=== PATIENT | male | born 1975 | race Caucasian/White ===

== ENCOUNTER → 2019-10-30 13:36 | Outpatient (BNVA) | payer MEDICARE, MEDICAID, SELFPAY | PROVIDERS: Family Provider Nurse Practitioner; PCP Nurse Practitioner; Visit Provider Nurse Practitioner Family | DX: E11.65 Type 2 diabetes mellitus with hyperglycemia (principal) | CPT/HCPCS: 36416; 80053; 80061; 82947; 82962; 83036; 83721; 85025 ==

== ENCOUNTER → 2019-11-19 10:55 | Outpatient (BNVA) | payer MEDICARE, MEDICAID, SELFPAY | PROVIDERS: Family Provider Nurse Practitioner; PCP Nurse Practitioner; Visit Provider Family Medicine | DX: E11.65 Type 2 diabetes mellitus with hyperglycemia (principal); I10 Essential (primary) hypertension; E53.8 Deficiency of other specified B group vitamins; G89.4 Chronic pain syndrome; K58.0 Irritable bowel syndrome with diarrhea; E78.2 Mixed hyperlipidemia; K21.9 Gastro-esophageal reflux disease without esophagitis; J06.9 Acute upper respiratory infection, unspecified; B97.89 Other viral agents as the cause of diseases classified elsewhere; A08.4 Viral intestinal infection, unspecified | CPT/HCPCS: 80053; 80061; 82607; 83036; 83735 ==

== ENCOUNTER → 2019-11-29 10:55 | Outpatient (BNVA) | payer MEDICARE, MEDICAID, SELFPAY | PROVIDERS: Family Provider Nurse Practitioner; PCP Family Medicine; Visit Provider Emergency Medicine | DX: J02.9 Acute pharyngitis, unspecified (principal); R22.1 Localized swelling, mass and lump, neck; R21 Rash and other nonspecific skin eruption | CPT/HCPCS: 87070 ==

== ENCOUNTER → 2019-12-05 17:28 | Outpatient (BNVA) | payer MEDICARE, MEDICAID, SELFPAY | PROVIDERS: Family Provider Nurse Practitioner; PCP Family Medicine; Visit Provider Emergency Medicine | DX: R22.9 Localized swelling, mass and lump, unspecified (principal) | CPT/HCPCS: 87070 ==

== ENCOUNTER 2019-12-09 12:33 | Outpatient (CLI) | payer MEDICARE, MEDICAID, SELFPAY ==
--- NOTE | 2019-12-09 13:00 | CT_ITS ---
WS: [id number] CT NECK TECHNIQUE: Noncontrast CT of the neck with coronal and sagittal reformatted images. CLINICAL INFORMATION: sub-madibular, anterior neck mass COMPARISON: None. DLP: 2892.[address] scans at [facility] use at least one of these dose optimization techniques: automat ed exposure control; mA and/or kV adjustment per patient size (includes targeted exams where dose is matched to clinical indication); or iterative reconstruction. FINDINGS: Parotid glands are normal. Submandibular glands are normal. No evidence of supraglottic or glottic ma ss. Normal parapharyngeal fat. Normal subglottic airway. No cervical lymphadenopathy. Mastoid air gavi ls are well aerated. Paranasal sinuses are well aerated. Anterior cervical fusion C3-C4 with interbod y fusion. Prior interbody fusion grafts at C4-C6. Straightening of the normal cervical lordosis. Lung apices are well aerated. CT/CT neck wo con [id number] IMPRESSION: 1. No evidence of neck mass or fluid collection. 2. Salivary glands are normal. 3. No cervical lymphadenopathy. 4. No evidence of supraglottic or glottic mass. 5. Anterior cervical fusion with hardware at C3-C4. Prior interbody bony fusio n at C4-C6.
== END 2019-12-09 12:34 | disposition home or self-care (01) ==
LOC: RADWPI 12:41
PROVIDERS: Family Provider Nurse Practitioner; PCP Family Medicine; Visit Provider Emergency Medicine
DX: R22.1 Localized swelling, mass and lump, neck (principal); Z98.1 Arthrodesis status
CPT/HCPCS: 70490

== ENCOUNTER → 2020-01-01 09:46 | Outpatient (BNVA) | payer MEDICARE, MEDICAID, SELFPAY | PROVIDERS: Family Provider Nurse Practitioner; PCP Family Medicine; Referring Provider Family Medicine; Visit Provider Specialist | DX: M79.645 Pain in left finger(s) (principal); Z46.89 Encounter for fitting and adjustment of other specified devices; M65.312 Trigger thumb, left thumb | CPT/HCPCS: 73130; L3809 ==

== ENCOUNTER 2020-01-01 14:05 | Outpatient (CLI) | payer MEDICARE, MEDICAID, SELFPAY | END 2020-01-01 14:06 | disposition home or self-care (01) | LOC: SPT 14:05 | PROVIDERS: Family Provider Nurse Practitioner; PCP Family Medicine; Visit Provider Specialist | DX: Z46.89 Encounter for fitting and adjustment of other specified devices (principal); M65.312 Trigger thumb, left thumb | CPT/HCPCS: L3809 ==

== ENCOUNTER → 2020-03-03 16:47 | Outpatient (BNVA) | payer MEDICARE, MEDICAID, SELFPAY | PROVIDERS: Family Provider Nurse Practitioner; PCP Family Medicine; Visit Provider Family Medicine | DX: E11.65 Type 2 diabetes mellitus with hyperglycemia (principal); E11.9 Type 2 diabetes mellitus without complications; I10 Essential (primary) hypertension; E78.5 Hyperlipidemia, unspecified; R79.89 Other specified abnormal findings of blood chemistry; E87.6 Hypokalemia; E83.42 Hypomagnesemia | CPT/HCPCS: 80048; 83036; 83735 ==

== ENCOUNTER 2020-03-14 20:37 | Emergency (ER) | payer MEDICARE, MEDICAID, SELFPAY ==
[2020-03-14] VITALS (16 sets, daily range): BP systolic 98–119; BP diastolic 70–86; PULSE 78–96; RESP 15–20; TEMP 36.6; O2SAT 95–99; BMI 27.3
--- NOTE | 2020-03-14 20:51 | CTR_ITS ---
PROCEDURE INFORMATION: Exam: CT Head Without Contrast Exam date and time: 03/14/2020 9:01 PM Age: 44 years old Clinical indication: Patient HX: C/O weakness, can't think straight; Additional info: ? Stroke TECHNIQUE: Imaging protocol: Computed tomography of the head without contrast. Radiation optimization: All CT scans at this facility use at least one of these dose optimization techniques: automated exposure control; mA and/or kV adjustment per patient size (includes targeted exams where dose is matched to clinical indication); or iterative reconstruction. COMPARISON: CT head wo con* [id number] 03/27/2018 9:53 PM RADIATION DOSE METRICS: Total DLP: 777.74 mGy-cm FINDINGS: Brain: The brain is unremarkable. There is no mass effect or significant white matter disease. There is no acute intracranial hemorrhage. Ventricles: There is no significant ventricular dilation. The basal cisterns are unremarkable. Bones/joints: The calvarium is intact. Sinuses: The paranasal sinuses are clear. Mastoid air cells: The mastoid air cells are clear. Soft tissues: The visible extracranial soft tissues are unremarkable. CT/CT head wo con* [id number] IMPRESSION: No acute findings. Radiation Dose CTDIVOL = (mGy): DLP = 777.74 (mGy-cm)
[2020-03-14 21:08] LABS: Basophils # 0.1 10^3/uL (0.0-0.1); Basophils % 0.6 %; Eosinophils # 0.3 10^3/uL (0.0-0.8); Eosinophils % 2.6 %; Hematocrit 45.2 % (42.0-52.0); Hemoglobin 13.9 g/dL (11.7-16.6); Lymphocytes # 2.8 10^3/uL (0.8-4.8); Mean Corpuscular HGB Conc 30.8 g/dL (30.0-36.0); Mean Corpuscular Hemoglobin 27.8 pg (28.0-34.0); Mean Corpuscular Volume 90.4 fL (80-94); Mean Platelet Volume 11.2 fL (7.4-10.4); Monocytes # 1.1 10^3/uL (0.2-0.9); Monocytes % 10.9 %; Neutrophils # 5.8 10^3/uL (1.8-7.7); Neutrophils % 57.4 %; Nucleated Red Blood Cells % 0 %; Platelet Count 246 10^3/cmm (130-400); Red Cell Distribution Width 13.7 % (12.1-15.1); White Blood Count 10.1 10^3/uL (4.0-10.0)
[2020-03-14 21:14] LABS: Ketone (Acetest) Serum Negative (Negative)
[2020-03-14 21:20] LABS: Lactate (Lactic Acid level) 1.4 mmol/L (0.5-2.2)
[2020-03-14 21:24] LABS: Alanine Aminotransferase 77 U/L (0-41); Albumin Level 4.1 g/dL (3.5-5.2); Alkaline Phosphatase 83 IU/L (40-130); Aspartate Amino Transferase 30 U/L (0-40); Blood Urea Nitrogen 18 mg/dL (6-20); Calcium 9.7 mg/dL (8.5-10.5); Carbon Dioxide 24 mmol/L (22-29); Chloride 104 mmol/L (98-107); Globulin 3.6 g/dL (1.3-4.6); Glomerular Filtration Rate 60.2 mL/min (90-130); Glucose 125 mg/dL (65-115); Magnesium 1.9 mg/dL (1.7-2.3); Osmolality Calculated 290 mOsm/kg (285-295); Sodium 141 mmol/L (136-145); Total Bilirubin 0.2 mg/dL (0.15-1.2); Total Protein 7.7 g/dL (6.6-8.7)
[2020-03-14 21:30] LABS: Alcohol Level < 10 mg/dL (0-10)
[2020-03-14] MEDS: sodium chloride 0.9% 1,000 ML 999 ML IV (21:32)
--- NOTE | 2020-03-14 21:34 | W.ED.WEAKNES ---
Documented by User: Jordyn Keating MD 03/16/20 19:22 HPI - Weakness General: Chief complaint: Weakness Stated complaint: TIA Time Seen by Provider: 03/14/20 20:41 History of Present Illness: HPI Narrative: Patient is a 44 year old male presenting with confusion and memory loss since about 3 pm. He reports that he has had a stroke before and had left sided weakness and slurred speech with that. He is worried that this is a stroke again. He says that he was sleepy and out of it at home and couldn't remember his grandkids names. He says that he still feels that way on the ED however he was able to give detailed surgical history including years, doctors names and where the procedures were done. Quality: aching (pain on his right side) Associated symptoms: Reports confusion; Denies chest pain, chills, easy bruising, fever(s), nausea or vomiting Review of Systems General: Reports: 10 or more systems reviewed and unremarkable except in HPI and below Const: Denies: fever(s), chills, fatigue or malaise Eyes: Reports: change in vision and blurry vision ENMT: Denies: odynophagia Card: Denies: chest pain or swelling of feet/ankles Resp: Denies: dyspnea, productive cough or non-productive cough GI: Denies: abdominal pain, nausea or vomiting : Denies: flank pain Musc: Denies: neck pain or back pain Skin/Breast: Denies: rash Neuro: Reports: numbness in extremities (mid forearm on the right, and right foot), sensory changes and confusion; Denies: weakness in extremities Nba/Lymph: Denies: easy bruising or easy bleeding PFSH ED PFSH: Medical History ADD (attention deficit disorder) Chronic pain syndrome GERD (gastroesophageal reflux disease) Hyperlipidemia Hypertension Irritable bowel syndrome Tobacco use Type 2 diabetes mellitus Social History Smoking and tobacco status: current every day smoker cigarettes and smokeless tobacco Quit status (tobacco): not considering quitting Second hand smoke exposure: Yes Smoking risk assessment/counseling performed?: No Alcohol intake: current Alcohol intake frequency: holidays/special occasions only Alcohol type: hard liquor Desire information about alcohol rehabilitation?: No Household members: spouse Current gender identity: Male Physical Exam Narrative: EXAM NARRATIVE: Patient talked non-stop throughout the history and exam Const: COMMON NORMALS: no acute distress, patient oriented x3, no limitations and alert GENERAL APPEARANCE: cooperative and comfortable HENMT: HEAD & SCALP: normal to inspection FACE & SINUS: normal facial exam Eye: GENERAL EYE: appearance normal, both eyes and all related structures Neck/C-Spine: COMMON NORMALS: supple, no meningeal signs and no JVD Chest: COMMONS NORMALS: normal inspection of the chest Resp: COMMON NORMALS: normal respiratory effort, No use of accessory muscles and clear to auscultation bilaterally AUSCULTATION: clear to auscultation bilaterally Cardio: COMMON NORMALS: no JVD, regular rate, regular rhythm and No murmurs present (Cardio) RATE: regular rate RHYTHM: regular rhythm GI: COMMON NORMALS: Normal to inspection, nondistended, normoactive bowel sounds present, Soft to palpation and non-tender INSPECTION: Yes normal to inspection AUSCULTATION: Yes normoactive bowel sounds PALPATION: Yes Soft to palpation Back/Pelvis: COMMON NORMALS: thoracic and lumbar spine normal to inspection Extremity: COMMON NORMALS: normal to inspection Neuro: COMMON NORMALS: patient oriented x3, moves all extremities, no focal motor deficits and no sensory deficits noted SENSORIUM/ORIENTATION: Yes alert MENINGEAL SIGNS: Yes no meningeal signs Psych: COMMON NORMALS: mental status grossly normal, cooperative and normal affect Skin: COMMON NORMALS: no rashes or lesions noted and turgor normal GENERAL SKIN EXAM: no rashes or lesions noted and turgor normal Course ED course: Stroke work up neg. Patient was ready to be discharged and started complaining of severe right lower quadrant pain. he says that it started after the IV was put in his arm. Will get a non contrast CT to eval for a kidney stone. Vital Signs: Vital signs: Vital Signs Temperature 97.8 F 03/14/20 20:43 Pulse Rate 96 03/14/20 23:40 Respiratory Rate 19 H 03/14/20 23:40 Blood Pressure 108/75 03/15/20 00:00 Pulse Oximetry 95 03/14/20 23:40 MDM - Weakness Lab Data: Labs: Lab Results 03/14/20 03/14/20 03/14/20 Range/Units 20:55 20:55 20:55 WBC 10.1 H (4.0-10.0) 10^3/ uL RBC 5.00 (4.1-5.3) 10^6/u L Hgb 13.9 (11.7-16.6) g/dL Hct 45.2 (42.0-52.0) % MCV 90.4 (80-94) fL MCH 27.8 L (28.0-34.0) pg MCHC 30.8 (30.0-36.0) g/dL RDW 13.7 (12.1-15.1) % Plt Count 246 (130-400) 10^3/c mm MPV 11.2 H (7.4-10.4) fL Neut % (Auto) 57.4 % Lymph % (Auto) 28.0 % [place] % (Auto) 10.9 % Eos % (Auto) 2.6 % Baso % (Auto) 0.6 % Neut # (Auto) 5.8 (1.8-7.7) 10^3/u L Lymph # (Auto) 2.8 (0.8-4.8) 10^3/u L [place] # (Auto) 1.1 H (0.2-0.9) 10^3/u L Eos # (Auto) 0.3 (0.0-0.8) 10^3/u L Baso # (Auto) 0.1 (0.0-0.1) 10^3/u L Nucleated RBC % (a uto) 0 % Nucleated RBCs # 0.0 /100WBC Sodium 141 (136-145) mmol/L Potassium 4.0 (3.5-5.1) mmol/L Chloride 104 (98-107) mmol/L Carbon Dioxide 24 (22-29) mmol/L Anion Gap 17.0 (5-19) BUN 18 (6-20) mg/dL Creatinine 1.3 H (0.7-1.2) mg/dL GFR Calculation 60.2 L (90-130) mL/min Glucose 125 H (65-115) mg/dL Calculated Osmolal ity 290 (285-295) mOsm/k g Lactate 1.4 (0.5-2.2) mmol/L Calcium 9.7 (8.5-10.5) mg/dL Magnesium 1.9 (1.7-2.3) mg/dL Total Bilirubin 0.2 (0.15-1.2) mg/dL AST 30 (0-40) U/L ALT 77 H (0-41) U/L Alkaline Phosphata se 83 (40-130) IU/L Total Protein 7.7 (6.6-8.7) g/dL Albumin 4.1 (3.5-5.2) g/dL Globulin 3.6 (1.3-4.6) g/dL Urine Color (Yellow) Urine Appearance (CLEAR) Urine pH (5-7) Ur Specific Gravit y (1.005-1.030) Urine Protein (Negative) Urine Glucose (UA) (Normal) Urine Ketones (Negative) Urine Blood (Negative) Urine Nitrate (Negative) Urine Bilirubin (NEGATIVE) Urine Urobilinogen (Negative) mg/dL Ur Leukocyte Carmen ase (Negative) Urine Opiates Scre en (Negative) ng/mL Ur Barbiturates Sc reen (Negative) ng/mL Ur Phencyclidine S crn (Negative) ng/mL Ur Amphetamines Sc reen (Negative) ng/mL U Benzodiazepines Scrn (Negative) ng/mL Urine Cocaine Scre en (Negative) ng/mL U Marijuana (THC) Screen (Negative) ng/mL Ethyl Alcohol < 10 (0-10) mg/dL Serum Ketones (Negative) 03/14/20 03/14/20 03/14/20 Range/Units 20:55 21:30 21:30 WBC (4.0-10.0) 10^3/ uL RBC (4.1-5.3) 10^6/u L Hgb (11.7-16.6) g/dL Hct (42.0-52.0) % MCV (80-94) fL MCH (28.0-34.0) pg MCHC (30.0-36.0) g/dL RDW (12.1-15.1) % Plt Count (130-400) 10^3/c mm MPV (7.4-10.4) fL Neut % (Auto) % Lymph % (Auto) % [place] % (Auto) % Eos % (Auto) % Baso % (Auto) % Neut # (Auto) (1.8-7.7) 10^3/u L Lymph # (Auto) (0.8-4.8) 10^3/u L [place] # (Auto) (0.2-0.9) 10^3/u L Eos # (Auto) (0.0-0.8) 10^3/u L Baso # (Auto) (0.0-0.1) 10^3/u L Nucleated RBC % (a uto) % Nucleated RBCs # /100WBC Sodium (136-145) mmol/L Potassium (3.5-5.1) mmol/L Chloride (98-107) mmol/L Carbon Dioxide (22-29) mmol/L Anion Gap (5-19) BUN (6-20) mg/dL Creatinine (0.7-1.2) mg/dL GFR Calculation (90-130) mL/min Glucose (65-115) mg/dL Calculated Osmolal ity (285-295) mOsm/k g Lactate (0.5-2.2) mmol/L Calcium (8.5-10.5) mg/dL Magnesium (1.7-2.3) mg/dL Total Bilirubin (0.15-1.2) mg/dL AST (0-40) U/L ALT (0-41) U/L Alkaline Phosphata se (40-130) IU/L Total Protein (6.6-8.7) g/dL Albumin (3.5-5.2) g/dL Globulin (1.3-4.6) g/dL Urine Color Yellow (Yellow) Urine Appearance Clear (CLEAR) Urine pH 5 (5-7) Ur Specific Gravit y 1.015 (1.005-1.030) Urine Protein Neg (Negative) Urine Glucose (UA) 4+ H (Normal) Urine Ketones Negative (Negative) Urine Blood Neg (Negative) Urine Nitrate Negative (Negative) Urine Bilirubin Neg (NEGATIVE) Urine Urobilinogen Norm (Negative) mg/dL Ur Leukocyte Carmen ase Negative (Negative) Urine Opiates Scre en Negative (Negative) ng/mL Ur Barbiturates Sc reen Negative (Negative) ng/mL Ur Phencyclidine S crn Negative (Negative) ng/mL Ur Amphetamines Sc reen Negative (Negative) ng/mL U Benzodiazepines Scrn Positive H (Negative) ng/mL Urine Cocaine Scre en Negative (Negative) ng/mL U Marijuana (THC) Screen Negative (Negative) ng/mL Ethyl Alcohol (0-10) mg/dL Serum Ketones Negative (Negative) Discharge Plan Discharge Patient Disposition: Home, Self-Care Clinical Impression: Acute confusion, Acute right flank pain Condition: Stable Prescriptions: No Action albuterol sulfate [ProAir HFA] 90 mcg/actuation HFA aerosol inhaler 1 - 2 puff INHALATION Q6H PRNRF: 0 gabapentin 300 mg capsule 300 mg PO TID RF: 0 dextroamphetamine-amphetamine [Adderall] 20 mg tablet 20 mg PO .COMPLEX RF: 0 dextroamphetamine-amphetamine [Adderall] 30 mg tablet 30 mg PO .COMPLEX RF: 0 Viibryd 40 mg tablet 40 mg PO .COMPLEX RF: 0 mirtazapine [Remeron] 15 mg tablet 15 mg PO .COMPLEX RF: 0 dicyclomine 10 mg capsule 10 mg PO QID PRN (Reason: abdominal discomfort) 30 Days Qty: 60 RF: 2 ibuprofen 800 mg tablet 800 mg PO Q8H PRN (Reason: fever or pain) 30 Days Qty: 90 RF: 5 (DME) Thumb spica Qty: 1 RF: 0 canagliflozin 300 mg tablet 300 mg PO QAM 30 Days Qty: 30 RF: 2 Lantus Solostar U-100 Insulin 100 unit/mL (3 mL) insulin pen 10 unit SUBCUT DAILY 30 Days Qty: 3 RF: 2 (DME) Comfort EZ Pen [place] 32 gauge x 5/16 needle See Rx Instructions .ROUTE .MEDSUPPLY Qty: 100 RF: 11 metformin 500 mg tablet extended release 24 hr 500 mg PO QDAY 30 Days Qty: 30 RF: 2 metoprolol succinate 50 mg tablet extended release 24 hr 50 mg PO DAILY 30 Days Qty: 30 RF: 2 lisinopril 5 mg tablet 5 mg PO QDAY 30 Days Qty: 30 RF: 2 lovastatin 20 mg tablet 20 mg PO QDAY 30 Days Qty: 30 RF: 11 nicotine 21 mg/24 hr patch 24 hour 1 patch TRANSDERMA Q24H 14 Days Qty: 14 RF: 5 mupirocin 2 % ointment 1 applic TOPICAL TID 14 Days Qty: 30 RF: 2 cyclobenzaprine 10 mg tablet 10 mg PO TID PRN (Reason: muscle spasm) 30 Days Qty: 90 RF: 2 omeprazole 20 mg capsule,delayed release(DR/EC) See Rx Instructions .ROUTE .COMPLEX Qty: 30 RF: 0 Discharge Orders: Discharge Order (Routine); Ordered 03/15/20 Ordered By: Jose Harrell Referrals: Armida García FNP [Family Provider] - Usha López MD [Primary Care Provider] - Discharge Diet: Diabetic Discharge Activity: Resume usual activity Patient Instructions: Abdominal Pain (ED) Activity Restrictions/Additional Instructions: Follow up with your regular doctor for further evaluation of your symptoms. Discharge Date/Time: 03/15/20 00:22 Coding Level of Care Code ED Software Configuration Engineer for Chg Fwd Exam Comprehensive Documented by User: Jose Harrell DO 03/15/20 02:51 HPI - Weakness General: Chief complaint: Weakness Stated complaint: TIA Time Seen by Provider: 03/14/20 20:41 PFSH ED PFSH: Medical History ADD (attention deficit disorder) Chronic pain syndrome GERD (gastroesophageal reflux disease) Hyperlipidemia Hypertension Irritable bowel syndrome Tobacco use Type 2 diabetes mellitus Social History Smoking and tobacco status: current every day smoker cigarettes and smokeless tobacco Quit status (tobacco): not considering quitting Second hand smoke exposure: Yes Smoking risk assessment/counseling performed?: No Alcohol intake: current Alcohol intake frequency: holidays/special occasions only Alcohol type: hard liquor Desire information about alcohol rehabilitation?: No Household members: spouse Current gender identity: Male Course Vital Signs: Vital signs: Vital Signs Temperature 97.8 F 03/14/20 20:43 Pulse Rate 96 03/14/20 23:40 Respiratory Rate 19 H 03/14/20 23:40 Blood Pressure 108/75 03/15/20 00:00 Pulse Oximetry 95 03/14/20 23:40 MDM - Weakness MDM Narrative: Medical decision making narrative: 44-year-old male, presented with several complaints. He was checked out to me by Dr. Keating at shift change, as while he was here, he developed right lower quadrant/flank pain. His CT was negative for kidney stone, or other problem on the right abdomen. He will be allowed discharge. Lab Data: Labs: Lab Results 03/14/20 03/14/20 03/14/20 Range/Units 20:55 20:55 20:55 WBC 10.1 H (4.0-10.0) 10^3/ uL RBC 5.00 (4.1-5.3) 10^6/u L Hgb 13.9 (11.7-16.6) g/dL Hct 45.2 (42.0-52.0) % MCV 90.4 (80-94) fL MCH 27.8 L (28.0-34.0) pg MCHC 30.8 (30.0-36.0) g/dL RDW 13.7 (12.1-15.1) % Plt Count 246 (130-400) 10^3/c mm MPV 11.2 H (7.4-10.4) fL Neut % (Auto) 57.4 % Lymph % (Auto) 28.0 % [place] % (Auto) 10.9 % Eos % (Auto) 2.6 % Baso % (Auto) 0.6 % Neut # (Auto) 5.8 (1.8-7.7) 10^3/u L Lymph # (Auto) 2.8 (0.8-4.8) 10^3/u L [place] # (Auto) 1.1 H (0.2-0.9) 10^3/u L Eos # (Auto) 0.3 (0.0-0.8) 10^3/u L Baso # (Auto) 0.1 (0.0-0.1) 10^3/u L Nucleated RBC % (a uto) 0 % Nucleated RBCs # 0.0 /100WBC Sodium 141 (136-145) mmol/L Potassium 4.0 (3.5-5.1) mmol/L Chloride 104 (98-107) mmol/L Carbon Dioxide 24 (22-29) mmol/L Anion Gap 17.0 (5-19) BUN 18 (6-20) mg/dL Creatinine 1.3 H (0.7-1.2) mg/dL GFR Calculation 60.2 L (90-130) mL/min Glucose 125 H (65-115) mg/dL Calculated Osmolal ity 290 (285-295) mOsm/k g Lactate 1.4 (0.5-2.2) mmol/L Calcium 9.7 (8.5-10.5) mg/dL Magnesium 1.9 (1.7-2.3) mg/dL Total Bilirubin 0.2 (0.15-1.2) mg/dL AST 30 (0-40) U/L ALT 77 H (0-41) U/L Alkaline Phosphata se 83 (40-130) IU/L Total Protein 7.7 (6.6-8.7) g/dL Albumin 4.1 (3.5-5.2) g/dL Globulin 3.6 (1.3-4.6) g/dL Urine Color (Yellow) Urine Appearance (CLEAR) Urine pH (5-7) Ur Specific Gravit y (1.005-1.030) Urine Protein (Negative) Urine Glucose (UA) (Normal) Urine Ketones (Negative) Urine Blood (Negative) Urine Nitrate (Negative) Urine Bilirubin (NEGATIVE) Urine Urobilinogen (Negative) mg/dL Ur Leukocyte Carmen ase (Negative) Urine Opiates Scre en (Negative) ng/mL Ur Barbiturates Sc reen (Negative) ng/mL Ur Phencyclidine S crn (Negative) ng/mL Ur Amphetamines Sc reen (Negative) ng/mL U Benzodiazepines Scrn (Negative) ng/mL Urine Cocaine Scre en (Negative) ng/mL U Marijuana (THC) Screen (Negative) ng/mL Ethyl Alcohol < 10 (0-10) mg/dL Serum Ketones (Negative) 03/14/20 03/14/20 03/14/20 Range/Units 20:55 21:30 21:30 WBC (4.0-10.0) 10^3/ uL RBC (4.1-5.3) 10^6/u L Hgb (11.7-16.6) g/dL Hct (42.0-52.0) % MCV (80-94) fL MCH (28.0-34.0) pg MCHC (30.0-36.0) g/dL RDW (12.1-15.1) % Plt Count (130-400) 10^3/c mm MPV (7.4-10.4) fL Neut % (Auto) % Lymph % (Auto) % [place] % (Auto) % Eos % (Auto) % Baso % (Auto) % Neut # (Auto) (1.8-7.7) 10^3/u L Lymph # (Auto) (0.8-4.8) 10^3/u L [place] # (Auto) (0.2-0.9) 10^3/u L Eos # (Auto) (0.0-0.8) 10^3/u L Baso # (Auto) (0.0-0.1) 10^3/u L Nucleated RBC % (a uto) % Nucleated RBCs # /100WBC Sodium (136-145) mmol/L Potassium (3.5-5.1) mmol/L Chloride (98-107) mmol/L Carbon Dioxide (22-29) mmol/L Anion Gap (5-19) BUN (6-20) mg/dL Creatinine (0.7-1.2) mg/dL GFR Calculation (90-130) mL/min Glucose (65-115) mg/dL Calculated Osmolal ity (285-295) mOsm/k g Lactate (0.5-2.2) mmol/L Calcium (8.5-10.5) mg/dL Magnesium (1.7-2.3) mg/dL Total Bilirubin (0.15-1.2) mg/dL AST (0-40) U/L ALT (0-41) U/L Alkaline Phosphata se (40-130) IU/L Total Protein (6.6-8.7) g/dL Albumin (3.5-5.2) g/dL Globulin (1.3-4.6) g/dL Urine Color Yellow (Yellow) Urine Appearance Clear (CLEAR) Urine pH 5 (5-7) Ur Specific Gravit y 1.015 (1.005-1.030) Urine Protein Neg (Negative) Urine Glucose (UA) 4+ H (Normal) Urine Ketones Negative (Negative) Urine Blood Neg (Negative) Urine Nitrate Negative (Negative) Urine Bilirubin Neg (NEGATIVE) Urine Urobilinogen Norm (Negative) mg/dL Ur Leukocyte Carmen ase Negative (Negative) Urine Opiates Scre en Negative (Negative) ng/mL Ur Barbiturates Sc reen Negative (Negative) ng/mL Ur Phencyclidine S crn Negative (Negative) ng/mL Ur Amphetamines Sc reen Negative (Negative) ng/mL U Benzodiazepines Scrn Positive H (Negative) ng/mL Urine Cocaine Scre en Negative (Negative) ng/mL U Marijuana (THC) Screen Negative (Negative) ng/mL Ethyl Alcohol (0-10) mg/dL Serum Ketones Negative (Negative) Discharge Plan Discharge Patient Disposition: Home, Self-Care Clinical Impression: Acute confusion, Acute right flank pain Condition: Stable Prescriptions: No Action albuterol sulfate [ProAir HFA] 90 mcg/actuation HFA aerosol inhaler 1 - 2 puff INHALATION Q6H PRNRF: 0 gabapentin 300 mg capsule 300 mg PO TID RF: 0 dextroamphetamine-amphetamine [Adderall] 20 mg tablet 20 mg PO .COMPLEX RF: 0 dextroamphetamine-amphetamine [Adderall] 30 mg tablet 30 mg PO .COMPLEX RF: 0 Viibryd 40 mg tablet 40 mg PO .COMPLEX RF: 0 mirtazapine [Remeron] 15 mg tablet 15 mg PO .COMPLEX RF: 0 dicyclomine 10 mg capsule 10 mg PO QID PRN (Reason: abdominal discomfort) 30 Days Qty: 60 RF: 2 ibuprofen 800 mg tablet 800 mg PO Q8H PRN (Reason: fever or pain) 30 Days Qty: 90 RF: 5 (DME) Thumb spica Qty: 1 RF: 0 canagliflozin 300 mg tablet 300 mg PO QAM 30 Days Qty: 30 RF: 2 Lantus Solostar U-100 Insulin 100 unit/mL (3 mL) insulin pen 10 unit SUBCUT DAILY 30 Days Qty: 3 RF: 2 (DME) Comfort EZ Pen [place] 32 gauge x 5/16 needle See Rx Instructions .ROUTE .MEDSUPPLY Qty: 100 RF: 11 metformin 500 mg tablet extended release 24 hr 500 mg PO QDAY 30 Days Qty: 30 RF: 2 metoprolol succinate 50 mg tablet extended release 24 hr 50 mg PO DAILY 30 Days Qty: 30 RF: 2 lisinopril 5 mg tablet 5 mg PO QDAY 30 Days Qty: 30 RF: 2 lovastatin 20 mg tablet 20 mg PO QDAY 30 Days Qty: 30 RF: 11 nicotine 21 mg/24 hr patch 24 hour 1 patch TRANSDERMA Q24H 14 Days Qty: 14 RF: 5 mupirocin 2 % ointment 1 applic TOPICAL TID 14 Days Qty: 30 RF: 2 cyclobenzaprine 10 mg tablet 10 mg PO TID PRN (Reason: muscle spasm) 30 Days Qty: 90 RF: 2 omeprazole 20 mg capsule,delayed release(DR/EC) See Rx Instructions .ROUTE .COMPLEX Qty: 30 RF: 0 Discharge Orders: Discharge Order (Routine); Ordered 03/15/20 Ordered By: Jose Harrell Referrals: Armida García FNP [Family Provider] - Usha López MD [Primary Care Provider] - Discharge Diet: Diabetic Discharge Activity: Resume usual activity Patient Instructions: Abdominal Pain (ED) Activity Restrictions/Additional Instructions: Follow up with your regular doctor for further evaluation of your symptoms. Discharge Date/Time: 03/15/20 00:22 Coding Level of Care Code ED Software Configuration Engineer for Chg Fwd Exam Comprehensive
[2020-03-14 21:49] LABS: Add Urine Microscopic? NO
[2020-03-14 21:58] LABS: Bilirubin Urine Neg (NEGATIVE); Blood Urine Neg (Negative); Glucose Urine UA 4+ (Normal); Ketones Urine Negative (Negative); Leukocyte Esterase Urine Negative (Negative); Nitrate Urine Negative (Negative); Protein Urine Neg (Negative); Specific Gravity, Urine 1.015 (1.005-1.030); Urine Appearance Clear (CLEAR); Urine Color Yellow (Yellow); Urobilinogen Urine Norm (Negative); pH Urine 5 (5-7)
[2020-03-14 22:00] LABS: Amphetamines Screen Urine Negative (Negative); Barbiturates Screen Urine Negative (Negative); Benzodiazepines Screen Urine Positive (Negative); Cocaine Screen Urine Negative (Negative); Opiate Screen Urine Negative (Negative); PCP Screen Urine Negative (Negative); THC Screen Urine Negative (Negative)
--- NOTE | 2020-03-14 23:02 | CTR_ITS ---
PROCEDURE INFORMATION: Exam: CT Abdomen And Pelvis Without Contrast Exam date and time: 03/14/2020 11:03 PM Age: 44 years old Clinical indication: Abdominal pain; Right; Patient HX: C/O R flank pain; Additional info: Right flank pain TECHNIQUE: Imaging protocol: Computed tomography of the abdomen and pelvis without contrast. Radiation optimization: All CT scans at this facility use at least one of these dose optimization techniques: automated exposure control; mA and/or kV adjustment per patient size (includes targeted exams where dose is matched to clinical indication); or iterative reconstruction. COMPARISON: No relevant prior studies available. RADIATION DOSE METRICS: Total DLP: 1046.24 mGy-cm FINDINGS: Lungs: Lung bases are clear. Liver: The liver is normal. Gallbladder and bile ducts: The gallbladder is normal. There is no biliary dilation. Pancreas: The pancreas is unremarkable. Spleen: The spleen is unremarkable. Adrenals: The adrenal glands are unremarkable. Kidneys and ureters: The kidneys are unremarkable. No hydronephrosis or stones. No ureteral dilation. Stomach and bowel: The stomach is unremarkable. The small bowel is nondilated. There is no sign of inflammation. The colon is unremarkable. Appendix: The appendix is normal. Intraperitoneal space: There is no free air or significant intraperitoneal free fluid. Vasculature: The aorta is unremarkable. There is no aneurysm. Lymph nodes: There is no lymphadenopathy in the retroperitoneum, mesentery, pelvis or inguinal regions. Bladder: The urinary bladder is unremarkable. Reproductive: The prostate and seminal vesicles are unremarkable. Bones/joints: There is mild degenerative disease in the lower lumbar spine. Bones are unremarkable. Soft tissues: The abdominal wall is intact. CT/CT kidney stone [id number] IMPRESSION: 1. No acute findings. 2. No obstructive uropathy. No stones. Radiation Dose CTDIVOL = (mGy): DLP = 1046.24 (mGy-cm)
--- NOTE | 2020-03-14 23:09 | PC.NURSE ---
pt. care and report given to Piotr COX
[2020-03-14] MEDS: ketorolac 30 mg/mL INJ 15 MG IVP (23:38)
[2020-03-15] VITALS: BP 108/75
== END 2020-03-15 00:22 | disposition home or self-care (01) ==
PROVIDERS: Emergency Medicine; Emergency Provider Emergency Medicine; Family Provider Nurse Practitioner; PCP Family Medicine
DX: R41.0 Disorientation, unspecified (principal); R10.9 Unspecified abdominal pain; Z79.4 Long term (current) use of insulin; E78.5 Hyperlipidemia, unspecified; I10 Essential (primary) hypertension; E11.9 Type 2 diabetes mellitus without complications; F17.210 Nicotine dependence, cigarettes, uncomplicated
CPT/HCPCS: 12345; 36415; 70450; 74176; 80053; 80306; 80307; 81003; 82009; 83605; 83735; 85025; 96361; 96374; 99284; J1885; J7030

== ENCOUNTER 2020-03-17 18:06 | Emergency (ER) | payer MEDICARE, MEDICAID, SELFPAY ==
[2020-03-17 18:20] VITALS: BP 155/67; PULSE 80; RESP 16; TEMP 36.6; O2SAT 98; BMI 28.1
[2020-03-17 18:30] VITALS: BP 123/63; PULSE 75; RESP 16; O2SAT 96
--- NOTE | 2020-03-17 18:33 | ECG_ITS ---
Measurements Intervals [place] Rate: 65 P: 26 NC: 164 QRS: 65 QRSD: 88 T: 18 QT: 385 QTc: 401 SINUS RHYTHM Compared to ECG 03/27/2018 21:36:20 Sinus tachycardia no longer present Electronically Signed On 03-17-2020 21:53:33 CDT by Andreea Harrell M.D. [email or web address]
--- NOTE | 2020-03-17 18:33 | XR_ITS ---
WS: [id number] PORTABLE CHEST HISTORY: cp COMPARISON: 10/13/2008 Lungs are clear and well expanded. No pleural effusion or pneumothorax. Cardiac size: Normal. Mediastinum/Aorta: No change in appearance of the mediastinum since the prior study. No osseous abnormality seen. XR/XR chest 1V portable [id number] IMPRESSION: Unremarkable portable chest.
[2020-03-17 18:41] LABS: Basophils % 0.5 %; Eosinophils # 0.2 10^3/uL (0.0-0.8); Eosinophils % 2.3 %; Hematocrit 41.3 % (42.0-52.0); Hemoglobin 12.5 g/dL (11.7-16.6); Lymphocytes # 2.1 10^3/uL (0.8-4.8); Lymphocytes % 25.6 %; Mean Corpuscular HGB Conc 30.3 g/dL (30.0-36.0); Mean Corpuscular Hemoglobin 27.9 pg (28.0-34.0); Mean Corpuscular Volume 92.2 fL (80-94); Monocytes # 0.9 10^3/uL (0.2-0.9); Monocytes % 11.1 %; Neutrophils # 4.9 10^3/uL (1.8-7.7); Neutrophils % 59.9 %; Nucleated Red Blood Cells % 0 %; Platelet Count 212 10^3/cmm (130-400); Red Blood Count 4.48 10^6/uL (4.1-5.3); White Blood Count 8.1 10^3/uL (4.0-10.0)
--- NOTE | 2020-03-17 18:42 | W.ED.GENADLT ---
HPI - General Adult General: Chief complaint: General Medical Stated complaint: memory issues Time Seen by Provider: 03/17/20 18:22 Source: patient Mode of arrival: ambulatory Limitations: no limitations History of Present Illness: HPI narrative: Patient is a 44-year-old male here with multiple complaints. Patient was seen here 2 days ago and at [facility] yesterday. He states he has been feeling very anxious and has been having chest pain. He states he is also been having gradual memory loss over the years. He denies any fever. He states his pain is been sharp in nature over the last 2 days. He denies any worsening or improving factors. Patient denies any suicidal or homicidal thoughts. He states that he just been generally anxious over the last 3 days. Associated symptoms: Reports chest pain; Deny dyspnea, headache(s), nausea, rash or vomiting Review of Systems Const: Denies: fever(s), chills, body aches or change in appetite Eyes: Denies: blurry vision or eye discomfort ENMT: Denies: throat pain or dental pain Card: Reports: chest pain Resp: Denies: dyspnea GI: Denies: abdominal pain, nausea, vomiting or diarrhea : Denies: dysuria Musc: Denies: neck pain or back pain Skin/Breast: Denies: rash Neuro: Denies: headache(s) Psych: Reports: anxiety Nba/Lymph: Denies: easy bruising All/Imm: Denies: urticaria PFSH ED PFSH: Medical History ADD (attention deficit disorder) Chronic pain syndrome GERD (gastroesophageal reflux disease) Hyperlipidemia Hypertension Irritable bowel syndrome Tobacco use Type 2 diabetes mellitus Social History Smoking and tobacco status: current every day smoker cigarettes and smokeless tobacco Quit status (tobacco): not considering quitting Second hand smoke exposure: Yes Smoking risk assessment/counseling performed?: No Alcohol intake: current Alcohol intake frequency: holidays/special occasions only Alcohol type: hard liquor Desire information about alcohol rehabilitation?: No Household members: spouse Current gender identity: Male Physical Exam Const: COMMON NORMALS: no acute distress, patient oriented x3 and healthy appearing HENMT: COMMON NORMALS: normocephalic and atraumatic HEAD & SCALP: normocephalic and atraumatic Eye: COMMON NORMALS: Equal, round and reactive pupils present and EOMs intact bilaterally PUPIL: Yes Equal, round and reactive pupils present Neck/C-Spine: COMMON NORMALS: full ROM and supple Chest: COMMONS NORMALS: normal inspection of the chest and normal palpation of entire chest wall Resp: COMMON NORMALS: normal respiratory effort, No retractions, No use of accessory muscles and clear to auscultation bilaterally AUSCULTATION: clear to auscultation bilaterally Cardio: COMMON NORMALS: regular rate, regular rhythm and No murmurs present (Cardio) RATE: regular rate RHYTHM: regular rhythm GI: COMMON NORMALS: Normal to inspection, nondistended, normoactive bowel sounds present, Soft to palpation, non-tender and no masses PALPATION: Yes Soft to palpation Extremity: COMMON NORMALS: normal to inspection and full ROM Neuro: COMMON NORMALS: patient oriented x3, moves all extremities and no focal motor deficits Psych: COMMON NORMALS: mental status grossly normal, Normal thought process present and cooperative THOUGHT PROCESS: Normal thought process present Skin: COMMON NORMALS: no rashes or lesions noted and no wounds GENERAL SKIN EXAM: no rashes or lesions noted Course Vital Signs: Vital signs: Vital Signs Temperature 97.9 F 03/17/20 18:20 Pulse Rate 71 03/17/20 20:17 Respiratory Rate 17 03/17/20 20:17 Blood Pressure 112/73 03/17/20 20:17 Pulse Oximetry 100 03/17/20 20:17 MDM - General Adult MDM Narrative: Medical decision making narrative: Patient presents here with atypical chest pain and anxiety. Patient's lab work including EKG and troponin are all normal. Patient is stable for discharge is to follow-up with primary care doctor in 3 to 5 days and return if worsening. Lab Data: Labs: Lab Results 03/17/20 03/17/20 03/17/20 Range/Units 18:34 18:34 18:34 WBC 8.1 (4.0-10.0) 10^3/ uL RBC 4.48 (4.1-5.3) 10^6/u L Hgb 12.5 (11.7-16.6) g/dL Hct 41.3 L (42.0-52.0) % MCV 92.2 (80-94) fL MCH 27.9 L (28.0-34.0) pg MCHC 30.3 (30.0-36.0) g/dL RDW 14.0 (12.1-15.1) % Plt Count 212 (130-400) 10^3/c mm MPV 11.0 H (7.4-10.4) fL Neut % (Auto) 59.9 % Lymph % (Auto) 25.6 % [place] % (Auto) 11.1 % Eos % (Auto) 2.3 % Baso % (Auto) 0.5 % Neut # (Auto) 4.9 (1.8-7.7) 10^3/u L Lymph # (Auto) 2.1 (0.8-4.8) 10^3/u L [place] # (Auto) 0.9 (0.2-0.9) 10^3/u L Eos # (Auto) 0.2 (0.0-0.8) 10^3/u L Baso # (Auto) 0.0 (0.0-0.1) 10^3/u L Nucleated RBC % (a uto) 0 % Nucleated RBCs # 0.0 /100WBC Sodium 143 (136-145) mmol/L Potassium 4.3 (3.5-5.1) mmol/L Chloride 108 H (98-107) mmol/L Carbon Dioxide 25 (22-29) mmol/L Anion Gap 14.3 (5-19) BUN 14 (6-20) mg/dL Creatinine 1.3 H (0.7-1.2) mg/dL GFR Calculation 60.2 L (90-130) mL/min Glucose 149 H (65-115) mg/dL Calculated Osmolal ity 295 (285-295) mOsm/k g Calcium 8.8 (8.5-10.5) mg/dL Total Bilirubin 0.3 (0.15-1.2) mg/dL AST 32 (0-40) U/L ALT 60 H (0-41) U/L Alkaline Phosphata se 69 (40-130) IU/L Troponin T Baselin e 7 (0-15) ng/mL Total Protein 6.9 (6.6-8.7) g/dL Albumin 4.2 (3.5-5.2) g/dL Globulin 2.7 (1.3-4.6) g/dL Salicylates < 0.3 L (3-10) mg/dL Acetaminophen < 5.0 L (10-30) ug/mL Ethyl Alcohol < 10 (0-10) mg/dL Imaging Data^: CXR: Attestation: I personally reviewed and interpreted this imaging study as follows: My impression: No acute abnormality EKG Data^: EKG 1: Attestation: I personally reviewed and interpreted this EKG as follows: EKG interpretation date: 03/17/20 EKG interpretation time: 18:46 Interpretation: nsr hr [address] or t wave abnormalities qrs 95 qtc 394 Discharge Plan Discharge Patient Disposition: Home, Self-Care Clinical Impression: Anxiety Chest pain Qualifiers: Chest pain type: unspecified Qualified Code(s): R07.9 - Chest pain, unspecified Condition: Stable Prescriptions: No Action albuterol sulfate [ProAir HFA] 90 mcg/actuation HFA aerosol inhaler 1 - 2 puff INHALATION Q6H PRNRF: 0 gabapentin 300 mg capsule 300 mg PO TID RF: 0 dextroamphetamine-amphetamine [Adderall] 20 mg tablet 20 mg PO .COMPLEX RF: 0 dextroamphetamine-amphetamine [Adderall] 30 mg tablet 30 mg PO .COMPLEX RF: 0 Viibryd 40 mg tablet 40 mg PO .COMPLEX RF: 0 mirtazapine [Remeron] 15 mg tablet 15 mg PO .COMPLEX RF: 0 dicyclomine 10 mg capsule 10 mg PO QID PRN (Reason: abdominal discomfort) 30 Days Qty: 60 RF: 2 ibuprofen 800 mg tablet 800 mg PO Q8H PRN (Reason: fever or pain) 30 Days Qty: 90 RF: 5 (DME) Thumb spica Qty: 1 RF: 0 canagliflozin 300 mg tablet 300 mg PO QAM 30 Days Qty: 30 RF: 2 Lantus Solostar U-100 Insulin 100 unit/mL (3 mL) insulin pen 10 unit SUBCUT DAILY 30 Days Qty: 3 RF: 2 (DME) Comfort EZ Pen [place] 32 gauge x 5/16 needle See Rx Instructions .ROUTE .MEDSUPPLY Qty: 100 RF: 11 metformin 500 mg tablet extended release 24 hr 500 mg PO QDAY 30 Days Qty: 30 RF: 2 metoprolol succinate 50 mg tablet extended release 24 hr 50 mg PO DAILY 30 Days Qty: 30 RF: 2 lisinopril 5 mg tablet 5 mg PO QDAY 30 Days Qty: 30 RF: 2 lovastatin 20 mg tablet 20 mg PO QDAY 30 Days Qty: 30 RF: 11 nicotine 21 mg/24 hr patch 24 hour 1 patch TRANSDERMA Q24H 14 Days Qty: 14 RF: 5 mupirocin 2 % ointment 1 applic TOPICAL TID 14 Days Qty: 30 RF: 2 cyclobenzaprine 10 mg tablet 10 mg PO TID PRN (Reason: muscle spasm) 30 Days Qty: 90 RF: 2 omeprazole 20 mg capsule,delayed release(DR/EC) See Rx Instructions .ROUTE .COMPLEX Qty: 30 RF: 0 Discharge Orders: Discharge Order (Routine); Ordered 03/17/20 Ordered By: Timothy Bello Referrals: Usha López MD [Primary Care Provider] - 4-7 days Discharge Diet: Advance as tolerated Discharge Activity: Resume usual activity Patient Instructions: Chest Pain (ED) Discharge Date/Time: 03/17/20 20:18 Coding Level of Care Code ED Customer Account Manager for Chg Fwd Exam Comprehensive
[2020-03-17 18:57] LABS: Alanine Aminotransferase 60 U/L (0-41); Albumin Level 4.2 g/dL (3.5-5.2); Alkaline Phosphatase 69 IU/L (40-130); Anion Gap 14.3 (5-19); Aspartate Amino Transferase 32 U/L (0-40); Blood Urea Nitrogen 14 mg/dL (6-20); Calcium 8.8 mg/dL (8.5-10.5); Carbon Dioxide 25 mmol/L (22-29); Chloride 108 mmol/L (98-107); Globulin 2.7 g/dL (1.3-4.6); Glomerular Filtration Rate 60.2 mL/min (90-130); Glucose 149 mg/dL (65-115); Osmolality Calculated 295 mOsm/kg (285-295); Potassium 4.3 mmol/L (3.5-5.1); Sodium 143 mmol/L (136-145); Total Bilirubin 0.3 mg/dL (0.15-1.2); Total Protein 6.9 g/dL (6.6-8.7)
--- NOTE | 2020-03-17 19:05 | PC.NURSE ---
REPORT RECEIVED FROM [facility] AND CARE TRANSFERRED TO [facility]
[2020-03-17 19:17] LABS: Acetaminophen < 5.0 ug/mL (10-30); Alcohol Level < 10 mg/dL (0-10); Salicylate < 0.3 mg/dL (3-10)
[2020-03-17 19:32] LABS: Troponin(5th) Baseline 7 ng/mL (0-15)
[2020-03-17 19:39] VITALS: BP 105/66; PULSE 64; RESP 16; O2SAT 99
[2020-03-17 20:17] VITALS: BP 112/73; PULSE 71; RESP 17; O2SAT 100
--- NOTE | 2020-03-17 20:33 | ECG_ITS ---
Measurements Intervals Eure Rate: 72 P: 40 AL: 170 QRS: 56 QRSD: 95 T: 25 QT: 369 QTc: 406 SINUS RHYTHM Compared to ECG 03/27/2018 21:36:20 Sinus tachycardia no longer present Electronically Signed On 03-17-2020 22:08:06 CDT by Andreea Harrell M.D. [id number]
== END 2020-03-17 20:18 | disposition home or self-care (01) ==
PROVIDERS: Emergency Provider Emergency Medicine; PCP Family Medicine
DX: F41.9 Anxiety disorder, unspecified (principal); R07.9 Chest pain, unspecified; Z79.84 Long term (current) use of oral hypoglycemic drugs; E78.5 Hyperlipidemia, unspecified; I10 Essential (primary) hypertension; E11.9 Type 2 diabetes mellitus without complications; F17.210 Nicotine dependence, cigarettes, uncomplicated; K21.9 Gastro-esophageal reflux disease without esophagitis; Z79.899 Other long term (current) drug therapy
CPT/HCPCS: 12345; 36415; 71045; 80053; 80307; 84484; 85025; 93005; 99283

== ENCOUNTER 2020-03-22 02:46 | Emergency (ER) | payer MEDICARE, MEDICAID, SELFPAY ==
[2020-03-22 02:47] VITALS: BP 127/70; PULSE 72; RESP 16; TEMP 36.6; O2SAT 97; BMI 27.3
--- NOTE | 2020-03-22 02:51 | CTR_ITS ---
PROCEDURE INFORMATION: Exam: CT Abdomen And Pelvis With Contrast Exam date and time: 03/22/2020 3:16 AM Age: 44 years old Clinical indication: Abdominal pain; Localized; Right lower quadrant (rlq); Prior surgery; Surgery date: 6+ months; Surgery type: Hernia; Additional info: Abdominal pain - rlq TECHNIQUE: Imaging protocol: Computed tomography of the abdomen and pelvis with intravenous contrast. Radiation optimization: All CT scans at this facility use at least one of these dose optimization techniques: automated exposure control; mA and/or kV adjustment per patient size (includes targeted exams where dose is matched to clinical indication); or iterative reconstruction. Contrast material: OMNI 300; Contrast volume: 95 ml; Contrast route: IV; COMPARISON: CT kidney stone [id number] 03/14/2020 11:03 PM RADIATION DOSE METRICS: Total DLP: 746.47 mGy-cm FINDINGS: Lungs: The lung bases are clear. Liver: Unremarkable. Gallbladder and bile ducts: No visible gallstones by CT. No biliary tree dilation. Pancreas: Unremarkable. Spleen: Unremarkable. Adrenals: Unremarkable. Kidneys and ureters: Unremarkable. Stomach and bowel: The stomach appears somewhat distended at the time of scanning. Please correlate clinically. There are no CT findings to strongly suggest diverticulitis. Appendix: The appendix is visualized and appears normal. Intraperitoneal space: No free air, ascites, or bowel distention. Vasculature: No evidence for abdominal aortic aneurysm. Lymph nodes: No retroperitoneal adenopathy. Bladder: Unremarkable as visualized. Reproductive: Essentially unremarkable for age. Bones/joints: Mild degenerative/arthritic changes in the lower lumbar spine, not significantly changed. Soft tissues: No significant acute finding. CT/CT abdomen pelvis w con* [id number] IMPRESSION: 1. Normal appendix. 2. Somewhat distended stomach. 3. No free air or bowel distention. 4. Other findings discussed above. Radiation Dose CTDIVOL = (mGy): DLP = 746.47 (mGy-cm)
[2020-03-22 03:03] LABS: Basophils # 0.1 10^3/uL (0.0-0.1); Basophils % 0.7 %; Eosinophils # 0.4 10^3/uL (0.0-0.8); Eosinophils % 5.4 %; Hematocrit 41.8 % (42.0-52.0); Hemoglobin 12.5 g/dL (11.7-16.6); Lymphocytes # 2.3 10^3/uL (0.8-4.8); Lymphocytes % 28.6 %; Mean Corpuscular HGB Conc 29.9 g/dL (30.0-36.0); Mean Corpuscular Hemoglobin 27.5 pg (28.0-34.0); Mean Corpuscular Volume 91.9 fL (80-94); Mean Platelet Volume 11.1 fL (7.4-10.4); Monocytes # 1.1 10^3/uL (0.2-0.9); Monocytes % 13.6 %; Neutrophils # 4.2 10^3/uL (1.8-7.7); Neutrophils % 51.2 %; Nucleated Red Blood Cells % 0 %; Platelet Count 208 10^3/cmm (130-400); Red Blood Count 4.55 10^6/uL (4.1-5.3); Red Cell Distribution Width 14.2 % (12.1-15.1); White Blood Count 8.2 10^3/uL (4.0-10.0)
[2020-03-22] MEDS: ondansetron 2 mg/ML SDV 2 mL 4 MG IVP (03:06)
[2020-03-22] MEDS: sodium chloride 0.9% 1,000 ML 100 ML IV (03:06)
[2020-03-22] MEDS: morphine 4 mg/mL SDV 1 mL IVP ×2 (03:06→04:57)
[2020-03-22 03:16] LABS: Alanine Aminotransferase 60 U/L (0-41); Alkaline Phosphatase 69 IU/L (40-130); Anion Gap 14.4 (5-19); Aspartate Amino Transferase 35 U/L (0-40); Blood Urea Nitrogen 14 mg/dL (6-20); Carbon Dioxide 24 mmol/L (22-29); Chloride 107 mmol/L (98-107); Globulin 2.7 g/dL (1.3-4.6); Glomerular Filtration Rate 60.2 mL/min (90-130); Glucose 173 mg/dL (65-115); Lipase 84 U/L (13-60); Osmolality Calculated 292 mOsm/kg (285-295); Potassium 4.4 mmol/L (3.5-5.1); Sodium 141 mmol/L (136-145); Total Bilirubin 0.2 mg/dL (0.15-1.2); Total Protein 6.7 g/dL (6.6-8.7)
[2020-03-22] MEDS: iohexol 300 mg/mL 100 mL Btl IV (03:17)
--- NOTE | 2020-03-22 04:03 | ED_ITS ---
HPI - Abdominal Pain General: Chief Complaint: Abdominal Pain Stated Complaint: ABDOMINAL PAIN Time Seen by Provider: 03/22/20 02:48 History of Present Illness: HPI narrative: Terry is a 44-year-old male who comes in complaining of right lower quadrant abdominal pain. Patient states the pains been going on since earlier in the evening. He said associated nausea but no vomiting. Denies any constipation, diarrhea, fever, chills, urinary symptoms or other complaints. Patient had similar pain in the past but denies pain is more severe. He is unaware of any exacerbating alleviating factors. Associated Symptoms: Denies chills, coffee ground emesis, constipation, GI cramping, diarrhea, dysuria, fever(s), heartburn, hematochezia, hematuria, hematemesis, melena, nausea, syncope and vomiting Review of Systems Const: Denies: fever(s), chills, body aches, fatigue, malaise or diaphoresis Eyes: Denies: change in vision, blurry vision, blind spots or photophobia ENMT: Denies: throat pain, odynophagia, hoarseness, swelling of lips/tongue, ear or mastoid pain, ear discharge, change in hearing or nasal discharge Card: Denies: chest pain, palpitations, irregular heart rhythm, edema, lightheadedness, syncope, pre-syncope, dyspnea on exertion or orthopnea Resp: Denies: dyspnea, productive cough, non-productive cough, wheezing, hemoptysis or chest congestion GI: Reports: abdominal pain; Denies: nausea, vomiting, hematemesis, coffee ground emesis, heartburn, diarrhea, constipation, GI cramping, hematochezia or melena : Denies: flank pain, dysuria, urinary frequency, urinary urgency or hematuria Musc: Denies: neck pain, back pain, extremity pain, extremity swelling, joint pain, joint swelling, joint redness, joint warmth or joint stiffness Skin/Breast: Denies: rash, pruritus, erythema, skin tenderness or jaundice Neuro: Denies: headache(s), numbness in extremities, weakness in extremities, sensory changes, lack of coordination, difficulty walking, dizziness, vertigo, confusion or Slurred speech present Nba/Lymph: Denies: easy bruising, easy bleeding, petechiae, purpura or enlarged lymph nodes All/Imm: Denies: urticaria, throat swelling, tongue swelling, facial swelling or acute wheezing PFSH ED PFSH: Medical History ADD (attention deficit disorder) Chronic pain syndrome GERD (gastroesophageal reflux disease) Hyperlipidemia Hypertension Irritable bowel syndrome Tobacco use Type 2 diabetes mellitus Social History Smoking and tobacco status: current every day smoker cigarettes and smokeless tobacco Quit status (tobacco): not considering quitting Second hand smoke exposure: Yes Smoking risk assessment/counseling performed?: No Alcohol intake: current Alcohol intake frequency: holidays/special occasions only Alcohol type: hard liquor Desire information about alcohol rehabilitation?: No Household members: spouse Current gender identity: Male Physical Exam Const: COMMON NORMALS: no acute distress, patient oriented x3, no limitations, healthy appearing and well nourished GENERAL APPEARANCE: cooperative, well kempt and well developed HENMT: COMMON NORMALS: normocephalic, atraumatic, hearing grossly normal bilaterally, external ears normal, EAC's normal, Normal external nose present and moist oral mucous membranes HEAD & SCALP: normocephalic and atraumatic NOSE: Normal external nose present and Normal nares present EXTERNAL EAR: Yes external ears normal EXTERNAL AUDITORY CANAL: EAC's normal MOUTH: Normal oral and palatal mucosa present, lip normal and tongue normal Eye: COMMON NORMALS: Equal, round and reactive pupils present, EOMs intact bilaterally, conjunctivae normal and no scleral icterus GENERAL EYE: appearance normal, both eyes and all related structures ALIGNMENT: Yes alignment normal PERIORBITAL: periorbital findings normal EYELID: eyelids normal CONJUNCTIVA: Yes conjunctivae normal SCLERA: sclerae normal PUPIL: Yes Equal, round and reactive pupils present Neck/C-Spine: COMMON NORMALS: full ROM, no lymphadenopathy, supple, no mening eal signs and no JVD GENERAL: Yes normal visual inspection and Yes trachea midline Chest: COMMONS NORMALS: normal inspection of the chest and normal palpation of entire chest wall Resp: COMMON NORMALS: normal respiratory effort, No retractions, No use of accessory muscles and clear to auscultation bilaterally EFFORT & INSPECTION: Yes able to speak in complete sentences and Yes symmetric chest movement AUSCULTATION: clear to auscultation bilaterally, no crackles, no rales, no rhonchi and no wheezes Cardio: COMMON NORMALS: no JVD, regular rate, regular rhythm, S1 normal heart sound present, S2 normal heart sound present, No gallops present (Cardio), No cl icks present (Cardio), No murmurs present (Cardio) and No rub (Cardio) RATE: regular rate RHYTHM: regular rhythm HEART SOUNDS: S1 normal heart sound present and S2 normal heart sound present GI: COMMON NORMALS: Soft to palpation and No hepatosplenomegaly present PALPATION: Yes Soft to palpation, Yes Tenderness to palpation present (GI) Details: RLQ, No Guarding due to palpation present (GI), No Rigid due to palpation, Yes No hepatosplenomegaly present, No Hernia present, No Palpable mass present and No Pulsatile mass present : COMMON NORMALS: Yes no CVA tenderness BLADDER/KIDNEY EXAM: Yes no CVA tenderness Back/Pelvis: COMMON NORMALS: no CVA tenderness, thoracic and lumbar spine normal to inspection, no thoracic nor lumbar tenderness and thoraco-lumbar ROM normal Extremity: COMMON NORMALS: normal to inspection, full ROM, capillary refill normal, no joint enlargement, no clubbing, cyanosis or edema and no calf tenderness Neuro: COMMON NORMALS: patient oriented x3, CN's II-XII intact bilaterally, moves all extremities, no focal motor deficits and no sensory deficits noted MENINGEAL SIGNS: Yes no meningeal signs SPEECH: speech normal Psych: COMMON NORMALS: mental status grossly normal, Normal thought process present, cooperative, normal affect, speech normal and activity/motor behavior normal APPEARANCE: Yes well kempt SPEECH: Yes normal speech THOUGHT PROCESS: Normal thought process present Skin: COMMON NORMALS: no rashes or lesions noted, turgor normal, no jaundice, no petechiae and no mottling GENERAL SKIN EXAM: no rashes or lesions noted and turgor normal Course Vital Signs: Vital signs: Vital Signs Temperature 97.9 F 03/22/20 02:47 Pulse Rate 72 03/22/20 02:47 Respiratory Rate 16 03/22/20 02:47 Blood Pressure 127/70 03/22/20 02:47 Pulse Oximetry 97 03/22/20 02:47 MDM - Abdominal Pain MDM Narrative: Medical decision making narrative: Chris is a 44-year-old male comes in complaining of right lower quadrant abdominal pain. Magali stated the pain started just yesterday but further history reveals she is had this pain off and on for several years. It is possible he has gastroparesis although he is not vomiting. His abdominal exam is benign there is no sign of peritonitis. CT scan shows a normal appendix and no other acute findings. Patient was to go home now as his ride is here but he does agree to return should his symptoms worsen he is aware that he could have developing appendicitis with this episode and agrees to return should he worsen. Lab Data: Attestation: I reviewed the patient's lab results. Labs: Lab Results 03/22/20 03/22/20 03/22/20 Range/Units 02:55 02:55 04:30 WBC 8.2 (4.0-10.0) 10^3/ uL RBC 4.55 (4.1-5.3) 10^6/u L Hgb 12.5 (11.7-16.6) g/dL Hct 41.8 L (42.0-52.0) % MCV 91.9 (80-94) fL MCH 27.5 L (28.0-34.0) pg MCHC 29.9 L (30.0-36.0) g/dL RDW 14.2 (12.1-15.1) % Plt Count 208 (130-400) 10^3/c mm MPV 11.1 H (7.4-10.4) fL Neut % (Auto) 51.2 % Lymph % (Auto) 28.6 % [place] % (Auto) 13.6 % Eos % (Auto) 5.4 % Baso % (Auto) 0.7 % Neut # (Auto) 4.2 (1.8-7.7) 10^3/u L Lymph # (Auto) 2.3 (0.8-4.8) 10^3/u L [place] # (Auto) 1.1 H (0.2-0.9) 10^3/u L Eos # (Auto) 0.4 (0.0-0.8) 10^3/u L Baso # (Auto) 0.1 (0.0-0.1) 10^3/u L Nucleated RBC % (a uto) 0 % Nucleated RBCs # 0.0 /100WBC Sodium 141 (136-145) mmol/L Potassium 4.4 (3.5-5.1) mmol/L Chloride 107 (98-107) mmol/L Carbon Dioxide 24 (22-29) mmol/L Anion Gap 14.4 (5-19) BUN 14 (6-20) mg/dL Creatinine 1.3 H (0.7-1.2) mg/dL GFR Calculation 60.2 L (90-130) mL/min Glucose 173 H (65-115) mg/dL Calculated Osmolal ity 292 (285-295) mOsm/k g Calcium 9.0 (8.5-10.5) mg/dL Total Bilirubin 0.2 (0.15-1.2) mg/dL AST 35 (0-40) U/L ALT 60 H (0-41) U/L Alkaline Phosphata se 69 (40-130) IU/L Total Protein 6.7 (6.6-8.7) g/dL Albumin 4.0 (3.5-5.2) g/dL Globulin 2.7 (1.3-4.6) g/dL Lipase 84 H (13-60) U/L Urine Color Straw (Yellow) Urine Appearance Clear (CLEAR) Urine pH 6 (5-7) Ur Specific Gravit y 1.005 (1.005-1.030) Urine Protein Neg (Negative) Urine Glucose (UA) 4+ H (Normal) Urine Ketones Negative (Negative) Urine Blood Neg (Negative) Urine Nitrate Negative (Negative) Urine Bilirubin Neg (NEGATIVE) Urine Urobilinogen Norm (Negative) mg/dL Ur Leukocyte Carmen ase Negative (Negative) Urine RBC None (0-2) /hpf Urine WBC Rare (0-5) /hpf Ur Squamous Epith Cells None (0-5) Urine Bacteria None (NONE) Imaging Data ^: CT Abd/Pel: Radiologist's impression: [address] [place] [address] CT Scan Report Signed Patient: Chris Junior Unit #: [id number] : [id number] Age/Sex: 44 / M ADM Date: 03/22/20 Loc: ER Room/Bed: Attending Dr: Ordering Provider/Ordering MD: Jaylene Magana DO Date of Service: 03/22/20 Procedure(s): CT abdomen pelvis w con* [id number] Accession Number(s): [id number] Report Number: [id number] PROCEDURE INFORMATION: Exam: CT Abdomen And Pelvis With Contrast Exam date and time: 03/22/2020 3:16 AM Age: 44 years old Clinical indication: Abdominal pain; Localized; Right lower quadrant (rlq); Prior surgery; Surgery date: 6+ months; Surgery type: Hernia; Additional info: Abdominal pain - rlq TECHNIQUE: Imaging protocol: Computed tomography of the abdomen and pelvis with intravenous contrast. Radiation optimization: All CT scans at this facility use at least one of these dose optimization techniques: automated exposure control; mA and/or kV adjustment per patient size (includes targeted exams where dose is matched to clinical indication); or iterative reconstruction. Contrast material: OMNI 300; Contrast volume: 95 ml; Contrast route: IV; COMPARISON: CT kidney stone [id number] 03/14/2020 11:03 PM RADIATION DOSE METRICS: Total DLP: 746.47 mGy-cm FINDINGS: Lungs: The lung bases are clear. Liver: Unremarkable. Gallbladder and bile ducts: No visible gallstones by CT. No biliary tree dilation. Pancreas: Unremarkable. Spleen: Unremarkable. Adrenals: Unremarkable. Kidneys and ureters: Unremarkable. Stomach and bowel: The stomach appears somewhat distended at the time of scanning. Please correlate clinically. There are no CT findings to strongly suggest diverticulitis. Appendix: The appendix is visualized and appears normal. Intraperitoneal space: No free air, ascites, or bowel distention. Vasculature: No evidence for abdominal aortic aneurysm. Lymph nodes: No retroperitoneal adenopathy. Bladder: Unremarkable as visualized. Reproductive: Essentially unremarkable for age. Bones/joints: Mild degenerative/arthritic changes in the lower lumbar spine, not significantly changed. Soft tissues: No significant acute finding. CT/CT abdomen pelvis w con* [id number] IMPRESSION: 1. Normal appendix. 2. Somewhat distended stomach. 3. No free air or bowel distention. 4. Other findings discussed above. Radiation Dose CTDIVOL = (mGy): DLP = 746.47 (mGy-cm) Dictated By: Raman Salazar MD Signed By: Raman Salazar MD Signed Date/Time: 03/22/20346 DD/ 5 Discharge Plan Discharge Patient Disposition: Home, Self-Care Clinical Impression: Abdominal pain Qualifiers: Abdominal location: right lower quadrant Qualified Code(s): R10.31 - Right lower quadrant pain Condition: Stable Prescriptions: No Action albuterol sulfate [ProAir HFA] 90 mcg/actuation HFA aerosol inhaler 1 - 2 puff INHALATION Q6H PRNRF: 0 gabapentin 300 mg capsule 300 mg PO TID RF: 0 dextroamphetamine-amphetamine [Adderall] 20 mg tablet 20 mg PO .COMPLEX RF: 0 dextroamphetamine-amphetamine [Adderall] 30 mg tablet 30 mg PO .COMPLEX RF: 0 Viibryd 40 mg tablet 40 mg PO .COMPLEX RF: 0 mirtazapine [Remeron] 15 mg tablet 15 mg PO .COMPLEX RF: 0 dicyclomine 10 mg capsule 10 mg PO QID PRN (Reason: abdominal discomfort) 30 Days Qty: 60 RF: 2 ibuprofen 800 mg tablet 800 mg PO Q8H PRN (Reason: fever or pain) 30 Days Qty: 90 RF: 5 (DME) Thumb spica Qty: 1 RF: 0 canagliflozin 300 mg tablet 300 mg PO QAM 30 Days Qty: 30 RF: 2 Lantus Solostar U-100 Insulin 100 unit/mL (3 mL) insulin pen 10 unit SUBCUT DAILY 30 Days Qty: 3 RF: 2 (DME) Comfort EZ Pen Tolar 32 gauge x 5/16 needle See Rx Instructions .ROUTE .MEDSUPPLY Qty: 100 RF: 11 metformin 500 mg tablet extended release 24 hr 500 mg PO QDAY 30 Days Qty: 30 RF: 2 metoprolol succinate 50 mg tablet extended release 24 hr 50 mg PO DAILY 30 Days Qty: 30 RF: 2 lisinopril 5 mg tablet 5 mg PO QDAY 30 Days Qty: 30 RF: 2 lovastatin 20 mg tablet 20 mg PO QDAY 30 Days Qty: 30 RF: 11 nicotine 21 mg/24 hr patch 24 hour 1 patch TRANSDERMA Q24H 14 Days Qty: 14 RF: 5 mupirocin 2 % ointment 1 applic TOPICAL TID 14 Days Qty: 30 RF: 2 cyclobenzaprine 10 mg tablet 10 mg PO TID PRN (Reason: muscle spasm) 30 Days Qty: 90 RF: 2 omeprazole 20 mg capsule,delayed release(DR/EC) See Rx Instructions .ROUTE .COMPLEX Qty: 30 RF: 0 Discharge Orders: Discharge Order (Routine); Ordered 03/22/20 Ordered By: Jaylene Magana Referrals: Usha López MD [Primary Care Provider] - 1-3 days Discharge Diet: Advance as tolerated Discharge Activity: Increase activity as tolerated Patient Instructions: Abdominal Pain (ED) Activity Restrictions/Additional Instructions: Please return to the ER immediately for any of the signs or symptoms listed on your discharge instruction sheets, worsening/changing of your symptoms, you are not getting better as quickly as expected, or for ANY other cause or concerns. Developing appendicitis could still be a cause of your pain so if your symptoms worsen, you develop a fever, you began to vomit, or you have any other concerns please return to the ER immediately for recheck. If your pain continues for more than another 12 hours return to the ER for recheck. Discharge Date/Time: 03/22/20 05:23 Coding Level of Care Code ED [employer] for [employer] Fwd Exam Comprehensive
[2020-03-22] MEDS: metoclopramide 5 mg/mL SDV 2 mL 10 MG IV (04:29)
[2020-03-22 05:20] LABS: Bilirubin Urine Neg (NEGATIVE); Blood Urine Neg (Negative); Glucose Urine UA 4+ (Normal); Ketones Urine Negative (Negative); Leukocyte Esterase Urine Negative (Negative); Nitrate Urine Negative (Negative); Protein Urine Neg (Negative); Specific Gravity, Urine 1.005 (1.005-1.030); Urine Appearance Clear (CLEAR); Urine Color Straw (Yellow); Urobilinogen Urine Norm (Negative); pH Urine 6 (5-7)
[2020-03-22 05:21] LABS: WBC Urine RARE /hpf (0-5)
[2020-03-22 05:22] LABS: Add Urine Culture? No
== END 2020-03-22 05:23 | disposition home or self-care (01) ==
PROVIDERS: Emergency Provider Emergency Medicine; PCP Family Medicine
DX: R10.31 Right lower quadrant pain (principal); Z79.4 Long term (current) use of insulin; E78.5 Hyperlipidemia, unspecified; I10 Essential (primary) hypertension; E11.9 Type 2 diabetes mellitus without complications; F17.210 Nicotine dependence, cigarettes, uncomplicated
CPT/HCPCS: 12345; 74177; 80053; 81001; 83690; 85025; 96361; 96374; 96375; 96376; 99281; 99283; J2270; J2405; J2765; J7030; Q9967

== ENCOUNTER → 2020-05-06 09:17 | Outpatient (BNVA) | payer MEDICARE, MEDICAID, SELFPAY | PROVIDERS: PCP Family Medicine; Visit Provider Specialist | DX: Z01.812 Encounter for preprocedural laboratory examination (principal) | CPT/HCPCS: 87635 ==

== ENCOUNTER 2020-05-08 06:30 | Day surgery (SDC) | payer MEDICARE, MEDICAID, SELFPAY ==
[2020-05-08 06:51] VITALS: BP 111/73; PULSE 98; RESP 18; TEMP 36.2; O2SAT 97
--- NOTE | 2020-05-08 06:58 | P.ANESASSM_ITS ---
Pre-Anesthetic Assessment Pre-Anesthetic Assessment: Height/Weight: Height 1.73 m Weight 87.997 kg Temp Pulse Resp BP Pulse Ox 97.2 F L 98 18 111/73 97 05/08/20 06:51 05/08/20 06:51 05/08/20 06:51 05/08/20 06:51 05/08/20 06:51 Preop Diagnosis: Left carpal tunnel syndrome Proposed Procedure: Operation Date: 05/08/20 08:10 Proposed Procedures p Carpal Tunnel Release left [id number] G56.00(Left) - Reyna Coy MD s left thumb trigger finger releaese(Left) - Reyna Coy MD Was Beta Gucci taken within 24 hours: N/A Last intake: Intake Last Liquid Date 05/07/20 Last Liquid Time 19:00 Last Solid Date 05/07/20 Last Solid Time 19:00 Exam: Pre-Anes Outpt Exam: alert, oriented x 3, clear to auscultation bilaterally and regular rate & rhythm Additional Exam Findings (including area of procedure): Pt demonstrates some cognitive impairment with short term memory issues; he repeats questios and information. Airway: Submandibular: WNL Cervical ROM: WNL MP: 2 Dentition: Chipped Additional comments: Profound terminal dental and periodontal disease Pulmonary: Pulmonary: COPD, Cough and SOB CV/HEM: CV/HEM: Angina (Stable) and HTN Hepatic: Hepatic: None reported GI: GI: GERD Metabolic: Metabolic: DM Musc/skel: Musc/skel: None reported Neuropsych: Neuropsych: Dementia Anesthetic Plan: ASA status: 3 Anesthesia: MAC Risk of > 500 ml blood loss (7ml/kg in children): No PFSH Anesthesia PFSH: Medical History (Updated 05/07/20 @ 08:59 by Loreta Jeffries) ADD (attention deficit disorder) Chronic pain syndrome GERD (gastroesophageal reflux disease) Hyperlipidemia Hypertension Irritable bowel syndrome Tobacco use Type 2 diabetes mellitus Family History Family/Other Dementia Social History Smoking and tobacco status: current every day smoker cigarettes and smokeless tobacco Quit status (tobacco): not considering quitting Second hand smoke exposure: Yes Smoking risk assessment/counseling performed?: No Alcohol intake: current Alcohol intake frequency: holidays/special occasions on ly Alcohol type: hard liquor Desire information about alcohol rehabilitation?: No Household members: spouse Current gender identity: Male Data Anesthesia Cardiac Studies: No Data to Display
--- NOTE | 2020-05-08 07:06 | P.HPUD_ITS ---
Surgery/Procedure H&P Update DATE OF PROCEDURE: May 08, 2020 DATE H&P PERFORMED: 04/13/20 H&P UPDATE INFORMATION: I have reviewed H&P completed within last 30 days, I have examined patient prior to procedure and H&P is in [facility] EMR on date indicated PREOP DIAGNOSIS: Left carpal tunnel syndrome and thumb triggering PLANNED PROCEDURE: Operation Date: 05/08/20 08:10 Proposed Procedures p Carpal Tunnel Release left [id number] G56.00(Left) - Reyna Coy MD s left thumb trigger finger releaese(Left) - Reyna Coy MD
[2020-05-08 07:17] LABS: Glucose Point of Care 127 mg/dL (70-110)
[2020-05-08] MEDS: sodium chloride 0.9% 1,000 ML 30 ML IV (07:18)
[2020-05-08 09:39] VITALS: BP 86/62; PULSE 85; RESP 16; TEMP 36.4; O2SAT 97
--- NOTE | 2020-05-08 10:01 | P.OP_ITS ---
Operative Report Date of procedure: May 08, 2020 Pre-op Diagnosis: Left carpal tunnel syndrome and thumb triggering Post-op diagnosis: same Post-op Findings: Significant compression across the carpal canal with inflammation of the A1 nikhil at the base of the thumb Procedure Done: Left carpal tunnel release and release left trigger thumb Specimens removed/disposition: None Pathology: none sent Surgeon: Reyna Coy Branch Mechanic: None Anesthesia: MAC (With [place] block) Estimated blood loss (mL): 3 Tourniquet time (min): 52 IV fluids (mL): 600 Urine output (mL): 0 Complications: None Findings: Compression across the carpal canal with inflammation of the A1 nikhil of the thumb. Condition: stable Disposition: same day Brief History: This 44-year-old gentleman presented with complaints consistent with left carpal tunnel syndrome as well as triggering of the patient's left thumb. Patient wished to proceed with carpal tunnel release and trigger thumb. Risks and complications were discussed and the patient understood and agreed to the surgical procedure. Procedure: The patient was brought to the operating theater. The patient had a [place] block with MAC. The tourniquet was elevated to 250 mmHg for a total tourniquet time of 52 minutes. The arm was then prepped and draped with DuraPrep in usual fashion with the arm draped free. A surgical pause was performed. At the time, the surgical pause, we confirmed the site and side of surgery. We also confirmed the patient's identity, planned surgical procedure and preoperative surgical markings. An incision was then made along the thenar crease. The incision crossed the wrist joint in a curvilinear fashion. Dissection continued through skin and soft tissues using a scalpel. The palmaris longus was identified along with the transverse carpal ligament. Each of these was released carefully to avoid injury to the median nerve. We were able to dissect gently into the carpal canal which was noted to be quite tight with significant compression across the median nerve. The nerve was visualized and was an hourglass shape. The canal was subsequently palpated to assure there was no bony encroachment upon the canal. There was a quite thickened fibrous tissue within the canal, and this was opened longitudinally as well. The canal was then palpated distally and proximally to assure that my small finger was passed easily without impingement. Finding this to be so, attention was directed to closure. The wound was irrigated with ropivacaine plain. It was then closed with 3-0 nylon in an interrupted mattress fashion. An incision was then made along the metacarpal phalangeal crease of the thumb. Dissection continued through the skin to the subcutaneous tissues using a scalpel. Blunt dissection was then utilized to spread soft tissues and allow access to the A1 nikhil. The A1 nikhil was identified. It was then incised longitudinally and sharply using a knife. This was accomplished without difficulty and atraumatically. Once the A1 nikhil was released, tendons were brought up out of the wound and evaluated. There were no gross masses on the tendons. Tendons were returned to normal position. We then irrigated the wound and subsequently closed it with 3-0 nylon with an interrupted mattress type suture. Following closure of the wound, the wound was injected with local anesthetic into the subcutaneous tissues as a local anesthetic. Sterile dressing was then placed consisting of Exofin, Telfa, Tegaderm, fluffed fluffs, sterile soft roll, a volar splint, and an Jake wrap. The tourniquet was released after 48 minutes. There were no complications. There were no specimens. The procedure was well tolerated. Plan is the patient will be discharged home. Associated Problem List Diagnoses (1) Carpal tunnel syndrome: Qualifiers: Laterality: left Qualified Code(s): G56.02 - Carpal tunnel syndrome, left upper limb (2) Trigger finger of left thumb:
[2020-05-08 10:10] VITALS: BP 130/84; PULSE 83; RESP 18; TEMP 36.3; O2SAT 95
--- NOTE | 2020-05-08 10:44 | SUR.PHASEII ---
PATIENT WAS STILL SEDATED AFTER BEING IN PHASE II RECOVERY FOR APPROX 45 MINUTES AFTER A MAC ANESTHESIA. THIS NURSE REPEATEDLY TRIED TO AROUSE THE PATIENT. ASSESSED THE PATIENT AND ORDERED 0.08MG OF NARCAN IV. THIS NURSE PULLED THE MEDICATION FROM THE [facility] AND WAS PREPARING TO GIVE IT WHEN THE PATIENT WOKE UP. THE NARCAN WAS RETURNED TO THE [facility].
== END 2020-05-08 11:17 | disposition home or self-care (01) ==
PROVIDERS: PCP Family Medicine; Visit Provider Specialist
PROC: (CPT 64721; principal; 2020-05-08 08:10)
PROC: (CPT 26055; 2020-05-08 08:10)
DX: G56.02 Carpal tunnel syndrome, left upper limb (principal); M65.312 Trigger thumb, left thumb; I10 Essential (primary) hypertension; E11.9 Type 2 diabetes mellitus without complications; Z79.4 Long term (current) use of insulin; F17.210 Nicotine dependence, cigarettes, uncomplicated; J44.9 Chronic obstructive pulmonary disease, unspecified; F03.90 Unspecified dementia, unspecified severity, without behavioral disturbance, psychotic disturbance, mood disturbance, and anxiety
CPT/HCPCS: 64721; 12345; 36416; 82962; J2250; J2704; J3010; J3490; J7030

== ENCOUNTER 2020-05-09 20:17 | Inpatient (IN) | payer MEDICARE, MEDICAID, SELFPAY ==
[2020-05-09] VITALS (7 sets, daily range): BP systolic 100–116; BP diastolic 59–76; PULSE 115–126; RESP 14–28; TEMP 37–37.1; O2SAT 90–98; BMI 34.4
--- NOTE | 2020-05-09 20:28 | W.ED.AMS ---
HPI - Altered Mental Status General: Chief Complaint: Altered Mental Status Stated Complaint: NOT ACTING APPROPRIATELY Time Seen by Provider: 05/09/20 20:26 History of Present Illness: HPI narrative: 44 yo male is emergency room with altered mental status. He had a carpal tunnel done yesterday his called and stated he had done some heavy drinking last night evidently they had just gotten yesterday. He has Xanax Klonopin and oxycodone on his medicine list he states he took all of them today he took only 2 tablets of oxycodone he says. He is poorly responsive in the exam room and takes pain. Physical stimuli to get him aroused. His sats are varying and at times are down into the upper 80s. Review of Systems General: Reports: ROS unobtainable due to medical condition and ROS unobtainable due to mental status PFSH ED PFSH: Medical History ADD (attention deficit disorder) Chronic pain syndrome GERD (gastroesophageal reflux disease) Hyperlipidemia Hypertension Irritable bowel syndrome Tobacco use Type 2 diabetes mellitus Surgical History H/O neck surgery H/O wrist surgery R History of back surgery History of carpal tunnel surgery L Family History Family/Other No problems noted. Other Adopted Social History Smoking and tobacco status: current every day smoker cigarettes Packs smoked per day: 0.5 [ Other cigarette details: Says has been cutting down ] and smokeless tobacco Quit status (tobacco): considering quitting Second hand smoke exposure: Yes Smoking risk assessment/counseling performed?: No Alcohol intake: current Alcohol intake frequency: holidays/special occasions only Alcohol type: hard liquor Desire information about alcohol rehabilitation?: No Lives independently: Yes Household members: spouse Marital status: Current occupational status: unemployed Current gender identity: Male Physical Exam Const: COMMON NORMALS: no acute distress GENERAL APPEARANCE: cooperative and comfortable ORIENTATION/CONSCIOUSNESS: Yes awake, Yes oriented to person, Yes oriented to place and Yes oriented to time HENMT: COMMON NORMALS: normocephalic, atraumatic, hearing grossly normal bilaterally and oropharynx normal HEAD & SCALP: normocephalic and atraumatic Eye: COMMON NORMALS: Equal, round and reactive pupils present, EOMs intact bilaterally, conjunctivae normal and no scleral icterus CONJUNCTIVA: Yes conjunctivae normal PUPIL: Yes Equal, round and reactive pupils present Neck/C-Spine: COMMON NORMALS: full ROM, no lymphadenopathy, supple and no JVD Lymph: LYMPHATIC: no lymphadenopathy noted and no lymphedema noted Resp: COMMON NORMALS: normal respiratory effort, No retractions, No use of accessory muscles and clear to auscultation bilaterally AUSCULTATION: clear to auscultation bilaterally Cardio: COMMON NORMALS: no JVD, regular rate, regular rhythm and No murmurs present (Cardio) RATE: regular rate RHYTHM: regular rhythm GI: COMMON NORMALS: Soft to palpation and No hepatosplenomegaly present AUSCULTATION: Yes normoactive bowel sounds PALPATION: Yes Soft to palpation, No Tenderness to palpation present (GI), No Guarding due to palpation present (GI) and Yes No hepatosplenomegaly present Extremity: COMMON NORMALS: normal to inspection, capillary refill normal, no clubbing, cyanosis or edema, no calf tenderness and no pedal edema Neuro: SENSORIUM/ORIENTATION: Yes oriented to person, Yes oriented to place and Yes oriented to time Skin: COMMON NORMALS: no rashes or lesions noted GENERAL SKIN EXAM: no rashes or lesions noted Course Vital Signs: Vital signs: Vital Signs Temperature 98.3 F 05/11/20 05:24 Pulse Rate 106 H 05/11/20 05:24 Respiratory Rate 20 H 05/11/20 05:24 Blood Pressure 118/69 05/11/20 05:24 Pulse Oximetry 95 05/11/20 05:24 MDM - Altered Mental Status MDM Narrative: Medical decision making narrative: Patient in acute hypercapnic respiratory failure. He was started on BiPAP and it does show significant improvement. He also has acute kidney injury with significant elevation of his creatinine. We will go ahead and admit the patient and continue BiPAP continue IV fluids hold renal toxic medications including metformin lisinopril and ibuprofen. Discussed with hospitalist. Lab Data: Labs: Lab Results 05/09/20 05/09/20 05/09/20 Range/Units 21:10 21:13 21:13 WBC 11.8 H (4.0-10.0) 10^3/ uL RBC 4.42 (4.1-5.3) 10^6/u L Hgb 12.3 (11.7-16.6) g/dL Hct 42.1 (42.0-52.0) % MCV 95.2 H (80-94) fL MCH 27.8 L (28.0-34.0) pg MCHC 29.2 L (30.0-36.0) g/dL RDW 14.6 (12.1-15.1) % Plt Count 188 (130-400) 10^3/c mm MPV 10.6 H (7.4-10.4) fL Neut % (Auto) 74.8 % Lymph % (Auto) 10.7 % Ashley % (Auto) 12.2 % Eos % (Auto) 1.7 % Baso % (Auto) 0.3 % Neut # (Auto) 8.83 H (1.8-7.7) 10^3/u L Lymph # (Auto) 1.3 (0.8-4.8) 10^3/u L Ashley # (Auto) 1.4 H (0.2-0.9) 10^3/u L Eos # (Auto) 0.2 (0.0-0.8) 10^3/u L Baso # (Auto) 0.0 (0.0-0.1) 10^3/u L Nucleated RBC % (a uto) 0 % Nucleated RBCs # 0.0 /100WBC PT (10.5-13.3) SECO NDS INR (0.8-1.2) APTT (23.9-36.7) SECO NDS Specimen Type Arterial Sample Site Radial, right ABG pH 7.24 L (7.35-7.45) ABG pCO2 51.8 H (35-45) mmHg ABG pO2 86.9 (80.0-100.0) mmH g ABG HCO3 22.3 (22-26) mmol/L ABG O2 Saturation 97.3 ABG Base Excess -5.4 L (-2.0-2.0) mmol/ L Jatinder Test Pos A-a O2 Gradient 0.0 L (5-10) mmHg Hematocrit 40.2 L (42-52) % Hgb O2 Saturation 94.5 L (95-100) % Carboxyhemoglobin 1.8 (0.4-20.1) %THgb Methemoglobin 1.1 (0.4-1.5) % Total Hemoglobin 13.1 L (14-18) g/dL Sodium 140.0 137 (131-143) mmol/L Potassium 4.9 5.0 (3.5-5.0) mmol/L Glucose 253.0 H 248 H (70-115) mg/dL Ionized Calcium 1.3 (1.1-1.4) mmol/L O2 Delivery Device Nc O2 Liters/Min 4.0 % FiO2 % Marine Steward ID ellpe Chloride 103 (98-107) mmol/L Carbon Dioxide 22 (22-29) mmol/L Anion Gap 17.0 (5-19) BUN 35 H (6-20) mg/dL Creatinine 5.0 H (0.7-1.2) mg/dL GFR Calculation 12.7 L (90-130) mL/min Calculated Osmolal ity 290 (285-295) mOsm/k g Lactic Acid (0.5-2.2) mmol/L Calcium 9.0 (8.5-10.5) mg/dL Total Bilirubin 0.4 (0.15-1.2) mg/dL AST 81 H (0-40) U/L ALT 78 H (0-41) U/L Alkaline Phosphata se 78 (40-130) IU/L Creatine Kinase CK-MB (CK-2) (0-10.4) ng/mL CK-MB (CK-2) Rel I ndex (0.0-5.3) % Total Protein 7.4 (6.6-8.7) g/dL Albumin 4.1 (3.5-5.2) g/dL Globulin 3.3 (1.3-4.6) g/dL Lipase (13-60) U/L Urine Color (Yellow) Urine Appearance (CLEAR) Urine pH (5-7) Ur Specific Gravit y (1.005-1.030) Urine Protein (Negative) Urine Glucose (UA) (Normal) Urine Ketones (Negative) Urine Blood (Negative) Urine Nitrate (Negative) Urine Bilirubin (NEGATIVE) Urine Urobilinogen (Negative) mg/dL Ur Leukocyte Carmen ase (Negative) Urine RBC (0-2) /hpf Urine WBC (0-5) /hpf Ur Squamous Epith Cells (0-5) Calcium Oxalate Cr ystal /hpf Amorphous Sediment Urine Bacteria (NONE) Hyaline Casts Coarse Granular Ca sts /lpf Other Casts /lpf Urine Mucus Ur Random Sodium mmol/L Urine Creatinine (39-259) mg/dL Urine Opiates Scre en (Negative) ng/mL Ur Barbiturates Sc reen (Negative) ng/mL Ur Phencyclidine S crn (Negative) ng/mL Ur Amphetamines Sc reen (Negative) ng/mL U Benzodiazepines Scrn (Negative) ng/mL Urine Cocaine Scre en (Negative) ng/mL U Marijuana (THC) Screen (Negative) ng/mL Ethyl Alcohol < 10 (0-10) mg/dL Hepatitis A IgM Ab (Nonreactive) Hep Bs Antigen (Nonreactive) Hep B Core IgM Ab (Nonreactive) Hepatitis C Antibo dy (Nonreactive) 05/09/20 05/09/20 05/09/20 Range/Units 21:13 21:13 21:13 WBC (4.0-10.0) 10^3/ uL RBC (4.1-5.3) 10^6/u L Hgb (11.7-16.6) g/dL Hct (42.0-52.0) % MCV (80-94) fL MCH (28.0-34.0) pg MCHC (30.0-36.0) g/dL RDW (12.1-15.1) % Plt Count (130-400) 10^3/c mm MPV (7.4-10.4) fL Neut % (Auto) % Lymph % (Auto) % Ashley % (Auto) % Eos % (Auto) % Baso % (Auto) % Neut # (Auto) (1.8-7.7) 10^3/u L Lymph # (Auto) (0.8-4.8) 10^3/u L Ashley # (Auto) (0.2-0.9) 10^3/u L Eos # (Auto) (0.0-0.8) 10^3/u L Baso # (Auto) (0.0-0.1) 10^3/u L Nucleated RBC % (a uto) % Nucleated RBCs # /100WBC PT 13.30 (10.5-13.3) SECO NDS INR 0.98 (0.8-1.2) APTT 25.1 (23.9-36.7) SECO NDS Specimen Type Sample Site ABG pH (7.35-7.45) ABG pCO2 (35-45) mmHg ABG pO2 (80.0-100.0) mmH g ABG HCO3 (22-26) mmol/L ABG O2 Saturation ABG Base Excess (-2.0-2.0) mmol/ L Jatinder Test A-a O2 Gradient (5-10) mmHg Hematocrit (42-52) % Hgb O2 Saturation (95-100) % Carboxyhemoglobin (0.4-20.1) %THgb Methemoglobin (0.4-1.5) % Total Hemoglobin (14-18) g/dL Sodium (131-143) mmol/L Potassium (3.5-5.0) mmol/L Glucose (70-115) mg/dL Ionized Calcium (1.1-1.4) mmol/L O2 Delivery Device O2 Liters/Min % FiO2 % Marine Steward ID Chloride (98-107) mmol/L Carbon Dioxide (22-29) mmol/L Anion Gap (5-19) BUN (6-20) mg/dL Creatinine (0.7-1.2) mg/dL GFR Calculation (90-130) mL/min Calculated Osmolal ity (285-295) mOsm/k g Lactic Acid 1.6 (0.5-2.2) mmol/L Calcium (8.5-10.5) mg/dL Total Bilirubin (0.15-1.2) mg/dL AST (0-40) U/L ALT (0-41) U/L Alkaline Phosphata se (40-130) IU/L Creatine Kinase CK-MB (CK-2) (0-10.4) ng/mL CK-MB (CK-2) Rel I ndex (0.0-5.3) % Total Protein (6.6-8.7) g/dL Albumin (3.5-5.2) g/dL Globulin (1.3-4.6) g/dL Lipase 67 H (13-60) U/L Urine Color (Yellow) Urine Appearance (CLEAR) Urine pH (5-7) Ur Specific Gravit y (1.005-1.030) Urine Protein (Negative) Urine Glucose (UA) (Normal) Urine Ketones (Negative) Urine Blood (Negative) Urine Nitrate (Negative) Urine Bilirubin (NEGATIVE) Urine Urobilinogen (Negative) mg/dL Ur Leukocyte Carmen ase (Negative) Urine RBC (0-2) /hpf Urine WBC (0-5) /hpf Ur Squamous Epith Cells (0-5) Calcium Oxalate Cr ystal /hpf Amorphous Sediment Urine Bacteria (NONE) Hyaline Casts Coarse Granular Ca sts /lpf Other Casts /lpf Urine Mucus Ur Random Sodium mmol/L Urine Creatinine (39-259) mg/dL Urine Opiates Scre en (Negative) ng/mL Ur Barbiturates Sc reen (Negative) ng/mL Ur Phencyclidine S crn (Negative) ng/mL Ur Amphetamines Sc reen (Negative) ng/mL U Benzodiazepines Scrn (Negative) ng/mL Urine Cocaine Scre en (Negative) ng/mL U Marijuana (THC) Screen (Negative) ng/mL Ethyl Alcohol (0-10) mg/dL Hepatitis A IgM Ab (Nonreactive) Hep Bs Antigen (Nonreactive) Hep B Core IgM Ab (Nonreactive) Hepatitis C Antibo dy (Nonreactive) 05/09/20 05/09/20 05/09/20 Range/Units 21:13 21:13 21:50 WBC (4.0-10.0) 10^3/ uL RBC (4.1-5.3) 10^6/u L Hgb (11.7-16.6) g/dL Hct (42.0-52.0) % MCV (80-94) fL MCH (28.0-34.0) pg MCHC (30.0-36.0) g/dL RDW (12.1-15.1) % Plt Count (130-400) 10^3/c mm MPV (7.4-10.4) fL Neut % (Auto) % Lymph % (Auto) % Ashley % (Auto) % Eos % (Auto) % Baso % (Auto) % Neut # (Auto) (1.8-7.7) 10^3/u L Lymph # (Auto) (0.8-4.8) 10^3/u L Ashley # (Auto) (0.2-0.9) 10^3/u L Eos # (Auto) (0.0-0.8) 10^3/u L Baso # (Auto) (0.0-0.1) 10^3/u L Nucleated RBC % (a uto) % Nucleated RBCs # /100WBC PT (10.5-13.3) SECO NDS INR (0.8-1.2) APTT (23.9-36.7) SECO NDS Specimen Type Arterial Sample Site Radial, right ABG pH 7.23 L (7.35-7.45) ABG pCO2 54.6 H (35-45) mmHg ABG pO2 94.8 (80.0-100.0) mmH g ABG HCO3 22.6 (22-26) mmol/L ABG O2 Saturation 97.5 ABG Base Excess -5.5 L (-2.0-2.0) mmol/ L Jatinder Test Pos A-a O2 Gradient 50.7 H (5-10) mmHg Hematocrit 40.6 L (42-52) % Hgb O2 Saturation 94.9 L (95-100) % Carboxyhemoglobin 1.7 (0.4-20.1) %THgb Methemoglobin 0.9 (0.4-1.5) % Total Hemoglobin 13.2 L (14-18) g/dL Sodium 142.0 (131-143) mmol/L Potassium 4.9 (3.5-5.0) mmol/L Glucose 244.0 H (70-115) mg/dL Ionized Calcium 1.2 (1.1-1.4) mmol/L O2 Delivery Device Bipap O2 Liters/Min % FiO2 30.0 % Marine Steward ID ellpe Chloride (98-107) mmol/L Carbon Dioxide (22-29) mmol/L Anion Gap (5-19) BUN (6-20) mg/dL Creatinine (0.7-1.2) mg/dL GFR Calculation (90-130) mL/min Calculated Osmolal ity (285-295) mOsm/k g Lactic Acid (0.5-2.2) mmol/L Calcium (8.5-10.5) mg/dL Total Bilirubin (0.15-1.2) mg/dL AST (0-40) U/L ALT (0-41) U/L Alkaline Phosphata se (40-130) IU/L Creatine Kinase Cancelled 9381 H* CK-MB (CK-2) 30.5 H (0-10.4) ng/mL CK-MB (CK-2) Rel I ndex 0.3 (0.0-5.3) % Total Protein (6.6-8.7) g/dL Albumin (3.5-5.2) g/dL Globulin (1.3-4.6) g/dL Lipase (13-60) U/L Urine Color (Yellow) Urine Appearance (CLEAR) Urine pH (5-7) Ur Specific Gravit y (1.005-1.030) Urine Protein (Negative) Urine Glucose (UA) (Normal) Urine Ketones (Negative) Urine Blood (Negative) Urine Nitrate (Negative) Urine Bilirubin (NEGATIVE) Urine Urobilinogen (Negative) mg/dL Ur Leukocyte Carmen ase (Negative) Urine RBC (0-2) /hpf Urine WBC (0-5) /hpf Ur Squamous Epith Cells (0-5) Calcium Oxalate Cr ystal /hpf Amorphous Sediment Urine Bacteria (NONE) Hyaline Casts Coarse Granular Ca sts /lpf Other Casts /lpf Urine Mucus Ur Random Sodium mmol/L Urine Creatinine (39-259) mg/dL Urine Opiates Scre en (Negative) ng/mL Ur Barbiturates Sc reen (Negative) ng/mL Ur Phencyclidine S crn (Negative) ng/mL Ur Amphetamines Sc reen (Negative) ng/mL U Benzodiazepines Scrn (Negative) ng/mL Urine Cocaine Scre en (Negative) ng/mL U Marijuana (THC) Screen (Negative) ng/mL Ethyl Alcohol (0-10) mg/dL Hepatitis A IgM Ab Non-reactive (Nonreactive) Hep Bs Antigen Non-reactive (Nonreactive) Hep B Core IgM Ab Non-reactive (Nonreactive) Hepatitis C Antibo dy Reactive H (Nonreactive) 05/09/20 05/09/20 05/09/20 Range/Units 22:00 22:00 22:00 WBC (4.0-10.0) 10^3/ uL RBC (4.1-5.3) 10^6/u L Hgb (11.7-16.6) g/dL Hct (42.0-52.0) % MCV (80-94) fL MCH (28.0-34.0) pg MCHC (30.0-36.0) g/dL RDW (12.1-15.1) % Plt Count (130-400) 10^3/c mm MPV (7.4-10.4) fL Neut % (Auto) % Lymph % (Auto) % Ashley % (Auto) % Eos % (Auto) % Baso % (Auto) % Neut # (Auto) (1.8-7.7) 10^3/u L Lymph # (Auto) (0.8-4.8) 10^3/u L Ashley # (Auto) (0.2-0.9) 10^3/u L Eos # (Auto) (0.0-0.8) 10^3/u L Baso # (Auto) (0.0-0.1) 10^3/u L Nucleated RBC % (a uto) % Nucleated RBCs # /100WBC PT (10.5-13.3) SECO NDS INR (0.8-1.2) APTT (23.9-36.7) SECO NDS Specimen Type Sample Site ABG pH (7.35-7.45) ABG pCO2 (35-45) mmHg ABG pO2 (80.0-100.0) mmH g ABG HCO3 (22-26) mmol/L ABG O2 Saturation ABG Base Excess (-2.0-2.0) mmol/ L Jatinder Test A-a O2 Gradient (5-10) mmHg Hematocrit (42-52) % Hgb O2 Saturation (95-100) % Carboxyhemoglobin (0.4-20.1) %THgb Methemoglobin (0.4-1.5) % Total Hemoglobin (14-18) g/dL Sodium (131-143) mmol/L Potassium (3.5-5.0) mmol/L Glucose (70-115) mg/dL Ionized Calcium (1.1-1.4) mmol/L O2 Delivery Device O2 Liters/Min % FiO2 % Marine Steward ID Chloride (98-107) mmol/L Carbon Dioxide (22-29) mmol/L Anion Gap (5-19) BUN (6-20) mg/dL Creatinine (0.7-1.2) mg/dL GFR Calculation (90-130) mL/min Calculated Osmolal ity (285-295) mOsm/k g Lactic Acid (0.5-2.2) mmol/L Calcium (8.5-10.5) mg/dL Total Bilirubin (0.15-1.2) mg/dL AST (0-40) U/L ALT (0-41) U/L Alkaline Phosphata se (40-130) IU/L Creatine Kinase CK-MB (CK-2) (0-10.4) ng/mL CK-MB (CK-2) Rel I ndex (0.0-5.3) % Total Protein (6.6-8.7) g/dL Albumin (3.5-5.2) g/dL Globulin (1.3-4.6) g/dL Lipase (13-60) U/L Urine Color Yellow (Yellow) Urine Appearance Hazy A (CLEAR) Urine pH 5 (5-7) Ur Specific Gravit y 1.015 (1.005-1.030) Urine Protein 1+ H (Negative) Urine Glucose (UA) 4+ H (Normal) Urine Ketones Negative (Negative) Urine Blood 3+ H (Negative) Urine Nitrate Negative (Negative) Urine Bilirubin Neg (NEGATIVE) Urine Urobilinogen Norm (Negative) mg/dL Ur Leukocyte Carmen ase Negative (Negative) Urine RBC 15-25 H (0-2) /hpf Urine WBC 0-4 H (0-5) /hpf Ur Squamous Epith Cells 0-4 H (0-5) Calcium Oxalate Cr ystal 0-4 H /hpf Amorphous Sediment 2+ Urine Bacteria Trace (NONE) Hyaline Casts 0-4 H Coarse Granular Ca sts 0-4 H /lpf Other Casts Epithelial /lpf Urine Mucus Trace Ur Random Sodium 47 mmol/L Urine Creatinine 252 (39-259) mg/dL Urine Opiates Scre en Negative (Negative) ng/mL Ur Barbiturates Sc reen Negative (Negative) ng/mL Ur Phencyclidine S crn Negative (Negative) ng/mL Ur Amphetamines Sc reen Negative (Negative) ng/mL U Benzodiazepines Scrn Positive H (Negative) ng/mL Urine Cocaine Scre en Negative (Negative) ng/mL U Marijuana (THC) Screen Negative (Negative) ng/mL Ethyl Alcohol (0-10) mg/dL Hepatitis A IgM Ab (Nonreactive) Hep Bs Antigen (Nonreactive) Hep B Core IgM Ab (Nonreactive) Hepatitis C Antibo dy (Nonreactive) Discharge Plan Discharge Patient Disposition: Admitted As Inpatient Admit Provider: Archie Espinosa Clinical Impression: Acute hypercapnic respiratory failure, Acute alteration in mental status, Acute kidney injury Condition: Stable Interventions: ED Discharge Assessment Last Done: 05/09/20 23:03 ED Charges Last Done: 05/09/20 23:03 Discharge Date/Time: 05/09/20 23:36 Coding Level of Care Code ED Swimming Instructor for Chg Fwd Exam Comprehensive
--- NOTE | 2020-05-09 21:01 | XRR_ITS ---
PROCEDURE INFORMATION: Exam: XR Chest, 1 View Exam date and time: 05/09/2020 9:04 PM Age: 44 years old Clinical indication: Dyspnea TECHNIQUE: Imaging protocol: XR of the chest Views: 1 view. COMPARISON: CR XR chest 1V portable [id number] 2020-03-17 19:09 FINDINGS: Lungs: See Vasculature finding. Pleural space: Unremarkable. No pleural effusion. No pneumothorax. Heart/Mediastinum: Cardiac enlargement. Vasculature: Engorged vasculature suggesting mild pulmonary vascular congestion. Pulmonary artery enlargement. Bones/joints: Unremarkable. XR/XR chest 1V portable [id number] IMPRESSION: Cardiac enlargement. Engorged vasculature suggesting mild pulmonary vascular congestion.
--- NOTE | 2020-05-09 21:02 | ECG_ITS ---
[facility] Test Date: 2020-05-09 Pat Name: Crhis Junior Department: Room: Gender: Male Paver Operator: : 1975 Requested By: Loyd Seay Order Number: [id number] Lit MD: Maureen Babb M.D. Measurements Intervals [place] Rate: 113 P: 41 WV: 156 QRS: 87 QRSD: 89 T: 11 QT: 315 QTc: 433 Interpretive Statements SINUS TACHYCARDIA ABNORMAL RHYTHM ECG Compared to ECG 03/17/2020 19:59:11 Sinus rhythm no longer present Electronically Signed On 05-09-2020 22:49:29 CDT by Maureen Babb M.D. [id number]
--- NOTE | 2020-05-09 21:02 | CTR_ITS ---
PROCEDURE INFORMATION: Exam: CT Head Without Contrast Exam date and time: 05/09/2020 9:13 PM Age: 44 years old Clinical indication: Altered mental status/memory loss; Additional info: Symptoms of acute stroke TECHNIQUE: Imaging protocol: Computed tomography of the head without contrast. Radiation optimization: All CT scans at this facility use at least one of these dose optimization techniques: automated exposure control; mA and/or kV adjustment per patient size (includes targeted exams where dose is matched to clinical indication); or iterative reconstruction. COMPARISON: CT head wo con* [id number] 2020-03-14 20:53 RADIATION DOSE METRICS: Total DLP (mGy-cm): 1679.13 FINDINGS: Brain: Normal. No hemorrhage. Unremarkable white matter. No mass effect. Ventricles: Normal. No ventriculomegaly. Bones/joints: Unremarkable. No acute fracture. Sinuses: Visualized sinuses are unremarkable. No fluid levels. Mastoid air cells: Visualized mastoid air cells are well aerated. Soft tissues: Unremarkable. CT/CT head wo con* [id number] IMPRESSION: No acute intracranial abnormality. Radiation Dose CTDIVOL = (mGy): DLP = 1679.13 (mGy-cm)
[2020-05-09 21:17] LABS: ABG PCO2 51.8 mmHg (35-45); ABG PH Result 7.24 (7.35-7.45); Arterial Blood Gas Hematocrit 40.2 % (42-52); Base Excess ABG -5.4 mmol/L (-2.0-2.0); Blood Gas Allen Test Pos; Blood Gas Sample Site Radial, right; Blood Gas Sample Type Arterial; Carboxyhemoglobin 1.8 %THgb (0.4-20.1); HCO3 ABG 22.3 mmol/L (22-26); HGB O2 Sat 94.5 % (95-100); Ionized Calcium Level - ABG 1.3 mmol/L (1.1-1.4); Methemoglobin 1.1 % (0.4-1.5); Oxygen Device NC; Oxygen Saturation ABG 97.3; PO2 ABG 86.9 mmHg (80.0-100.0); Potassium Level - ABG 4.9 mmol/L (3.5-5.0); Total Hemoglobin 13.1 g/dL (14-18)
[2020-05-09 21:20] LABS: Basophils % 0.3 %; Eosinophils # 0.2 10^3/uL (0.0-0.8); Eosinophils % 1.7 %; Hematocrit 42.1 % (42.0-52.0); Hemoglobin 12.3 g/dL (11.7-16.6); Lymphocytes # 1.3 10^3/uL (0.8-4.8); Lymphocytes % 10.7 %; Mean Corpuscular HGB Conc 29.2 g/dL (30.0-36.0); Mean Corpuscular Hemoglobin 27.8 pg (28.0-34.0); Mean Corpuscular Volume 95.2 fL (80-94); Mean Platelet Volume 10.6 fL (7.4-10.4); Monocytes # 1.4 10^3/uL (0.2-0.9); Monocytes % 12.2 %; Neutrophils # 8.83 10^3/uL (1.8-7.7); Neutrophils % 74.8 %; Nucleated Red Blood Cells % 0 %; Platelet Count 188 10^3/cmm (130-400); Red Blood Count 4.42 10^6/uL (4.1-5.3); Red Cell Distribution Width 14.6 % (12.1-15.1); White Blood Count 11.8 10^3/uL (4.0-10.0)
[2020-05-09 21:31] LABS: INR 0.98 (0.8-1.2)
[2020-05-09 21:32] LABS: Partial Thromboplastin Time 25.1 SECONDS (23.9-36.7)
[2020-05-09 21:37] LABS: Alanine Aminotransferase 78 U/L (0-41); Albumin Level 4.1 g/dL (3.5-5.2); Alkaline Phosphatase 78 IU/L (40-130); Aspartate Amino Transferase 81 U/L (0-40); Blood Urea Nitrogen 35 mg/dL (6-20); Carbon Dioxide 22 mmol/L (22-29); Chloride 103 mmol/L (98-107); Globulin 3.3 g/dL (1.3-4.6); Glomerular Filtration Rate 12.7 mL/min (90-130); Glucose 248 mg/dL (65-115); Osmolality Calculated 290 mOsm/kg (285-295); Sodium 137 mmol/L (136-145); Total Bilirubin 0.4 mg/dL (0.15-1.2); Total Protein 7.4 g/dL (6.6-8.7)
[2020-05-09 21:42] LABS: Alcohol Level < 10 mg/dL (0-10)
[2020-05-09 22:00] LABS: ABG PCO2 54.6 mmHg (35-45); ABG PH Result 7.23 (7.35-7.45); Alveolar-Arterial Oxygen Gradi 50.7 mmHg (5-10); Arterial Blood Gas Hematocrit 40.6 % (42-52); Base Excess ABG -5.5 mmol/L (-2.0-2.0); Blood Gas Allen Test Pos; Blood Gas Sample Site Radial, right; Blood Gas Sample Type Arterial; Carboxyhemoglobin 1.7 %THgb (0.4-20.1); HCO3 ABG 22.6 mmol/L (22-26); HGB O2 Sat 94.9 % (95-100); Ionized Calcium Level - ABG 1.2 mmol/L (1.1-1.4); Methemoglobin 0.9 % (0.4-1.5); Oxygen Device BIPAP; Oxygen Saturation ABG 97.5; PO2 ABG 94.8 mmHg (80.0-100.0); Potassium Level - ABG 4.9 mmol/L (3.5-5.0); Total Hemoglobin 13.2 g/dL (14-18)
--- NOTE | 2020-05-09 22:10 | CTR_ITS ---
PROCEDURE INFORMATION: Exam: CT Abdomen And Pelvis Without Contrast Exam date and time: 05/09/2020 11:09 PM Age: 44 years old Clinical indication: Abdominal pain; Additional info: Abd pain/distended abd TECHNIQUE: Imaging protocol: Computed tomography of the abdomen and pelvis without contrast. Radiation optimization: All CT scans at this facility use at least one of these dose optimization techniques: automated exposure control; mA and/or kV adjustment per patient size (includes targeted exams where dose is matched to clinical indication); or iterative reconstruction. COMPARISON: CT abdomen pelvis w con* [id number] 2020-03-22 03:21 RADIATION DOSE METRICS: Total DLP (mGy-cm): 1126.15 FINDINGS: Tubes, catheters and devices: A balloon bladder catheter is present. Liver: Normal. No mass. Gallbladder and bile ducts: Normal. No calcified stones. No ductal dilation. Pancreas: Normal. No ductal dilation. Spleen: Normal. No splenomegaly. Adrenals: Normal. No mass. Kidneys and ureters: Normal. No hydronephrosis. Stomach and bowel: Gas distended bowel. Appendix: No evidence of appendicitis. Intraperitoneal space: Unremarkable. No free air. No significant fluid collection. Vasculature: Unremarkable. No abdominal aortic aneurysm. Lymph nodes: Unremarkable. No enlarged lymph nodes. Bladder: Unremarkable as visualized. Reproductive: Unremarkable as visualized. Bones/joints: Unremarkable. No acute fracture. Soft tissues: Unremarkable. Other findings: Centralized intra-abdominal excess adipose tissue. CT/CT abdomen pelvis con [id number] IMPRESSION: 1. No acute abnormality. 2. Gas distended bowel. 3. Centralized intra-abdominal excess adipose tissue. Radiation Dose CTDIVOL = (mGy): DLP = 1126.15 (mGy-cm)
[2020-05-09] MEDS: sodium chloride 0.9% 1,000 ML 999 ML IV (22:12)
[2020-05-09] MEDS: naloxone 0.4 mg/ml SDV IVP (22:12)
--- NOTE | 2020-05-09 22:33 | P.HP_ITS ---
Providers/Chief Complaint Admitting Physician: Archie Espinosa Primary Care Provider: Usha López MD Chief Complaint: NOT ACTING APPROPRIATELY History of Present Illness Chris Junior is a 44 year old pleasant gentleman brought to ER for evaluation due to AMS with decreased responsiveness. He just had carpal tunnel surgery yesterday. Reportedly had also alcohol day before yesterday. He also has history of chronic pain due to DDD and surgeries of neck and lower back, and takes flexeril, clonopin, oxycodone. Also takes vilazodone and quetiapine. In ER he had to be started on BiPAP due to acute hypercapnic respiratory failure. With noted mild leukocytosis 11.8. Sinus tachycardia. Acute kidney injury on chronic disease with creatinine of 5, baseline appears around 1.2. With mild to adenitis, AST 81, ALT 78. Urine toxicology positive for benzodiazepine. UA 1+ proteinuria. ABG with combination respiratory and metabolic acidosis. pH 7.23. Received fluid challenge bolus 1 L. A dose of Narcan. During my visit he is now awake, alert, still on BiPAP. Reports last night he was having nausea, started feeling weak, was having aches and pain in his belly, especially in the right upper quadrant. He denies history of COPD or CHF. Denies that he has been short of breath recently. Denies any cough, sputum production or known hemoptysis. Does not have any chest pain, although says on and off has sometimes chest discomfort. Denies prior history of CT. 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 Confirm drinking alcohol but not on the day of surgery, but the day before. A fifth of fireball. Reports he does not drink consistently. Only on occasion. He is a current smoker of half a pack per day. Denies any drug use. Reports he takes his muscle relaxers, pain medication, due to chronic pain for which she is supposed to start following with Armida García. Reports previously was seeing Dr. Franklin. Does not follow with pain medicine clinic. He is not aware of having chronic kidney disease in the past. He does report that while he was having abdominal pains and nausea he also noticed he could not urinate. Currently he has a urinary catheter. Initially no urine could be obtained, however, has now produced some. He takes lisinopril for blood pressure. He also has been taking ibuprofen for a while, and also since the surgery. He reports being a diabetic, but says has been keeping up with his insulin. Review of Systems Const: Reports: other (Generalized weakness. Lethargy.); Denies: fever(s), chills, body aches or malaise Eyes: Denies: change in vision or eye redness ENMT: Denies: throat pain, oral sores or ear or mastoid pain Card: Reports: chest pain (Occasional mild on and off, not currently.) and swelling of feet/ankles; Denies: edema, syncope, pre-syncope, dyspnea on exertion or orthopnea Resp: Denies: dyspnea, productive cough, change in phlegm color or hemoptysis GI: Reports: abdominal pain (Especially right upper quadrant); Denies: nausea, vomiting, diarrhea, constipation, hematochezia or melena : Denies: flank pain, difficulty urinating, urinary frequency or hematuria Musc: Denies: back pain, joint swelling or joint redness Skin/Breast: Denies: rash, sores or new lesions Neuro: Denies: headache(s), numbness in extremities, weakness in extremities, dizziness, confusion or seizure-like activity Endo: Denies: polyuria or polydipsia Nba/Lymph: Denies: easy bleeding or purpura All/Imm: Denies: urticaria, throat swelling or tongue swelling Medications/Allergies Home Medications Medication Instructions Recorded Confirmed Last Taken Type vilazodone 40 mg tablet 40 mg PO .COMPLEX 10/30/19 05/07/20 05/07/20 History dicyclomine 10 mg capsule 10 mg PO QID PRN 30 Days #60 cap 12/10/19 05/07/20 Unknown Rx ibuprofen 800 mg tablet 800 mg PO Q8H PRN 30 Days #90 tab 12/10/19 05/07/20 05/07/20 Rx cyclobenzaprine 10 mg tablet 10 mg PO TID PRN 30 Days #90 tab 01/24/20 05/07/20 05/07/20 Rx lovastatin 20 mg tablet 20 mg PO QDAY 30 Days #30 tab 03/03/20 05/07/20 05/05/20 Rx pen needle, diabetic 32 gauge x #100 each 03/03/20 04/13/20 Unknown Rx 03/07 albuterol sulfate 90 mcg/actuation 1 - 2 puff INHALATION Q6H PRN 30 03/30/20 05/08/20 Unknown Rx aerosol inhaler Days #18 gm canagliflozin 300 mg tablet 300 mg PO QAM 30 Days #30 tab 03/30/20 05/07/20 05/07/20 Rx insulin glargine 100 unit/mL (3 20 unit SUBCUT DAILY 30 Days #6 ml 03/30/20 05/07/20 05/06/20 Rx mL) subcutaneous pen lisinopril 5 mg tablet 5 mg PO QDAY 30 Days #30 tab 03/30/20 05/07/20 05/06/20 Rx metformin 500 mg tablet,extended 500 mg PO QDAY 30 Days #30 tab 03/30/20 05/07/20 05/07/20 Rx release 24 hr omeprazole 40 mg capsule,delayed 40 mg PO DAILY 30 Days #30 cap 03/30/20 05/07/20 05/07/20 Rx release quetiapine 25 mg tablet 25 mg PO TID 03/30/20 05/07/20 05/07/20 History clonazepam 1 mg PO DAILY 05/07/20 05/07/20 05/08/20 05:00 History gabapentin 400 mg PO DAILY 05/07/20 05/07/20 05/07/20 History oxycodone 5 mg PO Q6H PRN #30 tab 05/08/20 Unknown Rx Allergies Allergy/AdvReac Type Severity Reaction Status Date / Time adhesive tape Allergy Severe rash Verified 05/08/20 06:39 Sulfa (Sulfonamide Allergy Severe unknown Verified 05/08/20 06:39 Antibiotics) tramadol Allergy Severe itch Verified 05/08/20 06:39 acetaminophen [From Tylenol] AdvReac Severe unknown Verified 05/08/20 06:39 PFSH Acute PFSH: Medical History ADD (attention deficit disorder) Chronic pain syndrome GERD (gastroesophageal reflux disease) Hyperlipidemia Hypertension Irritable bowel syndrome Tobacco use Type 2 diabetes mellitus Surgical History H/O neck surgery H/O wrist surgery R History of back surgery History of carpal tunnel surgery L Family History Family/Other No problems noted. Other Adopted Social History Smoking and tobacco status: current every day smoker cigarettes Packs smoked per day: 0.5 [ Other cigarette details: Says has been cutting down ] and smokeless tobacco Quit status (tobacco): considering quitting Second hand smoke exposure: Yes Smoking risk assessment/counseling performed?: No Alcohol intake: current Alcohol intake frequency: holidays/special occasions only Alcohol type: hard liquor Desire information about alcohol rehabilitation?: No Substance/Drug Use: never Lives independently: Yes Household members: spouse Marital status: Current occupational status: unemployed Current gender identity: Male Vitals/I&O/Wt Last Vital Signs Temp 98.8 F 05/09/20 20:20 Pulse 117 H 05/09/20 22:13 Resp 19 H 05/09/20 22:13 BP 116/76 05/09/20 22:13 Pulse Ox 96 05/09/20 22:13 Weight last 48 hrs Weight 108.862 kg Physical Exam Const: COMMON NORMALS: no acute distress and patient oriented x3 (Currently mental status is improved, he is now awake alert and oriented during my visit. Pleasant. Conversant.) GENERAL APPEARANCE: cooperative NUTRITIONAL APPEARANCE: overweight HENMT: COMMON NORMALS: oropharynx normal Neck/C-Spine: COMMON NORMALS: no JVD Resp: COMMON NORMALS: normal respiratory effort and clear to auscultation bilaterally AUSCULTATION: clear to auscultation bilaterally Cardio: COMMON NORMALS: no JVD, regular rhythm, S1 normal heart sound present, S2 normal heart sound present and No murmurs present (Cardio) RHYTHM: regular rhythm HEART SOUNDS: S1 normal heart sound present and S2 normal heart sound present GI: COMMON NORMALS: Normal to inspection, nondistended, normoactive bowel sounds present and Soft to palpation PALPATION: Yes Soft to palpation and Yes Tenderness to palpation present (GI) (general mild tenderness, worse tenderness in RUQ) Extremity: COMMON NORMALS: no joint enlargement GENERAL: Yes edema (trace) Neuro: COMMON NORMALS: patient oriented x3 and moves all extremities Skin: COMMON NORMALS: no rashes or lesions noted GENERAL SKIN EXAM: no rashes or lesions noted Data : 05/09/20 21:13 05/09/20 21:13 A&P Assessment and plan (1) Acute kidney injury: Creatinine up to 5. Initially anuric in ER, however, producing some urine after fluid challenge with 1 L NS bolus. Some congestive changes on chest x- ray, Initial respiratory failure, although hypercapnic, and suspected secondary to hypoventilation, however, for now will avoid additional continuous IV fluid infusion. Additional bolus/fluid challenge as needed or recommended by nephrology. He takes lisinopril, and has been taking ibuprofen at home. Suspect these may be the culprits. Otherwise he does say his appetite has not been the greatest recently. May be a prerenal component as well. There is some microscopic hematuria in urine. Requested the noncontrast CT abdomen pelvis be done with renal protocol to rule out stone/obstruction. Hold potentially injurious medications. Discussed with him to discontinue ibuprofen in the future and he verbalized understanding. Monitor KAREL. Renal function. Appreciate nephrology recommendations. Robertson catheter was placed, but he is in significant discomfort from it right now. Urine was collected for studies. He is requesting to have the catheter removed. Status: Acute (2) Acute metabolic encephalopathy: Acute metabolic encephalopathy now appears to be improving. This appears likely combination of multiple factors including polypharmacy with his multiple medications that could contribute to mental status changes. Discussed with him in detail with regards to all his medicines with good contribute, and especially now also with acute kidney injury. Metabolic encephalopathy from kidney injury with metabolic acidosis, possibly also contributing. Perhaps other process with abdominal pain, for which currently being additionally investigated by CT abdomen pelvis. Likely also subsequently worsening of encephalopathy with CO2 narcosis due to hypoventilation due to the above causes. This is improved significantly with BiPAP, and other treatments she has received so far including a dose of Narcan due to respiratory depression. At this time continue to monitor mental status condition. Will monitor with continuous pulse oximetry. Treat underlying illnesses as outlined elsewhere in this note. Status: Acute (3) Polypharmacy: On a number of medications which could contribute to mental status changes, including vilazodone, quetiapine, cyclobenzaprine, gabapentin, Klonopin, oxycodone. Also had recently undergone carpal tunnel surgery. Also reports drinking 1/5 of fireball whiskey the day before. All of these likely contributed to the above episode of encephalopathy. Would benefit from review of medications, and discontinuation of whichever ones are possible. He deals with chronic pain, and so definitely there may be difficulty with that. Encouraged him to exercise particular caution with all of these medicines, especially in the setting of kidney injury. Currently will hold most of them. Cutdown gabapentin dose. Continue oxycodone for pain. Hold others for now until it is clear that mental status is stable. Status: Acute (4) Acidosis, metabolic, with respiratory acidosis: Combination of metabolic and respiratory acidosis. With acute encephalopathy, hypoventilation and development of respiratory acidosis with hypercapnia. Metabolic acidosis secondary to acute kidney injury. Check lactic acid. Respiratory status is fair to be resolving now that he is awake and alert. Continue treatment of underlying causes. Status: Acute (5) Abdominal pain: Currently abdomen is distended, suspected secondary to BiPAP, but also does report having some abdominal discomfort last night, including discomfort does worsen right upper quadrant. Also has some microscopic hematuria noted. Severe BO. Is a current smoker. Due to this noncontrast CT abdomen pelvis is requested. We will follow-up. There is mild transaminitis, although bilirubin and alkaline phosphatase are normal. Follow-up liver parameters. For now hold off antibiotics, but will follow up on CT results, and clinical condition, and consideration for antibiotics may still be given. Blood cultures have been ordered for now given recent surgery. Lipase only mildly elevated at 67. Status: Acute (6) Transaminitis: Mild transaminitis. AST 81, ALT 78. Lipase mildly elevated at 67. This is suspected secondary to alcohol intake as he reports drinking 1/5 of fireball whiskey yesterday. We will check CK. Acute hepatitis panel. Monitor liver parameters. Status: Acute (7) Hematuria: Microscopic hematuria noted on UA. With acute kidney injury. CT abdomen pelvis with renal protocol as above. He is a current smoker. May benefit from additional follow-up for evaluation by urology on a nonemergent basis. Status: Acute (8) Carpal tunnel syndrome: With surgery release for carpal tunnel syndrome on the left on 05/08. Status: Acute Qualifiers: Laterality: left Qualified Code(s): G56.02 - Carpal tunnel syndrome, left upper limb (9) Chronic pain syndrome: On a number of medications due to chronic pain. Status post to be seeing Armida García. Has not seen a pain specialist. Previously followed with Dr. Franklin. May benefit from follow-up with pain clinic. Caution with his medications due to polypharmacy. Acute kidney injury. Status: Chronic (10) Chest pain: Currently no chest pain, but reports occasional mild chest discomfort intermittently. Nothing recently. Consider additional outpatient follow-up given his current smoking, and other risk factors of coronary disease. Denies having known coronary disease or history of CT. Status: Acute (11) Tobacco use: Discussed smoking cessation for 3-1/2 minutes. He reports he has been trying to quit. He is down to half a pack per day. He is agreeable for nicotine replacement with nicotine patch, gum as needed. Please continue to encourage cessation and assist in quitting. Status: Chronic (12) Type 2 diabetes mellitus with hyperglycemia: Continue insulin Lantus, insulin sliding scale. Hold oral medications while in the hospital. Status: Chronic Qualifiers: Diabetes mellitus [facility] insulin use: without terminal block assembler use Qualified Code(s): E11.65 - Type 2 diabetes mellitus with hyperglycemia (13) Leukocytosis: Mild leukocytosis 11.8. After recent surgery, suspect possibly related to this, or stress related. Does have some sinus tachycardia, although at this time sepsis is probably less likely, however, we will follow-up on results of CT abdomen pelvis. C onsideration may be given to some mild aspiration, although there is no sign of pneumonitis on imaging, and he is not short of breath, without any cough, and hypercapnic respiratory failure likely was secondary to hypoventilation with his acute encephalopathy. For now we will monitor without antibiotic, however, low threshold to reassess and initiate empiric therapy in case there is any change in his condition. Status: Acute (14) Tachycardia: As above. This appears possibly related to his acute metabolic de rangements. For now no infection can definitively be identified, and so we will monitor without antibiotic. Perhaps there may be some alcohol withdrawal, although he denies drinking on a regular basis, and so this is probably less likely. PE is unlikely, with Wells score of 3, without any pulmonary symptoms, no chest pain, hemoptysis, unilateral swelling. However, would monitor for any changes in symptoms, with low threshold for additional assessment. Status: Acute (15) Hyperlipidemia: Continue statin. Status: Chronic Qualifiers: Hyperlipidemia type: mixed hyperlipidemia Qualified Code(s): E78.2 - Mixed hyperlipidemia (16) Hypertension: Monitor BP. Hold lisinopril. Status: Chronic Qualifiers: Hypertension type: essential hypertension Qualified Code(s): I10 - Essential (primary) hypertension (17) GERD (gastroesophageal reflux disease): Cont PPI. Status: Chronic Qualifiers: Esophagitis presence: without esophagitis Qualified Code(s): K21.9 - Gastro-esophageal reflux disease without esophagitis Attestations Medical Necessity Statement*: Admission of over 2 midnights is good to be needed for assessment of management of acute kidney injury, acute encep halopathy, metabolic and respiratory acidosis, abdominal pain, and other medical problems as above. Coding Level of Care Code Acute Tube Roller for [facility] Fwd Diagnoses Acute kidney injury N17.9 Acute metabolic encephalopathy G93.41 Polypharmacy Z79.899 Acidosis, metabolic, with respiratory acidosis E87.4 Abdominal pain R10.9 Transaminitis R74.0 Hematuria R31.9 Carpal tunnel syndrome G56.02 Laterality: left Chronic pain syndrome G89.4 Chest pain R07.9 Tobacco use Z72.0 Type 2 diabetes mellitus with hyperglycemia E11.65 Diabetes mellitus [facility] insulin use: without terminal block assembler use Leukocytosis D72.829 Tachycardia R00.0 Hyperlipidemia E78.2 Hyperlipidemia type: mixed hyperlipidemia Hypertension I10 Hypertension type: essential hypertension GERD (gastroesophageal reflux disease) K21.9 Esophagitis presence: without esophagitis
[2020-05-09 22:34] LABS: Lactic Sepsis W/Reflex 1.6 mmol/L (0.5-2.2)
[2020-05-09 22:34] LABS: Amphetamines Screen Urine Negative (Negative); Barbiturates Screen Urine Negative (Negative); Benzodiazepines Screen Urine Positive (Negative); Cocaine Screen Urine Negative (Negative); Opiate Screen Urine Negative (Negative); PCP Screen Urine Negative (Negative); THC Screen Urine Negative (Negative)
[2020-05-09 22:44] LABS: Bilirubin Urine Neg (NEGATIVE); Blood Urine 3+ (Negative); Glucose Urine UA 4+ (Normal); Ketones Urine Negative (Negative); Leukocyte Esterase Urine Negative (Negative); Nitrate Urine Negative (Negative); Protein Urine 1+ (Negative); Specific Gravity, Urine 1.015 (1.005-1.030); Urine Appearance Hazy (CLEAR); Urine Color Yellow (Yellow); Urobilinogen Urine Norm (Negative); pH Urine 5 (5-7)
[2020-05-09 22:45] LABS: Add Urine Microscopic? YES; RBC Urine 15-25 /hpf (0-2); WBC Urine 0-4 /hpf (0-5)
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
[2020-05-09 22:46] LABS: Amorphous Sediment Urine 2+; Bacteria Urine TRACE; Calcium Oxalate Crystals Urine 0-4 /hpf; Mucus Urine TRACE; Squamous Epithelial Cell Urine 0-4 (0-5)
[2020-05-09 22:47] LABS: Add Urine Culture? Yes; Coarse Granular Casts Urine 0-4 /lpf; Hyaline Casts Urine 0-4; Other Casts Urine EPITHELIAL /lpf
[2020-05-09 23:01] LABS: Lipase 67 U/L (13-60)
--- NOTE | 2020-05-09 23:58 | PC.NURSE ---
Patient received from ed via stretcher. Patient began screaming and cussing. Able to calm patient to determine what was wrong. Patient stated, I just have to go to the bathroom. This thing in my bladder really really hurts. Patient became tearful with the pain. Informed Dr Espinosa about patient complaint. Received okay to remove robertson catheter for now. Instructed patient on need for robertson and the request from Dr Patel to have robertson in place due to decreased kidney function and urinary output. Patient stated, I just need it out right now it hurts so bad. Patient was agreeable to replacing at later time if unable to void independently. Robertson was removed with Dr Espinosa approval. Urinal provided. Patient is resting more comfortably and talking on the phone with his .
[2020-05-10] VITALS (16 sets, daily range): BP systolic 100–135; BP diastolic 71–96; PULSE 66–117; RESP 13–24; TEMP 36.8–37.2; O2SAT 93–99
[2020-05-10 00:36] LABS: Urine Creatinine 252 mg/dL (39-259); Urine Random Sodium 47 mmol/L
[2020-05-10] MEDS: nicotine 14 mg Patch 1 PATCH TRANSDERMA ×2 (00:47→08:55)
[2020-05-10] MEDS: enoxaparin 40 mg/0.4 mL Syringe SUBCUT (00:47)
[2020-05-10] MEDS: insulin glargine 100 units/1 mL 20 UNIT SUBCUT ×2 (00:48→20:26)
[2020-05-10] MEDS: metoprolol succinate ER (24 HR) 25 mg Tablet 12.5 MG PO ×2 (00:48→08:55)
[2020-05-10 00:49] LABS: Glucose Point of Care 151 mg/dL (70-110)
[2020-05-10] MEDS: oxyCODONE 5 mg IR Tab/Cap PO ×3 (00:50→23:30)
[2020-05-10] MEDS: sodium chloride 0.9% 1,000 ML 100 ML IV ×3 (00:52→20:13)
[2020-05-10 00:56] LABS: Creatine Phosphokinase 9381 U/L (39-308)
[2020-05-10 01:03] LABS: CKMB Relative Index 0.3 % (0.0-5.3)
--- NOTE | 2020-05-10 01:17 | PC.NURSE ---
Lamont is very animated at this time. Patient telling his he was going home. Patient is pleasant, appropriate and cooperative for now. Unable to keep telemetry in place. Patient keeps trying to remove IV. Requires a lot of reorientation presently. Does verbalize understanding. Informed Dr Espinosa of patient current condition. Dr to review home medications. Waiting for orders.
[2020-05-10] MEDS: diazePAM 2 mg Tablet PO ×3 (01:39→20:13)
--- NOTE | 2020-05-10 04:14 | PC.NURSE ---
Patient assisted with toileting. Patient stated, I was having a bad dream. Patient SpO2 currently 98-100% on RA.
[2020-05-10 04:21] LABS: Hepatitis A Antibody IgM Non-Reactive (Nonreactive); Hepatitis B Core IgM Non-Reactive (Nonreactive); Hepatitis B Surface Antigen Non-Reactive (Nonreactive); Hepatitis C Virus Antibody Reactive (Nonreactive)
--- NOTE | 2020-05-10 04:47 | PC.NURSE ---
Patient in semi-fowlers position. Patient snoring with intermittent apnea causing a decrease in O2 levels to 88%. Replaced NC at 2L and patient SpO2 between 96-100%. No other distress observed at this time.
[2020-05-10 06:37] LABS: Glucose Point of Care 223 mg/dL (70-110)
--- NOTE | 2020-05-10 08:23 | PC.NURSE ---
Patient was looking for his 500$ money Pt reported that he could not find his 500$ money. Pt was looking for his money in his wallet. I asked him i can ask his if she has his money and then call the security. I talk to the Zoila via phone and she told me, He does not have any money. What he has in his wallet is certificates, medicaid cards and Social security cards. He does not have money until the 3rd. The is crying on the phone telling me his been acting weird. She said, He started to get angry and violent. His doctor was telling us that he is on the stage of early dementia. Informed the security of the conversation with .
[2020-05-10] MEDS: atorvastatin 40 mg Tablet 20 MG PO (08:53)
[2020-05-10] MEDS: pantoprazole DR 40 mg Tablet PO (08:54)
[2020-05-10] MEDS: gabapentin 100 mg Capsule 200 MG PO (08:54)
[2020-05-10 10:11] LABS: Basophils % 0.2 %; Eosinophils # 0.2 10^3/uL (0.0-0.8); Eosinophils % 1.4 %; Hematocrit 38.9 % (42.0-52.0); Hemoglobin 11.6 g/dL (11.7-16.6); Lymphocytes # 1.2 10^3/uL (0.8-4.8); Lymphocytes % 7.7 %; Mean Corpuscular HGB Conc 29.8 g/dL (30.0-36.0); Mean Corpuscular Hemoglobin 27.4 pg (28.0-34.0); Mean Platelet Volume 10.2 fL (7.4-10.4); Monocytes # 1.6 10^3/uL (0.2-0.9); Monocytes % 10.5 %; Neutrophils # 11.96 10^3/uL (1.8-7.7); Neutrophils % 79.8 %; Nucleated Red Blood Cells % 0 %; Platelet Count 168 10^3/cmm (130-400); Red Blood Count 4.23 10^6/uL (4.1-5.3); Red Cell Distribution Width 14.6 % (12.1-15.1)
[2020-05-10 10:29] LABS: Alanine Aminotransferase 83 U/L (0-41); Albumin Level 4.1 g/dL (3.5-5.2); Alkaline Phosphatase 76 IU/L (40-130); Anion Gap 15.8 (5-19); Aspartate Amino Transferase 139 U/L (0-40); Blood Urea Nitrogen 35 mg/dL (6-20); Calcium 8.7 mg/dL (8.5-10.5); Carbon Dioxide 22 mmol/L (22-29); Chloride 105 mmol/L (98-107); Globulin 2.9 g/dL (1.3-4.6); Glucose 169 mg/dL (65-115); Osmolality Calculated 287 mOsm/kg (285-295); Potassium 4.8 mmol/L (3.5-5.1); Sodium 138 mmol/L (136-145); Total Bilirubin 0.5 mg/dL (0.15-1.2)
--- NOTE | 2020-05-10 10:34 | P.PN_ITS ---
Subjective Subjective: Interval history: Patient seen and examined, initially wanted to leave AMA per nursing staff due to wanting to see his family, discussed that we have formal visiting hours and he is agreeable to stay. Returned in the afternoon to visit with family at bedside, discussed patient's clinical status so far and answered their questions. He has been voiding since Robertson catheter removal. Has had 2 loose BM, stool studies ordered. States that he has a hx of IBS. CPK this afternoon increased to 15,000, from 9381. Medications: Reviewed: Yes Medication Review Details: Active Medications Generic Name Dose Route Start Last Admin Trade Name Freq PRN Reason Stop Dose Admin Albuterol Sulfate 1 puff 05/09/20 23:33 Ventolin INHALATION Q6H PRN shortness of ana th or wheezing Atorvastatin Calci um 20 mg 05/10/20 09:00 05/10/20 08:53 Lipitor PO 20 mg DAILY NINA Administration Dextrose 25 ml 05/10/20 07:41 D50w IVP ONCE PRN hypoglycemia prot ocol Protocol Dextrose 50 ml 05/10/20 07:41 D50w IVP PRN PRN hypoglycemia prot ocol Protocol Diazepam 2 mg 05/10/20 01:31 05/10/20 08:56 Valium PO 2 mg TID PRN Administration Anxiety Dicyclomine HCl 10 mg 05/09/20 23:56 Bentyl PO QID PRN abdominal discomf ort Enoxaparin Sodium 30 mg 05/11/20 00:00 Lovenox SUBCUT Q24H NINA Gabapentin 200 mg 05/10/20 09:00 05/10/20 08:54 Neurontin PO 200 mg DAILY NINA Administration Glucagon 1 mg 05/10/20 07:41 Glucagen IM ONCE PRN Adult Acute Hypog lycemia Prot. Protocol Sodium Chloride 1,000 mls @ 100 m ls/hr 05/09/20 23:33 05/10/20 00:52 Sodium Chloride 0.9% IV 100 mls/hr .Q10H NINA Administration Dextrose 500 mls @ 100 mls /hr 05/10/20 07:41 D5w IV ONCE PRN Adult Acute Hypog lycemia Prot Protocol Insulin Aspart 0 unit 05/10/20 08:00 05/10/20 08:53 Novolog SUBCUT 6 unit WM&BEDTIME NINA Administration Protocol Insulin Glargine 20 unit 05/10/20 00:00 05/10/20 00:48 Lantus SUBCUT 20 unit BEDTIME NINA Administration Metoprolol Succina te 12.5 mg 05/10/20 00:10 05/10/20 08:55 Toprol Xl PO 12.5 mg DAILY NINA Administration Nicotine 1 patch 05/09/20 23:40 05/10/20 08:55 Nicoderm 14 Mg P atch TRANSDERMA 1 patch DAILY NINA Administration Nicotine Polacrile x 2 mg 05/09/20 23:35 Nicorette BUCCAL Q2H PRN WITHDRAWAL Oxycodone HCl 5 mg 05/09/20 23:33 05/10/20 00:50 Oxycodone Ir PO 5 mg Q6H PRN Administration pain Pantoprazole Sodiu m 40 mg 05/10/20 09:00 05/10/20 08:54 Protonix PO 40 mg DAILY NINA Administration adhesive tape Allergy (Severe, Verified 05/08/20 06:39) rash Sulfa (Sulfonamide Antibiotics) Allergy (Severe, Verified 05/08/20 06:39) unknown tramadol Allergy (Severe, Verified 05/08/20 06:39) itch acetaminophen [From Tylenol] Adverse Reaction (Severe, Verified 05/08/20 06:39) unknown Vitals/I&O/Wt Last Vital Signs Temp 99 F 05/10/20 08:49 Pulse 106 H 05/10/20 09:44 Resp 17 05/10/20 09:44 BP 119/78 05/10/20 08:49 Pulse Ox 98 05/10/20 09:44 05/09/20 05/10/20 05/10/20 22:59 06:59 14:59 Intake Total 1420 / 1420 118 / 118 Output Total 400 / 400 450 / 450 Balance 1020 / 1020 -332 / -332 Weight last 48 hrs Weight 95.481 kg Weight 108.862 kg Physical Exam Const: COMMON NORMALS: no acute distress, patient oriented x3 and alert GENERAL APPEARANCE: cooperative and comfortable NUTRITIONAL APPEARANCE: obese centrally obese ORIENTATION/CONSCIOUSNESS: Yes awake OTHER: -unkempt HENMT: COMMON NORMALS: normocephalic, atraumatic, hearing grossly normal bilaterally and moist oral mucous membranes HEAD & SCALP: normocephalic and atraumatic TEETH & GINGIVA: Yes poor dentition Eye: COMMON NORMALS: Equal, round and reactive pupils present, EOMs intact bilaterally and conjunctivae normal CONJUNCTIVA: Yes conjunctivae normal PUPIL: Yes Equal, round and reactive pupils present Neck/C-Spine: COMMON NORMALS: full ROM GENERAL: Yes normal visual inspection and Yes trachea midline Resp: COMMON NORMALS: normal respiratory effort, No retractions, No use of accessory muscles and clear to auscultation bilaterally EFFORT & INSPECTION: Yes able to speak in complete sentences, Yes symmetric chest movement and No tachypneic AUSCULTATION: clear to auscultation bilaterally Cardio: COMMON NORMALS: regular rate, regular rhythm, S1 normal heart sound present, S2 normal heart sound present and No murmurs present (Cardio) RATE: regular rate RHYTHM: regular rhythm HEART SOUNDS: S1 normal heart sound present and S2 normal heart sound present GI: COMMON NORMALS: Normal to inspection, nondistended, normoactive bowel sounds present, Soft to palpation and non-tender INSPECTION: Yes central obesity PALPATION: Yes Soft to palpation Extremity: COMMON NORMALS: normal to inspection, full ROM and no clubbing, cyanosis or edema; negative for no pedal edema Neuro: COMMON NORMALS: patient oriented x3, moves all extremities, no focal motor deficits, no sensory deficits noted and gait normal SENSORIUM/ORIENTATION: Yes alert Psych: COMMON NORMALS: mental status grossly normal, Normal thought process present, cooperative, normal affect and speech normal SPEECH: Yes normal speech THOUGHT PROCESS: Normal thought process present Skin: COMMON NORMALS: no jaundice, no petechiae and no mottling NARRATIVE SKIN EXAM: -discrete papular lesions on upper chest, erythematous blanchable patch just below R rib cage Data : 05/10/20 09:55 05/10/20 09:55 Micro: Microbiology 05/09/20 09:55 Blood Culture - Preliminary Blood SPECIMEN COLLECTED 05/09/20 21:13 Blood Culture - Preliminary Blood SPECIMEN COLLECTED A&P Assessment and plan (1) Acute kidney injury: -Noted acutely worsening renal function, has underlying CKD stage II with a baseline creatinine of about 1 -Likely multifactorial given rhabdomyolysis, use of LOIS inhibitor, NSAIDs; poor oral intake recently -LOIS inhibitor and NSAIDs on hold; avoid nephrotoxins, renally dose meds -Close monitoring of renal function -Robertson catheter discontinued per patient request, continue to monitor urine output -Urinalysis with noted proteinuria, glucosuria, hematuria; urine lytes noted -No noted abnormalities on CT of the abdomen and pelvis -IVF hydration -Nephrology evaluation appreciated Status: Acute (2) Acute metabolic encephalopathy: -Likely multifactorial given acute renal impairment, rhabdomyolysis, polypharmacy -UDS positive for benzos -on BiPAP initially, weaned to 2 L NC, continue to monitor respiratory status -VSS; continue to monitor -CXR with noted cardiomegaly, mild pulmonary vascular congestion -fall precautions; re-orient as needed -recent COVID-19 testing, negative -CT head negative for acute changes -hold sedating meds, narcotics Status: Acute (3) Transaminitis: -could be related to rhabdomyolysis, recent EtOH intake, noted hep C antibody positive -continue to trend LFTs -hold statin -has known hx of chronic hepatitis C, per his report, previous viral load undetectable; order this Status: Acute (4) Rhabdomyolysis: -CPK elevated (9381) with BO -continue to trend CPK -on IVF hydration Status: Acute Qualifiers: Rhabdomyolysis type: non-traumatic Qualified Code(s): M62.82 - Rhabdomyolysis (5) Hypertension: -VSS; continue to monitor Status: Chronic Qualifiers: Hypertension type: essential hypertension Qualified Code(s): I10 - Essential (primary) hypertension (6) GERD (gastroesophageal reflux disease): -on PPI Status: Chronic Qualifiers: Esophagitis presence: without esophagitis Qualified Code(s): K21.9 - Gastro-esophageal reflux disease without esophagitis (7) Hyperlipidemia: -statin on hold due to rhabdo Status: Chronic Qualifiers: Hyperlipidemia type: mixed hyperlipidemia Qualified Code(s): E78.2 - Mixed hyperlipidemia (8) Type 2 diabetes mellitus with hyperglycemia: -IDDM type II -A1c- -Accuchecks, ISS, hypoglycemia precautions -hold metformin Status: Chronic Qualifiers: Diabetes mellitus intermediate manager insulin use: without intermediate manager use Qualified Code(s): E11.65 - Type 2 diabetes mellitus with hyperglycemia (9) Carpal tunnel syndrome: -s/p L carpal tunnel release, done by Dr. Coy on 05/08 Status: Acute Qualifiers: Laterality: left Qualified Code(s): G56.02 - Carpal tunnel syndrome, left upper limb (10) Hematuria: -as noted above Status: Acute Qualifiers: Hematuria type: other microscopic Qualified Code(s): R31.29 - Other microscopic hematuria (11) Tobacco use: -nicotine replacement therapy -smoking cessation recommended Status: Chronic Additional A&P Information -Obesity: BMI-30 kg/m2 -Chest pain; none currently -Chronic pain; on multiple meds including muscle relaxants, gabapentin -Tachycardia; low suspicion for infection, continue to monitor; likely related to metabolic and renal issues -Leukocytosis, likely reactive; hold off on abx for now. Follow up blood and urine cx -Abdominal pain; imaging unremarkable -Neuropathy; pending EMG (ordered as outpatient), following up with Neurology -prior hx of IV methamphetamine abuse; abstinent x 4 yrs -consistent carb diet as tolerated -GI ppx with PPI -DVT ppx with heparin -Dispo: home -Code status: FULL code Attestations Medical Necessity Statement*: Patient requires hospitalization for continued management of acute kidney injury, rhabdomyolysis, needs continued monitoring of renal function, IVF hydration. Time Spent in Patient Care: Greater than 35 minutes (>than 50% of time spent in counselling and/or direct pt care on unit) . Coding Level of Care Code Acute Pcat Instructor for g Fwd Exam Comprehensive Diagnoses Acute kidney injury N17.9 Acute metabolic encephalopathy G93.41 Transaminitis R74.0 Rhabdomyolysis M62.82 Rhabdomyolysis type: non-traumatic Hypertension I10 Hypertension type: essential hypertension GERD (gastroesophageal reflux disease) K21.9 Esophagitis presence: without esophagitis Hyperlipidemia E78.2 Hyperlipidemia type: mixed hyperlipidemia Type 2 diabetes mellitus with hyperglycemia E11.65 Diabetes mellitus intermediate insulin use: without intermediate manager use Carpal tunnel syndrome G56.02 Laterality: left Hematuria R31.29 Hematuria type: other microscopic Tobacco use Z72.0
[2020-05-10] MEDS: heparin 5,000 unit/mL INJ 1 mL 5000 UNIT SUBCUT ×2 (11:54→19:11)
[2020-05-10 12:02] LABS: Glucose Point of Care 107 mg/dL (70-110)
[2020-05-10] MEDS: nicotine 2 mg Gum BUCCAL (13:03)
[2020-05-10 15:16] LABS: Creatine Phosphokinase 15435 U/L (39-308)
--- NOTE | 2020-05-10 16:15 | PC.NURSE ---
Visitors reported now that patient is not able to remember them? stated he is complaining of pain on his left buttock. He was telling the and dgtrs that he fell. I told the he did not have any fall or even reported fall from patient today. I have been assisting him up in his room to the bathroom. said, It might be the fall from last Monday, same day he had a surgery. He tripped over and hit his left buttock. That might be it. stated, Can he have pain medicine? Informed , I will check if he can have pain medicine at this time. Visitors at bedside.
[2020-05-10 17:08] LABS: Glucose Point of Care 112 mg/dL (70-110)
[2020-05-10 20:26] LABS: Glucose Point of Care 136 mg/dL (70-110)
--- NOTE | 2020-05-10 22:12 | PC.NURSE ---
REPORT RECEIVED FROM OFF GOING NURSE. PT IS UP AD [facility] TO THE BATHROOM. PT HAS DISCONNECTED AND RECONNECTED IV 2X AFTER BEING EDUCATED ON THE RISKS. PT'S HAS CALLED 4X FROM SHIFT CHANGE TO 2200. PT KEEPS ASKING FOR PAIN MEDICATION, MEDICATION TO HELP SLEEP, AND OTHER MEDICATIONS. PT APPEARS TO BE SLEEPING MOST OF THE SHIFT. PT RATES PAIN 10/10. PRN VALIUM WAS GIVEN. WILL CONTINUE TO MONITOR.
--- NOTE | 2020-05-10 23:52 | PC.NURSE ---
PT'S CALLED AGAIN WANTING TO KNOW IF PT HAS GOTTEN NIGHT MEDS. PT HAS GOTTEN ALL SCHEDULED MEDS AT THIS TIME. PT C/O 07/02 BACK PAIN PRN OXYCODONE 5MG WAS GIVEN. WILL CONTINUE TO MONITOR.
[2020-05-11] MEDS: heparin 5,000 unit/mL INJ 1 mL 5000 UNIT SUBCUT (02:24)
[2020-05-11 03:33] VITALS: BP 118/69; PULSE 106; RESP 20; TEMP 36.8; O2SAT 95
--- NOTE | 2020-05-11 04:41 | PC.NURSE ---
PT WOKE UP ANGRY AND WANTS TO LEAVE AMA. DR SARAH NOTIFIED.
[2020-05-11 04:46] LABS: Basophils % 0.3 %; Eosinophils # 0.2 10^3/uL (0.0-0.8); Eosinophils % 1.8 %; Hemoglobin 12.1 g/dL (11.7-16.6); Lymphocytes # 1.6 10^3/uL (0.8-4.8); Lymphocytes % 14.9 %; Mean Corpuscular HGB Conc 30.3 g/dL (30.0-36.0); Mean Corpuscular Hemoglobin 27.3 pg (28.0-34.0); Mean Corpuscular Volume 90.3 fL (80-94); Mean Platelet Volume 10.8 fL (7.4-10.4); Monocytes # 1.3 10^3/uL (0.2-0.9); Monocytes % 12.5 %; Neutrophils # 7.39 10^3/uL (1.8-7.7); Neutrophils % 70.2 %; Nucleated Red Blood Cells % 0 %; Platelet Count 192 10^3/cmm (130-400); Red Blood Count 4.43 10^6/uL (4.1-5.3); Red Cell Distribution Width 14.6 % (12.1-15.1); White Blood Count 10.5 10^3/uL (4.0-10.0)
--- NOTE | 2020-05-11 04:49 | PM.EVENT ---
Event Note Event Note: Patient reports he would prefer to leave against medical advice. He states he is getting claustrophobic here and just wants to be with his family. He understands that he may have a potentially dangerous condition, that he was very confused on presentation without obvious cause and that he has renal failure, muscle breakdown which has been getting worse, white blood cell elevation and elevated heart rate concerning for possible infection blood clot, or other unidentified cause, that he has liver parameter elevation of unidentified reason and that him leaving now, even though he is feeling better than on admission, could lead to potentially in disabling or life threatening condition. He is able to verbalize this and reiterates that he is tired of getting poked and prodded of getting tests and blood draws and treatments and prefers to spend time with his family even if it may be detrimental to his health or life. He has had time to consider this and states has made up his mind. Denies when asked if anything we can do to make him reconsider. Understands that he can and should return to ER anytime and otherwise to follow up with primary care provider at the soonest available appointment, which he verbalizes he will do. After the initial discussion he allowed no further discussion. He got dressed, gathered his belongings and started to leave. Demanded to be shown the exit or he would start breaking things . We tried speaking with his , whom he called on his cell phone. 's number name is Zoila, number is [phone]. She understands his treatment is not complete. She states he has left against medical advice before and is frustrated, especially because they don't live close to a healthcare facility. When she tried to convince him to stay, he got upset and said he is going to stay with some friends. He would not discuss any further and once he ascertained he was in [place] started walking toward the exit. Would not respond any further or allow for any other arrangements of care.
--- NOTE | 2020-05-11 04:53 | PC.NURSE ---
DR SARAH CAME AND VISITED WITH PT. PT STILL WANTS TO LEAVE AMA. PT'S TO BE NOTIFIED. DR EDUCATED PT ON CONCERNS AND PT CONDITION. PT STATES THAT THEY ARE STILL LEAVING AMA.
[2020-05-11 04:59] LABS: Alanine Aminotransferase 84 U/L (0-41); Alkaline Phosphatase 85 IU/L (40-130); Anion Gap 14.6 (5-19); Aspartate Amino Transferase 146 U/L (0-40); Blood Urea Nitrogen 26 mg/dL (6-20); Calcium 8.7 mg/dL (8.5-10.5); Carbon Dioxide 20 mmol/L (22-29); Chloride 105 mmol/L (98-107); Globulin 4.2 g/dL (1.3-4.6); Glomerular Filtration Rate 44.2 mL/min (90-130); Glucose 107 mg/dL (65-115); Osmolality Calculated 277 mOsm/kg (285-295); Potassium 4.6 mmol/L (3.5-5.1); Sodium 135 mmol/L (136-145); Total Bilirubin 0.6 mg/dL (0.15-1.2); Total Protein 8.2 g/dL (6.6-8.7)
--- NOTE | 2020-05-11 05:16 | PC.NURSE ---
DEB PAPERS SIGNED. IV WAS DC'D. CATHETER TIP WAS INTACT. PT TOLERATED WELL. PT WALKED WITH DR TO EXIT. DR STILL TRYING TO CONVINCE PT TO STAY. PT TOOK BELONGINGS WITH HIM. DR CALLED PT'S . TALKED TO PT. ALSO WANTS PT TO STAY.
[2020-05-11 05:24] VITALS: BP 118/69; PULSE 106; RESP 20; TEMP 36.8; O2SAT 95
[2020-05-11 05:38] LABS: Creatine Phosphokinase 10684 U/L (39-308)
--- NOTE | 2020-05-11 07:00 | PC.NURSE ---
Around 0500, nurse asked Dr. Perez if patient is alert enough to leave AMA. Doctor stated yes, he is alert enough to leave.
--- NOTE | 2020-05-11 09:35 | PM.DCS ---
Discharge Providers Date of Admission: 05/09/20 22:09 Date of Discharge: May 11, 2020 Attending Provider at Admission: Archie Espinosa Attending Provider at Discharge: Meme Suero MD Consults: Nephrology Primary Care Provider: Usha López MD Diagnoses at Discharge Discharge Diagnosis (1) Acute kidney injury: Status: Acute (2) Acute metabolic encephalopathy: Status: Acute (3) Transaminitis: Status: Acute (4) Rhabdomyolysis: Status: Acute Qualifiers: Rhabdomyolysis type: non-traumatic Qualified Code(s): M62.82 - Rhabdomyolysis (5) Hypertension: Status: Chronic Qualifiers: Hypertension type: essential hypertension Qualified Code(s): I10 - Essential (primary) hypertension (6) GERD (gastroesophageal reflux disease): Status: Chronic Qualifiers: Esophagitis presence: without esophagitis Qualified Code(s): K21.9 - Gastro-esophageal reflux disease without esophagitis (7) Hyperlipidemia: Status: Chronic Qualifiers: Hyperlipidemia type: mixed hyperlipidemia Qualified Code(s): E78.2 - Mixed hyperlipidemia (8) Type 2 diabetes mellitus with hyperglycemia: Status: Chronic Problem details: Unable to tolerate higher doses of metformin Qualifiers: 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: without 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 operator intermodal yard use Qualified Code(s): E11.65 - Type 2 diabetes mellitus with hyperglycemia (9) Carpal tunnel syndrome: Status: Acute Qualifiers: Laterality: left Qualified Code(s): G56.02 - Carpal tunnel syndrome, left upper limb (10) Hematuria: Status: Acute Qualifiers: Hematuria type: other microscopic Qualified Code(s): R31.29 - Other microscopic hematuria (11) Tobacco use: Status: Chronic Reason for Visit Reason for Visit: NOT ACTING APPROPRIATELY Hospital Course Hospital Course: Patient was initially admitted to cardiac stepdown unit and started on IV fluid hydration secondary to noted acute renal impairment and rhabdomyolysis. He had initially been noted to have altered mental status likely multifactorial as previously documented. Patient's mental status did improve and despite extensive discussion of medical issues with him directly as well as with his family he opted to leave AMA earlier this morning. He is at high risk for readmission and decompensation. Physical Exam Narrative: EXAM NARRATIVE: -Physical exam not done by provider as patient left AMA earlier this AM Discharge Data Data Completed and Pending: Completed Studies During Hospitalization Category Date Time Status CT abdomen pelvis wo con [id number] Stat Cat Scan 05/09/20 22:[address] head wo con* 7 0450 Stat Cat Scan 05/09/20 21:02 Completed XR chest 1V so ble 15370 Stat Exams 05/09/20 21:01 Completed Pending at discharge Category Date Time Status Blood Culture Sta t Lab 05/09/20 09:55 Results CDIFF [Clostridio ides Difficile PCR ] Routine Lab 05/10/20 17:00 Received CK AND CKMB Routi ne Lab 05/09/20 21:13 Results Hepatitis C RNA V iral Load Qnt AM L ABS Lab 05/11/20 04:25 Received Urine Culture Sta t Lab 05/09/20 22:00 Received Labs from last 24 hours 05/11/20 05/11/20 05/10/20 04:25 04:25 20:18 WBC 10.5 H RBC 4.43 Hgb 12.1 Hct 40.0 L MCV 90.3 MCH 27.3 L MCHC 30.3 RDW 14.6 Plt Count 192 MPV 10.8 H Neut % (Auto) 70.2 Lymph % (Auto) 14.9 [place] % (Auto) 12.5 Eos % (Auto) 1.8 Baso % (Auto) 0.3 Neut # (Auto) 7.39 Lymph # (Auto) 1.6 [place] # (Auto) 1.3 H Eos # (Auto) 0.2 Baso # (Auto) 0.0 Nucleated RBC % (a uto) 0 Nucleated RBCs # 0.0 Sodium 135 L Potassium 4.6 Chloride 105 Carbon Dioxide 20 L Anion Gap 14.6 BUN 26 H Creatinine 1.7 H GFR Calculation 44.2 L Glucose 107 POC Glucose 136 Calculated Osmolal ity 277 L Calcium 8.7 Total Bilirubin 0.6 AST 146 H ALT 84 H Alkaline Phosphata se 85 Creatine Kinase 14486 H* Total Protein 8.2 Albumin 4.0 Globulin 4.2 05/10/20 05/10/20 05/10/20 17:01 13:30 11:58 WBC RBC Hgb Hct MCV MCH MCHC RDW Plt Count MPV Neut % (Auto) Lymph % (Auto) [place] % (Auto) Eos % (Auto) Baso % (Auto) Neut # (Auto) Lymph # (Auto) [place] # (Auto) Eos # (Auto) Baso # (Auto) Nucleated RBC % (a uto) Nucleated RBCs # Sodium Potassium Chloride Carbon Dioxide Anion Gap BUN Creatinine GFR Calculation Glucose POC Glucose 112 107 Calculated Osmolal ity Calcium Total Bilirubin AST ALT Alkaline Phosphata se Creatine Kinase 37189 H* Total Protein Albumin Globulin 05/10/20 05/10/20 09:55 09:55 WBC 15.0 H RBC 4.23 Hgb 11.6 L Hct 38.9 L MCV 92.0 MCH 27.4 L MCHC 29.8 L RDW 14.6 Plt Count 168 MPV 10.2 Neut % (Auto) 79.8 Lymph % (Auto) 7.7 [place] % (Auto) 10.5 Eos % (Auto) 1.4 Baso % (Auto) 0.2 Neut # (Auto) 11.96 H Lymph # (Auto) 1.2 [place] # (Auto) 1.6 H Eos # (Auto) 0.2 Baso # (Auto) 0.0 Nucleated RBC % (a uto) 0 Nucleated RBCs # 0.0 Sodium 138 Potassium 4.8 Chloride 105 Carbon Dioxide 22 Anion Gap 15.8 BUN 35 H Creatinine 3.7 H GFR Calculation 18.0 L Glucose 169 H POC Glucose Calculated Osmolal ity 287 Calcium 8.7 Total Bilirubin 0.5 AST 139 H ALT 83 H Alkaline Phosphata se 76 Creatine Kinase Total Protein 7.0 Albumin 4.1 Globulin 2.9 Vitals: Last Vital Signs Temp 98.3 F 05/11/20 05:24 Pulse 106 H 05/11/20 05:24 Resp 20 H 05/11/20 05:24 BP 118/69 05/11/20 05:24 Pulse Ox 95 05/11/20 05:24 Discharge Plan Discharge Patient Disposition: Left Against Medical Advice Condition: Stable Prescriptions: No Action dicyclomine 10 mg capsule 10 mg PO QID PRN (Reason: abdominal discomfort) 30 Days Qty: 60 RF: 2 (DME) Comfort EZ Pen [place] 32 gauge x 5/16 needle See Rx Instructions .ROUTE .MEDSUPPLY Qty: 100 RF: 11 lovastatin 20 mg tablet 20 mg PO QDAY 30 Days Qty: 30 RF: 11 Lantus Solostar U-100 Insulin 100 unit/mL (3 mL) insulin pen 20 unit SUBCUT DAILY 30 Days Qty: 6 RF: 2 metformin 500 mg tablet extended release 24 hr 500 mg PO QDAY 30 Days Qty: 30 RF: 2 lisinopril 5 mg tablet 5 mg PO QDAY 30 Days Qty: 30 RF: 2 albuterol sulfate [ProAir HFA] 90 mcg/actuation HFA aerosol inhaler 1 - 2 puff INHALATION Q6H PRN (Reason: shortness of breath or wheezing) 30 Days Qty: 18 RF: 2 cyclobenzaprine 10 mg tablet 10 mg PO TID PRN (Reason: muscle spasm) 30 Days Qty: 90 RF: 2 gabapentin 400 mg capsule 400 mg PO DAILY RF: 0 omeprazole 20 mg Capsule,Delayed Release(Dr/Ec) 20 mg PO DAILY RF: 0 mirtazapine 15 mg Tablet 15 mg PO DAILY RF: 0 diazepam 10 mg Tablet 10 mg PO TID PRN (Reason: Anxiety) RF: 0 risperidone 1 mg Tablet 1 mg PO BEDTIME RF: 0 quetiapine 50 mg Tablet 100 mg PO BEDTIME RF: 0 oxycodone 10 mg Tablet 10 mg PO Q6H PRN (Reason: Pain) RF: 0 vilazodone 40 mg Tablet 40 mg PO DAILY RF: 0 metoprolol succinate 50 mg Capsule,Sprinkle,Er 24hr 50 mg PO DAILY RF: 0 Referrals: Usha López MD [Primary Care Provider] - Discharge Date/Time: 05/11/20 05:27 Discharge Attestations Time Spent in Discharge Care*: less than 30 min Quality Metrics Clinical Quality Measures During this hospital stay, did patient experience: None Coding Level of Care Code Acute Operator Vacuum for g Fwd Diagnoses Acute kidney injury N17.9 Acute metabolic encephalopathy G93.41 Transaminitis R74.0 Rhabdomyolysis M62.82 Rhabdomyolysis type: non-traumatic Hypertension I10 Hypertension type: essential hypertension GERD (gastroesophageal reflux disease) K21.9 Esophagitis presence: without esophagitis Hyperlipidemia E78.2 Hyperlipidemia type: mixed hyperlipidemia Type 2 diabetes mellitus with hyperglycemia E11.65 Diabetes mellitus intermediate insulin use: without intermediate use Carpal tunnel syndrome G56.02 Laterality: left Hematuria R31.29 Hematuria type: other microscopic Tobacco use Z72.0
[2020-05-11 20:18] LABS: CKMB 30.5 ng/mL (0-10.4)
[2020-05-13 15:55] LABS: HEP C RNA Viral Load Quant 5.76 Log IU/mL (NOT DETECTED); HEP C RNA Viral Load Quant 569000 IU/mL (NOT DETECTED)
== END 2020-05-11 05:27 | disposition left against medical advice (07) | DRG 682 ==
LOC: ER 21:44 → ICU 22:27 → CSU 23:01
PROVIDERS: Internal Medicine; Admitting Provider Internal Medicine; Emergency Provider Family Medicine; PCP Family Medicine; Visit Provider Family Medicine
DX: N17.9 Acute kidney failure, unspecified (principal); G93.41 Metabolic encephalopathy; M62.82 Rhabdomyolysis; K21.9 Gastro-esophageal reflux disease without esophagitis; E78.5 Hyperlipidemia, unspecified; Z53.29 Procedure and treatment not carried out because of patient's decision for other reasons; E11.65 Type 2 diabetes mellitus with hyperglycemia; G56.02 Carpal tunnel syndrome, left upper limb; R31.29 Other microscopic hematuria; F17.210 Nicotine dependence, cigarettes, uncomplicated; G89.4 Chronic pain syndrome; F98.8 Other specified behavioral and emotional disorders with onset usually occurring in childhood and adolescence; I10 Essential (primary) hypertension
CPT/HCPCS: 12345; 36415; 36416; 36600; 70450; 71045; 74176; 76705; 78014; 80051; 80053; 80074; 80306; 80307; 81001; 81003; 82550; 82553; 82570; 82810; 82962; 83605; 83690; 83735; 83986; 84300; 84443; 84484; 85025; 85378; 85610; 85730; 87040; 87086; 87493; 87522; 87635; 93005; 93306; 96372; 99283; 99284; A9540; A9567; J1644; J1650; J1815 ×2; J2310; J2704; J3490; J7030

== ENCOUNTER 2020-05-11 08:14 | Inpatient (IN) | payer MEDICARE, MEDICAID, SELFPAY ==
[2020-05-11] VITALS (10 sets, daily range): BP systolic 125–171; BP diastolic 75–86; PULSE 59–120; RESP 16–20; TEMP 36.8–37.7; O2SAT 95–98; BMI 28.8
--- NOTE | 2020-05-11 08:30 | ED_ITS ---
Documented by User: ALLIE Ray 05/11/20 09:50 HPI - General Adult General: Chief complaint: GI Bleed Stated complaint: SPITTING UP BLOOD Time Seen by Provider: 05/11/20 08:15 Source: patient Mode of arrival: EMS Limitations: no limitations History of Present Illness: HPI narrative: Patient is a 44-year-old male who presents to ED today stating that his convinced him to come back to the hospital and be readmitted for further evaluation. Patient was recently admitted to the hospital but left AMA earlier this morning. He tells me he had an episode of fight or flight and had to leave the hospital immediately. Patient was admitted on 05/09 with diagnoses of acute hypercapnic respiratory failure, altered mental status/acute metabolic encephalopathy, acute kidney injury, elevated LFTs, and rhabdomyolysis. Patient tells me he has no physical complaints currently other than a headache and attributes that to the fact that he has been outside all day. Patient apparently told silk screen etcher that he has been coughing up blood. He denies chest pain, shortness of breath, abdominal pain at this time. Associated symptoms: Reports headache(s); Deny chest pain, dyspnea, malaise, nausea, rash, palpitations, syncope or vomiting Review of Systems Const: Denies: fever(s), chills, body aches, fatigue or malaise Eyes: Denies: change in vision, blurry vision, blind spots, photophobia, floaters or seeing flashes ENMT: Denies: odynophagia Card: Denies: chest pain, palpitations, irregular heart rhythm, edema, swelling of feet/ankles, lightheadedness, syncope, pre-syncope, dyspnea on exertion, orthopnea or leg pain with exertion Resp: Reports: hemoptysis (told RN this in triage ); Denies: dyspnea, wheezing, pain on inspiration or chest congestion GI: Denies: abdominal pain, nausea, vomiting, hematemesis, coffee ground emesis, dysphagia, heartburn or diarrhea : Denies: difficulty urinating or dysuria Musc: Denies: neck pain, back pain or joint pain Skin/Breast: Denies: rash Neuro: Reports: headache(s); Denies: numbness in extremities, weakness in extremities, sensory changes, lack of coordination, difficulty walking or dizziness [facility] ED PFSH: Medical History ADD (attention deficit disorder) Carpal tunnel syndrome Chest pain Chronic pain syndrome GERD (gastroesophageal reflux disease) Hematuria Hyperlipidemia Hypertension Irritable bowel syndrome Peptic ulcer disease Tobacco use Type 2 diabetes mellitus Type 2 diabetes mellitus with hyperglycemia Unable to tolerate higher doses of metformin Surgical History H/O neck surgery H/O wrist surgery R History of back surgery History of carpal tunnel surgery L Family History Family/Other No problems noted. Other Adopted Social History Smoking and tobacco status: current every day smoker cigarettes Packs smoked per day: 0.5 [ Other cigarette details: Says has been cutting down ] and smokeless tobacco Quit status (tobacco): considering quitting Second hand smoke exposure: Yes Smoking risk assessment/counseling performed?: No Alcohol intake: current Alcohol intake frequency: holidays/special occasions only Alcohol type: hard liquor Desire information about alcohol rehabilitation?: No Lives independently: Yes Household members: spouse Marital status: Current occupational status: unemployed Current gender identity: Male Physical Exam Const: COMMON NORMALS: no acute distress, patient oriented x3, no limitations and alert ORIENTATION/CONSCIOUSNESS: Yes oriented to person, Yes oriented to place and Yes oriented to time HENMT: COMMON NORMALS: normocephalic and atraumatic HEAD & SCALP: normocephalic and atraumatic Resp: COMMON NORMALS: normal respiratory effort and clear to auscultation bilaterally AUSCULTATION: clear to auscultation bilaterally Cardio: COMMON NORMALS: regular rhythm RATE: tachycardic RHYTHM: regular rhythm GI: COMMON NORMALS: Normal to inspection, nondistended, normoactive bowel sounds present, Soft to palpation, non-tender, No hepatosplenomegaly present and no masses INSPECTION: Yes other (small areas of ecchymosis from SQ insulin injections ) PALPATION: Yes Soft to palpation and Yes No hepatosplenomegaly present Extremity: COMMON NORMALS: normal to inspection GENERAL: Yes normal exam except as noted OTHER: sutures to L wrist/hand from recent carpal tunnel surgery look clean Neuro: MERLIN COMA SCALE: document GCS findings Merlin coma scale eye opening: Spontaneous [place] coma scale verbal response: Orientated [place] coma scale motor response: Obey commands Merlin coma scale total score: 15 COMMON NORMALS: patient oriented x3, moves all extremities, no focal motor deficits, no sensory deficits noted and gait normal SENSORIUM/ORIENTATION: Yes alert, Yes oriented to person, Yes oriented to place and Yes oriented to time Skin: COMMON NORMALS: no rashes or lesions noted GENERAL SKIN EXAM: no rashes or lesions noted Course Vital Signs: Vital signs: Vital Signs Temperature 98.2 F 05/11/20 16:48 Pulse Rate 59 L 05/11/20 16:48 Respiratory Rate 20 H 05/11/20 16:48 Blood Pressure 171/86 05/11/20 16:48 Pulse Oximetry 95 05/11/20 16:48 MDM - General Adult MDM Narrative: Medical decision making narrative: I have spoken to Dr. Temple who spoke to Dr. Pritchard for re-admission. Lab Data: Labs: Lab Results 05/11/20 05/11/20 05/11/20 Range/Units 08:27 08:27 08:27 WBC 9.5 (4.0-10.0) 10^3/ uL RBC 4.57 (4.1-5.3) 10^6/u L Hgb 12.6 (11.7-16.6) g/dL Hct 41.1 L (42.0-52.0) % MCV 89.9 (80-94) fL MCH 27.6 L (28.0-34.0) pg MCHC 30.7 (30.0-36.0) g/dL RDW 14.6 (12.1-15.1) % Plt Count 184 (130-400) 10^3/c mm MPV 10.5 H (7.4-10.4) fL Neut % (Auto) 67.1 % Lymph % (Auto) 17.6 % [place] % (Auto) 12.5 % Eos % (Auto) 2.1 % Baso % (Auto) 0.4 % Neut # (Auto) 6.39 (1.8-7.7) 10^3/u L Lymph # (Auto) 1.7 (0.8-4.8) 10^3/u L [place] # (Auto) 1.2 H (0.2-0.9) 10^3/u L Eos # (Auto) 0.2 (0.0-0.8) 10^3/u L Baso # (Auto) 0.0 (0.0-0.1) 10^3/u L Nucleated RBC % (a uto) 0 % Nucleated RBCs # 0.0 /100WBC PT (10.5-13.3) SECO NDS INR (0.8-1.2) APTT (23.9-36.7) SECO NDS D-Dimer (0-0.59) ug/mIFE U Sodium 134 L (136-145) mmol/L Potassium 4.2 (3.5-5.1) mmol/L Chloride 104 (98-107) mmol/L Carbon Dioxide 19 L (22-29) mmol/L Anion Gap 15.2 (5-19) BUN 25 H (6-20) mg/dL Creatinine 1.6 H (0.7-1.2) mg/dL GFR Calculation 47.4 L (90-130) mL/min Glucose 122 H (65-115) mg/dL Calculated Osmolal ity 276 L (285-295) mOsm/k g Lactic Acid 1.1 (0.5-2.2) mmol/L Calcium 9.1 (8.5-10.5) mg/dL Total Bilirubin 0.8 (0.15-1.2) mg/dL AST 141 H (0-40) U/L ALT 82 H (0-41) U/L Alkaline Phosphata se 76 (40-130) IU/L Creatine Kinase 29922 H* (39-308) U/L CK-MB (CK-2) (0-10.4) ng/mL Total Protein 7.8 (6.6-8.7) g/dL Albumin 4.3 (3.5-5.2) g/dL Globulin 3.5 (1.3-4.6) g/dL Lipase (13-60) U/L Urine Color (Yellow) Urine Appearance (CLEAR) Urine pH (5-7) Ur Specific Gravit y (1.005-1.030) Urine Protein (Negative) Urine Glucose (UA) (Normal) Urine Ketones (Negative) Urine Blood (Negative) Urine Nitrate (Negative) Urine Bilirubin (NEGATIVE) Urine Urobilinogen (Negative) mg/dL Ur Leukocyte Carmen ase (Negative) Urine Opiates Scre en (Negative) ng/mL Ur Barbiturates Sc reen (Negative) ng/mL Ur Phencyclidine S crn (Negative) ng/mL Ur Amphetamines Sc reen (Negative) ng/mL U Benzodiazepines Scrn (Negative) ng/mL Urine Cocaine Scre en (Negative) ng/mL U Marijuana (THC) Screen (Negative) ng/mL Ethyl Alcohol (0-10) mg/dL 05/11/20 05/11/20 05/11/20 Range/Units 08:27 08:27 08:27 WBC (4.0-10.0) 10^3/ uL RBC (4.1-5.3) 10^6/u L Hgb (11.7-16.6) g/dL Hct (42.0-52.0) % MCV (80-94) fL MCH (28.0-34.0) pg MCHC (30.0-36.0) g/dL RDW (12.1-15.1) % Plt Count (130-400) 10^3/c mm MPV (7.4-10.4) fL Neut % (Auto) % Lymph % (Auto) % [place] % (Auto) % Eos % (Auto) % Baso % (Auto) % Neut # (Auto) (1.8-7.7) 10^3/u L Lymph # (Auto) (0.8-4.8) 10^3/u L [place] # (Auto) (0.2-0.9) 10^3/u L Eos # (Auto) (0.0-0.8) 10^3/u L Baso # (Auto) (0.0-0.1) 10^3/u L Nucleated RBC % (a uto) % Nucleated RBCs # /100WBC PT 13.60 H (10.5-13.3) SECO NDS INR 1.01 (0.8-1.2) APTT 29.9 (23.9-36.7) SECO NDS D-Dimer (0-0.59) ug/mIFE U Sodium (136-145) mmol/L Potassium (3.5-5.1) mmol/L Chloride (98-107) mmol/L Carbon Dioxide (22-29) mmol/L Anion Gap (5-19) BUN (6-20) mg/dL Creatinine (0.7-1.2) mg/dL GFR Calculation (90-130) mL/min Glucose (65-115) mg/dL Calculated Osmolal ity (285-295) mOsm/k g Lactic Acid (0.5-2.2) mmol/L Calcium (8.5-10.5) mg/dL Total Bilirubin (0.15-1.2) mg/dL AST (0-40) U/L ALT (0-41) U/L Alkaline Phosphata se (40-130) IU/L Creatine Kinase (39-308) U/L CK-MB (CK-2) 12.0 H (0-10.4) ng/mL Total Protein (6.6-8.7) g/dL Albumin (3.5-5.2) g/dL Globulin (1.3-4.6) g/dL Lipase (13-60) U/L Urine Color (Yellow) Urine Appearance (CLEAR) Urine pH (5-7) Ur Specific Gravit y (1.005-1.030) Urine Protein (Negative) Urine Glucose (UA) (Normal) Urine Ketones (Negative) Urine Blood (Negative) Urine Nitrate (Negative) Urine Bilirubin (NEGATIVE) Urine Urobilinogen (Negative) mg/dL Ur Leukocyte Carmen ase (Negative) Urine Opiates Scre en (Negative) ng/mL Ur Barbiturates Sc reen (Negative) ng/mL Ur Phencyclidine S crn (Negative) ng/mL Ur Amphetamines Sc reen (Negative) ng/mL U Benzodiazepines Scrn (Negative) ng/mL Urine Cocaine Scre en (Negative) ng/mL U Marijuana (THC) Screen (Negative) ng/mL Ethyl Alcohol < 10 (0-10) mg/dL 05/11/20 05/11/20 05/11/20 Range/Units 08:27 08:27 09:55 WBC (4.0-10.0) 10^3/ uL RBC (4.1-5.3) 10^6/u L Hgb (11.7-16.6) g/dL Hct (42.0-52.0) % MCV (80-94) fL MCH (28.0-34.0) pg MCHC (30.0-36.0) g/dL RDW (12.1-15.1) % Plt Count (130-400) 10^3/c mm MPV (7.4-10.4) fL Neut % (Auto) % Lymph % (Auto) % [place] % (Auto) % Eos % (Auto) % Baso % (Auto) % Neut # (Auto) (1.8-7.7) 10^3/u L Lymph # (Auto) (0.8-4.8) 10^3/u L [place] # (Auto) (0.2-0.9) 10^3/u L Eos # (Auto) (0.0-0.8) 10^3/u L Baso # (Auto) (0.0-0.1) 10^3/u L Nucleated RBC % (a uto) % Nucleated RBCs # /100WBC PT (10.5-13.3) SECO NDS INR (0.8-1.2) APTT (23.9-36.7) SECO NDS D-Dimer 1.04 H (0-0.59) ug/mIFE U Sodium (136-145) mmol/L Potassium (3.5-5.1) mmol/L Chloride (98-107) mmol/L Carbon Dioxide (22-29) mmol/L Anion Gap (5-19) BUN (6-20) mg/dL Creatinine (0.7-1.2) mg/dL GFR Calculation (90-130) mL/min Glucose (65-115) mg/dL Calculated Osmolal ity (285-295) mOsm/k g Lactic Acid (0.5-2.2) mmol/L Calcium (8.5-10.5) mg/dL Total Bilirubin (0.15-1.2) mg/dL AST (0-40) U/L ALT (0-41) U/L Alkaline Phosphata se (40-130) IU/L Creatine Kinase (39-308) U/L CK-MB (CK-2) (0-10.4) ng/mL Total Protein (6.6-8.7) g/dL Albumin (3.5-5.2) g/dL Globulin (1.3-4.6) g/dL Lipase 15 (13-60) U/L Urine Color Yellow (Yellow) Urine Appearance Clear (CLEAR) Urine pH 5 (5-7) Ur Specific Gravit y 1.030 (1.005-1.030) Urine Protein Neg (Negative) Urine Glucose (UA) 4+ H (Normal) Urine Ketones 1+ H (Negative) Urine Blood Neg (Negative) Urine Nitrate Negative (Negative) Urine Bilirubin Neg (NEGATIVE) Urine Urobilinogen Norm (Negative) mg/dL Ur Leukocyte Carmen ase Negative (Negative) Urine Opiates Scre en (Negative) ng/mL Ur Barbiturates Sc reen (Negative) ng/mL Ur Phencyclidine S crn (Negative) ng/mL Ur Amphetamines Sc reen (Negative) ng/mL U Benzodiazepines Scrn (Negative) ng/mL Urine Cocaine Scre en (Negative) ng/mL U Marijuana (THC) Screen (Negative) ng/mL Ethyl Alcohol (0-10) mg/dL 0720/20 Range/Units 09:55 WBC (4.0-10.0) 10^3/ uL RBC (4.1-5.3) 10^6/u L Hgb (11.7-16.6) g/dL Hct (42.0-52.0) % MCV (80-94) fL MCH (28.0-34.0) pg MCHC (30.0-36.0) g/dL RDW (12.1-15.1) % Plt Count (130-400) 10^3/c mm MPV (7.4-10.4) fL Neut % (Auto) % Lymph % (Auto) % [place] % (Auto) % Eos % (Auto) % Baso % (Auto) % Neut # (Auto) (1.8-7.7) 10^3/u L Lymph # (Auto) (0.8-4.8) 10^3/u L [place] # (Auto) (0.2-0.9) 10^3/u L Eos # (Auto) (0.0-0.8) 10^3/u L Baso # (Auto) (0.0-0.1) 10^3/u L Nucleated RBC % (a uto) % Nucleated RBCs # /100WBC PT (10.5-13.3) SECO NDS INR (0.8-1.2) APTT (23.9-36.7) SECO NDS D-Dimer (0-0.59) ug/mIFE U Sodium (136-145) mmol/L Potassium (3.5-5.1) mmol/L Chloride (98-107) mmol/L Carbon Dioxide (22-29) mmol/L Anion Gap (5-19) BUN (6-20) mg/dL Creatinine (0.7-1.2) mg/dL GFR Calculation (90-130) mL/min Glucose (65-115) mg/dL Calculated Osmolal ity (285-295) mOsm/k g Lactic Acid (0.5-2.2) mmol/L Calcium (8.5-10.5) mg/dL Total Bilirubin (0.15-1.2) mg/dL AST (0-40) U/L ALT (0-41) U/L Alkaline Phosphata se (40-130) IU/L Creatine Kinase (39-308) U/L CK-MB (CK-2) (0-10.4) ng/mL Total Protein (6.6-8.7) g/dL Albumin (3.5-5.2) g/dL Globulin (1.3-4.6) g/dL Lipase (13-60) U/L Urine Color (Yellow) Urine Appearance (CLEAR) Urine pH (5-7) Ur Specific Gravit y (1.005-1.030) Urine Protein (Negative) Urine Glucose (UA) (Normal) Urine Ketones (Negative) Urine Blood (Negative) Urine Nitrate (Negative) Urine Bilirubin (NEGATIVE) Urine Urobilinogen (Negative) mg/dL Ur Leukocyte Carmen ase (Negative) Urine Opiates Scre en Negative (Negative) ng/mL Ur Barbiturates Sc reen Negative (Negative) ng/mL Ur Phencyclidine S crn Negative (Negative) ng/mL Ur Amphetamines Sc reen Negative (Negative) ng/mL U Benzodiazepines Scrn Positive H (Negative) ng/mL Urine Cocaine Scre en Negative (Negative) ng/mL U Marijuana (THC) Screen Negative (Negative) ng/mL Ethyl Alcohol (0-10) mg/dL EKG Data^: EKG 1: EKG interpretation date: 05/11/20 EKG interpretation time: 08:57 Interpretation: Sinus tachycardia Rate [address] elevation or depression changes noted Computer generated interpretation: Chest X-Ray 05/11/20 09:55 IMPRESSION: Continued mild pulmonary congestion. No pneumonia. Gallbladder Ultrasound 05/11/20 10:38 IMPRESSION: 1. Mildly contracted gallbladder with no stones. Probably nonfasting bases. 2. No bile duct dilatation. 3. Mild hepatomegaly. Pulmonary Perfusion Imaging 05/11/20 12:07 IMPRESSION: Low probability pulmonary embolism. Discharge Plan Discharge Patient Disposition: Admitted As Inpatient Admit Provider: Gege Pritchard Clinical Impression: Acute kidney injury, Transaminitis, Rhabdomyolysis, Tachycardia Condition: Fair Referrals: Usha López MD [Primary Care Provider] - Additional Instructions: No prescriptions, follow-up recommendations, diet or activity recommendations were able to be for provided to patient due to him becoming agitated and leaving the hospital AGAINST MEDICAL ADVICE Patient was admitted to the hospital and left AGAINST MEDICAL ADVICE twice in 1 day. Risk of leaving AGAINST MEDICAL ADVICE were explained to patient Discharge Date/Time: 05/11/20 11:50 Coding Level of Care Code ED Admin Assistant for Chg Fwd Exam Comprehensive Documented by User: Loyd Temple DO 05/12/20 08:46 HPI - General Adult General: Chief complaint: GI Bleed Stated complaint: SPITTING UP BLOOD Time Seen by Provider: 05/11/20 08:15 History of Present Illness: HPI narrative: 44-year-old male admitted few days ago with acute hypercapnic respiratory failure altered mental status and acute kidney injury. He also began to show evidence of an upper GI bleed he was scheduled for an EGD this morning in the early hours of this morning he decided to leave AMA his convinced him to return and be readmitted. He is initially seen by our midlevel Morenita Mclaughlin. Associated symptoms: Deny chest pain, dyspnea, malaise, nausea, rash or vomiting Review of Systems Const: Denies: fever(s), chills, body aches, change in appetite, fatigue or malaise ENMT: Denies: throat pain, ear or mastoid pain, nasal discharge or nasal congestion Card: Denies: chest pain, edema, dyspnea on exertion or orthopnea Resp: Reports: productive cough and hemoptysis; Denies: dyspnea or non-productive cough GI: Denies: abdominal pain, nausea, vomiting, hematemesis, coffee ground emesis, diarrhea, constipation, bloating, hematochezia or melena : Denies: flank pain, dysuria, urinary frequency or urinary urgency Skin/Breast: Denies: rash or pruritus PFSH ED PFSH: Medical History ADD (attention deficit disorder) Carpal tunnel syndrome Chest pain Chronic pain syndrome GERD (gastroesophageal reflux disease) Hematuria Hyperlipidemia Hypertension Irritable bowel syndrome Peptic ulcer disease Tobacco use Type 2 diabetes mellitus Type 2 diabetes mellitus with hyperglycemia Unable to tolerate higher doses of metformin Surgical History H/O neck surgery H/O wrist surgery R History of back surgery History of carpal tunnel surgery L Family History Family/Other No problems noted. Other Adopted Social History Smoking and tobacco status: current every day smoker cigarettes Packs smoked per day: 0.5 [ Other cigarette details: Says has been cutting down ] and smokeless tobacco Quit status (tobacco): considering quitting Second hand smoke exposure: Yes Smoking risk assessment/counseling performed?: No Alcohol intake: current Alcohol intake frequency: holidays/special occasions only Alcohol type: hard liquor Desire information about alcohol rehabilitation?: No Lives independently: Yes Household members: spouse Marital status: Current occupational status: unemployed Current gender identity: Male Physical Exam Const: COMMON NORMALS: no acute distress GENERAL APPEARANCE: cooperative and comfortable ORIENTATION/CONSCIOUSNESS: Yes awake, Yes oriented to person, Yes oriented to place and Yes oriented to time Neck/C-Spine: COMMON NORMALS: no JVD Resp: COMMON NORMALS: normal respiratory effort, No retractions, No use of accessory muscles and clear to auscultation bilaterally AUSCULTATION: clear to auscultation bilaterally Cardio: COMMON NORMALS: no JVD, regular rate, regular rhythm and No murmurs present (Cardio) RATE: regular rate RHYTHM: regular rhythm GI: COMMON NORMALS: Soft to palpation and No hepatosplenomegaly present AUSCULTATION: Yes normoactive bowel sounds PALPATION: Yes Soft to palpation, No Tenderness to palpation present (GI), No Guarding due to palpation present (GI) and Yes No hepatosplenomegaly present Extremity: COMMON NORMALS: normal to inspection, capillary refill normal, no clubbing, cyanosis or edema, no calf tenderness and no pedal edema Neuro: SENSORIUM/ORIENTATION: Yes oriented to person, Yes oriented to place and Yes oriented to time Skin: COMMON NORMALS: no rashes or lesions noted GENERAL SKIN EXAM: no rashes or lesions noted Course Vital Signs: Vital signs: Vital Signs Temperature 98.2 F 05/11/20 16:48 Pulse Rate 59 L 05/11/20 16:48 Respiratory Rate 20 H 05/11/20 16:48 Blood Pressure 171/86 05/11/20 16:48 Pulse Oximetry 95 05/11/20 16:48 MDM - General Adult MDM Narrative: Medical decision making narrative: Reviewed chart with the patient when seen in patient as well he was discharged AMA just a few hours ago returns now willing to be admitted. HPI patient refers care of at that time he had hypercapnic respiratory failure his kidney function is improved significantly is not back down to his normal baseline yet he did have some episodes of vomiting streaks of blood he was scheduled for an EGD this morning evidently. Discussed with Dr. Pritchard she will readmit the patient. Lab Data: Labs: Lab Results 05/11/20 05/11/20 05/11/20 Range/Units 08:27 08:27 08:27 WBC 9.5 (4.0-10.0) 10^3/ uL RBC 4.57 (4.1-5.3) 10^6/u L Hgb 12.6 (11.7-16.6) g/dL Hct 41.1 L (42.0-52.0) % MCV 89.9 (80-94) fL MCH 27.6 L (28.0-34.0) pg MCHC 30.7 (30.0-36.0) g/dL RDW 14.6 (12.1-15.1) % Plt Count 184 (130-400) 10^3/c mm MPV 10.5 H (7.4-10.4) fL Neut % (Auto) 67.1 % Lymph % (Auto) 17.6 % [place] % (Auto) 12.5 % Eos % (Auto) 2.1 % Baso % (Auto) 0.4 % Neut # (Auto) 6.39 (1.8-7.7) 10^3/u L Lymph # (Auto) 1.7 (0.8-4.8) 10^3/u L [place] # (Auto) 1.2 H (0.2-0.9) 10^3/u L Eos # (Auto) 0.2 (0.0-0.8) 10^3/u L Baso # (Auto) 0.0 (0.0-0.1) 10^3/u L Nucleated RBC % (a uto) 0 % Nucleated RBCs # 0.0 /100WBC PT (10.5-13.3) SECO NDS INR (0.8-1.2) APTT (23.9-36.7) SECO NDS D-Dimer (0-0.59) ug/mIFE U Sodium 134 L (136-145) mmol/L Potassium 4.2 (3.5-5.1) mmol/L Chloride 104 (98-107) mmol/L Carbon Dioxide 19 L (22-29) mmol/L Anion Gap 15.2 (5-19) BUN 25 H (6-20) mg/dL Creatinine 1.6 H (0.7-1.2) mg/dL GFR Calculation 47.4 L (90-130) mL/min Glucose 122 H (65-115) mg/dL Calculated Osmolal ity 276 L (285-295) mOsm/k g Lactic Acid 1.1 (0.5-2.2) mmol/L Calcium 9.1 (8.5-10.5) mg/dL Total Bilirubin 0.8 (0.15-1.2) mg/dL AST 141 H (0-40) U/L ALT 82 H (0-41) U/L Alkaline Phosphata se 76 (40-130) IU/L Creatine Kinase 88998 H* (39-308) U/L CK-MB (CK-2) (0-10.4) ng/mL Total Protein 7.8 (6.6-8.7) g/dL Albumin 4.3 (3.5-5.2) g/dL Globulin 3.5 (1.3-4.6) g/dL Lipase (13-60) U/L Urine Color (Yellow) Urine Appearance (CLEAR) Urine pH (5-7) Ur Specific Gravit y (1.005-1.030) Urine Protein (Negative) Urine Glucose (UA) (Normal) Urine Ketones (Negative) Urine Blood (Negative) Urine Nitrate (Negative) Urine Bilirubin (NEGATIVE) Urine Urobilinogen (Negative) mg/dL Ur Leukocyte Carmen ase (Negative) Urine Opiates Scre en (Negative) ng/mL Ur Barbiturates Sc reen (Negative) ng/mL Ur Phencyclidine S crn (Negative) ng/mL Ur Amphetamines Sc reen (Negative) ng/mL U Benzodiazepines Scrn (Negative) ng/mL Urine Cocaine Scre en (Negative) ng/mL U Marijuana (THC) Screen (Negative) ng/mL Ethyl Alcohol (0-10) mg/dL 05/11/20 05/11/20 05/11/20 Range/Units 08:27 08:27 08:27 WBC (4.0-10.0) 10^3/ uL RBC (4.1-5.3) 10^6/u L Hgb (11.7-16.6) g/dL Hct (42.0-52.0) % MCV (80-94) fL MCH (28.0-34.0) pg MCHC (30.0-36.0) g/dL RDW (12.1-15.1) % Plt Count (130-400) 10^3/c mm MPV (7.4-10.4) fL Neut % (Auto) % Lymph % (Auto) % [place] % (Auto) % Eos % (Auto) % Baso % (Auto) % Neut # (Auto) (1.8-7.7) 10^3/u L Lymph # (Auto) (0.8-4.8) 10^3/u L [place] # (Auto) (0.2-0.9) 10^3/u L Eos # (Auto) (0.0-0.8) 10^3/u L Baso # (Auto) (0.0-0.1) 10^3/u L Nucleated RBC % (a uto) % Nucleated RBCs # /100WBC PT 13.60 H (10.5-13.3) SECO NDS INR 1.01 (0.8-1.2) APTT 29.9 (23.9-36.7) SECO NDS D-Dimer (0-0.59) ug/mIFE U Sodium (136-145) mmol/L Potassium (3.5-5.1) mmol/L Chloride (98-107) mmol/L Carbon Dioxide (22-29) mmol/L Anion Gap (5-19) BUN (6-20) mg/dL Creatinine (0.7-1.2) mg/dL GFR Calculation (90-130) mL/min Glucose (65-115) mg/dL Calculated Osmolal ity (285-295) mOsm/k g Lactic Acid (0.5-2.2) mmol/L Calcium (8.5-10.5) mg/dL Total Bilirubin (0.15-1.2) mg/dL AST (0-40) U/L ALT (0-41) U/L Alkaline Phosphata se (40-130) IU/L Creatine Kinase (39-308) U/L CK-MB (CK-2) 12.0 H (0-10.4) ng/mL Total Protein (6.6-8.7) g/dL Albumin (3.5-5.2) g/dL Globulin (1.3-4.6) g/dL Lipase (13-60) U/L Urine Color (Yellow) Urine Appearance (CLEAR) Urine pH (5-7) Ur Specific Gravit y (1.005-1.030) Urine Protein (Negative) Urine Glucose (UA) (Normal) Urine Ketones (Negative) Urine Blood (Negative) Urine Nitrate (Negative) Urine Bilirubin (NEGATIVE) Urine Urobilinogen (Negative) mg/dL Ur Leukocyte Carmen ase (Negative) Urine Opiates Scre en (Negative) ng/mL Ur Barbiturates Sc reen (Negative) ng/mL Ur Phencyclidine S crn (Negative) ng/mL Ur Amphetamines Sc reen (Negative) ng/mL U Benzodiazepines Scrn (Negative) ng/mL Urine Cocaine Scre en (Negative) ng/mL U Marijuana (THC) Screen (Negative) ng/mL Ethyl Alcohol < 10 (0-10) mg/dL 05/11/20 05/11/20 05/11/20 Range/Units 08:27 08:27 09:55 WBC (4.0-10.0) 10^3/ uL RBC (4.1-5.3) 10^6/u L Hgb (11.7-16.6) g/dL Hct (42.0-52.0) % MCV (80-94) fL MCH (28.0-34.0) pg MCHC (30.0-36.0) g/dL RDW (12.1-15.1) % Plt Count (130-400) 10^3/c mm MPV (7.4-10.4) fL Neut % (Auto) % Lymph % (Auto) % [place] % (Auto) % Eos % (Auto) % Baso % (Auto) % Neut # (Auto) (1.8-7.7) 10^3/u L Lymph # (Auto) (0.8-4.8) 10^3/u L [place] # (Auto) (0.2-0.9) 10^3/u L Eos # (Auto) (0.0-0.8) 10^3/u L Baso # (Auto) (0.0-0.1) 10^3/u L Nucleated RBC % (a uto) % Nucleated RBCs # /100WBC PT (10.5-13.3) SECO NDS INR (0.8-1.2) APTT (23.9-36.7) SECO NDS D-Dimer 1.04 H (0-0.59) ug/mIFE U Sodium (136-145) mmol/L Potassium (3.5-5.1) mmol/L Chloride (98-107) mmol/L Carbon Dioxide (22-29) mmol/L Anion Gap (5-19) BUN (6-20) mg/dL Creatinine (0.7-1.2) mg/dL GFR Calculation (90-130) mL/min Glucose (65-115) mg/dL Calculated Osmolal ity (285-295) mOsm/k g Lactic Acid (0.5-2.2) mmol/L Calcium (8.5-10.5) mg/dL Total Bilirubin (0.15-1.2) mg/dL AST (0-40) U/L ALT (0-41) U/L Alkaline Phosphata se (40-130) IU/L Creatine Kinase (39-308) U/L CK-MB (CK-2) (0-10.4) ng/mL Total Protein (6.6-8.7) g/dL Albumin (3.5-5.2) g/dL Globulin (1.3-4.6) g/dL Lipase 15 (13-60) U/L Urine Color Yellow (Yellow) Urine Appearance Clear (CLEAR) Urine pH 5 (5-7) Ur Specific Gravit y 1.030 (1.005-1.030) Urine Protein Neg (Negative) Urine Glucose (UA) 4+ H (Normal) Urine Ketones 1+ H (Negative) Urine Blood Neg (Negative) Urine Nitrate Negative (Negative) Urine Bilirubin Neg (NEGATIVE) Urine Urobilinogen Norm (Negative) mg/dL Ur Leukocyte Carmen ase Negative (Negative) Urine Opiates Scre en (Negative) ng/mL Ur Barbiturates Sc reen (Negative) ng/mL Ur Phencyclidine S crn (Negative) ng/mL Ur Amphetamines Sc reen (Negative) ng/mL U Benzodiazepines Scrn (Negative) ng/mL Urine Cocaine Scre en (Negative) ng/mL U Marijuana (THC) Screen (Negative) ng/mL Ethyl Alcohol (0-10) mg/dL 05/11/20 Range/Units 09:55 WBC (4.0-10.0) 10^3/ uL RBC (4.1-5.3) 10^6/u L Hgb (11.7-16.6) g/dL Hct (42.0-52.0) % MCV (80-94) fL MCH (28.0-34.0) pg MCHC (30.0-36.0) g/dL RDW (12.1-15.1) % Plt Count (130-400) 10^3/c mm MPV (7.4-10.4) fL Neut % (Auto) % Lymph % (Auto) % [place] % (Auto) % Eos % (Auto) % Baso % (Auto) % Neut # (Auto) (1.8-7.7) 10^3/u L Lymph # (Auto) (0.8-4.8) 10^3/u L [place] # (Auto) (0.2-0.9) 10^3/u L Eos # (Auto) (0.0-0.8) 10^3/u L Baso # (Auto) (0.0-0.1) 10^3/u L Nucleated RBC % (a uto) % Nucleated RBCs # /100WBC PT (10.5-13.3) SECO NDS INR (0.8-1.2) APTT (23.9-36.7) SECO NDS D-Dimer (0-0.59) ug/mIFE U Sodium (136-145) mmol/L Potassium (3.5-5.1) mmol/L Chloride (98-107) mmol/L Carbon Dioxide (22-29) mmol/L Anion Gap (5-19) BUN (6-20) mg/dL Creatinine (0.7-1.2) mg/dL GFR Calculation (90-130) mL/min Glucose (65-115) mg/dL Calculated Osmolal ity (285-295) mOsm/k g Lactic Acid (0.5-2.2) mmol/L Calcium (8.5-10.5) mg/dL Total Bilirubin (0.15-1.2) mg/dL AST (0-40) U/L ALT (0-41) U/L Alkaline Phosphata se (40-130) IU/L Creatine Kinase (39-308) U/L CK-MB (CK-2) (0-10.4) ng/mL Total Protein (6.6-8.7) g/dL Albumin (3.5-5.2) g/dL Globulin (1.3-4.6) g/dL Lipase (13-60) U/L Urine Color (Yellow) Urine Appearance (CLEAR) Urine pH (5-7) Ur Specific Gravit y (1.005-1.030) Urine Protein (Negative) Urine Glucose (UA) (Normal) Urine Ketones (Negative) Urine Blood (Negative) Urine Nitrate (Negative) Urine Bilirubin (NEGATIVE) Urine Urobilinogen (Negative) mg/dL Ur Leukocyte Carmen ase (Negative) Urine Opiates Scre en Negative (Negative) ng/mL Ur Barbiturates Sc reen Negative (Negative) ng/mL Ur Phencyclidine S crn Negative (Negative) ng/mL Ur Amphetamines Sc reen Negative (Negative) ng/mL U Benzodiazepines Scrn Positive H (Negative) ng/mL Urine Cocaine Scre en Negative (Negative) ng/mL U Marijuana (THC) Screen Negative (Negative) ng/mL Ethyl Alcohol (0-10) mg/dL EKG Data^: EKG 1: Computer generated interpretation: Chest X-Ray 05/11/20 09:55 IMPRESSION: Continued mild pulmonary congestion. No pneumonia. Gallbladder Ultrasound 05/11/20 10:38 IMPRESSION: 1. Mildly contracted gallbladder with no stones. Probably nonfasting bases. 2. No bile duct dilatation. 3. Mild hepatomegaly. Pulmonary Perfusion Imaging 05/11/20 12:07
--- NOTE | 2020-05-11 08:30 | ECG_ITS ---
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 Measurements Intervals [place] Rate: 115 P: 43 TN: 154 QRS: 64 QRSD: 97 T: 14 QT: 309 QTc: 428 Interpretive Statements SINUS TACHYCARDIA POSSIBLE LEFT ATRIAL ENLARGEMENT [-0.1mV P WAVE IN V1/V2] ABNORMAL RHYTHM ECG Compared to ECG 05/09/2020 21:52:41 No significant changes Electronically Signed On 05-12-2020 16:28:32 CDT by Raul Espitia M.D. [id number]
[2020-05-11 08:41] LABS: Basophils % 0.4 %; Eosinophils # 0.2 10^3/uL (0.0-0.8); Eosinophils % 2.1 %; Hematocrit 41.1 % (42.0-52.0); Hemoglobin 12.6 g/dL (11.7-16.6); Lymphocytes # 1.7 10^3/uL (0.8-4.8); Lymphocytes % 17.6 %; Mean Corpuscular HGB Conc 30.7 g/dL (30.0-36.0); Mean Corpuscular Hemoglobin 27.6 pg (28.0-34.0); Mean Corpuscular Volume 89.9 fL (80-94); Mean Platelet Volume 10.5 fL (7.4-10.4); Monocytes # 1.2 10^3/uL (0.2-0.9); Monocytes % 12.5 %; Neutrophils # 6.39 10^3/uL (1.8-7.7); Neutrophils % 67.1 %; Nucleated Red Blood Cells % 0 %; Platelet Count 184 10^3/cmm (130-400); Red Blood Count 4.57 10^6/uL (4.1-5.3); Red Cell Distribution Width 14.6 % (12.1-15.1); White Blood Count 9.5 10^3/uL (4.0-10.0)
[2020-05-11 08:49] LABS: Lactic Sepsis W/Reflex 1.1 mmol/L (0.5-2.2)
[2020-05-11 08:50] LABS: Alanine Aminotransferase 82 U/L (0-41); Albumin Level 4.3 g/dL (3.5-5.2); Alkaline Phosphatase 76 IU/L (40-130); Anion Gap 15.2 (5-19); Aspartate Amino Transferase 141 U/L (0-40); Blood Urea Nitrogen 25 mg/dL (6-20); Calcium 9.1 mg/dL (8.5-10.5); Carbon Dioxide 19 mmol/L (22-29); Chloride 104 mmol/L (98-107); Globulin 3.5 g/dL (1.3-4.6); Glomerular Filtration Rate 47.4 mL/min (90-130); Glucose 122 mg/dL (65-115); Osmolality Calculated 276 mOsm/kg (285-295); Potassium 4.2 mmol/L (3.5-5.1); Sodium 134 mmol/L (136-145); Total Bilirubin 0.8 mg/dL (0.15-1.2); Total Protein 7.8 g/dL (6.6-8.7)
[2020-05-11] MEDS: sodium chloride 0.9% 1,000 ML 500 ML IV (08:55)
[2020-05-11 09:06] LABS: Creatine Phosphokinase 11341 U/L (39-308)
[2020-05-11 09:19] LABS: Partial Thromboplastin Time 29.9 SECONDS (23.9-36.7)
[2020-05-11 09:22] LABS: INR 1.01 (0.8-1.2)
--- NOTE | 2020-05-11 09:31 | PC.NURSE ---
in room. States he has early onset of dementia. Requesting that he gets admitted for abnormal labs and bad live , possibly has Hepatitis.
--- NOTE | 2020-05-11 09:55 | XR_ITS ---
WS: [id number] PORTABLE CHEST HISTORY: prior with bilateral changes, congestion COMPARISON: 05/09/2020 Slight elevation of the RIGHT hemidiaphragm is similar to the prior study. Very minimal pulmonary con gestion. No pneumonia. No pleural effusion or pneumothorax. Cardiac size: Mildly enlarged cardiac silhouette. Mediastinum/Aorta: Normal mediastinum. No osseous abnormality seen. XR/XR chest 1V portable 13190 IMPRESSION: Continued mild pulmonary congestion. No pneumonia.
[2020-05-11] MEDS: sodium chloride 0.9% 1,000 ML 999 ML IV (10:00)
--- NOTE | 2020-05-11 10:03 | P.HP_ITS ---
Providers/Chief Complaint Admitting Physician: Gege Pritchard DO Primary Care Provider: Usha López MD Chief Complaint: SPITTING UP BLOOD History of Present Illness Chris Junior is a 44 year old male with a past medical history of diabetes, hypertension, chronic kidney disease, tobacco abuse, history of hepatitis C and recent admission for acute on chronic kidney injury and rhabdomyolysis. Patient was hospitalized after noted to have metabolic encephalopathy and alcohol intoxication following recent surgery. Patient was initially placed on BiPAP and transition to oxygen by nasal cannula, nephrology was consulted due to acute kidney injury with creatinine of 5. Patient then had slow improvement but left AGAINST MEDICAL ADVICE at approximately 4:30 in the morning on 05/11/2020. There is documentation from Dr. Espinosa about long conversation with patient inclu ding the risk of leaving AGAINST MEDICAL ADVICE and concern for harm, however patient did not stay in the acute setting. He left this morning and now returned for further medical treatment. Please see recent documentation for further information regarding patient's recent hospitalization. Patient presents back to the hospital today, stated he feels overwhelmed this morning therefore left the hospital. He stated that he did not make it home walk to a convenient station and sat down there for quite some time until he was picked up by EMS and brought back to the hospital. Patient reports that he has had some intermittent chest pain, unknown aggravating or alleviating factors. Reports no worsening with exertion. He reports that he is also had some hemoptysis, coughing up blood that started this morning. Patient reports occasional swelling in the lower extremities. Patient also reports having loose stools at this time, on well water at home but no one else has been sick. Denies any bright red blood per rectum, denies any melanotic stools. Patient was seen and evaluated in the emergency department and admitted for further evaluation due to concern for rhabdomyolysis. Initially reported hemoptysis while in the ED. Review of Systems Const: Denies: fever(s) or chills Eyes: Denies: change in vision ENMT: Denies: nasal congestion Card: Reports: chest pain; Denies: palpitations or edema Resp: Reports: hemoptysis; Denies: dyspnea or productive cough GI: Reports: diarrhea; Denies: abdominal pain, nausea, vomiting, constipation, hematochezia or melena : Reports: dysuria; Denies: hematuria Musc: Denies: extremity pain or muscle cramps Skin/Breast: Denies: rash or new lesions Neuro: Reports: headache(s); Denies: dizziness Psych: Reports: anxiety; Denies: depression Endo: Denies: polyuria or hot flashes Nba/Lymph: Denies: easy bruising or easy bleeding Medications/Allergies Home Medications Medication Instructions Recorded Confirmed Last Taken Type dicyclomine 10 mg capsule 10 mg PO QID PRN 30 Days #60 cap 12/10/19 05/11/20 Unknown Rx cyclobenzaprine 10 mg tablet 10 mg PO TID PRN 30 Days #90 tab 01/24/20 05/11/20 05/10/20 Rx albuterol sulfate 90 mcg/actuation 1 - 2 puff INHALATION Q6H PRN 30 03/30/20 05/11/20 Unknown Rx aerosol inhaler Days #18 gm insulin glargine 100 unit/mL (3 20 unit SUBCUT DAILY 30 Days #6 ml 03/30/20 05/11/20 05/10/20 Rx mL) subcutaneous pen diazepam 10 mg PO TID PRN 05/09/20 05/11/20 05/10/20 History mirtazapine 15 mg PO DAILY 05/09/20 05/11/20 05/08/20 History omeprazole 40 mg PO DAILY 05/09/20 05/11/20 05/10/20 History oxycodone 10 mg PO Q6H PRN 05/09/20 05/11/20 05/10/20 History quetiapine 150 mg PO BEDTIME 05/09/20 05/11/20 05/10/20 History risperidone 1 mg PO BEDTIME 05/09/20 05/11/20 05/10/20 History vilazodone 40 mg PO DAILY 05/09/20 05/11/20 05/10/20 History canagliflozin [Invokana] 300 mg PO DAILY 05/11/20 05/11/20 05/10/20 History ibuprofen 800 mg PO TID PRN 05/11/20 05/11/20 Unknown History lisinopril 5 mg PO DAILY 05/11/20 05/11/20 05/10/20 History lovastatin 20 mg PO DAILY 05/11/20 05/11/20 05/10/20 History metformin 500 mg PO DAILY 05/11/20 05/11/20 05/10/20 History Allergies Allergy/AdvReac Type Severity Reaction Status Date / Time adhesive tape Allergy Severe rash Verified 05/11/20 08:32 Sulfa (Sulfonamide Allergy Severe unknown Verified 05/11/20 08:32 Antibiotics) tramadol Allergy Severe itch Verified 05/11/20 08:32 acetaminophen [From Tylenol] AdvReac Severe unknown Verified 05/11/20 08:32 PFSH Acute PFSH: Medical History ADD (attention deficit disorder) Chronic pain syndrome GERD (gastroesophageal reflux disease) Hyperlipidemia Hypertension Irritable bowel syndrome Peptic ulcer disease Tobacco use Type 2 diabetes mellitus Surgical History H/O neck surgery H/O wrist surgery R History of back surgery History of carpal tunnel surgery L Family History Family/Other No problems noted. Other Adopted Social History Smoking and tobacco status: current every day smoker cigarettes Packs smoked per day: 0.5 [ Other cigarette details: Says has been cutting down ] and smokeless tobacco Quit status (tobacco): considering quitting Second hand smoke exposure: Yes Smoking risk assessment/counseling performed?: No Alcohol intake: current Alcohol intake frequency: holidays/special occasions only Alcohol type: hard liquor Desire information about alcohol rehabilitation?: No Lives independently: Yes Household members: spouse Marital status: Current occupational status: unemployed Current gender identity: Male Vitals/I&O/Wt Last Vital Signs Temp 99.3 F 05/11/20 08:40 Pulse 112 H 05/11/20 09:47 Resp 18 05/11/20 09:47 BP 141/85 05/11/20 09:47 Pulse Ox 97 05/11/20 09:47 Weight last 48 hrs Weight 86.183 kg Physical Exam Const: COMMON NORMALS: patient oriented x3 and alert GENERAL APPEARANCE: cooperative ORIENTATION/CONSCIOUSNESS: Yes awake, Yes oriented to person, Yes oriented to place and Yes oriented to time HENMT: COMMON NORMALS: normocephalic and atraumatic HEAD & SCALP: normocephalic and atraumatic Eye: COMMON NORMALS: Equal, round and reactive pupils present PUPIL: Yes Equal, round and reactive pupils present Neck/C-Spine: COMMON NORMALS: supple GENERAL: Yes normal visual inspection Resp: COMMON NORMALS: normal respiratory effort and clear to auscultation bilaterally EFFORT & INSPECTION: Yes able to speak in complete sentences AUSCULTATION: clear to auscultation bilaterally, no rhonchi and no wheezes Cardio: COMMON NORMALS: regular rate, regular rhythm and No murmurs present (Cardio) RATE: regular rate RHYTHM: regular rhythm GI: COMMON NORMALS: Soft to palpation INSPECTION: No abdominal distension AUSCULTATION: Yes normoactive bowel sounds PALPATION: Yes Soft to palpation OTHER: mild tenderness to palpation in the RUQ, no guarding or rigidity Extremity: COMMON NORMALS: no clubbing, cyanosis or edema and no calf tenderness Neuro: COMMON NORMALS: patient oriented x3, CN's II-XII intact bilaterally, moves all extremities and no focal motor deficits SENSORIUM/ORIENTATION: Yes alert, Yes oriented to person, Yes oriented to place and Yes oriented to time SPEECH: speech normal Psych: COMMON NORMALS: mental status grossly normal and cooperative Skin: COMMON NORMALS: no rashes or lesions noted GENERAL SKIN EXAM: no rashes or lesions noted Data : 05/11/20 08:27 05/11/20 08:27 CXR: I personally reviewed and interpreted this imaging study as follows: Radiologist's impression: Slight elevation of the RIGHT hemidiaphragm is similar to the prior study. Very minimal pulmonary congestion. No pneumonia. No pleural effusion or pneumothorax. Cardiac size: Mildly enlarged cardiac silhouette. Mediastinum/Aorta: Normal mediastinum. No osseous abnormality seen. XR/XR chest 1V portable [id number] IMPRESSION: Continued mild pulmonary congestion. No pneumonia. CT Abd/Pel: I personally reviewed and interpreted this imaging study as follows: Radiologist's impression: IMPRESSION: 1. No acute abnormality. 2. Gas distended bowel. 3. Centralized intra-abdominal excess adipose tissue. CT Head: I personally reviewed and interpreted this imaging study as follows: Radiologist's impression: IMPRESSION: No acute intracranial abnormality. A&P Assessment and plan (1) Rhabdomyolysis: Admit with gentle IV fluids due to concern for underlying congestive heart failure Continue to hold nephrotoxic agents Patient had been recently diagnosed and treated for rhabdomyolysis but left AGAINST MEDICAL ADVICE on the morning of 05/11/2020, now returns for further evaluation and treatment. We will touch base with nephrology and make them aware of patient's readmission Holding statin Status: Acute (2) Tachycardia: Patient with sinus tachycardia, now reported hemoptysis, will check a d- dimer and if indicated we will check a CTA of the chest for further evaluation Status: Acute (3) Transaminitis: Transaminitis with a history of hepatitis C and alcohol use Urine drug screen and alcohol level are pending We will obtain gallbladder ultrasound for further evaluation Holding statin medication Status: Acute (4) Chest pain: Patient reports intermittent chest pain that has been chronic with episode this morning, hemoptysis, recent hospitalization and tachycardia therefore checking d-dimer, will check a CTA of the chest if indicated Serial EKG and troponin Close monitoring on telemetry Consider stress test when clinically appropriate We will order echocardiogram for further evaluation and treatment. Status: Acute (5) Acute kidney injury: Acute on chronic kidney injury due to rhabdomyolysis, also prerenal etiology and multiple medications that are nephrotoxic, holding lisinopril, metformin, decreased dose of gabapentin Previously nephrology was consulted, will touch base with them about patient's readmission after leaving AGAINST MEDICAL ADVICE Status: Acute (6) Carpal tunnel syndrome: Left sided carpal tunnel surgery performed by Dr. Coy on 05/08/2020 Incision is clean and without surrounding erythema, will continue with routine postoperative care Status: Acute Qualifiers: Laterality: left Qualified Code(s): G56.02 - Carpal tunnel syndrome, left upper limb (7) Tobacco use: Strongly encourage cessation, likely underlying COPD Recommend outpatient pulmonary function testing Status: Chronic (8) Hypertension: Holding lisinopril at this time due to acute kidney injury, continue to monitor blood pressure closely Status: Chronic Qualifiers: Hypertension type: essential hypertension Qualified Code(s): I10 - Essential (primary) hypertension (9) GERD (gastroesophageal reflux disease): Continue PPI Status: Chronic Qualifiers: Esophagitis presence: without esophagitis Qualified Code(s): K21.9 - Gastro-esophageal reflux disease without esophagitis (10) Chronic pain syndrome: Continue home medications Status: Chronic (11) Hyperlipidemia: Holding statin due to above Status: Chronic Qualifiers: Hyperlipidemia type: mixed hyperlipidemia Qualified Code(s): E78.2 - Mixed hyperlipidemia (12) Type 2 diabetes mellitus with hyperglycemia: Patient reporting loose stools, will check stool studies including C. 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 Consider CTA pulmonary embolism protocol if continued. Depression and anxiety: Continue home medications DVT prophylaxis: Heparin and SCDs, continue monitoring closely with reported hemoptysis, however hemoglobin remained stable Diet: Clear liquids, increase as tolerated CODE STATUS: Full code Attestations Medical Necessity Statement*: Patient requires hospitalization due to rhabdomyolysis with acute on chronic kidney injury as well as hemoptysis, tachycardia and transaminitis, expected stay greater than 2 midnights Coding Level of Care Code Acute Ladle Repairer for g Fwd Exam Comprehensive Diagnoses Rhabdomyolysis M62.82 Tachycardia R00.0 Transaminitis R74.0 Chest pain R07.9 Acute kidney injury N17.9 Carpal tunnel syndrome G56.02 Laterality: left Tobacco use Z72.0 Hypertension I10 Hypertension type: essential hypertension GERD (gastroesophageal reflux disease) K21.9 Esophagitis presence: without esophagitis Chronic pain syndrome G89.4 Hyperlipidemia E78.2 Hyperlipidemia type: mixed hyperlipidemia Type 2 diabetes mellitus with hyperglycemia E11.65 Diabetes mellitus termite control servicer insulin use: without termite control servicer use
[2020-05-11 10:04] LABS: Add Urine Microscopic? NO
[2020-05-11 10:13] LABS: Alcohol Level < 10 mg/dL (0-10)
[2020-05-11 10:24] LABS: Urine Appearance Clear (CLEAR); Urine Color Yellow (Yellow); pH Urine 5 (5-7)
[2020-05-11 10:25] LABS: Bilirubin Urine Neg (NEGATIVE); Blood Urine Neg (Negative); Glucose Urine UA 4+ (Normal); Ketones Urine 1+ (Negative); Leukocyte Esterase Urine Negative (Negative); Nitrate Urine Negative (Negative); Protein Urine Neg (Negative); Urobilinogen Urine Norm (Negative)
[2020-05-11 10:27] LABS: Amphetamines Screen Urine Negative (Negative); Barbiturates Screen Urine Negative (Negative); Benzodiazepines Screen Urine Positive (Negative); Cocaine Screen Urine Negative (Negative); Opiate Screen Urine Negative (Negative); PCP Screen Urine Negative (Negative); THC Screen Urine Negative (Negative)
--- NOTE | 2020-05-11 10:38 | US_ITS ---
WS: [id number] RIGHT UPPER QUADRANT ULTRASOUND HISTORY: Transaminitis COMPARISON: None available. Liver: 17.0 cm in length. Liver is slightly enlarged. No mass identified. The entire liver is not wel l visualized. Gallbladder: Slightly contracted gallbladder with mild wall thickening. Probably on a nonfasting base s. No stones. No pericholecystic fluid. CBD: 0.5 cm Pancreas: Not visualized. Right kidney: 8.5 cm in length. Normal echogenicity with no mass or hydronephrosis. Aorta and IVC: Unremarkable. No ascites. US/US gall bladder [id number] IMPRESSION: 1. Mildly contracted gallbladder with no stones. Probably nonfasting bases. 2. No bile duct dilatation. 3. Mild hepatomegaly.
[2020-05-11 10:51] LABS: Lipase 15 U/L (13-60)
[2020-05-11 11:14] LABS: D Dimer 1.04 ug/mIFEU (0-0.59)
[2020-05-11] MEDS: pantoprazole DR 40 mg Tablet PO (11:28)
--- NOTE | 2020-05-11 12:00 | PC.NURSE ---
Patient arrived to floor from ER. Patient transferred self from ER [facility] to bed. Patient at bedside. , Zoila, stated that a doctor in the ER said she could stay at bedside since the patient had left AMA. Dr. Pritchard contacted via telephone to clarify. Physician did not approve this. Physician stated could only visit from 4-6 pm according to visitor policy. was escorted back to ER lobby by staff. Patient A/Ox3. Patient has complaints of pain in head and lower back, 06/01. Patient resting comfortably. VS WNL, see VS and physical assessments.
--- NOTE | 2020-05-11 12:07 | USCV_ITS ---
Chris Junior Age: 44 Gender: M : 1975 Exam Date: 05/11/2020 16:01 Ordering Phys: Gege Pritchard DO Technologist: Bekah Lewis [place] [facility] [place]: [place]ST PAIN BP: / HR: 108 Rhythm: Sinus Technical Quality: Technically difficult study MEASUREMENTS (Male / Female) Normal Values 2D ECHO LV Diastolic Diameter PLAX 4.4 cm 4.2 - 5.9 / 3.9 - 5.3 cm LV Systolic Diameter PLAX 3.1 cm LV Chamber Size 3.8 cm IVS Diastolic Thickness 1.1 cm 0.6 - 1.0 / 0.6 - 0.9 cm IVS Systolic Thickness 1.8 cm LVPW Diastolic Thickness 1.6 cm 0.6 - 1.0 / 0.6 - 0.9 cm LVPW Systolic Thickness 1.9 cm RV Chamber Size 2.5 cm LVOT Diameter 2.0 cm LV Ejection Fraction 2D Teich 55.7 % LV Ejection Fraction MOD 2C 33.9 % LV Ejection Fraction 2C AL 33.1 % LA Diameter 4.0 cm LA Width 2.1 cm LA Height 3.6 cm RA Width 2.5 cm RA Height 2.7 cm Aorta at Sinotubular Diameter 3.5 cm M-MODE LV Diastolic Diameter MM 4.9 cm 4.2 - 5.9 / 3.9 - 5.3 cm LV Systolic Diameter MM 3.4 cm LV Ejection Fraction MM Teich 57.5 % IVS Diastolic Thickness MM 0.8 cm 0.6 - 1.0 / 0.6 - 0.9 cm IVS Systolic Thickness MM 1.4 cm LVPW Diastolic Thickness MM 1.4 cm 0.6 - 1.0 / 0.6 - 0.9 cm LVPW Systolic Thickness MM 1.4 cm RV Diastolic Diameter MM 2.1 cm Aortic Annulus Diameter 3.0 cm LA Ao Ratio MM 1.4 MV E Point Septal Separation 0.1 cm DOPPLER AV Peak Velocity 121.0 cm/s LVOT Peak Velocity 73.0 cm/s AV Area Cont Eq vti 2.0 cm squared AV Area Cont Eq pk 2.0 cm squared MV Area PHT 7.9 cm squared Mitral E to A Ratio 1.1 MV E' Velocity 9.0 cm/s Mitral E to MV E' Ratio 5.1 Mitral E to LV E' Lateral Ratio 7.6 Mitral E to LV E' Septal Ratio 3.9 TR Peak Velocity 104.0 cm/s TR Peak Gradient 4.3 mmHg TR Mean Velocity 76.2 cm/s TR Mean Gradient 2.4 mmHg TR Velocity Time Integral 17.5 cm TV Peak E Velocity 87.0 cm/s Right Atrial Pressure 5.0 mmHg Pulmonary Artery Systolic Pressu 9.3 mmHg PV Peak Velocity 86.0 cm/s RV Acceleration Time 0.1 s RV Ejection Time 0.3 s RV AcT/ET 0.4 FINDINGS Left Ventricle The rhythm is regular and the rate is fast and limiting the sensitivity of the examination. The ventricle is probably normal in size. There are no obvious wall motion disturbances. The ejection fraction is 55%. Grade 1 diastolic dysfunction. Right Ventricle Normal right ventricular size and systolic function. Normal right ventricular systolic pressure. Right Atrium The right atrium is normal in size. Left Atrium The left atrium is normal in size. Mitral Valve Mitral valve not well visualized. No obvious mitral regurgitation Aortic Valve Aortic valve not well visualized. No aortic stenosis. No obvious aortic insufficiency Tricuspid Valve Tricuspid valve not well visualized. No tricuspid regurgitation Pulmonic Valve Pulmonic valve not well visualized. Pericardium Normal pericardium without effusion. Aorta Normal ascending aorta dimension. CONCLUSIONS The rhythm is regular and the rate is fast and limiting the sensitivity of the examination. The ventricle is probably normal in size. There are no obvious wall motion disturbances. The ejection fraction is 55%. Grade 1 diastolic dysfunction. Technically limited study. No significant valve abnormalities. There are no prior echocardiogram studies to compare. Dr. Raul Espitia MD (Electronically Signed) Final Date: 11 May 2020 17:41 S
--- NOTE | 2020-05-11 12:07 | NM_ITS ---
WS: [id number] NUCLEAR MEDICINE VENTILATION/PERFUSION LUNG SCAN HISTORY: elevated d-dimer, Tachycardia, hemoptysis COMPARISON: Chest radiograph 05/11/2020 TECHNIQUE: Ventilation: 32.2 mCi of Technetium 99 DTPA aerosol inhaled. Perfusion: 5.2 mCi of technetium 99m MAA IV. Mild deposition of radionuclide centrally on the ventilatory portion. No unmatched wedge-shaped defec ts are noted on the perfusion examination. There are no triple matches. NM/NM pul vent and perfus* [id number] IMPRESSION: Low probability pulmonary embolism.
--- NOTE | 2020-05-11 12:35 | PC.NURSE ---
Patient transported to [facility] for Lung perfusion scan. Patient stable at this time.
--- NOTE | 2020-05-11 12:35 | ECG_ITS ---
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 Measurements Intervals [place] Rate: 103 P: 29 TX: 161 QRS: 63 QRSD: 104 T: -1 QT: 322 QTc: 423 Interpretive Statements SINUS TACHYCARDIA ABNORMAL QRS-T ANGLE [QRS-T AXIS DIFFERENCE > 60] Compared to ECG 05/11/2020 08:57:18 No significant changes Electronically Signed On 05-12-2020 16:29:47 CDT by Raul Espitia M.D. [email or web address]
[2020-05-11 12:41] LABS: Glucose Point of Care 112 mg/dL (70-110)
--- NOTE | 2020-05-11 13:15 | PC.NURSE ---
Patient back to room at this time. Patient states his pain in his abdomen and coccyx is a 10/10 and requests his oxycodone and valium. Nurse to administer oxycodone. Nurse to continue to monitor.
[2020-05-11] MEDS: sodium chloride 0.9% 1,000 ML 50 ML IV ×2 (13:20→14:44)
[2020-05-11] MEDS: heparin 5,000 unit/mL INJ 1 mL 5000 UNIT SUBCUT (13:20)
[2020-05-11] MEDS: oxyCODONE 5 mg IR Tab/Cap 10 MG PO (13:22)
[2020-05-11] MEDS: diazePAM 5 mg Tablet 10 MG PO (13:50)
--- NOTE | 2020-05-11 14:52 | PC.NURSE ---
Nurse entered room to find patient OOB, tossing around his bed linens. Patient had removed all telemetry wires and had unscrewed his IV. Nurse asked patient what he was looking for. Patient stated he was looking for his chew can. Nurse informed patient that tobacco products are not allowed on hospital premises. Patient states that he cannot go without it. Nurse to ask physician for nicotine patch. Patient to be moved to a room closer to the nurse's station for closer observation. Patient used the restroom before changing rooms. Patient pulled out IV while in the restroom. Pressure applied to site, hemostasis achieved. Patient settled in new room. New IV initiated. Patient educated on safety precautions and plan of care. Patient verbalized understanding of information; however, reinforcement needed.
--- NOTE | 2020-05-11 15:10 | PC.NURSE ---
Nurse received phone call from patient's , Zoila, stating that patient reported to her pressing the call light multiple times without any answer and that he was going to just walk out. Nurse responded to bedside. Patient educated on how to use call light to ensure he was pressing it correctly. Patient verbalized understanding. Patient agitated, sitting on side of bed sorting through belongings asking where his chew is. Patient re-educated on no tobacco use on property. Nurse to continue to monitor.
[2020-05-11 15:18] LABS: Troponin(5th) Baseline 12 ng/L (0-15)
[2020-05-11] MEDS: nicotine 21 mg Patch 1 PATCH TRANSDERMA (15:22)
--- NOTE | 2020-05-11 15:58 | PC.RESP ---
Smoking Cessation information sent to patient.
--- NOTE | 2020-05-11 16:25 | PC.NURSE ---
Patient's at bedside; patient becoming increasingly agitated and wanting to leave and smoke patient asked if he could go out side patient educated on hospital policy and procedure. patient verbalizing I am fucking leaving I am pissed and I need a Cigarette. patient began tearing off telemetry and attempting to rip out IV. This nurse attempted to calm patient as well as . Patient started to become violent with nurse and , patient raised hand as if to hit nurse and patients stopped him patient got right in 's face and Screamed I'm fucking leaving and there is no one that is going to stop me this nurse again tried to calm patient with no success. this nurse attempted to explain and educate patient on the risks of leaving AMA. Patient stated if I'm going to i want it to be at home with my friends and family. IV discontinued with cath intact. patient asked if he thought he was going to hurt himself or others patient denies any suicidal ideation or intent for harm to others. Security called to bed side for patient becoming increasingly violent. patient was asked to sign an AMA form stating this way if I you wont be responsible then stormed down the [address] with closely behind all belongings returned to patient. Security met patient in [address] and was escorted to emergency room exit. Dr Pritchard notified prior to patient becoming increasingly agitated as well as of patients choice to leave AMA Patient came back to nurses station to find patients phone that was left in the bed. was wanting to know if he could come back into the hospital if she could talk him into it. educated that he could not come back to the floor he would have to go back through the ER. asked about restraints. This nurse educated that we was not able to hold him against his will with out probable cause.
[2020-05-11 18:17] LABS: Magnesium 1.8 mg/dL (1.7-2.3); Thyroid Stimulating Hormone 0.88 uIU/mL (0.27-4.20)
--- NOTE | 2020-05-12 08:33 | PM.DCS ---
Discharge Providers Date of Admission: 05/11/20 10:33 Date of Discharge: May 12, 2020 Attending Provider at Admission: Gege Pritchard DO Attending Provider at Discharge: Gege Pritchard DO Primary Care Provider: Usha López MD Diagnoses at Discharge Discharge Diagnosis (1) Rhabdomyolysis: Status: Acute (2) Tachycardia: Status: Acute (3) Transaminitis: Status: Acute (4) Chest pain: (5) Acute kidney injury: Status: Acute (6) Carpal tunnel syndrome: Qualifiers: Laterality: left Qualified Code(s): G56.02 - Carpal tunnel syndrome, left upper limb (7) Tobacco use: (8) Hypertension: Qualifiers: Hypertension type: essential hypertension Qualified Code(s): I10 - Essential (primary) hypertension (9) GERD (gastroesophageal reflux disease): Qualifiers: Esophagitis presence: without esophagitis Qualified Code(s): K21.9 - Gastro-esophageal reflux disease without esophagitis (10) Chronic pain syndrome: (11) Hyperlipidemia: Qualifiers: Hyperlipidemia type: mixed hyperlipidemia Qualified Code(s): E78.2 - Mixed hyperlipidemia (12) Type 2 diabetes mellitus with hyperglycemia: Problem details: Unable to tolerate higher doses of metformin Qualifiers: Diabetes mellitus residential insulin use: without residential use Qualified Code(s): E11.65 - Type 2 diabetes mellitus with hyperglycemia Reason for Visit Reason for Visit: SPITTING UP BLOOD Hospital Course Hospital Course: Patient had been hospitalized the same day became upset and left AGAINST MEDICAL ADVICE at approximately 4 AM. He reportedly walked to a nearby convenience store and sat there for a while until he was brought in by EMS again. Patient was seen and evaluated in the emergency department and admitted for further evaluation and treatment due to rhabdomyolysis and hemoptysis. Patient had work-up including blood work, imaging studies in the emergency department. Patient was noted to be tachycardic he was given IV fluids with concern for rhabdomyolysis, acute kidney injury was improving and nearing his baseline however he still required further inpatient hospitalization. Patient was admitted to cardiac stepdown floor for further cardiac work-up. He had VQ scan which was performed which showed low suspicion for pulmonary embolism. He had an echocardiogram performed which showed grade 1 diastolic dysfunction. Patient was monitored on telemetry and serial EKG and troponins were ordered. Patient was noted to be increasingly agitated due to not being able to chew tobacco while in the hospital. Nicotine patch was provided. Patient was reported to be redirectable until visiting hours, once arrived it was reported that patient became increasingly agitated and wanted to leave. Patient began to get violent with nurse and to the point where security had to be called. Patient raised his hand as if he was going to hit the nurse and stepped in and stopped him. He then began yelling at the nurse and and refused to stay in the hospital and demanding cigarette. Patient had already been educated that this is a tobacco free campus. Patient signed AMA paperwork, had been discussed about the risk of leaving AGAINST MEDICAL ADVICE earlier in the day as well as at this time. Patient refused to stay in the hospital and on ultimately left AGAINST MEDICAL ADVICE. Discharge Summary: Patient left AGAINST MEDICAL ADVICE Physical Exam Narrative: EXAM NARRATIVE: See physical exam from history and physical from this hospital stay, patient left AGAINST MEDICAL ADVICE on date of admission Discharge Data Data Completed and Pending: Completed Studies During Hospitalization Category Date Time Status XR chest 1V so ble [id number] Stat Exams 05/11/20 09:55 Completed NM pul vent and p erfus* [id number] Routi ne Nuc Med 05/11/20 12:07 Completed CV echo complete* [id number] Routine Ultrasound 05/11/20 12:07 Completed US gall bladder 7 [id number] Routine Ultrasound 05/11/20 10:38 Completed Labs from last 24 hours 05/11/20 05/11/20 05/11/20 14:50 14:50 12:31 WBC RBC Hgb Hct MCV MCH MCHC RDW Plt Count MPV Neut % (Auto) Lymph % (Auto) Dolores % (Auto) Eos % (Auto) Baso % (Auto) Neut # (Auto) Lymph # (Auto) Dolores # (Auto) Eos # (Auto) Baso # (Auto) Nucleated RBC % (a uto) Nucleated RBCs # PT INR APTT D-Dimer Sodium Potassium Chloride Carbon Dioxide Anion Gap BUN Creatinine GFR Calculation Glucose POC Glucose 112 Calculated Osmolal ity Lactic Acid Calcium Magnesium 1.8 Total Bilirubin AST ALT Alkaline Phosphata se Creatine Kinase CK-MB (CK-2) Troponin T Baselin e 12 Total Protein Albumin Globulin Lipase TSH 0.88 Urine Color Urine Appearance Urine pH Ur Specific Gravit y Urine Protein Urine Glucose (UA) Urine Ketones Urine Blood Urine Nitrate Urine Bilirubin Urine Urobilinogen Ur Leukocyte Carmen ase Urine Opiates Scre en Ur Barbiturates Sc reen Ur Phencyclidine S crn Ur Amphetamines Sc reen U Benzodiazepines Scrn Urine Cocaine Scre en U Marijuana (THC) Screen Ethyl Alcohol 05/11/20 05/11/20 05/11/20 09:55 09:55 08:27 WBC RBC Hgb Hct MCV MCH MCHC RDW Plt Count MPV Neut % (Auto) Lymph % (Auto) Dolores % (Auto) Eos % (Auto) Baso % (Auto) Neut # (Auto) Lymph # (Auto) Dolores # (Auto) Eos # (Auto) Baso # (Auto) Nucleated RBC % (a uto) Nucleated RBCs # PT INR APTT D-Dimer Sodium Potassium Chloride Carbon Dioxide Anion Gap BUN Creatinine GFR Calculation Glucose POC Glucose Calculated Osmolal ity Lactic Acid Calcium Magnesium Total Bilirubin AST ALT Alkaline Phosphata se Creatine Kinase CK-MB (CK-2) Troponin T Baselin e Total Protein Albumin Globulin Lipase 15 TSH Urine Color Yellow Urine Appearance Clear Urine pH 5 Ur Specific Gravit y 1.030 Urine Protein Neg Urine Glucose (UA) 4+ H Urine Ketones 1+ H Urine Blood Neg Urine Nitrate Negative Urine Bilirubin Neg Urine Urobilinogen Norm Ur Leukocyte Carmen ase Negative Urine Opiates Scre en Negative Ur Barbiturates Sc reen Negative Ur Phencyclidine S crn Negative Ur Amphetamines Sc reen Negative U Benzodiazepines Scrn Positive H Urine Cocaine Scre en Negative U Marijuana (THC) Screen Negative Ethyl Alcohol 05/11/20 05/11/20 05/11/20 08:27 08:27 08:27 WBC RBC Hgb Hct MCV MCH MCHC RDW Plt Count MPV Neut % (Auto) Lymph % (Auto) Dolores % (Auto) Eos % (Auto) Baso % (Auto) Neut # (Auto) Lymph # (Auto) Dolores # (Auto) Eos # (Auto) Baso # (Auto) Nucleated RBC % (a uto) Nucleated RBCs # PT INR APTT D-Dimer 1.04 H Sodium Potassium Chloride Carbon Dioxide Anion Gap BUN Creatinine GFR Calculation Glucose POC Glucose Calculated Osmolal ity Lactic Acid Calcium Magnesium Total Bilirubin AST ALT Alkaline Phosphata se Creatine Kinase CK-MB (CK-2) 12.0 H Troponin T Baselin e Total Protein Albumin Globulin Lipase TSH Urine Color Urine Appearance Urine pH Ur Specific Gravit y Urine Protein Urine Glucose (UA) Urine Ketones Urine Blood Urine Nitrate Urine Bilirubin Urine Urobilinogen Ur Leukocyte Carmen ase Urine Opiates Scre en Ur Barbiturates Sc reen Ur Phencyclidine S crn Ur Amphetamines Sc reen U Benzodiazepines Scrn Urine Cocaine Scre en U Marijuana (THC) Screen Ethyl Alcohol < 10 05/11/20 05/11/20 05/11/20 08:27 08:27 08:27 WBC RBC Hgb Hct MCV MCH MCHC RDW Plt Count MPV Neut % (Auto) Lymph % (Auto) Dolores % (Auto) Eos % (Auto) Baso % (Auto) Neut # (Auto) Lymph # (Auto) Dolores # (Auto) Eos # (Auto) Baso # (Auto) Nucleated RBC % (a uto) Nucleated RBCs # PT 13.60 H INR 1.01 APTT 29.9 D-Dimer Sodium 134 L Potassium 4.2 Chloride 104 Carbon Dioxide 19 L Anion Gap 15.2 BUN 25 H Creatinine 1.6 H GFR Calculation 47.4 L Glucose 122 H POC Glucose Calculated Osmolal ity 276 L Lactic Acid 1.1 Calcium 9.1 Magnesium Total Bilirubin 0.8 AST 141 H ALT 82 H Alkaline Phosphata se 76 Creatine Kinase 86005 H* CK-MB (CK-2) Troponin T Baselin e Total Protein 7.8 Albumin 4.3 Globulin 3.5 Lipase TSH Urine Color Urine Appearance Urine pH Ur Specific Gravit y Urine Protein Urine Glucose (UA) Urine Ketones Urine Blood Urine Nitrate Urine Bilirubin Urine Urobilinogen Ur Leukocyte Carmen ase Urine Opiates Scre en Ur Barbiturates Sc reen Ur Phencyclidine S crn Ur Amphetamines Sc reen U Benzodiazepines Scrn Urine Cocaine Scre en U Marijuana (THC) Screen Ethyl Alcohol 05/11/20 08:27 WBC 9.5 RBC 4.57 Hgb 12.6 Hct 41.1 L MCV 89.9 MCH 27.6 L MCHC 30.7 RDW 14.6 Plt Count 184 MPV 10.5 H Neut % (Auto) 67.1 Lymph % (Auto) 17.6 Dolores % (Auto) 12.5 Eos % (Auto) 2.1 Baso % (Auto) 0.4 Neut # (Auto) 6.39 Lymph # (Auto) 1.7 Dolores # (Auto) 1.2 H Eos # (Auto) 0.2 Baso # (Auto) 0.0 Nucleated RBC % (a uto) 0 Nucleated RBCs # 0.0 PT INR APTT D-Dimer Sodium Potassium Chloride Carbon Dioxide Anion Gap BUN Creatinine GFR Calculation Glucose POC Glucose Calculated Osmolal ity Lactic Acid Calcium Magnesium Total Bilirubin AST ALT Alkaline Phosphata se Creatine Kinase CK-MB (CK-2) Troponin T Baselin e Total Protein Albumin Globulin Lipase TSH Urine Color Urine Appearance Urine pH Ur Specific Gravit y Urine Protein Urine Glucose (UA) Urine Ketones Urine Blood Urine Nitrate Urine Bilirubin Urine Urobilinogen Ur Leukocyte Carmen ase Urine Opiates Scre en Ur Barbiturates Sc reen Ur Phencyclidine S crn Ur Amphetamines Sc reen U Benzodiazepines Scrn Urine Cocaine Scre en U Marijuana (THC) Screen Ethyl Alcohol Vitals: Last Vital Signs Temp 98.2 F 05/11/20 16:48 Pulse 59 L 05/11/20 16:48 Resp 20 H 05/11/20 16:48 BP 171/86 05/11/20 16:48 Pulse Ox 95 05/11/20 16:48 Discharge Plan Discharge Patient Disposition: Left Against Medical Advice Condition: Fair Prescriptions: No Action dicyclomine 10 mg capsule 10 mg PO QID PRN (Reason: abdominal discomfort) 30 Days Qty: 60 RF: 2 Lantus Solostar U-100 Insulin 100 unit/mL (3 mL) insulin pen 20 unit SUBCUT DAILY 30 Days Qty: 6 RF: 2 albuterol sulfate [ProAir HFA] 90 mcg/actuation HFA aerosol inhaler 1 - 2 puff INHALATION Q6H PRN (Reason: shortness of breath or wheezing) 30 Days Qty: 18 RF: 2 cyclobenzaprine 10 mg tablet 10 mg PO TID PRN (Reason: muscle spasm) 30 Days Qty: 90 RF: 2 omeprazole 20 mg Capsule,Delayed Release(Dr/Ec) 40 mg PO DAILY RF: 0 mirtazapine 15 mg Tablet 15 mg PO DAILY RF: 0 diazepam 10 mg Tablet 10 mg PO TID PRN (Reason: Anxiety) RF: 0 risperidone 1 mg Tablet 1 mg PO BEDTIME RF: 0 quetiapine 50 mg Tablet 150 mg PO BEDTIME RF: 0 oxycodone 10 mg Tablet 10 mg PO Q6H PRN (Reason: Pain) RF: 0 vilazodone 40 mg Tablet 40 mg PO DAILY RF: 0 ibuprofen 800 mg Tablet 800 mg PO TID PRN (Reason: Pain) RF: 0 Invokana 300 mg Tablet 300 mg PO DAILY RF: 0 lisinopril 5 mg tablet 5 mg PO DAILY RF: 0 lovastatin 20 mg tablet 20 mg PO DAILY RF: 0 metformin 500 mg tablet extended release 24 hr 500 mg PO DAILY RF: 0 Referrals: Usha López MD [Primary Care Provider] - Activity Restrictions/Additional Instructions: No prescriptions, follow-up recommendations, diet or activity recommendations were able to be for provided to patient due to him becoming agitated and leaving the hospital AGAINST MEDICAL ADVICE Patient was admitted to the hospital and left AGAINST MEDICAL ADVICE twice in 1 day. Risk of leaving AGAINST MEDICAL ADVICE were explained to patient Discharge Date/Time: 05/11/20 16:30 Discharge Attestations Time Spent in Discharge Care*: less than 30 min Quality Metrics Clinical Quality Measures During this hospital stay, did patient experience: None Coding Level of Care Code Acute Cyber Incident Analyst for g Fwd Diagnoses Rhabdomyolysis M62.82 Tachycardia R00.0 Transaminitis R74.0 Chest pain R07.9 Acute kidney injury N17.9 Carpal tunnel syndrome G56.02 Laterality: left Tobacco use Z72.0 Hypertension I10 Hypertension type: essential hypertension GERD (gastroesophageal reflux disease) K21.9 Esophagitis presence: without esophagitis Chronic pain syndrome G89.4 Hyperlipidemia E78.2 Hyperlipidemia type: mixed hyperlipidemia Type 2 diabetes mellitus with hyperglycemia E11.65 Diabetes mellitus residential insulin use: without termite treater use
== END 2020-05-11 16:30 | disposition left against medical advice (07) | DRG 682 ==
LOC: ER 09:50 → CSU 11:16
PROVIDERS: Family Medicine; Admitting Provider Family Medicine; Emergency Provider Physician Assistant; PCP Family Medicine; Visit Provider Family Medicine
DX: N17.9 Acute kidney failure, unspecified (principal); G93.41 Metabolic encephalopathy; M62.82 Rhabdomyolysis; R00.0 Tachycardia, unspecified; K21.9 Gastro-esophageal reflux disease without esophagitis; G56.02 Carpal tunnel syndrome, left upper limb; Z53.29 Procedure and treatment not carried out because of patient's decision for other reasons; G89.4 Chronic pain syndrome; E11.65 Type 2 diabetes mellitus with hyperglycemia; E78.2 Mixed hyperlipidemia; Z79.84 Long term (current) use of oral hypoglycemic drugs; N18.9 Chronic kidney disease, unspecified; I12.9 Hypertensive chronic kidney disease with stage 1 through stage 4 chronic kidney disease, or unspecified chronic kidney disease; E11.22 Type 2 diabetes mellitus with diabetic chronic kidney disease; Z86.19 Personal history of other infectious and parasitic diseases; F10.229 Alcohol dependence with intoxication, unspecified; F17.210 Nicotine dependence, cigarettes, uncomplicated
CPT/HCPCS: 12345; 36415; 36416; 71045; 76705; 78014; 80053; 80306; 80307; 81003; 82550; 82553; 82962; 83605; 83690; 83735; 84443; 84484; 85025; 85378; 85610; 85730; 93005; 93306; 96372; 99283; A9540; A9567; J1644; J7030

== ENCOUNTER 2020-05-12 15:48 | Emergency (ER) | payer MEDICARE, MEDICAID, SELFPAY ==
[2020-05-12 16:22] VITALS: BP 133/81; PULSE 107; RESP 16; TEMP 37.2; O2SAT 99; BMI 28.8
[2020-05-12 16:42] VITALS: BP 128/94; PULSE 103; RESP 20; O2SAT 97
--- NOTE | 2020-05-12 16:50 | XRR_ITS ---
PROCEDURE INFORMATION: Exam: XR Chest, 1 View Exam date and time: 05/12/2020 5:10 PM Age: 44 years old Clinical indication: Patient HX: Upper abd pain; Chest is tight; Additional info: Upper abdominal pain TECHNIQUE: Imaging protocol: XR of the chest Views: 1 view. COMPARISON: CR XR chest 1V portable [id number] 05/11/2020 10:15 AM FINDINGS: Lungs: Unremarkable. No consolidation. Pleural space: Unremarkable. No pleural effusion. No pneumothorax. Heart/Mediastinum: Unremarkable. No cardiomegaly. Bones/joints: Unremarkable. Minimal visualization of plate fixation at the cervical spine. XR/XR chest 1V portable [id number] IMPRESSION: No acute findings.
--- NOTE | 2020-05-12 16:51 | ECG_ITS ---
[facility] Test Date: 2020-05-12 Pat Name: Chris Junior Department: Room: Gender: Male Nib Inspector: : 1975 Requested By: Jaylene Barth Order Number: [id number] Murrieta MD: Elda Green M.D. Measurements Intervals [place] Rate: 105 P: 45 UT: 163 QRS: 50 QRSD: 101 T: 22 QT: 330 QTc: 436 Interpretive Statements SINUS TACHYCARDIA ABNORMAL RHYTHM ECG Compared to ECG 05/11/2020 14:18:09 No significant changes Electronically Signed On 05-13-2020 20:26:22 CDT by Elda Green M.D. [id number]
--- NOTE | 2020-05-12 17:10 | W.ED.GENADLT ---
HPI - General Adult General: Chief complaint: General Medical Stated complaint: wants to be admitted into hospital Time Seen by Provider: 05/12/20 16:37 Source: patient Mode of arrival: ambulatory History of Present Illness: HPI narrative: Mr. Junior is a nice 44-year-old male who comes in with a concern of not completing his therapy in the hospital. Please see his previous charts but the patient was in the hospital for his family states sepsis and he left AGAINST MEDICAL ADVICE on 2 different occasions. Patient is tearful and upset and says he wants help. Family states that he needs to get checked back into the hospital. Patient cannot relate to me any other complaints at this time. The patient is noted to be tearful, tachycardic in the 100s but otherwise I cannot get from him any particular complaint. Associated symptoms: Deny chest pain, confusion, diaphoresis, dyspnea, headache(s), malaise, nausea, rash, palpitations, syncope or vomiting Review of Systems Const: Denies: fever(s), chills, body aches, fatigue, malaise or diaphoresis Eyes: Denies: change in vision, blurry vision, blind spots, photophobia, eye discharge or eye redness ENMT: Denies: throat pain, odynophagia, hoarseness, swelling of lips/tongue, oral sores, ear or mastoid pain, ear discharge, change in hearing or nasal discharge Card: Denies: chest pain, palpitations, irregular heart rhythm, edema, lightheadedness, syncope, pre-syncope, dyspnea on exertion or orthopnea Resp: Denies: dyspnea, productive cough, non-productive cough, wheezing, hemoptysis or chest congestion GI: Denies: abdominal pain, nausea, vomiting, hematemesis, coffee ground emesis, heartburn, diarrhea, constipation, GI cramping, hematochezia or melena : Denies: flank pain, dysuria, urinary frequency, urinary urgency or hematuria Musc: Denies: neck pain, back pain, extremity pain, extremity swelling, joint pain, joint swelling, joint redness, joint warmth or joint stiffness Skin/Breast: Denies: rash, pruritus, erythema, skin tenderness or jaundice Neuro: Denies: headache(s), numbness in extremities, weakness in extremities, sensory changes, lack of coordination, difficulty walking, dizziness, vertigo, confusion, Slurred speech present or seizure-like activity Nba/Lymph: Denies: easy bruising, easy bleeding, petechiae, purpura or enlarged lymph nodes All/Imm: Denies: urticaria, throat swelling, tongue swelling, facial swelling or acute wheezing PFSH ED PFSH: Medical History ADD (attention deficit disorder) Carpal tunnel syndrome Chest pain Chronic pain syndrome GERD (gastroesophageal reflux disease) Hematuria Hyperlipidemia Hypertension Irritable bowel syndrome Peptic ulcer disease Tobacco use Type 2 diabetes mellitus Type 2 diabetes mellitus with hyperglycemia Unable to tolerate higher doses of metformin Surgical History H/O neck surgery H/O wrist surgery R History of back surgery History of carpal tunnel surgery L Family History Family/Other No problems noted. Other Adopted Social History Smoking and tobacco status: current every day smoker cigarettes Packs smoked per day: 0.5 [ Other cigarette details: Says has been cutting down ] and smokeless tobacco Quit status (tobacco): considering quitting Second hand smoke exposure: Yes Smoking risk assessment/counseling performed?: No Alcohol intake: current Alcohol intake frequency: holidays/special occasions only Alcohol type: hard liquor Desire information about alcohol rehabilitation?: No Substance/Drug Use: never Lives independently: Yes Household members: spouse Marital status: Current occupational status: unemployed Current gender identity: Male Physical Exam Const: COMMON NORMALS: no acute distress, patient oriented x3, no limitations, healthy appearing and well nourished GENERAL APPEARANCE: cooperative, well kempt and well developed HENMT: COMMON NORMALS: normocephalic, atraumatic, external ears normal, EAC's normal and Normal external nose present HEAD & SCALP: normal to inspection, normocephalic and atraumatic FACE & SINUS: normal facial exam and face symmetric NOSE: Normal external nose present and Normal nares present EXTERNAL EAR: Yes external ears normal EXTERNAL AUDITORY CANAL: EAC's normal MOUTH: Normal oral and palatal mucosa present, lip normal and tongue normal Eye: COMMON NORMALS: Equal, round and reactive pupils present and conjunctivae normal GENERAL EYE: appearance normal, both eyes and all related structures ALIGNMENT: Yes alignment normal PERIORBITAL: periorbital findings normal EYELID: eyelids normal CONJUNCTIVA: Yes conjunctivae normal SCLERA: sclerae normal PUPIL: Yes Equal, round and reactive pupils present Neck/C-Spine: COMMON NORMALS: full ROM, no lymphadenopathy, supple, no meningeal signs and no JVD GENERAL: Yes normal visual inspection and Yes trachea midline Chest: COMMONS NORMALS: normal inspection of the chest and normal palpation of entire chest wall Resp: COMMON NORMALS: normal respiratory effort, No retractions and No use of accessory muscles EFFORT & INSPECTION: Yes able to speak in complete sentences and Yes symmetric chest movement AUSCULTATION: no crackles, no rales, no rhonchi and no wheezes Cardio: COMMON NORMALS: no JVD, regular rate, regular rhythm, S1 normal heart sound present and S2 normal heart sound present RATE: regular rate RHYTHM: regular rhythm HEART SOUNDS: S1 normal heart sound present, S2 normal heart sound present, no click, no gallops, no murmurs, no rubs and abnormal split S2 GI: COMMON NORMALS: Soft to palpation and No hepatosplenomegaly present PALPATION: Yes Soft to palpation, No Tenderness to palpation present (GI), No Guarding due to palpation present (GI), No Rigid due to palpation, Yes No hepatosplenomegaly present, No Hernia present, No Palpable mass present and No Pulsatile mass present : COMMON NORMALS: Yes no CVA tenderness BLADDER/KIDNEY EXAM: Yes no CVA tenderness Back/Pelvis: COMMON NORMALS: no CVA tenderness, thoracic and lumbar spine normal to inspection, no thoracic nor lumbar tenderness and thoraco-lumbar ROM normal Extremity: COMMON NORMALS: normal to inspection, full ROM, capillary refill normal, no joint enlargement, no clubbing, cyanosis or edema and no calf tenderness Neuro: COMMON NORMALS: patient oriented x3, CN's II-XII intact bilaterally, moves all extremities, no focal motor deficits and no sensory deficits noted MENINGEAL SIGNS: Yes no meningeal signs SPEECH: speech normal Psych: COMMON NORMALS: mental status grossly normal, Normal thought process present, cooperative, normal affect, speech normal and activity/motor behavior normal APPEARANCE: Yes well kempt SPEECH: Yes normal speech THOUGHT PROCESS: Normal thought process present Skin: COMMON NORMALS: no rashes or lesions noted, turgor normal, no jaundice, no petechiae and no mottling GENERAL SKIN EXAM: no rashes or lesions noted and turgor normal Course ED course: 183 -patient and his want to leave. He is refusing to stay for further evaluation and care. Patient is alert to person, place, time and situation. I did discuss with him leaving without complete evaluation including ultimately or severe permanent disability by his complex medical issues. Patient did ask questions about insurance and about follow-up but ultimately all of his questions were answered to his satisfaction and he is refusing to stay. His supports his decision. They are going to follow-up with her doctor tomorrow. They refused to wait for discharge instructions or to sign out AGAINST MEDICAL ADVICE. The patient did understand he was leaving AGAINST MEDICAL ADVICE per my verbal instructions. Vital Signs: Vital signs: Vital Signs Temperature 99.0 F 05/12/20 16:22 Pulse Rate 101 H 05/12/20 17:43 Respiratory Rate 18 05/12/20 17:43 Blood Pressure 117/86 05/12/20 17:43 Pulse Oximetry 99 05/12/20 17:43 MDM - General Adult MDM Narrative: Medical decision making narrative: Overall patient's laboratory work-up was improved. Ultrasound of his gallbladder was negative. EKG was unremarkable. The patient refused to stay for complete evaluation and care but at this time I did not see any acute life-threatening illness. The patient and his were informed they are welcome to return. They refused to stay for discharge instructions and they refused to sign out AGAINST MEDICAL ADVICE as they had done this twice before I were afraid that their insurance would not pay. They did understand they were leaving against my advice as they had not completed their work-up. Lab Data: Attestation: I reviewed the patient's lab results. Labs: Lab Results 05/12/20 05/12/20 05/12/20 Range/Units 17:04 17:04 17:04 WBC 6.8 (4.0-10.0) 10^3/ uL RBC 4.41 (4.1-5.3) 10^6/u L Hgb 12.0 (11.7-16.6) g/dL Hct 38.5 L (42.0-52.0) % MCV 87.3 (80-94) fL MCH 27.2 L (28.0-34.0) pg MCHC 31.2 (30.0-36.0) g/dL RDW 14.5 (12.1-15.1) % Plt Count 196 (130-400) 10^3/c mm MPV 10.2 (7.4-10.4) fL Neut % (Auto) 59.4 % Lymph % (Auto) 20.9 % [place] % (Auto) 14.2 % Eos % (Auto) 4.4 % Baso % (Auto) 0.4 % Neut # (Auto) 4.01 (1.8-7.7) 10^3/u L Lymph # (Auto) 1.4 (0.8-4.8) 10^3/u L [place] # (Auto) 1.0 H (0.2-0.9) 10^3/u L Eos # (Auto) 0.3 (0.0-0.8) 10^3/u L Baso # (Auto) 0.0 (0.0-0.1) 10^3/u L Nucleated RBC % (a uto) 0 % Nucleated RBCs # 0.0 /100WBC PT 12.70 (10.5-13.3) SECO NDS INR 0.92 (0.8-1.2) Sodium 135 L (136-145) mmol/L Potassium 3.7 (3.5-5.1) mmol/L Chloride 101 (98-107) mmol/L Carbon Dioxide 26 (22-29) mmol/L Anion Gap 11.7 (5-19) BUN 10 (6-20) mg/dL Creatinine 1.2 (0.7-1.2) mg/dL GFR Calculation 66.1 L (90-130) mL/min Glucose 98 (65-115) mg/dL Calculated Osmolal ity 276 L (285-295) mOsm/k g Lactic Acid (0.5-2.2) mmol/L Calcium 9.7 (8.5-10.5) mg/dL Magnesium 1.6 L (1.7-2.3) mg/dL Total Bilirubin 0.5 (0.15-1.2) mg/dL AST 100 H (0-40) U/L ALT 72 H (0-41) U/L Alkaline Phosphata se 66 (40-130) IU/L Creatine Kinase 6539 H* (39-308) U/L Troponin T Baselin e (0-15) ng/L Total Protein 7.8 (6.6-8.7) g/dL Albumin 4.3 (3.5-5.2) g/dL Globulin 3.5 (1.3-4.6) g/dL Lipase 25 (13-60) U/L TSH 2.74 (0.27-4.20) uIU/ mL Urine Color (Yellow) Urine Appearance (CLEAR) Urine pH (5-7) Ur Specific Gravit y (1.005-1.030) Urine Protein (Negative) Urine Glucose (UA) (Normal) Urine Ketones (Negative) Urine Blood (Negative) Urine Nitrate (Negative) Urine Bilirubin (NEGATIVE) Urine Urobilinogen (Negative) mg/dL Ur Leukocyte Carmen ase (Negative) Ethyl Alcohol < 10 (0-10) mg/dL 05/12/20 05/12/20 05/12/20 Range/Units 17:04 17:04 17:52 WBC (4.0-10.0) 10^3/ uL RBC (4.1-5.3) 10^6/u L Hgb (11.7-16.6) g/dL Hct (42.0-52.0) % MCV (80-94) fL MCH (28.0-34.0) pg MCHC (30.0-36.0) g/dL RDW (12.1-15.1) % Plt Count (130-400) 10^3/c mm MPV (7.4-10.4) fL Neut % (Auto) % Lymph % (Auto) % [place] % (Auto) % Eos % (Auto) % Baso % (Auto) % Neut # (Auto) (1.8-7.7) 10^3/u L Lymph # (Auto) (0.8-4.8) 10^3/u L [place] # (Auto) (0.2-0.9) 10^3/u L Eos # (Auto) (0.0-0.8) 10^3/u L Baso # (Auto) (0.0-0.1) 10^3/u L Nucleated RBC % (a uto) % Nucleated RBCs # /100WBC PT (10.5-13.3) SECO NDS INR (0.8-1.2) Sodium (136-145) mmol/L Potassium (3.5-5.1) mmol/L Chloride (98-107) mmol/L Carbon Dioxide (22-29) mmol/L Anion Gap (5-19) BUN (6-20) mg/dL Creatinine (0.7-1.2) mg/dL GFR Calculation (90-130) mL/min Glucose (65-115) mg/dL Calculated Osmolal ity (285-295) mOsm/k g Lactic Acid 1.0 (0.5-2.2) mmol/L Calcium (8.5-10.5) mg/dL Magnesium (1.7-2.3) mg/dL Total Bilirubin (0.15-1.2) mg/dL AST (0-40) U/L ALT (0-41) U/L Alkaline Phosphata se (40-130) IU/L Creatine Kinase (39-308) U/L Troponin T Baselin e 7 (0-15) ng/L Total Protein (6.6-8.7) g/dL Albumin (3.5-5.2) g/dL Globulin (1.3-4.6) g/dL Lipase (13-60) U/L TSH (0.27-4.20) uIU/ mL Urine Color Yellow (Yellow) Urine Appearance Clear (CLEAR) Urine pH 6 (5-7) Ur Specific Gravit y 1.010 (1.005-1.030) Urine Protein Neg (Negative) Urine Glucose (UA) 4+ H (Normal) Urine Ketones Negative (Negative) Urine Blood Neg (Negative) Urine Nitrate Negative (Negative) Urine Bilirubin Neg (NEGATIVE) Urine Urobilinogen Neg (Negative) mg/dL Ur Leukocyte Carmen ase Negative (Negative) Ethyl Alcohol (0-10) mg/dL Imaging Data^: CXR: My impression: No acute cardiopulmonary findings. EKG Data^: EKG 1: Attestation: I personally reviewed and interpreted this EKG as follows: EKG interpretation date: 05/12/20 EKG interpretation time: 17:07 Interpretation: NSR @ 105, No acute ST/T wave changes. Artifact present. Discharge Plan Discharge Patient Disposition: Left Against Medical Advice Clinical Impression: Rhabdomyolysis Qualifiers: Rhabdomyolysis type: non-traumatic Qualified Code(s): M62.82 - Rhabdomyolysis Abdominal pain Qualifiers: Abdominal location: right upper quadrant Qualified Code(s): R10.11 - Right upper quadrant pain Prescriptions: No Action dicyclomine 10 mg capsule 10 mg PO QID PRN (Reason: abdominal discomfort) 30 Days Qty: 60 RF: 2 Lantus Solostar U-100 Insulin 100 unit/mL (3 mL) insulin pen 20 unit SUBCUT DAILY 30 Days Qty: 6 RF: 2 albuterol sulfate [ProAir HFA] 90 mcg/actuation HFA aerosol inhaler 1 - 2 puff INHALATION Q6H PRN (Reason: shortness of breath or wheezing) 30 Days Qty: 18 RF: 2 cyclobenzaprine 10 mg tablet 10 mg PO TID PRN (Reason: muscle spasm) 30 Days Qty: 90 RF: 2 gabapentin 400 mg capsule 400 mg PO TID RF: 0 clonazepam 1 mg tablet 1 mg PO QID RF: 0 omeprazole 20 mg Capsule,Delayed Release(Dr/Ec) 40 mg PO DAILY RF: 0 mirtazapine 15 mg Tablet 15 mg PO DAILY RF: 0 diazepam 10 mg Tablet 10 mg PO TID PRN (Reason: Anxiety) RF: 0 risperidone 1 mg Tablet 1 mg PO BEDTIME RF: 0 quetiapine 50 mg Tablet 150 mg PO BEDTIME RF: 0 oxycodone 10 mg Tablet 10 mg PO Q6H PRN (Reason: Pain) RF: 0 vilazodone 40 mg Tablet 40 mg PO DAILY RF: 0 ibuprofen 800 mg Tablet 800 mg PO TID PRN (Reason: Pain) RF: 0 Invokana 300 mg Tablet 300 mg PO DAILY RF: 0 lisinopril 5 mg tablet 5 mg PO DAILY RF: 0 lovastatin 20 mg tablet 20 mg PO DAILY RF: 0 metformin 500 mg tablet extended release 24 hr 500 mg PO DAILY RF: 0 Referrals: Usha López MD [Primary Care Provider] - Patient Instructions: Cholecystitis (ED), Abdominal Pain (ED) Interventions: ED Discharge Assessment Last Done: 05/12/20 18:37 ED Charges Last Done: 05/12/20 18:37 Discharge Date/Time: 05/12/20 18:39 Coding Level of Care Code ED Assessment Nurse for [facility] Fwd Exam Comprehensive
[2020-05-12 17:11] LABS: Basophils % 0.4 %; Eosinophils # 0.3 10^3/uL (0.0-0.8); Eosinophils % 4.4 %; Hematocrit 38.5 % (42.0-52.0); Lymphocytes # 1.4 10^3/uL (0.8-4.8); Lymphocytes % 20.9 %; Mean Corpuscular HGB Conc 31.2 g/dL (30.0-36.0); Mean Corpuscular Hemoglobin 27.2 pg (28.0-34.0); Mean Corpuscular Volume 87.3 fL (80-94); Mean Platelet Volume 10.2 fL (7.4-10.4); Monocytes % 14.2 %; Neutrophils # 4.01 10^3/uL (1.8-7.7); Neutrophils % 59.4 %; Nucleated Red Blood Cells % 0 %; Platelet Count 196 10^3/cmm (130-400); Red Blood Count 4.41 10^6/uL (4.1-5.3); Red Cell Distribution Width 14.5 % (12.1-15.1); White Blood Count 6.8 10^3/uL (4.0-10.0)
--- NOTE | 2020-05-12 17:14 | US_ITS ---
WS: [id number] RIGHT UPPER QUADRANT ULTRASOUND HISTORY: Pain COMPARISON: 05/11/2020 Liver: 16.8 cm in length. Liver is top normal size. Increased attenuation and incomplete evaluation o f the liver. No mass or bile duct dilatation. Gallbladder: Normally distended gallbladder with no stones or wall thickening. CBD: 0.6 cm Pancreas: Poorly visualized. Right kidney: 10.0 cm in length. Normal echogenicity with no mass or hydronephrosis. Aorta and IVC: Unremarkable. No ascites. US/US gall bladder [id number] IMPRESSION: 1. Negative gallbladder. 2. Mild hepatic steatosis and hepatomegaly.
[2020-05-12 17:20] LABS: INR 0.92 (0.8-1.2)
[2020-05-12 17:28] LABS: Troponin(5th) Baseline 7 ng/L (0-15)
[2020-05-12 17:36] LABS: Alanine Aminotransferase 72 U/L (0-41); Albumin Level 4.3 g/dL (3.5-5.2); Alkaline Phosphatase 66 IU/L (40-130); Anion Gap 11.7 (5-19); Aspartate Amino Transferase 100 U/L (0-40); Blood Urea Nitrogen 10 mg/dL (6-20); Calcium 9.7 mg/dL (8.5-10.5); Carbon Dioxide 26 mmol/L (22-29); Chloride 101 mmol/L (98-107); Globulin 3.5 g/dL (1.3-4.6); Glomerular Filtration Rate 66.1 mL/min (90-130); Glucose 98 mg/dL (65-115); Lipase 25 U/L (13-60); Magnesium 1.6 mg/dL (1.7-2.3); Osmolality Calculated 276 mOsm/kg (285-295); Potassium 3.7 mmol/L (3.5-5.1); Sodium 135 mmol/L (136-145); Thyroid Stimulating Hormone 2.74 uIU/mL (0.27-4.20); Total Bilirubin 0.5 mg/dL (0.15-1.2); Total Protein 7.8 g/dL (6.6-8.7)
[2020-05-12 17:43] VITALS: BP 117/86; PULSE 101; RESP 18; O2SAT 99
--- NOTE | 2020-05-12 17:45 | PC.NURSE ---
WHILE SPEAKING TO PT, PT NIECE(ON THE PHONE), AND PT AT BEDSIDE ABOUT NIECE STATING THAT PT HAD THREATENED SELF HARM AND HAD TAKEN TO MANY PILLS . PT DENIES ANY SELF HARM OR SUICIDIAL THOUGHTS. STATES THAT PT TOOK ONE EXTRA VALIUM PER 'S ORDER. NIECE STATES THAT SHE DID NOT STATE THAT PT WANTED TO SELF HARM. INFORMED DR. PIZARRO VERBALIZED UNDERSTANDING NO FURTHER ORDERS.
[2020-05-12] MEDS: sodium chloride 0.9% 1,000 ML 999 ML IV (17:49)
[2020-05-12] MEDS: ondansetron 2 mg/ML SDV 2 mL 4 MG IVP (17:49)
[2020-05-12] MEDS: sodium chloride 0.9% 1,000 ML 100 ML IV (17:49)
[2020-05-12 17:55] LABS: Alcohol Level < 10 mg/dL (0-10); Creatine Phosphokinase 6539 U/L (39-308)
--- NOTE | 2020-05-12 18:07 | PC.NURSE ---
INFORMED DR. PIZARRO OF [facility] OF [id number] REPORTED TO ME BY PHONE BY SERA FROM LAB.
[2020-05-12 18:36] LABS: Urine Appearance Clear (CLEAR); Urine Color Yellow (Yellow); pH Urine 6 (5-7)
[2020-05-12 18:37] LABS: Bilirubin Urine Neg (NEGATIVE); Blood Urine Neg (Negative); Glucose Urine UA 4+ (Normal); Ketones Urine Negative (Negative); Leukocyte Esterase Urine Negative (Negative); Nitrate Urine Negative (Negative); Protein Urine Neg (Negative); Urobilinogen Urine Neg (Negative)
--- NOTE | 2020-05-12 18:38 | PC.NURSE ---
Patient spoke to provider, and does not wish to be in our ER anymore and demanding to have his IV removed so that he may leave the emergency department. He has refused to sign AMA paperwork.
[2020-05-12 18:41] LABS: Bacteria Urine TRACE; Squamous Epithelial Cell Urine 0-4 (0-5)
[2020-05-12 18:42] LABS: Add Urine Culture? No
== END 2020-05-12 18:39 | disposition left against medical advice (07) ==
PROVIDERS: Emergency Provider Emergency Medicine; PCP Family Medicine
DX: M62.82 Rhabdomyolysis (principal); Z79.4 Long term (current) use of insulin; F17.210 Nicotine dependence, cigarettes, uncomplicated; E78.5 Hyperlipidemia, unspecified; I10 Essential (primary) hypertension; E11.9 Type 2 diabetes mellitus without complications
CPT/HCPCS: 12345; 36415; 71045; 76705; 80053; 80307; 81001; 82550; 83605; 83690; 83735; 84443; 84484; 85025; 85610; 93005; 96361; 96365; 96375; 99283; 99284; J2405; J7030

== ENCOUNTER 2020-05-12 20:30 | Emergency (ER) | payer MEDICARE, MEDICAID, SELFPAY ==
[2020-05-12 20:32] VITALS: BP 132/98; PULSE 108; RESP 18; TEMP 36.9; O2SAT 96; BMI 28.8
--- NOTE | 2020-05-12 20:34 | XRR_ITS ---
PROCEDURE INFORMATION: Exam: XR Chest, 1 View Exam date and time: 05/12/2020 9:00 PM Age: 44 years old Clinical indication: Dyspnea and other: Sepsis; Kidney failure; Patient HX: Dyspnea/kidney failure/sepsis TECHNIQUE: Imaging protocol: XR of the chest Views: 1 view. COMPARISON: CR XR chest 1V portable [id number] 05/12/2020 4:58 PM FINDINGS: Lungs: Interstitial prominence, without acute airspace disease. Pleural space: No pleural effusion. Heart/Mediastinum: Epicardial fat, without cardiomegaly. Bones/joints: Mild degenerative change . When correlating with the previous study, no significant interval changes are present. XR/XR chest 1V portable [id number] IMPRESSION: No acute airspace or pleural disease.
[2020-05-12 21:04] LABS: Basophils % 0.4 %; Eosinophils # 0.3 10^3/uL (0.0-0.8); Eosinophils % 3.5 %; Hematocrit 38.3 % (42.0-52.0); Hemoglobin 12.2 g/dL (11.7-16.6); Lymphocytes # 1.3 10^3/uL (0.8-4.8); Mean Corpuscular HGB Conc 31.9 g/dL (30.0-36.0); Mean Corpuscular Hemoglobin 27.9 pg (28.0-34.0); Mean Corpuscular Volume 87.4 fL (80-94); Mean Platelet Volume 10.2 fL (7.4-10.4); Monocytes # 0.9 10^3/uL (0.2-0.9); Monocytes % 12.9 %; Neutrophils # 4.61 10^3/uL (1.8-7.7); Neutrophils % 64.5 %; Nucleated Red Blood Cells % 0 %; Platelet Count 211 10^3/cmm (130-400); Red Blood Count 4.38 10^6/uL (4.1-5.3); Red Cell Distribution Width 14.5 % (12.1-15.1); White Blood Count 7.2 10^3/uL (4.0-10.0)
--- NOTE | 2020-05-12 21:09 | W.ED.GENADLT ---
HPI - General Adult General: Chief complaint: General Medical Stated complaint: SEPSIS Time Seen by Provider: 05/12/20 20:34 Source: patient and EMS Mode of arrival: EMS Limitations: no limitations History of Present Illness: HPI narrative: Chris is a 44-year-old male who was just seen here earlier today by me. Please see that note for the history, physical exam and disposition. Ultimately the patient left AGAINST MEDICAL ADVICE and walked out of the ER without discharge instructions or signing AMA statement. Patient has been admitted and discharged in the past few days twice for rhabdomyolysis. His creatinine kinase continues to come down and his transaminitis continues to improve. The family brought him in earlier tonight wanting to get the hospital and myself to force him to come into the hospital for further treatment but the he refused. The patient was of sound mind and showed no sign of impairment and wanted to be discharged. He still signed out AGAINST MEDICAL ADVICE. His was supportive of that decision. Since leaving the patient got into another argument with his and they called an ambulance thinking that they would take him to [place] where he is Dr. dunn. Ultimately the ambulance service brought him back here and the family is upset. They are now claiming the patient is a risk to himself because he is noncompliant with his medications and agreeing to take the medical therapy as has been advised him. Associated symptoms: Deny chest pain, dyspnea, headache(s), nausea, rash, palpitations, syncope or vomiting Review of Systems Const: Denies: fever(s) Eyes: Denies: change in vision ENMT: Denies: throat pain Card: Denies: chest pain, palpitations, syncope, pre-syncope or dyspnea on exertion Resp: Denies: dyspnea, productive cough or non-productive cough GI: Denies: abdominal pain, nausea, vomiting or diarrhea : Denies: flank pain, dysuria, urinary frequency or urinary urgency Musc: Denies: neck pain, back pain or extremity pain Skin/Breast: Denies: rash or pruritus Neuro: Denies: headache(s), numbness in extremities, weakness in extremities or dizziness Nba/Lymph: Denies: easy bruising or easy bleeding All/Imm: Denies: urticaria PFS ED PFSH: Medical History ADD (attention deficit disorder) Carpal tunnel syndrome Chest pain Chronic pain syndrome GERD (gastroesophageal reflux disease) Hematuria Hyperlipidemia Hypertension Irritable bowel syndrome Peptic ulcer disease Tobacco use Type 2 diabetes mellitus Type 2 diabetes mellitus with hyperglycemia Unable to tolerate higher doses of metformin Surgical History H/O neck surgery H/O wrist surgery R History of back surgery History of carpal tunnel surgery L Family History Family/Other No problems noted. Other Adopted Social History Smoking and tobacco status: current every day smoker cigarettes Packs smoked per day: 0.5 [ Other cigarette details: Says has been cutting down ] and smokeless tobacco Quit status (tobacco): considering quitting Second hand smoke exposure: Yes Smoking risk assessment/counseling performed?: No Alcohol intake: current Alcohol intake frequency: holidays/special occasions only Alcohol type: hard liquor Desire information about alcohol rehabilitation?: No Lives independently: Yes Household members: spouse Marital status: Current occupational status: unemployed Current gender identity: Male Physical Exam Const: COMMON NORMALS: no acute distress, patient oriented x3, no limitations, healthy appearing and well nourished GENERAL APPEARANCE: cooperative, well kempt and well developed HENMT: COMMON NORMALS: normocephalic, atraumatic, external ears normal, EAC's normal and Normal external nose present HEAD & SCALP: normal to inspection, normocephalic and atraumatic FACE & SINUS: normal facial exam and face symmetric NOSE: Normal external nose present and Normal nares present EXTERNAL EAR: Yes external ears normal EXTERNAL AUDITORY CANAL: EAC's normal MOUTH: Normal oral and palatal mucosa present, lip normal and tongue normal Eye: COMMON NORMALS: Equal, round and reactive pupils present and conjunctivae normal GENERAL EYE: appearance normal, both eyes and all related structures ALIGNMENT: Yes alignment normal PERIORBITAL: periorbital findings normal EYELID: eyelids normal CONJUNCTIVA: Yes conjunctivae normal SCLERA: sclerae normal PUPIL: Yes Equal, round and reactive pupils present Neck/C-Spine: COMMON NORMALS: full ROM, no lymphadenopathy, supple, no meningeal signs and no JVD GENERAL: Yes normal visual inspection and Yes trachea midline Chest: COMMONS NORMALS: normal inspection of the chest and normal palpation of entire chest wall Resp: COMMON NORMALS: normal respiratory effort, No retractions and No use of accessory muscles EFFORT & INSPECTION: Yes able to speak in complete sentences and Yes symmetric chest movement AUSCULTATION: no crackles, no rales, no rhonchi and no wheezes Cardio: COMMON NORMALS: no JVD, regular rate, regular rhythm, S1 normal heart sound present and S2 normal heart sound present RATE: regular rate RHYTHM: regular rhythm HEART SOUNDS: S1 normal heart sound present, S2 normal heart sound present, no click, no gallops, no murmurs, no rubs and abnormal split S2 GI: COMMON NORMALS: Soft to palpation and No hepatosplenomegaly present PALPATION: Yes Soft to palpation, No Tenderness to palpation present (GI), No Guarding due to palpation present (GI), No Rigid due to palpation, Yes No hepatosplenomegaly present, No Hernia present, No Palpable mass present and No Pulsatile mass present : COMMON NORMALS: Yes no CVA tenderness BLADDER/KIDNEY EXAM: Yes no CVA tenderness Back/Pelvis: COMMON NORMALS: no CVA tenderness, thoracic and lumbar spine normal to inspection, no thoracic nor lumbar tenderness and thoraco-lumbar ROM normal Extremity: COMMON NORMALS: normal to inspection, full ROM, capillary refill normal, no joint enlargement, no clubbing, cyanosis or edema and no calf tenderness Neuro: COMMON NORMALS: patient oriented x3, CN's II-XII intact bilaterally, moves all extremities, no focal motor deficits and no sensory deficits noted MENINGEAL SIGNS: Yes no meningeal signs SPEECH: speech normal Psych: COMMON NORMALS: mental status grossly normal, Normal thought process present, cooperative, normal affect, speech normal and activity/motor behavior normal APPEARANCE: Yes well kempt SPEECH: Yes normal speech THOUGHT PROCESS: Normal thought process present Skin: COMMON NORMALS: no rashes or lesions noted, turgor normal, no jaundice, no petechiae and no mottling GENERAL SKIN EXAM: no rashes or lesions noted and turgor normal Course Vital Signs: Vital signs: Vital Signs Temperature 98.5 F 05/12/20 20:32 Pulse Rate 121 H 05/12/20 21:21 Respiratory Rate 22 H 05/12/20 21:21 Blood Pressure 133/95 05/12/20 21:21 Pulse Oximetry 97 05/12/20 21:21 MDM - General Adult MDM Narrative: Medical decision making narrative: The patient was seen and evaluated by Dr. López. Dr. López has reviewed the affidavits. The patient at no time is ever said he wants to hurt himself or anyone else. He does agree that he is not taking the medications as he should and he states that he is taking that because he is anxious but adamantly denies any suicidal ideation. The patient was advised at length by Dr. López and myself not to take his medications any other way than they are prescribed. I have advised family that he should not take these other than as prescribed and they agree to keep his medicines away from him and will not give them to him and if he does become angry or violent they will call the police to have him arrested. The patient has has not been violent or difficult during his time in the ER other than not agreeing to what I have asked him to do. The patient is of sound mind. He is alert to person, place, time and situation. He understands the risks of taking medications other than they are prescribed including oversedation which could cause or severe permanent disability. He states he will slow down and now that he is no longer in the hospital and his family who says they were not going to continue to try to push him to come back in the hospital, he will take his medications as prescribed only. The patient does not appear to be under the influence of anything to the point of impairment. Dr. López is seen and evaluate the patient and he is in agreement. I still have encouraged the patient to stay in the hospital for further IV therapy to ensure that he clears his rhabdomyolysis but he refuses. He states he wants to go back home where he will be called the not anxious that is the mo to all of his problems according to him. Family agrees to take him home. They have no questions or concerns and they agree with his treatment plan. The patient is going to follow-up with his psychiatrist in [place] tomorrow as scheduled. Lab Data: Labs: Lab Results 05/12/20 05/12/20 05/12/20 Range/Units 17:52 20:45 20:45 WBC 7.2 (4.0-10.0) 10^3/ uL RBC 4.38 (4.1-5.3) 10^6/u L Hgb 12.2 (11.7-16.6) g/dL Hct 38.3 L (42.0-52.0) % MCV 87.4 (80-94) fL MCH 27.9 L (28.0-34.0) pg MCHC 31.9 (30.0-36.0) g/dL RDW 14.5 (12.1-15.1) % Plt Count 211 (130-400) 10^3/c mm MPV 10.2 (7.4-10.4) fL Neut % (Auto) 64.5 % Lymph % (Auto) 18.0 % [place] % (Auto) 12.9 % Eos % (Auto) 3.5 % Baso % (Auto) 0.4 % Neut # (Auto) 4.61 (1.8-7.7) 10^3/u L Lymph # (Auto) 1.3 (0.8-4.8) 10^3/u L [place] # (Auto) 0.9 (0.2-0.9) 10^3/u L Eos # (Auto) 0.3 (0.0-0.8) 10^3/u L Baso # (Auto) 0.0 (0.0-0.1) 10^3/u L Nucleated RBC % (a uto) 0 % Nucleated RBCs # 0.0 /100WBC PT 13.10 (10.5-13.3) SECO NDS INR 0.96 (0.8-1.2) Sodium (136-145) mmol/L Potassium (3.5-5.1) mmol/L Chloride (98-107) mmol/L Carbon Dioxide (22-29) mmol/L Anion Gap (5-19) BUN (6-20) mg/dL Creatinine (0.7-1.2) mg/dL GFR Calculation (90-130) mL/min Glucose (65-115) mg/dL Calculated Osmolal ity (285-295) mOsm/k g Calcium (8.5-10.5) mg/dL Magnesium (1.7-2.3) mg/dL Total Bilirubin (0.15-1.2) mg/dL AST (0-40) U/L ALT (0-41) U/L Alkaline Phosphata se (40-130) IU/L Creatine Kinase (39-308) U/L Troponin T Baselin e (0-15) ng/L Total Protein (6.6-8.7) g/dL Albumin (3.5-5.2) g/dL Globulin (1.3-4.6) g/dL Lipase (13-60) U/L TSH (0.27-4.20) uIU/ mL Urine Opiates Scre en Negative (Negative) ng/mL Ur Barbiturates Sc reen Negative (Negative) ng/mL Ur Phencyclidine S crn Negative (Negative) ng/mL Ur Amphetamines Sc reen Negative (Negative) ng/mL U Benzodiazepines Scrn Positive H (Negative) ng/mL Urine Cocaine Scre en Negative (Negative) ng/mL U Marijuana (THC) Screen Negative (Negative) ng/mL Ethyl Alcohol (0-10) mg/dL 05/12/20 05/12/20 Range/Units 20:45 20:45 WBC (4.0-10.0) 10^3/ uL RBC (4.1-5.3) 10^6/u L Hgb (11.7-16.6) g/dL Hct (42.0-52.0) % MCV (80-94) fL MCH (28.0-34.0) pg MCHC (30.0-36.0) g/dL RDW (12.1-15.1) % Plt Count (130-400) 10^3/c mm MPV (7.4-10.4) fL Neut % (Auto) % Lymph % (Auto) % [place] % (Auto) % Eos % (Auto) % Baso % (Auto) % Neut # (Auto) (1.8-7.7) 10^3/u L Lymph # (Auto) (0.8-4.8) 10^3/u L [place] # (Auto) (0.2-0.9) 10^3/u L Eos # (Auto) (0.0-0.8) 10^3/u L Baso # (Auto) (0.0-0.1) 10^3/u L Nucleated RBC % (a uto) % Nucleated RBCs # /100WBC PT (10.5-13.3) SECO NDS INR (0.8-1.2) Sodium 134 L (136-145) mmol/L Potassium 3.4 L (3.5-5.1) mmol/L Chloride 100 (98-107) mmol/L Carbon Dioxide 24 (22-29) mmol/L Anion Gap 13.4 (5-19) BUN 9 (6-20) mg/dL Creatinine 1.1 (0.7-1.2) mg/dL GFR Calculation 73.1 L (90-130) mL/min Glucose 136 H (65-115) mg/dL Calculated Osmolal ity 276 L (285-295) mOsm/k g Calcium 9.4 (8.5-10.5) mg/dL Magnesium 1.5 L (1.7-2.3) mg/dL Total Bilirubin 0.6 (0.15-1.2) mg/dL AST 98 H (0-40) U/L ALT 73 H (0-41) U/L Alkaline Phosphata se 67 (40-130) IU/L Creatine Kinase 5930 H* (39-308) U/L Troponin T Baselin e 8 (0-15) ng/L Total Protein 7.5 (6.6-8.7) g/dL Albumin 4.1 (3.5-5.2) g/dL Globulin 3.4 (1.3-4.6) g/dL Lipase 25 (13-60) U/L TSH 2.00 (0.27-4.20) uIU/ mL Urine Opiates Scre en (Negative) ng/mL Ur Barbiturates Sc reen (Negative) ng/mL Ur Phencyclidine S crn (Negative) ng/mL Ur Amphetamines Sc reen (Negative) ng/mL U Benzodiazepines Scrn (Negative) ng/mL Urine Cocaine Scre en (Negative) ng/mL U Marijuana (THC) Screen (Negative) ng/mL Ethyl Alcohol < 10 (0-10) mg/dL EKG Data^: EKG 1: Attestation: I personally reviewed and interpreted this EKG as follows: EKG interpretation date: 05/12/20 EKG interpretation time: 22:05 Interpretation: Normal sinus rhythm at 109 beats a minute, no acute ST-T wave changes. Discharge Plan Discharge Patient Disposition: Left Against Medical Advice Clinical Impression: Rhabdomyolysis Qualifiers: Rhabdomyolysis type: non-traumatic Qualified Code(s): M62.82 - Rhabdomyolysis Condition: Stable Prescriptions: No Action dicyclomine 10 mg capsule 10 mg PO QID PRN (Reason: abdominal discomfort) 30 Days Qty: 60 RF: 2 Lantus Solostar U-100 Insulin 100 unit/mL (3 mL) insulin pen 20 unit SUBCUT DAILY 30 Days Qty: 6 RF: 2 albuterol sulfate [ProAir HFA] 90 mcg/actuation HFA aerosol inhaler 1 - 2 puff INHALATION Q6H PRN (Reason: shortness of breath or wheezing) 30 Days Qty: 18 RF: 2 cyclobenzaprine 10 mg tablet 10 mg PO TID PRN (Reason: muscle spasm) 30 Days Qty: 90 RF: 2 gabapentin 400 mg capsule 400 mg PO TID RF: 0 clonazepam 1 mg tablet 1 mg PO QID RF: 0 omeprazole 20 mg Capsule,Delayed Release(Dr/Ec) 40 mg PO DAILY RF: 0 mirtazapine 15 mg Tablet 15 mg PO DAILY RF: 0 diazepam 10 mg Tablet 10 mg PO TID PRN (Reason: Anxiety) RF: 0 risperidone 1 mg Tablet 1 mg PO BEDTIME RF: 0 quetiapine 50 mg Tablet 150 mg PO BEDTIME RF: 0 oxycodone 10 mg Tablet 10 mg PO Q6H PRN (Reason: Pain) RF: 0 vilazodone 40 mg Tablet 40 mg PO DAILY RF: 0 ibuprofen 800 mg Tablet 800 mg PO TID PRN (Reason: Pain) RF: 0 Invokana 300 mg Tablet 300 mg PO DAILY RF: 0 lisinopril 5 mg tablet 5 mg PO DAILY RF: 0 lovastatin 20 mg tablet 20 mg PO DAILY RF: 0 metformin 500 mg tablet extended release 24 hr 500 mg PO DAILY RF: 0 Referrals: Usha López MD [Primary Care Provider] - 1-3 days Discharge Diet: Advance as tolerated Discharge Activity: Limit activity as instructed Patient Instructions: Rhabdomyolysis (ED) Activity Restrictions/Additional Instructions: Please return to the ER immediately for any of the signs or symptoms listed on your discharge instruction sheets, worsening/changing of your symptoms, you are not getting better as quickly as expected, or for ANY other cause or concerns. You have been offered work-ups and admission multiple times but continue to decline to stay. Rhabdomyolysis which is a breakdown of muscle with proteins in your blood can be a threat to your life. You were declining definitive treatment for this and therefore put yourself at risk of or severe permanent disability. If you are more than welcome to return should you change your mind. You need to be certain to follow-up with your doctor for recheck of your kidneys to be certain that your body clears the remainder of the muscle proteins in your blood. If you change your mind you are more than welcome to return to the ER at any time. Be certain not to take any more medications than you are prescribed. Stand Alone Forms: Against Medical Advice Discharge Date/Time: 05/12/20 22:38 Coding Level of Care Code ED Warp Dresser for Marcos Scott
[2020-05-12 21:12] LABS: INR 0.96 (0.8-1.2)
[2020-05-12 21:21] VITALS: BP 133/95; PULSE 121; RESP 22; O2SAT 97
[2020-05-12] MEDS: sodium chloride 0.9% 1,000 ML 999 ML IV ×2 (21:22→22:03)
[2020-05-12 21:23] LABS: Troponin(5th) Baseline 8 ng/L (0-15)
[2020-05-12 21:29] LABS: Amphetamines Screen Urine Negative (Negative); Barbiturates Screen Urine Negative (Negative); Benzodiazepines Screen Urine Positive (Negative); Cocaine Screen Urine Negative (Negative); Opiate Screen Urine Negative (Negative); PCP Screen Urine Negative (Negative); THC Screen Urine Negative (Negative)
[2020-05-12 21:30] VITALS: BP 139/97; PULSE 109; RESP 21; O2SAT 97
[2020-05-12 21:32] LABS: Alanine Aminotransferase 73 U/L (0-41); Albumin Level 4.1 g/dL (3.5-5.2); Alkaline Phosphatase 67 IU/L (40-130); Anion Gap 13.4 (5-19); Aspartate Amino Transferase 98 U/L (0-40); Blood Urea Nitrogen 9 mg/dL (6-20); Calcium 9.4 mg/dL (8.5-10.5); Carbon Dioxide 24 mmol/L (22-29); Chloride 100 mmol/L (98-107); Globulin 3.4 g/dL (1.3-4.6); Glomerular Filtration Rate 73.1 mL/min (90-130); Glucose 136 mg/dL (65-115); Lipase 25 U/L (13-60); Magnesium 1.5 mg/dL (1.7-2.3); Osmolality Calculated 276 mOsm/kg (285-295); Potassium 3.4 mmol/L (3.5-5.1); Sodium 134 mmol/L (136-145); Total Bilirubin 0.6 mg/dL (0.15-1.2); Total Protein 7.5 g/dL (6.6-8.7)
[2020-05-12] MEDS: magnesium sulfate premix 2 GM/50 ML PIGGYBACK IV (21:48)
[2020-05-12 21:52] LABS: Alcohol Level < 10 mg/dL (0-10); Creatine Phosphokinase 5930 U/L (39-308)
[2020-05-12] MEDS: potassium chloride ER 10 mEq Tablet 40 MEQ PO (21:55)
--- NOTE | 2020-05-12 22:35 | ECG_ITS ---
[facility] Test Date: 2020-05-12 Pat Name: Chris Junior Department: Room: Gender: Male Sap Director: : 1975 Requested By: Jaylene Barth Order Number: [id number] Murrieta MD: Elda Green M.D. Measurements Intervals [place] Rate: 109 P: 46 CT: 162 QRS: 64 QRSD: 102 T: -1 QT: 330 QTc: 446 Interpretive Statements SINUS TACHYCARDIA ABNORMAL QRS-T ANGLE [QRS-T AXIS DIFFERENCE > 60] Compared to ECG 05/12/2020 17:07:17 No significant changes Electronically Signed On 05-13-2020 20:36:21 CDT by Elda Green M.D. [email or web address]
--- NOTE | 2020-05-12 22:36 | PC.NURSE ---
while at bedside ivremoved pt instructed that dc instructions would be provided and vs would be taken and he would go. pt stated nah i just want to go. upon dc pt is amb with a steady gait unassisted. pt is in nad.
== END 2020-05-12 22:38 | disposition left against medical advice (07) ==
PROVIDERS: Emergency Provider Emergency Medicine; PCP Family Medicine
DX: M62.82 Rhabdomyolysis (principal); Z79.4 Long term (current) use of insulin; F17.210 Nicotine dependence, cigarettes, uncomplicated; E78.5 Hyperlipidemia, unspecified; I10 Essential (primary) hypertension; E11.9 Type 2 diabetes mellitus without complications; Z79.899 Other long term (current) drug therapy
CPT/HCPCS: 12345; 36415; 71045; 76705; 80053; 80306; 80307; 81001; 82550; 83605; 83690; 83735; 84443; 84484; 85025; 85610; 93005; 96361; 96365; 96375; 99283; 99284; J2405; J3475; J7030

== ENCOUNTER 2020-05-13 01:03 | Emergency (ER) | payer MEDICARE, MEDICAID, SELFPAY ==
[2020-05-13 01:05] VITALS: BP 120/69; PULSE 98; RESP 17; TEMP 37; O2SAT 96; BMI 28.8
--- NOTE | 2020-05-13 01:13 | W.ED.BACK ---
HPI - Back Pain/Injury General: Chief Complaint: Back Pain/Injury Stated Complaint: back pain Time Seen by Provider: 05/13/20 01:10 History of Present Illness: HPI Narrative: Patient is a 44-year-old male that comes to the ED for lower back pain. Patient was seen here in the ED twice earlier today. [facility] that started after he was walking just prior to arrival. Denies any falls, trauma, lifting or any other injury to cause pain. Back pain is localized to the left lower region and does not radiate down the legs. Denies any numbness tingling or weakness to extremities, bladder or bowel incontinence or any loss of sensation in the pelvic area. Associated symptoms: Deny abdominal pain, chills, dysuria, fatigue, fever(s), hematuria, nausea or vomiting Review of Systems Const: Denies: fever(s), chills or fatigue Eyes: Denies: change in vision or eye discomfort ENMT: Denies: throat pain, odynophagia, nasal discharge or nasal congestion Card: Denies: chest pain, palpitations, edema, swelling of feet/ankles, dyspnea on exertion or orthopnea Resp: Denies: dyspnea, productive cough or non-productive cough GI: Denies: abdominal pain, nausea, vomiting, diarrhea, constipation or hematochezia : Denies: flank pain, difficulty urinating, dysuria or hematuria Musc: Reports: back pain; Denies: neck pain or extremity swelling Skin/Breast: Denies: rash or new lesions Neuro: Denies: headache(s), numbness in extremities or weakness in extremities PFSH ED PFSH: Medical History ADD (attention deficit disorder) Carpal tunnel syndrome Chest pain Chronic pain syndrome GERD (gastroesophageal reflux disease) Hematuria Hyperlipidemia Hypertension Irritable bowel syndrome Peptic ulcer disease Tobacco use Type 2 diabetes mellitus Type 2 diabetes mellitus with hyperglycemia Unable to tolerate higher doses of metformin Surgical History H/O neck surgery H/O wrist surgery R History of back surgery History of carpal tunnel surgery L Family History Family/Other No problems noted. Other Adopted Social History Smoking and tobacco status: current every day smoker cigarettes Packs smoked per day: 0.5 [ Other cigarette details: Says has been cutting down ] and smokeless tobacco Quit status (tobacco): considering quitting Second hand smoke exposure: Yes Smoking risk assessment/counseling performed?: No Alcohol intake: current Alcohol intake frequency: holidays/special occasions only Alcohol type: hard liquor Desire information about alcohol rehabilitation?: No Lives independently: Yes Household members: spouse Marital status: Current occupational status: unemployed Current gender identity: Male Physical Exam Const: COMMON NORMALS: no acute distress, patient oriented x3 and alert GENERAL APPEARANCE: cooperative and comfortable HENMT: COMMON NORMALS: normocephalic HEAD & SCALP: normocephalic MOUTH: Normal oral and palatal mucosa present THROAT: posterior oropharynx normal and uvula midline Eye: COMMON NORMALS: Equal, round and reactive pupils present PUPIL: Yes Equal, round and reactive pupils present Neck/C-Spine: COMMON NORMALS: supple GENERAL: Yes normal visual inspection Resp: COMMON NORMALS: normal respiratory effort, No retractions, No use of accessory muscles and clear to auscultation bilaterally AUSCULTATION: clear to auscultation bilaterally Cardio: COMMON NORMALS: regular rate, regular rhythm, S1 normal heart sound present, S2 normal heart sound present, No gallops present (Cardio), No clicks present (Cardio), No murmurs present (Cardio) and Peripheral pulses 2+ throughout RATE: regular rate RHYTHM: regular rhythm HEART SOUNDS: S1 normal heart sound present and S2 normal heart sound present PERIPHERAL PULSES: Peripheral pulses 2+ throughout GI: COMMON NORMALS: Normal to inspection, nondistended, normoactive bowel sounds present, Soft to palpation, non-tender and no masses INSPECTION: Yes central obesity PALPATION: Yes Soft to palpation : COMMON NORMALS: Yes no CVA tenderness BLADDER/KIDNEY EXAM: Yes no CVA tenderness Back/Pelvis: COMMON NORMALS: no CVA tenderness LUMBAR SPINE/LOWER BACK: Yes paraspinal muscle tenderness Lumbar paraspinal muscle tenderness: left Extremity: COMMON NORMALS: normal to inspection Neuro: COMMON NORMALS: patient oriented x3 and moves all extremities SENSORIUM/ORIENTATION: Yes alert Skin: COMMON NORMALS: no rashes or lesions noted GENERAL SKIN EXAM: no rashes or lesions noted and dry skin Course Vital Signs: Vital signs: Vital Signs Temperature 98.6 F 05/13/20 01:05 Pulse Rate 114 H 05/13/20 01:18 Respiratory Rate 18 05/13/20 01:18 Blood Pressure 123/91 05/13/20 01:18 Pulse Oximetry 96 05/13/20 01:18 MDM - Back Pain/Injury MDM Narrative: Medical decision making narrative: Patient is a 44-year-old male who comes to the ED with lower back pain. This is patient's third visit to the ED today. Patient states that he started getting low back pain when he was walking. Denies any falls, trauma, lifting or any other injury to cause pain. , Numbness weakness or tingling to extremitiesPain radiating down his leg, bladder or bowel incontinence or pelvic anesthesia. Patient was given a dose of Norflex and oxycodone while here in the ED. Patient was then discharged and told to follow-up with his healthcare provider in the next week. Return to ED if symptoms worsen. Patient understood and agreed with plan. Discharge Plan Discharge Patient Disposition: Home, Self-Care Clinical Impression: Left lumbar pain Qualifiers: Chronicity: acute Sciatica presence: without sciatica Qualified Code(s): M54.5 - Low back pain Condition: Stable Prescriptions: No Action dicyclomine 10 mg capsule 10 mg PO QID PRN (Reason: abdominal discomfort) 30 Days Qty: 60 RF: 2 Lantus Solostar U-100 Insulin 100 unit/mL (3 mL) insulin pen 20 unit SUBCUT DAILY 30 Days Qty: 6 RF: 2 albuterol sulfate [ProAir HFA] 90 mcg/actuation HFA aerosol inhaler 1 - 2 puff INHALATION Q6H PRN (Reason: shortness of breath or wheezing) 30 Days Qty: 18 RF: 2 cyclobenzaprine 10 mg tablet 10 mg PO TID PRN (Reason: muscle spasm) 30 Days Qty: 90 RF: 2 gabapentin 400 mg capsule 400 mg PO TID RF: 0 clonazepam 1 mg tablet 1 mg PO QID RF: 0 omeprazole 20 mg Capsule,Delayed Release(Dr/Ec) 40 mg PO DAILY RF: 0 mirtazapine 15 mg Tablet 15 mg PO DAILY RF: 0 diazepam 10 mg Tablet 10 mg PO TID PRN (Reason: Anxiety) RF: 0 risperidone 1 mg Tablet 1 mg PO BEDTIME RF: 0 quetiapine 50 mg Tablet 150 mg PO BEDTIME RF: 0 oxycodone 10 mg Tablet 10 mg PO Q6H PRN (Reason: Pain) RF: 0 vilazodone 40 mg Tablet 40 mg PO DAILY RF: 0 ibuprofen 800 mg Tablet 800 mg PO TID PRN (Reason: Pain) RF: 0 Invokana 300 mg Tablet 300 mg PO DAILY RF: 0 lisinopril 5 mg tablet 5 mg PO DAILY RF: 0 lovastatin 20 mg tablet 20 mg PO DAILY RF: 0 metformin 500 mg tablet extended release 24 hr 500 mg PO DAILY RF: 0 Discharge Orders: Discharge Order (Routine); Ordered 05/13/20 Ordered By: Juanjo Leon Referrals: Usha López MD [Primary Care Provider] - Discharge Diet: Regular Discharge Activity: Increase activity as tolerated Patient Instructions: Acute Low Back Pain (ED) Activity Restrictions/Additional Instructions: Follow-up with medical provider as directed. Continue taking all home medications as prescribed. Apply cold pack or heat on lower back to help with symptoms and rest. Stretch lower back out daily. Return to the ER or your medical provider if condition worsens. Please read and understand discharge instructions. If any questions, please ask. Coding Level of Care Code ED Food Consultant for Marcos Fwchioma Exam Comprehensive
[2020-05-13 01:18] VITALS: BP 123/91; PULSE 114; RESP 18; O2SAT 96
[2020-05-13 01:39] VITALS: RESP 18; O2SAT 98
[2020-05-13] MEDS: oxyCODONE 5 mg IR Tab/Cap 10 MG PO (01:39)
[2020-05-13] MEDS: orphenadrine 30 mg/mL Inj 2 mL 60 MG IM (01:39)
--- NOTE | 2020-05-13 01:57 | PC.NURSE ---
[id number] patient informed of ride.
[2020-05-13 02:02] VITALS: BP 123/91; PULSE 113; RESP 18; O2SAT 95
== END 2020-05-13 02:03 | disposition home or self-care (01) ==
PROVIDERS: Emergency Provider Physician Assistant; PCP Family Medicine
DX: M54.5 Low back pain (principal); Z79.4 Long term (current) use of insulin; E78.5 Hyperlipidemia, unspecified; I10 Essential (primary) hypertension; E11.9 Type 2 diabetes mellitus without complications; F17.210 Nicotine dependence, cigarettes, uncomplicated
CPT/HCPCS: 12345; 96372; 99281; 99283; J2360

== ENCOUNTER → 2020-05-14 13:48 | Outpatient (BNVA) | payer MEDICARE, MEDICAID, SELFPAY | PROVIDERS: PCP Family Medicine; Visit Provider Specialist | DX: M25.532 Pain in left wrist (principal) | CPT/HCPCS: 73110 ==

== ENCOUNTER 2020-05-14 14:43 | Outpatient (CLI) | payer MEDICARE, MEDICAID, SELFPAY | END 2020-05-14 14:44 | disposition home or self-care (01) | LOC: SPT 14:43 | PROVIDERS: PCP Family Medicine; Visit Provider Specialist | DX: Z46.89 Encounter for fitting and adjustment of other specified devices (principal); M65.312 Trigger thumb, left thumb | CPT/HCPCS: 97760; L3809 ==

== ENCOUNTER 2020-05-17 18:33 | Inpatient (IN) | payer MEDICARE, MEDICAID, SELFPAY ==
[2020-05-17] VITALS (27 sets, daily range): BP systolic 126–155; BP diastolic 72–109; PULSE 92–111; RESP 14–24; TEMP 36.8–36.9; O2SAT 90–100; BMI 27.3
--- NOTE | 2020-05-17 18:59 | XRR_ITS ---
PROCEDURE INFORMATION: Exam: XR Chest, 1 View Exam date and time: 05/17/2020 7:55 PM Age: 44 years old Clinical indication: Other: AMS TECHNIQUE: Imaging protocol: XR of the chest Views: 1 view. COMPARISON: CR XR chest 1V portable [id number] 05/12/2020 8:48 PM FINDINGS: Lungs: Lungs are well aerated without a focal area of consolidation. Pleural space: Unremarkable. No pleural effusion. No pneumothorax. Heart/Mediastinum: The cardiac silhouette appears enlarged, some of which is magnification related to the AP projection. Bones/joints: Unremarkable. XR/XR chest 1V portable [id number] IMPRESSION: Lungs are well aerated without a focal area of consolidation.
--- NOTE | 2020-05-17 19:00 | CTR_ITS ---
PROCEDURE INFORMATION: Exam: CT Head Without Contrast Exam date and time: 05/17/2020 7:11 PM Age: 44 years old Clinical indication: Altered mental status/memory loss; Confusion or disorientation; Patient HX: AMS - non compliant TECHNIQUE: Imaging protocol: Computed tomography of the head without contrast. Radiation optimization: All CT scans at this facility use at least one of these dose optimization techniques: automated exposure control; mA and/or kV adjustment per patient size (includes targeted exams where dose is matched to clinical indication); or iterative reconstruction. COMPARISON: CT head wo con* [id number] 05/09/2020 9:24 PM RADIATION DOSE METRICS: Total DLP (mGy-cm): 1286.74 FINDINGS: Brain: No visible evidence of acute intracranial pathologic process. No hemorrhage. Unremarkable white matter. No mass effect. Ventricles: Normal. No ventriculomegaly. Bones/joints: Unremarkable. No acute fracture. Sinuses: Visualized sinuses are unremarkable. No fluid levels. Mastoid air cells: Visualized mastoid air cells are well aerated. Soft tissues: Unremarkable. Other findings: Motion artifact. CT/CT head wo con* [id number] IMPRESSION: No visible evidence of acute intracranial pathologic process. Radiation Dose CTDIVOL = (mGy): DLP = 1286.74 (mGy-cm)
[2020-05-17 19:12] LABS: Basophils # 0.1 10^3/uL (0.0-0.1); Basophils % 0.4 %; Eosinophils # 0.1 10^3/uL (0.0-0.8); Eosinophils % 0.8 %; Hematocrit 39.9 % (42.0-52.0); Hemoglobin 12.1 g/dL (11.7-16.6); Lymphocytes # 2.1 10^3/uL (0.8-4.8); Lymphocytes % 15.2 %; Mean Corpuscular HGB Conc 30.3 g/dL (30.0-36.0); Mean Corpuscular Hemoglobin 27.1 pg (28.0-34.0); Mean Corpuscular Volume 89.3 fL (80-94); Monocytes # 1.5 10^3/uL (0.2-0.9); Monocytes % 11.4 %; Neutrophils # 9.63 10^3/uL (1.8-7.7); Neutrophils % 71.5 %; Nucleated Red Blood Cells % 0 %; Platelet Count 299 10^3/cmm (130-400); Red Blood Count 4.47 10^6/uL (4.1-5.3); Red Cell Distribution Width 14.7 % (12.1-15.1); White Blood Count 13.5 10^3/uL (4.0-10.0)
--- NOTE | 2020-05-17 19:27 | PC.NURSE ---
patient to CT
[2020-05-17 19:28] LABS: Alanine Aminotransferase 64 U/L (0-41); Albumin Level 4.5 g/dL (3.5-5.2); Alkaline Phosphatase 68 IU/L (40-130); Anion Gap 15.6 (5-19); Aspartate Amino Transferase 43 U/L (0-40); Blood Urea Nitrogen 16 mg/dL (6-20); Calcium 9.7 mg/dL (8.5-10.5); Carbon Dioxide 24 mmol/L (22-29); Chloride 106 mmol/L (98-107); Globulin 3.3 g/dL (1.3-4.6); Glomerular Filtration Rate 55.3 mL/min (90-130); Glucose 127 mg/dL (65-115); Osmolality Calculated 292 mOsm/kg (285-295); Potassium 3.6 mmol/L (3.5-5.1); Sodium 142 mmol/L (136-145); Total Bilirubin 0.3 mg/dL (0.15-1.2); Total Protein 7.8 g/dL (6.6-8.7)
[2020-05-17 19:29] LABS: Acetaminophen < 5.0 ug/mL (10-30); Alcohol Level < 10 mg/dL (0-10); Lactic Sepsis W/Reflex 1.9 mmol/L (0.5-2.2); Salicylate < 0.3 mg/dL (3-10)
--- NOTE | 2020-05-17 19:54 | PC.NURSE ---
patient given urinal for urine sample, patient states he cannot pee at this time.
[2020-05-17 19:59] LABS: Ammonia 43 umol/L (16-60)
[2020-05-17 20:18] LABS: Creatine Phosphokinase 513 U/L (39-308)
--- NOTE | 2020-05-17 20:27 | PC.NURSE ---
Restraints removed at 2024 from patient bilateral arms per verbal order from Dr Harrell.
[2020-05-17] MEDS: haloperidol inj 5 mg/mL INJ 1 mL 3 MG IVP ×2 (20:34→21:10)
[2020-05-17] MEDS: morphine 4 mg/mL SDV 1 mL IVP (20:34)
[2020-05-17 21:00] LABS: Add Urine Microscopic? NO
[2020-05-17 21:07] LABS: Bilirubin Urine Neg (NEGATIVE); Blood Urine Neg (Negative); Glucose Urine UA 4+ (Normal); Ketones Urine Negative (Negative); Leukocyte Esterase Urine Negative (Negative); Nitrate Urine Negative (Negative); Protein Urine Neg (Negative); Urine Appearance Clear (CLEAR); Urine Color Yellow (Yellow); Urobilinogen Urine Norm (Negative); pH Urine 6 (5-7)
[2020-05-17] MEDS: LORazepam 2 mg/mL INJ 1 mL IVP (21:10)
[2020-05-17 21:13] LABS: Amphetamines Screen Urine Negative (Negative); Barbiturates Screen Urine Negative (Negative); Benzodiazepines Screen Urine Positive (Negative); Cocaine Screen Urine Negative (Negative); Opiate Screen Urine Negative (Negative); PCP Screen Urine Negative (Negative); THC Screen Urine Negative (Negative)
[2020-05-18 06:00] VITALS: BP 103/78; PULSE 96; RESP 20; TEMP 36.6; O2SAT 94
[2020-05-18 06:50] LABS: Glucose Point of Care 122 mg/dL (70-110)
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
[2020-05-18] MEDS: metformin XR 500 MG Tablet PO (08:20)
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
[2020-05-18 14:00] VITALS: BP 117/69; PULSE 82; RESP 18; TEMP 36.5; O2SAT 98
[2020-05-18] MEDS: atorvastatin 40 mg Tablet 20 MG PO (16:33)
[2020-05-18] MEDS: gabapentin 400 mg Capsule PO ×2 (16:33→21:18)
[2020-05-18] MEDS: lisinopril 5 mg Tablet PO (16:33)
[2020-05-18] MEDS: pantoprazole DR 40 mg Tablet PO (16:33)
[2020-05-18] MEDS: metoprolol succinate ER (24 HR) 50 mg Tablet PO (16:33)
[2020-05-18 18:07] LABS: Glucose Point of Care 152 mg/dL (70-110)
[2020-05-18 20:17] VITALS: BP 98/63; PULSE 89; RESP 17; TEMP 36.7; O2SAT 95
[2020-05-18 21:02] LABS: Glucose Point of Care 143 mg/dL (70-110)
[2020-05-18] MEDS: insulin glargine 100 units/1 mL 10 UNIT SUBCUT (21:18)
[2020-05-18] MEDS: hyDROXYzine 25 mg Capsule 50 MG PO (21:18)
--- NOTE | 2020-05-19 03:45 | PC.NURSE ---
At HS, pt was given scheduled gabapentin and lantus. pt was also given PRN trazodone and vistaril per request.
[2020-05-19 06:00] VITALS: BP 105/64; PULSE 85; RESP 14; TEMP 37.3; O2SAT 93
[2020-05-19 06:37] LABS: Glucose Point of Care 118 mg/dL (70-110)
[2020-05-19] MEDS: cyclobenzaprine 10 mg Tablet PO ×3 (07:31→22:54)
[2020-05-19 08:24] VITALS: PULSE 87; RESP 16; O2SAT 97
[2020-05-19] MEDS: metoprolol succinate ER (24 HR) 50 mg Tablet PO (08:44)
[2020-05-19] MEDS: gabapentin 400 mg Capsule PO ×3 (08:44→21:13)
[2020-05-19] MEDS: lisinopril 5 mg Tablet PO (08:45)
[2020-05-19] MEDS: pantoprazole DR 40 mg Tablet PO (08:45)
[2020-05-19] MEDS: atorvastatin 40 mg Tablet 20 MG PO (08:45)
[2020-05-19] MEDS: metformin XR 500 MG Tablet PO (08:45)
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
[2020-05-19 14:00] VITALS: BP 115/64; PULSE 86; RESP 18; TEMP 36.8; O2SAT 96
[2020-05-19 17:16] LABS: Glucose Point of Care 143 mg/dL (70-110)
[2020-05-19 19:43] LABS: Glucose Point of Care 173 mg/dL (70-110)
[2020-05-19 19:59] VITALS: BP 111/71; PULSE 98; RESP 17; TEMP 37.1; O2SAT 94
[2020-05-19] MEDS: hyDROXYzine 25 mg Capsule 50 MG PO (21:13)
[2020-05-19] MEDS: quetiapine 25 mg Tablet 50 MG PO (21:13)
[2020-05-19] MEDS: trazodone 50 mg Tablet PO (21:13)
[2020-05-19] MEDS: insulin glargine 100 units/1 mL 10 UNIT SUBCUT (21:13)
[2020-05-19] MEDS: haloperidol 5 mg Tablet PO (23:05)
[2020-05-20 06:00] VITALS: BP 143/67; PULSE 71; RESP 15; TEMP 36.7; O2SAT 94
[2020-05-20] MEDS: cyclobenzaprine 10 mg Tablet PO ×2 (06:25→21:24)
[2020-05-20 06:58] LABS: Glucose Point of Care 155 mg/dL (70-110)
[2020-05-20] MEDS: gabapentin 400 mg Capsule PO ×3 (08:33→21:24)
[2020-05-20] MEDS: quetiapine 25 mg Tablet 50 MG PO (08:34)
[2020-05-20] MEDS: atorvastatin 40 mg Tablet 20 MG PO (08:34)
[2020-05-20] MEDS: lisinopril 5 mg Tablet PO (08:34)
[2020-05-20] MEDS: metformin XR 500 MG Tablet PO (08:34)
[2020-05-20] MEDS: metoprolol succinate ER (24 HR) 50 mg Tablet PO (08:34)
[2020-05-20] MEDS: pantoprazole DR 40 mg Tablet PO (08:34)
[2020-05-20 08:40] VITALS: PULSE 82; RESP 16; O2SAT 93
--- NOTE | 2020-05-20 11:05 | PM.NPN ---
Subjective NPU Subjective: Interval history: Chris presents today reporting that the Seroquel that we started yesterday was a little strong, compared to what he remembered. The 50 mg po tid was a bit much and we discussed the risks, benefits, and alternatives of decreasing in half, to 25 mg po tid, and he understood and agreed to proceed as is documented in this note. We discussed the fact that we had started it based on his recollection of how he responded to it, and it was just ultimately too much for him. He was also talking about having some stomach issues that were bothering him, and he is looking forward to this appointment in May to figure out what has been going on with him. He reports that he is tolerating the medications well, otherwise, and he reports that he is eating and sleeping better. We discussed the plan for discharge tomorrow which he was happy about. Mental Status Exam MSE Comments: This is an overweight, white male, with significant tattooing on his exposed arms and neck. No abnormal movements, except for psychomotor retardation. Cooperative with exam in no acute distress. Speech was slightly decreased rate and normal volume, but with less dysarthria. Mood described as better; affect slightly subdued. Thought process, organized. Thought content: patient denied any suicidal or homicidal ideation, there were no delusions reported or noted, patient denied any auditory or visual hallucinations. Attention, concentration, and memory appear intact but none were formally tested. He is alert and oriented times three. Insight and judgment are improving. Impulse control is impaired, but improving. Vitals/I&O/Wt Last Vital Signs Temp 98.0 F 05/20/20 20:29 Pulse 69 05/20/20 20:29 Resp 18 05/20/20 20:29 BP 104/75 05/20/20 20: Pulse Ox 95 05/20/20 20:29 Data NPU : 05/17/20 19:05 05/17/20 19:05 A&P Additional A&P Information (1) Acute alteration in mental status: (2) Bipolar 1 disorder: (3) Substance induced mood disorder: (4) Substance use disorder: This is a 44 year old, white male, with a history of bipolar disorder, and intermittent explosive disorder, who presents reporting that he is not sure why he is here or why he would do what they said he did, because he denies recollection of the events. Continue current medications, except: decrease Seroquel to 25 mg po tid We will try to get him to consider starting medication, right now he is refusing any medications. Encourage individual, group, and milieu therapy. Continue q-15 minute checks for safety. Involuntary Hold Information 96 Hour Hold: 96 Hour Involuntary Admission: Yes 96 Hour Hold Ending Date: 05/22/20 96 Hour Hold Ending Time: 12:01 Attestations NPU Medical Necessity Statement*: Inpatient hospitalization is medically necessary and the clinically appropriate intervention at this time. We will offer medications and make adjustments as indicated. We will evaluate for safety on a 96-hour hold. Likely length of stay is 1-3 days. 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
[2020-05-20 11:27] LABS: Glucose Point of Care 311 mg/dL (70-110)
[2020-05-20 14:00] VITALS: BP 99/64; PULSE 82; RESP 18; TEMP 36.4; O2SAT 97
[2020-05-20] MEDS: quetiapine 25 mg Tablet PO ×2 (14:36→21:24)
[2020-05-20 19:31] VITALS: PULSE 80; RESP 18; O2SAT 90
[2020-05-20 20:17] LABS: Glucose Point of Care 140 mg/dL (70-110)
[2020-05-20 20:29] VITALS: BP 104/75; PULSE 69; RESP 18; TEMP 36.7; O2SAT 95
[2020-05-20] MEDS: hyDROXYzine 25 mg Capsule 50 MG PO (21:24)
[2020-05-20] MEDS: trazodone 50 mg Tablet PO (21:24)
[2020-05-20] MEDS: insulin glargine 100 units/1 mL 10 UNIT SUBCUT (22:04)
--- NOTE | 2020-05-20 23:14 | PC.NURSE ---
pt given scheduled seroquel, gabapentin, lantus and PRN trazodone, vistaril, flexeril
[2020-05-21] MEDS: lactulose oral liq 20 gm/30 mL UDC 30 GM PO (01:31)
[2020-05-21 06:00] VITALS: BP 112/65; PULSE 90; RESP 13; TEMP 36.6; O2SAT 96
[2020-05-21 06:53] LABS: Glucose Point of Care 104 mg/dL (70-110)
[2020-05-21] MEDS: pantoprazole DR 40 mg Tablet PO (07:11)
[2020-05-21] MEDS: cyclobenzaprine 10 mg Tablet PO (07:11)
[2020-05-21] MEDS: lisinopril 5 mg Tablet PO (08:00)
[2020-05-21] MEDS: metformin XR 500 MG Tablet PO (08:00)
[2020-05-21] MEDS: metoprolol succinate ER (24 HR) 50 mg Tablet PO (08:00)
[2020-05-21] MEDS: atorvastatin 40 mg Tablet 20 MG PO (08:00)
[2020-05-21] MEDS: gabapentin 400 mg Capsule PO (08:00)
[2020-05-21] MEDS: quetiapine 25 mg Tablet PO (08:02)
--- NOTE | 2020-05-21 08:05 | P.PN_ITS ---
Subjective Subjective: Interval history: The patient was due to have an appointment for follow-up on his carpal tunnel. He is seen on the MPU unit with nursing. Vitals/I&O/Wt Last Vital Signs Temp 97.9 F 05/21/20 06:00 Pulse 90 05/21/20 06:00 Resp 13 05/21/20 06:00 BP 112/65 05/21/20 06:00 Pulse Ox 96 05/21/20 06:00 Physical Exam Narrative: EXAM NARRATIVE: Patient is in a thumb spica splint. This is removed. His wounds appear healed and are benign. There is no drainage. Data : 05/17/20 19:05 05/17/20 19:05 A&P Assessment and plan (1) Carpal tunnel syndrome, left: Patient is status post left carpal tunnel release. He notes he is doing well. His symptoms have resolved. There is no evidence of issue with the incision. He has good range of motion. Sutures will be discontinued by the nursing staff. Secondary to difficulty with transportation etc., I have asked patient to follow-up with me only on a as needed basis. Status: Acute Attestations Medical Necessity Statement*: Per NPU team Coding Level of Care Code Acute Chairman & Co Founder for Marcos Scott Diagnoses Carpal tunnel syndrome, left G56.02
[2020-05-21 11:32] LABS: Glucose Point of Care 139 mg/dL (70-110)
[2020-05-21 12:04] VITALS: BP 104/70; PULSE 74; RESP 18; TEMP 36.8; O2SAT 98
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
== END 2020-05-21 13:29 | disposition home or self-care (01) | DRG 881 ==
LOC: ER 19:08 → NP 21:44
PROVIDERS: Emergency Medicine; Physician Assistant; Admitting Provider Psychiatry & Neurology Psychiatry; PCP Family Medicine; Visit Provider Psychiatry & Neurology Psychiatry
DX: F32.9 Major depressive disorder, single episode, unspecified (principal); F10.229 Alcohol dependence with intoxication, unspecified; F91.1 Conduct disorder, childhood-onset type; G56.02 Carpal tunnel syndrome, left upper limb; F17.210 Nicotine dependence, cigarettes, uncomplicated; E11.9 Type 2 diabetes mellitus without complications; Z79.84 Long term (current) use of oral hypoglycemic drugs
CPT/HCPCS: 12345; 36415; 36416; 70450; 71045; 73110; 80053; 80306; 80307; 81003; 82140; 82550; 82962; 83605; 85025; 96372; 96375; 97760; 99285; J1630; J1815; J2060; J2270; L3809

== ENCOUNTER 2020-05-23 21:42 | Emergency (ER) | payer MEDICARE, MEDICAID, SELFPAY ==
[2020-05-23 21:50] VITALS: BP 122/78; PULSE 94; RESP 18; TEMP 37; O2SAT 98; BMI 30.2
--- NOTE | 2020-05-23 21:57 | ED_ITS ---
HPI - Abdominal Pain General: Chief Complaint: Abdominal Pain Stated Complaint: upper abd pain and bloating, weight gain Time Seen by Provider: 05/23/20 21:52 Source: patient Mode of arrival: ambulatory Limitations: no limitations History of Present Illness: HPI narrative: 44-year-old male states he has been having diffuse abdominal cramping over the last 2 to 3 weeks. Patient's had some nausea with no vomiting. Denies any fevers. Denies any worsening improving factors. Patient was seen at [facility] 2-day with no findings there. MD elicited complaint: abdominal pain Pertinent past history: none Onset (ago): week(s) Pain Consistency: constant Location: Diffuse Severity: moderate Quality: cramping Radiation: none Exacerbating factors: nothing Relieving factors: nothing Associated Symptoms: Reports nausea; Denies chills, dysuria and fever(s) Review of Systems Const: Denies: fever(s), chills, body aches or change in appetite Eyes: Denies: blurry vision or eye discomfort ENMT: Denies: throat pain or dental pain Card: Denies: chest pain Resp: Denies: dyspnea GI: Reports: abdominal pain and nausea : Denies: dysuria Musc: Denies: neck pain or back pain Skin/Breast: Denies: rash Neuro: Denies: headache(s) Psych: Denies: depression Nba/Lymph: Denies: easy bruising All/Imm: Denies: urticaria PFSH ED PFSH: Medical History (Updated 05/23/20 @ 22:32 by Timothy Bello MD) ADD (attention deficit disorder) Carpal tunnel syndrome Chest pain Chronic pain syndrome GERD (gastroesophageal reflux disease) Hematuria History of hepatitis Hyperlipidemia Hypertension Irritable bowel syndrome Peptic ulcer disease Tobacco use Type 2 diabetes mellitus Type 2 diabetes mellitus with hyperglycemia Unable to tolerate higher doses of metformin Surgical History H/O neck surgery H/O wrist surgery R History of back surgery History of carpal tunnel surgery L Family History Family/Other No problems noted. Other Adopted Social History Smoking and tobacco status: current every day smoker cigarettes Packs smoked per day: 0.5 [ Other cigarette details: Says has been cutting down ] and smokeless tobacco Quit status (tobacco): considering quitting Second hand smoke exposure: Yes Smoking risk assessment/counseling performed?: No Alcohol intake: current Alcohol intake frequency: holidays/special occasions only Alcohol type: hard liquor Desire information about alcohol rehabilitation?: No Lives independently: Yes Household members: spouse Marital status: Current occupational status: unemployed Current gender identity: Male Physical Exam Const: COMMON NORMALS: no acute distress, patient oriented x3 and healthy appearing HENMT: COMMON NORMALS: normocephalic and atraumatic HEAD & SCALP: normocephalic and atraumatic Eye: COMMON NORMALS: Equal, round and reactive pupils present and EOMs intact bilaterally PUPIL: Yes Equal, round and reactive pupils present Neck/C-Spine: COMMON NORMALS: full ROM and supple Chest: COMMONS NORMALS: normal inspection of the chest and normal palpation of entire chest wall Resp: COMMON NORMALS: normal respiratory effort, No retractions, No use of accessory muscles and clear to auscultation bilaterally AUSCULTATION: clear to auscultation bilaterally Cardio: COMMON NORMALS: regular rate, regular rhythm and No murmurs present (Cardio) RATE: regular rate RHYTHM: regular rhythm GI: COMMON NORMALS: Normal to inspection, nondistended, normoactive bowel sounds present, Soft to palpation, non-tender and no masses PALPATION: Yes Soft to palpation Extremity: COMMON NORMALS: normal to inspection and full ROM Neuro: COMMON NORMALS: patient oriented x3, moves all extremities and no focal motor deficits Psych: COMMON NORMALS: mental status grossly normal, Normal thought process present and cooperative THOUGHT PROCESS: Normal thought process present Skin: COMMON NORMALS: no rashes or lesions noted and no wounds GENERAL SKIN EXAM: no rashes or lesions noted Course Vital Signs: Vital signs: Vital Signs Temperature 98.6 F 05/23/20 21:50 Pulse Rate 100 05/23/20 22:41 Respiratory Rate 18 05/23/20 22:41 Blood Pressure 111/67 05/23/20 22:41 Pulse Oximetry 96 05/23/20 22:41 MDM - Abdominal Pain MDM Narrative: Medical decision making narrative: Chris presents here with abdominal pain is been chronic in nature. Patient's had recent ultrasounds and CT scans have been normal. Patient's lab work here is normal as well. Patient is stable for discharge and is to follow-up with primary care doctor in 3 to 5 days and return if worsening. Lab Data: Labs: Lab Results 05/23/20 05/23/20 Range/Units 21:55 21:55 WBC 11.1 H (4.0-10.0) 10^3/ uL RBC 4.75 (4.1-5.3) 10^6/u L Hgb 13.0 (11.7-16.6) g/dL Hct 41.8 L (42.0-52.0) % MCV 88.0 (80-94) fL MCH 27.4 L (28.0-34.0) pg MCHC 31.1 (30.0-36.0) g/dL RDW 14.6 (12.1-15.1) % Plt Count 301 (130-400) 10^3/c mm MPV 10.1 (7.4-10.4) fL Neut % (Auto) 73.0 % Lymph % (Auto) 13.7 % Canadian % (Auto) 10.8 % Eos % (Auto) 1.7 % Baso % (Auto) 0.4 % Neut # (Auto) 8.09 H (1.8-7.7) 10^3/u L Lymph # (Auto) 1.5 (0.8-4.8) 10^3/u L Canadian # (Auto) 1.2 H (0.2-0.9) 10^3/u L Eos # (Auto) 0.2 (0.0-0.8) 10^3/u L Baso # (Auto) 0.0 (0.0-0.1) 10^3/u L Nucleated RBC % (a uto) 0 % Nucleated RBCs # 0.0 /100WBC Sodium 138 (136-145) mmol/L Potassium 3.9 (3.5-5.1) mmol/L Chloride 103 (98-107) mmol/L Carbon Dioxide 24 (22-29) mmol/L Anion Gap 14.9 (5-19) BUN 15 (6-20) mg/dL Creatinine 1.5 H (0.7-1.2) mg/dL GFR Calculation 51.1 L (90-130) mL/min Glucose 139 H (65-115) mg/dL Calculated Osmolal ity 285 (285-295) mOsm/k g Calcium 9.6 (8.5-10.5) mg/dL Total Bilirubin 0.4 (0.15-1.2) mg/dL AST 45 H (0-40) U/L ALT 87 H (0-41) U/L Alkaline Phosphata se 88 (40-130) IU/L Total Protein 8.3 (6.6-8.7) g/dL Albumin 4.8 (3.5-5.2) g/dL Globulin 3.5 (1.3-4.6) g/dL Lipase 54 (13-60) U/L Discharge Plan Discharge Patient Disposition: Home Clinical Impression: Abdominal pain Qualifiers: Abdominal location: generalized Qualified Code(s): R10.84 - Generalized abdominal pain Condition: Stable Prescriptions: New ondansetron 4 mg tablet,disintegrating 4 mg PO Q6H PRN (Reason: nausea and vomiting) Qty: 14 RF: 0 No Action dicyclomine 10 mg capsule 10 mg PO QID PRN (Reason: abdominal discomfort) 30 Days Qty: 60 RF: 2 Lantus Solostar U-100 Insulin 100 unit/mL (3 mL) insulin pen 20 unit SUBCUT DAILY 30 Days Qty: 6 RF: 2 albuterol sulfate [ProAir HFA] 90 mcg/actuation HFA aerosol inhaler 1 - 2 puff INHALATION Q6H PRN (Reason: shortness of breath or wheezing) 30 Days Qty: 18 RF: 2 (DME) THUMB SPICA SPLINT See Rx Instructions .Route .MEDSUPPLY Qty: 1 RF: 0 cyclobenzaprine 10 mg tablet 10 mg PO TID PRN (Reason: muscle spasm) 30 Days Qty: 90 RF: 2 metoprolol succinate 50 mg Tablet Extended Release 24 Hr 50 mg PO DAILY RF: 0 Lantus Solostar U-100 Insulin 100 unit/mL (3 mL) Insulin Pen 10 unit SUBCUT BEDTIME RF: 0 quetiapine 25 mg Tablet 25 mg PO TID 30 Days Qty: 90 RF: 1 hydroxyzine pamoate 25 mg Capsule 50 mg PO Q6H PRN (Reason: Anxiety) 30 Days Qty: 120 RF: 1 lactulose 20 gram/30 mL Solution 30 g PO TID PRN (Reason: Constipation) 30 Days Qty: 90 RF: 0 gabapentin 400 mg capsule 400 mg PO TID 30 Days Qty: 90 RF: 1 mirtazapine 15 mg Tablet 15 mg PO DAILY 30 Days Qty: 30 RF: 1 vilazodone 40 mg Tablet 40 mg PO DAILY 30 Days Qty: 30 RF: 1 omeprazole 20 mg Capsule,Delayed Release(Dr/Ec) 40 mg PO DAILY RF: 0 ibuprofen 800 mg Tablet 800 mg PO TID PRN (Reason: Pain, Moderate) RF: 0 Invokana 300 mg Tablet 300 mg PO DAILY RF: 0 lisinopril 5 mg tablet 5 mg PO DAILY RF: 0 lovastatin 20 mg tablet 20 mg PO DAILY RF: 0 metformin 500 mg tablet extended release 24 hr 500 mg PO DAILY RF: 0 Discharge Orders: Discharge Order (Routine); Ordered 05/23/20 Ordered By: Timothy Bello Referrals: Usha López MD [Primary Care Provider] - 1-3 days Discharge Diet: Advance as tolerated Discharge Activity: Resume usual activity Patient Instructions: Abdominal Pain (ED) Discharge Date/Time: 05/23/20 22:42 Coding Level of Care Code ED Recoil Spring Winder for Chg Fwd Exam Comprehensive
[2020-05-23 22:04] LABS: Basophils % 0.4 %; Eosinophils # 0.2 10^3/uL (0.0-0.8); Eosinophils % 1.7 %; Hematocrit 41.8 % (42.0-52.0); Lymphocytes # 1.5 10^3/uL (0.8-4.8); Lymphocytes % 13.7 %; Mean Corpuscular HGB Conc 31.1 g/dL (30.0-36.0); Mean Corpuscular Hemoglobin 27.4 pg (28.0-34.0); Mean Platelet Volume 10.1 fL (7.4-10.4); Monocytes # 1.2 10^3/uL (0.2-0.9); Monocytes % 10.8 %; Neutrophils # 8.09 10^3/uL (1.8-7.7); Nucleated Red Blood Cells % 0 %; Platelet Count 301 10^3/cmm (130-400); Red Blood Count 4.75 10^6/uL (4.1-5.3); Red Cell Distribution Width 14.6 % (12.1-15.1); White Blood Count 11.1 10^3/uL (4.0-10.0)
[2020-05-23] MEDS: metoclopramide 5 mg/mL SDV 2 mL 10 MG IVP (22:07)
[2020-05-23] MEDS: diphenhydrAMINE 50 mg/mL SDV 1mL IVP (22:07)
[2020-05-23 22:18] VITALS: RESP 18
[2020-05-23 22:27] LABS: Alanine Aminotransferase 87 U/L (0-41); Albumin Level 4.8 g/dL (3.5-5.2); Alkaline Phosphatase 88 IU/L (40-130); Anion Gap 14.9 (5-19); Aspartate Amino Transferase 45 U/L (0-40); Blood Urea Nitrogen 15 mg/dL (6-20); Calcium 9.6 mg/dL (8.5-10.5); Carbon Dioxide 24 mmol/L (22-29); Chloride 103 mmol/L (98-107); Globulin 3.5 g/dL (1.3-4.6); Glomerular Filtration Rate 51.1 mL/min (90-130); Glucose 139 mg/dL (65-115); Lipase 54 U/L (13-60); Osmolality Calculated 285 mOsm/kg (285-295); Potassium 3.9 mmol/L (3.5-5.1); Sodium 138 mmol/L (136-145); Total Bilirubin 0.4 mg/dL (0.15-1.2); Total Protein 8.3 g/dL (6.6-8.7)
[2020-05-23 22:41] VITALS: BP 111/67; PULSE 100; RESP 18; O2SAT 96
== END 2020-05-23 22:42 | disposition home or self-care (01) ==
PROVIDERS: Emergency Provider Emergency Medicine; PCP Family Medicine
DX: R10.84 Generalized abdominal pain (principal); Z79.4 Long term (current) use of insulin; E78.5 Hyperlipidemia, unspecified; I10 Essential (primary) hypertension; E11.9 Type 2 diabetes mellitus without complications; F17.210 Nicotine dependence, cigarettes, uncomplicated
CPT/HCPCS: 12345; 80053; 83690; 85025; 96374; 96375; 99282; 99283; J1200; J2765

== ENCOUNTER → 2020-05-28 16:10 | Outpatient (BNVA) | payer MEDICARE, MEDICAID, SELFPAY | PROVIDERS: PCP Family Medicine; Visit Provider Family Medicine | DX: R10.84 Generalized abdominal pain (principal); N18.3 Chronic kidney disease, stage 3 (moderate); F31.9 Bipolar disorder, unspecified | CPT/HCPCS: 81000 ==

== ENCOUNTER 2020-05-29 19:17 | Emergency (ER) | payer MEDICARE, MEDICAID, SELFPAY ==
[2020-05-29 19:33] VITALS: BP 117/66; PULSE 93; RESP 18; TEMP 36.7; O2SAT 93; BMI 28.8
--- NOTE | 2020-05-29 19:52 | W.ED.GENADLT ---
HPI - General Adult General: Chief complaint: General Medical Stated complaint: abnormal labs Time Seen by Provider: 05/29/20 19:51 History of Present Illness: HPI narrative: concerned about patient's abnormal labs he was seen up at [facility] yesterday was admitted to the hospital had labs drawn they discharged him home with right acid reflux he supposed to start dialysis next week per Dr. López. He just worried about his color patient does his admit to smoking weed today denies any other complaints Onset (ago): month(s) Associated symptoms: Deny chest pain, dyspnea, headache(s), nausea, rash or vomiting Review of Systems Narrative: Stage III chronic renal failure Const: Denies: fever(s), chills or body aches Eyes: Denies: change in vision or blurry vision ENMT: Denies: throat pain or nasal congestion Card: Denies: chest pain or dyspnea on exertion Resp: Denies: dyspnea, productive cough or non-productive cough GI: Denies: abdominal pain, nausea or vomiting : Denies: difficulty urinating Musc: Denies: extremity pain Skin/Breast: Denies: rash Neuro: Denies: headache(s) Psych: Denies: anxiety or depression Nba/Lymph: Denies: easy bruising PFSH ED PFSH: Medical History (Updated 05/28/20 @ 15:49 by Dianna De La Cruz LPN) ADD (attention deficit disorder) Carpal tunnel syndrome Chest pain Chronic pain syndrome GERD (gastroesophageal reflux disease) Hematuria History of hepatitis Hyperlipidemia Hypertension Irritable bowel syndrome Peptic ulcer disease Tobacco use Type 2 diabetes mellitus Type 2 diabetes mellitus with hyperglycemia Unable to tolerate higher doses of metformin Surgical History H/O neck surgery H/O wrist surgery R History of back surgery History of carpal tunnel surgery L Family History Family/Other No problems noted. Other Adopted Social History Smoking and tobacco status: current every day smoker cigarettes Packs smoked per day: 0.5 [ Other cigarette details: Says has been cutting down ] and smokeless tobacco Quit status (tobacco): considering quitting Second hand smoke exposure: Yes Smoking risk assessment/counseling performed?: No Alcohol intake: current Alcohol intake frequency: holidays/special occasions only Alcohol type: hard liquor Desire information about alcohol rehabilitation?: No Lives independently: Yes Household members: spouse Marital status: Current occupational status: unemployed Current gender identity: Male Physical Exam Const: COMMON NORMALS: no acute distress, average body habitus and patient oriented x3 HENMT: COMMON NORMALS: normocephalic HEAD & SCALP: normal to inspection and normocephalic FACE & SINUS: normal facial exam Eye: COMMON NORMALS: conjunctivae normal GENERAL EYE: appearance normal, both eyes and all related structures CONJUNCTIVA: Yes conjunctivae normal Neck/C-Spine: COMMON NORMALS: no JVD Chest: COMMONS NORMALS: normal inspection of the chest Resp: COMMON NORMALS: normal respiratory effort and clear to auscultation bilaterally AUSCULTATION: clear to auscultation bilaterally Cardio: COMMON NORMALS: no JVD, regular rate and regular rhythm RATE: regular rate RHYTHM: regular rhythm GI: COMMON NORMALS: Normal to inspection, nondistended, normoactive bowel sounds present Extremity: COMMON NORMALS: normal to inspection and full ROM Neuro: COMMON NORMALS: patient oriented x3 Psych: COMMON NORMALS: denies hallucinations, denies homicidal ideation and denies suicidal ideation ATTITUDE: Yes Other attitude/behavior findings present (Psych) (Patient is is babbling on talking about the war stories) Course Vital Signs: Vital signs: Vital Signs Temperature 98.1 F 05/29/20 19:33 Pulse Rate 93 05/29/20 19:33 Respiratory Rate 18 05/29/20 19:33 Blood Pressure 117/66 05/29/20 19:33 Pulse Oximetry 93 05/29/20 19:33 Discharge Plan Discharge Prescriptions: No Action dicyclomine 10 mg capsule 10 mg PO QID PRN (Reason: abdominal discomfort) 30 Days Qty: 60 RF: 2 quetiapine 25 mg tablet 50 mg PO TID RF: 0 Lantus Solostar U-100 Insulin 100 unit/mL (3 mL) insulin pen 20 unit SUBCUT DAILY 30 Days Qty: 6 RF: 2 albuterol sulfate [ProAir HFA] 90 mcg/actuation HFA aerosol inhaler 1 - 2 puff INHALATION Q6H PRN (Reason: shortness of breath or wheezing) 30 Days Qty: 18 RF: 2 cyclobenzaprine 10 mg tablet See Rx Instructions .ROUTE .COMPLEX Qty: 90 RF: 2 Lantus Solostar U-100 Insulin 100 unit/mL (3 mL) Insulin Pen 10 unit SUBCUT BEDTIME RF: 0 lactulose 20 gram/30 mL Solution 30 g PO TID PRN (Reason: Constipation) 30 Days Qty: 90 RF: 0 gabapentin 400 mg capsule 400 mg PO TID 30 Days Qty: 90 RF: 1 omeprazole 20 mg Capsule,Delayed Release(Dr/Ec) 40 mg PO DAILY RF: 0 Invokana 300 mg Tablet 300 mg PO DAILY RF: 0 lovastatin 20 mg tablet 20 mg PO DAILY RF: 0 metformin 500 mg tablet extended release 24 hr 500 mg PO DAILY RF: 0 Coding Level of Care Code ED Sluice Tender for Chg Sonia
--- NOTE | 2020-05-29 19:58 | XRR_ITS ---
PROCEDURE INFORMATION: Exam: XR Chest, 1 View Exam date and time: 05/29/2020 8:18 PM Age: 44 years old Clinical indication: Cough TECHNIQUE: Imaging protocol: XR of the chest Views: 1 view. COMPARISON: CR XR chest 1V portable [id number] 05/17/2020 7:46 PM FINDINGS: Limitations: The study is made with less than full inspiration. Lungs: Unremarkable. No consolidation. Pleural space: There is be small left pleural effusion and there is a suggestion of some infiltrate or atelectasis at the left lung base. Follow-up PA and lateral chest radiographs with proper inspiration are suggested for better evaluation. Heart/Mediastinum: Allowing for depth of inspiration, heart is within normal limits of size. Bones/joints: Postsurgical changes are seen in the lower cervical spine. XR/XR chest 1V portable [id number] IMPRESSION: 1. Limited exam made with shallow inspiration. 2. Question of mild left basilar infiltrate and small left pleural effusion, follow-up PA and lateral views are suggested.
[2020-05-29 20:01] LABS: Basophils # 0.1 10^3/uL (0.0-0.1); Basophils % 1.1 %; Eosinophils # 0.4 10^3/uL (0.0-0.8); Eosinophils % 4.6 %; Hematocrit 38.6 % (42.0-52.0); Hemoglobin 11.7 g/dL (11.7-16.6); Lymphocytes # 1.9 10^3/uL (0.8-4.8); Mean Corpuscular HGB Conc 30.3 g/dL (30.0-36.0); Mean Corpuscular Volume 88.9 fL (80-94); Mean Platelet Volume 9.7 fL (7.4-10.4); Monocytes # 1.2 10^3/uL (0.2-0.9); Monocytes % 13.6 %; Neutrophils # 4.98 10^3/uL (1.8-7.7); Neutrophils % 58.5 %; Nucleated Red Blood Cells % 0 %; Platelet Count 260 10^3/cmm (130-400); Red Blood Count 4.34 10^6/uL (4.1-5.3); White Blood Count 8.5 10^3/uL (4.0-10.0)
[2020-05-29 20:17] LABS: Alanine Aminotransferase 89 U/L (0-41); Albumin Level 4.3 g/dL (3.5-5.2); Alkaline Phosphatase 82 IU/L (40-130); Aspartate Amino Transferase 48 U/L (0-40); Blood Urea Nitrogen 12 mg/dL (6-20); Calcium 8.9 mg/dL (8.5-10.5); Carbon Dioxide 26 mmol/L (22-29); Chloride 99 mmol/L (98-107); Globulin 3.1 g/dL (1.3-4.6); Glomerular Filtration Rate 47.4 mL/min (90-130); Glucose 244 mg/dL (65-115); Osmolality Calculated 282 mOsm/kg (285-295); Sodium 134 mmol/L (136-145); Total Bilirubin 0.3 mg/dL (0.15-1.2); Total Protein 7.4 g/dL (6.6-8.7)
[2020-05-29 20:48] VITALS: BP 128/93; PULSE 86; RESP 16; TEMP 36.8; O2SAT 92
== END 2020-05-29 20:51 | disposition home or self-care (01) ==
PROVIDERS: Emergency Provider Nurse Practitioner Family; PCP Family Medicine
DX: R79.9 Abnormal finding of blood chemistry, unspecified (principal); Z79.4 Long term (current) use of insulin; F17.210 Nicotine dependence, cigarettes, uncomplicated; E78.5 Hyperlipidemia, unspecified; I10 Essential (primary) hypertension; E11.9 Type 2 diabetes mellitus without complications
CPT/HCPCS: 12345; 71045; 80053; 85025; 99282; 99283

== ENCOUNTER → 2020-06-09 10:24 | Outpatient (BNVA) | payer MEDICARE, MEDICAID, SELFPAY | PROVIDERS: PCP Family Medicine; Visit Provider Family Medicine | DX: E11.9 Type 2 diabetes mellitus without complications (principal); R74.8 Abnormal levels of other serum enzymes | CPT/HCPCS: 80053; 83036 ==

== ENCOUNTER → 2020-06-16 15:00 | Outpatient (BNVA) | payer MEDICARE, MEDICAID, SELFPAY | PROVIDERS: PCP Family Medicine; Visit Provider Internal Medicine | DX: R10.11 Right upper quadrant pain (principal); B18.2 Chronic viral hepatitis C | CPT/HCPCS: 87522 ==

== ENCOUNTER 2020-06-22 08:38 | Day surgery (SDC) | payer MEDICARE, MEDICAID, SELFPAY ==
[2020-06-22 08:51] VITALS: BP 121/85; PULSE 102; RESP 18; TEMP 36.1; O2SAT 98
--- NOTE | 2020-06-22 09:07 | ANES.PREANE2 ---
Pre-Anesthetic Assessment Pre-Anesthetic Assessment: Height/Weight: Height 1.73 m Weight 83.461 kg Temp Pulse Resp BP Pulse Ox 97 F L 102 H 18 121/85 98 06/22/20 08:51 06/22/20 08:51 06/22/20 08:51 06/22/20 08:51 06/22/20 08:51 Preop Diagnosis: egd Proposed Procedure: Operation Date: 06/22/20 09:30 Proposed Procedures p EGD 70426 R10.11(Not Applicable) - Hector Griffith MD Familial anesthetic complications: hard to wakeup Was Beta Gucci taken within 24 hours: Yes Last intake: Intake Last Liquid Date 06/21/20 Last Liquid Time 21:00 Last Solid Date 06/21/20 Last Solid Time 21:00 Last Intake: 00:00 Social: Social History: Alcohol (quit a few months ago drinks fire ball ) and Tobacco (chew pouches smokes occasionally ) Exam: Pre-Anes Outpt Exam: alert and oriented x 3 Airway: Submandibular: WNL Cervical ROM: WNL MP: 1 Additional comments: endentulous Pulmonary: Pulmonary: Asthma (uses as needed ) and Sleep apnea CV/HEM: CV/HEM: Angina (Stable), Arrythmia and HTN : : Chronic renal failure Comments: stage 3 Hepatic: Hepatic: Hepatitis (hep c ) Comments: stage 3 liver failure GI: GI: GERD (controlled with meds ) Metabolic: Metabolic: DM (niddm ) Musc/skel: Musc/skel: OA/DJD Neuropsych: Neuropsych: Anxiety, Bipolar, Depression and SMITH (migraines ) Anesthetic Plan: ASA status: 3 Anesthesia: Anesthesia Evaluation and MAC PFSH Anesthesia PFSH: Medical History (Updated 06/16/20 @ 13:56 by Hector Griffith MD) ADD (attention deficit disorder) Carpal tunnel syndrome Chest pain Chronic pain syndrome GERD (gastroesophageal reflux disease) Hematuria History of hepatitis Hyperlipidemia Hypertension Irritable bowel syndrome Peptic ulcer disease Tobacco use Type 2 diabetes mellitus Type 2 diabetes mellitus with hyperglycemia Unable to tolerate higher doses of metformin Surgical History H/O neck surgery H/O wrist surgery R History of back surgery History of carpal tunnel surgery L Family History Family/Other No problems noted. Other Adopted Social History (Updated 06/16/20 @ 13:30 by GENTRY Siddiqui) Smoking and tobacco status: current every day smoker cigarettes Packs smoked per day: 0.5 [ Other cigarette details: Says has been cutting down ] and smokeless tobacco Quit status (tobacco): considering quitting Second hand smoke exposure: Yes Smoking risk assessment/counseling performed?: No Alcohol intake: current Alcohol intake frequency: holidays/special occasions only Alcohol type: hard liquor Desire information about alcohol rehabilitation?: No Lives independently: Yes Household members: spouse Marital status: Current occupational status: unemployed History of recent travel: No Current gender identity: Male Data Anesthesia Cardiac Studies: No Data to Display
[2020-06-22] MEDS: sodium chloride 0.9% 1,000 ML 30 ML IV (09:09)
[2020-06-22 09:13] LABS: Glucose Point of Care 125 mg/dL (70-110)
--- NOTE | 2020-06-22 09:14 | W.PM.OPSUD ---
Surgery/Procedure H&P Update DATE OF PROCEDURE: June 22, 2020 DATE H&P PERFORMED: 06/16/20 PREOP DIAGNOSIS: egd PLANNED PROCEDURE: Operation Date: 06/22/20 09:30 Proposed Procedures p EGD 97305 R10.11(Not Applicable) - Hector Griffith MD
[2020-06-22 09:48] VITALS: BP 115/79; PULSE 86; RESP 16; TEMP 36.6; O2SAT 97
[2020-06-22 09:57] VITALS: BP 126/84; PULSE 91; RESP 18; O2SAT 97
--- NOTE | 2020-06-22 09:57 | ANE.PACU2 ---
Inpatient post-anesthesia follow up: Airway intact: Yes Vital signs: Temperature 97.8 F Pulse Rate 86 Respiratory Rate 16 Blood Pressure 115/79 Pulse Oximetry 97 Oxygen Delivery Me thod Nasal Cannula Oxygen Flow Rate 3 Fraction of Inspir ed Oxygen Hydration adequate: Yes Nausea and vomiting: No Pain level: 3 Mental status: Baseline
== END 2020-06-22 10:18 | disposition home or self-care (01) ==
PROVIDERS: PCP Family Medicine; Visit Provider Internal Medicine
PROC: 0DJ08ZZ Inspection of Upper Intestinal Tract, Via Natural or Artificial Opening Endoscopic (ICD-10-PCS; CPT 43235; principal; 2020-06-22 09:30)
DX: R10.11 Right upper quadrant pain (principal); J45.909 Unspecified asthma, uncomplicated; I12.9 Hypertensive chronic kidney disease with stage 1 through stage 4 chronic kidney disease, or unspecified chronic kidney disease; N18.3 Chronic kidney disease, stage 3 (moderate); K21.9 Gastro-esophageal reflux disease without esophagitis; E11.22 Type 2 diabetes mellitus with diabetic chronic kidney disease; F31.9 Bipolar disorder, unspecified; F17.290 Nicotine dependence, other tobacco product, uncomplicated; G47.30 Sleep apnea, unspecified; F41.9 Anxiety disorder, unspecified; E78.5 Hyperlipidemia, unspecified; F90.9 Attention-deficit hyperactivity disorder, unspecified type; F17.210 Nicotine dependence, cigarettes, uncomplicated
CPT/HCPCS: 12345; 36416; 43235; 82962; J2704; J3010; J7030

== ENCOUNTER → 2020-07-16 15:47 | Outpatient (BNVA) | payer MEDICARE, MEDICAID, SELFPAY | PROVIDERS: PCP Family Medicine; Visit Provider Family Medicine | DX: R82.90 Unspecified abnormal findings in urine (principal) | CPT/HCPCS: 81000 ==

== ENCOUNTER → 2020-09-10 09:35 | Outpatient (BNVA) | payer MEDICARE, MEDICAID, SELFPAY | PROVIDERS: PCP Family Medicine; Visit Provider Internal Medicine | DX: N18.31 Chronic kidney disease, stage 3a (principal); B18.2 Chronic viral hepatitis C | CPT/HCPCS: 80053; 81000; 82550; 82575; 87902 ==

== ENCOUNTER 2020-09-21 13:37 | Outpatient (CLI) | payer MEDICARE, MEDICAID, SELFPAY ==
--- NOTE | 2020-09-21 13:40 | US_ITS ---
WS: [id number] ULTRASOUND RENAL TECHNIQUE: Ultrasound examination of both kidneys. CLINICAL INFORMATION: CHRONIC KIDNEY DZ,STAGE 3 COMPARISON: None. FINDINGS: RIGHT: Right kidney is normal in size and appearance. Echogenicity: Normal. Cortical thickness: 1.7 cm; Normal. Hydronephrosis: None. Perinephric fluid: None. Right kidney measures: 9.1 x 4.9 x 5.1 cm LEFT: Left kidney is normal in size and appearance. Echogenicity: Normal. Cortical thickness: 1.8 cm; Normal. Hydronephrosis: None. Perinephric fluid: None. Left kidney measures: 9.1 x 5.1 x 5.1 cm Normal visualized aorta. US/US renal BI* [id number] IMPRESSION: Normal renal ultrasound
== END 2020-09-21 13:38 | disposition home or self-care (01) ==
LOC: US 13:37
PROVIDERS: PCP Family Medicine; Visit Provider Internal Medicine
DX: N18.30 Chronic kidney disease, stage 3 unspecified (principal)
CPT/HCPCS: 76770

== ENCOUNTER → 2020-09-22 14:43 | Outpatient (BNVA) | payer MEDICARE, MEDICAID, SELFPAY | PROVIDERS: PCP Family Medicine; Visit Provider Family Medicine | DX: E11.22 Type 2 diabetes mellitus with diabetic chronic kidney disease (principal); K21.9 Gastro-esophageal reflux disease without esophagitis; N18.30 Chronic kidney disease, stage 3 unspecified | CPT/HCPCS: 83036 ==

== ENCOUNTER 2020-10-10 20:56 | Emergency (ER) | payer MEDICARE, MEDICAID, SELFPAY ==
[2020-10-10 20:57] VITALS: BP 145/92; PULSE 94; RESP 18; TEMP 37; O2SAT 98; BMI 29.3
[2020-10-10 21:15] VITALS: BP 143/87; PULSE 82; RESP 16; O2SAT 97
--- NOTE | 2020-10-10 21:26 | ED_ITS ---
HPI - Headache General: Chief Complaint: Headache Stated Complaint: LAZY EYE/MIGRAINE FOR 1 WK Time Seen by Provider: 10/10/20 21:20 History of Present Illness: HPI Narrative: Patient planes about migraine headache right eye hurting at times. Thinks may be Covid swab from last week at [facility] because it happened. Has history of cluster headaches and migraines. Taking medication. Patient does attend [facility] up in [place]. MD elicited complaint: migraine Onset (ago): day(s) Onset description: gradually Location: frontal Severity: moderate Quality & Timing: aching and throbbing Exacerbating factors: none Relieving factors: nothing Context: occurred at rest Associated symptoms: Reports no associated symptoms; Deny chest pain, fever(s), nausea, rash or vomiting Review of Systems Const: Denies: fever(s), chills or body aches Eyes: Denies: change in vision or blurry vision ENMT: Denies: throat pain or nasal congestion Card: Denies: chest pain or dyspnea on exertion Resp: Denies: dyspnea, productive cough or non-productive cough GI: Denies: abdominal pain, nausea or vomiting : Denies: difficulty urinating Musc: Denies: extremity pain Skin/Breast: Denies: rash Neuro: Reports: headache(s) and other (Patient is right I felt full and felt like it is drooping at times no visio) Psych: Denies: anxiety or depression Nba/Lymph: Denies: easy bruising PFSH ED PFSH: Medical History (Updated 09/26/20 @ 22:31 by Usha López MD) ADD (attention deficit disorder) Angina decubitus Carpal tunnel syndrome Chest pain Chronic pain syndrome GERD (gastroesophageal reflux disease) Hematuria History of hepatitis Hyperlipidemia Hypertension Irritable bowel syndrome Peptic ulcer disease Seasonal allergies Tobacco use Type 2 diabetes mellitus Surgical History H/O neck surgery H/O wrist surgery R History of back surgery History of carpal tunnel surgery L Family History Family/Other No problems noted. Other Adopted Social History Smoking and tobacco status: current every day smoker cigarettes Packs smoked per day: 0.5 [ Other cigarette details: Says has been cutting down ] and smokeless tobacco Quit status (tobacco): considering quitting Second hand smoke exposure: Yes Smoking risk assessment/counseling performed?: No Alcohol intake: current Alcohol intake frequency: holidays/special occasions only Alcohol type: hard liquor Desire information about alcohol rehabilitation?: No Lives independently: Yes Household members: spouse Marital status: Current occupational status: unemployed History of recent travel: No Current gender identity: Male Physical Exam Const: COMMON NORMALS: no acute distress, average body habitus and patient oriented x3 HENMT: COMMON NORMALS: normocephalic HEAD & SCALP: normal to inspection and normocephalic FACE & SINUS: normal facial exam Eye: COMMON NORMALS: Equal, round and reactive pupils present, EOMs intact bilaterally and conjunctivae normal GENERAL EYE: appearance normal, both eyes and all related structures and no decreased light reflex VISUAL PAUL: No peripheral vision loss CONJUNCTIVA: Yes conjunctivae normal PUPIL: Yes Equal, round and reactive pupils present DIRECT OPHTHALMOSCOPY: No decreased light reflex Neck/C-Spine: COMMON NORMALS: no JVD Chest: COMMONS NORMALS: normal inspection of the chest Resp: COMMON NORMALS: normal respiratory effort and clear to auscultation bilaterally AUSCULTATION: clear to auscultation bilaterally Cardio: COMMON NORMALS: no JVD, regular rate and regular rhythm RATE: regular rate RHYTHM: regular rhythm GI: COMMON NORMALS: Normal to inspection, nondistended, normoactive bowel sounds present Extremity: COMMON NORMALS: normal to inspection and full ROM Neuro: COMMON NORMALS: patient oriented x3 Course Vital Signs: Vital signs: Vital Signs Temperature 98.6 F 10/10/20 20:57 Pulse Rate 82 10/10/20 21:15 Respiratory Rate 16 10/10/20 21:15 Blood Pressure 143/87 10/10/20 21:15 Pulse Oximetry 97 10/10/20 21:15 Discharge Plan Discharge Prescriptions: No Action dicyclomine 10 mg capsule 10 mg PO QID PRN (Reason: abdominal discomfort) 30 Days Qty: 60 RF: 2 quetiapine 25 mg tablet 50 mg PO QPM RF: 0 tizanidine 4 mg tablet 4 mg PO Q8H PRN (Reason: muscle spasticity) 30 Days Qty: 90 RF: 5 omeprazole 20 mg capsule,delayed release(DR/EC) 20 mg PO BID 30 Days Qty: 60 RF: 5 cetirizine 10 mg tablet 10 mg PO DAILY 30 Days Qty: 30 RF: 5 albuterol sulfate [ProAir HFA] 90 mcg/actuation HFA aerosol inhaler 1 - 2 puff INHALATION Q6H PRN (Reason: shortness of breath or wheezing) 30 Days Qty: 18 RF: 2 sofosbuvir-velpatasvir [Epclusa] 400-100 mg tablet 1 tab PO DAILY 84 Days Qty: 28 RF: 2 lactulose 20 gram/30 mL solution 10 gm PO TID 30 Days Qty: 1500 RF: 2 metformin 500 mg tablet extended release 24 hr See Rx Instructions .ROUTE .COMPLEX Qty: 30 RF: 0 oxycodone 5 mg tablet 5 mg PO TID PRNRF: 0 metoprolol succinate 50 mg tablet extended release 24 hr See Rx Instructions .ROUTE .COMPLEX Qty: 90 RF: 0 ondansetron HCl 4 mg tablet 4 mg PO Q6H PRN (Reason: nausea) Qty: 30 RF: 0 canagliflozin [Invokana] 300 mg tablet See Rx Instructions .ROUTE .COMPLEX Qty: 30 RF: 5 Lantus Solostar U-100 Insulin 100 unit/mL (3 mL) insulin pen 20 unit SUBCUT DAILY RF: 0 Coding Level of Care Code ED Metal Riveting Machine Operator for Marcos Scott
[2020-10-10] MEDS: SUMAtriptan 6 mg/0.5 mL SDV SUBCUT (21:30)
[2020-10-10 22:11] VITALS: BP 145/99; PULSE 77; RESP 16; O2SAT 98
== END 2020-10-10 22:11 | disposition home or self-care (01) ==
PROVIDERS: Emergency Provider Nurse Practitioner Family; PCP Family Medicine
DX: R51.9 Headache, unspecified (principal); Z79.4 Long term (current) use of insulin; E78.5 Hyperlipidemia, unspecified; I10 Essential (primary) hypertension; E11.9 Type 2 diabetes mellitus without complications; F17.210 Nicotine dependence, cigarettes, uncomplicated
CPT/HCPCS: 12345; 96372; 99281; 99283; J3030

== ENCOUNTER 2020-11-03 08:56 | Outpatient (CLI) | payer MEDICARE, MEDICAID, SELFPAY ==
--- NOTE | 2020-11-03 11:00 | MR_ITS ---
WS: [id number] MRI CERVICAL SPINE NONCONTRAST TECHNIQUE: Sagittal T1, T2 and STIR imaging. Axial T2, gradient, and fiesta imaging. CLINICAL INFORMATION: M54.12 - Radiculopathy, cervical region COMPARISON: MRI 7 FINDINGS: Straightening of the normal cervical lordosis. Anterior cervical fusion C3-C6 with hardware at C3-C4 with interbody fusion. Prior bony fusion C4-C6. Disc osteophyte bulging worse at C6-7. C2-C3: Mild right and no significant left foraminal narrowing. Moderate right facet arthropathy. Spin al canal is patent. C3-C4: Anterior cervical fusion. Moderate left and mild right bony foraminal narrowing. Mild facet ar thropathy. Mild central canal stenosis. C4-C5: Anterior cervical fusion. Spinal canal and foramen are patent. C5-C6: Prior interbody bony fusion. Mild left and no significant right foraminal narrowing. Spinal ca nal is patent. C6-C7: Disc osteophyte complex with endplate ridging. Moderate central canal stenosis. Severe left an d moderate right bony foraminal narrowing. C7-T1: Mild left and no significant right foraminal narrowing. Spinal canal is patent. Visualized brain stem structures: Normal. Prevertebral soft tissues: Normal. MR/MR cervical spin wo con* [id number] IMPRESSION: 1. Straightening of the normal cervical lordosis. Anterior interbody fusion C3 -C4 and prior bony fusion C5-C6. 2. Disc osteophyte complex C6-C7 with moderate central canal stenosis. Severe left and moderate right bony foraminal narrowing. This is slightly progressed s geremias 2018. 3. Mild central canal stenosis C3-C4 due to osteophytic ridging. 4. Mild to moderate bony foraminal narrowing right C2-3 and left C3-C4
== END 2020-11-03 08:57 | disposition home or self-care (01) ==
LOC: RADSHAW 09:03
PROVIDERS: PCP Registered Nurse; Visit Provider Registered Nurse
DX: M54.12 Radiculopathy, cervical region (principal); M48.02 Spinal stenosis, cervical region; M25.78 Osteophyte, vertebrae
CPT/HCPCS: 72141

== ENCOUNTER 2020-11-11 13:09 | Emergency (ER) | payer MEDICARE, MEDICAID, SELFPAY ==
[2020-11-11 13:15] VITALS: BP 128/87; PULSE 86; RESP 18; O2SAT 96
[2020-11-11 13:16] VITALS: BP 129/83; PULSE 86; RESP 14; TEMP 36.6; O2SAT 98; BMI 26.9
--- NOTE | 2020-11-11 14:15 | W.ED.NECK ---
HPI - Neck Pain/Injury General: Chief Complaint: Neck Pain/Injury Stated Complaint: INC NECK PAIN, POSS SURGERY SOON Time Seen by Provider: 11/11/20 14:12 History of Present Illness: HPI Narrative: Patient is a 45-year-old male who has acute on chronic cervical neck pain. Patient is currently being referred to Dr. Orosco by his PCP and says he set up to potentially see Dr. Orosco this week. Cervical spine MRI was performed on November 03, 2020. patient denies any acute injury or trauma. Associated symptoms: Denies headache(s) or nausea Review of Systems Const: Denies: fever(s), chills or fatigue Eyes: Denies: change in vision or eye discomfort ENMT: Denies: throat pain, odynophagia, nasal discharge or nasal congestion Card: Denies: chest pain, palpitations, edema, swelling of feet/ankles, dyspnea on exertion or orthopnea Resp: Denies: dyspnea, productive cough or non-productive cough GI: Denies: abdominal pain, nausea, vomiting, diarrhea, constipation or hematochezia : Denies: flank pain, difficulty urinating, dysuria or hematuria Musc: Reports: neck pain; Denies: back pain or extremity swelling Skin/Breast: Denies: rash or new lesions Neuro: Denies: headache(s), numbness in extremities or weakness in extremities PFSH ED PFSH: Medical History ADD (attention deficit disorder) Angina decubitus Carpal tunnel syndrome Chest pain Chronic pain syndrome GERD (gastroesophageal reflux disease) Hematuria History of hepatitis Hyperlipidemia Hypertension Irritable bowel syndrome Peptic ulcer disease Seasonal allergies Tobacco use Type 2 diabetes mellitus Surgical History H/O neck surgery H/O wrist surgery R History of back surgery History of carpal tunnel surgery L Family History Family/Other No problems noted. Other Adopted Social History Smoking and tobacco status: current every day smoker cigarettes Packs smoked per day: 0.5 [ Other cigarette details: Says has been cutting down ] and smokeless tobacco Quit status (tobacco): considering quitting Second hand smoke exposure: Yes Smoking risk assessment/counseling performed?: No Alcohol intake: current Alcohol intake frequency: holidays/special occasions only Alcohol type: hard liquor Desire information about alcohol rehabilitation?: No Lives independently: Yes Household members: spouse Marital status: Current occupational status: unemployed History of recent travel: No Current gender identity: Male Physical Exam Const: COMMON NORMALS: no acute distress, patient oriented x3 and alert GENERAL APPEARANCE: cooperative and comfortable HENMT: COMMON NORMALS: normocephalic HEAD & SCALP: normocephalic MOUTH: Normal oral and palatal mucosa present THROAT: posterior oropharynx normal and uvula midline Eye: COMMON NORMALS: Equal, round and reactive pupils present PUPIL: Yes Equal, round and reactive pupils present Neck/C-Spine: COMMON NORMALS: supple GENERAL: Yes normal visual inspection CERVICAL SPINE: No Cervical spine tenderness, Yes Paracervical muscle tenderness and Yes Trapezius muscle tenderness Resp: COMMON NORMALS: normal respiratory effort, No retractions, No use of accessory muscles and clear to auscultation bilaterally AUSCULTATION: clear to auscultation bilaterally Cardio: COMMON NORMALS: regular rate, regular rhythm, S1 normal heart sound present, S2 normal heart sound present, No gallops present (Cardio), No clicks present (Cardio), No murmurs present (Cardio) and Peripheral pulses 2+ throughout RATE: regular rate RHYTHM: regular rhythm HEART SOUNDS: S1 normal heart sound present and S2 normal heart sound present PERIPHERAL PULSES: Peripheral pulses 2+ throughout GI: COMMON NORMALS: Normal to inspection, nondistended, normoactive bowel sounds present, Soft to palpation, non-tender and no masses PALPATION: Yes Soft to palpation : COMMON NORMALS: Yes no CVA tenderness BLADDER/KIDNEY EXAM: Yes no CVA tenderness Back/Pelvis: COMMON NORMALS: no CVA tenderness Extremity: COMMON NORMALS: normal to inspection Neuro: COMMON NORMALS: patient oriented x3 and moves all extremities SENSORIUM/ORIENTATION: Yes alert Skin: GENERAL SKIN EXAM: dry skin Course Vital Signs: Vital signs: Vital Signs Temperature 97.8 F 11/11/20 15:12 Pulse Rate 88 11/11/20 15:12 Respiratory Rate 18 11/11/20 15:12 Blood Pressure 125/86 11/11/20 15:12 Pulse Oximetry 96 11/11/20 15:12 MDM - Neck Pain/Injury MDM Narrative: Medical decision making narrative: Patient is a 45-year-old male comes to the ED with acute on chronic neck pain. Patient had an MRI of the cervical spine done on November 03 and has a referral currently with Dr. Orosco and will be seeing him in the next week. No acute trauma or injury. While here in the ED patient was given a dose of morphine and sent home with a prescription for Medrol Dosepak and meloxicam. Return to ED precautions given. Patient understood and agreed with plan. Discharge Plan Discharge Patient Disposition: Home Clinical Impression: Cervical radiculopathy Condition: Stable Prescriptions: New meloxicam 15 mg tablet 15 mg PO DAILY Qty: 30 RF: 0 Medrol (Jose Antonio) 4 mg tablets,dose pack See Rx Instructions .ROUTE .COMPLEX Qty: 21 RF: 0 No Action quetiapine 25 mg tablet 50 mg PO QPM RF: 0 tizanidine 4 mg tablet 4 mg PO Q8H PRN (Reason: muscle spasticity) 30 Days Qty: 90 RF: 5 omeprazole 20 mg capsule,delayed release(DR/EC) 20 mg PO BID 30 Days Qty: 60 RF: 5 cetirizine 10 mg tablet 10 mg PO DAILY 30 Days Qty: 30 RF: 5 clindamycin HCl 300 mg capsule 300 mg PO TID 10 Days Qty: 30 RF: 0 mupirocin 2 % ointment 1 applic topical BID Qty: 22 RF: 1 albuterol sulfate [ProAir HFA] 90 mcg/actuation HFA aerosol inhaler 1 - 2 puff INHALATION Q6H PRN (Reason: shortness of breath or wheezing) 30 Days Qty: 18 RF: 2 sofosbuvir-velpatasvir [Epclusa] 400-100 mg tablet 1 tab PO DAILY 84 Days Qty: 28 RF: 2 dicyclomine 10 mg capsule 10 mg PO QID PRN (Reason: abdominal discomfort) 30 Days Qty: 60 RF: 5 metformin 500 mg tablet extended release 24 hr See Rx Instructions .ROUTE .COMPLEX Qty: 30 RF: 1 oxycodone 5 mg tablet 5 mg PO TID PRNRF: 0 metoprolol succinate 50 mg tablet extended release 24 hr See Rx Instructions .ROUTE .COMPLEX Qty: 90 RF: 0 ondansetron HCl 4 mg tablet 4 mg PO Q6H PRN (Reason: nausea) Qty: 30 RF: 0 canagliflozin [Invokana] 300 mg tablet See Rx Instructions .ROUTE .COMPLEX Qty: 30 RF: 5 topiramate [Topamax] 50 mg tablet 50 mg PO BID Qty: 60 RF: 0 Lantus Solostar U-100 Insulin 100 unit/mL (3 mL) insulin pen 20 unit SUBCUT DAILY RF: 0 Discharge Orders: Discharge ED (Routine); Ordered 11/11/20 Ordered By: Juanjo Leon Referrals: Ofe Paula FNP [Primary Care Provider] - Discharge Diet: Regular Discharge Activity: Increase activity as tolerated Patient Instructions: Cervical Radiculopathy (ED) Activity Restrictions/Additional Instructions: Follow-up with medical provider as directed. Take medications as prescribed. Return to the ER or your medical provider if condition worsens. Please read and understand discharge instructions. If any questions, please ask. Coding Level of Care Code ED [employer] Specialist for [facility] Fwd Exam Comprehensive
[2020-11-11 14:53] VITALS: RESP 18
[2020-11-11] MEDS: morphine 4 mg/mL SDV 1 mL IM (14:53)
[2020-11-11 14:57] VITALS: BP 122/72; PULSE 76; RESP 18; O2SAT 94
[2020-11-11 15:12] VITALS: BP 125/86; PULSE 88; RESP 18; TEMP 36.6; O2SAT 96
== END 2020-11-11 15:26 | disposition home or self-care (01) ==
PROVIDERS: Emergency Provider Physician Assistant; PCP Registered Nurse
DX: M54.12 Radiculopathy, cervical region (principal); Z79.4 Long term (current) use of insulin; E78.5 Hyperlipidemia, unspecified; I10 Essential (primary) hypertension; E11.9 Type 2 diabetes mellitus without complications; F17.210 Nicotine dependence, cigarettes, uncomplicated
CPT/HCPCS: 12345; 96372; 99281; 99283; J2270; J2930

== ENCOUNTER → 2020-11-19 09:35 | Outpatient (BNVA) | payer MEDICARE, MEDICAID, SELFPAY | PROVIDERS: PCP Registered Nurse; Referring Provider Registered Nurse; Visit Provider Orthopaedic Surgery | DX: M54.2 Cervicalgia (principal); M54.5 Low back pain | CPT/HCPCS: 72050; 72114 ==

== ENCOUNTER → 2020-11-26 10:35 | Outpatient (BNVA) | payer MEDICARE, MEDICAID, SELFPAY | PROVIDERS: PCP Registered Nurse; Referring Provider Orthopaedic Surgery; Visit Provider Anesthesiology Pain Medicine | DX: M54.12 Radiculopathy, cervical region (principal); M47.812 Spondylosis without myelopathy or radiculopathy, cervical region; M47.816 Spondylosis without myelopathy or radiculopathy, lumbar region; M43.10 Spondylolisthesis, site unspecified; F17.210 Nicotine dependence, cigarettes, uncomplicated | CPT/HCPCS: 99205 ==

== ENCOUNTER 2020-12-03 16:37 | Emergency (ER) | payer MEDICARE, MEDICAID, SELFPAY ==
[2020-12-03 16:55] VITALS: BP 122/78; PULSE 67; RESP 22; TEMP 37; O2SAT 98; BMI 29.6
--- NOTE | 2020-12-03 17:26 | XR_ITS ---
WS: [id number] Left wrist, 3 views, 12/03/2020 Clinical Data: pain Comparison: Left wrist, 05/14/2020. Findings: No fractures or dislocations are seen. The carpal bones are intact. There is no soft tissue swelling. The distal radius and ulna are not remarkable. XR/XR wrist LT min 3V* [id number] Impression: Negative left wrist.
--- NOTE | 2020-12-03 17:26 | CTR_ITS ---
PROCEDURE INFORMATION: Exam: CT Cervical Spine Without Contrast Exam date and time: 12/03/2020 5:33 PM Age: 45 years old Clinical indication: Injury or trauma; Fall; Blunt trauma; Prior surgery; Additional info: Fall, neck pain TECHNIQUE: Imaging protocol: Computed tomography images of the cervical spine without contrast. Radiation optimization: All CT scans at this facility use at least one of these dose optimization techniques: automated exposure control; mA and/or kV adjustment per patient size (includes targeted exams where dose is matched to clinical indication); or iterative reconstruction. COMPARISON: CT Cervical Spine wo* [id number] 12/05/2018 4:16 PM RADIATION DOSE METRICS: Total DLP (mGy-cm): 728.64 FINDINGS: Vertebrae: No fractures. No traumatic malalignment. Surgical fusion C3, C4, C5, C6. No postsurgical complication. Severe disc disease C6-C7. Soft tissues: Unremarkable. Lungs: Lung apices are normal. CT/CT cervical spin wo con* [id number] IMPRESSION: 1. Negative for acute cervical spine injury. 2. No change in appearance of cervical spine relative to comparison on 12/05/2018. Radiation Dose CTDIVOL = (mGy): DLP = 728.64 (mGy-cm)
--- NOTE | 2020-12-03 17:28 | W.ED.BACK ---
Documented by User: Loyd Temple DO 12/07/20 13:03 HPI - Back Pain/Injury General: Chief Complaint: Back Pain/Injury Stated Complaint: FALL/ NECK AND BACK PAIN Time Seen by Provider: 12/03/20 16:48 History of Present Illness: HPI Narrative: 45-year-old male presents emergency room after slip and fall on ice at home he fell broke his fall with his left hand but still hit the ground hard he thinks he may have hit his head although he does not recall he is unsure if he lost consciousness he is concerned because he did previous neck surgery. Pertinent past history: prior back pain Onset (ago): minute(s) Timing: constant Severity: moderate Similar Symptoms Previously: Yes Quality: sharp, tingling and spasming Exacerbating factors: movement Relieving factors: immobilization Context: fall Associated symptoms: Reports tingling/numbness/burning; Deny abdominal pain, arthralgias, chills, change in bowel habits, difficulty walking, dysuria, fatigue, fecal incontinence, fever(s), hematuria, myalgias, nausea, numbness, syncope, urinary frequency, urinary urgency, vomiting or weakness Review of Systems Const: Denies: fever(s), chills or fatigue ENMT: Denies: throat pain, ear or mastoid pain, nasal discharge or nasal congestion Card: Denies: syncope Resp: Denies: dyspnea, productive cough or non-productive cough GI: Denies: abdominal pain, nausea, vomiting, fecal incontinence or change in bowel habits : Denies: dysuria, urinary urgency or hematuria Skin/Breast: Denies: rash or pruritus Neuro: Denies: difficulty walking PFSH ED PFSH: Medical History ADD (attention deficit disorder) Angina decubitus Carpal tunnel syndrome Chest pain Chronic pain syndrome GERD (gastroesophageal reflux disease) Hematuria History of hepatitis Hyperlipidemia Hypertension Irritable bowel syndrome Peptic ulcer disease Seasonal allergies Tobacco use Type 2 diabetes mellitus Surgical History H/O neck surgery H/O wrist surgery R History of back surgery History of carpal tunnel surgery L Family History Family/Other No problems noted. Other Adopted Social History Smoking and tobacco status: current every day smoker cigarettes Packs smoked per day: 0.5 [ Other cigarette details: Says has been cutting down ] and smokeless tobacco Quit status (tobacco): considering quitting Second hand smoke exposure: Yes Smoking risk assessment/counseling performed?: No Alcohol intake: current Alcohol intake frequency: holidays/special occasions only Alcohol type: hard liquor Desire information about alcohol rehabilitation?: No Lives independently: Yes Household members: spouse Marital status: Current occupational status: unemployed History of recent travel: No Current gender identity: Male Physical Exam Const: COMMON NORMALS: no acute distress GENERAL APPEARANCE: cooperative and comfortable ORIENTATION/CONSCIOUSNESS: Yes awake, Yes oriented to person, Yes oriented to place and Yes oriented to time HENMT: COMMON NORMALS: normocephalic, atraumatic and hearing grossly normal bilaterally HEAD & SCALP: normocephalic and atraumatic Neck/C-Spine: COMMON NORMALS: no JVD Resp: COMMON NORMALS: normal respiratory effort, No retractions, No use of accessory muscles and clear to auscultation bilaterally AUSCULTATION: clear to auscultation bilaterally Cardio: COMMON NORMALS: no JVD, regular rate, regular rhythm and No murmurs present (Cardio) RATE: regular rate RHYTHM: regular rhythm GI: COMMON NORMALS: Soft to palpation and No hepatosplenomegaly present AUSCULTATION: Yes normoactive bowel sounds PALPATION: Yes Soft to palpation, No Tenderness to palpation present (GI), No Guarding due to palpation present (GI) and Yes No hepatosplenomegaly present Extremity: COMMON NORMALS: normal to inspection, capillary refill normal, no clubbing, cyanosis or edema, no calf tenderness and no pedal edema Neuro: SENSORIUM/ORIENTATION: Yes oriented to person, Yes oriented to place and Yes oriented to time Skin: COMMON NORMALS: no rashes or lesions noted GENERAL SKIN EXAM: no rashes or lesions noted Course Vital Signs: Vital signs: Vital Signs Temperature 98.6 F 12/03/20 16:55 Pulse Rate 84 12/03/20 19:56 Respiratory Rate 16 12/03/20 19:56 Blood Pressure 118/74 12/03/20 19:56 Pulse Oximetry 100 12/03/20 19:56 MDM - Back Pain/Injury MDM Narrative: Medical decision making narrative: Note to Dr. Bello at change of shift see his notes for final diagnosis and disposition Discharge Plan Discharge Patient Disposition: Home Clinical Impression: Fall Qualifiers: Encounter type: initial encounter Qualified Code(s): W19.XXXA - Unspecified fall, initial encounter Neck strain Qualifiers: Encounter type: initial encounter Qualified Code(s): S16.1XXA - Strain of muscle, fascia and tendon at neck level, initial encounter Condition: Stable Prescriptions: New Robaxin-750 750 mg tablet 750 mg PO Q6H Qty: 30 RF: 0 Naprosyn 500 mg tablet 500 mg PO BID PRN (Reason: pain) Qty: 20 RF: 0 No Action quetiapine 25 mg tablet 50 mg PO QPM RF: 0 tizanidine 4 mg tablet 4 mg PO Q8H PRN (Reason: muscle spasticity) 30 Days Qty: 90 RF: 5 omeprazole 20 mg capsule,delayed release(DR/EC) 20 mg PO BID 30 Days Qty: 60 RF: 5 albuterol sulfate [ProAir HFA] 90 mcg/actuation HFA aerosol inhaler 1 - 2 puff INHALATION Q6H PRN (Reason: shortness of breath or wheezing) 30 Days Qty: 18 RF: 2 dicyclomine 10 mg capsule 10 mg PO QID PRN (Reason: abdominal discomfort) 30 Days Qty: 60 RF: 5 metformin 500 mg tablet extended release 24 hr See Rx Instructions .ROUTE .COMPLEX Qty: 30 RF: 1 metoprolol succinate 50 mg tablet extended release 24 hr See Rx Instructions .ROUTE .COMPLEX Qty: 90 RF: 0 canagliflozin [Invokana] 300 mg tablet See Rx Instructions .ROUTE .COMPLEX Qty: 30 RF: 5 topiramate [Topamax] 50 mg tablet 50 mg PO BID Qty: 60 RF: 0 ondansetron HCl 4 mg tablet 4 mg PO Q6H PRN (Reason: nausea) Qty: 30 RF: 0 meloxicam 15 mg tablet 15 mg PO DAILY Qty: 30 RF: 0 Lantus Solostar U-100 Insulin 100 unit/mL (3 mL) insulin pen 20 unit SUBCUT DAILY RF: 0 Discharge Orders: Discharge ED (Routine); Ordered 12/03/20 Ordered By: Timothy Bello Referrals: Ofe Paula FNP [Primary Care Provider] - 1-3 days Discharge Diet: Advance as tolerated Discharge Activity: Resume usual activity Patient Instructions: Cervical Spine Strain (ED) Coding Level of Care Code ED Supervisor Lead [employer]inery for Chg Fwd Exam Comprehensive Documented by User: Timothy Bello MD 12/03/20 19:52 HPI - Back Pain/Injury General: Chief Complaint: Back Pain/Injury Stated Complaint: FALL/ NECK AND BACK PAIN Time Seen by Provider: 12/03/20 16:48 PFSH ED PFSH: Medical History ADD (attention deficit disorder) Angina decubitus Carpal tunnel syndrome Chest pain Chronic pain syndrome GERD (gastroesophageal reflux disease) Hematuria History of hepatitis Hyperlipidemia Hypertension Irritable bowel syndrome Peptic ulcer disease Seasonal allergies Tobacco use Type 2 diabetes mellitus Surgical History H/O neck surgery H/O wrist surgery R History of back surgery History of carpal tunnel surgery L Family History Family/Other No problems noted. Other Adopted Social History Smoking and tobacco status: current every day smoker cigarettes Packs smoked per day: 0.5 [ Other cigarette details: Says has been cutting down ] and smokeless tobacco Quit status (tobacco): considering quitting Second hand smoke exposure: Yes Smoking risk assessment/counseling performed?: No Alcohol intake: current Alcohol intake frequency: holidays/special occasions only Alcohol type: hard liquor Desire information about alcohol rehabilitation?: No Lives independently: Yes Household members: spouse Marital status: Current occupational status: unemployed History of recent travel: No Current gender identity: Male Course Vital Signs: Vital signs: Vital Signs Temperature 98.6 F 12/03/20 16:55 Pulse Rate 84 12/03/20 19:56 Respiratory Rate 16 12/03/20 19:56 Blood Pressure 118/74 12/03/20 19:56 Pulse Oximetry 100 12/03/20 19:56 MDM - Back Pain/Injury MDM Narrative: Medical decision making narrative: Took patient over from Dr. Valenzuela. Patient's CT scans here are negative and he has no signs of an acute fracture. Patient is well-appearing here and likely has a cervical sprain. He is stable for discharge will place him on Naprosyn and Robaxin he is to ice the area. Patient is stable for discharge and is return if worsening. Imaging Data^: CT Head: Radiologist's impression: [address] [place] [address] CT Scan Report Signed Patient: Chris Junior Unit #: [id number] : 1975 Age/Sex: 45 / M ADM Date: 12/03/20 Loc: ER Room/Bed: Attending Dr: Ordering Provider/Ordering MD: Loyd Temple DO Date of Service: 12/03/20 Procedure(s): CT head wo con* [id number] Accession Number(s): [id number] Report Number: [id number] PROCEDURE INFORMATION: Exam: CT Head Without Contrast Exam date and time: 12/03/2020 5:33 PM Age: 45 years old Clinical indication: Injury or trauma; Fall; Blunt trauma (contusions or hematomas); Additional info: Fall/ closed head injury TECHNIQUE: Imaging protocol: Computed tomography of the head without contrast. Radiation optimization: All CT scans at this facility use at least one of these dose optimization techniques: automated exposure control; mA and/or kV adjustment per patient size (includes targeted exams where dose is matched to clinical indication); or iterative reconstruction. COMPARISON: CT head wo con* [id number] 05/17/2020 7:16 PM RADIATION DOSE METRICS: Total DLP (mGy-cm): 877.26 FINDINGS: Brain: Normal. No hemorrhage. Unremarkable white matter. No mass effect. Cerebral ventricles: No ventriculomegaly. Bones/joints: Unremarkable. No acute fracture. Paranasal sinuses: Visualized sinuses are unremarkable. No fluid levels. Mastoid air cells: Visualized mastoid air cells are well aerated. Soft tissues: Unremarkable. CT/CT head wo con* [id number] IMPRESSION: No acute intracranial abnormality. Radiation Dose CTDIVOL = (mGy): DLP = 877.2 ct lumbar: Radiologist's impression: [address] [place] [address] CT Scan Report Signed Patient: Chris Junior Unit #: [id number] : 1975 Age/Sex: 45 / M ADM Date: 12/03/20 Loc: ER Room/Bed: Attending Dr: Ordering Provider/Ordering MD: Timothy Bello MD Date of Service: 12/03/20 Procedure(s): CT lumbar spine wo con* [id number] Accession Number(s): [id number] Report Number: [id number] PROCEDURE INFORMATION: Exam: CT Lumbar Spine Without Contrast Exam date and time: 12/03/2020 6:20 PM Age: 45 years old Clinical indication: Injury or trauma; Fall; Blunt trauma (contusions or hematomas); Additional info: Pain, fall TECHNIQUE: Imaging protocol: Computed tomography images of the lumbar spine without contrast. Radiation optimization: All CT scans at this facility use at least one of these dose optimization techniques: automated exposure control; mA and/or kV adjustment per patient size (includes targeted exams where dose is matched to clinical indication); or iterative reconstruction. COMPARISON: CR XR lumbar spine min 4V [id number] 11/19/2020 9:50 AM RADIATION DOSE METRICS: Total DLP (mGy-cm): 2177.16 FINDINGS: Vertebrae: Pre-existing grade 1 L4-L5 spondylolisthesis unchanged from prior. No acute traumatic malalignment. Multilevel facet joint arthritis most significant L4-L5 intervertebral level. Bone mineralization is unremarkable. L1-L2: No significant disc protrusion. No severe spinal canal stenosis. No significant neural foraminal narrowing. L2-L3: No significant disc protrusion. No spinal canal stenosis. No neural foraminal narrowing. L3-L4: No significant disc protrusion. No severe spinal canal stenosis. No significant neural foraminal narrowing. L4-L5: No significant disc protrusion. No severe spinal canal stenosis. No significant neural foraminal narrowing. L5-S1: No significant disc protrusion. No severe spinal canal stenosis. No significant neural foraminal narrowing. Sacrum/coccyx: Sacroiliac joints are unremarkable. Other bones/joints: No fractures. No aggressive bone lesions. Soft tissues: No paraspinal intramuscular hematoma or fluid collection. No retroperitoneal soft tissue hematoma or fluid collection. CT/CT lumbar spine wo con* [id number] IMPRESSION: Negative for acute lumbar spine abnormality. ct c spine: Radiologist's impression: [address] [address] [address] Scan Report Signed Patient: Chris Junior Unit #: [id number] : 1975 Age/Sex: 45 / M ADM Date: 12/03/20 Loc: ER Room/Bed: Attending Dr: Ordering Provider/Ordering MD: Loyd Temple DO Date of Service: 12/03/20 Procedure(s): CT cervical spin wo con* [id number] Accession Number(s): [id number] Report Number: [id number] PROCEDURE INFORMATION: Exam: CT Cervical Spine Without Contrast Exam date and time: 12/03/2020 5:33 PM Age: 45 years old Clinical indication: Injury or trauma; Fall; Blunt trauma; Prior surgery; Additional info: Fall, neck pain TECHNIQUE: Imaging protocol: Computed tomography images of the cervical spine without contrast. Radiation optimization: All CT scans at this facility use at least one of these dose optimization techniques: automated exposure control; mA and/or kV adjustment per patient size (includes targeted exams where dose is matched to clinical indication); or iterative reconstruction. COMPARISON: CT Cervical Spine wo* [id number] 12/05/2018 4:16 PM RADIATION DOSE METRICS: Total DLP (mGy-cm): 728.64 FINDINGS: Vertebrae: No fractures. No traumatic malalignment. Surgical fusion C3, C4, C5, C6. No postsurgical complication. Severe disc disease C6-C7. Soft tissues: Unremarkable. Lungs: Lung apices are normal. CT/CT cervical spin wo con* [id number] IMPRESSION: 1. Negative for acute cervical spine injury. 2. No change in appearance of cervical spine relative to comparison on 12/05/2018. xr wrist lt: My impression: no acute abnormality Discharge Plan Discharge Patient Disposition: Home Clinical Impression: Fall Qualifiers: Encounter type: initial encounter Qualified Code(s): W19.XXXA - Unspecified fall, initial encounter Neck strain Qualifiers: Encounter type: initial encounter Qualified Code(s): S16.1XXA - Strain of muscle, fascia and tendon at neck level, initial encounter Condition: Stable Prescriptions: New Robaxin-750 750 mg tablet 750 mg PO Q6H Qty: 30 RF: 0 Naprosyn 500 mg tablet 500 mg PO BID PRN (Reason: pain) Qty: 20 RF: 0 No Action quetiapine 25 mg tablet 50 mg PO QPM RF: 0 tizanidine 4 mg tablet 4 mg PO Q8H PRN (Reason: muscle spasticity) 30 Days Qty: 90 RF: 5 omeprazole 20 mg capsule,delayed release(DR/EC) 20 mg PO BID 30 Days Qty: 60 RF: 5 albuterol sulfate [ProAir HFA] 90 mcg/actuation HFA aerosol inhaler 1 - 2 puff INHALATION Q6H PRN (Reason: shortness of breath or wheezing) 30 Days Qty: 18 RF: 2 dicyclomine 10 mg capsule 10 mg PO QID PRN (Reason: abdominal discomfort) 30 Days Qty: 60 RF: 5 metformin 500 mg tablet extended release 24 hr See Rx Instructions .ROUTE .COMPLEX Qty: 30 RF: 1 metoprolol succinate 50 mg tablet extended release 24 hr See Rx Instructions .ROUTE .COMPLEX Qty: 90 RF: 0 canagliflozin [Invokana] 300 mg tablet See Rx Instructions .ROUTE .COMPLEX Qty: 30 RF: 5 topiramate [Topamax] 50 mg tablet 50 mg PO BID Qty: 60 RF: 0 ondansetron HCl 4 mg tablet 4 mg PO Q6H PRN (Reason: nausea) Qty: 30 RF: 0 meloxicam 15 mg tablet 15 mg PO DAILY Qty: 30 RF: 0 Lantus Solostar U-100 Insulin 100 unit/mL (3 mL) insulin pen 20 unit SUBCUT DAILY RF: 0 Discharge Orders: Discharge ED (Routine); Ordered 12/03/20 Ordered By: Timothy Bello Referrals: Ofe Paula, CORPORATE STRATEGIST [Primary Care Provider] - 1-3 days Discharge Diet: Advance as tolerated Discharge Activity: Resume usual activity Patient Instructions: Cervical Spine Strain (ED) Coding Level of Care Code ED Supervisor Lead [employer] for Chg Fwd Exam Comprehensive
[2020-12-03] MEDS: HYDROcodone-acetaminophen 5-325 mg Tablet 2 TAB PO (17:30)
[2020-12-03] MEDS: ketorolac 30 mg/mL INJ 60 MG IM (17:31)
[2020-12-03 17:32] VITALS: BP 111/85; PULSE 65; RESP 16; O2SAT 98
--- NOTE | 2020-12-03 18:19 | CTR_ITS ---
PROCEDURE INFORMATION: Exam: CT Lumbar Spine Without Contrast Exam date and time: 12/03/2020 6:20 PM Age: 45 years old Clinical indication: Injury or trauma; Fall; Blunt trauma (contusions or hematomas); Additional info: Pain, fall TECHNIQUE: Imaging protocol: Computed tomography images of the lumbar spine without contrast. Radiation optimization: All CT scans at this facility use at least one of these dose optimization techniques: automated exposure control; mA and/or kV adjustment per patient size (includes targeted exams where dose is matched to clinical indication); or iterative reconstruction. COMPARISON: CR XR lumbar spine min 4V [id number] 11/19/2020 9:50 AM RADIATION DOSE METRICS: Total DLP (mGy-cm): 2177.16 FINDINGS: Vertebrae: Pre-existing grade 1 L4-L5 spondylolisthesis unchanged from prior. No acute traumatic malalignment. Multilevel facet joint arthritis most significant L4-L5 intervertebral level. Bone mineralization is unremarkable. L1-L2: No significant disc protrusion. No severe spinal canal stenosis. No significant neural foraminal narrowing. L2-L3: No significant disc protrusion. No spinal canal stenosis. No neural foraminal narrowing. L3-L4: No significant disc protrusion. No severe spinal canal stenosis. No significant neural foraminal narrowing. L4-L5: No significant disc protrusion. No severe spinal canal stenosis. No significant neural foraminal narrowing. L5-S1: No significant disc protrusion. No severe spinal canal stenosis. No significant neural foraminal narrowing. Sacrum/coccyx: Sacroiliac joints are unremarkable. Other bones/joints: No fractures. No aggressive bone lesions. Soft tissues: No paraspinal intramuscular hematoma or fluid collection. No retroperitoneal soft tissue hematoma or fluid collection. CT/CT lumbar spine wo con* [id number] IMPRESSION: Negative for acute lumbar spine abnormality. Radiation Dose CTDIVOL = (mGy): DLP = 2177.16 (mGy-cm)
[2020-12-03 19:00] VITALS: BP 118/74; PULSE 78; RESP 16; O2SAT 100
[2020-12-03 19:42] VITALS: BP 104/74; PULSE 71; RESP 16; O2SAT 97
[2020-12-03] MEDS: HYDROcodone-acetaminophen 5-325 mg Tablet 1 TAB PO (19:49)
[2020-12-03 19:56] VITALS: BP 118/74; PULSE 84; RESP 16; O2SAT 100
== END 2020-12-03 19:56 | disposition home or self-care (01) ==
PROVIDERS: Emergency Provider Emergency Medicine; PCP Registered Nurse
DX: S16.1XXA Strain of muscle, fascia and tendon at neck level, initial encounter (principal); W19.XXXA Unspecified fall, initial encounter
CPT/HCPCS: 70450; 72125; 72131; 73110; 96372; 99283; J1885

== ENCOUNTER → 2020-12-14 13:01 | Outpatient (BNVA) | payer MEDICARE, MEDICAID, SELFPAY | PROVIDERS: PCP Registered Nurse; Visit Provider Anesthesiology Pain Medicine | DX: M54.12 Radiculopathy, cervical region (principal); E11.22 Type 2 diabetes mellitus with diabetic chronic kidney disease; N18.30 Chronic kidney disease, stage 3 unspecified; F17.210 Nicotine dependence, cigarettes, uncomplicated; F17.220 Nicotine dependence, chewing tobacco, uncomplicated | CPT/HCPCS: 62321; J1100 ==

== ENCOUNTER 2020-12-18 09:00 | Outpatient (CLI) | payer MEDICARE, MEDICAID, SELFPAY ==
--- NOTE | 2020-12-18 11:00 | MR_ITS ---
WS: [id number] MRI LUMBAR SPINE NONCONTRAST TECHNIQUE: Sagittal T1, T2 and STIR imaging. Axial T1 and T2 imaging. CLINICAL INFORMATION: M54.5 - Low back pain COMPARISON: CT December 03, 2020 and MRI FINDINGS: Mild lumbar curve. No acute compression. Slight anterolisthesis L4 on L5. L1-L2: Normal. L2-L3: Right eccentric disc bulging with a tiny right foraminal protrusion. Small annular fissure. Mi ld right foraminal narrowing. Spinal canal and foramen are patent. Mild facet arthropathy. L3-L4: Mild annular bulging. Small left foraminal protrusion with contact of the exiting left L3 nerv e root. Mild left foraminal narrowing. Moderate facet arthropathy. Spinal canal is patent. L4-L5: Slight anterolisthesis L4 on L5. Annular bulging with slight effacement of ventral thecal sac. Mild central canal stenosis. Impingement traversing L5 nerve roots bilaterally. Moderate facet arthr opathy with small facet effusions. Mild left greater than right foraminal narrowing. L5-S1: Minimal annular bulging. Spinal canal and foramen are patent. Mild facet arthropathy. Prior postoperative changes cervical fusion seen on the oral therapist imaging. Visualized pelvic bony structures: Normal. Paravertebral soft tissues: Normal. MR/MR lumbar spine wo con* [id number] IMPRESSION: 1. Mild lumbar curve. No acute compression. 2. Slight anterolisthesis L4 on L5 with mild central canal stenosis and imping ement traversing L5 nerve roots bilaterally. This is unchanged from 2019. 3. Small bilateral foraminal protrusions L4-5 with mild left greater than righ t foraminal narrowing. 4. Small right foraminal protrusion L2-3 with a small annular fissure and mild right foraminal narrowing. 5. Small left foraminal protrusion L3-4 with slight contact of the exiting lef t L3 nerve root and mild left foraminal narrowing. 6. Moderate facet arthropathy L4-5 with small bilateral facet effusions can be seen with instability and/or synovitis.
== END 2020-12-18 09:01 | disposition home or self-care (01) ==
LOC: RADSHAW 09:01
PROVIDERS: PCP Registered Nurse; Visit Provider Orthopaedic Surgery
DX: M47.816 Spondylosis without myelopathy or radiculopathy, lumbar region (principal); M51.26 Other intervertebral disc displacement, lumbar region
CPT/HCPCS: 72148

== ENCOUNTER 2020-12-31 12:58 | Outpatient (CLI) | payer MEDICARE, MEDICAID, SELFPAY ==
--- NOTE | 2020-12-31 13:30 | CT_ITS ---
WS: [id number] CT ABDOMEN WITHOUT CONTRAST HISTORY: M62.08 - Separation of muscle (nontraumatic), other site Contiguous single phase 5 mm axial imaging performed to the abdomen. Oral contrast has not been provi ded. Coronal and sagittal reformats are submitted. All CT scans at [facility] use at leas t one of these dose optimization techniques: automated exposure control; mA and/or kV adjustment per patient size (includes targeted exams where dose is matched to clinical indication); or iterative rec onstruction. CONTRAST: None DLP: 949.88 mGycm COMPARISON: 05/09/2020 Lower thorax: Mild cardiomegaly. Small hiatal hernia. Liver: Liver is top normal size. Mild attenuation differences within the liver is probably due to fat ty infiltration and areas of sparing. No bile duct dilatation. Gallbladder: Normal. Pancreas: Normal. Spleen: Normal. Adrenals: Normal. Right kidney: Normal. Left kidney: Normal. Aorta: Normal. GI tract: Appendix is normal. No GI tract obstruction. Moderate distention of the stomach with food p roducts. No mucosal thickening. No adenopathy or free fluid. Abdominal wall: No hernia. Abdominal wall musculature although thin appears intact. Visualized osseous structures: Unremarkable. CT/CT abdomen wo con [id number] IMPRESSION: 1. No abdominal wall hernia. 2. Mild hepatic steatosis with areas of fatty sparing. 3. Small hiatal hernia.
== END 2020-12-31 12:59 | disposition home or self-care (01) ==
PROVIDERS: PCP Registered Nurse; Visit Provider Registered Nurse
DX: M62.08 Separation of muscle (nontraumatic), other site (principal); K76.0 Fatty (change of) liver, not elsewhere classified; K44.9 Diaphragmatic hernia without obstruction or gangrene
CPT/HCPCS: 74150

== ENCOUNTER → 2021-01-04 10:35 | Outpatient (BNVA) | payer MEDICARE, MEDICAID, SELFPAY | PROVIDERS: PCP Registered Nurse; Visit Provider Registered Nurse | DX: R35.0 Frequency of micturition (principal) | CPT/HCPCS: 81000 ==

== ENCOUNTER 2021-01-06 14:14 | Emergency (ER) | payer MEDICARE, MEDICAID, SELFPAY ==
[2021-01-06 14:18] VITALS: BP 132/82; PULSE 104; RESP 16; TEMP 36.6; O2SAT 97; BMI 28.0
--- NOTE | 2021-01-06 14:38 | W.ED.BACK ---
HPI - Back Pain/Injury General: Chief Complaint: Back Pain/Injury Stated Complaint: BACK PAIN Time Seen by Provider: 01/06/21 14:16 Source: patient Mode of arrival: wheelchair Limitations: no limitations History of Present Illness: HPI Narrative: Patient is a 45-year-old male who presents to ED today along with his for complaints of lower back pain. Patient tells me he has chronic neck and lower back pain. He is scheduled for neck surgery with Dr. Mitchell on 01/20. Patient tells me after he recovers from his neck surgery Dr. Mitchell has mentioned possibly operating on patient's lower back. He recently had MRI imaging of his lumbar spine. See report below. Patient tells me [facility] today when his back immediately caught and started spasming . Patient states he almost fell secondary to pain. He tells me he has had severe pain since rating his pain at a 10/10. He states he is having tingling to the lateral aspect of his left thigh. He denies saddle anesthesia. He has not had any episodes of bowel incontinence or urinary retention. MRI lumbar spine performed on 12/18/2020: MR/MR lumbar spine wo con* [id number] IMPRESSION: 1. Mild lumbar curve. No acute compression. 2. Slight anterolisthesis L4 on L5 with mild central canal stenosis and impingement traversing L5 nerve roots bilaterally. This is unchanged from 2019. 3. Small bilateral foraminal protrusions L4-5 with mild left greater than right foraminal narrowing. 4. Small right foraminal protrusion L2-3 with a small annular fissure and mild right foraminal narrowing. 5. Small left foraminal protrusion L3-4 with slight contact of the exiting left L3 nerve root and mild left foraminal narrowing. 6. Moderate facet arthropathy L4-5 with small bilateral facet effusions can be seen with instability and/or synovitis. MD elicited complaint: back pain Pertinent past history: prior back pain Onset (ago): hour(s) Timing: constant Severity: severe Pain scale (0-10): 10 Similar Symptoms Previously: Yes Quality: sharp Location: lumbar spine and left lower back Radiation: left upper leg Exacerbating factors: movement and walking Relieving factors: immobilization Associated symptoms: Reports difficulty walking (secondary to pain); Deny chills, dysuria, fever(s), nausea or vomiting Work related injury: No Review of Systems Const: Denies: fever(s) or chills Card: Denies: chest pain Resp: Denies: dyspnea GI: Denies: nausea or vomiting : Denies: flank pain or dysuria Musc: Reports: back pain; Denies: neck pain, extremity pain, extremity swelling, joint pain or joint swelling Neuro: Reports: sensory changes (tingling to L lateral thigh) and difficulty walking (secondary to pain); Denies: numbness in extremities or weakness in extremities PFSH ED PFSH: Medical History ADD (attention deficit disorder) Angina decubitus Carpal tunnel syndrome Chest pain Chronic pain syndrome GERD (gastroesophageal reflux disease) Hematuria History of hepatitis Hyperlipidemia Hypertension Irritable bowel syndrome Peptic ulcer disease Seasonal allergies Tobacco use Type 2 diabetes mellitus Surgical History H/O neck surgery H/O wrist surgery R History of back surgery History of carpal tunnel surgery L Family History Family/Other No problems noted. Other Adopted Social History (Updated 01/06/21 @ 14:23 by Lazaro Grimes RN) Smoking and tobacco status: current some day smoker cigarettes Packs smoked per day: 0 [ Other cigarette details: Says has been cutting down ] and smokeless tobacco Quit status (tobacco): considering quitting Second hand smoke exposure: Yes Smoking risk assessment/counseling performed?: No Alcohol intake: former Desire information about alcohol rehabilitation?: No Substance/Drug Use: never Lives independently: Yes Household members: spouse Marital status: Current occupational status: unemployed History of recent travel: No Current gender identity: Male Physical Exam Const: COMMON NORMALS: average body habitus, patient oriented x3, no limitations, healthy appearing, alert and well nourished GENERAL APPEARANCE: cooperative and in distress (appears uncomfortable) ORIENTATION/CONSCIOUSNESS: Yes awake, Yes oriented to person, Yes oriented to place and Yes oriented to time HENMT: COMMON NORMALS: normocephalic and atraumatic HEAD & SCALP: normocephalic and atraumatic Resp: COMMON NORMALS: normal respiratory effort and clear to auscultation bilaterally AUSCULTATION: clear to auscultation bilaterally Cardio: COMMON NORMALS: regular rate and regular rhythm RATE: regular rate RHYTHM: regular rhythm : COMMON NORMALS: Yes no CVA tenderness BLADDER/KIDNEY EXAM: Yes no CVA tenderness Back/Pelvis: COMMON NORMALS: no CVA tenderness THORACIC SPINE/UPPER BACK: Yes normal to inspection, Yes thoracic ROM normal, No thoracic spinal tenderness and No paraspinal muscle spasm LUMBAR SPINE/LOWER BACK: Yes normal to inspection, No lumbar spinal tenderness, No paraspinal muscle spasm and Yes straight leg raise positive left PELVIS: Yes sciatic notch tenderness on the left SACROILIAC JOINTS: Yes SI joint(s) abnormal SI joint details: tender to palpation (left) Extremity: COMMON NORMALS: normal to inspection GENERAL: Yes normal exam except as noted Neuro: COMMON NORMALS: patient oriented x3, moves all extremities, no focal motor deficits and no sensory deficits noted SENSORIUM/ORIENTATION: Yes alert, Yes oriented to person, Yes oriented to place and Yes oriented to time GAIT: Yes Unable to assess gait Skin: COMMON NORMALS: no rashes or lesions noted GENERAL SKIN EXAM: no rashes or lesions noted Course Vital Signs: Vital signs: Vital Signs Temperature 97.8 F 01/06/21 14:18 Pulse Rate 104 H 01/06/21 14:18 Respiratory Rate 16 01/06/21 14:18 Blood Pressure 132/82 01/06/21 14:18 Pulse Oximetry 97 01/06/21 14:18 MDM - Back Pain/Injury MDM Narrative: Medical decision making narrative: Patient here for what sounds like acute on chronic lower back pain. He has recently underwent MRI imaging of his lumbar spine. He has met with Dr. Mitchell regarding his neck and back. Patient feels better after IM medications here. Will place patient on a 5-day burst steroid treatment, NSAIDs, and increase his dose of gabapentin as he is currently only taking 300mg daily (will increase to 300mg BID x 1 week then 300mg TID thereafter). Recommend he continue to follow up with PCP. Surgery to cervical spine currently scheduled for 01/06/2021. Discharge Plan Discharge Patient Disposition: Home Clinical Impression: Chronic lumbar radiculopathy Condition: Stable Prescriptions: New diclofenac sodium 50 mg tablet,delayed release (DR/EC) 50 mg PO Q12H PRN (Reason: pain) Qty: 20 RF: 0 prednisone 10 mg tablet 60 mg PO DAILY 5 Days Qty: 30 RF: 0 Changed gabapentin 300 mg capsule 300 mg PO BID Qty: 90 RF: 0 No Action quetiapine 25 mg tablet 100 mg PO QPM RF: 0 tizanidine 4 mg tablet 4 mg PO Q8H PRN (Reason: muscle spasticity) 30 Days Qty: 90 RF: 5 (DME) Bone Stimulator E7048 See Rx Instructions .Route .MEDSUPPLY Qty: 1 RF: 0 albuterol sulfate [ProAir HFA] 90 mcg/actuation HFA aerosol inhaler 1 - 2 puff INHALATION Q6H PRN (Reason: shortness of breath or wheezing) 30 Days Qty: 18 RF: 2 dicyclomine 10 mg capsule 10 mg PO QID PRN (Reason: abdominal discomfort) 30 Days Qty: 60 RF: 5 topiramate [Topamax] 50 mg tablet 50 mg PO BID Qty: 60 RF: 0 Farxiga 10 mg tablet 10 mg PO DAILY Qty: 90 RF: 0 omeprazole 40 mg capsule,delayed release(DR/EC) 40 mg PO DAILY RF: 0 Viibryd 40 mg tablet 40 mg PO DAILY RF: 0 metoprolol succinate 50 mg tablet extended release 24 hr 50 mg PO DAILY RF: 0 metformin 500 mg tablet extended release 24 hr 500 mg PO DAILY RF: 0 Lantus Solostar U-100 Insulin 100 unit/mL (3 mL) insulin pen 30 unit SUBCUT BEDTIME RF: 0 Discharge Orders: Discharge ED (Routine); Ordered 01/06/21 Ordered By: Morenita Mclaughlin Referrals: Ofe Paula FNP [Primary Care Provider] - Coding Level of Care Code ED Brand Activation Manager for Chg Fwd Exam Comprehensive
[2021-01-06] MEDS: orphenadrine 30 mg/mL Inj 2 mL 60 MG IM (14:57)
[2021-01-06] MEDS: dexamethasone 10 mg/mL INJ 8 MG IM (14:57)
[2021-01-06] MEDS: ketorolac 60 mg/2 mL INJ IM (14:59)
[2021-01-06 15:59] LABS: Glucose Point of Care 76 mg/dL (70-110)
[2021-01-06 16:23] VITALS: BP 128/79; PULSE 99; RESP 18; O2SAT 97
== END 2021-01-06 16:25 | disposition home or self-care (01) ==
PROVIDERS: Emergency Provider Physician Assistant; PCP Registered Nurse
DX: M54.16 Radiculopathy, lumbar region (principal); Z79.4 Long term (current) use of insulin; E78.5 Hyperlipidemia, unspecified; I10 Essential (primary) hypertension; E11.9 Type 2 diabetes mellitus without complications; F17.210 Nicotine dependence, cigarettes, uncomplicated
CPT/HCPCS: 36416; 82962; 96372; 99283; J1100; J1885; J2360

== ENCOUNTER → 2021-01-15 12:29 | Outpatient (BNVA) | payer MEDICARE, MEDICAID, SELFPAY | PROVIDERS: PCP Registered Nurse; Visit Provider Orthopaedic Surgery | DX: Z20.828 Contact with and (suspected) exposure to other viral communicable diseases (principal) | CPT/HCPCS: 87635 ==

== ENCOUNTER 2021-01-20 15:34 | Inpatient (IN) | payer MEDICARE, MEDICAID, SELFPAY ==
[2021-01-15 09:17] VITALS: BMI 28.5
--- NOTE | 2021-01-15 09:51 | ANES.PREANE2 ---
Pre-Anesthetic Assessment Pre-Anesthetic Assessment: Height/Weight: Height 1.73 m Weight 85.275 kg Preop Diagnosis: cervical spondylosis with radiculopathy Proposed Procedure: Operation Date: 01/20/21 11:15 Proposed Procedures p C2-T2 Cervical Posterior Fusion [id number] [id number] [id number] [id number] M47.22(Not Applicable) - DO chanel Stevens C3/4 C6/7 laminectomy partial fecetetomy and foraminotomy(Not Applicable) - Darius Mitchell DO Familial anesthetic complications: had to have a reversal agent because he wasn't waking up after surgery, he doesn't remember which surgery Social: Social History: Tobacco and No alcohol Comment: chews and smokes Exam: Pre-Anes Outpt Exam: alert, oriented x 3, clear to auscultation bilaterally and regular rate & rhythm Airway: MP: 2 Dentition: False Pulmonary: Pulmonary: Asthma CV/HEM: CV/HEM: Angina (Stable) and HTN : : Chronic renal Insufficiency Hepatic: Hepatic: Hepatitis (C) Metabolic: Metabolic: DM Anesthetic Plan: ASA status: 3 Anesthesia: General Risk of > 500 ml blood loss (7ml/kg in children): No PFSH Anesthesia PFSH: Medical History ADD (attention deficit disorder) Angina decubitus Carpal tunnel syndrome Chest pain Chronic pain syndrome GERD (gastroesophageal reflux disease) Hematuria History of hepatitis Hyperlipidemia Hypertension Irritable bowel syndrome Peptic ulcer disease Seasonal allergies Tobacco use Type 2 diabetes mellitus Surgical History H/O neck surgery H/O wrist surgery R History of back surgery History of carpal tunnel surgery L Family History Family/Other No problems noted. Other Adopted Social History (Updated 01/06/21 @ 14:23 by Lazaro Grimes RN) Smoking and tobacco status: current some day smoker cigarettes Packs smoked per day: 0 [ Other cigarette details: Says has been cutting down ] and smokeless tobacco Quit status (tobacco): considering quitting Second hand smoke exposure: Yes Smoking risk assessment/counseling performed?: No Alcohol intake: former Desire information about alcohol rehabilitation?: No Substance/Drug Use: never Lives independently: Yes Household members: spouse Marital status: Current occupational status: unemployed History of recent travel: No Current gender identity: Male Data Anesthesia Cardiac Studies: No Data to Display
[2021-01-15 10:13] LABS: Basophils % 0.3 %; Eosinophils # 0.1 10^3/uL (0.0-0.8); Eosinophils % 1.2 %; Hematocrit 45.8 % (42.0-52.0); Hemoglobin 14.3 g/dL (11.7-16.6); Lymphocytes # 2.2 10^3/uL (0.8-4.8); Mean Corpuscular HGB Conc 31.2 g/dL (30.0-36.0); Mean Corpuscular Hemoglobin 26.9 pg (28.0-34.0); Mean Corpuscular Volume 86.1 fL (80-94); Mean Platelet Volume 10.7 fL (7.4-10.4); Monocytes # 1.2 10^3/uL (0.2-0.9); Monocytes % 13.2 %; Neutrophils # 5.34 10^3/uL (1.8-7.7); Neutrophils % 59.8 %; Nucleated Red Blood Cells % 0 %; Platelet Count 225 10^3/cmm (130-400); Red Blood Count 5.32 10^6/uL (4.1-5.3); Red Cell Distribution Width 13.5 % (12.1-15.1); White Blood Count 8.9 10^3/uL (4.0-10.0)
[2021-01-15 10:30] LABS: Anion Gap 14.1 (5-19); Blood Urea Nitrogen 16 mg/dL (6-20); Calcium 8.9 mg/dL (8.5-10.5); Carbon Dioxide 28 mmol/L (22-29); Chloride 100 mmol/L (98-107); Glomerular Filtration Rate 72.7 mL/min (90-130); Glucose 141 mg/dL (65-115); Osmolality Calculated 290 mOsm/kg (285-295); Potassium 4.1 mmol/L (3.5-5.1); Sodium 138 mmol/L (136-145)
[2021-01-20] VITALS (16 sets, daily range): BP systolic 108–158; BP diastolic 66–96; PULSE 69–93; RESP 10–18; TEMP 36.1–36.6; O2SAT 94–100
--- NOTE | 2021-01-20 | XR_ITS ---
WS: [id number] AP C-arm fluoroscopy view of the cervical spine in the OR, 01/20/2021 Clinical Data: SPINAL STENOSIS Comparison: Cervical spine, 11/19/2020. Findings: There are multiple bilateral pedicle screws in C2-T1. XR/XR cervical spine 1V [id number] Impression: Multiple bilateral pedicle screws.
--- NOTE | 2021-01-20 | SCC_ITS ---
Procedure Done: 1. C2-T PSF 2. C2-T2 posterior instrumentation 3. C3 laminectomy with partial facetectomies and foraminotomies of C3/4 4. C4 laminectomy with partial facetectomies and foraminotomies of C4/5 5. C5 laminectomy with partial facetectomies and foraminotomies of C5/6 6. C6 laminectomy with partial facetectomies and foraminotomies of C6/7 7. C7 laminectomy 8. application and removal of gibbons tongues 9. use of autograft through same incision 10. use of allograft 5.92 seconds of fluoroscopic guidance, for a cumulative dose of 5.92 mGy, was provided to Dr. Mitchell by the radiology department. C-arm images of the cervical spine were saved for the patient's permanent record. [facility]
[2021-01-20] MEDS: sodium chloride 0.9% 1,000 ML 30 ML IV (08:47)
[2021-01-20 08:59] LABS: Glucose Point of Care 162 mg/dL (70-110)
--- NOTE | 2021-01-20 09:20 | P.ANESUD_ITS ---
Pre-Anesthetic Update Pre-Anesthetic Assessment: Date of Surgery/Procedure: 01/20/21 Preop Mary Ellen gnosis: cervical spondylosis with radiculopathy Proposed Procedure: Operation Date: 01/20/21 09:30 Proposed Procedures p C2-T2 Cervical Posterior Fusion 27600 75836 18393 80182 73898 68653 M47.22(Not Applicable) - Darius Mitchell, DO s C3/4 C6/7 laminectomy partial fecetetomy and foraminotomy(Not Applicable) - Darius Mitchell, DO Any changes to Pre-Anesthetic Assessment?: No Last Intake: Intake Last Liquid Date 01/20/21 Last Liquid Time 06:30 Last Solid Date 01/19/21 Last Solid Time 22:30 Labs Last 48hrs: Laboratory Results - last 48 hr 01/20/21 08:55 POC Glucose 162 H Vitals: Temperature 97.2 F L 01/20/21 08:13 Pulse Rate 69 01/20/21 08:13 Respiratory Rate 18 01/20/21 08:13 Blood Pressure 118/77 01/20/21 08:13 Blood Pressure Ella n 90 01/20/21 08:13 Pulse Oximetry 99 01/20/21 08:13 Oxygen Delivery Me thod 01/20/21 08:15 Exam: Pre-Anes Outpt Exam: alert, oriented x 3, clear to auscultation bilaterally and regular rate & rhythm Cardiac Studies: No Data to Display
[2021-01-20] MEDS: midazolam 1 mg/mL INJ 2 mL 2 MG IVP (09:49)
--- NOTE | 2021-01-20 10:03 | W.PM.OPSUD ---
Surgery/Procedure H&P Update DATE OF PROCEDURE: January 20, 2021 DATE H&P PERFORMED: 12/22/20 H&P UPDATE INFORMATION: I have reviewed H&P completed within last 30 days, I have examined patient prior to procedure and No changes to prior documentation PREOP DIAGNOSIS: cervical spondylosis with radiculopathy PLANNED PROCEDURE: Operation Date: 01/20/21 09:30 Proposed Procedures p C2-T2 Cervical Posterior Fusion [id number] 64045 85983 30358 38255 51274 M47.22(Not Applicable) - Darius Mitchell DO s C3/4 C6/7 laminectomy partial fecetetomy and foraminotomy(Not Applicable) - Darius Mitchell DO
[2021-01-20] MEDS: heparin, porcine 1,000 unit/mL INJ 10 mL 10000 UNIT IRRIGATION (12:20)
--- NOTE | 2021-01-20 15:39 | PM.OP ---
Operative Report Date of procedure: January 20, 2021 Pre-op Diagnosis: cervical spondylosis with radiculopathy Post-op diagnosis: same Procedure Done: 1. C2-T PSF 2. C2-T2 posterior instrumentation 3. C3 laminectomy with partial facetectomies and foraminotomies of C3/4 4. C4 laminectomy with partial facetectomies and foraminotomies of C4/5 5. C5 laminectomy with partial facetectomies and foraminotomies of C5/6 6. C6 laminectomy with partial facetectomies and foraminotomies of C6/7 7. C7 laminectomy 8. application and removal of gibbons tongues 9. use of autograft through same incision 10. use of allograft Surgeon: Darius Mitchell Anesthesia: General Estimated blood loss (mL): 25 Condition: stable Disposition: PACU Procedure: 1. C2-T PSF 2. C2-T2 posterior instrumentation 3. C3 laminectomy with partial facetectomies and foraminotomies of C3/4 4. C4 laminectomy with partial facetectomies and foraminotomies of C4/5 5. C5 laminectomy with partial facetectomies and foraminotomies of C5/6 6. C6 laminectomy with partial facetectomies and foraminotomies of C6/7 7. C7 laminectomy 8. application and removal of gibbons tongues 9. use of autograft through same incision 10. use of allograft Patient is brought to the operative suite after undergoing anesthesia and Gibbons tongs were attached to his head. Patient then positioned prone all areas impingement were well-padded. Patient was then prepped and draped normal sterile fashion. Skin incision made from C2 down to T2 subperiosteal dissection was made after cutting through the cervical fascia. Subperiosteal dissection was made out to the lateral masses from C2-C7 bilaterally. And then out to the transverse processes of T1 and T2 bilaterally. Tractors were placed. Attention was then brought to placing the screws. C2 screws were placed bilaterally and these were pars screws. A 26 mm screws placed on the left and a 16 mm was placed on the right. Lateral mass screws were placed bilaterally one was placed at C3 on the right bilateral C4-C5 and C6 use were placed. And then pedicle screws were placed at T1 and T2 bilaterally. Once all the screws were placed attention was then brought to performing the laminectomies facetectomies and foraminotomies. Tender was brought to the C3-4 level the laminectomies performed at C3 using a high-speed bur and Kerrison rongeur. The C3 lamina and spinous process were taken down and the lamina was removed at C3 this was then done at C4. Foraminotomies and partial facetectomies were done at C3-4 bilaterally. Next attention was brought to the C6-7 level. Laminectomy was performed at C6 and C7 bilaterally. Once this was completed using high-speed bur and Kerrison as it was done in C3-4 level partial facetectomies and foraminotomies were performed at C6-7. Once this was completed the dura was floating up and being impinged upon at the C5 level. At this point I elected to take down the lamina of C5. This was again done using high-speed bur and Kerrison. Laminectomies and partial facetectomies were performed at C5-6 and C4-5 bilaterally. So all in all patient ended up with laminectomies at C3-C4-C5 and C6 bilaterally. And I did partial facetectomies at C4-5 C3-4 C5-6 and C6-7. And foraminotomies at C3-4 bilaterally and C6-7 bilaterally. A Kerrison was then used to probe the foramen to ensure there completely decompressed. The dura was in good repair and had significantly swelled since the laminectomies. Once the decompression was completed attention was then brought to decorticating the lateral masses and lamina. This was done from C2 down to T2. And then bone graft from the laminectomy was mixed with the osteoamp and this was packed into the gutters. This was done bilaterally. And then wound was closed with 0 Vicryl strata fix oh deep drain was placed prior to this. And then the skin was closed with 2 oh strata fix and 4-0 Monocryl and glue. Sterile dressings applied. Patient was flipped into the supine position the Gibbons tongs were removed and patient was transferred to the PACU in stable condition after placing a cervical collar.
[2021-01-20] MEDS: lactated ringers 1,000 ML 90 ML IV (17:35)
[2021-01-20] MEDS: docusate sodium 100 mg Capsule PO (17:36)
[2021-01-20] MEDS: quetiapine 25 mg Tablet 100 MG PO (17:36)
[2021-01-20] MEDS: gabapentin 300 mg Capsule PO (17:36)
[2021-01-20] MEDS: topiramate 25 mg Tablet 50 MG PO (17:41)
--- NOTE | 2021-01-20 18:02 | ANE.PACU2 ---
Inpatient post-anesthesia follow up: Airway intact: Yes Vital signs: Temperature 98 F Pulse Rate 89 Respiratory Rate 18 Blood Pressure 145/86 Pulse Oximetry 94 Oxygen Delivery Me thod Room Air Oxygen Flow Rate 8 Fraction of Inspir ed Oxygen Hydration adequate: Yes Nausea and vomiting: No Pain level: 2 Mental status: Baseline
[2021-01-20] MEDS: tizanidine 4 mg Tablet PO (18:18)
--- NOTE | 2021-01-20 18:18 | PC.RESP ---
Smoking Cessation information sent to patient.
[2021-01-20] MEDS: oxyCODONE 5 mg IR Tab/Cap PO (20:20)
[2021-01-20 21:34] LABS: Glucose Point of Care 404 mg/dL (70-110)
[2021-01-20] MEDS: insulin glargine 100 units/1 mL 30 UNIT SUBCUT (21:35)
[2021-01-20] MEDS: ketorolac 30 mg/mL INJ IVP (23:16)
[2021-01-21] VITALS (8 sets, daily range): BP systolic 105–111; BP diastolic 68–74; PULSE 88–99; RESP 16–22; TEMP 36.7–37.2; O2SAT 95–97
[2021-01-21] MEDS: tizanidine 4 mg Tablet PO (00:49)
[2021-01-21] MEDS: oxyCODONE 5 mg IR Tab/Cap PO (00:49)
[2021-01-21] MEDS: HYDROmorphone 1 mg/mL INJ 1 mL IVP ×2 (03:28→09:24)
[2021-01-21] MEDS: lactated ringers 1,000 ML 90 ML IV (05:56)
--- NOTE | 2021-01-21 08:02 | P.DS_ITS ---
Discharge Providers Date of Admission: 01/20/21 15:34 Date of Discharge: January 21, 2021 Attending Provider at Admission: Darius Mitchell DO Attending Provider at Discharge: Darius Mitchell DO Primary Care Provider: MIKEY Lucero Reason for Visit Reason for Visit: Spinal stenosis, lumbar region Hospital Course Hospital Course Patient is admitted on 01/20/2021. He had surgery a C2-T2 posterior spine fusion. He will be discharged today on 01/21/2021. There were no issues or concerns. Physical Exam Narrative: EXAM NARRATIVE: 5/5 strength, sensation intact Urinary Catheter Management^: F: Cath Placed During This Visit: yes, but has since been removed by the nurse Urinary Catheter Date of Insertion: 01/20/21 Urinary Catheter Time of Insertion: 11:15 Date Urinary Catheter Removed: 01/20/21 Time Urinary Catheter Discontinued: 15:14 Discharge Data Data Completed and Pending: Completed Studies During Hospitalization Category Date Time Status XR cervical spine 1V 33367 Routine Exams 01/20/21 Completed Pending at discharge Category Date Time Status C-arm Fluoroscopy 50369 Routine Exams 01/20/21 08:09 Ordered Labs from last 24 hours 01/20/21 01/20/21 21:32 08:55 POC Glucose 404 H 162 H Vitals: Last Vital Signs Temp 99 F 01/21/21 04:00 Pulse 99 01/21/21 04:00 Resp 17 01/21/21 04:00 BP 110/72 01/21/21 04:00 Pulse Ox 95 01/21/21 04:00 Discharge Plan Discharge Patient Disposition: Home Condition: Stable Prescriptions: New oxycodone 10 mg tablet 10 mg PO Q4H PRN (Reason: pain) 7 Days Qty: 60 RF: 0 oxycodone 10 mg tablet 10 mg PO Q4H PRN (Reason: pain) 7 Days Qty: 60 RF: 0 Continued quetiapine [Seroquel] 25 mg tablet 100 mg PO QPM RF: 0 (DME) Bone Stimulator E7048 See Rx Instructions .Route .MEDSUPPLY Qty: 1 RF: 0 albuterol sulfate [ProAir HFA] 90 mcg/actuation HFA aerosol inhaler 1 - 2 puff INHALATION Q6H PRN (Reason: shortness of breath or wheezing) 30 Days Qty: 18 RF: 2 dicyclomine 10 mg capsule 10 mg PO QID PRN (Reason: abdominal discomfort) 30 Days Qty: 60 RF: 5 topiramate [Topamax] 50 mg tablet 50 mg PO BID Qty: 60 RF: 0 Farxiga 10 mg tablet 10 mg PO DAILY Qty: 90 RF: 0 metformin 500 mg tablet extended release 24 hr See Rx Instructions .ROUTE .COMPLEX Qty: 30 RF: 0 ondansetron HCl 4 mg tablet 4 mg PO Q6H PRN (Reason: nausea) Qty: 30 RF: 0 tizanidine [Zanaflex] 4 mg tablet 4 mg PO Q8H PRN (Reason: muscle spasticity) RF: 0 cyclobenzaprine 10 mg tablet 10 mg PO DAILY RF: 0 omeprazole 40 mg capsule,delayed release(DR/EC) 40 mg PO DAILY RF: 0 metoprolol succinate 50 mg tablet extended release 24 hr 50 mg PO DAILY RF: 0 Lantus Solostar U-100 Insulin 100 unit/mL (3 mL) insulin pen 30 unit SUBCUT BEDTIME RF: 0 gabapentin 300 mg capsule 300 mg PO BID Qty: 90 RF: 0 Discharge Orders: Discharge Order (Routine); Ordered 01/21/21 Ordered By: Darius Mitchell Discharge Diet: Advance as tolerated Discharge Activity: Limit activity as instructed Activity Restrictions/Additional Instructions: Thank you for choosing [facility] for your care! The following is a list of instructions, from your provider, to follow upon your discharge to ensure you have the optimal recovery from your recent injury or surgery. Anterior Cervical Discectomy and Fusion: What to Expect at Home Your Recovery Follow-up care is a mo part of your treatment and safety. Be sure to make and go to all appointments, and call your doctor if you are having problems. If you do not already have a follow-up appointment made, call office in the next 1-3 days to make follow up appointment for 2 weeks at [phone]. It is also a good idea to know your test results and keep a list of the medicines you take. You can expect your neck to feel stiff or sore after surgery. This should improve in the weeks after surgery. But it may take 4 to 6 months for you to get better completely. You may have trouble sitting or standing in one position for very long and may need pain medicine in the weeks after your surgery. It may take 4 to 6 weeks to get back to your usual activities, but it may depend on what kind of surgery you had. Your throat will feel sore and it may be difficult to swallow for the first 3 days after your surgery. As long as you can get liquids down without difficulty, this should slowly improve, otherwise call our office or seek medical attention if it becomes increasingly difficult to get anything down including liquids. Avoid hot liquids for first 3-5 days. Soothing foods/liquids such as jello, pudding, and luke warm soups are recommended until swallowing improves. Staying elevated will also help, it's advised you keep propped up at while sleeping to help reduce the swelling. You may use an ice pack directly on your incision or around it on the front of your neck, using a cloth to protect your skin; and a heating pad to the back of your neck as needed. Do not use over the counter anti-inflammatory medications (Ibuprofen, Motrin, Aleve, Advil, etc) Taking these meds after having a fusion can delay fusion rates, we recommend you avoid them for the first 3 months after your surgery[address] Dr. Mitchell may advise you to work with a physical therapist to strengthen the muscles around your neck and back - this will be discussed at your follow - up appointments. The pain or numbness you were having in your arms before surgery should get better or go away completely. This care sheet gives you a general idea about how long it will take for you to recover. But each person recovers at a different pace. Follow the steps below to get better as quickly as possible. How can you care for yourself at home? Activity ? Rest when you feel tired. Getting enough sleep will help you recover. ? Try to walk each day. Start by walking a little more than you did the day before. Bit by bit, increase the amount you walk. Walking boosts blood flow and helps prevent pneumonia and constipation. Walking may also decrease your muscle soreness after surgery. ? No lifting anything that is more that 5 pounds. This may include heavy grocery bags and milk containers, a heavy briefcase or backpack, cat litter or dog food bags, a child, or a vacuum smoking pipes cleaner. ? Avoid strenuous activities, such as bicycle riding, jogging, weightlifting, or aerobic exercise, until your doctor says it is okay. ? Do not drive until your follow-up visit after your surgery, or until your doctor says it isokay. ? Avoid taking long car trips for 2 to 4 weeks after surgery. Your neck may become tired and painful from sitting too long in one position. ? You will probably need to take 4 to 6 weeks off from work. It depends on the type of work you do and how you feel. ? You may have sex as soon as you feel able, but avoid positions that put stress on your neck or cause pain. Diet ? You can eat your normal diet. If your stomach is upset, try bland, low-fat foods like plain rice, broiled chicken, toast, and yogurt ? Drink plenty of fluids. If you have kidney, heart, or liver disease and have to limit fluids, talk with your doctor before you increase the amount of fluids you drink. ? You may notice that your bowel movements are not regular right after your surgery. This is common. Try to avoid constipation and straining with bowel movements. You may want to take a fiber supplement every day. If you have not had a bowel movement after a couple of days, ask your doctor about taking a mild laxative. Medicines ? Take pain medicines exactly as directed. 1. If Dr. Mitchell gave you a prescription medicine for pain, take lt as prescribed. 2. Do not take two or more pain medicines at the same time unless the doctor told you to. Many pain medicines have acetaminophen, which is Tylenol. Too much acetaminophen {Tylenol) can be harmful. 3. If you think your pain pill is making you sick to your stomach: 4. Take your pills after meals (unless your doctor has told you not to). 5. Ask your Dr. for a different pain pill. Incisioncare ? Remove your dressing 48hours after your surgery. Ok to shower and get the incision wet. Do not overtly wash your incision. When done, pad dry, leave open to air thereafter. Avoid creams and ointments directly on your incision. ? Your sutures in the incision will dissolve and fall out on their own. ? Keep the area clean and dry. You may cover it with a gauze bandage if it weeps or rubs against clothing; if you choose to do this, change the dressing everyday. Other instructions ? Use a heating pad, hot water bottle, or gentle massage on your back to reduce stiffness. Avoid putting heat on your incision When should you call for help? ? Call 911 anytime you think you may need emergency care. For example, call if: ? You pass out (lose consciousness). ? You have sudden chest pain and shortness of breath, or you cough upblood. ? You cannot swallow. ? You have severe pain in your neck or back. ? Call your Dr. or seek immediate medical care if: ? You have pain that does not get better after you take pain pills. ? You have loose stitches, or your incision comes open. ? You have blood or fluid draining from the incision. ? You have signs of infection, such as: 1. Increased pain, swelling, warmth, or redness. 2. Red streaks leading from the site. 3. Pus draining from the site. 4. Swollen lymph nodes in your neck or armpits. 5. A fever. ? You have severe pain in your arms. ? You have new or increased weakness or numbness in your arms. ? Watch closely for any changes in your health, and be sure to contact your doctor if: ? You do not have a bowel movement after taking a laxative. Discharge Attestations Time Spent in Discharge Care*: greater than 30 min Quality Metrics Clinical Quality Measures During this hospital stay, did patient experience: None Coding Level of Care Code Acute Marcos PULIDO DC note
[2021-01-21] MEDS: gabapentin 300 mg Capsule PO (08:51)
[2021-01-21] MEDS: cyclobenzaprine 10 mg Tablet PO (08:51)
[2021-01-21] MEDS: docusate sodium 100 mg Capsule PO (08:51)
[2021-01-21] MEDS: metoprolol succinate ER (24 HR) 50 mg Tablet PO (08:51)
[2021-01-21] MEDS: pantoprazole DR 40 mg Tablet PO (08:51)
--- NOTE | 2021-01-21 09:16 | PC.NURSE ---
Drain removed from pt. pt tolerated well.
--- NOTE | 2021-01-21 10:59 | PC.NURSE ---
pt iv taken out and intact. discharge instructions explained and all questions answered. pt taken to exit via wheelchair.
--- NOTE | 2021-01-21 11:05 | PC.CHAP ---
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 [] Patient/Family/Request visit [] Outpatient visit [] Follow-up visit [] Physician referral [] Code/Alert [x] Routine visit [] Staff referral [] Actively dying [] Patient sleeping [] Family support [] [] Out of room [] Palliative care [] [x] Receiving care in room [] Pre-surgical visit [] Trauma [] Long length of stay [] ICU visit [x] Other: is going home now Relational/Emotional Strength [x] Patient feels connected with others/family/visitors/staff [] Distress [] Loneliness/isolation [] Abandonment Spirituality of Patient [] Person of Odette [] Attends Sabianist of their Odette [] Believes in Prayer [] Reads Bible or Mormon materials [] There are Spiritual issues to be addressed Operations Trainer Interventions [] Prayer [] Active listening [] Non-anxious presence [] Spiritual/emotional support [] Crisis/trauma care [] Spiritual counseling [] Bereavement support [] Provided bereavement packet [] Provided Bible/devotional materials [] Provided toy/stuffed animal, coloring book to patient or family member [] Provided Communion [] Anointing/[place] [] Salvation [] Completed spiritual assessment [] Other: Impact on Illness or Injury [] Angry [] Fearful [] Anxious [] Often cries [] Exhaustion [] Unable to work [] Unable to attend shinto [] Unable to walk/stand [] Unable to read [] Unable to drive [] Unable to eat/drink [] Unable to sleep [] Unable to be with family [] Patient intubated [] Other: Summary is going home now + 1 Time spent with patient 5 mins
== END 2021-01-21 11:07 | disposition home or self-care (01) | DRG 460 ==
LOC: MEDSURG 18:21
PROVIDERS: Admitting Provider Orthopaedic Surgery; PCP Registered Nurse; Visit Provider Orthopaedic Surgery
PROC: 0RG207J Fusion of 2 or more Cervical Vertebral Joints with Autologous Tissue Substitute, Posterior Approach, Anterior Column, Open Approach (ICD-10-PCS; CPT 22600; principal; 2021-01-20 09:10)
PROC: 0RG207J Fusion of 2 or more Cervical Vertebral Joints with Autologous Tissue Substitute, Posterior Approach, Anterior Column, Open Approach (ICD-10-PCS; 2021-01-20 09:10)
DX: M47.22 Other spondylosis with radiculopathy, cervical region (principal); M48.062 Spinal stenosis, lumbar region with neurogenic claudication; F98.8 Other specified behavioral and emotional disorders with onset usually occurring in childhood and adolescence; G89.4 Chronic pain syndrome; K21.9 Gastro-esophageal reflux disease without esophagitis; E78.5 Hyperlipidemia, unspecified; I10 Essential (primary) hypertension; K58.9 Irritable bowel syndrome, unspecified; Z87.11 Personal history of peptic ulcer disease; E11.9 Type 2 diabetes mellitus without complications; F17.210 Nicotine dependence, cigarettes, uncomplicated; M62.08 Separation of muscle (nontraumatic), other site; R35.0 Frequency of micturition; Z79.51 Long term (current) use of inhaled steroids; Z79.4 Long term (current) use of insulin
CPT/HCPCS: 36415; 36416; 51702; 72020; 76000; 80048; 82962; 85025; 96372; 97112; 97161; C1713; J0330; J0690; J1100; J1170; J1644; J1815; J1885; J2250; J2405; J2704; J3010; J3490; J7030; L0174

== ENCOUNTER 2021-01-22 13:01 | Inpatient (IN) | payer MEDICARE, MEDICAID, SELFPAY ==
[2021-01-22] VITALS (18 sets, daily range): BP systolic 89–145; BP diastolic 72–111; PULSE 104–128; RESP 12–24; TEMP 36.2–36.8; O2SAT 90–99
--- NOTE | 2021-01-22 13:47 | XR_ITS ---
WS: [id number] Portable AP upright chest, 01/22/2021 Clinical Data: shortness of breath Comparison: Portable chest, 05/29/2020. Findings: No nodules, masses or effusions are seen. The heart is normal. The pulmonary vascularity is not increased. No pneumonia or pneumothorax is seen. The patient has had a posterior cervical and up per thoracic fusion with bilateral pedicle screws in vertebra T1 and T2. Surgical inocencia are still v isible over the T1 and T2 vertebral bodies. XR/XR chest 1V portable [id number] Impression: Negative chest.
--- NOTE | 2021-01-22 13:47 | ECG_ITS ---
[facility] Test Date: 2021-01-22 Pat Name: Chris Junior Department: Room: Gender: Male Monitoring Specialist: : 1975 Requested By: Zeinab Bustamante Order Number: [id number] Lit MD: Luis Felipe Feldman M.D. Measurements Intervals Turner Rate: 114 P: 25 [place]: 164 QRS: 45 QRSD: 101 T: 1 QT: 293 QTc: 405 Interpretive Statements SINUS TACHYCARDIA Compared to ECG 05/12/2020 22:05:35 No significant changes Electronically Signed On 01-22-2021 18:30:23 CDT by Luis Felipe Feldman M.D. [email or web address]
--- NOTE | 2021-01-22 13:58 | PC.NURSE ---
pt's oxygen saturation readings consistently ranging from 79%-89%. ED physician in room and aware of readings. Orders for ABG on room air taken and RT notified. Per verbal order of ER physician Pt is left on room air and remains off cardiac monitoring. Pt is awake and talking without any increased work of breathing seen.
[2021-01-22 14:07] LABS: Basophils # 0.1 10^3/uL (0.0-0.1); Basophils % 0.4 %; Hematocrit 34.8 % (42.0-52.0); Hemoglobin 10.5 g/dL (11.7-16.6); Lymphocytes # 1.7 10^3/uL (0.8-4.8); Lymphocytes % 7.1 %; Mean Corpuscular HGB Conc 30.2 g/dL (30.0-36.0); Mean Corpuscular Hemoglobin 27.7 pg (28.0-34.0); Mean Corpuscular Volume 91.8 fL (80-94); Mean Platelet Volume 10.7 fL (7.4-10.4); Monocytes # 2.5 10^3/uL (0.2-0.9); Monocytes % 10.1 %; Neutrophils # 20.17 10^3/uL (1.8-7.7); Neutrophils % 81.8 %; Nucleated Red Blood Cells % 0 %; Platelet Count 178 10^3/cmm (130-400); Red Blood Count 3.79 10^6/uL (4.1-5.3); Red Cell Distribution Width 13.9 % (12.1-15.1); White Blood Count 24.7 10^3/uL (4.0-10.0)
[2021-01-22 14:21] LABS: ABG PCO2 48.3 mmHg (35-45); ABG PH Result 7.29 (7.35-7.45); Arterial Blood Gas Hematocrit 32.4 % (42-52); Base Excess ABG -3.3 mmol/L (-2.0-2.0); Blood Gas Operator Identificat AMH; Blood Gas Sample Site Brachial, right; Blood Gas Sample Type Arterial; HCO3 ABG 23.4 mmol/L (22-26); Oxygen Device ROOM AIR; PO2 ABG 49.3 mmHg (80.0-100.0)
[2021-01-22 14:23] LABS: Alanine Aminotransferase 22 U/L (0-41); Albumin Level 3.7 g/dL (3.5-5.2); Alkaline Phosphatase 67 IU/L (40-130); Anion Gap 15.8 (5-19); Aspartate Amino Transferase 44 U/L (0-40); Blood Urea Nitrogen 17 mg/dL (6-20); Calcium 8.7 mg/dL (8.5-10.5); Carbon Dioxide 23 mmol/L (22-29); Chloride 98 mmol/L (98-107); Globulin 3.1 g/dL (1.3-4.6); Glomerular Filtration Rate 50.8 mL/min (90-130); Glucose 208 mg/dL (65-115); Osmolality Calculated 284 mOsm/kg (285-295); Potassium 3.8 mmol/L (3.5-5.1); Sodium 133 mmol/L (136-145); Total Bilirubin 0.6 mg/dL (0.15-1.2); Total Protein 6.8 g/dL (6.6-8.7)
--- NOTE | 2021-01-22 14:24 | CTR_ITS ---
PROCEDURE INFORMATION: Exam: CTA Chest With Contrast Exam date and time: 01/22/2021 3:04 PM Age: 45 years old Clinical indication: Other: Decreased o2 sat; Prior surgery; Surgery date: 3-7 days post-operative; Surgery type: C upper t spine surgery Monday; Additional info: Hypoxia, post surgery. Pe TECHNIQUE: Imaging protocol: Computed tomographic angiography of the chest with contrast. 3D rendering (Not supervised by radiologist): MIP and/or 3D reconstructed images were created by the technologist. Radiation optimization: All CT scans at this facility use at least one of these dose optimization techniques: automated exposure control; mA and/or kV adjustment per patient size (includes targeted exams where dose is matched to clinical indication); or iterative reconstruction. Contrast material: VISI; Contrast volume: 81 ml; Contrast route: INTRAVENOUS (IV); COMPARISON: CR XR chest 1V portable [id number] 01/22/2021 2:01 PM RADIATION DOSE METRICS: Total DLP (mGy-cm): 478.6 FINDINGS: Pulmonary arteries: No evidence of pulmonary artery emboli. 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 No evidence of thoracic aortic aneurysm or dissection. 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 This passes posterior to the esophagus and trachea to reach the left subclavian region. This causes moderate posterior compression of the trachea Lungs: There is a calcified granuloma at the right lung base. No consolidation. Poor inspiratory volume. Pleural spaces: Unremarkable. No pneumothorax. No pleural effusion. Heart: There is borderline cardiomegaly. Mediastinal space: There is a small hiatal hernia. Lymph nodes: Unremarkable. No enlarged lymph nodes. Bones/joints: There is a posterior surgical fusion extending from T2 into the cervical spine beyond the field of view. No fracture. Soft tissues: Unremarkable. Other findings: There is mild pulmonary vascular congestion. CT/CT angio chest PE protcl [id number] IMPRESSION: 1. No evidence of pulmonary artery emboli. 2. Borderline cardiomegaly and central pulmonary vascular congestion. 3. Right sided aortic arch. 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 Radiation Dose CTDIVOL = (mGy): DLP = 478.6 (mGy-cm)
--- NOTE | 2021-01-22 14:34 | W.ED.GENADLT ---
HPI - General Adult General: Chief complaint: General Medical Stated complaint: neck/back surgery on mon, stitches coming apart Time Seen by Provider: 01/22/21 13:05 Source: patient and family History of Present Illness: HPI narrative: Patient presents with bleeding from his surgical site from fusion of his neck with a posterior approach from Dr. Mitchell yesterday. He has been oozing clear to bloody type drainage on the lower portion of the wound. He is also been having some uncontrolled pain. Per and very talkative patient with a left ear after surgery yesterday they went home he went and reached for something and he felt a pop and they think they popped open some of his stitches so they called the surgeon who told him to go the nearest hospital they went to [place] who gave him some Dilaudid and felt that his wound had dehisced a little bit and they flew him to [facility], he was seen in the emergency department and admitted and says they gave him some fluids and thought maybe he had an infection so they gave him some antibiotics. She said he was in a lot of pain they did give him a little bit of Dilaudid but they were not happy with her care and felt that they were very rude and so they left there today AGAINST MEDICAL ADVICE and that at that time as well he also had some lower oxygen. But they called the surgeon who directed them here to [facility] to be evaluated. He was seen there is reporting that when the patient falls asleep he seems to almost stop breathing and/or gasping for air which she noticed today and some last night. She is also stating that she locks up his pain medication but that he has been getting oxycodone every 3-[address] Mitchell was here in the emergency department to meet the patient regarding the wound. As of note however where his vital signs that he initially had a 92% sat but he is tachycardic and while he is in the room his O2 sats were in the 80s he continues to be talkative however does appear a little short of breath he denies any chest pain Severity: mild Associated symptoms: Reports malaise Review of Systems Narrative: General: denies fatigue, fever or chills HEENT: denies ear pain, denies nasal congestion, denies vision changes, denies sore throat Neck: denies masses or pain Resp: denies cough, denies shortness of breath, denies pleuritic pain, complains that he seems to gasp for air while sleeping and this is all new since the surgery Cardio: denies chest pain, denies edema GI: denies abdominal pain, denies N/V/D, denies black/tarry or bloody stools : denies hematuria, denies dysuria Neuro: denies headache, denies dizziness, denies motor or sensory changes Musculoskeletal: denies pain, denies swelling, post neck wound with some seriousanguinous type drainaige, no odor Skin: denies rashes Psych: denies SI or HI Endocrine: denies thyroid symptoms, denies lymphadenopathy all over ROS reviewed and patient denies Const: Reports: malaise PFSH ED PFSH: Medical History (Updated 01/22/21 @ 22:29 by Archie Espinosa MD) ADD (attention deficit disorder) Angina decubitus Asthma Carpal tunnel syndrome Chest pain Chronic pain syndrome GERD (gastroesophageal reflux disease) Hematuria History of hepatitis Hyperlipidemia Hypertension Irritable bowel syndrome Peptic ulcer disease Pneumothorax Seasonal allergies Staphylococcal infection of skin Tobacco use Type 2 diabetes mellitus Surgical History (Updated 01/22/21 @ 21:57 by Archie Espinosa MD) H/O chest tube placement H/O neck surgery H/O wrist surgery R History of back surgery History of carpal tunnel surgery L Family History Family/Other No problems noted. Other Adopted Social History Smoking and tobacco status: current some day smoker cigarettes Packs smoked per day: 0 [ Other cigarette details: Says has been cutting down ] and smokeless tobacco Quit status (tobacco): considering quitting Second hand smoke exposure: Yes Smoking risk assessment/counseling performed?: No Alcohol intake: former Desire information about alcohol rehabilitation?: No Substance/Drug Use: former Date of last use: Former occasional marijuana. Currently occ CBD oil. Lives independently: Yes Household members: spouse Marital status: Current occupational status: unemployed History of recent travel: No Current gender identity: Male Physical Exam Narrative: EXAM NARRATIVE: General: a/o/3, no distress, very talkative, and moving around a lot Head: atraumatic HEENT: normal eyes, normal conjunctiva, normal hearing, normal external nose, normal mouth, mucous membranes moist Neck: FROM, trachea midline Chest: normal expansion, no gross deformities Resp: normal speech, no retractions, no accessory muscle use, CTA bilaterally Cardio: regular rate and rhythm and no murmur, no peripheral edema, normal peripheral pulses GI: soft, flat non tender, no guarding normal BS : deferred Musculoskeletal: FROM, no pain or gross deformities Neuro: a/o appropriate for age, no gross motor or sensory deficits, CN II-XII grossly intact, normal coordination, normal speech Skin: no rashes, posterior skin incision with distal seepage but no purulence, rest of wound is intact Psych: cooperative, normal mood and effect Course Vital Signs: Vital signs: Vital Signs Temperature 98.6 F 01/23/21 04:00 Pulse Rate 116 H 01/23/21 06:00 Respiratory Rate 21 H 01/23/21 05:46 Blood Pressure 97/65 01/23/21 04:00 Pulse Oximetry 100 01/23/21 04:00 MDM - General Adult MDM Narrative: Medical decision making narrative: Dr. Mitchell from orthopedics looked at the patient's wound and put in a few more inocencia. But what the concern was is why we are doing that patient has pulse ox in place and he was running in the 80s with a good waveform however then we finally got him into bed and were monitoring him and thought get as high as the low 90s patient is extremely talkative does not appear to be any distress I left him on room air to get an ABG which does show a PO2 of 49 and a pulse ox of 84% he was placed on oxygen nasal cannula. We will have to check a CT of his chest. There was some concern could be overmedicated from the 2 doses of pain meds that he had one yesterday at [place] and one today at [facility] but says she has been giving him his oxycodone and they are locked up he did fall asleep during CAT scan however there when I see him he is very talkative he did Narcan him if he has been having this much pain with his neck pain will obtain a CT of his chest to rule out PE When he can get the patient to sit still and get accurate vital signs his last vital signs have improved he is now 90% on 2 L his blood pressure is 133/77 and his pulse is 110 patient says he wanted to try to go home so I removed his nasal cannula turned it off it took probably 5 minutes but he did eventually drop in the 80s. He has no stridor his CT scan was noted however technology infusion specialist said he fell asleep during the CAT scan and did not take any type of deep breaths or cooperate with the coordination with the contrast. Again when you go to talk to the patient is very talkative he says he is just exhausted he does anyone complain of feeling shortness of breath. He does feel that his medications are not working and that they are all messed up I spoke with his surgeon who says he has been on chronic pain medication and muscle relaxers for some time and he too felt that he was probably overmedicated when he saw him. We discussed the high white count Dr. Mitchell feels this is all postsurgical and that he does not feel he would get an infection within 1 day of surgery and is not having any new neurological symptoms and denies having any significant changes in pain although he is only 1 day postop. Spoke with the admitting physician Dr Kelly will see the patient in the emergency room. Patient and family are agreeable to be admitted overnight otherwise I said they would need to sign out AMA and they are agreeable to this plan I do not feel he needs acute antibiotics at this time either does Dr Mitchell and that WBC could be postsurgical but agrees with admission and monitoring WBc and status. They can monitor him over the weekend and see if he develops fevers and/or if his white count changes in and on fashionable manner Medical Records: Attestation: I reviewed the patient's medical records. Lab Data: Labs: Lab Results 01/22/21 01/22/21 01/22/21 Range/Units 13:55 13:55 13:55 WBC 24.7 H (4.0-10.0) 10^3/ uL RBC 3.79 L (4.1-5.3) 10^6/u L Hgb 10.5 L (11.7-16.6) g/dL Hct 34.8 L (42.0-52.0) % MCV 91.8 (80-94) fL MCH 27.7 L (28.0-34.0) pg MCHC 30.2 (30.0-36.0) g/dL RDW 13.9 (12.1-15.1) % Plt Count 178 (130-400) 10^3/c mm MPV 10.7 H (7.4-10.4) fL Neut % (Auto) 81.8 % Lymph % (Auto) 7.1 % Bullock % (Auto) 10.1 % Eos % (Auto) 0.0 % Baso % (Auto) 0.4 % Neut # (Auto) 20.17 H (1.8-7.7) 10^3/u L Lymph # (Auto) 1.7 (0.8-4.8) 10^3/u L Bullock # (Auto) 2.5 H (0.2-0.9) 10^3/u L Eos # (Auto) 0.0 (0.0-0.8) 10^3/u L Baso # (Auto) 0.1 (0.0-0.1) 10^3/u L Nucleated RBC % (a uto) 0 % Nucleated RBCs # 0.0 /100WBC Specimen Type Sample Site ABG pH (7.35-7.45) ABG pCO2 (35-45) mmHg ABG pO2 (80.0-100.0) mmH g ABG HCO3 (22-26) mmol/L ABG Base Excess (-2.0-2.0) mmol/ L Jatinder Test Hematocrit (42-52) % O2 Delivery Device FiO2 % Ring Spinner ID Sodium 133 L (136-145) mmol/L Potassium 3.8 (3.5-5.1) mmol/L Chloride 98 (98-107) mmol/L Carbon Dioxide 23 (22-29) mmol/L Anion Gap 15.8 (5-19) BUN 17 (6-20) mg/dL Creatinine 1.5 H (0.7-1.2) mg/dL GFR Calculation 50.8 L (90-130) mL/min Glucose 208 H (65-115) mg/dL Calculated Osmolal ity 284 L (285-295) mOsm/k g Lactate (0.5-2.2) mmol/L Calcium 8.7 (8.5-10.5) mg/dL Total Bilirubin 0.6 (0.15-1.2) mg/dL AST 44 H (0-40) U/L ALT 22 (0-41) U/L Alkaline Phosphata se 67 (40-130) IU/L Troponin T Baselin e 31 H (0-15) ng/L Troponin T Hi Sens 6Hr (0-15) ng/L Troponin T Hi Sens 6Hr Delta (0-12) ng/L Total Protein 6.8 (6.6-8.7) g/dL Albumin 3.7 (3.5-5.2) g/dL Globulin 3.1 (1.3-4.6) g/dL Urine Opiates Scre en (Negative) ng/mL Ur Barbiturates Sc reen (Negative) ng/mL Ur Phencyclidine S crn (Negative) ng/mL Ur Amphetamines Sc reen (Negative) ng/mL U Benzodiazepines Scrn (Negative) ng/mL Urine Cocaine Scre en (Negative) ng/mL U Marijuana (THC) Screen (Negative) ng/mL 01/22/21 01/22/21 01/22/21 Range/Units 13:55 14:09 14:25 WBC (4.0-10.0) 10^3/ uL RBC (4.1-5.3) 10^6/u L Hgb (11.7-16.6) g/dL Hct (42.0-52.0) % MCV (80-94) fL MCH (28.0-34.0) pg MCHC (30.0-36.0) g/dL RDW (12.1-15.1) % Plt Count (130-400) 10^3/c mm MPV (7.4-10.4) fL Neut % (Auto) % Lymph % (Auto) % Bullock % (Auto) % Eos % (Auto) % Baso % (Auto) % Neut # (Auto) (1.8-7.7) 10^3/u L Lymph # (Auto) (0.8-4.8) 10^3/u L Bullock # (Auto) (0.2-0.9) 10^3/u L Eos # (Auto) (0.0-0.8) 10^3/u L Baso # (Auto) (0.0-0.1) 10^3/u L Nucleated RBC % (a uto) % Nucleated RBCs # /100WBC Specimen Type Arterial Sample Site Brachial, right ABG pH 7.29 L (7.35-7.45) ABG pCO2 48.3 H (35-45) mmHg ABG pO2 49.3 L (80.0-100.0) mmH g ABG HCO3 23.4 (22-26) mmol/L ABG Base Excess -3.3 L (-2.0-2.0) mmol/ L Jatinder Test N/a Hematocrit 32.4 L (42-52) % O2 Delivery Device Room air FiO2 21.0 % Ring Spinner ID Amh Sodium (136-145) mmol/L Potassium (3.5-5.1) mmol/L Chloride (98-107) mmol/L Carbon Dioxide (22-29) mmol/L Anion Gap (5-19) BUN (6-20) mg/dL Creatinine (0.7-1.2) mg/dL GFR Calculation (90-130) mL/min Glucose (65-115) mg/dL Calculated Osmolal ity (285-295) mOsm/k g Lactate 1.5 (0.5-2.2) mmol/L Calcium (8.5-10.5) mg/dL Total Bilirubin (0.15-1.2) mg/dL AST (0-40) U/L ALT (0-41) U/L Alkaline Phosphata se (40-130) IU/L Troponin T Baselin e (0-15) ng/L Troponin T Hi Sens 6Hr (0-15) ng/L Troponin T Hi Sens 6Hr Delta (0-12) ng/L Total Protein (6.6-8.7) g/dL Albumin (3.5-5.2) g/dL Globulin (1.3-4.6) g/dL Urine Opiates Scre en Positive H (Negative) ng/mL Ur Barbiturates Sc reen Negative (Negative) ng/mL Ur Phencyclidine S crn Negative (Negative) ng/mL Ur Amphetamines Sc reen Negative (Negative) ng/mL U Benzodiazepines Scrn Negative (Negative) ng/mL Urine Cocaine Scre en Negative (Negative) ng/mL U Marijuana (THC) Screen Negative (Negative) ng/mL 01/22/21 Range/Units 16:00 WBC (4.0-10.0) 10^3/ uL RBC (4.1-5.3) 10^6/u L Hgb (11.7-16.6) g/dL Hct (42.0-52.0) % MCV (80-94) fL MCH (28.0-34.0) pg MCHC (30.0-36.0) g/dL RDW (12.1-15.1) % Plt Count (130-400) 10^3/c mm MPV (7.4-10.4) fL Neut % (Auto) % Lymph % (Auto) % Bullock % (Auto) % Eos % (Auto) % Baso % (Auto) % Neut # (Auto) (1.8-7.7) 10^3/u L Lymph # (Auto) (0.8-4.8) 10^3/u L Bullock # (Auto) (0.2-0.9) 10^3/u L Eos # (Auto) (0.0-0.8) 10^3/u L Baso # (Auto) (0.0-0.1) 10^3/u L Nucleated RBC % (a uto) % Nucleated RBCs # /100WBC Specimen Type Sample Site ABG pH (7.35-7.45) ABG pCO2 (35-45) mmHg ABG pO2 (80.0-100.0) mmH g ABG HCO3 (22-26) mmol/L ABG Base Excess (-2.0-2.0) mmol/ L Jatinder Test Hematocrit (42-52) % O2 Delivery Device FiO2 % Ring Spinner ID Sodium (136-145) mmol/L Potassium (3.5-5.1) mmol/L Chloride (98-107) mmol/L Carbon Dioxide (22-29) mmol/L Anion Gap (5-19) BUN (6-20) mg/dL Creatinine (0.7-1.2) mg/dL GFR Calculation (90-130) mL/min Glucose (65-115) mg/dL Calculated Osmolal ity (285-295) mOsm/k g Lactate (0.5-2.2) mmol/L Calcium (8.5-10.5) mg/dL Total Bilirubin (0.15-1.2) mg/dL AST (0-40) U/L ALT (0-41) U/L Alkaline Phosphata se (40-130) IU/L Troponin T Baselin e (0-15) ng/L Troponin T Hi Sens 6Hr 25.97 H (0-15) ng/L Troponin T Hi Sens 6Hr Delta -5.03 L (0-12) ng/L Total Protein (6.6-8.7) g/dL Albumin (3.5-5.2) g/dL Globulin (1.3-4.6) g/dL Urine Opiates Scre en (Negative) ng/mL Ur Barbiturates Sc reen (Negative) ng/mL Ur Phencyclidine S crn (Negative) ng/mL Ur Amphetamines Sc reen (Negative) ng/mL U Benzodiazepines Scrn (Negative) ng/mL Urine Cocaine Scre en (Negative) ng/mL U Marijuana (THC) Screen (Negative) ng/mL Discharge Plan Discharge Patient Disposition: Admitted As Inpatient Admit Provider: Archie Espinosa Clinical Impression: Hypoxia Postoperative external wound disruption Qualifiers: Encounter type: initial encounter Qualified Code(s): T81.31XA - Disruption of external operation (surgical) wound, not elsewhere classified, initial encounter Condition: Stable Coding Level of Care Code ED Linux Administrator for Marcos Scott
[2021-01-22 15:06] LABS: Amphetamines Screen Urine Negative (Negative); Barbiturates Screen Urine Negative (Negative); Benzodiazepines Screen Urine Negative (Negative); Cocaine Screen Urine Negative (Negative); Opiate Screen Urine Positive (Negative); PCP Screen Urine Negative (Negative); THC Screen Urine Negative (Negative)
[2021-01-22] MEDS: iodixanol 320 mg/mL 100mL Btl IV (15:16)
[2021-01-22 15:30] LABS: Troponin(5th) Baseline 31 ng/L (0-15)
--- NOTE | 2021-01-22 16:32 | ECG_ITS ---
[facility] Test Date: 2021-01-22 Pat Name: Chris Junior Department: Room: Gender: Male Deck Scaler: : 1975 Requested By: Zeinab Bustamante Order Number: [id number] Lit MD: Luis Felipe Feldman M.D. Measurements Intervals [place] Rate: 99 P: 27 MN: 159 QRS: 49 QRSD: 97 T: -5 QT: 311 QTc: 401 Interpretive Statements SINUS RHYTHM WITH OCCASIONAL VENTRICULAR PREMATURE COMPLEXES NONSPECIFIC T-WAVE ABNORMALITY Compared to ECG 01/22/2021 14:50:46 Ventricular premature complex(es) now present T-wave abnormality now present Sinus tachycardia no longer present Electronically Signed On 01-22-2021 18:35:50 CDT by Luis Felipe Feldman M.D. [id number]
[2021-01-22 16:35] LABS: Troponin 5 6HR 25.97 ng/L (0-15)
[2021-01-22 16:37] LABS: Troponin 5 6HR Delta -5.03 ng/L (0-12)
[2021-01-22 19:47] LABS: Troponin 5 2HR 22.12 ng/L (0-15)
[2021-01-22 20:33] LABS: Lactate (Lactic Acid level) 1.5 mmol/L (0.5-2.2)
--- NOTE | 2021-01-22 21:21 | PM.HP ---
Providers/Chief Complaint Admitting Physician: Archie Espinosa Primary Care Provider: MIKEY Lucero Chief Complaint: neck/back surgery on mon, stitches coming apart History of Present Illness 45-year-old gentleman with history of asthma, history of collapsed lung, history of prior neck surgery, DDD, CSI injection into the upper back 3-4 weeks ago, GERD, hepatitis, HLD, HTN, DM2, staphylococcal infection, current smoker, and had an uneventful C2-T2 posterior spinal fusion on 01/20. Reportedly after surgery he had bent down and tried to lift a heavy object against instructions leading to wound dehiscence, with rupture of several sutures at the inferior portion of the wound. He continued bleeding from the wound. He also was feeling hot, lightheaded, weak, and does not have much recollection from that time. They had called his surgeon, and he asked him to proceed to the nearest ER. His states he was rather lethargic. She had brought him to ER at [facility] They had waited a short time, but felt it was too busy, and left before being seen by a physician. Went over to [place] [facility]. From there due to concern of infection they were urgently transferred over to [facility] for additional assessment and treatment. Additional suture was placed to control the bleeding. Sounds like he had not had a fever at any point ( states highest temp 99.1). Had leukocytosis of 20,000. CT scan of the neck showed small amount of air in the wound of unclear etiology, possibly postsurgical. He was receiving cefepime and vancomycin while admitted in the hospital. COVID-19 was negative on 01/15, and was negative at [facility]. Blood cultures were drawn, preliminary cultures negative, final pending. He reports was receiving Dilaudid and Toradol for pain control. He states he felt the pain medications were making him feel unwell, and decided to leave the hospital AMA. He and his report that as of yesterday bleeding had transitioned to leakage of clear yellowish, serous to serosanguineous fluid intermittently draining from the wound. He states continued to be bothered by pain in his neck, some muscle cramps in his back. Had not had a defined headache. Due to continued drainage from the wound and pain he and his decided to come back for reevaluation to ER. In the ER he was noted to have new hypoxia, O2 sats on room air in the 80s requiring initially 5 L of oxygen by nasal cannula. With sinus tachycardia, 120s initially, subsequently 104-108. Blood pressure variable, initially 125/85, then as low as 89/72, subsequently spontaneously improving 133/77, 119/111. Leukocytosis 24.7, predominantly neutrophilic. Sodium 133. Creatinine 1.5, with creatinine 1.1 on 01/15. Blood glucose 208. AST 44. Baseline troponin 31, 2-hour troponin 22.12. Urine drug screen positive for opiates and otherwise negative. ABG 7.29/48.3/49.3. Chest x-ray unremarkable. CT angiogram of the chest without evidence of PE. Borderline cardiomegaly and central pulmonary vascular congestion. Right-sided aortic arch. 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 Dr Mitchell was called in the ER, evaluated his wound, not finding appearance of infection clinically, and reinforced the wound with inocencia. Observation is requested due to hypoxia. Review of Systems Const: Reports: fatigue, malaise and other (Has been unable to sleep at night. Tired during the day.); Denies: fever(s), chills or body aches Eyes: Denies: change in vision or eye redness ENMT: Denies: throat pain, oral sores or ear or mastoid pain Card: Denies: chest pain, edema, pre-syncope or dyspnea on exertion Resp: Denies: dyspnea, productive cough, change in phlegm color or hemoptysis GI: Denies: abdominal pain, nausea, vomiting, diarrhea, constipation, hematochezia or melena : Denies: flank pain, difficulty urinating, urinary frequency or hematuria Musc: Reports: neck pain and muscle cramps (Lower back); Denies: joint swelling or joint redness Skin/Breast: Reports: other (Neck surgical wound dehiscence as above.); Denies: rash, sores or new lesions Neuro: Denies: headache(s), numbness in extremities, weakness in extremities, dizziness, confusion or seizure-like activity Endo: Denies: polyuria or polydipsia Nba/Lymph: Denies: easy bleeding or purpura All/Imm: Denies: urticaria, throat swelling or tongue swelling Medications/Allergies Home Medications Medication Instructions Recorded Confirmed Last Taken Type albuterol sulfate 90 mcg/actuation 1 - 2 puff INHALATION Q6H PRN 30 03/30/20 01/22/21 01/04/21 Rx aerosol inhaler Days #18 gm dicyclomine 10 mg capsule 10 mg PO QID PRN 30 Days #60 cap 10/12/20 01/22/21 01/21/21 Rx topiramate 50 mg tablet 50 mg PO BID #60 tab 10/21/20 01/22/21 01/21/21 Rx Bone Stimulator [id number] #1 ea 12/23/20 01/22/21 Unknown Rx quetiapine 25 mg tablet 100 mg PO QPM tab 12/23/20 01/22/21 01/21/21 History Lantus Solostar U-100 Insulin 30 unit SUBCUT BEDTIME 01/06/21 01/22/21 01/21/21 History metoprolol succinate 50 mg PO QAM 01/06/21 01/22/21 01/21/21 History cyclobenzaprine 10 mg PO TID PRN 01/15/21 01/22/21 01/21/21 History ondansetron HCl 4 mg tablet 4 mg PO Q6H PRN #30 tab 01/15/21 01/22/21 01/19/21 Rx tizanidine [Zanaflex] 4 mg PO Q8H PRN 01/15/21 01/22/21 01/20/21 History oxycodone 10 mg PO Q4H PRN 7 Days #60 tab 01/21/21 01/22/21 01/21/21 Rx Farxiga 10 mg PO QAM 01/22/21 01/22/21 01/21/21 History gabapentin 300 mg PO TID 01/22/21 01/22/21 01/21/21 History metformin 500 mg PO QAM 01/22/21 01/22/21 01/21/21 History omeprazole 20 mg PO BID 01/22/21 01/22/21 01/21/21 History sumatriptan succinate 50 mg PO PRN 01/22/21 01/22/21 Unknown History vilazodone [Viibryd] 40 mg PO QAM 01/22/21 01/22/21 01/21/21 History Allergies Allergy/AdvReac Type Severity Reaction Status Date / Time adhesive tape Allergy Severe rash Verified 01/22/21 14:49 Sulfa (Sulfonamide Allergy Severe unknown Verified 01/22/21 14:49 Antibiotics) tramadol Allergy Severe itch Verified 01/22/21 14:49 acetaminophen [From Tylenol] AdvReac Severe ALGY-Swell Verified 01/22/21 14:49 Lip/Tongue/Throat PFSH Acute PFSH: Medical History (Updated 01/22/21 @ 22:29 by Archie Espinosa MD) ADD (attention deficit disorder) Angina decubitus Asthma Carpal tunnel syndrome Chest pain Chronic pain syndrome GERD (gastroesophageal reflux disease) Hematuria History of hepatitis Hyperlipidemia Hypertension Irritable bowel syndrome Peptic ulcer disease Pneumothorax Seasonal allergies Staphylococcal infection of skin Tobacco use Type 2 diabetes mellitus Surgical History (Updated 01/22/21 @ 21:57 by Archie Espinosa MD) H/O chest tube placement H/O neck surgery H/O wrist surgery R History of back surgery History of carpal tunnel surgery L Family History Family/Other No problems noted. Other Adopted Social History Smoking and tobacco status: current some day smoker cigarettes Packs smoked per day: 0 [ Other cigarette details: Says has been cutting down ] and smokeless tobacco Quit status (tobacco): considering quitting Second hand smoke exposure: Yes Smoking risk assessment/counseling performed?: No Alcohol intake: former Desire information about alcohol rehabilitation?: No Substance/Drug Use: former Date of last use: Former occasional marijuana. Currently occ CBD oil. Lives independently: Yes Household members: spouse Marital status: Current occupational status: unemployed History of recent travel: No Current gender identity: Male Vitals/I&O/Wt Last Vital Signs Temp 97.1 F L 01/22/21 13:33 Pulse 108 H 01/22/21 20:30 Resp 20 H 01/22/21 20:30 BP 135/79 01/22/21 20:30 Pulse Ox 92 01/22/21 20:30 Weight last 48 hrs Weight 82.463 kg Physical Exam Narrative: EXAM NARRATIVE: Accompanied by his at bedside. Const: COMMON NORMALS: patient oriented x3 GENERAL APPEARANCE: anxious OTHER: Bothered by pain in his neck. Back spasm. Constantly repositioning in bed. Pillow with multiple stains with serosanguineous fluid. HENMT: COMMON NORMALS: oropharynx normal Neck/C-Spine: COMMON NORMALS: no JVD Resp: COMMON NORMALS: normal respiratory effort and clear to auscultation bilaterally AUSCULTATION: clear to auscultation bilaterally Cardio: COMMON NORMALS: no JVD, regular rhythm, S1 normal heart sound present, S2 normal heart sound present and No murmurs present (Cardio) RATE: tachycardic RHYTHM: regular rhythm HEART SOUNDS: S1 normal heart sound present and S2 normal heart sound present GI: COMMON NORMALS: Normal to inspection, nondistended, normoactive bowel sounds present, Soft to palpation and non-tender PALPATION: Yes Soft to palpation Extremity: COMMON NORMALS: no joint enlargement and no pedal edema OTHER: Small bruise on medial lateral aspect of the left foot Neuro: COMMON NORMALS: patient oriented x3 and moves all extremities Skin: COMMON NORMALS: no rashes or lesions noted GENERAL SKIN EXAM: other LESIONS: other (No splinter hemorrhages. No Osler's nodes.) WOUNDS: Yes wounds noted (Surgical wound posterior neck, occasional slow SS DC) without odor, sutures and inocencia; without any surrounding erythema OTHER: Tattoos Data : 01/22/21 13:55 01/22/21 13:55 A&P Assessment and plan (1) Wound dehiscence: Wound dehiscence on 01/21 shortly after discharge after cervical fusion 01/20. Initially with bleeding. Yesterday changed to light clear yellow serous to serosanguineous fluid. On CT [place] some air noted within soft tissues of the neck, possibly iatrogenic. Was being treated with cefepime, vancomycin. Assessed here in the ER. Clinically wound reported not showing infection, and appears without surrounding erythema. No purulence. Reinforced with inocencia in ER. Intermittent serous-serosanguineous fluid drainage discussed with patient and family. They were told this is likely serous fluid/draining seroma following bleeding and wound reinforcement. Discussed with them low chance of CSF leak. We will test fluid for beta-2 transferrin. Neck pain, leukocytosis related to surgery, however, discussed with him low possibility of underlying infection. Sinus tachycardia may be secondary to missed metoprolol dose, or other medication with polypharmacy. We discussed differential diagnosis of partially treated CUSTOMER RETENTION REPRESENTATIVE infection. Discussed alternative of more aggressive approach with additional diagnostic testing including lumbar puncture and empiric antibiotic coverage for possibility of infection. Given he has had no headache, fever, and alternative explanations as to the drainage seems more likely, neck pain, leukocytosis are currently considered postsurgical. The other option would be to monitor without antibiotic, obtain additional blood culture, follow-up culture from [place], obtain full documentation, and escalate care in case of any persistence of signs that may indicate presence of a partially treated infection. Discussing with orthopedics and patient and family this is the consensus solution preferred at the moment. ER physician is able to perform lumbar puncture in case it becomes needed. Per orthopedic request due to additional sutures, antibiotic coverage to be provided empirically to prevent skin infection with doxycycline (due to history of staphylococcal infection reported per patient, unknown history of MRSA). Obtain MRSA nasal PCR. Continue pain control. Monitor. As discussed with patient and family he understands we will monitor him at least through the weekend to exclude deterioration in his condition, with low threshold for selection of therapy and as discussed with orthopedics with lumbar puncture, or even wound reexploration on the table in case of any clinical deterioration. Both patient and his are agreeable with this plan. Status: Acute (2) S/P cervical spinal fusion: 01/20 Status: Acute (3) Sinus tachycardia: As above Status: Acute (4) Neutrophilic leukocytosis: As above Status: Acute (5) Respiratory acidosis: Discussed with patient and his , this appears to be multifactorial secondary to combination of intermittent hypoxemia due to alert appears to be exhaustion due to being unable to sleep for several nights, pulmonary vascular congestion, intermittent opioid and tracheal compression. Monitor currently in ICU to start. Cautious pain control. Avoid hyperoxia. Monitor for need of BiPAP therapy. Narcan only in case of respiratory depression. Currently awake, alert, talking. Would benefit from PFT on outpatient basis. Status: Acute (6) Hypoxia: New onset hypoxia. Unclear etiology. No pneumonia, PE on imaging. Cardiomegaly, which he reports is known. Pulmonary vascular congestion is present. Suspect there is some component of fluid overload, possibly after fluid administration, infusions during recent hospitalization. Blood pressure soft in ER, acute kidney injury, hold of on diuresis for now as oxygenation appears stabilized. She reports history of asthma for which he uses occasional inhaler. Reports history of intermittent wheeze as well as long history of respiratory difficulty during playing sports. Appears hypoxia is multifactorial secondary pulmonary vascular congestion, tracheal compression, possibly occasional hypopnea. Would benefit from PFT after discharge. Low probability of COVID-19 given he was tested presurgically, and with reported negative test during hospitalization at [facility] yesterday. Status: Acute (7) Acute kidney injury superimposed on CKD: Possibly secondary to Toradol which she reports was receiving for pain control. Avoid NSAIDs. reports he has stage III kidney disease. We will avoid fluid challenge at this time as appears to be fluid overloaded with pulmonary vascular congestion, possibly after receiving IV fluids, infusions during the recent hospitalization. Monitor urine output, renal function after also received contrast with CTA. Status: Acute (8) Troponin level elevated: Baseline 31, 2-hour 22.12, 6-hour 25.97. Denies chest pain. EKG with sinus tachycardia. Does not appear to have acute NM at this time. Suspect this is demand ischemia related, however, may be in the setting of underlying coronary disease, and he will benefit from all risks education at some point when he has recovered somewhat. Status: Acute (9) Hyponatremia: Mild hyponatremia, monitor. Avoid sodium restriction. 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 As above. This is likely chronic, but appears to be contributing to his acute issues. Discussed with patient and his . Status: Acute (11) Right-sided aortic arch present on imaging: Status: Acute Additional A&P Information Transient hypotension in ER: Blood pressure appears to improve spontaneously. Not clear that this was a real blood pressure per discussion with ER physician. Monitor. Diabetes Asthma GERD History of hepatitis HTN HLD Current smoker Other chronic conditions noted Attestations Medical Necessity Statement*: Admission of over 2 midnights or greater needed versus management of wound dehiscence, drainage after bleeding persistent over several episodes of care, with leukocytosis, sinus tachycardia, new hypoxia, respiratory acidosis, acute kidney injury, troponin elevation in a gentleman with multiple comorbidities at elevated risk of life-threatening deterioration in his condition, and status post recent neck surgery. Coding Level of Care Code Acute Chief Meter Reader for Marcos Scott Diagnoses Wound dehiscence T81.30XA S/P cervical spinal fusion Z98.1 Sinus tachycardia R00.0 Neutrophilic leukocytosis D72.9 Respiratory acidosis E87.2 Hypoxia R09.02 Acute kidney injury superimposed on CKD N17.9; N18.9 Troponin level elevated R77.8 Hyponatremia E87.1 Compression of trachea J39.8 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
[2021-01-22] MEDS: gabapentin 300 mg Capsule PO (21:32)
[2021-01-22] MEDS: doxycycline 100 mg Tablet PO (21:32)
[2021-01-22] MEDS: oxyCODONE 5 mg IR Tab/Cap 10 MG PO (21:32)
[2021-01-22] MEDS: insulin glargine 100 units/1 mL 20 UNIT SUBCUT (21:44)
--- NOTE | 2021-01-22 21:46 | PC.NURSE ---
First dose of insulin given per doctor request. Was ordered to start tomorrow night per MD but wanted it given tonight.
[2021-01-22 21:52] LABS: Glucose Point of Care 107 mg/dL (70-110)
[2021-01-23] VITALS (39 sets, daily range): BP systolic 97–131; BP diastolic 61–90; PULSE 103–140; RESP 11–35; TEMP 36.9–37.5; O2SAT 87–100
[2021-01-23] MEDS: cyclobenzaprine 10 mg Tablet PO ×3 (00:24→14:24)
[2021-01-23] MEDS: oxyCODONE 5 mg IR Tab/Cap 10 MG PO ×4 (01:41→14:24)
[2021-01-23 05:20] LABS: Basophils # 0.1 10^3/uL (0.0-0.1); Basophils % 0.4 %; Eosinophils # 0.1 10^3/uL (0.0-0.8); Eosinophils % 0.4 %; Hematocrit 34.7 % (42.0-52.0); Hemoglobin 10.4 g/dL (11.7-16.6); Lymphocytes % 11.5 %; Mean Corpuscular Hemoglobin 27.2 pg (28.0-34.0); Mean Corpuscular Volume 90.8 fL (80-94); Mean Platelet Volume 10.7 fL (7.4-10.4); Monocytes # 1.7 10^3/uL (0.2-0.9); Monocytes % 9.7 %; Neutrophils # 13.23 10^3/uL (1.8-7.7); Neutrophils % 77.5 %; Nucleated Red Blood Cells % 0 %; Platelet Count 186 10^3/cmm (130-400); Red Blood Count 3.82 10^6/uL (4.1-5.3); Red Cell Distribution Width 13.7 % (12.1-15.1); White Blood Count 17.1 10^3/uL (4.0-10.0)
[2021-01-23] MEDS: metoprolol succinate ER (24 HR) 50 mg Tablet 25 MG PO (05:47)
[2021-01-23 05:51] LABS: Alanine Aminotransferase 18 U/L (0-41); Albumin Level 3.6 g/dL (3.5-5.2); Alkaline Phosphatase 69 IU/L (40-130); Anion Gap 12.6 (5-19); Aspartate Amino Transferase 43 U/L (0-40); Blood Urea Nitrogen 14 mg/dL (6-20); Calcium 9.2 mg/dL (8.5-10.5); Carbon Dioxide 26 mmol/L (22-29); Chloride 101 mmol/L (98-107); Globulin 2.9 g/dL (1.3-4.6); Glomerular Filtration Rate 72.7 mL/min (90-130); Glucose 98 mg/dL (65-115); Osmolality Calculated 282 mOsm/kg (285-295); Potassium 3.6 mmol/L (3.5-5.1); Sodium 136 mmol/L (136-145); Total Bilirubin 0.9 mg/dL (0.15-1.2); Total Protein 6.5 g/dL (6.6-8.7)
[2021-01-23] MEDS: doxycycline 100 mg Tablet PO ×2 (08:36→18:22)
[2021-01-23] MEDS: pantoprazole DR 40 mg Tablet PO ×2 (08:36→18:23)
[2021-01-23] MEDS: gabapentin 300 mg Capsule PO ×3 (08:36→21:55)
[2021-01-23] MEDS: topiramate 25 mg Tablet 50 MG PO ×2 (08:36→18:22)
[2021-01-23 08:46] LABS: Glucose Point of Care 84 mg/dL (70-110)
--- NOTE | 2021-01-23 09:13 | PM.PN ---
Subjective Subjective: Interval history: pain relatively controlled Vitals/I&O/Wt Last Vital Signs Temp 98.6 F 01/23/21 04:00 Pulse 121 H 01/23/21 08:43 Resp 16 01/23/21 08:43 BP 97/65 01/23/21 04:00 Pulse Ox 92 01/23/21 08:43 01/22/21 01/23/21 01/23/21 22:59 06:59 14:59 Intake Total 250 / 250 200 / 450 Output Total 400 / 400 700 / 1100 Balance -150 / -150 -500 / -650 Weight last 48 hrs Weight 186 lb 14.4 oz Weight 181 lb 12.8 oz Physical Exam Narrative: EXAM NARRATIVE: wound continues to drain Data : 01/23/21 04:50 01/23/21 04:50 Micro: Microbiology 01/22/21 19:13 Blood Culture - Preliminary Blood SPECIMEN COLLECTED 01/22/21 19:08 Blood Culture - Preliminary Blood SPECIMEN COLLECTED A&P Additional A&P Information wound continues to drain will plan to take to OR monday Attestations Medical Necessity Statement*: needs to stay in hospital until return to OR Coding Level of Care Code Acute Speech Therapy Teacher for Marcos Scott
--- NOTE | 2021-01-23 09:53 | P.PN_ITS ---
Subjective Subjective: Interval history: He was some trouble sleeping overnight, finding comfortable position due to pain. Continues to have drainage from the wound. Vitals/I&O/Wt Last Vital Signs Temp 98.6 F 01/23/21 04:00 Pulse 121 H 01/23/21 08:43 Resp 16 01/23/21 08:43 BP 97/65 01/23/21 04:00 Pulse Ox 92 01/23/21 08:43 01/22/21 01/23/21 01/23/21 22:59 06:59 14:59 Intake Total 250 / 250 200 / 450 Output Total 400 / 400 700 / 1100 Balance -150 / -150 -500 / -650 Weight last 48 hrs Weight 84.776 kg Weight 82.463 kg Physical Exam Const: COMMON NORMALS: patient oriented x3 and alert ORIENTATION/CONSCIOUSNESS: Yes awake OTHER: Bothered by pain in his neck. Back spasm. HENMT: COMMON NORMALS: oropharynx normal Neck/C-Spine: COMMON NORMALS: no JVD Resp: COMMON NORMALS: normal respiratory effort and clear to auscultation bilaterally AUSCULTATION: clear to auscultation bilaterally Cardio: COMMON NORMALS: no JVD, regular rhythm, S1 normal heart sound present, S2 normal heart sound present and No murmurs present (Cardio) RATE: tachycardic RHYTHM: regular rhythm HEART SOUNDS: S1 normal heart sound present and S2 normal heart sound present GI: COMMON NORMALS: Normal to inspection, nondistended, normoactive bowel sounds present, Soft to palpation and non-tender PALPATION: Yes Soft to palpa tion Extremity: COMMON NORMALS: no joint enlargement and no pedal edema OTHER: Small bruise on medial lateral aspect of the left foot Neuro: COMMON NORMALS: patient oriented x3 and moves all extremities SENSORIUM/ORIENTATION: Yes alert Skin: COMMON NORMALS: no rashes or lesions noted GENERAL SKIN EXAM: no rash es or lesions noted and other LESIONS: other (No splinter hemorrhages. No Osler's nodes.) WOUNDS: Yes wounds noted (Surgical wound posterior neck, occasional slow SS DC) without odor, sutures and inocencia; without any surr ounding erythema OTHER: Tattoos Data : 01/23/21 04:50 01/23/21 04:50 Micro: Microbiology 01/22/21 19:13 Blood Culture - Preliminary Blood SPECIMEN COLLECTED 01/22/21 19:08 Blood Culture - Preliminary Blood SPECIMEN COLLECTED A&P Assessment and plan (1) Wound dehiscence: Continue to monitor condition in the hospital. Continue empiric antibiotics after additional sutures. Wound continues to drain. Discussed with orthopedics. Plan is for additional exploration on Monday if drainage not resolving. WBC improving. Follow-up blood cultures. Wound cultures. Follow-up culture results from [facility]. Obtain documentation from hospitalization. Received cefepime and Vanco there. Follow-up beta-2 transferrin. Continue monitoring on medical floor. Continue pain treatment. Lidocaine patch discussed, but appears has allergy to adhesive. Will hold off. MRSA nasal PCR. Continue pain control. Monitor. As discussed with patient and family he understands we will monitor him at least through the weekend to exclude deterioration in his condition, with low threshold for selection of therapy and as discussed with orthopedics with lumbar puncture, or even wound reexploration on the table in case of any clinical deterioration. Both patient and his are agreeable with this plan. Status: Acute (2) S/P cervical spinal fusion: 01/20 Status: Acute (3) Sinus tachycardia: As above Status: Acute (4) Neutrophilic leukocytosis: As above Status: Acute (5) Respiratory acidosis: He is awake, alert. Continue current therapy. Gentle oxygenation support. Avoid hyperoxia. Avoid fluid overload. Multifactorial secondary to combination of intermittent hypoxemia due to lack of sleep, pulmonary vascular congestion, intermittent opioid and tracheal compression. Cautious pain control. Avoid hyperoxia. Monitor for need of BiPAP therapy. Narcan only in case of respiratory depression. Currently awake, alert, talking. Would benefit from PFT on outpatient basis. Status: Acute (6) Hypoxia: Lungs sound good. Continues to require oxygen. Avoid additional fluids. Blood pressures are lower today, perhaps will give small dose diuretic. New onset hypoxia. Unclear etiology. No pneumonia, PE on imaging. Cardiomegaly, which he reports is known. Pulmonary vascular congestion is present. Suspect there is some component of fluid overload, possibly after fluid administration, infusions during recent hospitalization. Blood pressure soft in ER, acute kidney injury, hold of on diuresis for now as oxygenation appears stabilized. She reports history of asthma for which he uses occasional inhaler. Reports history of intermittent wheeze as well as long history of respiratory difficulty during playing sports. Appears hypoxia is multifactorial secondary pulmonary vascular congestion, tracheal compression, possibly occasional hypopnea. Would benefit from PFT after discharge. Low probability of COVID-19 given he was tested presurgically, and with reported negative test during hospitalization at [facility] yesterday. Status: Acute (7) Acute kidney injury superimposed on CKD: Improving. Suspected secondary to Toradol he states was receiving during prior hospitalization. Avoid NSAIDs. Monitor blood pressures. Avoid hypotension. reports he has stage III kidney disease. Avoid fluid challenge at this time as appears to be fluid overloaded with pulmon temi vascular congestion, possibly after receiving IV fluids, infusions during the recent hospitalization. Monitor urine output, renal function after also received contrast with CTA. Status: Acute (8) Troponin level elevated: Baseline 31, 2-hour 22.12, 6-hour 25.97. Denies chest pain. EKG with sinus tachycardia. Does not appear to have acute [place] at this time. Suspect this is demand ischemia related, however, may be in the setting of underlying coronary disease, and he will benefit from all risks education at some point when he has recovered somewhat. Status: Acute (9) Hyponatremia: Resolved. Avoid sodium restriction. 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 As above. This is likely chronic, but appears to be contributing to his acute issues. Discussed with patient and his . 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 Transient hypotension noted in ER. Unclear cause of that, spontaneously improved. May not have been real. This morning slightly soft blood pressure, monitor. Caution with pain medication. Diabetes Asthma GERD History of hepatitis HTN HLD Current smoker Other chronic conditions noted Attestations Medical Necessity Statement*: Continue admission for assessment management of continued drainage from wound dehiscence after bleeding, reinforcement of the wound, following recent neck fusion surgery, requirement for intensive pain control not responsive to outpatient treatment, in the setting of hypoxic, hypercapnic respiratory failure with high risk of respiratory condition deterioration, monitoring for any resurgence of possible partially treated infection, possible additional wound exploration. 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
[2021-01-23] MEDS: ceFAZolin 1,000 MG in sodium chloride 0.9% (plus) 50 ML 100 MG IV ×2 (10:13→18:23)
[2021-01-23 12:00] LABS: Glucose Point of Care 82 mg/dL (70-110)
--- NOTE | 2021-01-23 13:15 | PC.NURSE ---
Dr Espinosa at Bedside at 0800 discussed goals of care with patient and some pain management plans, Surgery came by and is planning on taking patient to the OR on Monday to do some repair work, Patient is having copious amounts of drainage and has had multiple dressing changes in the last 24 hours. Patient transferred to Med surg at 1230, notified, home meds brought in and left at nursing station,
[2021-01-23] MEDS: diphenhydrAMINE 25 mg Capsule PO (16:43)
[2021-01-23 17:17] LABS: Glucose Point of Care 112 mg/dL (70-110)
[2021-01-23] MEDS: BuSPIRONE 10 mg Tablet PO (18:22)
[2021-01-23] MEDS: quetiapine 25 mg Tablet PO (18:22)
--- NOTE | 2021-01-23 21:32 | PC.NURSE ---
Transfer Patient off floor at this time to CSU with all personal belongings via wheelchair by EMPERATRIZ Frazier. Report called by this nurse to BROOKE Menard in CSU at 2114.
[2021-01-23 21:43] LABS: Glucose Point of Care 174 mg/dL (70-110)
[2021-01-23] MEDS: fentaNYL 50 mcg/mL INJ 2mL 25 MCG IVP (22:03)
--- NOTE | 2021-01-23 22:14 | PC.NURSE ---
Patient received from [facility] via wheelchair. Patient has history of ADD and is up in his room cleaning, rearranging, nesting. Patient is pleasant and cooperative but very restless. Medication given as ordered. Administered pain medication as well. Instructed patient on Fentanyl to include expectations and side effects. Patient verbalized understanding but will need reinforcement. Patient incision to posterior neck from a surgery on 01/20/21 with inocencia and sutures in place. Persistent drainage present that is pink,creamy to clear serosanquinous. Performed dressing change due to saturation. Patient tolerated well.
[2021-01-24] VITALS (23 sets, daily range): BP systolic 120–131; BP diastolic 72–99; PULSE 80–122; RESP 16–39; TEMP 36.6–37.2; O2SAT 92–100
[2021-01-24] MEDS: ceFAZolin 1,000 MG in sodium chloride 0.9% (plus) 50 ML 100 MG IV (02:23)
[2021-01-24] MEDS: fentaNYL 50 mcg/mL INJ 2mL 25 MCG IVP ×5 (02:25→19:45)
[2021-01-24 05:27] LABS: Basophils % 0.4 %; Eosinophils # 0.1 10^3/uL (0.0-0.8); Eosinophils % 0.9 %; Hemoglobin 9.3 g/dL (11.7-16.6); Lymphocytes # 1.5 10^3/uL (0.8-4.8); Lymphocytes % 15.4 %; Mean Corpuscular Hemoglobin 27.8 pg (28.0-34.0); Mean Corpuscular Volume 89.8 fL (80-94); Monocytes # 1.3 10^3/uL (0.2-0.9); Monocytes % 13.4 %; Neutrophils # 6.63 10^3/uL (1.8-7.7); Neutrophils % 69.3 %; Nucleated Red Blood Cells % 0 %; Platelet Count 193 10^3/cmm (130-400); Red Blood Count 3.34 10^6/uL (4.1-5.3); Red Cell Distribution Width 13.6 % (12.1-15.1); White Blood Count 9.6 10^3/uL (4.0-10.0)
[2021-01-24] MEDS: metoprolol succinate ER (24 HR) 50 mg Tablet 25 MG PO (05:46)
[2021-01-24 05:47] LABS: Alanine Aminotransferase 18 U/L (0-41); Albumin Level 3.1 g/dL (3.5-5.2); Alkaline Phosphatase 58 IU/L (40-130); Anion Gap 12.6 (5-19); Aspartate Amino Transferase 27 U/L (0-40); Blood Urea Nitrogen 13 mg/dL (6-20); Calcium 8.4 mg/dL (8.5-10.5); Carbon Dioxide 27 mmol/L (22-29); Chloride 101 mmol/L (98-107); Globulin 3.1 g/dL (1.3-4.6); Glomerular Filtration Rate 65.8 mL/min (90-130); Glucose 130 mg/dL (65-115); Osmolality Calculated 286 mOsm/kg (285-295); Potassium 3.6 mmol/L (3.5-5.1); Sodium 137 mmol/L (136-145); Total Bilirubin 0.3 mg/dL (0.15-1.2); Total Protein 6.2 g/dL (6.6-8.7)
[2021-01-24 06:42] LABS: Glucose Point of Care 133 mg/dL (70-110)
[2021-01-24] MEDS: gabapentin 300 mg Capsule PO ×3 (08:19→21:29)
[2021-01-24] MEDS: doxycycline 100 mg Tablet PO ×2 (08:19→17:34)
[2021-01-24] MEDS: pantoprazole DR 40 mg Tablet PO ×2 (08:19→17:34)
[2021-01-24] MEDS: topiramate 25 mg Tablet 50 MG PO ×2 (08:19→17:34)
[2021-01-24] MEDS: BuSPIRONE 10 mg Tablet PO ×2 (08:19→17:34)
--- NOTE | 2021-01-24 11:00 | PC.NURSE ---
received call from Dr trejo to make patient NPO after midnight to night in anticipation for surgery tomorrow
[2021-01-24 11:40] LABS: Glucose Point of Care 138 mg/dL (70-110)
--- NOTE | 2021-01-24 12:15 | PC.NURSE ---
Received report from BROOKE De Los Santos. Pt presents up in room walking around talking on phone. Pt had no c/o pain or discomfort at the present time. No needs voiced. Will continue to monitor.
[2021-01-24] MEDS: cyclobenzaprine 10 mg Tablet PO (12:36)
--- NOTE | 2021-01-24 16:39 | PC.CHAP ---
Pastoral Care Encounter/Spiritual Assessment Type of Contact [] Declined deputy clerk of superior court visit [] Patient/Family/Request visit [] Outpatient visit [] Follow-up visit [] Physician referral [] Code/Alert [XX] Routine visit [] Staff referral [] Actively dying [] Patient sleeping [] Family support [] [] Out of room [] Palliative care [] [] Receiving care in room [] Pre-surgical visit [] Trauma [] Long length of stay [] ICU visit [] Other: Relational/Emotional Strength [XX] Patient feels connected with others/family/visitors/staff [] Distress [] Loneliness/isolation [] Abandonment Spirituality of Patient [] Person of Odette [] Attends Religion of their Odette [] Believes in Prayer [] Reads Bible or Scientologist materials [XX] There are Spiritual issues to be addressed Avionics Repair Technician Interventions [] Prayer [XX] Active listening [XX] Non-anxious presence [] Spiritual/emotional support [] Crisis/trauma care [] Spiritual counseling [] Bereavement support [] Provided bereavement packet [] Provided Bible/devotional materials [] Provided toy/stuffed animal, coloring book to patient or family member [] Provided Communion [] Anointing/[place] [] Salvation [XX] Completed spiritual assessment [] Other: Impact on Illness or Injury [] Angry [] Fearful [] Anxious [] Often cries [] Exhaustion [] Unable to work [] Unable to attend mormonism [] Unable to walk/stand [] Unable to read [] Unable to drive [] Unable to eat/drink [] Unable to sleep [] Unable to be with family [] Patient intubated [] Other: Summary: Avionics Repair Technician et with pt and his . Pt had been given pain medicine and was initially conversing but that dwindled during the visit. The couple expressed no emotional or spiritual needs. Pt has 7 children and 3 grandchildren and reports that his back/neck injuries are due to his lifestyle (derbies, work, etc). Time spent with patient: 5 mins
[2021-01-24] MEDS: quetiapine 25 mg Tablet PO (17:34)
[2021-01-24 20:13] LABS: Glucose Point of Care 182 mg/dL (70-110)
[2021-01-24 20:13] LABS: Glucose Point of Care 175 mg/dL (70-110)
[2021-01-24] MEDS: insulin glargine 100 units/1 mL 20 UNIT SUBCUT (21:29)
--- NOTE | 2021-01-24 21:32 | PM.PN ---
Subjective Subjective: Interval history: Persistent drainage from the wound. Nonpurulent. Nonbloody. Continues to have pain. Feels some fullness in the upper back below the incision. Vitals/I&O/Wt Last Vital Signs Temp 98 F 01/24/21 19:16 Pulse 100 01/24/21 21:07 Resp 18 01/24/21 21:07 BP 129/72 01/24/21 19:16 Pulse Ox 96 01/24/21 21:07 01/24/21 01/24/21 01/24/21 06:59 14:59 22:59 Intake Total 50 / 860 360 / 360 360 / 720 Output Total 275 / 575 Balance -225 / 285 360 / 360 360 / 720 Weight last 48 hrs Weight 88.677 kg Weight 84.776 kg Physical Exam Narrative: EXAM NARRATIVE: Accompanied by his at bedside. Const: COMMON NORMALS: patient oriented x3 and alert GENERAL APPEARANCE: anxious ORIENTATION/CONSCIOUSNESS: Yes awake OTHER: Bothered by pain in his neck. Back spasm. HENMT: COMMON NORMALS: oropharynx normal Neck/C-Spine: COMMON NORMALS: no JVD Resp: COMMON NORMALS: normal respiratory effort and clear to auscultation bilaterally AUSCULTATION: clear to auscultation bilaterally Cardio: COMMON NORMALS: no JVD, regular rhythm, S1 normal heart sound present, S2 normal heart sound present and No murmurs present (Cardio) RATE: tachycardic RHYTHM: regular rhythm HEART SOUNDS: S1 normal heart sound present and S2 normal heart sound present GI: COMMON NORMALS: Normal to inspection, nondistended, normoactive bowel sounds present, Soft to palpation and non-tender PALPATION: Yes Soft to palpation Extremity: COMMON NORMALS: no joint enlargement and no pedal edema OTHER: Small bruise on medial lateral aspect of the left foot Neuro: COMMON NORMALS: patient oriented x3 and moves all extremities SENSORIUM/ORIENTATION: Yes alert Skin: LESIONS: other (No splinter hemorrhages. No Osler's nodes.) WOUNDS: Yes wounds noted (Surgical wound posterior neck, occasional slow SS DC) without odor, sutures and inocencia; without any surrounding erythema OTHER: Tattoos. Excoriations from scratching. Data : 01/24/21 05:09 01/24/21 05:09 Micro: Microbiology 01/23/21 15:40 Wound Culture - Preliminary Neck 01/22/21 19:13 Blood Culture - Preliminary Blood NEGATIVE TO DATE 01/22/21 19:08 Blood Culture - Preliminary Blood NEGATIVE TO DATE A&P Assessment and plan (1) Wound dehiscence: Leukocytosis resolved, but persistent drainage. N.p.o. after midnight for wound exploration in OR tomorrow. Continue to monitor condition in the hospital. Continue empiric antibiotics after additional sutures and inocencia. Follow-up blood cultures so far negative. Wound cultures. Appears documentation not yet obtained from [facility]. Discussed with community services manager and she is placing the request. Follow-up culture results and other documentation from [facility]. Received cefepime and Vanco there. Had a blood culture collected. Follow-up beta-2 transferrin level in draining fluid to assess for possible CSF leak. Continue on CSU. Was transferred here to allow for pain treatment with fentanyl as he has been having diffuse pruritus thought to be possibly secondary oxycodone, is allergic to anything with Tylenol, did not do well with Dilaudid at [facility], and morphine was thought to put him at risk of further histamine release. MRSA nasal negative. Status: Acute (2) S/P cervical spinal fusion: 01/20 Status: Acute (3) Sinus tachycardia: As above Status: Acute (4) Neutrophilic leukocytosis: Resolved. Status: Acute (5) Respiratory acidosis: Monitor oxygenation with opioids. Avoid hyperoxia. Avoid fluid overload. Multifactorial secondary to combination of intermittent hypoxemia due to lack of sleep, pulmonary vascular congestion, intermittent opioid and tracheal compression. Cautious pain control. Avoid hyperoxia. Monitor for need of BiPAP therapy. Narcan in case of respiratory depression. Currently awake, alert, talking. Would benefit from PFT on outpatient basis. Status: Acute (6) Hypoxia: Lungs sound good. Continues to require oxygen. Avoid additional fluids. New onset hypoxia. Unclear etiology. No pneumonia, PE on imaging. Cardiomegaly, which he reports is known. Pulmonary vascular congestion on admission. In positive balance. Blood pressure is improved. Renal function improving. Consider small dose of Lasix if persists. Reports history of asthma for which he uses occasional inhaler. Reports history of intermittent wheeze as well as long history of respiratory difficulty during playing sports. Appears hypoxia is multifactorial secondary pulmonary vascular congestion, tracheal compression, possibly occasional hypopnea. Would benefit from PFT after discharge. Low probability of COVID-19 given he was tested presurgically, and with reported negative test during hospitalization at [facility] 01/21. Status: Acute (7) Acute kidney injury superimposed on CKD: Improving. Avoid nephrotoxins. Suspected secondary to Toradol he states was receiving during prior hospitalization. Avoid NSAIDs. Monitor blood pressures. Avoid hypotension. reports he has stage III kidney disease. Avoid fluid challenge at this time as appears to be fluid overloaded with pulmonary vascular congestion, possibly after receiving IV fluids, infusions during the recent hospitalization. Status: Acute (8) Troponin level elevated: Baseline 31, 2-hour 22.12, 6-hour 25.97. Denies chest pain. EKG with sinus tachycardia. Does not appear to have acute [place] at this time. Suspect this is demand ischemia related, however, may be in the setting of underlying coronary disease, and he will benefit from all risks education at some point when he has recovered somewhat. Status: Acute (9) Hyponatremia: Resolved. Avoid sodium restriction. 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 As above. This is likely chronic, but appears to be contributing to his acute issues. Discussed with patient and his . 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 Caution with pain medication. Diabetes Asthma GERD History of hepatitis HTN HLD Current smoker Other chronic conditions noted Attestations Medical Necessity Statement*: Continue admission for assessment management of wound dehiscence with persistent drainage, persistent sinus tachycardia, assessment of wound after recent cervical fusion for possible infection. Assessment for possible CSF leak. 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
[2021-01-25] VITALS (22 sets, daily range): BP systolic 96–129; BP diastolic 64–101; PULSE 89–120; RESP 15–25; TEMP 36.6–37; O2SAT 93–100
[2021-01-25] MEDS: fentaNYL 50 mcg/mL INJ 2mL 25 MCG IVP ×3 (00:08→08:08)
--- NOTE | 2021-01-25 00:28 | PC.NURSE ---
Patient has been educated multiple times on the importance of following physician orders regarding his c-collar and post operative dressings. Pt has not been wearing his c-collar as ordered and has added foam tape to the dressing that was applied by the nurse. Pt has had to have leads replaced multiple times for his ECG and pt has been educated on his NPO status after midnight.
[2021-01-25] MEDS: cyclobenzaprine 10 mg Tablet PO ×3 (01:20→20:27)
[2021-01-25 04:00] LABS: Basophils % 0.4 %; Eosinophils # 0.1 10^3/uL (0.0-0.8); Eosinophils % 1.8 %; Hematocrit 30.4 % (42.0-52.0); Hemoglobin 9.4 g/dL (11.7-16.6); Lymphocytes # 1.4 10^3/uL (0.8-4.8); Lymphocytes % 18.6 %; Mean Corpuscular HGB Conc 30.9 g/dL (30.0-36.0); Mean Corpuscular Hemoglobin 27.7 pg (28.0-34.0); Mean Corpuscular Volume 89.7 fL (80-94); Mean Platelet Volume 10.1 fL (7.4-10.4); Monocytes # 1.2 10^3/uL (0.2-0.9); Monocytes % 16.6 %; Neutrophils # 4.44 10^3/uL (1.8-7.7); Neutrophils % 61.4 %; Nucleated Red Blood Cells % 0 %; Platelet Count 227 10^3/cmm (130-400); Red Blood Count 3.39 10^6/uL (4.1-5.3); Red Cell Distribution Width 13.6 % (12.1-15.1); White Blood Count 7.2 10^3/uL (4.0-10.0)
[2021-01-25 04:25] LABS: Alanine Aminotransferase 15 U/L (0-41); Albumin Level 3.2 g/dL (3.5-5.2); Alkaline Phosphatase 61 IU/L (40-130); Aspartate Amino Transferase 26 U/L (0-40); Blood Urea Nitrogen 10 mg/dL (6-20); Calcium 8.7 mg/dL (8.5-10.5); Carbon Dioxide 25 mmol/L (22-29); Chloride 102 mmol/L (98-107); Creatinine Clr Calc Pharmacy 102.1355; Globulin 2.7 g/dL (1.3-4.6); Glomerular Filtration Rate 81.2 mL/min (90-130); Glucose 163 mg/dL (65-115); Osmolality Calculated 283 mOsm/kg (285-295); Sodium 135 mmol/L (136-145); Total Bilirubin 0.6 mg/dL (0.15-1.2); Total Protein 5.9 g/dL (6.6-8.7)
[2021-01-25] MEDS: metoprolol succinate ER (24 HR) 50 mg Tablet 25 MG PO (05:32)
[2021-01-25 06:51] LABS: Glucose Point of Care 199 mg/dL (70-110)
--- NOTE | 2021-01-25 09:02 | PC.NURSE ---
spoke with Dr. Bruce about patient NPO status prior to surgery and po medications due at this time instructions to give abx doxy and hold all other po medications due to NPO
[2021-01-25] MEDS: doxycycline 100 mg Tablet PO ×2 (09:08→18:07)
--- NOTE | 2021-01-25 09:11 | PC.NURSE ---
patient sitting up on side of bed unable to sit still due to reports of pain in his neck even after ivp medication patient continues to have severe pain
--- NOTE | 2021-01-25 09:15 | PC.NURSE ---
reported patient continued reports of pain in patinets neck to Dr peguero instructions given to proceed with dilaudid administration as orders also have narcan in hands due to close admin of fentenyl
[2021-01-25] MEDS: HYDROmorphone 1 mg/mL INJ 1 mL IVP ×4 (09:17→21:27)
--- NOTE | 2021-01-25 09:30 | PC.SOCIAL ---
IMM completed 01/25/21 @ 0902. Copy of rights given to pt.
--- NOTE | 2021-01-25 10:36 | PC.NURSE ---
during time of administration patient was in severe pain Dr peguero notified in delay of administration ok to start now
[2021-01-25] MEDS: lidocaine 1% 5 ML in potassium chloride premix 100 ML 25 ML IV (10:43)
[2021-01-25 11:31] LABS: Glucose Point of Care 143 mg/dL (70-110)
--- NOTE | 2021-01-25 12:21 | W.PM.OPSUD ---
Surgery/Procedure H&P Update DATE OF PROCEDURE: January 25, 2021 DATE H&P PERFORMED: 01/25/21 PREOP DIAGNOSIS: cervical spondylosis with radiculopathy PLANNED PROCEDURE: Operation Date: 01/25/21 13:55 Proposed Procedures p debridement neck incision(Not Applicable) - Darius Mitchell DO
--- NOTE | 2021-01-25 12:23 | PM.HP ---
Providers/Chief Complaint Admitting Physician: Archie Espinosa Primary Care Provider: MIKEY Lucero Chief Complaint: neck/back surgery on mon, stitches coming apart History of Present Illness Chris Junior is a 45 year old male who had a posterior cervical fusion done on 01/21/2004. Patient subsequent left a hospital next day and lifting a tote up suspecting that he likely ripped apart his sutures underneath and has been draining ever since. He since gone to multiple ERs. At this point my plan is to take him back to the OR today. Review of Systems Narrative: General: denies fatigue, fever or chills HEENT: denies ear pain, denies nasal congestion, denies vision changes, denies sore throat Neck: denies masses or pain Resp: denies cough, denies shortness of breath, denies pleuritic pain, complains that he seems to gasp for air while sleeping and this is all new since the surgery Cardio: denies chest pain, denies edema GI: denies abdominal pain, denies N/V/D, denies black/tarry or bloody stools : denies hematuria, denies dysuria Neuro: denies headache, denies dizziness, denies motor or sensory changes Musculoskeletal: denies pain, denies swelling, post neck wound with some seriousanguinous type drainaige, no odor Skin: denies rashes Psych: denies SI or HI Endocrine: denies thyroid symptoms, denies lymphadenopathy all over ROS reviewed and patient denies Const: Reports: fatigue, malaise and other (Has been unable to sleep at night. Tired during the day.); Denies: fever(s), chills or body aches Eyes: Denies: change in vision, photophobia or eye redness ENMT: Denies: throat pain, oral sores or ear or mastoid pain Card: Denies: chest pain, edema, pre-syncope or dyspnea on exertion Resp: Denies: dyspnea, productive cough, change in phlegm color or hemoptysis GI: Denies: abdominal pain, nausea, vomiting, diarrhea, constipation, hematochezia or melena : Denies: flank pain, difficulty urinating, urinary frequency or hematuria Musc: Reports: neck pain and muscle cramps (Lower back); Denies: joint swelling, joint redness or joint warmth Skin/Breast: Reports: other (Neck surgical wound dehiscence as above.); Denies: rash, sores or new lesions Neuro: Denies: headache(s), numbness in extremities, weakness in extremities, dizziness, confusion or seizure-like activity Endo: Denies: polyuria or polydipsia Nba/Lymph: Denies: easy bleeding or purpura All/Imm: Denies: urticaria, throat swelling, tongue swelling or acute wheezing Medications/Allergies Home Medications Medication Instructions Recorded Confirmed Last Taken Type albuterol sulfate 90 mcg/actuation 1 - 2 puff INHALATION Q6H PRN 30 03/30/20 01/22/21 01/04/21 Rx aerosol inhaler Days #18 gm dicyclomine 10 mg capsule 10 mg PO QID PRN 30 Days #60 cap 10/12/20 01/22/21 01/21/21 Rx topiramate 50 mg tablet 50 mg PO BID #60 tab 10/21/20 01/22/21 01/21/21 Rx Bone Stimulator [id number] #1 ea 12/23/20 01/22/21 Unknown Rx quetiapine 25 mg tablet 100 mg PO QPM tab 12/23/20 01/22/21 01/21/21 History Lantus Solostar U-100 Insulin 30 unit SUBCUT BEDTIME 01/06/21 01/22/21 01/21/21 History metoprolol succinate 50 mg PO QAM 01/06/21 01/22/21 01/21/21 History cyclobenzaprine 10 mg PO TID PRN 01/15/21 01/22/21 01/21/21 History ondansetron HCl 4 mg tablet 4 mg PO Q6H PRN #30 tab 01/15/21 01/22/21 01/19/21 Rx tizanidine [Zanaflex] 4 mg PO Q8H PRN 01/15/21 01/22/21 01/20/21 History oxycodone 10 mg PO Q4H PRN 7 Days #60 tab 01/21/21 01/22/21 01/21/21 Rx Farxiga 10 mg PO QAM 01/22/21 01/22/21 01/21/21 History gabapentin 300 mg PO TID 01/22/21 01/22/21 01/21/21 History metformin 500 mg PO QAM 01/22/21 01/22/21 01/21/21 History omeprazole 20 mg PO BID 01/22/21 01/22/21 01/21/21 History sumatriptan succinate 50 mg PO PRN 01/22/21 01/22/21 Unknown History vilazodone [Viibryd] 40 mg PO QAM 01/22/21 01/22/21 01/21/21 History buspirone [BuSpar] 15 mg PO TID 01/24/21 01/24/21 Unknown History Allergies Allergy/AdvReac Type Severity Reaction Status Date / Time adhesive tape Allergy Severe rash Verified 01/22/21 14:49 Sulfa (Sulfonamide Allergy Severe unknown Verified 01/22/21 14:49 Antibiotics) tramadol Allergy Severe itch Verified 01/22/21 14:49 acetaminophen [From Tylenol] AdvReac Severe ALGY-Swell Verified 01/22/21 14:49 Lip/Tongue/Throat PFSH Acute PFSH: Medical History (Updated 01/22/21 @ 22:29 by Archie Espinosa MD) ADD (attention deficit disorder) Angina decubitus Asthma Carpal tunnel syndrome Chest pain Chronic pain syndrome GERD (gastroesophageal reflux disease) Hematuria History of hepatitis Hyperlipidemia Hypertension Irritable bowel syndrome Peptic ulcer disease Pneumothorax Seasonal allergies Staphylococcal infection of skin Tobacco use Type 2 diabetes mellitus Surgical History (Updated 01/22/21 @ 21:57 by Archie Espinosa MD) H/O chest tube placement H/O neck surgery H/O wrist surgery R History of back surgery History of carpal tunnel surgery L Family History Family/Other No problems noted. Other Adopted Social History Smoking and tobacco status: current some day smoker cigarettes Packs smoked per day: 0 [ Other cigarette details: Says has been cutting down ] and smokeless tobacco Quit status (tobacco): considering quitting Second hand smoke exposure: Yes Smoking risk assessment/counseling performed?: No Alcohol intake: former Desire information about alcohol rehabilitation?: No Substance/Drug Use: former Date of last use: Former occasional marijuana. Currently occ CBD oil. Lives independently: Yes Household members: spouse Marital status: Current occupational status: unemployed History of recent travel: No Current gender identity: Male Vitals/I&O/Wt Last Vital Signs Temp 98.5 F 01/25/21 07:07 Pulse 108 H 01/25/21 07:07 Resp 22 H 01/25/21 09:17 BP 123/101 01/25/21 07:07 Pulse Ox 98 01/25/21 07:07 01/24/21 01/25/21 01/25/21 22:59 06:59 14:59 Intake Total 600 / 960 Output Total 350 / 350 Balance 250 / 610 Weight last 48 hrs Weight 195 lb Weight 196 lb Weight 195 lb 8 oz Physical Exam Narrative: EXAM NARRATIVE: wound continues to drain CONSTITUTIONAL: The patient is a normal appearing [] in no apparent distress. GENERAL: Patient in no acute distress. CARDIAC: Regular rate and rhythm. CHEST: Normal inspiratory effort, normal respiratory rate. ABDOMEN: Soft and nontender. SKIN: Clear, warm and intact. NEURO?PSYCH: The patient is alert and oriented to person, place and time. Sensorv /SILT Motor StrengthShoulder abduction C5 5/5Wrist extension C6 5/5Elbow extension C7 5/5Hand Auto Porter C8 5/5Finger abduction T15/5 Radial/ Ulnar/ Median n intact LowerSensory (SILT)Motor StrengthHin flexion L2/3Ant/inner thigh 5/5Hip adduction L2/3 5/5Knee extension L4 Lat thigh, 5/5Toe dorsiflexion L5 5/5Ankle dorsiflexion L5/ Y48Wsenrrh flexion S1 5/5 DTRBleeps 2+Triceps 2+Brachioradialis 2+Patellar 2+Achilles 2+ MUSCULOSKELETAL: [] UPPEREXTREMITIES: The patient had full active ROM in fingers, wrist, elbow, and shoulder. The patient demonstrated ability to fully flex/extend/abduct/adduct fingers, make ok sign, cross 2nd/3rd digits, extend 1st digit fully.. Radial pulse 2+, CR<2 seconds. LOWER EXTREMITIES: Pt has full, active ROM of toes, ankle, knee, and hip. Dorsalis pedis/posterior tibialis pulses 2+, CR<2 seconds. SPINE: Skin warm, dry, intact. Data : 01/25/21 03:05 01/25/21 03:05 Micro: Microbiology 01/23/21 15:40 Wound Culture - Preliminary Neck A&P Assessment and plan (1) S/P cervical spinal fusion: Patient is having drainage from his wound plan is to take him back to surgery washout evaluate him and closed when back up. Status: Acute (2) Wound dehiscence: Status: Acute Additional A&P Information wound continues to drain will plan to take to OR monday Attestations Medical Necessity Statement*: surgery today Coding Level of Care Code Acute Certified Medical Biller for Marcos Fwchioma Diagnoses S/P cervical spinal fusion Z98.1 Wound dehiscence T81.30XA
--- NOTE | 2021-01-25 12:45 | P.ANESUD_ITS ---
Pre-Anesthetic Update Pre-Anesthetic Assessment: Date of Surgery/Procedure: 01/25/21 Preop Mary Ellen gnosis: cervical spondylosis with radiculopathy Proposed Procedure: Operation Date: 01/25/21 13:55 Proposed Procedures p debridement neck incision(Not Applicable) - Darius Mitchell, DO Any changes to Pre-Anesthetic Assessment?: Yes Changes from Pre-Anesthetic Assessment: CHF/pulmonary vascular congestion Labs Last 48hrs: Laboratory Results - last 48 hr 01/23/21 01/23/21 01/24/21 17:11 21:40 05:09 WBC 9.6 RBC 3.34 L Hgb 9.3 L Hct 30.0 L MCV 89.8 MCH 27.8 L MCHC 31.0 RDW 13.6 Plt Count 193 MPV 10.0 Neut % (Auto) 69.3 Lymph % (Auto) 15.4 Valley % (Auto) 13.4 Eos % (Auto) 0.9 Baso % (Auto) 0.4 Neut # (Auto) 6.63 Lymph # (Auto) 1.5 Valley # (Auto) 1.3 H Eos # (Auto) 0.1 Baso # (Auto) 0.0 Nucleated RBC % (a uto) 0 Nucleated RBCs # 0.0 Sodium Potassium Chloride Carbon Dioxide Anion Gap BUN Creatinine GFR Calculation Glucose POC Glucose 112 H 174 H Calculated Osmolal ity Calcium Total Bilirubin AST ALT Alkaline Phosphata se Total Protein Albumin Globulin 01/24/21 01/24/21 01/24/21 05:09 06:36 11:30 WBC RBC Hgb Hct MCV MCH MCHC RDW Plt Count MPV Neut % (Auto) Lymph % (Auto) Valley % (Auto) Eos % (Auto) Baso % (Auto) Neut # (Auto) Lymph # (Auto) Valley # (Auto) Eos # (Auto) Baso # (Auto) Nucleated RBC % (a uto) Nucleated RBCs # Sodium 137 Potassium 3.6 Chloride 101 Carbon Dioxide 27 Anion Gap 12.6 BUN 13 Creatinine 1.2 GFR Calculation 65.8 L Glucose 130 H POC Glucose 133 H 138 H Calculated Osmolal ity 286 Calcium 8.4 L Total Bilirubin 0.3 AST 27 ALT 18 Alkaline Phosphata se 58 Total Protein 6.2 L Albumin 3.1 L Globulin 3.1 01/24/21 01/24/21 01/25/21 16:35 19:19 03:05 WBC 7.2 RBC 3.39 L Hgb 9.4 L Hct 30.4 L MCV 89.7 MCH 27.7 L MCHC 30.9 RDW 13.6 Plt Count 227 MPV 10.1 Neut % (Auto) 61.4 Lymph % (Auto) 18.6 Valley % (Auto) 16.6 Eos % (Auto) 1.8 Baso % (Auto) 0.4 Neut # (Auto) 4.44 Lymph # (Auto) 1.4 Valley # (Auto) 1.2 H Eos # (Auto) 0.1 Baso # (Auto) 0.0 Nucleated RBC % (a uto) 0 Nucleated RBCs # 0.0 Sodium Potassium Chloride Carbon Dioxide Anion Gap BUN Creatinine GFR Calculation Glucose POC Glucose 175 H 182 H Calculated Osmolal ity Calcium Total Bilirubin AST ALT Alkaline Phosphata se Total Protein Albumin Globulin 01/25/21 01/25/21 01/25/21 03:05 06:38 11:05 WBC RBC Hgb Hct MCV MCH MCHC RDW Plt Count MPV Neut % (Auto) Lymph % (Auto) Valley % (Auto) Eos % (Auto) Baso % (Auto) Neut # (Auto) Lymph # (Auto) Valley # (Auto) Eos # (Auto) Baso # (Auto) Nucleated RBC % (a uto) Nucleated RBCs # Sodium 135 L Potassium 3.0 L Chloride 102 Carbon Dioxide 25 Anion Gap 11.0 BUN 10 Creatinine 1.0 GFR Calculation 81.2 L Glucose 163 H POC Glucose 199 H 143 H Calculated Osmolal ity 283 L Calcium 8.7 Total Bilirubin 0.6 AST 26 ALT 15 Alkaline Phosphata se 61 Total Protein 5.9 L Albumin 3.2 L Globulin 2.7 Vitals: Temperature 98.5 F 01/25/21 12:00 Temperature Source Oral 01/25/21 12:00 Pulse Rate 120 H 01/25/21 12:00 Pulse Rhythm 01/25/21 08:00 Pulse Strength 3+ Normal 01/25/21 08:00 Respiratory Rate 23 H 01/25/21 12:00 Respiratory Effort Non-Labored 01/25/21 09:17 Respiratory Depth Normal 01/25/21 09:17 Respiratory Patter n 01/25/21 08:08 Blood Pressure 118/89 01/25/21 12:00 Blood Pressure Ella n 98 01/25/21 12:00 Blood Pressure Pos ition Supine 01/25/21 03:42 Pulse Oximetry 99 01/25/21 12:00 Oxygen Delivery Me thod 01/25/21 12:00 Oxygen Flow Rate 6 01/24/21 07:37 Sepsis Recent Feve r Within 48 Hours No 01/22/21 13:33 Exam: Pre-Anes Outpt Exam: alert, oriented x 3, clear to auscultation bilaterally and regular rate & rhythm Cardiac Studies: No Data to Display
--- NOTE | 2021-01-25 14:13 | PM.OP ---
Operative Report Date of procedure: January 25, 2021 Pre-op Diagnosis: Posterior cervical wound dehiscence Post-op diagnosis: same Procedure Done: Complex layered closure of posterior cervical wound and exploration Anesthesia: General Estimated blood loss (mL): 25 Condition: stable Disposition: PACU Procedure: complex layered closure of posterior cervical wound and exploration Is brought to the operative suite after undergoing anesthesia was placed in prone position all areas of impingement were well-padded. Patient was prepped and draped in a sterile fashion. Previous incision was opened. And explored down to previous surgery hardware was identified the dura from the previous laminectomies were identified. Did not see any evidence of any CSF leak. Had anesthesia do a Valsalva maneuver and there was still no evidence of any CSF leak. This point wounds were irrigated cultures were taken and wound was closed in a layered fashion starting with the fascia using 0 Vicryl interrupted stitches followed by strata fix followed by 2-0 Vicryl and nylon suture. Sterile dressings were applied patient was transferred to the PACU in stable condition.
--- NOTE | 2021-01-25 14:52 | SUR.PHASEI ---
PT DOES NOT AWAKE TO TOUCH OR VOICE, GOOD RESP EFFORT NOTED C COLLAR IIN PLACE NO BLEEDING NOTED HARD TO VISUALIZE THE DRESSING TO BACK OF NECK, PT ON RA TRIAL.
--- NOTE | 2021-01-25 15:01 | PC.CHAP ---
Pastoral Care Encounter/Spiritual Assessment Type of Contact [] Declined printed circuit boards inspector visit [] Patient/Family/Request visit [] Outpatient visit [] Follow-up visit [] Physician referral [] Code/Alert [x] Routine visit [] Staff referral [] Actively dying [] Patient sleeping [] Family support [] [] Out of room [] Palliative care [] [] Receiving care in room [] Pre-surgical visit [] Trauma [] Long length of stay [] ICU visit [] Other: Relational/Emotional Strength [] Patient feels connected with others/family/visitors/staff [] Distress [] Loneliness/isolation [] Abandonment Spirituality of Patient [] Person of Od[place] [] Attends Pentecostalism of their [place] [] Believes in Prayer [] Reads Bible or Anabaptism materials [] There are Spiritual issues to be addressed Loading Unit Operator Crimping Interventions [] Prayer [] Active listening [] Non-anxious presence [] Spiritual/emotional support [] Crisis/trauma care [] Spiritual counseling [] Bereavement support [] Provided bereavement packet [] Provided Bible/devotional materials [] Provided toy/stuffed animal, coloring book to patient or family member [] Provided Communion [] Anointing/[place] [] Salvation [] Completed spiritual assessment [x] Other: patientd-dc Impact on Illness or Injury [] Angry [] Fearful [] Anxious [] Often cries [] Exhaustion [] Unable to work [] Unable to attend baptism [] Unable to walk/stand [] Unable to read [] Unable to drive [] Unable to eat/drink [] Unable to sleep [] Unable to be with family [] Patient intubated [] Other: Summary Time spent with patient
--- NOTE | 2021-01-25 15:52 | PC.NURSE ---
patient received back from surgery alert to self patient is sleepy was able to follow directions and get off gurny and pivot to bed patient resting at this time dressing is clean Dry and intact C collar in place
[2021-01-25 16:35] LABS: Glucose Point of Care 162 mg/dL (70-110)
--- NOTE | 2021-01-25 16:50 | PM.PN ---
Subjective Subjective: Interval history: Afebrile overnight, continues to have severe neck pain, no current leaking, but was leaking yesterday he tells me, is n.p.o., for surgical exploration by Dr. Mitchell Vitals/I&O/Wt Last Vital Signs Temp 98.1 F 01/25/21 15:00 Pulse 97 01/25/21 16:36 Resp 18 01/25/21 16:36 BP 117/86 01/25/21 16:00 Pulse Ox 99 01/25/21 16:36 01/25/21 01/25/21 01/25/21 06:59 14:59 22:59 Intake Total 94.583 / 94.583 30 / 124.583 Output Total 0 / 0 Balance 94.583 / 94.583 30 / 124.583 Weight last 48 hrs Weight 88.451 kg Weight 88.904 kg Weight 88.677 kg Physical Exam Const: COMMON NORMALS: no acute distress and patient oriented x3 HENMT: COMMON NORMALS: normocephalic HEAD & SCALP: normocephalic Neck/C-Spine: COMMON NORMALS: no JVD Resp: COMMON NORMALS: normal respiratory effort, No retractions, No use of accessory muscles and clear to auscultation bilaterally AUSCULTATION: clear to auscultation bilaterally Cardio: COMMON NORMALS: no JVD, regular rate, regular rhythm, S1 normal heart sound present and S2 normal heart sound present RATE: regular rate RHYTHM: regular rhythm HEART SOUNDS: S1 normal heart sound present and S2 normal heart sound present GI: COMMON NORMALS: Normal to inspection, nondistended, normoactive bowel sounds present, Soft to palpation, non-tender, No hepatosplenomegaly present, no masses and no bruits PALPATION: Yes Soft to palpation and Yes No hepatosplenomegaly present Extremity: COMMON NORMALS: capillary refill normal, no clubbing, cyanosis or edema, no calf tenderness and no pedal edema Neuro: COMMON NORMALS: patient oriented x3 Psych: COMMON NORMALS: mental status grossly normal Data : 01/25/21 03:05 01/25/21 03:05 Micro: Microbiology 01/23/21 15:40 Wound Culture - Preliminary Neck A&P Assessment and plan (1) Wound dehiscence: Leukocytosis resolved, but persistent drainage. Will undergo wound exploration today Continue to monitor condition in the hospital. Continue empiric antibiotics after additional sutures and inocencia. Follow-up blood cultures so far negative. Wound cultures. Appears documentation not yet obtained from [facility]. Discussed with director community center and she is placing the request. Follow-up culture results and other documentation from [facility]. Received cefepime and Vanco there. Had a blood culture collected. Follow-up beta-2 transferrin level in draining fluid to assess for possible CSF leak. Continue on CSU. Did well with Dilaudid this morning MRSA nasal negative. Status: Acute (2) S/P cervical spinal fusion: 01/20 Status: Acute (3) Sinus tachycardia: As above Status: Acute (4) Neutrophilic leukocytosis: Resolved. Status: Acute (5) Respiratory acidosis: Monitor oxygenation with opioids. Avoid hyperoxia. Avoid fluid overload. Multifactorial secondary to combination of intermittent hypoxemia due to lack of sleep, pulmonary vascular congestion, intermittent opioid and tracheal compression. Cautious pain control. Avoid hyperoxia. Monitor for need of BiPAP therapy. Narcan in case of respiratory depression. Currently awake, alert, talking. Would benefit from PFT on outpatient basis. Status: Acute (6) Hypoxia: Resolved, currently on room air Lungs sound good. Continues to require oxygen. Avoid additional fluids. New onset hypoxia. Unclear etiology. No pneumonia, PE on imaging. Cardiomegaly, which he reports is known. Pulmonary vascular congestion on admission. In positive balance. Blood pressure is improved. Renal function improving. Consider small dose of Lasix if persists. Reports history of asthma for which he uses occasional inhaler. Reports history of intermittent wheeze as well as long history of respiratory difficulty during playing sports. Appears hypoxia is multifactorial secondary pulmonary vascular congestion, tracheal compression, possibly occasional hypopnea. Would benefit from PFT after discharge. Low probability of COVID-19 given he was tested presurgically, and with reported negative test during hospitalization at [facility] 01/21. Status: Acute (7) Acute kidney injury superimposed on CKD: Improving. Avoid nephrotoxins. Suspected secondary to Toradol he states was receiving during prior hospitalization. Avoid NSAIDs. Monitor blood pressures. Avoid hypotension. reports he has stage III kidney disease. Avoid fluid challenge at this time as appears to be fluid overloaded with pulmonary vascular congestion, possibly after receiving IV fluids, infusions during the recent hospitalization. Status: Acute (8) Troponin level elevated: Baseline 31, 2-hour 22.12, 6-hour 25.97. Denies chest pain. EKG with sinus tachycardia. Does not appear to have acute VT at this time. Suspect this is demand ischemia related, however, may be in the setting of underlying coronary disease, and he will benefit from all risks education at some point when he has recovered somewhat. Status: Acute (9) Hyponatremia: Resolved. Avoid sodium restriction. 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 As above. This is likely chronic, but appears to be contributing to his acute issues. Discussed with patient and his . 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 Caution with pain medication. Diabetes Asthma GERD History of hepatitis HTN HLD Current smoker Other chronic conditions noted Attestations Medical Necessity Statement*: Patient requires hospitalization for concerns for posterior cervical wound dehiscence, CSF leak Coding Level of Care Code Acute Sales Representative Groceries for Chg Fwd Diagnoses Wound dehiscence T81.30XA S/P cervical spinal fusion Z98.1 Sinus tachycardia R00.0 Neutrophilic leukocytosis D72.9 Respiratory acidosis E87.2 Hypoxia R09.02 Acute kidney injury superimposed on CKD N17.9; N18.9 Troponin level elevated R77.8 Hyponatremia E87.1 Compression of trachea J39.8 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
--- NOTE | 2021-01-25 17:11 | PC.RESP ---
Smoking Cessation information sent to patient.
--- NOTE | 2021-01-25 17:39 | PC.NURSE ---
1630 patient call to nurses station reporting 10/10 pain patient sitting up in bed rocking and moaning FLACC scale 10 1700 after new iv access obtained patient given dilaudid 1mg IVP nurse observed patient talking telling jokes and laughing with nurse and spouse at bedside patient no longer grimacing moaning or rocking Flacc 12/30 1730 patient calling nurse station with continued reports of pain DIRECTOR VISUAL reported to this nurse patient patient is about in tears with pain this nurse to bedside to assess patient and upon nurse reaching door patient was heard talking on phone with grand daughter upon entering room patient found with C collar half removed patient educated on the importance of following providers instructions to leave C collar in place patient began to grimace and moan reporting he has so much pain he had to loosen it educated patient on frequency of pain medication and reminded him he was just given dilaudid 30 min prior patient verbalized understanding however continues to report 8/[address] peguero notified of events telephone orders obtained to give and additional times 1 order of dilaudid 1mg IVP
[2021-01-25] MEDS: BuSPIRONE 10 mg Tablet PO (18:06)
[2021-01-25] MEDS: topiramate 25 mg Tablet 50 MG PO (18:07)
[2021-01-25] MEDS: pantoprazole DR 40 mg Tablet PO (18:07)
[2021-01-25] MEDS: docusate sodium 100 mg Capsule PO (18:07)
[2021-01-25] MEDS: quetiapine 25 mg Tablet PO (18:07)
--- NOTE | 2021-01-25 18:11 | ANE.PACU2 ---
Inpatient post-anesthesia follow up: Airway intact: Yes Vital signs: Temperature 98.1 F Pulse Rate [Monito r] 128 Pulse Rate 97 Respiratory Rate 22 Blood Pressure [Le ft Arm] 125/85 Blood Pressure 117/86 Pulse Oximetry 99 Oxygen Delivery Me thod Room Air Oxygen Flow Rate 8 Fraction of Inspir ed Oxygen Hydration adequate: Yes Nausea and vomiting: No Pain level: 3 Mental status: Baseline
[2021-01-25] MEDS: lactated ringers 1,000 ML 90 ML IV (19:36)
[2021-01-25] MEDS: BuSPIRONE 10 mg Tablet 15 MG PO (20:26)
[2021-01-25] MEDS: gabapentin 300 mg Capsule PO (20:27)
[2021-01-25] MEDS: insulin glargine 100 units/1 mL 20 UNIT SUBCUT (21:28)
[2021-01-25 22:20] LABS: Glucose Point of Care 229 mg/dL (70-110)
[2021-01-26] VITALS (59 sets, daily range): BP systolic 104–107; BP diastolic 64–73; PULSE 82–118; RESP 13–37; TEMP 36.6–36.8; O2SAT 90–100
[2021-01-26] MEDS: HYDROmorphone 1 mg/mL INJ 1 mL IVP ×3 (01:54→05:53)
--- NOTE | 2021-01-26 03:52 | CTR_ITS ---
PROCEDURE INFORMATION: Exam: CT Neck With Contrast Exam date and time: 01/26/2021 4:01 AM Age: 45 years old Clinical indication: Prior surgery; Surgery type: Cervicothoracic fusion. ; Patient HX: Persistent neck pain S/P posterior cervical dehiscence on 01/25/2021. TECHNIQUE: Imaging protocol: Computed tomography images of the neck with intravenous contrast. Radiation optimization: All CT scans at this facility use at least one of these dose optimization techniques: automated exposure control; mA and/or kV adjustment per patient size (includes targeted exams where dose is matched to clinical indication); or iterative reconstruction. Contrast material: OMNI 300; Contrast volume: 75 ml; Contrast route: INTRAVENOUS (IV); COMPARISON: CT neck wo con [id number] 12/09/2019 12:48 PM RADIATION DOSE METRICS: Total DLP (mGy-cm): 494.06 FINDINGS: Paranasal sinuses: No organized fluid collection. Nasopharynx: Unremarkable. Dental: Portions of the central canal are obscured by streak artifact. However, no central canal gas . Oropharynx: Unremarkable. No significant tonsillar enlargement. Hypopharynx: Unremarkable. Larynx: Unremarkable. Normal epiglottis. Retropharyngeal space: Unremarkable. Submandibular/Parotid glands: Normal. Glands are normal in size. Thyroid: Normal. No enlarged or calcified nodules. Lymph nodes: Unremarkable. No lymphadenopathy. Trachea: Visualized trachea is unremarkable. Lungs: Unremarkable as visualized. Bones/joints: There is ACDF at C3-C4. Posterior fusion hardware present bilaterally C2-T2. Laminectomy has been performed C3-C7. 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 Soft tissues: Small amounts of soft tissue gas and edema are present in the posterior neck. CT/CT neck w con* [id number] IMPRESSION: 1. Soft tissue gas and edema without organized fluid collection, consistent with the patient's history of postsurgical cervical dehiscence. 2. Portions of the central canal are obscured by streak artifact. However, no central canal gas . Radiation Dose CTDIVOL = (mGy): DLP = 494.06 (mGy-cm)
--- NOTE | 2021-01-26 03:52 | CTR_ITS ---
PROCEDURE INFORMATION: Exam: CT Cervical Spine With Contrast Exam date and time: 01/26/2021 4:01 AM Age: 45 years old Clinical indication: Prior surgery; Surgery type: Cervicothoracic fusion; Patient HX: Persistent neck pain S/P posterior cervical dehiscence on 01/25/2021. TECHNIQUE: Imaging protocol: Computed tomography images of the cervical spine with intravenous contrast. Radiation optimization: All CT scans at this facility use at least one of these dose optimization techniques: automated exposure control; mA and/or kV adjustment per patient size (includes targeted exams where dose is matched to clinical indication); or iterative reconstruction. Contrast material: OMNI 300; Contrast volume: 75 ml; Contrast route: INTRAVENOUS (IV); COMPARISON: CT cervical spin wo con* [id number] 12/03/2020 6:35 PM RADIATION DOSE METRICS: Total DLP (mGy-cm): 857.41 FINDINGS: Bones/joints: Intact anterior cervical fixation are were C3-C4. Intact posterior cervical fixation hardware C2-T2. Bony fusion of the C4-C5 and C5-C6 levels. The dens is intact. The lateral masses of C1 are symmetric. Laminectomies have been performed from C3-C7. No fracture. Discs/Spinal canal/Neural foramina: Severe degenerative disc space narrowing at C6-C7 and C7-T1. Craniocervical articulation is normal. Atlantodental interval and prevertebral soft tissues are normal. Lungs: Lung apices are normal. Soft tissues: There is dorsal paraspinal soft tissue gas and edema. However, no organized, peripherally enhancing fluid collection. CT/CT cervical spine w con [id number] IMPRESSION: Edema and gas in the dorsal soft tissues, expected given the history. However, no organized fluid collection/abscess. Radiation Dose CTDIVOL = (mGy): DLP = 857.41 (mGy-cm)
[2021-01-26] MEDS: iohexol 300 mg/mL 100 mL Btl IV ×2 (04:04→04:05)
[2021-01-26] MEDS: cyclobenzaprine 10 mg Tablet PO (04:07)
[2021-01-26] MEDS: tizanidine 4 mg Tablet PO (04:07)
--- NOTE | 2021-01-26 04:31 | PC.NURSE ---
At approximately 0300 this patient called out via the call light and asked for help. Upon my arrival to this patient's room the patient had removed all of his telemetry and had ripped his iv out of his left AC. Pt was writhing in pain stating that his neck was cramping up on him. He was holding his right cervical area and just rocking back and forth. Dr. Gallego was notified and requested to come to this patient's room. New IV started in the same location as before and Dr. Gallego arrived shortly after the iv was reinserted. Order received for Dilaudid 1mg IV push once as well as Ketorlac 15mg iv push. Order placed for stat ct cervical spine. Pt given the ordered medication as well as his zanaflex and flexaril. Pt was able to transfer to the wheelchair and was transported to CT and back without incident.
[2021-01-26] MEDS: ketorolac 30 mg/mL INJ 15 MG IVP (04:45)
[2021-01-26] MEDS: mupirocin oint 22 gm 1 APPLIC TOPICAL (04:47)
[2021-01-26 04:52] LABS: Basophils % 0.1 %; Hematocrit 31.3 % (42.0-52.0); Hemoglobin 9.6 g/dL (11.7-16.6); Lymphocytes % 8.9 %; Mean Corpuscular HGB Conc 30.7 g/dL (30.0-36.0); Mean Corpuscular Hemoglobin 27.1 pg (28.0-34.0); Mean Corpuscular Volume 88.4 fL (80-94); Mean Platelet Volume 9.9 fL (7.4-10.4); Monocytes # 1.4 10^3/uL (0.2-0.9); Monocytes % 13.2 %; Neutrophils # 8.34 10^3/uL (1.8-7.7); Neutrophils % 76.9 %; Nucleated Red Blood Cells % 0 %; Platelet Count 322 10^3/cmm (130-400); Red Blood Count 3.54 10^6/uL (4.1-5.3); Red Cell Distribution Width 13.7 % (12.1-15.1); White Blood Count 10.9 10^3/uL (4.0-10.0)
[2021-01-26 05:17] LABS: Alanine Aminotransferase 18 U/L (0-41); Albumin Level 3.9 g/dL (3.5-5.2); Alkaline Phosphatase 62 IU/L (40-130); Aspartate Amino Transferase 27 U/L (0-40); Blood Urea Nitrogen 12 mg/dL (6-20); C Reactive Protein 75.9 mg/L (0.0-4.9); Carbon Dioxide 20 mmol/L (22-29); Chloride 104 mmol/L (98-107); Globulin 3.3 g/dL (1.3-4.6); Glomerular Filtration Rate 91.7 mL/min (90-130); Glucose 183 mg/dL (65-115); Magnesium 1.7 mg/dL (1.7-2.3); Osmolality Calculated 286 mOsm/kg (285-295); Phosphorus 2.7 mg/dL (2.5-4.5); Sodium 136 mmol/L (136-145); Total Bilirubin 0.3 mg/dL (0.15-1.2); Total Protein 7.2 g/dL (6.6-8.7)
[2021-01-26 05:18] LABS: Procalcitonin 0.28 ng/mL (0-0.5)
[2021-01-26] MEDS: enoxaparin 40 mg/0.4 mL Syringe SUBCUT (05:57)
[2021-01-26] MEDS: metoprolol succinate ER (24 HR) 50 mg Tablet 25 MG PO (06:11)
[2021-01-26] MEDS: metformin XR 500 MG Tablet PO (06:14)
[2021-01-26 07:20] LABS: Glucose Point of Care 202 mg/dL (70-110)
--- NOTE | 2021-01-26 07:22 | PM.PN ---
Subjective Subjective: Interval history: Episode of muscle spasm last night. He went for a CT scan. All the hardware and screws look to be in appropriate position. No evidence of any fluid collection. At this point this morning patient's pain is controlled dressings have ripped off wound is clean dry intact no evidence of any drainage. Intraoperatively patient did not have any evidence of a CSF leak. It just looked like patient had ripped apart multiple areas of the suturing likely from picking up the tote . There did not have any evidence of any infection at that time as well. I did take cultures intraoperatively just in case Vitals/I&O/Wt Last Vital Signs Temp 97.8 F 01/26/21 07:08 Pulse 92 01/26/21 07:08 Resp 17 01/26/21 07:08 BP 106/64 01/26/21 07:08 Pulse Ox 99 01/26/21 07:08 01/25/21 01/26/21 01/26/21 22:59 06:59 14:59 Intake Total 1271.417 / 1366.000 590 / 1956.000 Output Total 550 / 550 Balance 721.417 / 816.000 590 / 1406.000 Weight last 48 hrs Weight 195 lb Weight 196 lb Physical Exam Narrative: EXAM NARRATIVE: On physical exam patient is 5 5 strength in upper extremities and lower extremities. Is skin incision looks to be clean dry and intact. His dressings have ripped off. Data : 01/26/21 04:10 01/26/21 04:10 Micro: Microbiology 01/23/21 15:40 Wound Culture - Preliminary Neck A&P Assessment and plan (1) Wound dehiscence: At this point is postop day #1 patient's wound looks clean dry and intact. I do not have any issues with the patient being discharged. Status: Acute Attestations Medical Necessity Statement*: Medical evaluation Coding Level of Care Code Acute Manager Support Services for Marcos Scott Diagnoses Wound dehiscence T81.30XA
--- NOTE | 2021-01-26 08:02 | PC.NURSE ---
Pt presents sitting up in bed watching tv. Pt very anxious grabbing at wound drsg, IV line and pushing buttons on IV pump. Resp even and non labored no distress noted. Pt c/o pain in surgical sight 01/30. Call light in reach. Will continue to monitor.
[2021-01-26] MEDS: BuSPIRONE 10 mg Tablet PO (09:23)
[2021-01-26] MEDS: BuSPIRONE 10 mg Tablet 15 MG PO (09:24)
[2021-01-26] MEDS: topiramate 25 mg Tablet 50 MG PO (09:24)
[2021-01-26] MEDS: gabapentin 300 mg Capsule PO (09:25)
[2021-01-26] MEDS: doxycycline 100 mg Tablet PO (09:26)
[2021-01-26] MEDS: docusate sodium 100 mg Capsule PO (09:27)
[2021-01-26] MEDS: pantoprazole DR 40 mg Tablet PO (09:27)
--- NOTE | 2021-01-26 10:55 | P.DS_ITS ---
Discharge Providers Date of Admission: 01/22/21 17:28 Date of Discharge: January 26, 2021 Attending Provider at Admission: Archie Espinosa Attending Provider at Discharge: Cliff Bruce MD Primary Care Provider: MIKEY Lucero Diagnoses at Discharge Discharge Diagnosis (1) Wound dehiscence: Status: Acute Reason for Visit Reason for Visit: neck/back surgery on mon, stitches coming apart Hospital Course Hospital Course This is a 45-year-old male with a past medical history of asthma, history of collapsed lung, history of prior neck surgery, degenerative disc disease, CSI of upper back 3 to 4 weeks ago, GERD, hepatitis, hyperlipidemia, hypertension, type 2 diabetes, recent history of C2 T12 posterior spinal fusion on 01/20 who presents to [facility] for concerns for wound dehiscence and hypoxia For his wound dehiscence, Dr. Mitchell was consulted, he he was placed on antibiotic therapy, CT scan shows all the hardware and screws in appropriate position, no significant fluid collection. Patient underwent surgical exploration, down to the level of the hardware, no evidence of CSF leak, wound was irrigated, cultures were taken. So far cultures have been negative for 1 day, blood cultures have been unremarkable. Follow-up cultures as outpatient. I have discharged the patient on 5 remaining days of doxycycline. Patient continued to have neck pain throughout his hospitalization, requiring doses of fentanyl. Patient clinically seems to have a lot of paracervical spinal tenderness, muscle spasms, I have discharged him on Soma to be used sparingly for muscle spasms. Follow-up with Dr. Mitchell as outpatient. For his hypoxia, multifactorial related to intermittent opiate use, tracheal compression from a left subclavian, asthma, pulmonary vascular congestion. Patient recently had a negative Covid test. Remained afebrile throughout his hospitalization, no significant episodes of shortness of breath with exertion, no shortness of breath complaints, remained on room air 48 hours before discharge. Patient was advised to follow with primary care provider for consideration of PFT and, sleep study Physical Exam Const: COMMON NORMALS: no acute distress and patient oriented x3 HENMT: COMMON NORMALS: normocephalic HEAD & SCALP: normocephalic Neck/C-Spine: COMMON NORMALS: no JVD GENERAL: Yes normal visual inspection CERVICAL SPINE: Yes cervical ROM normal, No Cervical spine tenderness, Yes Paracervical muscle tenderness and Yes Trapezius muscle tenderness OTHER: Surgical site looks clean and dry Resp: COMMON NORMALS: normal respiratory effort, No retractions, No use of accessory muscles and clear to auscultation bilaterally AUSCULTATION: clear to auscultation bilaterally Cardio: COMMON NORMALS: no JVD, regular rate, regular rhythm, S1 normal heart sound present and S2 normal heart sound present RATE: regular rate RHYTHM: regular rhythm HEART SOUNDS: S1 normal heart sound present and S2 normal heart sound present GI: COMMON NORMALS: Normal to inspection, nondistended, normoactive bowel sounds present, Soft to palpation, non-tender, No hepatosplenomegaly present, no masses and no bruits PALPATION: Yes Soft to palpation and Yes No hepatosplenomegaly present Extremity: COMMON NORMALS: capillary refill normal, no clubbing, cyanosis or edema, no calf tenderness and no pedal edema Neuro: COMMON NORMALS: patient oriented x3 Psych: COMMON NORMALS: mental status grossly normal Discharge Data Data Completed and Pending: Completed Studies During Hospitalization Category Date Time Status CT angio chest PE protcl [id number] Stat Cat Scan 01/22/21 14:[address] cervical spine w con [id number] Stat Cat Scan 01/26/21 03:[address] neck w con* [id number] Stat Cat Scan 01/26/21 03:52 Completed XR chest 1V so ble [id number] Stat Exams 01/22/21 13:47 Completed Pending at discharge Category Date Time Status Anaerobic Culture Routine Lab 01/25/21 13:25 Results Blood Culture Sta t Lab 01/22/21 19:13 Results C Reactive Protei n AM LABS Lab 01/27/21 04:00 Ordered C Reactive Protei n AM LABS Lab 01/28/21 04:00 Ordered Complete Blood Co unt w/Auto AM LABS Lab 01/27/21 04:00 Ordered Complete Blood Co unt w/Auto AM LABS Lab 01/28/21 04:00 Ordered Comprehensive Met abolic Panel AM LA BS Lab 01/27/21 04:00 Ordered Comprehensive Met abolic Panel AM LA BS Lab 01/28/21 04:00 Ordered Magnesium AM LABS Lab 01/27/21 04:00 Ordered Magnesium AM LABS Lab 01/28/21 04:00 Ordered Miscellaneous Anaya t Routine Lab 01/22/21 22:11 Received Phosphorus AM LAB S Lab 01/27/21 04:00 Ordered Phosphorus AM LAB S Lab 01/28/21 04:00 Ordered Procalcitonin AM LABS Lab 01/27/21 04:00 Ordered Procalcitonin AM LABS Lab 01/28/21 04:00 Ordered Wound Culture and Gram Stain Routin e Lab 01/25/21 13:25 Results Labs from last 24 hours 01/26/21 01/26/21 01/26/21 06:41 04:10 04:10 WBC RBC Hgb Hct MCV MCH MCHC RDW Plt Count MPV Neut % (Auto) Lymph % (Auto) [place] % (Auto) Eos % (Auto) Baso % (Auto) Neut # (Auto) Lymph # (Auto) [place] # (Auto) Eos # (Auto) Baso # (Auto) Nucleated RBC % (a uto) Nucleated RBCs # Sodium 136 Potassium 4.0 Chloride 104 Carbon Dioxide 20 L Anion Gap 16.0 BUN 12 Creatinine 0.9 GFR Calculation 91.7 Glucose 183 H POC Glucose 202 H Calculated Osmolal ity 286 Calcium 9.0 Phosphorus 2.7 Magnesium 1.7 Total Bilirubin 0.3 AST 27 ALT 18 Alkaline Phosphata se 62 C-Reactive Protein 75.9 H Total Protein 7.2 Albumin 3.9 Globulin 3.3 Procalcitonin 0.28 01/26/21 01/25/21 01/25/21 04:10 19:48 16:31 WBC 10.9 H RBC 3.54 L Hgb 9.6 L Hct 31.3 L MCV 88.4 MCH 27.1 L MCHC 30.7 RDW 13.7 Plt Count 322 MPV 9.9 Neut % (Auto) 76.9 Lymph % (Auto) 8.9 [place] % (Auto) 13.2 Eos % (Auto) 0.0 Baso % (Auto) 0.1 Neut # (Auto) 8.34 H Lymph # (Auto) 1.0 [place] # (Auto) 1.4 H Eos # (Auto) 0.0 Baso # (Auto) 0.0 Nucleated RBC % (a uto) 0 Nucleated RBCs # 0.0 Sodium Potassium Chloride Carbon Dioxide Anion Gap BUN Creatinine GFR Calculation Glucose POC Glucose 229 H 162 H Calculated Osmolal ity Calcium Phosphorus Magnesium Total Bilirubin AST ALT Alkaline Phosphata se C-Reactive Protein Total Protein Albumin Globulin Procalcitonin 01/25/21 11:05 WBC RBC Hgb Hct MCV MCH MCHC RDW Plt Count MPV Neut % (Auto) Lymph % (Auto) [place] % (Auto) Eos % (Auto) Baso % (Auto) Neut # (Auto) Lymph # (Auto) [place] # (Auto) Eos # (Auto) Baso # (Auto) Nucleated RBC % (a uto) Nucleated RBCs # Sodium Potassium Chloride Carbon Dioxide Anion Gap BUN Creatinine GFR Calculation Glucose POC Glucose 143 H Calculated Osmolal ity Calcium Phosphorus Magnesium Total Bilirubin AST ALT Alkaline Phosphata se C-Reactive Protein Total Protein Albumin Globulin Procalcitonin Vitals: Last Vital Signs Temp 98.3 F 01/26/21 10:32 Pulse 84 01/26/21 10:32 Resp 20 H 01/26/21 10:32 BP 107/67 01/26/21 10:32 Pulse Ox 100 01/26/21 10:32 Discharge Plan Discharge Patient Disposition: Home Condition: Stable Prescriptions: New doxycycline monohydrate 100 mg Tablet 100 mg PO BID 5 Days Qty: 10 RF: 0 Soma 350 mg tablet 350 mg PO BID PRN (Reason: muscle pain) 7 Days Qty: 14 RF: 0 Continued quetiapine [Seroquel] 25 mg tablet 100 mg PO QPM RF: 0 (DME) Bone Stimulator [id number] See Rx Instructions .Route .MEDSUPPLY Qty: 1 RF: 0 albuterol sulfate [ProAir HFA] 90 mcg/actuation HFA aerosol inhaler 1 - 2 puff INHALATION Q6H PRN (Reason: shortness of breath or wheezing) 30 Days Qty: 18 RF: 2 dicyclomine 10 mg capsule 10 mg PO QID PRN (Reason: abdominal discomfort) 30 Days Qty: 60 RF: 5 topiramate [Topamax] 50 mg tablet 50 mg PO BID Qty: 60 RF: 0 ondansetron HCl 4 mg tablet 4 mg PO Q6H PRN (Reason: nausea) Qty: 30 RF: 0 oxycodone 10 mg tablet 10 mg PO Q4H PRN (Reason: pain) 7 Days Qty: 60 RF: 0 metoprolol succinate 50 mg tablet extended release 24 hr 50 mg PO QAM RF: 0 Lantus Solostar U-100 Insulin 100 unit/mL (3 mL) insulin pen 30 unit SUBCUT BEDTIME RF: 0 sumatriptan succinate 50 mg tablet 50 mg PO PRN RF: 0 omeprazole 20 mg capsule,delayed release(DR/EC) 20 mg PO BID RF: 0 Viibryd 40 mg tablet 40 mg PO QAM RF: 0 gabapentin 300 mg capsule 300 mg PO TID RF: 0 metformin 500 mg tablet extended release 24 hr 500 mg PO QAM RF: 0 Farxiga 10 mg tablet 10 mg PO QAM RF: 0 BuSpar 15 mg Tablet 15 mg PO TID RF: 0 Discontinued tizanidine [Zanaflex] 4 mg tablet 4 mg PO Q8H PRN (Reason: muscle spasticity) RF: 0 cyclobenzaprine 10 mg tablet 10 mg PO TID PRN (Reason: Muscle Spasm) RF: 0 Discharge Orders: Discharge Order (Routine); Ordered 01/26/21 Ordered By: Cliff Bruce Referrals: Darius Mitchell DO [Physician] - 1 week Ofe Paula FNP [Primary Care Provider] - (Please follow-up with Stephanie JENSEN on February 01 at 10:00A.M. If you have any questions or need to reschedule. Please call ) Discharge Diet: Regular Discharge Activity: Resume usual activity Patient Instructions: Carisoprodol (By mouth), Doxycycline (By mouth) Activity Restrictions/Additional Instructions: -Please use Soma sparingly, please do not use with narcotics, do not drive or operate heavy machinery while taking Soma -Take antibiotics as prescribed -Follow-up with primary care provider in 1 week -Follow-up with Dr. Mitchell Discharge Attestations Time Spent in Discharge Care*: less than 30 min Quality Metrics Clinical Quality Measures During this hospital stay, did patient experience: None Coding Level of Care Code Acute Chg FW DC note Diagnoses Wound dehiscence T81.30XA
[2021-01-26 11:13] LABS: Glucose Point of Care 379 mg/dL (70-110)
--- NOTE | 2021-01-26 12:25 | PC.NURSE ---
Pt discharged home. Pts IV removed no redness or swelling noted. Pts discharge instructions given along with prescriptions and follow up appointments. Pts home medications inventoried and witnessed by second nurse. Home medications returned to pt and medication inventory sheet signed by pt. Pt had no c/o pain or discomfort at the time of discharge. Pt transferred out via wheelchair accompanied by staff.
== END 2021-01-26 12:22 | disposition home or self-care (01) | DRG 908 ==
LOC: ER 17:50 → ICU 19:20 → MEDSURG 01-23 12:55 → CSU 01-23 21:34
PROVIDERS: Orthopaedic Surgery; Admitting Provider Internal Medicine; Emergency Provider Emergency Medicine; PCP Registered Nurse; Visit Provider Family Medicine
PROC: 0JQ70ZZ Repair Back Subcutaneous Tissue and Fascia, Open Approach (ICD-10-PCS; principal; 2021-01-25 13:45)
DX: T81.31XA Disruption of external operation (surgical) wound, not elsewhere classified, initial encounter (principal); E87.2 Acidosis; N17.9 Acute kidney failure, unspecified; E87.1 Hypo-osmolality and hyponatremia; Q25.47 Right aortic arch; R09.02 Hypoxemia; R00.0 Tachycardia, unspecified; D72.828 Other elevated white blood cell count; R77.8 Other specified abnormalities of plasma proteins; J39.8 Other specified diseases of upper respiratory tract; M54.2 Cervicalgia; I12.9 Hypertensive chronic kidney disease with stage 1 through stage 4 chronic kidney disease, or unspecified chronic kidney disease; E11.22 Type 2 diabetes mellitus with diabetic chronic kidney disease; N18.30 Chronic kidney disease, stage 3 unspecified; J45.909 Unspecified asthma, uncomplicated; K21.9 Gastro-esophageal reflux disease without esophagitis; E78.5 Hyperlipidemia, unspecified; F98.8 Other specified behavioral and emotional disorders with onset usually occurring in childhood and adolescence; F17.210 Nicotine dependence, cigarettes, uncomplicated; Z79.891 Long term (current) use of opiate analgesic; Z79.4 Long term (current) use of insulin; Z98.1 Arthrodesis status; Z87.11 Personal history of peptic ulcer disease; Z91.19 Patient's noncompliance with other medical treatment and regimen; M62.830 Muscle spasm of back; Y83.8 Other surgical procedures as the cause of abnormal reaction of the patient, or of later complication, without mention of misadventure at the time of the procedure
CPT/HCPCS: 36415; 36416; 36600; 70491; 71045; 71275; 72126; 80053; 80306; 82803; 82962; 83605; 83735; 84100; 84145; 84484; 85025; 86140; 86334; 86335; 87040; 87070; 87075; 87205; 87641; 93005; 94664; 96365; 96372; 96375; 97161; 99285; J0690; J1100; J1170; J1650; J1815 ×2; J1885; J2250; J2405; J2704; J3010; J3480; J3490; Q9967

== ENCOUNTER 2021-02-07 21:19 | Emergency (ER) | payer MEDICARE, MEDICAID, SELFPAY ==
[2021-02-07 21:34] VITALS: BP 129/82; PULSE 102; RESP 18; TEMP 36.2; O2SAT 98; BMI 27.3
[2021-02-07 22:56] VITALS: BP 122/94; PULSE 108; RESP 18; O2SAT 96
--- NOTE | 2021-02-07 22:56 | ED_ITS ---
HPI - Neck Pain/Injury General: Chief Complaint: Neck Pain/Injury Stated Complaint: STATES STITCHES POPPED OPEN AND SITE IS BLEEDING Time Seen by Provider: 02/07/21 22:31 Source: patient Mode of arrival: ambulatory Limitations: no limitations History of Present Illness: HPI Narrative: 45-year-old male patient presents to the emergency department with surgical incision concern. He states was at home when he noted bleeding to his surgical incision of the upper back. Recent surgery completed by Dr. Mitchell on 01/28/2021. He reports pain has not changed, continues to experience muscle spasms which have not changed. He denies fever chills. He reports itching at the incision site and may have scratched the surgical wound. He is concerned sutures may have dislodged. He reports c-collar is uncomfortable, he reports c-collar is not always in place, does not always wear it. Place: home Associated symptoms: Reports no associated symptoms; Denies headache(s) or nausea Treatments prior to arrival: none Review of Systems General: Reports: 10 or more systems reviewed and unremarkable except in HPI and below Const: Denies: fever(s), chills or diaphoresis Eyes: Denies: blurry vision or eye redness ENMT: Denies: throat pain, dental pain or disequilibrium Card: Denies: chest pain, palpitations or irregular heart rhythm Resp: Denies: dyspnea, productive cough, non-productive cough or wheezing GI: Denies: abdominal pain, nausea or vomiting : Denies: dysuria Musc: Reports: neck pain; Denies: back pain, extremity pain, joint pain, joint swelling, joint stiffness, muscle cramps or muscle weakness Skin/Breast: Reports: surgical incision; Denies: rash, pruritus, erythema, skin tenderness or changing lesions Neuro: Denies: headache(s), weakness in extremities or behavioral changes Psych: Denies: anxiety, depression, sleeping more or hopelessness Nba/Lymph: Denies: easy bruising PFSH ED PFSH: Medical History ADD (attention deficit disorder) Angina decubitus Asthma Carpal tunnel syndrome Chest pain Chronic pain syndrome GERD (gastroesophageal reflux disease) Hematuria History of hepatitis Hyperlipidemia Hypertension Irritable bowel syndrome Peptic ulcer disease Pneumothorax Seasonal allergies Staphylococcal infection of skin Tobacco use Type 2 diabetes mellitus Surgical History H/O chest tube placement H/O neck surgery H/O wrist surgery R History of back surgery History of carpal tunnel surgery L Family History Family/Other No problems noted. Other Adopted Social History Smoking and tobacco status: current some day smoker cigarettes Packs smoked per day: 0 [ Other cigarette details: Says has been cutting down ] and smokeless tobacco Quit status (tobacco): considering quitting Second hand smoke exposure: Yes Smoking risk assessment/counseling performed?: No Alcohol intake: former Desire information about alcohol rehabilitation?: No Lives independently: Yes Household members: spouse Marital status: Current occupational status: unemployed History of recent travel: No Current gender identity: Male Physical Exam Const: COMMON NORMALS: no acute distress, patient oriented x3, healthy appearing, alert and well nourished EXAM LIMITATIONS: no altered mental status and no physical limitations GENERAL APPEARANCE: cooperative, comfortable, well kempt, well developed and well hydrated; not anxious, not combative and not ill appearing NUTRITIONAL APPEARANCE: overweight ORIENTATION/CONSCIOUSNESS: Yes awake, Yes oriented to person, Yes oriented to place and Yes oriented to time HENMT: COMMON NORMALS: normocephalic, atraumatic, Normal external nose present and moist oral mucous membranes HEAD & SCALP: normocephalic, atraumatic and Acrocyanosis present FACE & SINUS: normal facial exam, face symmetric and Acrocyanosis present NOSE: Normal external nose present THROAT: posterior oropharynx normal, tonsils normal and uvula midline Eye: COMMON NORMALS: Equal, round and reactive pupils present and EOMs intact bilaterally GENERAL EYE: appearance normal, both eyes and all related structures PUPIL: Yes Equal, round and reactive pupils present Neck/C-Spine: COMMON NORMALS: no lymphadenopathy, supple and no meningeal signs GENERAL: Yes normal visual inspection, Yes trachea midline, No anterior neck swelling and No lymphadenopathy CERVICAL SPINE: Yes cervical ROM normal, No Cervical spine tenderness, No Paracervical muscle tenderness and No Trapezius muscle tenderness OTHER: palpation of the cervical midline incision without tenderness or drainage Lymph: LYMPHATIC: no lymphadenopathy noted Chest: COMMONS NORMALS: normal inspection of the chest and normal palpation of entire chest wall Resp: COMMON NORMALS: normal respiratory effort, No retractions, No use of accessory muscles and clear to auscultation bilaterally EFFORT & INSPECTION: Yes able to speak in complete sentences AUSCULTATION: clear to auscultation bilaterally Cardio: COMMON NORMALS: regular rate, regular rhythm, S1 normal heart sound present, S2 normal heart sound present and Peripheral pulses 2+ throughout RATE: regular rate RHYTHM: regular rhythm HEART SOUNDS: S1 normal heart sound present and S2 normal heart sound present PERIPHERAL PULSES: Peripheral pulses 2+ throughout OTHER: apical rate 98 GI: COMMON NORMALS: Normal to inspection, nondistended, normoactive bowel sounds present, Soft to palpation and non-tender INSPECTION: Yes normal to inspection PALPATION: Yes Soft to palpation : COMMON NORMALS: Yes no CVA tenderness BLADDER/KIDNEY EXAM: Yes no CVA tenderness Back/Pelvis: COMMON NORMALS: no CVA tenderness and thoracic and lumbar spine normal to inspection Extremity: COMMON NORMALS: normal to inspection, full ROM, capillary refill normal and no pedal edema GENERAL: Yes normal exam except as noted Neuro: COMMON NORMALS: patient oriented x3 and no focal motor deficits SENSORIUM/ORIENTATION: Yes alert, Yes oriented to person, Yes oriented to place and Yes oriented to time MENINGEAL SIGNS: Yes no meningeal signs GAIT: Yes Normal gait present MOTOR EXAM: 5/5 motor strength present throughout Psych: COMMON NORMALS: mental status grossly normal, Normal thought process present and cooperative APPEARANCE: Yes well kempt ACTIVITY/MOTOR BEHAVIOR: Yes appropriate eye contact THOUGHT PROCESS: Normal thought process present Skin: COMMON NORMALS: no rashes or lesions noted, turgor normal and no petechiae NARRATIVE SKIN EXAM: scattered abrasions of the torso and back noted, from patient manipulation, scratching. No signs and symptoms of infe ction. GENERAL SKIN EXAM: no rashes or lesions noted, elasticity normal and turgor normal RASHES: no rashes WOUNDS: Yes surgical site (Vertical incision cervical and upper thoracic, sutures intact, ) Details: drainage (none), margins Details: well approximated, no odor and sutures Details: in place HAIR: normal NAILS: normal OTHER: Incision nontender, incision was palpated to ensure no drainage was noted, no drainage or bleeding noted to the area, slight erythema to the suture line, regranulation tissue present, sp ouse reports no change of skin appearance to the surgical site. Sterile Telfa pad was placed to the incision along with silk tape. C-collar was then placed on the patient. Course Vital Signs: Vital signs: Vital Signs Temperature 97.1 F L 02/07/21 21:34 Pulse Rate 108 H 02/07/21 22:56 Respiratory Rate 18 02/07/21 22:56 Blood Pressure 122/94 02/07/21 22:56 Pulse Oximetry 96 02/07/21 22:56 Discharge Plan Discharge Patient Disposition: Home Clinical Impression: Healing of postoperative wound, Visit for wound check Condition: Stable Prescriptions: No Action quetiapine [Seroquel] 25 mg tablet 100 mg PO QPM RF: 0 (DME) Bone Stimulator E7048 See Rx Instructions .Route .MEDSUPPLY Qty: 1 RF: 0 albuterol sulfate [ProAir HFA] 90 mcg/actuation HFA aerosol inhaler 1 - 2 puff INHALATION Q6H PRN (Reason: shortness of breath or wheezing) 30 Days Qty: 18 RF: 2 dicyclomine 10 mg capsule 10 mg PO QID PRN (Reason: abdominal discomfort) 30 Days Qty: 60 RF: 5 oxycodone [Roxicodone] 5 mg tablet 5 mg PO Q4H PRN (Reason: pain) 7 Days Qty: 60 RF: 0 topiramate [Topamax] 50 mg tablet 50 mg PO BID Qty: 60 RF: 0 ondansetron HCl 4 mg tablet 4 mg PO Q6H PRN (Reason: nausea) Qty: 30 RF: 0 insulin glargine [Lantus Solostar U-100 Insulin] 100 unit/mL (3 mL) insulin pen See Rx Instructions .ROUTE .COMPLEX Qty: 9 RF: 0 gabapentin 300 mg capsule 300 mg PO TID Qty: 90 RF: 0 metaxalone 400 mg tablet 800 mg PO TID Qty: 90 RF: 0 metoprolol succinate 50 mg tablet extended release 24 hr 50 mg PO QAM RF: 0 sumatriptan succinate 50 mg tablet 50 mg PO PRN RF: 0 omeprazole 20 mg capsule,delayed release(DR/EC) 20 mg PO BID RF: 0 Viibryd 40 mg tablet 40 mg PO QAM RF: 0 metformin 500 mg tablet extended release 24 hr 500 mg PO QAM RF: 0 Farxiga 10 mg tablet 10 mg PO QAM RF: 0 buspirone 15 mg Tablet 15 mg PO TID RF: 0 Discharge Orders: Discharge ED (Routine); Ordered 02/07/21 Ordered By: Emmie Elizabeth Referrals: Ofe Paula, SCALE TESTER [Primary Care Provider] - Discharge Diet: Usual diet Discharge Activity: Limit activity as instructed Patient Instructions: Wound Healing and Your Diet (ED), Opioid Safety Activity Restrictions/Additional Instructions: Continue to wear cervical collar as directed by Dr. Mitchell Follow-up with Dr. Mitchell as scheduled, contact his office if you continue to experience drainage from the incision Return to the emergency department if you develop fever chills nausea vomiting or other concerning symptoms Avoid touching the incision site Coding Level of Care Code ED Spring Fitter for Chg Fwd Exam Comprehensive
[2021-02-07 23:12] VITALS: BP 142/99; PULSE 98; RESP 16; O2SAT 97
== END 2021-02-07 23:12 | disposition home or self-care (01) ==
PROVIDERS: Emergency Provider Nurse Practitioner Family; PCP Registered Nurse
DX: Z48.01 Encounter for change or removal of surgical wound dressing (principal); Z79.4 Long term (current) use of insulin; E78.5 Hyperlipidemia, unspecified; I10 Essential (primary) hypertension; E11.9 Type 2 diabetes mellitus without complications; F17.210 Nicotine dependence, cigarettes, uncomplicated
CPT/HCPCS: 99281

== ENCOUNTER → 2021-02-10 16:14 | Outpatient (BNVA) | payer MEDICARE, MEDICAID, SELFPAY | PROVIDERS: PCP Registered Nurse; Visit Provider Internal Medicine | DX: B19.20 Unspecified viral hepatitis C without hepatic coma (principal); B18.2 Chronic viral hepatitis C | CPT/HCPCS: 87522 ==

== ENCOUNTER → 2021-04-06 13:26 | Outpatient (BNVA) | payer MEDICARE, MEDICAID, SELFPAY | PROVIDERS: PCP Registered Nurse; Visit Provider Orthopaedic Surgery | DX: Z48.89 Encounter for other specified surgical aftercare (principal); M47.812 Spondylosis without myelopathy or radiculopathy, cervical region; M54.12 Radiculopathy, cervical region; M99.01 Segmental and somatic dysfunction of cervical region; M47.22 Other spondylosis with radiculopathy, cervical region; M43.10 Spondylolisthesis, site unspecified | CPT/HCPCS: 72040 ==

== ENCOUNTER → 2021-04-08 09:12 | Outpatient (BNVA) | payer MEDICARE, MEDICAID, SELFPAY | PROVIDERS: PCP Registered Nurse; Visit Provider Registered Nurse | DX: E11.22 Type 2 diabetes mellitus with diabetic chronic kidney disease (principal) | CPT/HCPCS: 80053; 83036 ==

== ENCOUNTER → 2021-05-25 14:59 | Outpatient (BNVA) | payer MEDICARE, MEDICAID, SELFPAY | PROVIDERS: PCP Registered Nurse; Visit Provider Orthopaedic Surgery | DX: M54.9 Dorsalgia, unspecified (principal); M47.22 Other spondylosis with radiculopathy, cervical region; M48.062 Spinal stenosis, lumbar region with neurogenic claudication | CPT/HCPCS: 72040; 72110 ==

== ENCOUNTER 2021-06-04 10:23 | Emergency (ER) | payer MEDICARE, MEDICAID, SELFPAY ==
[2021-06-04 10:42] VITALS: BP 114/75; PULSE 99; RESP 15; TEMP 36.9; O2SAT 98; BMI 26.6
[2021-06-04 10:45] VITALS: RESP 15
--- NOTE | 2021-06-04 10:58 | W.ED.WOUNDLC ---
HPI - Wound/Laceration General: Chief Complaint: Wound/Laceration Stated Complaint: finger lac Time Seen by Provider: 06/04/21 10:41 History of Present Illness: HPI narrative: Patient cut the back of his left index finger with a knife earlier today. Onset (ago): hour(s) Place: home Patient tetanus UTD: Yes Context: accidental Associated symptoms: Reports no associated symptoms; Denies chills or fever(s) Review of Systems Const: Denies: fever(s) or chills Skin/Breast: Reports: other (Laceration left index finger from a knife. Tetanus is up-to-date.) Psych: Denies: anxiety PFSH ED PFSH: Medical History ADD (attention deficit disorder) Angina decubitus Asthma Carpal tunnel syndrome Chest pain Chronic pain syndrome GERD (gastroesophageal reflux disease) Hematuria History of hepatitis Hyperlipidemia Hypertension Irritable bowel syndrome Peptic ulcer disease Pneumothorax Seasonal allergies Staphylococcal infection of skin Tobacco use Type 2 diabetes mellitus Surgical History H/O chest tube placement H/O neck surgery H/O wrist surgery R History of back surgery History of carpal tunnel surgery L Family History Family/Other No problems noted. Other Adopted Social History Smoking and tobacco status: current every day smoker cigarettes Packs smoked per day: 0 [ Other cigarette details: Says has been cutting down ] and smokeless tobacco Quit status (tobacco): considering quitting Second hand smoke exposure: Yes Smoking risk assessment/counseling performed?: No Alcohol intake: former Desire information about alcohol rehabilitation?: No Lives independently: Yes Household members: spouse Marital status: Current occupational status: unemployed History of recent travel: No Current gender identity: Male Physical Exam Const: COMMON NORMALS: no acute distress GENERAL APPEARANCE: cooperative Psych: COMMON NORMALS: mental status grossly normal Skin: OTHER: Left index finger toward the base he has approximately 1 inch laceration with no active bleeding. Distal neurovascular intact does have good flexion extension of tendon without any difficulties. Procedures Laceration Laceration 1: Site: hand Side (If applicable): left Size (cm): 2.5 Description: linear Depth: simple, single layer Pre-repair: wound explored and irrigated extensively Skin layer closed with: other (Skin adhesive and Steri-Strips) Size (cm): other (Skin adhesive) Course Vital Signs: Vital signs: Vital Signs Temperature 98.5 F 06/04/21 10:42 Pulse Rate 99 06/04/21 10:42 Respiratory Rate 15 06/04/21 10:45 Blood Pressure 114/75 06/04/21 10:42 Pulse Oximetry 98 06/04/21 10:42 Discharge Plan Discharge Patient Disposition: Home Clinical Impression: Laceration Condition: Stable Prescriptions: No Action quetiapine [Seroquel] 25 mg tablet 100 mg PO QPM RF: 0 (DME) Bone Stimulator E7048 See Rx Instructions .Route .MEDSUPPLY Qty: 1 RF: 0 hydrocortisone 2.5 % cream 1 applic topical BID PRN (Reason: skin irritation) Qty: 28 RF: 1 metformin 500 mg tablet extended release 24 hr 500 mg PO QAM Qty: 90 RF: 1 Farxiga 10 mg tablet See Rx Instructions .ROUTE .COMPLEX Qty: 90 RF: 1 albuterol sulfate [ProAir HFA] 90 mcg/actuation HFA aerosol inhaler 1 - 2 puff INHALATION Q6H PRN (Reason: shortness of breath or wheezing) 30 Days Qty: 18 RF: 2 dicyclomine 10 mg capsule 10 mg PO QID PRN (Reason: abdominal discomfort) 30 Days Qty: 60 RF: 5 prednisone 20 mg tablet 20 mg PO DAILY Qty: 15 RF: 0 oxycodone [Roxicodone] 5 mg tablet 5 mg PO Q4H PRN (Reason: pain) 7 Days Qty: 60 RF: 0 gabapentin 300 mg capsule 300 mg PO TID Qty: 90 RF: 0 topiramate [Topamax] 50 mg tablet 50 mg PO BID Qty: 60 RF: 0 metoprolol succinate 50 mg tablet extended release 24 hr See Rx Instructions .ROUTE .COMPLEX Qty: 90 RF: 0 omeprazole 20 mg capsule,delayed release(DR/EC) 40 mg PO BID 90 Days Qty: 360 RF: 0 (DME) blood-glucose meter [Accu-Chek Britany Plus Meter] Misc See Rx Instructions .Route Qty: 1 RF: 0 (DME) Accu-Chek Britany Plus test strp Strip See Rx Instructions .Route Qty: 100 RF: 1 (DME) lancets [Accu-Chek Softclix Lancets] Misc See Rx Instructions .Route Qty: 100 RF: 0 (DME) blood-glucose meter [Accu-Chek Guide Glucose Meter] Misc See Rx Instructions .Route Qty: 1 RF: 0 (DME) Accu-Chek Guide test strips Strip See Rx Instructions .Route Qty: 100 RF: 0 Lantus Solostar U-100 Insulin 100 unit/mL (3 mL) insulin pen See Rx Instructions .ROUTE .COMPLEX Qty: 15 RF: 0 mupirocin 2 % ointment 1 applic topical BID Qty: 22 RF: 2 cephalexin 500 mg capsule 500 mg PO TID 10 Days Qty: 30 RF: 0 tizanidine 4 mg tablet 4 mg PO Q8H PRN (Reason: muscle spasticity) 30 Days Qty: 90 RF: 0 Viibryd 40 mg tablet 40 mg PO QAM RF: 0 Discharge Orders: Discharge ED (Routine); Ordered 06/04/21 Ordered By: Nilesh Reynolds Referrals: Ofe Paula, SENIOR CORPORATE STRATEGY MANAGER [Primary Care Provider] - Discharge Diet: Usual diet Discharge Activity: Resume usual activity Patient Instructions: Skin Adhesive Care (ED) Activity Restrictions/Additional Instructions: Follow-up primary care provider as needed. Watch for signs symptoms of infection. Leave dressing in place for 24 to 48 hours. Coding Level of Care Code ED Internal Communications Manager for Marcos Scott
[2021-06-04 11:11] VITALS: BP 103/72; PULSE 84; RESP 16; TEMP 36.2; O2SAT 97
== END 2021-06-04 11:16 | disposition home or self-care (01) ==
PROVIDERS: Emergency Provider Nurse Practitioner Family; PCP Registered Nurse
DX: S61.211A Laceration without foreign body of left index finger without damage to nail, initial encounter (principal); J45.909 Unspecified asthma, uncomplicated; E78.5 Hyperlipidemia, unspecified; I10 Essential (primary) hypertension; E11.9 Type 2 diabetes mellitus without complications; F17.210 Nicotine dependence, cigarettes, uncomplicated; Z79.4 Long term (current) use of insulin; W26.0XXA Contact with knife, initial encounter
CPT/HCPCS: 12001; 99282

== ENCOUNTER 2021-06-24 15:36 | Outpatient (CLI) | payer MEDICARE, MEDICAID, SELFPAY ==
--- NOTE | 2021-06-24 16:00 | MR_ITS ---
WS: [id number] MRI LUMBAR SPINE NONCONTRAST HISTORY: M43.10 - Spondylolisthesis, site unspecified, muscle spasms and bilateral leg pain and burni ng. COMPARISON: 12/18/2020 TECHNIQUE: Sagittal and axial multisequence imaging is submitted. T10 hemangioma. Mild straightening of the normal lumbar lordosis. 2 mm anterolisthesis of L4 is similar to the prior study. Disc spaces and vertebral body heights are well-preserved. Conus terminates normally at L1-2 disc level. L1-L2: Normal. L2-L3: Again noted is the minimal RIGHT foraminal disc protrusion not causing significant stenosis. M ild RIGHT foraminal narrowing. L3-L4: Mild annular disc bulge with a fissure in the LEFT foraminal disc. Small LEFT foraminal protru christal is contacting the exiting LEFT L3 nerve root as seen before. Mild LEFT foraminal narrowing. Mode rate facet joint arthritis. L4-L5: Diffuse moderate annular disc bulging with effacement of the ventral thecal sac. Fissures are noted within the disc and the foramen and there is moderate ligamentum flavum hypertrophy and facet a rthritis. Fluid in the facet joints with mild widening is similar to the prior study. Mild central st enosis. Mild to moderate bilateral foraminal narrowing with contact on the exiting L4 nerve roots ed aterally. Similar to the prior study. L5-S1: No stenosis. Visualized retroperitoneum is normal. MR/MR lumbar spine wo con* [id number] IMPRESSION: 1. Multiple moderate bilateral foraminal stenosis at L4-5 with disc contact on the exiting L4 nerve roots bilaterally. Similar to the prior study. Mild centr al stenosis L4-5. 2. Mild LEFT foraminal stenosis at L3-4 with a LEFT foraminal protrusion conta cting the exiting L3 nerve root. 3. Moderate facet joint arthropathy at L4-5. Fluid in the facet joints and wid ening can be seen with synovitis may be resulting in instability.
== END 2021-06-24 15:37 | disposition home or self-care (01) ==
LOC: RADSHAW 15:40
PROVIDERS: PCP Registered Nurse; Visit Provider Orthopaedic Surgery
DX: M43.10 Spondylolisthesis, site unspecified (principal); M48.061 Spinal stenosis, lumbar region without neurogenic claudication; M51.26 Other intervertebral disc displacement, lumbar region; M47.816 Spondylosis without myelopathy or radiculopathy, lumbar region
CPT/HCPCS: 72148

== ENCOUNTER → 2021-08-02 09:39 | Outpatient (BNVA) | payer MEDICARE, MEDICAID, SELFPAY | PROVIDERS: PCP Registered Nurse; Visit Provider Orthopaedic Surgery | DX: E11.22 Type 2 diabetes mellitus with diabetic chronic kidney disease (principal); N18.30 Chronic kidney disease, stage 3 unspecified | CPT/HCPCS: 80069; 82043; 82550; 83970; 85025; 87086 ==

== ENCOUNTER → 2021-08-03 08:46 | Outpatient (BNVA) | payer MEDICARE, MEDICAID, SELFPAY | PROVIDERS: PCP Registered Nurse; Visit Provider Anesthesiology Pain Medicine | DX: G89.29 Other chronic pain (principal); M48.062 Spinal stenosis, lumbar region with neurogenic claudication; M54.12 Radiculopathy, cervical region; M47.812 Spondylosis without myelopathy or radiculopathy, cervical region; M47.816 Spondylosis without myelopathy or radiculopathy, lumbar region; M43.10 Spondylolisthesis, site unspecified; M79.601 Pain in right arm; M79.602 Pain in left arm; I10 Essential (primary) hypertension; E11.9 Type 2 diabetes mellitus without complications; F17.220 Nicotine dependence, chewing tobacco, uncomplicated; Z79.4 Long term (current) use of insulin | CPT/HCPCS: 99214 ==

== ENCOUNTER 2021-08-08 12:27 | Emergency (ER) | payer MEDICARE, MEDICAID, SELFPAY ==
[2021-08-08 13:04] VITALS: BP 121/82; PULSE 81; RESP 18; TEMP 37; O2SAT 98; BMI 27.3
--- NOTE | 2021-08-08 14:03 | XRR_ITS ---
PROCEDURE INFORMATION: Exam: XR Left Hip Exam date and time: 08/08/2021 2:03 PM Age: 46 years old Clinical indication: Hip pain; Left hip; Additional info: Pain, injury, include pelvis TECHNIQUE: Imaging protocol: XR Left hip. Views: 2 or 3 views hip with pelvis when performed. COMPARISON: CT abdomen pelvis wo con [id number] 05/09/2020 11:10 PM FINDINGS: Bones/joints: Negative for fracture. The left femoroacetabular joint space is preserved. Soft tissues: Unremarkable. XR/XR hip LT 2-3V wo/w pel* [id number] IMPRESSION: No acute findings. Radiation Dose CTDIVOL = (mGy): DLP = (mGy-cm)
--- NOTE | 2021-08-08 15:36 | ED_ITS ---
HPI - Extremity Problem General: Chief complaint: Extremity Injury, Lower Stated complaint: L. HIP PAIN Time Seen by Provider: 08/08/21 15:36 History of Present Illness: HPI Narrative: Patient comes in today for some low back pain radiating to his left hip. Patient states he had lifted 2 cases of soda to carry him into the house and felt a strain in his low back. Patient states that he has a history of chronic back problems. Patient appears well. Patient appears in mild to moderate pain. Review of Systems General: Reports: 10 or more systems reviewed and unremarkable except in HPI and below Musc: Reports: other (Low back and hip pain.) [facility] ED 2 PFS: Medical History (Updated 08/08/21 @ 15:51 by MIKEY Acosta) ADD (attention deficit disorder) Angina decubitus Asthma Carpal tunnel syndrome Chest pain Chronic pain syndrome GERD (gastroesophageal reflux disease) Hematuria History of hepatitis Hyperlipidemia Hypertension Irritable bowel syndrome Peptic ulcer disease Pneumothorax Psychiatric care Seasonal allergies Staphylococcal infection of skin Tobacco use Type 2 diabetes mellitus Surgical History H/O chest tube placement H/O neck surgery H/O wrist surgery R History of back surgery History of carpal tunnel surgery L Family History Family/Other No problems noted. Other Adopted Social History (Updated 08/03/21 @ 09:16 by Meeta Robertson LPN) Smoking and tobacco status: current every day smoker smokeless tobacco Quit status (tobacco): considering quitting Second hand smoke exposure: Yes Smoking risk assessment/counseling performed?: No Alcohol intake: former Desire information about alcohol rehabilitation?: No Lives independently: Yes Household members: spouse Marital status: Current occupational status: unemployed History of recent travel: No Current gender identity: Male Physical Exam Const: COMMON NORMALS: no acute distress and patient oriented x3 GENERAL APPEARANCE: cooperative HENMT: COMMON NORMALS: normocephalic and Normal external nose present HEAD & SCALP: normal to inspection and normocephalic NOSE: Normal external nose present Eye: GENERAL EYE: appearance normal, both eyes and all related structures Neck/C-Spine: COMMON NORMALS: full ROM Chest: COMMONS NORMALS: normal inspection of the chest Resp: COMMON NORMALS: normal respiratory effort EFFORT & INSPECTION: Yes able to speak in complete sentences Cardio: COMMON NORMALS: regular rate and regular rhythm RATE: regular rate RHYTHM: regular rhythm GI: COMMON NORMALS: non-tender : COMMON NORMALS: Yes no CVA tenderness BLADDER/KIDNEY EXAM: Yes no CVA tenderness Back/Pelvis: COMMON NORMALS: no CVA tenderness THORACIC SPINE/UPPER BACK: Yes normal to inspection LUMBAR SPINE/LOWER BACK: Yes paraspinal muscle tenderness Lumbar paraspinal muscle tenderness: left Extremity: NARRATIVE EXTREMITY EXAM: Tenderness noted to the lateral left hip. Normal range of motion. Neuro: COMMON NORMALS: patient oriented x3 and moves all extremities Psych: COMMON NORMALS: mental status grossly normal and cooperative Skin: COMMON NORMALS: no rashes or lesions noted GENERAL SKIN EXAM: no rashes or lesions noted Course Vital Signs: Vital signs: Vital Signs Temperature 98.6 F 08/08/21 13:04 Pulse Rate 81 08/08/21 13:04 Respiratory Rate 18 08/08/21 13:04 Blood Pressure 121/82 08/08/21 13:04 Pulse Oximetry 98 08/08/21 13:04 MDM - Extremity (Nontraumatic) MDM Narrative: Medical decision making narrative: Patient comes in for injury to the left hip. On exam patient has some muscle tenderness in the low back and some lateral tenderness to the left hip. Differential diagnosis includes lumbar strain, intervertebral disc disease, facet arthropathy, tendinitis versus bursitis of the left hip, strain of the left hip. X-rays of the pelvis and hip indicated no abnormality. Discussion with the patient noted that he has significant chronic back problems with significant degenerative joint disease. Most likely this is pain just aggravated of his chronic condition. Patient was given a injection of Toradol, morphine, and orphenadrine today for his pain. Patient will be continued on some diclofenac 75 twice a day for the next 5 days along with some Robaxin 754 times a day. Courage patient to follow-up with primary care for further medication treatment and recommendations. Discharge Plan Discharge Patient Disposition: Home Clinical Impression: Lumbar stenosis with neurogenic claudication Chronic back pain Qualifiers: Back pain location: low back pain Back pain laterality: left Sciatica presence: with sciatica Sciatica laterality: sciatica of left side Qualified Code(s): M54.42 - Lumbago with sciatica, left side Condition: Stable Prescriptions: New methocarbamol 750 mg tablet 750 mg PO Q6H Qty: 14 RF: 0 diclofenac sodium 75 mg tablet,delayed release (DR/EC) 75 mg PO BID Qty: 10 RF: 0 No Action quetiapine [Seroquel] 25 mg tablet 100 mg PO QPM RF: 0 (DME) Bone Stimulator [id number] See Rx Instructions .Route .MEDSUPPLY Qty: 1 RF: 0 metformin 500 mg tablet extended release 24 hr 500 mg PO QAM Qty: 90 RF: 1 Farxiga 10 mg tablet See Rx Instructions .ROUTE .COMPLEX Qty: 90 RF: 1 albuterol sulfate [ProAir HFA] 90 mcg/actuation HFA aerosol inhaler 1 - 2 puff INHALATION Q6H PRN (Reason: shortness of breath or wheezing) 30 Days Qty: 18 RF: 2 dicyclomine 10 mg capsule 10 mg PO QID PRN (Reason: abdominal discomfort) 30 Days Qty: 60 RF: 5 topiramate [Topamax] 50 mg tablet 50 mg PO BID Qty: 60 RF: 0 omeprazole 20 mg capsule,delayed release(DR/EC) 40 mg PO BID 90 Days Qty: 360 RF: 0 (DME) blood-glucose meter [Accu-Chek Britany Plus Meter] Misc See Rx Instructions .Route Qty: 1 RF: 0 (DME) Accu-Chek Britany Plus test strp Strip See Rx Instructions .Route Qty: 100 RF: 1 (DME) lancets [Accu-Chek Softclix Lancets] Misc See Rx Instructions .Route Qty: 100 RF: 0 (DME) blood-glucose meter [Accu-Chek Guide Glucose Meter] Misc See Rx Instructions .Route Qty: 1 RF: 0 (DME) Accu-Chek Guide test strips Strip See Rx Instructions .Route Qty: 100 RF: 0 Lantus Solostar U-100 Insulin 100 unit/mL (3 mL) insulin pen See Rx Instructions .ROUTE .COMPLEX Qty: 15 RF: 0 mupirocin 2 % ointment 1 applic topical BID Qty: 22 RF: 2 tizanidine 4 mg tablet See Rx Instructions .ROUTE .COMPLEX Qty: 90 RF: 0 metoprolol succinate 50 mg tablet extended release 24 hr See Rx Instructions .ROUTE .COMPLEX Qty: 90 RF: 0 gabapentin 300 mg capsule 300 mg PO TID Qty: 90 RF: 0 Viibryd 40 mg tablet 40 mg PO QAM RF: 0 Discharge Orders: Discharge ED (Routine); Ordered 08/08/21 Ordered By: Bo Mccrary Referrals: Ofe Paula FNP [Primary Care Provider] - Discharge Diet: Usual diet Discharge Activity: Increase activity as tolerated Patient Instructions: Back Pain (ED), Opioid Safety Activity Restrictions/Additional Instructions: Activity as tolerated. Continue with routine care. Drink plenty of water. Do not take diclofenac with naproxen or ibuprofen. Follow-up with primary care for further medication use or alternative to treatment plan. Return to the ER for new concerns. Coding Level of Care Code ED Instruction[employer] Design Specialist for [facility] Scott
[2021-08-08 16:18] VITALS: BP 118/69; PULSE 58; RESP 18; TEMP 36.8; O2SAT 97
[2021-08-08] MEDS: ketorolac 30 mg/mL INJ IM (16:22)
[2021-08-08] MEDS: orphenadrine 30 mg/mL Inj 2 mL 60 MG IM (16:24)
[2021-08-08 16:25] VITALS: RESP 17; O2SAT 98
[2021-08-08] MEDS: morphine 4 mg/mL SDV 1 mL IM (16:25)
[2021-08-08 17:00] VITALS: BP 122/76; PULSE 57; RESP 18; TEMP 36.9; O2SAT 97
== END 2021-08-08 17:02 | disposition home or self-care (01) ==
PROVIDERS: Emergency Provider Nurse Practitioner Family; PCP Registered Nurse
DX: M54.42 Lumbago with sciatica, left side (principal); G89.29 Other chronic pain; M48.062 Spinal stenosis, lumbar region with neurogenic claudication; Z79.84 Long term (current) use of oral hypoglycemic drugs; Z79.4 Long term (current) use of insulin; E78.5 Hyperlipidemia, unspecified; I10 Essential (primary) hypertension; E11.9 Type 2 diabetes mellitus without complications; F17.220 Nicotine dependence, chewing tobacco, uncomplicated
CPT/HCPCS: 73502; 96372; 99283; J1885; J2270; J2360

== ENCOUNTER → 2021-08-13 08:05 | Outpatient (BNVA) | payer MEDICARE, MEDICAID, SELFPAY | PROVIDERS: PCP Registered Nurse; Visit Provider Psychiatry & Neurology Psychiatry | DX: F43.9 Reaction to severe stress, unspecified (principal); F33.2 Major depressive disorder, recurrent severe without psychotic features; F41.1 Generalized anxiety disorder; M43.10 Spondylolisthesis, site unspecified; M47.22 Other spondylosis with radiculopathy, cervical region; F17.210 Nicotine dependence, cigarettes, uncomplicated | CPT/HCPCS: 99204 ==

== ENCOUNTER 2021-08-17 22:34 | Emergency (ER) | payer MEDICARE, MEDICAID, SELFPAY ==
[2021-08-17 22:43] VITALS: BP 139/65; PULSE 72; RESP 16; TEMP 36.7; O2SAT 95; BMI 28.4
--- NOTE | 2021-08-18 00:17 | ED_ITS ---
HPI - Back Pain/Injury General: Chief Complaint: Back Pain/Injury Stated Complaint: back pain, fall Time Seen by Provider: 08/18/21 00:17 History of Present Illness: HPI Narrative: 46-year-old male patient comes in today with complaints of lower back pain radiating into the left buttocks and hip. Patient is waiting for his surgical procedure for fusion of his lumbar spine. Patient denies any loss of bowel or bladder control. Patient just has significant sciatic pain going down his left extremity. Review of Systems General: Reports: 10 or more systems reviewed and unremarkable except in HPI and below Musc: Reports: back pain PFSH ED PFSH: Medical History (Updated 08/18/21 @ 00:33 by MIKEY Acosta) ADD (attention deficit disorder) Angina decubitus Asthma Carpal tunnel syndrome Chest pain Chronic pain syndrome GERD (gastroesophageal reflux disease) Hematuria History of hepatitis Hyperlipidemia Hypertension Irritable bowel syndrome Peptic ulcer disease Pneumothorax Psychiatric care Seasonal allergies Staphylococcal infection of skin Tobacco use Type 2 diabetes mellitus Surgical History H/O chest tube placement H/O neck surgery H/O wrist surgery R History of back surgery History of carpal tunnel surgery L Family History Family/Other No problems noted. Other Adopted Social History (Updated 08/13/21 @ 08:56 by Casa Ramsay LPN) Smoking and tobacco status: current every day smoker smokeless tobacco Smokeless tobacco user: chewing tobacco and snuff Smokeless tobacco details: 1 can/ 2 days Quit status (tobacco): not considering quitting Second hand smoke exposure: Yes Smoking risk assessment/counseling performed?: No Alcohol intake: former Desire information about alcohol rehabilitation?: No Lives independently: Yes Household members: spouse Marital status: Current occupational status: unemployed History of recent travel: No Current gender identity: Male Physical Exam Const: COMMON NORMALS: no acute distress and patient oriented x3 GENERAL APPEARANCE: cooperative HENMT: COMMON NORMALS: normocephalic and Normal external nose present HEAD & SCALP: normal to inspection and normocephalic NOSE: Normal external nose present MOUTH: Normal oral and palatal mucosa present THROAT: posterior oropharynx normal Eye: GENERAL EYE: appearance normal, both eyes and all related structures Neck/C-Spine: COMMON NORMALS: full ROM Chest: COMMONS NORMALS: normal inspection of the chest Resp: COMMON NORMALS: normal respiratory effort EFFORT & INSPECTION: Yes able to speak in complete sentences Cardio: COMMON NORMALS: regular rate and regular rhythm RATE: regular rate RHYTHM: regular rhythm GI: COMMON NORMALS: non-tender : COMMON NORMALS: Yes no CVA tenderness BLADDER/KIDNEY EXAM: Yes no CVA tenderness Back/Pelvis: COMMON NORMALS: no CVA tenderness THORACIC SPINE/UPPER BACK: Yes normal to inspection LUMBAR SPINE/LOWER BACK: No lumbar spinal tenderness and Yes paraspinal muscle tenderness Lumbar paraspinal muscle tenderness: left left lumbar paraspinal muscle tenderness: L4 and L5 Extremity: COMMON NORMALS: normal to inspection Neuro: COMMON NORMALS: patient oriented x3 and moves all extremities Psych: COMMON NORMALS: mental status grossly normal and cooperative Skin: COMMON NORMALS: no rashes or lesions noted GENERAL SKIN EXAM: no rashes or lesions noted Course ED course: 11 04, patient had improvement in pain and discomfort. Patient was able to stand and ambulate in the room. Recommended patient continue with routine care. Patient was written a short course of hydrocodone with ibuprofen No. 10 tablets and recommended to use those only for severe pain. Patient repor amparo understanding and agreed to plan. Vital Signs: Vital signs: Vital Signs Temperature 98.0 F 08/17/21 22:43 Pulse Rate 77 08/18/21 00:43 Respiratory Rate 16 08/18/21 00:51 Blood Pressure 118/85 08/18/21 00:43 Pulse Oximetry 98 08/18/21 00:43 MDM - Back Pain/Injury MDM Narrative: Medical decision making narrative: Patient comes in today with complaints of low back pain radiating into his left hip and left lower leg. Patient has had previous episodes where he has been to the ER for similar complaints. Patient reports some difficulty ambulating at times. Patient denies any problems with bowel or bladder. Differential diagnosis includes intervertebral disc disease, facet arthropathy, lumbar radiculopathy. Patient is known to have chronic medical back problems. No sign of serious injury is noted. Patient was given injection for his pain and discomfort. With improvement. Injection consisted of Toradol, orphenadrine and 4 mg of morphine. Recommended patient continue with routine care and follow-up with primary care for further instruction. Patient reported understanding. Reviewed the record no signs of recent narcotic prescription was written. Discharge Plan Discharge Patient Disposition: Home Clinical Impression: Chronic lumbar radiculopathy Condition: Stable Prescriptions: New hydrocodone-ibuprofen 5-200 mg tablet 1 tab PO Q6H PRN (Reason: pain (scale score 7-10)) Qty: 10 RF: 0 diclofenac sodium 50 mg tablet,delayed release (DR/EC) 50 mg PO BID Qty: 10 RF: 0 Discontinued diclofenac sodium 75 mg tablet,delayed release (DR/EC) 75 mg PO BID Qty: 10 RF: 0 No Action metformin 500 mg tablet extended release 24 hr 500 mg PO QAM Qty: 90 RF: 1 Farxiga 10 mg tablet See Rx Instructions .ROUTE .COMPLEX Qty: 90 RF: 1 albuterol sulfate [ProAir HFA] 90 mcg/actuation HFA aerosol inhaler 1 - 2 puff INHALATION Q6H PRN (Reason: shortness of breath or wheezing) 30 Days Qty: 18 RF: 2 dicyclomine 10 mg capsule 10 mg PO QID PRN (Reason: abdominal discomfort) 30 Days Qty: 60 RF: 5 trazodone 100 mg tablet 400 mg PO .HS PRN (Reason: insomnia) Qty: 120 RF: 2 bupropion HCl [Wellbutrin XL] 150 mg tablet extended release 24 hr 150 mg PO QAM Qty: 30 RF: 2 Viibryd 40 mg tablet 40 mg PO QAM Qty: 30 RF: 2 omeprazole 20 mg capsule,delayed release(DR/EC) 40 mg PO BID 90 Days Qty: 360 RF: 0 (DME) blood-glucose meter [Accu-Chek Britany Plus Meter] Misc See Rx Instructions .Route Qty: 1 RF: 0 (DME) Accu-Chek Britany Plus test strp Strip See Rx Instructions .Route Qty: 100 RF: 1 (DME) lancets [Accu-Chek Softclix Lancets] Misc See Rx Instructions .Route Qty: 100 RF: 0 (DME) blood-glucose meter [Accu-Chek Guide Glucose Meter] Misc See Rx Instructions .Route Qty: 1 RF: 0 (DME) Accu-Chek Guide test strips Strip See Rx Instructions .Route Qty: 100 RF: 0 Lantus Solostar U-100 Insulin 100 unit/mL (3 mL) insulin pen See Rx Instructions .ROUTE .COMPLEX Qty: 15 RF: 0 tizanidine 4 mg tablet See Rx Instructions .ROUTE .COMPLEX Qty: 90 RF: 0 metoprolol succinate 50 mg tablet extended release 24 hr See Rx Instructions .ROUTE .COMPLEX Qty: 90 RF: 0 gabapentin 300 mg capsule 300 mg PO TID Qty: 90 RF: 0 Discharge Orders: Discharge ED (Routine); Ordered 08/18/21 Ordered By: Bo Mccrary Referrals: Ofe Paula FNP [Primary Care Provider] - Discharge Diet: Usual diet Discharge Activity: Increase activity as tolerated Patient Instructions: Back Pain (ED), Opioid Safety Activity Restrictions/Additional Instructions: Home and rest. Activity as tolerated. Use routine medications as directed. Use hydrocodone sparingly for breakthrough back pain. Follow-up with primary care or specialist for further treatment and evaluation. Coding Level of Care Code ED [employer] Coverer for Marcos Fwd Exam Comprehensive
[2021-08-18 00:43] VITALS: BP 118/85; PULSE 77; RESP 16; O2SAT 98
[2021-08-18] MEDS: ketorolac 30 mg/mL INJ IM (00:50)
[2021-08-18 00:51] VITALS: RESP 16
[2021-08-18] MEDS: morphine 4 mg/mL SDV 1 mL IM (00:51)
[2021-08-18] MEDS: orphenadrine 30 mg/mL Inj 2 mL 60 MG IM (00:52)
[2021-08-18 01:29] VITALS: BP 140/71; PULSE 80; RESP 16; O2SAT 98
== END 2021-08-18 01:30 | disposition home or self-care (01) ==
PROVIDERS: Emergency Provider Nurse Practitioner Family; PCP Registered Nurse
DX: M54.16 Radiculopathy, lumbar region (principal); Z79.84 Long term (current) use of oral hypoglycemic drugs
CPT/HCPCS: 96372; 99283; J1885; J2270; J2360

== ENCOUNTER → 2021-09-10 08:13 | Outpatient (BNVA) | payer MEDICARE, MEDICAID, SELFPAY | PROVIDERS: PCP Registered Nurse; Visit Provider Psychiatry & Neurology Psychiatry | DX: F41.1 Generalized anxiety disorder (principal); F33.2 Major depressive disorder, recurrent severe without psychotic features; F43.9 Reaction to severe stress, unspecified; F17.210 Nicotine dependence, cigarettes, uncomplicated | CPT/HCPCS: 99214 ==

== ENCOUNTER 2021-10-23 06:45 | Emergency (ER) | payer MEDICARE, MEDICAID, SELFPAY ==
[2021-10-23 07:00] VITALS: BP 126/77; PULSE 85; RESP 15; TEMP 36.9; O2SAT 96; BMI 26.6
--- NOTE | 2021-10-23 07:21 | W.ED.BACK ---
HPI - Back Pain/Injury General: Chief Complaint: Back Pain/Injury Stated Complaint: BACK PAIN/SURGERY DUE IN DECEMBER Time Seen by Provider: 10/23/21 07:01 History of Present Illness: HPI Narrative: 46-year-old male with a known history ofSpondylolisthesis at the L4-5 level causing neural impingement with left leg radicular symptoms. He had previously has surgery scheduled there is some logistical issues that got delayed. He is now wanting to wait until December after the winter as he is concerned he may slip and fall and worsen the problem. He seen Dr. Mitchell earlier this month that note was reviewed today. He is having worsening pain today after playing with his grandchildren yesterday pain is worse to the left buttock leg. He is not had any functional loss of the leg no saddle anesthesias no urinary retention or fecal incontinence. He currently uses diclofenac hydrocodone as needed has used muscle relaxers in the past. Past medical and surgical history as well as previous notes with orthopedics reviewed. Is also previously had neck surgery. MD elicited complaint: back pain Pertinent past history: prior back pain Onset (ago): hour(s) Timing: constant Severity: moderate Similar Symptoms Previously: Yes Quality: burning and sharp Location: lumbar spine Radiation: left upper leg Exacerbating factors: sitting upright and walking Relieving factors: supine Context: turning/twisting and bending Associated symptoms: Reports difficulty walking (Due to pain) and tingling/numbness/burning; Deny abdominal pain, arthralgias, chills, change in bowel habits, dysuria, fatigue, fecal incontinence, fever(s), hematuria, myalgias, nausea, numbness, syncope, urinary frequency, urinary urgency, vomiting or weakness Review of Systems Const: Denies: fever(s), chills or fatigue ENMT: Denies: throat pain, ear or mastoid pain, nasal discharge or nasal congestion Card: Denies: syncope Resp: Denies: dyspnea, productive cough or non-productive cough GI: Denies: abdominal pain, nausea, vomiting, fecal incontinence or change in bowel habits : Denies: dysuria, urinary urgency or hematuria Skin/Breast: Denies: rash or pruritus Neuro: Reports: difficulty walking (Due to pain) PFS ED PFSH: Medical History ADD (attention deficit disorder) Angina decubitus Asthma Carpal tunnel syndrome Chest pain Chronic pain syndrome GERD (gastroesophageal reflux disease) Hematuria History of hepatitis Hyperlipidemia Hypertension Irritable bowel syndrome Peptic ulcer disease Pneumothorax Psychiatric care Seasonal allergies Staphylococcal infection of skin Tobacco use Type 2 diabetes mellitus Surgical History H/O chest tube placement H/O neck surgery H/O wrist surgery R History of back surgery History of carpal tunnel surgery L Family History Family/Other No problems noted. Other Adopted Social History Quit status (tobacco): not considering quitting Second hand smoke exposure: Yes Smoking risk assessment/counseling performed?: No Alcohol intake: former Desire information about alcohol rehabilitation?: No Lives independently: Yes Household members: spouse Marital status: Current occupational status: unemployed History of recent travel: No Current gender identity: Male Physical Exam Const: COMMON NORMALS: no acute distress GENERAL APPEARANCE: cooperative and comfortable ORIENTATION/CONSCIOUSNESS: Yes awake, Yes oriented to person, Yes oriented to place and Yes oriented to time HENMT: COMMON NORMALS: normocephalic, atraumatic and hearing grossly normal bilaterally HEAD & SCALP: normocephalic and atraumatic Neck/C-Spine: COMMON NORMALS: full ROM, no lymphadenopathy, supple and no JVD Resp: COMMON NORMALS: normal respiratory effort, No retractions, No use of accessory muscles and clear to auscultation bilaterally AUSCULTATION: clear to auscultation bilaterally Cardio: COMMON NORMALS: no JVD, regular rate, regular rhythm and No murmurs present (Cardio) RATE: regular rate RHYTHM: regular rhythm Extremity: COMMON NORMALS: normal to inspection, capillary refill normal, no clubbing, cyanosis or edema, no calf tenderness and no pedal edema Neuro: SENSORIUM/ORIENTATION: Yes oriented to person, Yes oriented to place and Yes oriented to time DEEP TENDON REFLEXES: Right patellar reflex intensity grade: 2+ and Left patellar reflex intensity grade: 2+ OTHER: Dorsal plantar flexion strength at the ankles 5 out of 5 Skin: COMMON NORMALS: no rashes or lesions noted GENERAL SKIN EXAM: no rashes or lesions noted Course Vital Signs: Vital signs: Vital Signs Temperature 98.5 F 10/23/21 07:00 Pulse Rate 73 10/23/21 07:30 Respiratory Rate 15 10/23/21 07:30 Blood Pressure 140/84 10/23/21 07:30 Pulse Oximetry 93 10/23/21 07:30 MDM - Back Pain/Injury MDM Narrative: Medical decision making narrative: Previous notes and imaging reviewed. Patient improved after medications given. Discharge home on prednisone taper hydrocodone as needed muscle relaxer continue anti-inflammatories follow-up with his primary care doctor or orthopedic surgeon within the next week. Has any worsening problems return to emergency room. Discharge Plan Discharge Patient Disposition: Home Clinical Impression: Spondylolisthesis, Spondylolisthesis at L4-L5 level, Lumbar radiculopathy Condition: Stable Prescriptions: New prednisone 20 mg tablet 20 mg PO DAILY Qty: 15 RF: 0 hydrocodone-acetaminophen 5-325 mg tablet 1 tab PO Q6H PRN (Reason: pain) Qty: 15 RF: 0 tizanidine 4 mg capsule 4 mg PO Q8H PRN (Reason: muscle spasticity) Qty: 20 RF: 0 No Action Farxiga 10 mg tablet See Rx Instructions .ROUTE .COMPLEX Qty: 90 RF: 1 gabapentin 300 mg capsule 300 mg PO TID Qty: 90 RF: 0 hydroxyzine HCl 50 mg tablet 50 mg PO QID PRN (Reason: anxiety) Qty: 120 RF: 2 buspirone 10 mg tablet 10 mg PO TID Qty: 90 RF: 2 pantoprazole 40 mg tablet,delayed release (DR/EC) 40 mg PO DAILY 90 Days Qty: 90 RF: 0 hydrocodone-ibuprofen 5-200 mg tablet 1 tab PO Q6H PRN (Reason: pain (scale score 7-10)) RF: 0 diclofenac sodium 50 mg tablet,delayed release (DR/EC) 50 mg PO BID RF: 0 albuterol sulfate [ProAir HFA] 90 mcg/actuation HFA aerosol inhaler 1 - 2 puff INHALATION Q6H PRN (Reason: shortness of breath or wheezing) 30 Days Qty: 18 RF: 2 dicyclomine 10 mg capsule 10 mg PO QID PRN (Reason: abdominal discomfort) 30 Days Qty: 60 RF: 5 trazodone 100 mg tablet 400 mg PO .HS PRN (Reason: insomnia) Qty: 120 RF: 2 bupropion HCl [Wellbutrin XL] 150 mg tablet extended release 24 hr 150 mg PO QAM Qty: 30 RF: 2 Viibryd 40 mg tablet 40 mg PO QAM Qty: 30 RF: 2 (DME) blood-glucose meter [Accu-Chek Britany Plus Meter] Misc See Rx Instructions .Route Qty: 1 RF: 0 (DME) Accu-Chek Britany Plus test strp Strip See Rx Instructions .Route Qty: 100 RF: 1 (DME) lancets [Accu-Chek Softclix Lancets] Misc See Rx Instructions .Route Qty: 100 RF: 0 (DME) blood-glucose meter [Accu-Chek Guide Glucose Meter] Misc See Rx Instructions .Route Qty: 1 RF: 0 (DME) Accu-Chek Guide test strips Strip See Rx Instructions .Route Qty: 100 RF: 0 tizanidine 4 mg tablet See Rx Instructions .ROUTE .COMPLEX Qty: 90 RF: 0 Lantus Solostar U-100 Insulin 100 unit/mL (3 mL) insulin pen See Rx Instructions .ROUTE .COMPLEX Qty: 15 RF: 0 metformin 500 mg tablet extended release 24 hr See Rx Instructions .ROUTE .COMPLEX Qty: 90 RF: 0 metoprolol succinate 50 mg tablet extended release 24 hr See Rx Instructions .ROUTE .COMPLEX Qty: 90 RF: 0 Discharge Orders: Discharge ED (Routine); Ordered 10/23/21 Ordered By: Loyd Temple Referrals: Ofe Paula, [facility] [Primary Care Provider] - Patient Instructions: Opioid Safety Activity Restrictions/Additional Instructions: Follow-up with your primary care doctor with Dr. Mitchell in the next 3 to 4 days. Coding Level of Care Code ED Aluminum Polisher for Marcos Fwd Exam Comprehensive
[2021-10-23 07:30] VITALS: BP 140/84; PULSE 73; RESP 15; O2SAT 93
[2021-10-23] MEDS: dexamethasone 10 mg/mL INJ IVP (07:30)
[2021-10-23] MEDS: ketorolac 30 mg/mL INJ IVP (07:32)
[2021-10-23] MEDS: orphenadrine 30 mg/mL Inj 2 mL 60 MG IVP (07:34)
[2021-10-23] MEDS: morphine 4 mg/mL SDV 1 mL 8 MG IVP (07:36)
== END 2021-10-23 08:31 | disposition home or self-care (01) ==
PROVIDERS: Emergency Provider Family Medicine; PCP Registered Nurse
DX: M43.16 Spondylolisthesis, lumbar region (principal); M54.16 Radiculopathy, lumbar region; E11.9 Type 2 diabetes mellitus without complications; I10 Essential (primary) hypertension; E78.5 Hyperlipidemia, unspecified
CPT/HCPCS: 96374; 96375; 99283; J1100; J1885; J2270; J2360

== ENCOUNTER → 2021-11-08 08:41 | Outpatient (BNVA) | payer MEDICARE, MEDICAID, SELFPAY | PROVIDERS: PCP Registered Nurse; Visit Provider Psychiatry & Neurology Psychiatry | DX: F41.1 Generalized anxiety disorder (principal); F33.2 Major depressive disorder, recurrent severe without psychotic features; F43.9 Reaction to severe stress, unspecified; F17.210 Nicotine dependence, cigarettes, uncomplicated | CPT/HCPCS: 99214 ==

== ENCOUNTER 2021-11-09 19:54 | Emergency (ER) | payer MEDICARE, MEDICAID, SELFPAY ==
[2021-11-09 20:37] VITALS: BP 135/74; PULSE 77; RESP 16; TEMP 36.8; O2SAT 97; BMI 28.1
--- NOTE | 2021-11-09 21:57 | W.ED.BACK ---
HPI - Back Pain/Injury General: Chief Complaint: Extremity Injury, Lower Stated Complaint: Back Pain Time Seen by Provider: 11/09/21 21:50 Source: patient and family Mode of arrival: ambulatory Limitations: no limitations History of Present Illness: HPI Narrative: Patient is a 46-year-old male who presents to ED today with complaint of lower back pain. Patient has a longstanding history of lower back pain. He has recently met with Dr. Mitchell and has plans for surgery to his lumbar spine on 12/06. Patient states he was helping around the house trying to prep the home for postoperative recovery and states he was doing lifting/bending/etc and states he immediately felt a pop in his lower back and is now having pain to the left side of his back and down the left lower extremity. Patient denies saddle anesthesia. He denies urinary retention or bowel incontinence. Patient has been able to ambulate since the event but reports quite a bit of discomfort. MD elicited complaint: back pain Pertinent past history: prior back pain Onset (ago): hour(s) Timing: constant Severity: severe Pain scale (0-10): 10 Similar Symptoms Previously: Yes Quality: sharp Location: lumbar spine and left lower back Radiation: left leg below the knee Exacerbating factors: movement, walking and lifting Relieving factors: none Context: while lifting, turning/twisting and bending Associated symptoms: Reports difficulty walking (secondary to pain); Deny abdominal pain, chills, dysuria, fatigue, fever(s) or hematuria Review of Systems Const: Denies: fever(s), chills, body aches, fatigue or malaise Card: Denies: chest pain Resp: Denies: dyspnea GI: Denies: abdominal pain : Denies: flank pain, dysuria, urinary hesitancy, urinary incontinence or hematuria Musc: Reports: back pain; Denies: joint pain, joint swelling, joint redness or joint warmth Skin/Breast: Denies: rash Neuro: Reports: difficulty walking (secondary to pain); Denies: headache(s), numbness in extremities, weakness in extremities or sensory changes PFS ED PFSH: Medical History ADD (attention deficit disorder) Angina decubitus Asthma Carpal tunnel syndrome Chest pain Chronic pain syndrome GERD (gastroesophageal reflux disease) Hematuria History of hepatitis Hyperlipidemia Hypertension Irritable bowel syndrome Peptic ulcer disease Pneumothorax Psychiatric care Seasonal allergies Staphylococcal infection of skin Tobacco use Type 2 diabetes mellitus Surgical History H/O chest tube placement H/O neck surgery H/O wrist surgery R History of back surgery History of carpal tunnel surgery L Family History Family/Other No problems noted. Other Adopted Social History Quit status (tobacco): not considering quitting Second hand smoke exposure: Yes Smoking risk assessment/counseling performed?: No Alcohol intake: former Desire information about alcohol rehabilitation?: No Lives independently: Yes Household members: spouse Marital status: Current occupational status: unemployed History of recent travel: No Current gender identity: Male Physical Exam Const: COMMON NORMALS: average body habitus, patient oriented x3, no limitations, alert and well nourished GENERAL APPEARANCE: cooperative and in distress (appears uncomfortable secondary to pain) Back/Pelvis: THORACIC SPINE/UPPER BACK: Yes normal to inspection, No thoracic spinal tenderness and No paraspinal muscle tenderness LUMBAR SPINE/LOWER BACK: Yes paraspinal muscle tenderness Lumbar paraspinal muscle tenderness: left and Yes straight leg raise positive left SACROILIAC JOINTS: Yes SI joint(s) abnormal (L TTP) Extremity: COMMON NORMALS: normal to inspection, full ROM, capillary refill normal, no calf tenderness and no pedal edema GENERAL: Yes normal exam except as noted Neuro: COMMON NORMALS: patient oriented x3, moves all extremities, no focal motor deficits and no sensory deficits noted SENSORIUM/ORIENTATION: Yes alert MOTOR EXAM: 5/5 motor strength present throughout Skin: COMMON NORMALS: no rashes or lesions noted GENERAL SKIN EXAM: no rashes or lesions noted Course Vital Signs: Vital signs: Vital Signs Temperature 98.3 F 11/09/21 20:37 Pulse Rate 77 11/09/21 20:37 Respiratory Rate 16 11/09/21 20:37 Blood Pressure 135/74 11/09/21 20:37 Pulse Oximetry 97 11/09/21 20:37 MDM - Back Pain/Injury MDM Narrative: Medical decision making narrative: Patient is much improved from initial presentation on re-examination. He feels comfortable going home at this point. Plan will be to continue current treatment plan with surgery scheduled with Dr. Mitchell on 12/06. Return to ED precautions verbally given to patient. Discharge Plan Discharge Patient Disposition: Home Clinical Impression: Acute exacerbation of chronic low back pain Condition: Stable Prescriptions: No Action diclofenac sodium 50 mg tablet,delayed release (DR/EC) 50 mg PO BID RF: 0 albuterol sulfate [ProAir HFA] 90 mcg/actuation HFA aerosol inhaler 1 - 2 puff INHALATION Q6H PRN (Reason: shortness of breath or wheezing) 30 Days Qty: 18 RF: 2 dicyclomine 10 mg capsule 10 mg PO QID PRN (Reason: abdominal discomfort) 30 Days Qty: 60 RF: 5 hydroxyzine HCl 50 mg tablet 50 mg PO QID PRN (Reason: anxiety) Qty: 120 RF: 2 trazodone 100 mg tablet 400 mg PO .HS PRN (Reason: insomnia) Qty: 120 RF: 2 Viibryd 40 mg tablet 40 mg PO QAM Qty: 30 RF: 2 buspirone 10 mg tablet 20 mg PO TID Qty: 180 RF: 2 (DME) blood-glucose meter [Accu-Chek Britany Plus Meter] Misc See Rx Instructions .Route Qty: 1 RF: 0 (DME) Accu-Chek Britany Plus test strp Strip See Rx Instructions .Route Qty: 100 RF: 1 (DME) lancets [Accu-Chek Softclix Lancets] Misc See Rx Instructions .Route Qty: 100 RF: 0 (DME) blood-glucose meter [Accu-Chek Guide Glucose Meter] Misc See Rx Instructions .Route Qty: 1 RF: 0 (DME) Accu-Chek Guide test strips Strip See Rx Instructions .Route Qty: 100 RF: 0 Lantus Solostar U-100 Insulin 100 unit/mL (3 mL) insulin pen See Rx Instructions .ROUTE .COMPLEX Qty: 15 RF: 0 metformin 500 mg tablet extended release 24 hr See Rx Instructions .ROUTE .COMPLEX Qty: 90 RF: 0 metoprolol succinate 50 mg tablet extended release 24 hr See Rx Instructions .ROUTE .COMPLEX Qty: 90 RF: 0 Farxiga 10 mg tablet See Rx Instructions .ROUTE .COMPLEX Qty: 90 RF: 0 pantoprazole 40 mg tablet,delayed release (DR/EC) See Rx Instructions .ROUTE .COMPLEX Qty: 90 RF: 0 bupropion HCl [Wellbutrin XL] 150 mg tablet extended release 24 hr 150 mg PO QAM Qty: 30 RF: 2 Discharge Orders: Discharge ED (Routine); Ordered 11/09/21 Ordered By: Morenita Mclaughlin Referrals: Ofe Paula, [facility] [Primary Care Provider] - Coding Level of Care Code ED Mathematical Technician for Chg Fwd Exam Detailed
[2021-11-09] MEDS: morphine 4 mg/mL SDV 1 mL IM (22:37)
[2021-11-09] MEDS: ketorolac 60 mg/2 mL INJ IM (22:37)
[2021-11-09] MEDS: orphenadrine 30 mg/mL Inj 2 mL 60 MG IM (22:38)
[2021-11-09 23:36] VITALS: RESP 18
== END 2021-11-09 23:38 | disposition home or self-care (01) ==
PROVIDERS: Emergency Provider Physician Assistant; PCP Registered Nurse
DX: G89.29 Other chronic pain (principal); M54.50 Low back pain, unspecified; Z79.84 Long term (current) use of oral hypoglycemic drugs; Z79.4 Long term (current) use of insulin; E78.5 Hyperlipidemia, unspecified; I10 Essential (primary) hypertension; E11.9 Type 2 diabetes mellitus without complications; Z77.22 Contact with and (suspected) exposure to environmental tobacco smoke (acute) (chronic)
CPT/HCPCS: 96372; 99283; J1885; J2270; J2360

== ENCOUNTER → 2021-11-29 09:04 | Day surgery (SDC) | payer MEDICARE, MEDICAID, SELFPAY | PROVIDERS: PCP Registered Nurse; Visit Provider Orthopaedic Surgery | DX: N18.31 Chronic kidney disease, stage 3a (principal) | CPT/HCPCS: 93005 ==

== ENCOUNTER → 2021-11-30 08:52 | Outpatient (BNVA) | payer MEDICARE, MEDICAID, SELFPAY | PROVIDERS: PCP Registered Nurse; Visit Provider Registered Nurse | DX: Z20.822 Contact with and (suspected) exposure to COVID-19 (principal); M54.12 Radiculopathy, cervical region | CPT/HCPCS: 87635 ==

== ENCOUNTER 2021-12-06 13:22 | Inpatient (IN) | payer MEDICARE, MEDICAID, SELFPAY ==
[2021-11-29 10:01] VITALS: BMI 28.1
--- NOTE | 2021-11-29 10:10 | ECG_ITS ---
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 Measurements Intervals [place] Rate: 68 P: 42 IN: 191 QRS: 76 QRSD: 106 T: 40 QT: 388 QTc: 415 Interpretive Statements SINUS RHYTHM Compared to ECG 01/22/2021 18:34:00 Ventricular premature complex(es) no longer present T-wave abnormality no longer present Electronically Signed On 11-30-2021 5:31:39 CHEMISTRY TECHNICIAN by Andreea Harrell M.D. [id number]
[2021-11-29 10:54] LABS: Basophils # 0.1 10^3/uL (0.0-0.1); Basophils % 0.7 %; Eosinophils # 0.2 10^3/uL (0.0-0.8); Eosinophils % 2.4 %; Hematocrit 41.2 % (42.0-52.0); Hemoglobin 12.3 g/dL (11.7-16.6); Lymphocytes # 2.8 10^3/uL (0.8-4.8); Lymphocytes % 41.7 %; Mean Corpuscular HGB Conc 29.9 g/dL (30.0-36.0); Mean Corpuscular Hemoglobin 23.4 pg (28.0-34.0); Mean Corpuscular Volume 78.3 fl (80-94); Mean Platelet Volume 10.4 fL (7.4-10.4); Monocytes # 0.8 10^3/uL (0.2-0.9); Monocytes % 12.2 %; Neutrophils # 2.86 10^3/uL (1.8-7.7); Neutrophils % 42.7 %; Nucleated Red Blood Cells % 0 %; Platelet Count 304 10^3/cmm (130-400); Red Blood Count 5.26 10^6/uL (4.1-5.3); Red Cell Distribution Width 15.3 % (12.1-15.1); White Blood Count 6.7 10^3/uL (4.0-10.0)
[2021-11-29 11:17] LABS: Anion Gap 16.4 (5-19); Blood Urea Nitrogen 14 mg/dL (6-20); Calcium 8.8 mg/dL (8.5-10.5); Carbon Dioxide 23 mmol/L (22-29); Chloride 105 mmol/L (98-107); Glomerular Filtration Rate 65.5 mL/min (90-130); Glucose 115 mg/dL (65-115); Osmolality Calculated 291 mOsm/kg (285-295); Potassium 4.4 mmol/L (3.5-5.1); Sodium 140 mmol/L (136-145)
--- NOTE | 2021-11-29 12:33 | ANES.PREANE2 ---
Pre-Anesthetic Assessment Height/Weight: Height 1.7 m Weight 81.647 kg Preop Diagnosis: Posterior cervical wound dehiscence Operation Date: 12/06/21 07:00 Proposed Procedures p Posterior Lumbar Interbody Fusion [id number]/m43.10(Not Applicable) - Darius Mitchell DO Familial anesthetic complications: None Was Beta Gucci taken within 24 hours: Yes Was Clonidine taken within 24 hours: N/A Social Tobacco and No alcohol Exam alert, oriented x 3, clear to auscultation bilaterally and regular rate & rhythm Airway Submandibular: within normal limits Cervical ROM: within normal limits and Other Mallampati: Class II Dentition: false Pulmonary Chronic Obstructive Pulmonary Disease CV/HEM Coronary Artery Disease and Hypertension GI Gastroesophageal Reflux Disease Metabolic Diabetes Mellitus Musc/skel Lower Back Pain and Osteoarthritis/DJD Chronic pain Anesthetic Plan ASA status: 3 Anesthesia: General Risk of > 500 ml blood loss (7ml/kg in children): No Medications/Allergies Home Medications Medication Instructions Recorded Confirmed Last Taken Type albuterol sulfate 90 mcg/actuation 1 - 2 puff INHALATION Q6H PRN 30 03/30/20 11/29/21 01/04/21 Rx aerosol inhaler (ProAir HFA) Days #18 gm dicyclomine 10 mg capsule 10 mg PO QID PRN 30 Days #60 cap 10/12/20 11/29/21 01/21/21 Rx blood sugar diagnostic (Accu-Chek #100 ea 05/06/21 11/08/21 Unknown Rx Britany Plus test strp) blood-glucose meter (Accu-Chek #1 ea 05/06/21 11/08/21 Unknown Rx Britany Plus Meter) lancets (Accu-Chek Softclix #100 ea 05/06/21 11/08/21 Unknown Rx Lancets) blood-glucose meter (Accu-Chek #1 ea 05/10/21 11/08/21 Unknown Rx Guide Glucose Meter) blood sugar diagnostic (Accu-Chek #100 ea 05/11/21 11/08/21 Unknown Rx Guide test strips) insulin glargine 100 unit/mL (3 See Rx Instructions .ROUTE 08/26/21 11/29/21 Unknown Rx mL) subcutaneous pen (Lantus .COMPLEX #15 ml Solostar U-100 Insulin) metformin 500 mg tablet,extended See Rx Instructions .ROUTE 09/21/21 11/29/21 Unknown Rx release 24 hr .COMPLEX #90 tab bupropion HCl 150 mg 24 hr tablet, 150 mg PO QAM #30 tab 11/05/21 11/29/21 Unknown Rx extended release (Wellbutrin XL) buspirone 10 mg tablet 20 mg PO TID #180 tab 11/08/21 11/29/21 Unknown Rx hydroxyzine HCl 50 mg tablet 50 mg PO QID PRN #120 tab 11/08/21 11/29/21 Unknown Rx trazodone 100 mg tablet 400 mg PO .HS PRN #120 tab 11/08/21 11/29/21 Unknown Rx vilazodone 40 mg tablet (Viibryd) 40 mg PO QAM #30 tab 11/08/21 11/29/21 Unknown Rx Bedside Commode #1 ea 11/12/21 Unknown Rx Rolling Walker #1 ea 11/12/21 Unknown Rx dapagliflozin 10 mg tablet See Rx Instructions .ROUTE 11/16/21 11/29/21 Unknown Rx (Farxiga) .COMPLEX #100 tab metoprolol succinate 50 mg 50 mg PO DAILY 11/29/21 11/29/21 Unknown History tablet,extended release 24 hr pantoprazole 40 mg tablet,delayed 40 mg PO DAILY 11/29/21 11/29/21 Unknown History release Allergies Allergy/AdvReac Type Severity Reaction Status Date / Time adhesive tape Allergy Severe rash Verified 11/08/21 11:46 Sulfa (Sulfonamide Allergy Severe unknown Verified 11/08/21 11:46 Antibiotics) tramadol Allergy Severe itch Verified 11/08/21 11:46 pregabalin [From Lyrica] Allergy Intermediate itching/ Verified 11/08/21 11:46 rash acetaminophen [From Tylenol] AdvReac Severe ALGY-Swell Verified 11/08/21 11:46 Lip/Tongue/Throat [facility] Anesthesia Medical History ADD (attention deficit disorder) Angina decubitus Asthma Carpal tunnel syndrome Chest pain Chronic pain syndrome GERD (gastroesophageal reflux disease) Hematuria History of hepatitis Hyperlipidemia Hypertension Irritable bowel syndrome Peptic ulcer disease Pneumothorax Psychiatric care Seasonal allergies Staphylococcal infection of skin Tobacco use Type 2 diabetes mellitus Surgical History H/O chest tube placement H/O neck surgery H/O wrist surgery R History of back surgery History of carpal tunnel surgery L Family History Family/Other No problems noted. Other Adopted Social History Quit status (tobacco): not considering quitting Second hand smoke exposure: Yes Smoking risk assessment/counseling performed?: No Alcohol intake: former Desire information about alcohol rehabilitation?: No Lives independently: Yes Household members: spouse Marital status: Current occupational status: unemployed History of recent travel: No Current gender identity: Male Data Anesthesia : 11/29/21 10:30 11/29/21 10:30 Short CBC 11/29/21 Range/Units 10:30 WBC 6.7 (4.0-10.0) 10^3/uL Hgb 12.3 (11.7-16.6) g/dL Hct 41.2 L (42.0-52.0) % MCV 78.3 L (80-94) fl Plt Count 304 (130-400) 10^3/cmm Neut % (Auto) 42.7 % Neut # (Auto) 2.86 (1.8-7.7) 10^3/uL BMP 11/29/21 10:30 Sodium 140 Potassium 4.4 Chloride 105 Carbon Dioxide 23 BUN 14 Creatinine 1.2 Glucose 115 Calcium 8.8 Cardiac Studies: Echocardiogram Ultrasound 05/11/20
[2021-12-06] VITALS (22 sets, daily range): BP systolic 97–141; BP diastolic 60–101; PULSE 65–100; RESP 16–23; TEMP 36.3–37.2; O2SAT 94–100; BMI 29.9
--- NOTE | 2021-12-06 | SCC_ITS ---
Procedure done: 1. L4/5 Interbody fusion with posterolateral fusion 2. Instrumentation L4/5 3. Cage at L4/5 4. Laminectomy L4 5. use of autograft from same incision 6. allograft 7. Bone marrow aspirate from right iliac crest 8. Use of computer navigation/ stereotactic for spine 13 seconds of fluoroscopic guidance, for a cumulative dose of 42.9 mGy, was provided to Dr. Mitchell by the radiology department. C-arm images of the lumbar spine were saved for the patient's permanent record. YAZAN
--- NOTE | 2021-12-06 | XR_ITS ---
WS: [id number] INTRAOPERATIVE TECHNIQUE: 4 Spot fluoroscopic images for intraoperative purposes. FLUOROSCOPY TIME: 22 seconds CLINICAL INFORMATION: Spondylolithesis COMPARISON: None. FINDINGS: Pedicle screw fixation L4-L5 with interbody fusion graft. Localization markers dorsally over the L5-S 1 interspace on the last image XR/XR lumbar spine 1V [id number] IMPRESSION: Images obtained for intraoperative purposes.
--- NOTE | 2021-12-06 08:11 | P.ANESUD_ITS ---
Pre-Anesthetic Update Pre-Anesthetic Assessment: Date of Surgery/Procedure: 12/06/21 Preop Mary Ellen gnosis: L4-5 Spondylolisthesis Proposed Procedure: Operation Date: 12/06/21 09:00 Proposed Procedures p Posterior Lumbar Interbody Fusion [id number]/m43.10(Not Applicable) - Darius Mitchell, DO Any changes to Pre-Anesthetic Assessment?: No Vitals: Temperature 98.0 F 12/06/21 07:35 Pulse Rate 65 12/06/21 07:35 Pulse Rhythm 12/06/21 07:50 Pulse Strength 3+ Normal 12/06/21 07:50 Respiratory Rate 16 12/06/21 07:35 Blood Pressure 117/72 12/06/21 07:35 Blood Pressure Ella n 87 12/06/21 07:35 Pulse Oximetry 99 12/06/21 07:35 Oxygen Delivery Me thod 12/06/21 07:50 Exam: Pre-Anes Outpt Exam: alert, oriented x 3, clear to auscultation bilaterally and regular rate & rhythm Other Pertinent Information: Other Pertinent Information: Metoprolol last taken 12/06/21 Cardiac Studies: Echocardiogram Ultrasound 05/11/20
--- NOTE | 2021-12-06 08:27 | PM.HP ---
Providers/Chief Complaint Primary Care Provider: MIKEY Lucero Chief Complaint: spondylolithesis History of Present Illness Chris Junior is a 46 year old male back pain. He states he has been seeing a [facility] provider, Dr. Burton. He denies any suicidal thoughts or ideation. He rates his pain a 3/10 today. He complains of stabbing pain to his low back that radiates into his bilateral legs. He also notes numbness and tingling to his bilateral feet. Last A1C 6.5 dated 04/08/21. He states his pain keeps him up at night.His leg pain is now mostly left sided. Review of Systems Narrative: General ROS: negative for weight changes, fever ENT ROS: negative for nasal congestion, drainage or bleeding, sore throat, dysphagia or ear pain Eyes: PERRL Hematological and Lymphatic ROS: negative for swollen glands or abnormal bleeding Endocrine ROS: negative for polyuria/polydpsia or new changes in weight Respiratory ROS: negative for cough, shortness of breath, or wheezing Cardiovascular ROS: negative for chest pain or dyspnea on exertion Gastrointestinal ROS: negative for reflux, abdominal pain, change in bowel habits, or black or bloody stools Musculoskeletal ROS: negative for back pain, neck pain, or joint pain or swelling except for current problem Neurological ROS: negative for TIA or stoke symptoms Skin: no rashes Medications/Allergies Home Medications Medication Instructions Recorded Confirmed Last Taken Type albuterol sulfate 90 mcg/actuation 1 - 2 puff INHALATION Q6H PRN 30 03/30/20 12/06/21 12/05/21 Rx aerosol inhaler (ProAir HFA) Days #18 gm dicyclomine 10 mg capsule 10 mg PO QID PRN 30 Days #60 cap 10/12/20 12/06/21 11/29/21 Rx blood sugar diagnostic (Accu-Chek #100 ea 05/06/21 11/08/21 Unknown Rx Britany Plus test strp) blood-glucose meter (Accu-Chek #1 ea 05/06/21 11/08/21 Unknown Rx Britany Plus Meter) lancets (Accu-Chek Softclix #100 ea 05/06/21 11/08/21 Unknown Rx Lancets) blood-glucose meter (Accu-Chek #1 ea 05/10/21 11/08/21 Unknown Rx Guide Glucose Meter) blood sugar diagnostic (Accu-Chek #100 ea 05/11/21 11/08/21 Unknown Rx Guide test strips) insulin glargine 100 unit/mL (3 See Rx Instructions .ROUTE 08/26/21 12/06/21 12/04/21 20:00 Rx mL) subcutaneous pen (Lantus .COMPLEX #15 ml Solostar U-100 Insulin) metformin 500 mg tablet,extended See Rx Instructions .ROUTE 09/21/21 12/06/21 12/05/21 08:00 Rx release 24 hr .COMPLEX #90 tab bupropion HCl 150 mg 24 hr tablet, 150 mg PO QAM #30 tab 11/05/21 12/06/21 12/05/21 Rx extended release (Wellbutrin XL) buspirone 10 mg tablet 20 mg PO TID #180 tab 11/08/21 12/06/21 12/05/21 20:00 Rx hydroxyzine HCl 50 mg tablet 50 mg PO QID PRN #120 tab 11/08/21 12/06/21 12/05/21 20:00 Rx trazodone 100 mg tablet 400 mg PO .HS PRN #120 tab 11/08/21 12/06/21 12/04/21 Rx vilazodone 40 mg tablet (Viibryd) 40 mg PO QAM #30 tab 11/08/21 12/06/21 12/05/21 Rx Bedside Commode #1 ea 11/12/21 Unknown Rx Rolling Walker #1 ea 11/12/21 Unknown Rx dapagliflozin 10 mg tablet See Rx Instructions .ROUTE 11/16/21 12/06/21 12/05/21 07:00 Rx (Farxiga) .COMPLEX #100 tab metoprolol succinate 50 mg 50 mg PO DAILY 11/29/21 12/06/21 12/06/21 05:00 History tablet,extended release 24 hr pantoprazole 40 mg tablet,delayed 40 mg PO DAILY 11/29/21 12/06/21 12/05/21 History release quetiapine 100 mg tablet (Seroquel) 100 mg PO DAILY 11/30/21 12/06/21 12/04/21 20:00 History tizanidine 4 mg tablet 4 mg PO DAILY 90 Days #90 tab 11/30/21 12/06/21 12/05/21 09:00 Rx Allergies Allergy/AdvReac Type Severity Reaction Status Date / Time adhesive tape Allergy Severe rash Verified 11/08/21 11:46 Sulfa (Sulfonamide Allergy Severe unknown Verified 11/08/21 11:46 Antibiotics) tramadol Allergy Severe itch Verified 11/08/21 11:46 pregabalin [From Lyrica] Allergy Intermediate itching/ Verified 11/08/21 11:46 rash acetaminophen [From Tylenol] AdvReac Severe ALGY-Swell Verified 11/08/21 11:46 Lip/Tongue/Throat PFSH Acute PFSH: Medical History ADD (attention deficit disorder) Angina decubitus Asthma Carpal tunnel syndrome Chest pain Chronic pain syndrome GERD (gastroesophageal reflux disease) Hematuria History of hepatitis Hyperlipidemia Hypertension Irritable bowel syndrome Peptic ulcer disease Pneumothorax Psychiatric care Seasonal allergies Staphylococcal infection of skin Tobacco use Type 2 diabetes mellitus Surgical History H/O chest tube placement H/O neck surgery H/O wrist surgery R History of back surgery History of carpal tunnel surgery L Family History Family/Other No problems noted. Other Adopted Social History Smoking and tobacco status: never smoked Quit status (tobacco): not considering quitting Second hand smoke exposure: Yes Smoking risk assessment/counseling performed?: No Alcohol intake: former Desire information about alcohol rehabilitation?: No Lives independently: Yes Household members: spouse Marital status: Current occupational status: unemployed History of recent travel: No Current gender identity: Male Vitals/I&O/Wt Last Vital Signs Temp 98.0 F 12/06/21 07:35 Pulse 65 12/06/21 07:35 Resp 16 12/06/21 07:35 BP 117/72 12/06/21 07:35 Pulse Ox 99 12/06/21 07:35 Physical Exam Narrative: CONSTITUTIONAL: The patient is a normal appearing [] in no apparent distress. GENERAL: Patient in no acute distress. CARDIAC: Regular rate and rhythm. CHEST: Normal inspiratory effort, normal respiratory rate. ABDOMEN: Soft and nontender. SKIN: Clear, warm and intact. NEURO?PSYCH: The patient is alert and oriented to person, place and time. Sensorv /SILT Motor StrengthShoulder abduction C5 5/5Wrist extension C6 5/5Elbow extension C7 5/5Hand Contract Post Office Clerk C8 5/5Finger abduction T15/5 Radial/ Ulnar/ Median n intact LowerSensory (SILT)Motor StrengthHin flexion L2/3Ant/inner thigh 5/5Hip adduction L2/3 5/5Knee extension L4 Lat thigh, 5/5Toe dorsiflexion L5 5/5Ankle dorsiflexion L5/ K51Nduugfj flexion S1 5/5 DTRBleeps 2+Triceps 2+Brachioradialis 2+Patellar 2+Achilles 2+ MUSCULOSKELETAL: [] UPPEREXTREMITIES: The patient had full active ROM in fingers, wrist, elbow, and shoulder. The patient demonstrated ability to fully flex/extend/abduct/adduct fingers, make ok sign, cross 2nd/3rd digits, extend 1st digit fully.. Radial pulse 2+, CR<2 seconds. LOWER EXTREMITIES: Pt has full, active ROM of toes, ankle, knee, and hip. Dorsalis pedis/posterior tibialis pulses 2+, CR<2 seconds. SPINE: Skin warm, dry, intact. Data : 11/29/21 10:30 11/29/21 10:30 A&P Assessment and plan (1) Spondylolisthesis at L4-L5 level: L4/5 PLIF Status: Acute Attestations Medical Necessity Statement*: failed conservative tx Coding Level of Care Code Acute Supervisor Grips for [facility] Diagnoses Spondylolisthesis at L4-L5 level M43.16
[2021-12-06] MEDS: sodium chloride 0.9% 1,000 ML 30 ML IV (08:34)
[2021-12-06 08:42] LABS: Glucose Point of Care 142 mg/dL (70-110)
[2021-12-06] MEDS: midazolam 1 mg/mL INJ 2 mL 2 MG IVP (08:49)
[2021-12-06] MEDS: heparin, porcine 1,000 unit/mL INJ 10 mL 10000 UNIT IRRIGATION (09:54)
[2021-12-06] MEDS: vancomycin 1,000 MG SDV 2000 MG XX (09:54)
--- NOTE | 2021-12-06 11:58 | P.OP_ITS ---
Operative Report Date of procedure: December 06, 2021 Pre-op diagnosis: Preop Diagnosis L4-5 Spondylolisthesis Post-op diagnosis: same Procedure done: 1. L4/5 Interbody fusion with posterolateral fusion 2. Instrumentation L4/5 3. Cage at L4/5 4. Laminectomy L4 5. use of autograft from same incision 6. allograft 7. Bone marrow aspirate from right iliac crest 8. Use of computer navigation/ stereotactic for spine Surgeon: Darius Mitchell Cryptologic Technician Operator/Analyst: Benigno Denton Estimated blood loss (mL): 100 Procedure: 1. L4/5 Interbody fusion with posterolateral fusion 2. Instrumentation L4/5 3. Cage at L4/5 4. Laminectomy L4 5. use of autograft from same incision 6. allograft 7. Bone marrow aspirate from right iliac crest 8. Use of computer navigation/ stereotactic for spine Patient is brought to the operative suite. After undergoing anesthesia, the patient had neuro monitoring attached. Patient was then placed in the prone position on the Ronny table. All areas of impingement were well-padded. Patient was then prepped and draped in the normal sterile fashion. Skin incision was then made over the L4/5 disk space. Subperiosteal dissection was made out to the transverse processes of L4 and L5. Once the exposure was complete attention was then brought to the bone marrow aspirate. Prior to placing the pedicle screws the [employer] bone marrow aspirate kit was used to aspirate bone marrow aspirate from the right iliac crest. This was done by using the sharp probe to open up the bone. Aspiration was performed and then the blunt probe was then used to dissect down to through the bone tunnel. An aspirating well drawn back a millimeter approximately 20 cc of bone marrow aspirate was used. Andmixed with the allograft and autograft bone that will be used. Next the fiducials were placed for the computer navigation. 2 pins were placed in the right iliac crest. The fiducial was attached. The C arm was brought in and spun around the patient. The information was linked to the computer in order to facilitate using computer navigation for the case and placing the pedicle screws. The technique for placing the pedicle screws was to use a drill followed by the gearshift probe linked to computer navigation. Followed by the ball probe to feel the superior inferior medial lateral leblanc of the pedicles using the computer navigation Then placement of the screws. Was done at each pedicle. Screws were placed at L4 bilaterally and L5 bilaterally Next attention was brought to performing the laminectomy ofL5. This was done using the high-speed bur Kerrisons and curettes. Once the lamina was removed and then attention was brought to performing a partial facetectomy on the contralateral side. This was done again using the high-speed bur curettes and Kerrisons. The ligamentum flavum was taken down bilaterally from L4 to L5. Attention was then brought to the facet on the ipsilateral side. The facet was taken down. The L5 nerve was decompressed as it passed around the L5 pedicle. The laminectomy was done for purposes of decompressing the nerve as well as placement of the cage. The L4 nerve was identified as it traversed through the L4/5 foramen. The thecal sac was identified and retracted. The L4/5 disc base was identified. Using a knife the disc base was opened. And then sequential lyubov were placed. The first shaver was a 6 and the last shaver was a 10. Using a pituitary and down going curette the endplates were scraped and disc material was removed from the space. Once adequate decompression of the disc base was felt to be had. Osteoamp sponge was packed into the anterior aspect of the disc base. Then a size 10 cage from [employer] was placed after packing osteoamp into the cage. While placing the cage the thecal sac and L5 nerve was protected. C arm was used to ensure that the cages placed in the appropriate position. Attention was then brought to attaching the rods to the screws placed in the L4 and L5 bilaterally. Caps were torqued into position. Locking the construct in place. Wound was copiously irrigated and then attention was brought to decorticating the facets and transverse processes laterally. Bone that was taken down from the lamina was used along with osteoamp fibers and sponges were packed into the lateral gutters along the facet joints. This was done bilaterally. Wound was then closed in a layered fashion starting with the thoracolumbar fascia. 0-vicryl was used the sub cutaneous tissue was closed with 2-0 vicryl and skin with 4-0 monocryl. Glue was then used to seal the skin and a steril dressing was applied. Patient was then placed in the supine position. The endotracheal tube was removed and patient was transferred to the PACU in stable condition.
[2021-12-06] MEDS: HYDROmorphone 1 mg/mL INJ 1 mL 0.5 MG IVP ×3 (12:18→12:51)
[2021-12-06] MEDS: morphine 4 mg/mL SDV 1 mL 2 MG IVP ×3 (14:22→23:32)
[2021-12-06] MEDS: ketorolac 30 mg/mL INJ IVP ×2 (15:05→22:02)
[2021-12-06] MEDS: BuSPIRONE 10 mg Tablet 20 MG PO ×2 (15:05→21:15)
[2021-12-06] MEDS: lactated ringers 1,000 ML 90 ML IV (15:06)
--- NOTE | 2021-12-06 15:51 | ANE.PACU2 ---
Inpatient post-anesthesia follow up: Airway intact: Yes Vital signs: Temperature 97.4 F Pulse Rate 86 Respiratory Rate 19 Blood Pressure 141/84 Pulse Oximetry 96 Oxygen Delivery Me thod Room Air Oxygen Flow Rate 8 Fraction of Inspir ed Oxygen Hydration adequate: Yes Nausea and vomiting: No Pain level: 5 Mental status: Baseline
[2021-12-06] MEDS: oxyCODONE 5 mg IR Tab/Cap PO ×2 (17:18→21:14)
[2021-12-06] MEDS: docusate sodium 100 mg Capsule PO (17:18)
[2021-12-06] MEDS: quetiapine 100 mg Tablet PO (21:14)
[2021-12-06] MEDS: insulin glargine 100 units/1 mL 30 UNIT SUBCUT (21:16)
[2021-12-06] MEDS: trazodone 100 mg Tablet 200 MG PO (23:31)
--- NOTE | 2021-12-06 23:47 | PC.NURSE ---
PAIN/C/O CALL LIGHT NOT WORKING Pts had called saying pt had had his call light on and noone was responding. Having alot of pain. Call light was not on and when in to room to check on pt he had been pushing wrong button. Instructed supervisor telephone answering service light use again. Says feels like his back is burning and is all stiffened up Talked with pt about standing and changing position to see if will help. Assisted pt with standing at side of bed and did help to stretch back out some. Back to bed and assisted to position on side with pillows for support. Medicated with IV Morphine by RN and also decided to take the Trazadone he had declined earlier for sleep.
[2021-12-07 01:08] VITALS: RESP 18
[2021-12-07] MEDS: oxyCODONE 5 mg IR Tab/Cap PO ×3 (01:08→09:48)
[2021-12-07] MEDS: hyDROXYzine 25 mg Capsule 50 MG PO (01:09)
[2021-12-07] MEDS: lactated ringers 1,000 ML 90 ML IV (01:12)
[2021-12-07] MEDS: morphine 4 mg/mL SDV 1 mL 2 MG IVP ×2 (04:05→08:14)
[2021-12-07 04:17] VITALS: BP 91/42; PULSE 86; RESP 17; TEMP 37.2; O2SAT 90
[2021-12-07 05:26] VITALS: RESP 16
[2021-12-07] MEDS: buPROPion XL (24 HR) 150 mg Tablet PO ×2 (05:26→08:15)
[2021-12-07 08:00] VITALS: BP 103/62; PULSE 74; RESP 18; TEMP 36.9; O2SAT 97
--- NOTE | 2021-12-07 08:08 | PM.PN ---
Subjective Subjective: POD 1 Patient complains of low back pain. Both legs feel different. Denies any chest pain, shortness of breath, headaches. Vitals/I&O/Wt Last Vital Signs Temp 98.9 F 12/07/21 04:17 Pulse 86 12/07/21 04:17 Resp 16 12/07/21 05:26 BP 91/42 12/07/21 04:17 Pulse Ox 90 12/07/21 04:17 12/06/21 12/07/21 12/07/21 22:59 06:59 14:59 Intake Total 300 / 1360 1269 / 2629 Output Total 400 / 750 Balance 300 / 1010 869 / 1879 Weight last 48 hrs Weight 191 lb 6 oz Physical Exam Narrative: Patient presents alert and oriented x3 with a good general appearance normal normal affect. Normal coordination normal stability. Mild tenderness around the incisional site with the incision appear to be clean and dry. No signs of erythema or drainage. No signs of infection. Patient denies any fevers or chills. 5/5 motor strength both lower extremities with negative straight leg raise bilaterally. Calves are supple no medial thigh tenderness. Pulses are 2+ at the dorsalis pedis and posterior tibial region. Good capillary refill throughout normal sensation light touch both lower extremities. Urinary Catheter Management: Robertson: Cath Placed During This Visit: yes Reason for Continuing Indwelling Catheter: Perioperative Use in Selected Surgeries Urinary Catheter Date of Insertion: 12/06/21 Urinary Catheter Time of Insertion: 09:22 Data : 11/29/21 10:30 11/29/21 10:30 A&P Assessment and plan (1) Status post lumbar spinal fusion: Discontinue the Robertson catheter and Hemovac drains. Physical therapy eval and treat. Discharge later today. Continue walking program with no bending lifting or twisting activities. See him back in the office in 1 to 2 weeks for wound check. Status: Acute Attestations Medical Necessity Statement*: home later today Coding Level of Care Code Acute Street Supervisor for Marcos Fwd Diagnoses Status post lumbar spinal fusion Z98.1
[2021-12-07] MEDS: BuSPIRONE 10 mg Tablet 20 MG PO (08:15)
[2021-12-07] MEDS: docusate sodium 100 mg Capsule PO (08:15)
[2021-12-07] MEDS: tizanidine 4 mg Tablet PO (08:15)
[2021-12-07] MEDS: pantoprazole DR 40 mg Tablet PO (08:15)
[2021-12-07] MEDS: metoprolol succinate ER (24 HR) 50 mg Tablet PO (08:15)
[2021-12-07] MEDS: metformin XR 500 MG Tablet PO (10:07)
--- NOTE | 2021-12-07 10:51 | PC.NURSE ---
Removed hemovac drain from right lower back. No output noted. 2x2 and tegaderma applied.
[2021-12-07 12:03] VITALS: BP 103/62; PULSE 74; RESP 18; TEMP 36.9; O2SAT 97
--- NOTE | 2021-12-09 14:16 | P.DS_ITS ---
Discharge Providers Date of Admission: 12/06/21 13:22 Date of Discharge: December 07, 2021 Attending Provider at Admission: Darius Mitchell DO Attending Provider at Discharge: Darius Mitchell DO Primary Care Provider: MIKEY Lucero Diagnoses at Discharge Discharge Diagnosis (1) Status post lumbar spinal fusion: Status: Acute Reason for Visit Reason for Visit: spondylolithesis Hospital Course Hospital Course Uneventful Physical Exam Urinary Catheter Management: Robertson: Cath Placed During This Visit: yes, but has since been removed by the nurse Reason for Continuing Indwelling Catheter: Decision to DC Catheter Urinary Catheter Date of Insertion: 12/06/21 Urinary Catheter Time of Insertion: : Date Urinary Catheter Removed: 12/07/21 Time Urinary Catheter Discontinued: 09:00 Discharge Data Studies Completed and Pending Completed Studies During Hospitalization Category Date Time Status XR lumbar spine 1V 12501 Routine Exams 12/06/21 Completed Radiology Impressions Lumbar Spine X-Ray 12/06/21 00:00 IMPRESSION: Images obtained for intraoperative purposes. Laboratory Results WBC 6.7 10^3/uL (4.0-10.0) 11/29/21 10:30 RBC 5.26 10^6/uL (4.1-5.3) 11/29/21 10:30 Hgb 12.3 g/dL (11.7-16.6) 11/29/21 10:30 Hct 41.2 % (42.0-52.0) L 11/29/21 10:30 MCV 78.3 fl (80-94) L 11/29/21 10:30 MCH 23.4 pg (28.0-34.0) L 11/29/21 10:30 MCHC 29.9 g/dL (30.0-36.0) L 11/29/21 10:30 RDW 15.3 % (12.1-15.1) H 11/29/21 10:30 Plt Count 304 10^3/cmm (130-400) 11/29/21 10:30 MPV 10.4 fL (7.4-10.4) 11/29/21 10:30 Neut % (Auto) 42.7 % 11/29/21 10:30 Lymph % (Auto) 41.7 % 11/29/21 10:30 [place] % (Auto) 12.2 % 11/29/21 10:30 Eos % (Auto) 2.4 % 11/29/21 10:30 Baso % (Auto) 0.7 % 11/29/21 10:30 Neut # (Auto) 2.86 10^3/uL (1.8-7.7) 11/29/21 10:30 Lymph # (Auto) 2.8 10^3/uL (0.8-4.8) 11/29/21 10:30 [place] # (Auto) 0.8 10^3/uL (0.2-0.9) 11/29/21 10:30 Eos # (Auto) 0.2 10^3/uL (0.0-0.8) 11/29/21 10:30 Baso # (Auto) 0.1 10^3/uL (0.0-0.1) 11/29/21 10:30 Nucleated RBC % (auto) 0 % 11/29/21 10:30 Nucleated RBCs # 0.0 /100WBC 11/29/21 10:30 Sodium 140 mmol/L (136-145) 11/29/21 10:30 Potassium 4.4 mmol/L (3.5-5.1) 11/29/21 10:30 Chloride 105 mmol/L (98-107) 11/29/21 10:30 Carbon Dioxide 23 mmol/L (22-29) 11/29/21 10:30 Anion Gap 16.4 (5-19) 11/29/21 10:30 BUN 14 mg/dL (6-20) 11/29/21 10:30 Creatinine 1.2 mg/dL (0.7-1.2) 11/29/21 10:30 GFR Calculation 65.5 mL/min (90-130) L 11/29/21 10:30 Glucose 115 mg/dL (65-115) 11/29/21 10:30 POC Glucose 142 mg/dL (70-110) H 12/06/21 08:18 Calculated Osmolality 291 mOsm/kg (285-295) 11/29/21 10:30 Calcium 8.8 mg/dL (8.5-10.5) 11/29/21 10:30 Blood Type A Positive 12/06/21 08:15 Rho(D) Type Positive 12/06/21 08:15 Antibody Screen Negative 12/06/21 08:15 Vitals Last Vital Signs Temp 98.4 F 12/07/21 12:03 Pulse 74 12/07/21 12:03 Resp 18 12/07/21 12:03 BP 103/62 12/07/21 12:03 Pulse Ox 97 12/07/21 12:03 Discharge Plan Discharge Patient Disposition: Home Condition: Stable Prescriptions: New oxycodone 5 mg tablet 5 - 10 mg PO Q4H PRN (Reason: pain) 7 Days Qty: 40 0RF Continued albuterol sulfate [ProAir HFA] 90 mcg/actuation HFA aerosol inhaler 1 - 2 puff INHALATION Q6H PRN (Reason: shortness of breath or wheezing) 30 Days Qty: 18 2RF dicyclomine 10 mg capsule 10 mg PO QID PRN (Reason: abdominal discomfort) 30 Days Qty: 60 5RF hydroxyzine HCl 50 mg tablet 50 mg PO QID PRN (Reason: anxiety) Qty: 120 2RF trazodone 100 mg tablet 400 mg PO .HS PRN (Reason: insomnia) Qty: 120 2RF Rx Instructions: Take 2-4 tabs at night as needed. Viibryd 40 mg tablet 40 mg PO QAM Qty: 30 2RF buspirone 10 mg tablet 20 mg PO TID Qty: 180 2RF quetiapine [Seroquel] 100 mg tablet 100 mg PO DAILY 0RF tizanidine 4 mg tablet 4 mg PO DAILY 90 Days Qty: 90 0RF (DME) blood-glucose meter [Accu-Chek Britany Plus Meter] Misc See Rx Instructions .Route Qty: 1 0RF Rx Instructions: daily (DME) Accu-Chek Britany Plus test strp Strip See Rx Instructions .Route Qty: 100 1RF Rx Instructions: As directed (DME) lancets [Accu-Chek Softclix Lancets] Misc See Rx Instructions .Route Qty: 100 0RF Rx Instructions: As directed (DME) blood-glucose meter [Accu-Chek Guide Glucose Meter] Misc See Rx Instructions .Route Qty: 1 0RF Rx Instructions: As directed (DME) Accu-Chek Guide test strips Strip See Rx Instructions .Route Qty: 100 0RF Rx Instructions: test once daily Lantus Solostar U-100 Insulin 100 unit/mL (3 mL) insulin pen See Rx Instructions .ROUTE .COMPLEX Qty: 15 0RF Dose Instruction: INJECT 30 UNITS SUBCUTANEOUSLY AT BEDTIME Rx Instructions: INJECT 30 UNITS SUBCUTANEOUSLY AT BEDTIME metformin 500 mg tablet extended release 24 hr See Rx Instructions .ROUTE .COMPLEX Qty: 90 0RF Dose Instruction: TAKE 1 TABLET BY MOUTH IN THE MORNING Rx Instructions: TAKE 1 TABLET BY MOUTH IN THE MORNING bupropion HCl [Wellbutrin XL] 150 mg tablet extended release 24 hr 150 mg PO QAM Qty: 30 2RF (DME) Bedside Commode See Rx Instructions .Route .MEDSUPPLY Qty: 1 0RF Rx Instructions: As directed following Posterior Lumbar Interbody Fusion DOS: 12/06/21 (DME) Rolling Walker See Rx Instructions .Route .MEDSUPPLY Qty: 1 0RF Rx Instructions: As directed Posterior Lumbar Interbody Fusion DOS 12/06/21 Farxiga 10 mg tablet See Rx Instructions .ROUTE .COMPLEX Qty: 100 0RF Dose Instruction: TAKE 1 TABLET BY MOUTH ONCE DAILY IN THE MORNING Rx Instructions: TAKE 1 TABLET BY MOUTH ONCE DAILY IN THE MORNING Pt needs an A1C for more refills. metoprolol succinate 50 mg tablet extended release 24 hr 50 mg PO DAILY 0RF pantoprazole 40 mg tablet,delayed release (DR/EC) 40 mg PO DAILY 0RF Discharge Orders: Discharge Order (Routine); Ordered 12/07/21 Ordered By: Benigno Denton [place] [facility] [place] [Outside] Darius Mitchell DO [Physician] - 12/23/21 1:45 pm Discharge Diet: Advance as tolerated Discharge Activity: Limit activity as instructed Patient Instructions: Oxycodone, Rapid Release (By mouth), Lumbar Spinal Fusion (GEN), Opioid Safety Activity Restrictions/Additional Instructions: Thank you for choosing [facility] for your care! The following is a list of instructions, from your provider, to follow upon your discharge to ensure you have the optimal recovery from your recent injury or surgery. Follow-up care is a mo part of your treatment and safety. Be sure to make and go to all appointments and call your doctor if you are having problems. If you do not already have a follow-up appointment made, call Dr. Mitchell's] office in the next 1-3 days to make follow up appointment for [1-2] weeks at [phone]. It is also a good idea to know your test results and keep a list of the medicines you take. Medications will be prescribed for you at your provider's discretion. These medications are to be used as instructed; if they are taken more often that prescribed they will not be refilled early and in most cases will not be refilled at all. > When a refill is needed, you should contact marianna tatum 2-3 business days before your prescription runs out. Medications will NOT be refilled by stenocaptioner providers after hours! > Many pain medications contain Tylenol (Acetaminophen). Do not consume more than 4,000 mg of Tylenol per day in total with any combination of medications. > Pain medications can cause constipation. Please use an over the counter stool softener as directed, while taking pain medications. Consult your local pharmacist with questions or recommendations on stool softeners. If constipation persists, contact our office or your primary care provider. > While under our care, you are not to receive pain medications or other controlled substances from any other provider unless our office is notified and approves. Any attempts to do so will result in refusal to prescribe any further pain medications and possible dismissal from our practice. ? Walking is essential for the healing process after surgery. We would like you to slowly advance your walking. This should be done on relatively flat clear ground (inside or out) or can be done on a treadmill. Remember this goal does not have to happen all at once, slowly increase your distance and duration. This can be broken into more more than one walk per day as tolerated. Patients who walk as directed after surgery rarely require Phy sical Therapy. In the unlikely event this issue arises your provider will direct hospital staff to make the appropriate arrangements. ? No lifting over 5 pounds {a gallon of milk) or bending/twisting until further notice. Each of these activities places an unnecessary amount of stress onto the body and can impede the delicate healing process. > Instead of bending at the waist, keep your back straight and bend at the knees. > Instead of twisting your torso, keep your back straight and turn your entire body with your feet. ? You may sleep in any position which makes you comfortable. Many patients find comfort sleeping in a reclining chair. It is not abnormal to have difficulty sleeping for the first several weeks following your surgery. We recommend trying Benadry! or Tylenol PM as directed to help with your sleeping difficulties. Both medications are over the counter and available without prescription. ? NO SMOKING!!! Smoking dramatically increases the probability of developing postoperative wound infections. ? Common complaints after lumbar and/or thoracic spine surgery include, but are not limited to: numbness and/or tingling in the legs, pain around the incision and surrounding tissues, muscle spasms, or stiffness of the middle to low back. Contact our office if these symptoms persist or if an acute change occurs. ? No driving for the first 3-5days, and not while taking narcotics until seen at your follow-up appointment and cleared. There are no restrictions for riding on short trips, however if you take a longer trip, arrangements should be made to make regular stops to get out of the vehicle and stretch . ? Swelling is an unfortunate event that will take place with any surgery and is the primary source of your postoperative discomfort. While walking and regular approved activities helps control inflammation, there are additional steps you can take to minimize swelling. > Place ice over the surgical site and surrounding tissue for twenty minutes, followed by applying a low/medium heat (heating pad) for an additional twenty minutes every 1-2 hours as needed for painrelief. > You may use of over the counter anti-inflammatory medications (Ibuprofen, Motrin, Aleve, Advil, etc) as directed on the package label. These types of medicines will significantly reduce the amount of discomfort you experience after surgery from swelling. It should be noted that if you have and allergy to any of these medications, or a history of ulcers or kidney disease you should consult you primary care provider prior to starting these medications. Discharge Attestations Time Spent in Discharge Care*: less than 30 min Quality Metrics Clinical Quality Measures [ No reported AMI, CVA or VTE this stay] Coding Level of Care Code Acute Chg FW DC note Diagnoses Status post lumbar spinal fusion Z98.1
== END 2021-12-07 12:03 | disposition home health service (06) | DRG 460 ==
LOC: MEDSURG 16:26
PROVIDERS: Anesthesiology; Admitting Provider Orthopaedic Surgery; PCP Registered Nurse; Visit Provider Orthopaedic Surgery
PROC: 0SG00AJ Fusion of Lumbar Vertebral Joint with Interbody Fusion Device, Posterior Approach, Anterior Column, Open Approach (ICD-10-PCS; CPT 22612; principal; 2021-12-06 09:00)
DX: M43.16 Spondylolisthesis, lumbar region (principal); Z79.84 Long term (current) use of oral hypoglycemic drugs; Z79.4 Long term (current) use of insulin; F98.8 Other specified behavioral and emotional disorders with onset usually occurring in childhood and adolescence; G89.4 Chronic pain syndrome; K21.9 Gastro-esophageal reflux disease without esophagitis; E78.5 Hyperlipidemia, unspecified; I10 Essential (primary) hypertension; K58.9 Irritable bowel syndrome, unspecified; Z87.11 Personal history of peptic ulcer disease; F17.210 Nicotine dependence, cigarettes, uncomplicated; E11.9 Type 2 diabetes mellitus without complications
CPT/HCPCS: 36415; 36416; 51702; 72020; 76000; 80048; 82962; 85025; 86850; 86900; 96372; 97116; 97161; C1713; J0690; J1100; J1170; J1644; J1815; J1885; J2250; J2270; J2405; J2704; J3010; J3370; J3490; J7030

== ENCOUNTER 2021-12-10 20:42 | Emergency (ER) | payer MEDICARE, MEDICAID, SELFPAY ==
[2021-12-10 20:46] VITALS: BP 110/50; PULSE 81; RESP 16; TEMP 36.4; O2SAT 97; BMI 28.6
--- NOTE | 2021-12-10 20:55 | W.ED.BACK ---
HPI - Back Pain/Injury General: Chief Complaint: Back Pain/Injury Stated Complaint: back pain Time Seen by Provider: 12/10/21 20:44 Source: patient and EMS Mode of arrival: EMS Limitations: no limitations History of Present Illness: 46-year-old male has a long history of chronic back pain he had recently had low back surgery this week. He states he sat down with scared jumped up due to the sudden movement he start having severe low back pain he called EMS states pain is in his low back denies any bowel or bladder incontinence denies any saddle anesthesia states it is worse with movement. Associated symptoms: Deny abdominal pain, chills, dysuria, fever(s), nausea or vomiting Review of Systems Const: Denies: fever(s), chills, body aches or change in appetite Eyes: Denies: blurry vision or eye discomfort ENMT: Denies: throat pain or dental pain Card: Denies: chest pain Resp: Denies: dyspnea GI: Denies: abdominal pain, nausea, vomiting or diarrhea : Denies: dysuria Musc: Reports: back pain; Denies: neck pain Skin/Breast: Denies: rash Neuro: Denies: headache(s) Psych: Denies: depression Nba/Lymph: Denies: easy bruising All/Imm: Denies: urticaria PFSH ED PFSH: Medical History ADD (attention deficit disorder) Angina decubitus Asthma Carpal tunnel syndrome Chest pain Chronic pain syndrome GERD (gastroesophageal reflux disease) Hematuria History of hepatitis Hyperlipidemia Hypertension Irritable bowel syndrome Peptic ulcer disease Pneumothorax Psychiatric care Seasonal allergies Staphylococcal infection of skin Tobacco use Type 2 diabetes mellitus Surgical History H/O chest tube placement H/O neck surgery H/O wrist surgery R History of back surgery History of carpal tunnel surgery L Family History Family/Other No problems noted. Other Adopted Social History Smoking and tobacco status: never smoked Quit status (tobacco): not considering quitting Second hand smoke exposure: Yes Smoking risk assessment/counseling performed?: No Alcohol intake: former Desire information about alcohol rehabilitation?: No Lives independently: Yes Household members: spouse Marital status: Current occupational status: unemployed History of recent travel: No Current gender identity: Male Physical Exam Const: COMMON NORMALS: no acute distress, patient oriented x3 and healthy appearing HENMT: COMMON NORMALS: normocephalic and atraumatic HEAD & SCALP: normocephalic and atraumatic Eye: COMMON NORMALS: Equal, round and reactive pupils present and EOMs intact bilaterally PUPIL: Yes Equal, round and reactive pupils present Neck/C-Spine: COMMON NORMALS: full ROM and supple Chest: COMMONS NORMALS: normal inspection of the chest and normal palpation of entire chest wall Resp: COMMON NORMALS: normal respiratory effort, No retractions, No use of accessory muscles and clear to auscultation bilaterally AUSCULTATION: clear to auscultation bilaterally Cardio: COMMON NORMALS: regular rate, regular rhythm and No murmurs present (Cardio) RATE: regular rate RHYTHM: regular rhythm GI: COMMON NORMALS: Normal to inspection, nondistended, normoactive bowel sounds present, Soft to palpation, non-tender and no masses PALPATION: Yes Soft to palpation Back/Pelvis: OTHER: Incisions clean dry and intact no signs of infection no fluid collection no drainage no saddle anesthesia Extremity: COMMON NORMALS: normal to inspection and full ROM Neuro: COMMON NORMALS: patient oriented x3, moves all extremities and no focal motor deficits Psych: COMMON NORMALS: mental status grossly normal, Normal thought process present and cooperative THOUGHT PROCESS: Normal thought process present Skin: COMMON NORMALS: no rashes or lesions noted and no wounds GENERAL SKIN EXAM: no rashes or lesions noted Course Vital Signs: Vital signs: Vital Signs Temperature 97.6 F 12/10/21 20:46 Pulse Rate 81 12/10/21 21:31 Respiratory Rate 17 12/10/21 21:31 Blood Pressure 110/55 12/10/21 21:31 Pulse Oximetry 97 12/10/21 21:31 MDM - Back Pain/Injury Medical Decision Making Patient presents with back pain is chronic in nature also exacerbated from his previous surgery and him moving too quickly tonight he is no signs of any postsurgical complications no saddle anesthesia blood work here is all normal he feels much improved after Dilaudid he stable for discharge he is to follow-up with surgeon and return if worsening he understands agrees to plan. Labs : 12/10/21 20:55 12/10/21 20:55 Laboratory Results WBC 5.9 10^3/uL (4.0-10.0) 12/10/21 20:55 RBC 3.94 10^6/uL (4.1-5.3) L 12/10/21 20:55 Hgb 9.3 g/dL (11.7-16.6) L 12/10/21 20:55 Hct 31.1 % (42.0-52.0) L 12/10/21 20:55 MCV 78.9 fl (80-94) L 12/10/21 20:55 MCH 23.6 pg (28.0-34.0) L 12/10/21 20:55 MCHC 29.9 g/dL (30.0-36.0) L 12/10/21 20:55 RDW 16.5 % (12.1-15.1) H 12/10/21 20:55 Plt Count 243 10^3/cmm (130-400) 12/10/21 20:55 MPV 10.8 fL (7.4-10.4) H 12/10/21 20:55 Neut % (Auto) 44.3 % 12/10/21 20:55 Lymph % (Auto) 29.4 % 12/10/21 20:55 [place] % (Auto) 19.8 % 12/10/21 20:55 Eos % (Auto) 4.1 % 12/10/21 20:55 Baso % (Auto) 0.5 % 12/10/21 20:55 Neut # (Auto) 2.62 10^3/uL (1.8-7.7) 12/10/21 20:55 Lymph # (Auto) 1.7 10^3/uL (0.8-4.8) 12/10/21 20:55 [place] # (Auto) 1.2 10^3/uL (0.2-0.9) H 12/10/21 20:55 Eos # (Auto) 0.2 10^3/uL (0.0-0.8) 12/10/21 20:55 Baso # (Auto) 0.0 10^3/uL (0.0-0.1) 12/10/21 20:55 Nucleated RBC % (auto) 0 % 12/10/21 20:55 Nucleated RBCs # 0.0 /100WBC 12/10/21 20:55 Sodium 142 mmol/L (136-145) 12/10/21 20:55 Potassium 3.8 mmol/L (3.5-5.1) 12/10/21 20:55 Chloride 106 mmol/L (98-107) 12/10/21 20:55 Carbon Dioxide 22 mmol/L (22-29) 12/10/21 20:55 Anion Gap 17.8 (5-19) 12/10/21 20:55 BUN 19 mg/dL (6-20) 12/10/21 20:55 Creatinine 1.5 mg/dL (0.7-1.2) H 12/10/21 20:55 GFR Calculation 50.6 mL/min (90-130) L 12/10/21 20:55 Glucose 154 mg/dL (65-115) H 12/10/21 20:55 Calculated Osmolality 299 mOsm/kg (285-295) H 12/10/21 20:55 Calcium 9.2 mg/dL (8.5-10.5) 12/10/21 20:55 Total Bilirubin 0.2 mg/dL (0.15-1.2) 12/10/21 20:55 AST 24 U/L (0-40) 12/10/21 20:55 ALT 15 U/L (0-41) 12/10/21 20:55 Alkaline Phosphatase 67 IU/L (40-130) 12/10/21 20:55 Total Protein 7.0 g/dL (6.6-8.7) 12/10/21 20:55 Albumin 3.8 g/dL (3.5-5.2) 12/10/21 20:55 Globulin 3.2 g/dL (1.3-4.6) 12/10/21 20:55 Discharge Plan Discharge Patient Disposition: Home Clinical Impression: Back pain Condition: Stable Prescriptions: No Action albuterol sulfate [ProAir HFA] 90 mcg/actuation HFA aerosol inhaler 1 - 2 puff INHALATION Q6H PRN (Reason: shortness of breath or wheezing) 30 Days Qty: 18 2RF dicyclomine 10 mg capsule 10 mg PO QID PRN (Reason: abdominal discomfort) 30 Days Qty: 60 5RF hydroxyzine HCl 50 mg tablet 50 mg PO QID PRN (Reason: anxiety) Qty: 120 2RF trazodone 100 mg tablet 400 mg PO .HS PRN (Reason: insomnia) Qty: 120 2RF Rx Instructions: Take 2-4 tabs at night as needed. Viibryd 40 mg tablet 40 mg PO QAM Qty: 30 2RF buspirone 10 mg tablet 20 mg PO TID Qty: 180 2RF quetiapine [Seroquel] 100 mg tablet 100 mg PO DAILY 0RF tizanidine 4 mg tablet 4 mg PO DAILY 90 Days Qty: 90 0RF (DME) blood-glucose meter [Accu-Chek Britany Plus Meter] Misc See Rx Instructions .Route Qty: 1 0RF Rx Instructions: daily (DME) Accu-Chek Britany Plus test strp Strip See Rx Instructions .Route Qty: 100 1RF Rx Instructions: As directed (DME) lancets [Accu-Chek Softclix Lancets] Misc See Rx Instructions .Route Qty: 100 0RF Rx Instructions: As directed (DME) blood-glucose meter [Accu-Chek Guide Glucose Meter] Misc See Rx Instructions .Route Qty: 1 0RF Rx Instructions: As directed (DME) Accu-Chek Guide test strips Strip See Rx Instructions .Route Qty: 100 0RF Rx Instructions: test once daily Lantus Solostar U-100 Insulin 100 unit/mL (3 mL) insulin pen See Rx Instructions .ROUTE .COMPLEX Qty: 15 0RF Dose Instruction: INJECT 30 UNITS SUBCUTANEOUSLY AT BEDTIME Rx Instructions: INJECT 30 UNITS SUBCUTANEOUSLY AT BEDTIME metformin 500 mg tablet extended release 24 hr See Rx Instructions .ROUTE .COMPLEX Qty: 90 0RF Dose Instruction: TAKE 1 TABLET BY MOUTH IN THE MORNING Rx Instructions: TAKE 1 TABLET BY MOUTH IN THE MORNING bupropion HCl [Wellbutrin XL] 150 mg tablet extended release 24 hr 150 mg PO QAM Qty: 30 2RF (DME) Bedside Commode See Rx Instructions .Route .MEDSUPPLY Qty: 1 0RF Rx Instructions: As directed following Posterior Lumbar Interbody Fusion DOS: 12/06/21 (DME) Emma Garcia See Rx Instructions .Route .MEDSUPPLY Qty: 1 0RF Rx Instructions: As directed Posterior Lumbar Interbody Fusion DOS 12/06/21 Farxiga 10 mg tablet See Rx Instructions .ROUTE .COMPLEX Qty: 100 0RF Dose Instruction: TAKE 1 TABLET BY MOUTH ONCE DAILY IN THE MORNING Rx Instructions: TAKE 1 TABLET BY MOUTH ONCE DAILY IN THE MORNING Pt needs an A1C for more refills. metoprolol succinate 50 mg tablet extended release 24 hr 50 mg PO DAILY 0RF pantoprazole 40 mg tablet,delayed release (DR/EC) 40 mg PO DAILY 0RF oxycodone 5 mg tablet 5 - 10 mg PO Q4H PRN (Reason: pain) 7 Days Qty: 40 0RF Discharge Orders: Discharge ED (Routine); Ordered 12/10/21 Ordered By: Timothy Bello Referrals: Ofe Paula FNP [Primary Care Provider] - Discharge Diet: Advance as tolerated Discharge Activity: Resume usual activity Patient Instructions: Back Pain (ED) Coding Level of Care Code ED Bobbin Cleaner Hand for Marcos Fwd Exam Comprehensive
[2021-12-10 21:08] VITALS: RESP 16
[2021-12-10] MEDS: HYDROmorphone 1 mg/mL INJ 1 mL IVP (21:08)
[2021-12-10 21:31] VITALS: BP 110/55; PULSE 81; RESP 17; O2SAT 97
[2021-12-10 21:37] LABS: Basophils % 0.5 %; Eosinophils # 0.2 10^3/uL (0.0-0.8); Eosinophils % 4.1 %; Hematocrit 31.1 % (42.0-52.0); Hemoglobin 9.3 g/dL (11.7-16.6); Lymphocytes # 1.7 10^3/uL (0.8-4.8); Lymphocytes % 29.4 %; Mean Corpuscular HGB Conc 29.9 g/dL (30.0-36.0); Mean Corpuscular Hemoglobin 23.6 pg (28.0-34.0); Mean Corpuscular Volume 78.9 fl (80-94); Mean Platelet Volume 10.8 fL (7.4-10.4); Monocytes # 1.2 10^3/uL (0.2-0.9); Monocytes % 19.8 %; Neutrophils # 2.62 10^3/uL (1.8-7.7); Neutrophils % 44.3 %; Nucleated Red Blood Cells % 0 %; Platelet Count 243 10^3/cmm (130-400); Red Blood Count 3.94 10^6/uL (4.1-5.3); Red Cell Distribution Width 16.5 % (12.1-15.1); White Blood Count 5.9 10^3/uL (4.0-10.0)
--- NOTE | 2021-12-10 21:40 | PC.NURSE ---
incision site dressing changed.
[2021-12-10 21:53] LABS: Alanine Aminotransferase 15 U/L (0-41); Albumin Level 3.8 g/dL (3.5-5.2); Alkaline Phosphatase 67 IU/L (40-130); Chloride 106 mmol/L (98-107); Potassium 3.8 mmol/L (3.5-5.1); Sodium 142 mmol/L (136-145)
[2021-12-10 22:18] LABS: Anion Gap 17.8 (5-19); Aspartate Amino Transferase 24 U/L (0-40); Blood Urea Nitrogen 19 mg/dL (6-20); Calcium 9.2 mg/dL (8.5-10.5); Carbon Dioxide 22 mmol/L (22-29); Globulin 3.2 g/dL (1.3-4.6); Glomerular Filtration Rate 50.6 mL/min (90-130); Glucose 154 mg/dL (65-115); Osmolality Calculated 299 mOsm/kg (285-295); Total Bilirubin 0.2 mg/dL (0.15-1.2)
[2021-12-10 22:47] VITALS: BP 116/66; PULSE 74; RESP 16; O2SAT 97
== END 2021-12-10 22:49 | disposition home or self-care (01) ==
PROVIDERS: Emergency Provider Emergency Medicine; PCP Registered Nurse
DX: M54.9 Dorsalgia, unspecified (principal); Z79.84 Long term (current) use of oral hypoglycemic drugs; Z79.4 Long term (current) use of insulin; E78.5 Hyperlipidemia, unspecified; I10 Essential (primary) hypertension; E11.9 Type 2 diabetes mellitus without complications; Z77.22 Contact with and (suspected) exposure to environmental tobacco smoke (acute) (chronic)
CPT/HCPCS: 80053; 85025; 96374; 99283; J1170

== ENCOUNTER 2021-12-23 22:03 | Emergency (ER) | payer MEDICARE, MEDICAID, SELFPAY ==
[2021-12-23 22:12] VITALS: BP 106/68; PULSE 94; RESP 18; TEMP 36.9; O2SAT 95; BMI 28.8
--- NOTE | 2021-12-23 23:48 | W.ED.BACK ---
HPI - Back Pain/Injury General: Chief Complaint: Back Pain/Injury Stated Complaint: 12/06had Back Sugery\Pain Time Seen by Provider: 12/23/21 23:39 Source: patient Mode of arrival: ambulatory Limitations: no limitations History of Present Illness: 46-year-old male who has a long history of chronic back pain he had surgery a month ago states he has been having some spasms in his lower back states he saw the surgeon yesterday has been started on Valium he states he is having a hard time sleep tonight due to the pain when actually went into the room to see the patient he was asleep and I had to wake him up. States pain is in his low back rates it a 5 out of 10 currently he is able to ambulate denies any bowel or bladder incontinence denies any saddle anesthesia. Associated symptoms: Deny abdominal pain, chills, dysuria, fever(s), nausea or vomiting Review of Systems Const: Denies: fever(s), chills, body aches or change in appetite Eyes: Denies: blurry vision or eye discomfort ENMT: Denies: throat pain or dental pain Card: Denies: chest pain Resp: Denies: dyspnea GI: Denies: abdominal pain, nausea, vomiting or diarrhea : Denies: dysuria Musc: Reports: back pain; Denies: neck pain Skin/Breast: Denies: rash Neuro: Denies: headache(s) Psych: Denies: depression Nba/Lymph: Denies: easy bruising All/Imm: Denies: urticaria PFSH ED PFSH: Medical History ADD (attention deficit disorder) Angina decubitus Asthma Carpal tunnel syndrome Chest pain Chronic pain syndrome GERD (gastroesophageal reflux disease) Hematuria History of hepatitis Hyperlipidemia Hypertension Irritable bowel syndrome Peptic ulcer disease Pneumothorax Psychiatric care Seasonal allergies Staphylococcal infection of skin Tobacco use Type 2 diabetes mellitus Surgical History H/O chest tube placement H/O neck surgery H/O wrist surgery R History of back surgery History of carpal tunnel surgery L Family History Family/Other No problems noted. Other Adopted Social History Smoking and tobacco status: current every day smoker smokeless tobacco Smokeless tobacco user: chewing tobacco and snuff Smokeless tobacco details: 1 can/ 2 days Quit status (tobacco): not considering quitting Second hand smoke exposure: Yes Smoking risk assessment/counseling performed?: No Alcohol intake: former Desire information about alcohol rehabilitation?: No Lives independently: Yes Household members: spouse Marital status: Current occupational status: unemployed History of recent travel: No Current gender identity: Male Physical Exam Const: COMMON NORMALS: no acute distress, patient oriented x3 and healthy appearing HENMT: COMMON NORMALS: normocephalic and atraumatic HEAD & SCALP: normocephalic and atraumatic Eye: COMMON NORMALS: Equal, round and reactive pupils present and EOMs intact bilaterally PUPIL: Yes Equal, round and reactive pupils present Neck/C-Spine: COMMON NORMALS: full ROM and supple Chest: COMMONS NORMALS: normal inspection of the chest and normal palpation of entire chest wall Resp: COMMON NORMALS: normal respiratory effort, No retractions, No use of accessory muscles and clear to auscultation bilaterally AUSCULTATION: clear to auscultation bilaterally Cardio: COMMON NORMALS: regular rate, regular rhythm and No murmurs present (Cardio) RATE: regular rate RHYTHM: regular rhythm GI: COMMON NORMALS: Normal to inspection, nondistended, normoactive bowel sounds present, Soft to palpation, non-tender and no masses PALPATION: Yes Soft to palpation Back/Pelvis: OTHER: Patient's lumbar incisions clean dry intact no tenderness along midline some paraspinal tenderness no saddle anesthesia 5 out of 5 strength bilateral lower extremities Extremity: COMMON NORMALS: normal to inspection and full ROM Neuro: COMMON NORMALS: patient oriented x3, moves all extremities and no focal motor deficits Psych: COMMON NORMALS: mental status grossly normal, Normal thought process present and cooperative THOUGHT PROCESS: Normal thought process present Skin: COMMON NORMALS: no rashes or lesions noted and no wounds GENERAL SKIN EXAM: no rashes or lesions noted Course Vital Signs: Vital signs: Vital Signs Temperature 98.4 F 12/23/21 22:12 Pulse Rate 94 12/23/21 22:12 Respiratory Rate 18 12/23/21 22:12 Blood Pressure 106/68 12/23/21 22:12 Pulse Oximetry 95 12/23/21 22:12 MDM - Back Pain/Injury Medical Decision Making Patient presents with back pain that is chronic in nature and he is well-appearing here his incisions clean dry and intact he has no saddle anesthesia he stable for discharge and to follow-up with a surgeon. He has no signs of infection or cord compression Discharge Plan Discharge Patient Disposition: Home Clinical Impression: Status post lumbar spinal fusion, Low back pain Condition: Stable Prescriptions: No Action albuterol sulfate [ProAir HFA] 90 mcg/actuation HFA aerosol inhaler 1 - 2 puff INHALATION Q6H PRN (Reason: shortness of breath or wheezing) 30 Days Qty: 18 2RF dicyclomine 10 mg capsule 10 mg PO QID PRN (Reason: abdominal discomfort) 30 Days Qty: 60 5RF hydroxyzine HCl 50 mg tablet 50 mg PO QID PRN (Reason: anxiety) Qty: 120 2RF trazodone 100 mg tablet 400 mg PO .HS PRN (Reason: insomnia) Qty: 120 2RF Rx Instructions: Take 2-4 tabs at night as needed. Viibryd 40 mg tablet 40 mg PO QAM Qty: 30 2RF buspirone 10 mg tablet 20 mg PO TID Qty: 180 2RF quetiapine [Seroquel] 100 mg tablet 100 mg PO DAILY 0RF tizanidine 4 mg tablet 4 mg PO DAILY 90 Days Qty: 90 0RF diazepam [Valium] 5 mg tablet 5 mg PO TID PRN (Reason: muscle spasm) 7 Days Qty: 30 0RF oxycodone 5 mg tablet 5 mg PO Q4H PRN (Reason: pain) 7 Days Qty: 40 0RF (DME) blood-glucose meter [Accu-Chek Britany Plus Meter] Misc See Rx Instructions .Route Qty: 1 0RF Rx Instructions: daily (DME) Accu-Chek Britany Plus test strp Strip See Rx Instructions .Route Qty: 100 1RF Rx Instructions: As directed (DME) lancets [Accu-Chek Softclix Lancets] Misc See Rx Instructions .Route Qty: 100 0RF Rx Instructions: As directed (DME) blood-glucose meter [Accu-Chek Guide Glucose Meter] Misc See Rx Instructions .Route Qty: 1 0RF Rx Instructions: As directed (DME) Accu-Chek Guide test strips Strip See Rx Instructions .Route Qty: 100 0RF Rx Instructions: test once daily Lantus Solostar U-100 Insulin 100 unit/mL (3 mL) insulin pen See Rx Instructions .ROUTE .COMPLEX Qty: 15 0RF Dose Instruction: INJECT 30 UNITS SUBCUTANEOUSLY AT BEDTIME Rx Instructions: INJECT 30 UNITS SUBCUTANEOUSLY AT BEDTIME metformin 500 mg tablet extended release 24 hr See Rx Instructions .ROUTE .COMPLEX Qty: 90 0RF Dose Instruction: TAKE 1 TABLET BY MOUTH IN THE MORNING Rx Instructions: TAKE 1 TABLET BY MOUTH IN THE MORNING bupropion HCl [Wellbutrin XL] 150 mg tablet extended release 24 hr 150 mg PO QAM Qty: 30 2RF (DME) Bedside Commode See Rx Instructions .Route .MEDSUPPLY Qty: 1 0RF Rx Instructions: As directed following Posterior Lumbar Interbody Fusion DOS: 12/06/21 (DME) Rolling Walker See Rx Instructions .Route .MEDSUPPLY Qty: 1 0RF Rx Instructions: As directed Posterior Lumbar Interbody Fusion DOS 12/06/21 Farxiga 10 mg tablet See Rx Instructions .ROUTE .COMPLEX Qty: 100 0RF Dose Instruction: TAKE 1 TABLET BY MOUTH ONCE DAILY IN THE MORNING Rx Instructions: TAKE 1 TABLET BY MOUTH ONCE DAILY IN THE MORNING Pt needs an A1C for more refills. metoprolol succinate 50 mg tablet extended release 24 hr 50 mg PO DAILY 0RF pantoprazole 40 mg tablet,delayed release (DR/EC) 40 mg PO DAILY 0RF Discharge Orders: Discharge ED (Routine); Ordered 12/23/21 Ordered By: Timothy Bello Referrals: Ofe Paula, FORENSIC SCIENCE EXAMINER [Primary Care Provider] - 1-3 days Discharge Diet: Advance as tolerated Discharge Activity: Resume usual activity Patient Instructions: Back Pain (ED), Opioid Safety Coding Level of Care Code ED Timber Management Professor for Marcos Scott
[2021-12-24 00:07] VITALS: RESP 18; O2SAT 98
[2021-12-24] MEDS: morphine 4 mg/mL SDV 1 mL IM (00:07)
== END 2021-12-24 00:10 | disposition home or self-care (01) ==
PROVIDERS: Emergency Provider Emergency Medicine; PCP Registered Nurse
DX: M54.50 Low back pain, unspecified (principal); Z98.890 Other specified postprocedural states; Z79.84 Long term (current) use of oral hypoglycemic drugs; Z79.4 Long term (current) use of insulin; E78.5 Hyperlipidemia, unspecified; I10 Essential (primary) hypertension; E11.9 Type 2 diabetes mellitus without complications; F17.220 Nicotine dependence, chewing tobacco, uncomplicated; E72.3 Disorders of lysine and hydroxylysine metabolism
CPT/HCPCS: 72131; 96372; 99283; J1170; J2270; J2360

== ENCOUNTER 2021-12-24 11:50 | Emergency (ER) | payer MEDICARE, MEDICAID, SELFPAY ==
[2021-12-24 11:59] VITALS: BP 112/35; PULSE 86; RESP 18; TEMP 37; O2SAT 96
[2021-12-24 12:09] VITALS: BMI 28.8
--- NOTE | 2021-12-24 12:40 | CT_ITS ---
WS: [id number] CT LUMBAR SPINE TECHNIQUE: Noncontrast CT of the lumbar spine with coronal and sagittal reformatted images. CLINICAL INFORMATION: back pain; surgery 3 wks ago COMPARISON: MRI June 24, 2021 DLP: 2148.[address] scans at [facility] use at least one of these dose optimization techniques: automated e xposure control; mA and/or kV adjustment per patient size (includes targeted exams where dose is matc hed to clinical indication); or iterative reconstruction. FINDINGS: Postoperative changes pedicle screw fixation L4-L5 with interbody fusion graft. Hardware appears in g ood position. Associated laminectomy defects. Images are significantly degraded due to beam hardening artifact at the surgical levels. There appears to be moderate central canal stenosis at the L4-L5 le sl[place]ane due to postoperative edema/fluid within the laminectomy defects with LEFT dorsal impingement on t he thecal sac Spinal canal is patent at the L3-L4 and L5-S1 levels. L1-L2: Normal. L2-L3: Slight retrolisthesis L2 on L3. RIGHT foraminal disc osteophyte protrusion slightly impinges t he exiting RIGHT L2 nerve root. Spinal canal and foramen are patent. L3-L4: Mild annular bulging. Spinal canal and foramen are patent. Mild facet arthropathy. L4-L5: Pedicle screw fixation with laminectomy defects. Suggestion of moderate central canal stenosis at this level due to LEFT dorsal impingement on the thecal sac. Postoperative changes with fluid/breanne ma in the laminectomy defect encroaches on the thecal sac. Mild LEFT greater than RIGHT foraminal andrew rowing. L5-S1: Mild annular bulging. Spinal canal and foramen are patent. Mild facet arthropathy. Visualized pelvic bony structures: Normal. Paravertebral soft tissues: Normal. CT/CT lumbar spine wo con* [id number] IMPRESSION:Hardware significant degrades images at the surgical levels 1. Recent postoperative changes pedicle screw fixation L4-L5 with interbody fu christal graft. Hardware appears in good position. Associated laminectomy defects. 2. Moderate appearing central canal stenosis at the L4-L5 level with suggestio n of LEFT dorsal mass effect on the thecal sac due to postoperative edema/fluid within the laminectomy defect. Hardware artifact significantly degrades images at these levels and central canal is difficult to visualize. 3. Spinal canal is patent L3-L4 and L5-S1. 4. Small RIGHT foraminal protrusion L2-L3 with mild RIGHT foraminal narrowing. Notified ALLIE Ray at 12/24/2021 1:45 PM.
--- NOTE | 2021-12-24 12:41 | ED_ITS ---
HPI - Back Pain/Injury General: Chief Complaint: Extremity Problem,Nontraumatic Stated Complaint: hip hurting, cant stand and shaking in legs Time Seen by Provider: 12/24/21 12:17 Source: patient Mode of arrival: ambulatory Limitations: no limitations History of Present Illness: Patient is a 46-year-old male well-known to our emergency department here for complaints of diffuse lower back pain, difficulty walking secondary to feeling like his bilateral lower extremities are weak, and feeling shaky following an IM injection of morphine given to patient yesterday in our ED. Patient had back surgery on 12/[address] Mitchell. He had L4-L5 interbody fusion/cage/laminectomy/allograft. Patient states after the surgery he felt like he was doing well and has had appropriate follow up with Dr. Mitchell. He states over the past week or so symptoms have worsened. He also states he stumbled/fell two days ago and wonders if maybe he injured something. He does not complain of saddle anesthesia or any dysfunction with urination or defecation. He is not complaining of sensory deficits to his lower legs. Patient was seen in our ED yesterday evening for similar complaints and states he was given IM morphine which made him feel shaky and jittery . He states his lower extremities will not stop bouncing around . MD elicited complaint: back pain Pertinent past history: back surgery Onset (ago): day(s) Timing: constant Severity: severe Location: lumbar spine, right lower back and left lower back Radiation: left upper leg and right upper leg Exacerbating factors: movement and walking Relieving factors: none Associated symptoms: Reports difficulty walking; Deny abdominal pain, chills, fatigue, fever(s), nausea or vomiting Work related injury: No Review of Systems Const: Denies: fever(s), chills, body aches, fatigue or malaise Card: Denies: chest pain or palpitations Resp: Denies: dyspnea GI: Denies: abdominal pain, nausea or vomiting Musc: Reports: back pain; Denies: neck pain, extremity pain, extremity swelling, joint pain, joint swelling, joint redness or joint warmth Skin/Breast: Denies: rash Neuro: Reports: weakness in extremities, difficulty walking and other (reports shaking ); Denies: headache(s), numbness in extremities, sensory changes, dizziness, confusion, Slurred speech present or difficulty communicating thoughts PFSH ED PFSH: Medical History ADD (attention deficit disorder) Angina decubitus Asthma Carpal tunnel syndrome Chest pain Chronic pain syndrome GERD (gastroesophageal reflux disease) Hematuria History of hepatitis Hyperlipidemia Hypertension Irritable bowel syndrome Peptic ulcer disease Pneumothorax Psychiatric care Seasonal allergies Staphylococcal infection of skin Tobacco use Type 2 diabetes mellitus Surgical History H/O chest tube placement H/O neck surgery H/O wrist surgery R History of back surgery History of carpal tunnel surgery L Family History Family/Other No problems noted. Other Adopted Social History Smoking and tobacco status: current every day smoker smokeless tobacco Smokeless tobacco user: chewing tobacco and snuff Smokeless tobacco details: 1 can/ 2 days Quit status (tobacco): not considering quitting Second hand smoke exposure: Yes Smoking risk assessment/counseling performed?: No Alcohol intake: former Desire information about alcohol rehabilitation?: No Lives independently: Yes Household members: spouse Marital status: Current occupational status: unemployed History of recent travel: No Current gender identity: Male Physical Exam Const: COMMON NORMALS: patient oriented x3, no limitations and alert GENERAL APPEARANCE: cooperative ORIENTATION/CONSCIOUSNESS: Yes awake, Yes oriented to person, Yes oriented to place and Yes oriented to time HENMT: COMMON NORMALS: normocephalic and atraumatic HEAD & SCALP: normocephalic and atraumatic Resp: COMMON NORMALS: normal respiratory effort and clear to auscultation bilaterally AUSCULTATION: clear to auscultation bilaterally Cardio: COMMON NORMALS: regular rate and regular rhythm RATE: regular rate RHYTHM: regular rhythm Back/Pelvis: THORACIC SPINE/UPPER BACK: Yes normal to inspection, Yes thoracic ROM normal, No thoracic spinal tenderness, No paraspinal muscle tenderness and No paraspinal muscle spasm LUMBAR SPINE/LOWER BACK: Yes pain with ROM, No lumbar spinal tenderness and Yes paraspinal muscle tenderness (across lower back) PELVIS: Yes buttocks normal SACROILIAC JOINTS: Yes SI joints normal Extremity: COMMON NORMALS: capillary refill normal, no joint enlargement, no clubbing, cyanosis or edema, no calf tenderness and no pedal edema NARRATIVE EXTREMITY EXAM: tremors/fidgety movements noted to bilateral LEs-this subsided after IM medications here GENERAL: Yes normal exam except as noted Neuro: MERLIN COMA SCALE: document GCS findings Merlin coma scale eye opening: Spontaneous Merlin coma scale verbal response: Orientated [place] coma scale motor response: Obey commands [place] coma scale total score: 15 COMMON NORMALS: patient oriented x3, moves all extremities, no focal motor deficits and no sensory deficits noted SENSORIUM/ORIENTATION: Yes alert, Yes oriented to person, Yes oriented to place and Yes oriented to time MOTOR EXAM: 5/5 motor strength present throughout Skin: COMMON NORMALS: no rashes or lesions noted NARRATIVE SKIN EXAM: lumbar surgical incision looks clean with scant amount of serosanguineous drainage GENERAL SKIN EXAM: no rashes or lesions noted Course Consultations: Consultation #1: Dr. Mitchell-reviewed CT findings with physician who felt patient was stable for his scheduled follow up appointment on Monday Vital Signs: Vital signs: Vital Signs Temperature 98.6 F 12/24/21 11:59 Pulse Rate 86 12/24/21 11:59 Respiratory Rate 16 12/24/21 12:54 Blood Pressure 112/35 12/24/21 11:59 Pulse Oximetry 95 12/24/21 12:54 MDM - Back Pain/Injury Medical Decision Making Patient is a 46-year-old male here for complaints of diffuse lower back pains. He also has complaints of feeling shaky and jittery following an IM injection of morphine given to him yesterday in our ED. patient was given IM Norflex and 0.5 mg Dilaudid here in re-evaluation reveals patient to feeling much more comfortable. All of his shaking and abnormal movements have resolved and patient states his pain feels better. Patient surgical incision looks clean and appears to be healing well. CT scan shows his hardware in good position. There is a postoperative seroma/fluid collection within the laminectomy defect that seems to have left dorsal mass-effect on his thecal sac. I did speak to Dr. Miller who stated this did not appear infectious. I spoke to Dr. Mitchell who stated patient is stable to follow-up with him in office on Monday at his currently scheduled appointment. Return to ED precautions verbally given to patient. Labs Radiology Impressions Lumbar Spine CT 12/24/21 12:40 IMPRESSION:Hardware significant degrades images at the surgical levels 1. Recent postoperative changes pedicle screw fixation L4-L5 with interbody fusion graft. Hardware appears in good position. Associated laminectomy defects. 2. Moderate appearing central canal stenosis at the L4-L5 level with suggestion of LEFT dorsal mass effect on the thecal sac due to postoperative edema/fluid within the laminectomy defect. Hardware artifact significantly degrades images at these levels and central canal is difficult to visualize. 3. Spinal canal is patent L3-L4 and L5-S1. 4. Small RIGHT foraminal protrusion L2-L3 with mild RIGHT foraminal narrowing. Notified ALLIE Ray at 12/24/2021 1:45 PM. Discharge Plan Discharge Patient Disposition: Home Clinical Impression: Low back pain Condition: Stable Prescriptions: New orphenadrine citrate 100 mg tablet extended release 100 mg PO BID Qty: 14 0RF Discontinued tizanidine 4 mg tablet 4 mg PO DAILY 90 Days Qty: 90 0RF No Action albuterol sulfate [ProAir HFA] 90 mcg/actuation HFA aerosol inhaler 1 - 2 puff INHALATION Q6H PRN (Reason: shortness of breath or wheezing) 30 Days Qty: 18 2RF dicyclomine 10 mg capsule 10 mg PO QID PRN (Reason: abdominal discomfort) 30 Days Qty: 60 5RF hydroxyzine HCl 50 mg tablet 50 mg PO QID PRN (Reason: anxiety) Qty: 120 2RF trazodone 100 mg tablet 400 mg PO .HS PRN (Reason: insomnia) Qty: 120 2RF Rx Instructions: Take 2-4 tabs at night as needed. Viibryd 40 mg tablet 40 mg PO QAM Qty: 30 2RF buspirone 10 mg tablet 20 mg PO TID Qty: 180 2RF quetiapine [Seroquel] 100 mg tablet 100 mg PO DAILY 0RF diazepam [Valium] 5 mg tablet 5 mg PO TID PRN (Reason: muscle spasm) 7 Days Qty: 30 0RF oxycodone 5 mg tablet 5 mg PO Q4H PRN (Reason: pain) 7 Days Qty: 40 0RF (DME) blood-glucose meter [Accu-Chek Britany Plus Meter] Misc See Rx Instructions .Route Qty: 1 0RF Rx Instructions: daily (DME) Accu-Chek Britany Plus test strp Strip See Rx Instructions .Route Qty: 100 1RF Rx Instructions: As directed (DME) lancets [Accu-Chek Softclix Lancets] Misc See Rx Instructions .Route Qty: 100 0RF Rx Instructions: As directed (DME) blood-glucose meter [Accu-Chek Guide Glucose Meter] Misc See Rx Instructions .Route Qty: 1 0RF Rx Instructions: As directed (DME) Accu-Chek Guide test strips Strip See Rx Instructions .Route Qty: 100 0RF Rx Instructions: test once daily Lantus Solostar U-100 Insulin 100 unit/mL (3 mL) insulin pen See Rx Instructions .ROUTE .COMPLEX Qty: 15 0RF Dose Instruction: INJECT 30 UNITS SUBCUTANEOUSLY AT BEDTIME Rx Instructions: INJECT 30 UNITS SUBCUTANEOUSLY AT BEDTIME metformin 500 mg tablet extended release 24 hr See Rx Instructions .ROUTE .COMPLEX Qty: 90 0RF Dose Instruction: TAKE 1 TABLET BY MOUTH IN THE MORNING Rx Instructions: TAKE 1 TABLET BY MOUTH IN THE MORNING bupropion HCl [Wellbutrin XL] 150 mg tablet extended release 24 hr 150 mg PO QAM Qty: 30 2RF (DME) Bedside Commode See Rx Instructions .Route .MEDSUPPLY Qty: 1 0RF Rx Instructions: As directed following Posterior Lumbar Interbody Fusion DOS: 12/06/21 (DME) Emma Garcia See Rx Instructions .Route .MEDSUPPLY Qty: 1 0RF Rx Instructions: As directed Posterior Lumbar Interbody Fusion DOS 12/06/21 Farxiga 10 mg tablet See Rx Instructions .ROUTE .COMPLEX Qty: 100 0RF Dose Instruction: TAKE 1 TABLET BY MOUTH ONCE DAILY IN THE MORNING Rx Instructions: TAKE 1 TABLET BY MOUTH ONCE DAILY IN THE MORNING Pt needs an A1C for more refills. metoprolol succinate 50 mg tablet extended release 24 hr 50 mg PO DAILY 0RF pantoprazole 40 mg tablet,delayed release (DR/EC) 40 mg PO DAILY 0RF Discharge Orders: Discharge ED (Routine); Ordered 12/24/21 Ordered By: Morenita Mclaughlin Referrals: Ofe Paula, COMPLIANCE FIELD TECHNICIAN [Primary Care Provider] - Activity Restrictions/Additional Instructions: Follow-up with Dr. Mitchell's office at your scheduled appointment on Monday. Coding Level of Care Code ED Gambling Cashier for Chg Sonia
[2021-12-24 12:54] VITALS: RESP 16; O2SAT 95
[2021-12-24] MEDS: HYDROmorphone 1 mg/mL INJ 1 mL 0.5 MG SUBCUT (12:54)
[2021-12-24] MEDS: orphenadrine 30 mg/mL Inj 2 mL 60 MG IM (12:57)
== END 2021-12-24 14:58 | disposition home or self-care (01) ==
PROVIDERS: Emergency Provider Physician Assistant; PCP Registered Nurse
DX: M54.50 Low back pain, unspecified (principal); Z79.4 Long term (current) use of insulin; Z79.84 Long term (current) use of oral hypoglycemic drugs; E72.3 Disorders of lysine and hydroxylysine metabolism; I10 Essential (primary) hypertension; E11.9 Type 2 diabetes mellitus without complications; F17.220 Nicotine dependence, chewing tobacco, uncomplicated
CPT/HCPCS: 72131; 96372; 99283; J1170; J2360

== ENCOUNTER → 2021-12-28 09:20 | Outpatient (BNVA) | payer MEDICARE, MEDICAID, SELFPAY | PROVIDERS: PCP Registered Nurse; Visit Provider Physician Assistant | DX: Z98.1 Arthrodesis status (principal) | CPT/HCPCS: 72100 ==

== ENCOUNTER → 2022-01-14 14:47 | Outpatient (BNVA) | payer MEDICARE, MEDICAID, SELFPAY | PROVIDERS: PCP Registered Nurse; Visit Provider Registered Nurse | DX: R30.0 Dysuria (principal); E11.9 Type 2 diabetes mellitus without complications | CPT/HCPCS: 36416; 81000; 82962 ==

== ENCOUNTER → 2022-01-19 11:19 | Outpatient (BNVA) | payer MEDICARE, MEDICAID, SELFPAY | PROVIDERS: PCP Registered Nurse; Visit Provider Registered Nurse | DX: R82.90 Unspecified abnormal findings in urine (principal) | CPT/HCPCS: 81000; 87086; 87491; 87591; 87661 ==

== ENCOUNTER → 2022-02-02 07:22 | Outpatient (BNVA) | payer MEDICARE, MEDICAID, SELFPAY | PROVIDERS: PCP Registered Nurse; Visit Provider Psychiatry & Neurology Psychiatry | DX: F41.1 Generalized anxiety disorder (principal); F33.2 Major depressive disorder, recurrent severe without psychotic features; F43.9 Reaction to severe stress, unspecified; F17.210 Nicotine dependence, cigarettes, uncomplicated | CPT/HCPCS: 99214 ==

== ENCOUNTER → 2022-02-08 13:11 | Outpatient (BNVA) | payer MEDICARE, MEDICAID, SELFPAY | PROVIDERS: PCP Registered Nurse; Visit Provider Orthopaedic Surgery | DX: Z47.89 Encounter for other orthopedic aftercare (principal); Z98.890 Other specified postprocedural states; Z98.1 Arthrodesis status | CPT/HCPCS: 72100; 99024 ==

== ENCOUNTER → 2022-03-15 13:13 | Outpatient (BNVA) | payer MEDICARE, MEDICAID, SELFPAY | PROVIDERS: PCP Registered Nurse; Visit Provider Orthopaedic Surgery | DX: Z47.89 Encounter for other orthopedic aftercare (principal); Z98.890 Other specified postprocedural states; Z98.1 Arthrodesis status | CPT/HCPCS: 72100; 99024 ==

== ENCOUNTER → 2022-03-22 14:16 | Outpatient (BNVA) | payer MEDICARE, MEDICAID, SELFPAY | PROVIDERS: PCP Registered Nurse; Visit Provider Registered Nurse | DX: E11.22 Type 2 diabetes mellitus with diabetic chronic kidney disease (principal); M54.2 Cervicalgia; M54.9 Dorsalgia, unspecified; G89.29 Other chronic pain | CPT/HCPCS: 80053; 83036 ==

== ENCOUNTER 2022-04-21 19:00 | Emergency (ER) | payer MEDICARE, MEDICAID, SELFPAY ==
[2022-04-21 19:07] VITALS: BP 120/71; PULSE 73; RESP 16; TEMP 36.2; O2SAT 98
--- NOTE | 2022-04-21 20:48 | ED_ITS ---
HPI - Headache General: Chief Complaint: Headache Stated Complaint: possible migraine for 2+weeks Time Seen by Provider: 04/21/22 20:48 History of Present Illness: Mr. Junior is a 46-year-old gentleman with history of back surgery and history of headaches who presents to the emergency department due to headache. He reports for a long period of time his migraines that he had as a child were well controlled however approximately 1 year ago they began to come back. This most recent 1 was atraumatic in onset approximately 2 weeks ago. He endorses severe pain in the back of his head associated with photosensitivity, sound sensitivity, nausea, vomiting. He denies worsening neck stiffness or infectious symptoms. Overall this is fairly similar to previous although this has been harder to control. He does take Topamax and has been trialed on medications including steroids. He was seen clinic today and received migraine cocktail which temporarily improved symptoms however they are now worse again. Overall intensity is moderate to severe. Course has persisted. No other specific changes in health, exacerbating, or alleviating factors identified. Onset (ago): week(s) Onset description: gradually Location: frontal and retro-orbital Severity: severe Quality & Timing: aching and throbbing Exacerbating factors: exertion, light and noise Associated symptoms: Reports nausea Review of Systems General: Reports: 10 or more systems reviewed and unremarkable except in HPI and below GI: Reports: nausea PFSH ED PFSH: Medical History ADD (attention deficit disorder) Angina decubitus Asthma Carpal tunnel syndrome Chest pain Chronic pain syndrome GERD (gastroesophageal reflux disease) Hematuria History of hepatitis Hyperlipidemia Hypertension Irritable bowel syndrome Peptic ulcer disease Pneumothorax Psychiatric care Seasonal allergies Staphylococcal infection of skin Tobacco use Type 2 diabetes mellitus Surgical History H/O chest tube placement H/O neck surgery H/O wrist surgery R History of back surgery History of carpal tunnel surgery L Family History Family/Other No problems noted. Other Adopted Social History Smoking and tobacco status: current every day smoker (chew) smokeless tobacco Smokeless tobacco user: chewing tobacco and snuff Smokeless tobacco details: 1 can/ 2 days Quit status (tobacco): not considering quitting Second hand smoke exposure: Yes Smoking risk assessment/counseling performed?: No Alcohol intake: former Desire information about alcohol rehabilitation?: No Lives independently: Yes Household members: spouse Marital status: Current occupational status: unemployed History of recent travel: No Current gender identity: Male Physical Exam Const: COMMON NORMALS: patient oriented x3 and alert GENERAL APPEARANCE: cooperative and well developed HENMT: COMMON NORMALS: normocephalic and atraumatic HEAD & SCALP: nor mocephalic and atraumatic THROAT: posterior oropharynx normal Eye: COMMON NORMALS: conjunctivae normal CONJUNCTIVA: Yes conjunctivae normal SCLERA: sclerae normal Neck/C-Spine: COMMON NORMALS: supple and no meningeal signs GENERAL: Yes trachea midline Resp: COMMON NORMALS: normal respiratory effort EFFORT & INSPECTION: Yes able to speak in complete sentences Cardio: COMMON NORMALS: regular rate and regular rhythm RATE: regular rate RHYTHM: regular rhythm GI: COMMON NORMALS: Soft to palpation PALPATION: Yes Soft to palpation and No Tenderness to palpation present (GI) Extremity: GENERAL: Yes normal exam except as noted and No edema Neuro: COMMON NORMALS: patient oriented x3, CN's II-XII intact bilaterally, moves all extremities, no focal motor deficits, no sensory deficits noted and gait normal SENSORIUM/ORIENTATION: Yes alert and No Orientation impaired MENINGEAL SIGNS: Yes no meningeal signs Psych: COMMON NORMALS: mental status grossly normal and Normal thought process present THOUGHT PROCESS: Normal thought process present Course ED course: - Patient was seen and evaluated by me at bedside - Patient placed on cardiac monitors, IV access obtained - Initial evaluation notable for comfortable pains due to headache, nonfocal neurologic exam. - Labs and xrays personally interpreted by me - Reglan, Toradol, Benadryl, wheezing, IV fluids given as migraine cocktail - Labs notable for leukocytosis. Metabolic panel with elevated creatinine which was discussed with the patient and is slightly worse than baseline. - Given duration and change in characteristic i.e. intractability imaging is warranted. Imaging notable for negative head CT for cause of headache - Upon serial reexamination after treatment the patient was markedly improved with resolution of headache - Based on patient history, evaluation, and testing as interpreted the most likely cause of the patient's condition is non-intractable migraine - The results of ED evaluation were discussed with the patient including prescriptions and/or symptomatic cares (if applicable) including appropriate and responsible use, followup plan, and return precautions. The patient verbalized understanding and felt safe for discharge. - Patient discharged in satisfactory condition. Note: Click bubbles or prepopulated courtney in note writing are used for assistance with data collection and billing and are inherently more limited than narrative and other text portions of this note. Please use narrative for additional clinical history and defer to narrative/free test for any case of contradictory information. If information appears in only free text or click bubble it should be considered present or absent as reported. Please contact note publications writer for clarifications of clinical information or contradictory information. MDM is a brief summary, contradictory or erroneous seeming information should be clarified and full note should be reviewed. Vital Signs: Vital signs: Vital Signs Temperature 97.1 F L 04/21/22 19:07 Pulse Rate 68 04/21/22 23:04 Respiratory Rate 16 04/21/22 23:04 Blood Pressure 130/80 04/21/22 23:04 Pulse Oximetry 97 04/21/22 23:04 MDM - Headache Medical Decision Making 46-year-old gentleman presenting with headache. Patient has history of migraines. Likely multifactorial given history of neck injury and surgeries. No focal neurologic findings. Improved with treatment and ED evaluation otherwise essentially negative. Satisfactory for outpatient management. Medical Records I reviewed the patient's medical records. Lab Data I reviewed the patient's lab results. : 04/21/22 21:20 04/21/22 21:[address] 04/21/22 21:00 IMPRESSION: No acute intracranial abnormality. Laboratory Results WBC 8.4 10^3/uL (4.0-10.0) 04/21/22 21:20 RBC 5.73 10^6/uL (4.1-5.3) H 04/21/22 21:20 Hgb 12.9 g/dL (11.7-16.6) 04/21/22 21:20 Hct 42.4 % (42.0-52.0) 04/21/22 21:20 MCV 74.0 fl (80-94) L 04/21/22 21:20 MCH 22.5 pg (28.0-34.0) L 04/21/22 21:20 MCHC 30.4 g/dL (30.0-36.0) 04/21/22 21:20 RDW 16.9 % (12.1-15.1) H 04/21/22 21:20 Plt Count 297 10^3/cmm (130-400) 04/21/22 21:20 MPV 11.0 fL (7.4-10.4) H 04/21/22 21:20 Neut % (Auto) 85.2 % 04/21/22 21:20 Lymph % (Auto) 11.5 % 04/21/22 21:20 [place] % (Auto) 2.3 % 04/21/22 21:20 Eos % (Auto) 0.1 % 04/21/22 21:20 Baso % (Auto) 0.4 % 04/21/22 21:20 Neut # (Auto) 7.14 10^3/uL (1.8-7.7) 04/21/22 21:20 Lymph # (Auto) 1.0 10^3/uL (0.8-4.8) 04/21/22 21:20 [place] # (Auto) 0.2 10^3/uL (0.2-0.9) 04/21/22 21:20 Eos # (Auto) 0.0 10^3/uL (0.0-0.8) 04/21/22 21:20 Baso # (Auto) 0.0 10^3/uL (0.0-0.1) 04/21/22 21:20 Nucleated RBC % (auto) 0 % 04/21/22 21:20 Nucleated RBCs # 0.0 /100WBC 04/21/22 21:20 Sodium 140 mmol/L (136-145) 04/21/22 21:20 Potassium 4.9 mmol/L (3.5-5.1) 04/21/22 21:20 Chloride 105 mmol/L (98-107) 04/21/22 21:20 Carbon Dioxide 25 mmol/L (22-29) 04/21/22 21:20 Anion Gap 14.9 (5-19) 04/21/22 21:20 BUN 15 mg/dL (6-20) 04/21/22 21:20 Creatinine 1.4 mg/dL (0.7-1.2) H 04/21/22 21:20 GFR Calculation 54.8 mL/min (90-130) L 04/21/22 21:20 Glucose 182 mg/dL (65-115) H 04/21/22 21:20 Calculated Osmolality 295 mOsm/kg (285-295) 04/21/22 21:20 Calcium 10.0 mg/dL (8.5-10.5) 04/21/22 21:20 Total Bilirubin 0.2 mg/dL (0.15-1.2) 04/21/22 21:20 AST 17 U/L (0-40) 04/21/22 21:20 ALT 13 U/L (0-41) 04/21/22 21:20 Alkaline Phosphatase 93 IU/L (40-130) 04/21/22 21:20 Total Protein 8.0 g/dL (6.6-8.7) 04/21/22 21:20 Albumin 4.8 g/dL (3.5-5.2) 04/21/22 21:20 Globulin 3.2 g/dL (1.3-4.6) 04/21/22 21:20 Discharge Plan Discharge Patient Disposition: Home Clinical Impression: Migraine Condition: Stable Prescriptions: New Benadryl 25 mg capsule 25 mg PO TID PRN (Reason: headache) Qty: 10 0RF No Action Viibryd 40 mg tablet 40 mg PO QAM Qty: 30 2RF trazodone 100 mg tablet 400 mg PO .HS PRN (Reason: insomnia) Qty: 120 2RF Rx Instructions: Take 2-4 tabs at night as needed. hydroxyzine HCl 50 mg tablet 50 mg PO QID PRN (Reason: anxiety) Qty: 120 2RF buspirone 10 mg tablet 20 mg PO TID Qty: 180 2RF bupropion HCl [Wellbutrin XL] 150 mg tablet extended release 24 hr 150 mg PO QAM Qty: 30 2RF albuterol sulfate [ProAir HFA] 90 mcg/actuation HFA aerosol inhaler 1 - 2 puff INHALATION Q6H PRN (Reason: shortness of breath or wheezing) 30 Days Qty: 18 2RF dicyclomine 10 mg capsule 10 mg PO QID PRN (Reason: abdominal discomfort) 30 Days Qty: 60 5RF metformin 500 mg tablet extended release 24 hr See Rx Instructions .ROUTE .COMPLEX Qty: 90 0RF Dose Instruction: TAKE 1 TABLET BY MOUTH IN THE MORNING Rx Instructions: TAKE 1 TABLET BY MOUTH IN THE MORNING Farxiga 10 mg tablet See Rx Instructions .ROUTE .COMPLEX 90 Days Qty: 90 0RF Dose Instruction: TAKE 1 TABLET BY MOUTH ONCE DAILY IN THE MORNING Rx Instructions: TAKE 1 TABLET BY MOUTH ONCE DAILY IN THE MORNING tizanidine 4 mg capsule 4 mg PO DAILY PRN (Reason: muscle spasticity) 30 Days Qty: 30 2RF (DME) blood-glucose meter [Accu-Chek Britany Plus Meter] Misc See Rx Instructions .Route Qty: 1 0RF Rx Instructions: daily (DME) Accu-Chek Britany Plus test strp Strip See Rx Instructions .Route Qty: 100 1RF Rx Instructions: As directed (DME) lancets [Accu-Chek Softclix Lancets] Misc See Rx Instructions .Route Qty: 100 0RF Rx Instructions: As directed (DME) blood-glucose meter [Accu-Chek Guide Glucose Meter] Misc See Rx Instructions .Route Qty: 1 0RF Rx Instructions: As directed (DME) Accu-Chek Guide test strips Strip See Rx Instructions .Route Qty: 100 0RF Rx Instructions: test once daily Lantus Solostar U-100 Insulin 100 unit/mL (3 mL) insulin pen See Rx Instructions .ROUTE .COMPLEX Qty: 15 0RF Dose Instruction: INJECT 30 UNITS SUBCUTANEOUSLY AT BEDTIME Rx Instructions: INJECT 30 UNITS SUBCUTANEOUSLY AT BEDTIME (DME) Bedside Commode See Rx Instructions .Route .MEDSUPPLY Qty: 1 0RF Rx Instructions: As directed following Posterior Lumbar Interbody Fusion DOS: 12/06/21 (DME) Emma Garcia See Rx Instructions .Route .MEDSUPPLY Qty: 1 0RF Rx Instructions: As directed Posterior Lumbar Interbody Fusion DOS 12/06/21 metoprolol succinate 50 mg tablet extended release 24 hr See Rx Instructions .ROUTE .COMPLEX Qty: 90 0RF Dose Instruction: Take 1 tablet by mouth once daily Rx Instructions: Take 1 tablet by mouth once daily sumatriptan succinate 25 mg tablet See Rx Instructions PO .COMPLEX Qty: 7 0RF Rx Instructions: take 1 tab at onset of headache; if no relief may repeat 1 tab after at least 2 hrs; max = 4 tabs/24 hr PO pantoprazole 40 mg tablet,delayed release (DR/EC) 40 mg PO DAILY Qty: 90 0RF Reglan 10 mg tablet 10 mg PO BID PRN (Reason: headache) 10 Days Qty: 20 0RF Nurtec ODT 75 mg tablet,disintegrating 75 mg PO .Every other day 30 Days Qty: 15 0RF Rx Instructions: failed imitrex, rizatriptan, topamax, amitriptyline Discharge Orders: Discharge ED (Routine); Ordered 04/21/22 Ordered By: Casa Sifuentes Referrals: Ofe Paula FNP [Primary Care Provider] - Discharge Diet: Usual diet Discharge Activity: Increase activity as tolerated Patient Instructions: Migraine Headache (ED), Acute Headache (ED) Activity Restrictions/Additional Instructions: Thank you for visiting the emergency department. You were seen and evaluated for headache. The exact cause of your symptoms is unclear as discussed though likely related to underlying headache disorder. Please follow-up with your primary care provider and neurology. You will be given a prescription for Reglan and Benadryl. Please take in combination as needed up to 3 times daily for headache. You may also use Tylenol and ibuprofen however please do not exceed the daily recommended dosages and please keep in mind that many namebrand medications contain the same active ingredients. Please ensure that you are staying hydrated. Please return to the emergency department due to recurrence of symptoms, any new neurologic deficits, or anything else that you are concerned about and feel needs emergency department evaluation. Coding Level of Care Code ED Sewer Line Repairer for Marcos Scott
--- NOTE | 2022-04-21 21:00 | CTR_ITS ---
PROCEDURE INFORMATION: Exam: CT Head Without Contrast Exam date and time: 04/21/2022 9:23 PM Age: 46 years old Clinical indication: Pain; Headache; Migraine TECHNIQUE: Imaging protocol: Computed tomography of the head without contrast. Radiation optimization: All CT scans at this facility use at least one of these dose optimization techniques: automated exposure control; mA and/or kV adjustment per patient size (includes targeted exams where dose is matched to clinical indication); or iterative reconstruction. COMPARISON: CT head wo con* [id number] 12/03/2020 6:32 PM RADIATION DOSE METRICS: Total DLP (mGy-cm): 904.53 FINDINGS: Brain: Normal. No hemorrhage. Unremarkable white matter. No mass effect. Cerebral ventricles: No ventriculomegaly. Paranasal sinuses: Visualized sinuses are unremarkable. No fluid levels. Mastoid air cells: Visualized mastoid air cells are well aerated. Bones/joints: Unremarkable. No acute fracture. Soft tissues: Unremarkable. CT/CT head wo con* [id number] IMPRESSION: No acute intracranial abnormality.
[2022-04-21] MEDS: sodium chloride 0.9% 1,000 ML 999 ML IV (21:36)
[2022-04-21] MEDS: ketorolac 30 mg/mL INJ 15 MG IVP (21:37)
[2022-04-21] MEDS: metoclopramide 5 mg/mL SDV 2 mL 10 MG IVP (21:38)
[2022-04-21] MEDS: diphenhydrAMINE 50 mg/mL SDV 1mL 25 MG IVP (21:39)
[2022-04-21] MEDS: magnesium sulfate premix 2 GM/50 ML PIGGYBACK IV (21:41)
[2022-04-21 21:43] LABS: Basophils % 0.4 %; Eosinophils % 0.1 %; Hematocrit 42.4 % (42.0-52.0); Hemoglobin 12.9 g/dL (11.7-16.6); Lymphocytes % 11.5 %; Mean Corpuscular HGB Conc 30.4 g/dL (30.0-36.0); Mean Corpuscular Hemoglobin 22.5 pg (28.0-34.0); Monocytes # 0.2 10^3/uL (0.2-0.9); Monocytes % 2.3 %; Neutrophils # 7.14 10^3/uL (1.8-7.7); Neutrophils % 85.2 %; Nucleated Red Blood Cells % 0 %; Platelet Count 297 10^3/cmm (130-400); Red Blood Count 5.73 10^6/uL (4.1-5.3); Red Cell Distribution Width 16.9 % (12.1-15.1); White Blood Count 8.4 10^3/uL (4.0-10.0)
[2022-04-21 21:59] LABS: Alanine Aminotransferase 13 U/L (0-41); Albumin Level 4.8 g/dL (3.5-5.2); Alkaline Phosphatase 93 IU/L (40-130); Anion Gap 14.9 (5-19); Aspartate Amino Transferase 17 U/L (0-40); Blood Urea Nitrogen 15 mg/dL (6-20); Carbon Dioxide 25 mmol/L (22-29); Chloride 105 mmol/L (98-107); Globulin 3.2 g/dL (1.3-4.6); Glomerular Filtration Rate 54.8 mL/min (90-130); Glucose 182 mg/dL (65-115); Osmolality Calculated 295 mOsm/kg (285-295); Potassium 4.9 mmol/L (3.5-5.1); Sodium 140 mmol/L (136-145); Total Bilirubin 0.2 mg/dL (0.15-1.2)
[2022-04-21 23:04] VITALS: BP 130/80; PULSE 68; RESP 16; O2SAT 97
== END 2022-04-21 23:06 | disposition home or self-care (01) ==
PROVIDERS: Emergency Provider Emergency Medicine; PCP Registered Nurse
DX: G43.909 Migraine, unspecified, not intractable, without status migrainosus (principal); R11.2 Nausea with vomiting, unspecified; F17.220 Nicotine dependence, chewing tobacco, uncomplicated
CPT/HCPCS: 70450; 80053; 85025; 96365; 96375; 99284; J1200; J1885; J2765; J3475; J7030

== ENCOUNTER → 2022-04-26 08:38 | Outpatient (BNVA) | payer MEDICARE, MEDICAID, SELFPAY | PROVIDERS: PCP Registered Nurse; Visit Provider Orthopaedic Surgery | DX: M54.12 Radiculopathy, cervical region (principal); G44.209 Tension-type headache, unspecified, not intractable | CPT/HCPCS: 72040; 99213 ==

== ENCOUNTER → 2022-05-10 11:48 | Outpatient (BNVA) | payer MEDICARE, MEDICAID, SELFPAY | PROVIDERS: PCP Registered Nurse; Visit Provider Registered Nurse | DX: R35.0 Frequency of micturition (principal); E11.9 Type 2 diabetes mellitus without complications | CPT/HCPCS: 81000 ==

== ENCOUNTER 2022-05-30 17:02 | Emergency (ER) | payer MEDICARE, MEDICAID, SELFPAY ==
--- NOTE | 2022-05-30 17:07 | ECG_ITS ---
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 Measurements Intervals [place] Rate: 63 P: 32 AR: 180 QRS: 57 QRSD: 108 T: 14 QT: 415 QTc: 426 Interpretive Statements SINUS RHYTHM Compared to ECG 11/29/2021 10:18:09 No significant changes Electronically Signed On 05-31-2022 0:49:55 CDT by Elda Green M.D. [email or web address] [email or web address] [id number]
[2022-05-30 17:10] VITALS: BP 133/87; PULSE 68; RESP 17; TEMP 36.7; O2SAT 97; BMI 29.0
--- NOTE | 2022-05-30 17:31 | XRR_ITS ---
PROCEDURE INFORMATION: Exam: XR Chest Exam date and time: 05/30/2022 6:28 PM Age: 46 years old Clinical indication: Angina; Additional info: Chest pain TECHNIQUE: Imaging protocol: Radiologic exam of the chest. Views: 1 view. COMPARISON: CR XR chest 1V portable [id number] 01/22/2021 2:01 PM FINDINGS: Lungs: Low lung volumes. No consolidation. Pleural spaces: Unremarkable. No pleural effusion. No pneumothorax. Heart/Mediastinum: Unremarkable. No cardiomegaly. Bones/joints: Posterior fusion hardware spanning the cervicothoracic junction. XR/XR chest 1V portable [id number] IMPRESSION: No acute radiographic findings.
[2022-05-30 18:17] VITALS: BP 134/77; O2SAT 97
--- NOTE | 2022-05-30 18:21 | W.ED.CHESTPA ---
HPI - Chest Pain General: Chief Complaint: Chest Pain Stated Complaint: Chest pains, SOB Time Seen by Provider: 05/30/22 18:21 History of Present Illness: Mr. Junior is a 46-year-old gentleman with significant past medical history of mild acid reflux, rectus diastases, CKD, diabetes history of hepatitis who presents to the emergency department due to epigastric and chest pain. He reports just beginning to resume weightlifting regimen and was lifting today when he had sudden onset of severe burning sharp epigastric pain that radiated to the chest. Denies associated nausea or vomiting, no associated changes in bowel movements. Did have mild associated shortness of breath and pain with deep inspiration. Overall intensity of symptoms moderate to severe. Course has persisted. No other specific changes in health, exacerbating, or alleviating factors identified. Pertinent past history: other Onset (ago): hour(s) Timing of current episode: constant Onset: during exertion Pain location: epigastric Pain radiation: other Severity: moderate Quality: sharp and burning Relieving factors: nothing Exacerbating factors: nothing Associated symptoms: Reports no associated symptoms Review of Systems General: Reports: 10 or more systems reviewed and unremarkable except in HPI and below PFSH ED PFSH: Medical History ADD (attention deficit disorder) Angina decubitus Asthma Carpal tunnel syndrome Chest pain Chronic pain syndrome GERD (gastroesophageal reflux disease) Hematuria History of hepatitis Hyperlipidemia Hypertension Irritable bowel syndrome Peptic ulcer disease Pneumothorax Psychiatric care Seasonal allergies Staphylococcal infection of skin Tobacco use Type 2 diabetes mellitus Surgical History H/O chest tube placement H/O neck surgery H/O wrist surgery R History of back surgery History of carpal tunnel surgery L Family History Family/Other No problems noted. Other Adopted Social History Smoking and tobacco status: never smoked Quit status (tobacco): not considering quitting Second hand smoke exposure: Yes Smoking risk assessment/counseling performed?: No Alcohol intake: former Year of sobriety/quit date alcohol: 2021 Desire information about alcohol rehabilitation?: No Counseling given: No Desire information about substance/drug rehabilitation?: No Counseling given: No Lives independently: Yes Household members: spouse Marital status: Current occupational status: unemployed History of recent travel: No Current gender identity: Male Physical Exam Const: COMMON NORMALS: alert GENERAL APPEARANCE: cooperative and well developed HENMT: COMMON NORMALS: normocephalic and atraumatic HEAD & SCALP: normocephalic and atraumatic Eye: COMMON NORMALS: conjunctivae normal CONJUNCTIVA: Yes conjunctivae normal SCLERA: sclerae normal Neck/C-Spine: COMMON NORMALS: supple GENERAL: Yes trachea midline Resp: COMMON NORMALS: clear to auscultation bilaterally EFFORT & INSPECTION: Yes able to speak in complete sentences AUSCULTATION: clear to auscultation bilaterally Cardio: COMMON NORMALS: regular rate and regular rhythm RATE: regular rate RHYTHM: regular rhythm GI: COMMON NORMALS: Soft to palpation PALPATION: Yes Soft to palpation, Yes Tenderness to palpation present (GI) (epigastric) Details: RUQ, No Guarding due to palpation present (GI) and No Rigid due to palpation PERCUSSION: normal to percussion Extremity: GENERAL: Yes normal exam except as noted and No edema Neuro: COMMON NORMALS: moves all extremities SENSORIUM/ORIENTATION: Yes alert and No Orientation impaired Psych: COMMON NORMALS: mental status grossly normal and Normal thought process present THOUGHT PROCESS: Normal thought process present Course ED course: - Patient was seen and evaluated by me at bedside - Patient placed on cardiac monitors, IV access obtained - Initial evaluation notable for exam as above - Labs and xrays personally interpreted by me. EKG shows sinus rhythm, no STEMI. -Fluids and symptom treatment ordered - Labs notable for no leukocytosis, microcytic anemia. Metabolic panel similar to prior. Negative delta troponin - Imaging notable for no lobar consolidation or pneumothorax on chest x-ray. CT scans without clear pathology to explain symptoms. - Upon serial reexamination after treatment the patient was improved - Based on patient history, evaluation, and testing as interpreted the most likely cause of the patient's condition is chest and epigastric pain of unclear etiology likely related to GERD and/or musculoskeletal pain. Exam findings and clinical history overall low concern for primary cardiac etiology. - The results of ED evaluation were discussed with the patient including prescriptions and/or symptomatic cares (if applicable) including appropriate and responsible use, followup plan, and return precautions. The patient verbalized understanding and felt safe for discharge. - Patient discharged in satisfactory condition. Note: Click bubbles or prepopulated courtney in note writing are used for assistance with data collection and billing and are inherently more limited than narrative and other text portions of this note. Please use narrative for additional clinical history and defer to narrative/free test for any case of contradictory information. If information appears in only free text or click bubble it should be considered present or absent as reported. Please contact note technical proposal writer for clarifications of clinical information or contradictory information. MDM is a brief summary, contradictory or erroneous seeming information should be clarified and full note should be reviewed. Vital Signs: Vital signs: Vital Signs Temperature 98.1 F 05/30/22 17:10 Pulse Rate 65 05/30/22 22:15 Respiratory Rate 16 05/30/22 22:15 Blood Pressure 120/84 05/30/22 22:15 Pulse Oximetry 97 05/30/22 22:15 Oxygen Delivery Me thod 05/30/22 17:10 MDM - Chest Pain Medical Decision Making 46-year-old gentleman presented to the ER with chest pain. ED evaluation without acute cause identified. Clinical story recommended to some reflux esophageal pathology. Satisfactory for outpatient management. Medical Records I reviewed the patient's medical records. Lab Data I reviewed the patient's lab results. : 05/30/22 18:28 05/30/22 18:28 Radiology Impressions Chest X-Ray 05/30/22 17:31 IMPRESSION: No acute radiographic findings. Chest/Abdomen/Pelvis CT 05/30/22 19:36 IMPRESSION: No acute findings. IMPRESSION: 1. No acute findings on noncontrast CT. 2. Mild hepatic steatosis. Laboratory Results WBC 8.1 10^3/uL (4.0-10.0) 05/30/22 18:28 RBC 5.14 10^6/uL (4.1-5.3) 05/30/22 18:28 Hgb 12.2 g/dL (11.7-16.6) 05/30/22 18:28 Hct 40.8 % (42.0-52.0) L 05/30/22 18:28 MCV 79.4 fl (80-94) L 05/30/22 18:28 MCH 23.7 pg (28.0-34.0) L 05/30/22 18: MCHC 29.9 g/dL (30.0-36.0) L 05/30/22 18: RDW 16.6 % (12.1-15.1) H 05/30/22 18: Plt Count 241 10^3/cmm (130-400) 05/30/22 18: MPV 10.7 fL (7.4-10.4) H 05/30/22 18: Neut % (Auto) 55.8 % 05/30/22 18: Lymph % (Auto) 33.4 % 05/30/22 18: [place] % (Auto) 8.6 % 05/30/22 18: Eos % (Auto) 1.4 % 05/30/22: Baso % (Auto) 0.6 % 05/30/22 Neut # (Auto) 4.50 10^3/uL (1.8-7.7) 05/30/22: Lymph # (Auto) 2.7 10^3/uL (0.8-4.8) 05/30/22: [place] # (Auto) 0.7 10^3/uL (0.2-0.9) 05/30/22: Eos # (Auto) 0.1 10^3/uL (0.0-0.8) 05/30/22: Baso # (Auto) 0.1 10^3/uL (0.0-0.1) 05/30/22: Nucleated RBC % (auto) 0 % 05/30/22: Nucleated RBCs # 0.0 /100WBC 05/30/22 18: Sodium 138 mmol/L (136-145) 05/30/22 18: Potassium 4.0 mmol/L (3.5-5.1) 05/30/22: Chloride 103 mmol/L (98-107) 05/30/22 18: Carbon Dioxide 24 mmol/L (22-29) 05/30/22 18: Anion Gap 15.0 (5-19) 05/30/22 18: BUN 13 mg/dL (6-20) 05/30/22: Creatinine 1.4 mg/dL (0.7-1.2) H 05/30/22 18:28 GFR Calculation 54.8 mL/min (90-130) L 05/30/22 18:28 Glucose 142 mg/dL (65-115) H 05/30/22 18:28 Calculated Osmolality 289 mOsm/kg (285-295) 05/30/22 18:28 Calcium 9.1 mg/dL (8.5-10.5) 05/30/22 18:28 Total Bilirubin 0.2 mg/dL (0.15-1.2) 05/30/22 18:28 Direct Bilirubin 0.20 mg/dL (0.00-0.30) 05/30/22 18:28 AST 5 U/L (0-40) 05/30/22 18:28 ALT < 5 U/L (0-41) 05/30/22 18:28 Alkaline Phosphatase 84 IU/L (40-130) 05/30/22 18:28 Troponin T Baseline 11 ng/L (0-15) 05/30/22 18:28 Troponin T 120 Minute 11.28 ng/L (0-15) 05/30/22 20:54 Delta Troponin T 0.28 ABS# (0-10) 05/30/22 20:54 Total Protein 7.2 g/dL (6.6-8.7) 05/30/22 18:28 Albumin 4.4 g/dL (3.5-5.2) 05/30/22 18:28 Globulin 2.8 g/dL (1.3-4.6) 05/30/22 18:28 Lipase 48 U/L (13-60) 05/30/22 18:28 Discharge Plan Discharge Patient Disposition: Home Clinical Impression: Chest pain, Epigastric pain, Gastroesophageal reflux disease Condition: Stable Prescriptions: No Action albuterol sulfate [ProAir HFA] 90 mcg/actuation HFA aerosol inhaler 1 - 2 puff INHALATION Q6H PRN (Reason: shortness of breath or wheezing) 30 Days Qty: 18 2RF metformin 500 mg tablet extended release 24 hr See Rx Instructions .ROUTE .COMPLEX Qty: 90 0RF Dose Instruction: TAKE 1 TABLET BY MOUTH IN THE MORNING Rx Instructions: TAKE 1 TABLET BY MOUTH IN THE MORNING Farxiga 10 mg tablet See Rx Instructions .ROUTE .COMPLEX 90 Days Qty: 90 0RF Dose Instruction: TAKE 1 TABLET BY MOUTH ONCE DAILY IN THE MORNING Rx Instructions: TAKE 1 TABLET BY MOUTH ONCE DAILY IN THE MORNING tizanidine 4 mg capsule 4 mg PO DAILY PRN (Reason: muscle spasticity) 30 Days Qty: 30 2RF Ubrelvy 100 mg tablet 100 mg PO ONCE Qty: 10 0RF venlafaxine 75 mg capsule,extended release 24hr 75 mg PO DAILY Qty: 7 0RF Rx Instructions: take 1 capsule daily then increase 150mg venlafaxine 150 mg capsule,extended release 24hr 150 mg PO DAILY Qty: 30 0RF Lantus Solostar U-100 Insulin 100 unit/mL (3 mL) insulin pen 10 unit SUBCUT DAILY 30 Days Qty: 15 0RF diclofenac sodium [Voltaren Arthritis Pain] 1 % gel 2 g topical QID Qty: 100 3RF Rx Instructions: apply to feet for plantar fascitis Men's Multivitamin 400-20-300 mcg tablet PO DAILY buspirone 10 mg tablet 20 mg PO TID Qty: 180 2RF hydroxyzine HCl 50 mg tablet 50 mg PO QID PRN (Reason: anxiety) Qty: 120 2RF Viibryd 40 mg tablet 40 mg PO QAM Qty: 30 2RF quetiapine [Seroquel] 100 mg tablet 100 mg PO .HS Qty: 30 2RF dicyclomine 10 mg capsule 10 mg PO BID PRN (Reason: abdominal discomfort) 30 Days Qty: 45 5RF (DME) blood-glucose meter [Accu-Chek Britany Plus Meter] Misc See Rx Instructions .Route Qty: 1 0RF Rx Instructions: daily (DME) Accu-Chek Britany Plus test strp Strip See Rx Instructions .Route Qty: 100 1RF Rx Instructions: As directed (DME) lancets [Accu-Chek Softclix Lancets] Misc See Rx Instructions .Route Qty: 100 0RF Rx Instructions: As directed (DME) blood-glucose meter [Accu-Chek Guide Glucose Meter] Misc See Rx Instructions .Route Qty: 1 0RF Rx Instructions: As directed (DME) Accu-Chek Guide test strips Strip See Rx Instructions .Route Qty: 100 0RF Rx Instructions: test once daily metoprolol succinate 50 mg tablet extended release 24 hr See Rx Instructions .ROUTE .COMPLEX Qty: 90 0RF Dose Instruction: Take 1 tablet by mouth once daily Rx Instructions: Take 1 tablet by mouth once daily pantoprazole 40 mg tablet,delayed release (DR/EC) 40 mg PO DAILY Qty: 90 0RF Nurtec ODT 75 mg tablet,disintegrating 75 mg PO .Every other day 30 Days Qty: 15 0RF Rx Instructions: failed imitrex, rizatriptan, topamax, amitriptyline mupirocin 2 % ointment 1 applic topical BID Qty: 22 0RF bupropion HCl [Wellbutrin XL] 150 mg tablet extended release 24 hr 150 mg PO QAM Qty: 30 0RF Benadryl 25 mg capsule 25 mg PO TID PRN (Reason: headache) Qty: 10 0RF Compazine 10 mg tablet 10 mg PO BID PRN (Reason: headache) Qty: 6 0RF Paxlovid (EUA) 150 mg x 2- 100 mg tablet See Rx Instructions .ROUTE .COMPLEX Qty: 30 0RF Rx Instructions: take TWO 150 mg tablets of nirmatrelvir with ONE 100 mg tablet of ritonavir twice daily for 5 days Discharge Orders: Discharge ED (Routine); Ordered 05/30/22 Ordered By: Casa Sifuentes Referrals: Ofe Paula FNP [Primary Care Provider] - Discharge Diet: Advance as tolerated and Clear Liquid Discharge Activity: Increase activity as tolerated Patient Instructions: Chest Pain (ED), GERD (Gastroesophageal Reflux Disease) (ED), Epigastric Pain (ED), Opioid Safety Activity Restrictions/Additional Instructions: Thank you for visiting the emergency department. You were seen and evaluated for epigastric and chest pain. The exact cause of your symptoms is unclear though does not appear to need inpatient management at this time. Please follow-up with your primary care provider. They may want to consider additional cardiac testing. Return to the emergency department for worsening symptoms or anything else that you are concerned about and feel needs emergency department evaluation. Coding Level of Care Code ED Payroll And Benefits Coordinator for Marcos Fwchioma Exam Comprehensive
[2022-05-30 18:30] VITALS: BP 134/77; PULSE 62; RESP 21; O2SAT 98
[2022-05-30 18:35] LABS: Basophils # 0.1 10^3/uL (0.0-0.1); Basophils % 0.6 %; Eosinophils # 0.1 10^3/uL (0.0-0.8); Eosinophils % 1.4 %; Hematocrit 40.8 % (42.0-52.0); Hemoglobin 12.2 g/dL (11.7-16.6); Lymphocytes # 2.7 10^3/uL (0.8-4.8); Lymphocytes % 33.4 %; Mean Corpuscular HGB Conc 29.9 g/dL (30.0-36.0); Mean Corpuscular Hemoglobin 23.7 pg (28.0-34.0); Mean Corpuscular Volume 79.4 fl (80-94); Mean Platelet Volume 10.7 fL (7.4-10.4); Monocytes # 0.7 10^3/uL (0.2-0.9); Monocytes % 8.6 %; Neutrophils % 55.8 %; Nucleated Red Blood Cells % 0 %; Platelet Count 241 10^3/cmm (130-400); Red Blood Count 5.14 10^6/uL (4.1-5.3); Red Cell Distribution Width 16.6 % (12.1-15.1); White Blood Count 8.1 10^3/uL (4.0-10.0)
[2022-05-30 18:40] VITALS: RESP 15
[2022-05-30] MEDS: fentaNYL 50 mcg/mL INJ 2mL IVP (18:40)
[2022-05-30] MEDS: lidocaine 2% viscous 15 ML, aluminum-mag hydrox-simethicon 30 ML, sucralfate oral liq 1 GM PO (18:40)
[2022-05-30 19:04] LABS: Troponin(5th) Baseline 11 ng/L (0-15)
[2022-05-30 19:05] LABS: Blood Urea Nitrogen 13 mg/dL (6-20); Calcium 9.1 mg/dL (8.5-10.5); Carbon Dioxide 24 mmol/L (22-29); Chloride 103 mmol/L (98-107); Glomerular Filtration Rate 54.8 mL/min (90-130); Glucose 142 mg/dL (65-115); Osmolality Calculated 289 mOsm/kg (285-295); Sodium 138 mmol/L (136-145)
--- NOTE | 2022-05-30 19:36 | CTR_ITS ---
PROCEDURE INFORMATION: Exam: CT Chest Without Contrast; Diagnostic Exam date and time: 05/30/2022 8:22 PM Age: 46 years old Clinical indication: Abdominal pain; Chest pressure; Prior surgery; Surgery type: Cervical fusion. Lumbar fusion. Hernia repair. Patient HX: Patient was lifting weights and felt a pop in his abdomen. C/O chest and epigastric pain. ; Additional info: Epigastric/chest pain after lifting TECHNIQUE: Imaging protocol: Diagnostic computed tomography of the chest without contrast. Radiation optimization: All CT scans at this facility use at least one of these dose optimization techniques: automated exposure control; mA and/or kV adjustment per patient size (includes targeted exams where dose is matched to clinical indication); or iterative reconstruction. COMPARISON: CT angio chest PE protcl [id number] 01/22/2021 3:28 PM RADIATION DOSE METRICS: Total DLP (mGy-cm): 896.88 FINDINGS: Lungs: The lungs are well expanded. No consolidation. Airways normal in caliber patent. Pleural spaces: Unremarkable. No pneumothorax. No pleural effusion. Heart: The heart is normal in size. No coronary artery calcification. No pericardial effusion. Lymph nodes: Unremarkable. No enlarged lymph nodes. 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 The aorta crosses to the left at the hiatus. Bones/joints: No acute or aggressive osseous lesion. Partially imaged posterior fusion hardware extending to the T2 level. Soft tissues: Unremarkable. PROCEDURE INFORMATION: Exam: CT Abdomen And Pelvis Without Contrast Exam date and time: 05/30/2022 8:22 PM Age: 46 years old Clinical indication: Abdominal pain; Chest pressure; Prior surgery; Surgery type: Cervical fusion. Lumbar fusion. Hernia repair. Patient HX: Patient was lifting weights and felt a pop in his abdomen. C/O chest and epigastric pain. ; Additional info: Epigastric/chest pain after lifting TECHNIQUE: Imaging protocol: Computed tomography of the abdomen and pelvis without contrast. Radiation optimization: All CT scans at this facility use at least one of these dose optimization techniques: automated exposure control; mA and/or kV adjustment per patient size (includes targeted exams where dose is matched to clinical indication); or iterative reconstruction. COMPARISON: CT abdomen wo con [id number] 12/31/2020 1:11 PM RADIATION DOSE METRICS: Total DLP (mGy-cm): 896.88 FINDINGS: Liver: Mild hepatic steatosis. Gallbladder and bile ducts: Normal. No calcified stones. No ductal dilation. Pancreas: Normal. No ductal dilation. Spleen: Normal. No splenomegaly. Adrenal glands: Normal. No mass. Kidneys and ureters: No renal or ureteral calculi. No hydroureteronephrosis. Normal renal contours. Stomach and bowel: Normal. No obstruction. No inflammatory changes appreciated. Appendix: No evidence of appendicitis. Intraperitoneal space: No free air. No significant fluid collection. Vasculature: No abdominal aortic aneurysm. Lymph nodes: Unremarkable. No enlarged lymph nodes. Urinary bladder: Bladder partially filled. No stones. Reproductive: Unremarkable as visualized. Bones/joints: No acute or aggressive osseous lesion. Posterior decompression and fusion at L4/5 with disc spacer. Soft tissues: Unremarkable. CT/CT chest abdpel [id number] IMPRESSION: No acute findings. IMPRESSION: 1. No acute findings on noncontrast CT. 2. Mild hepatic steatosis.
[2022-05-30] MEDS: sodium chloride 0.9% 500 ML 999 ML IV (19:48)
[2022-05-30] MEDS: ketorolac 30 mg/mL INJ 15 MG IVP (19:48)
[2022-05-30 19:55] LABS: Albumin Level 4.4 g/dL (3.5-5.2); Alkaline Phosphatase 84 IU/L (40-130); Globulin 2.8 g/dL (1.3-4.6); Lipase 48 U/L (13-60); Total Bilirubin 0.2 mg/dL (0.15-1.2); Total Protein 7.2 g/dL (6.6-8.7)
[2022-05-30 20:18] LABS: Alanine Aminotransferase < 5 U/L (0-41); Aspartate Amino Transferase 5 U/L (0-40)
[2022-05-30 21:30] LABS: Troponin 5 2HR 11.28 ng/L (0-15)
[2022-05-30] MEDS: dicyclomine 10 mg Capsule PO (21:41)
[2022-05-30] MEDS: methocarbamol 750 mg Tablet PO (21:41)
[2022-05-30] MEDS: pantoprazole 40 mg SDV IVP (21:41)
[2022-05-30 21:49] LABS: Troponin 5 2HR Delta 0.28 ABS# (0-10)
[2022-05-30 22:15] VITALS: BP 120/84; PULSE 65; RESP 16; O2SAT 97
== END 2022-05-30 22:17 | disposition home or self-care (01) ==
PROVIDERS: Emergency Medicine; Emergency Provider Emergency Medicine; PCP Registered Nurse
DX: R07.9 Chest pain, unspecified (principal); R10.13 Epigastric pain; K21.9 Gastro-esophageal reflux disease without esophagitis; Z79.84 Long term (current) use of oral hypoglycemic drugs; Z77.22 Contact with and (suspected) exposure to environmental tobacco smoke (acute) (chronic); E78.5 Hyperlipidemia, unspecified; I10 Essential (primary) hypertension; E11.9 Type 2 diabetes mellitus without complications
CPT/HCPCS: 71045; 71250; 74176; 80048; 80076; 83690; 84484; 85025; 93005; 96361; 96374; 96375; 99285; C9113; J1885; J3010; J7040

== ENCOUNTER → 2022-06-01 08:06 | Outpatient (BNVA) | payer MEDICARE, MEDICAID, SELFPAY | PROVIDERS: PCP Registered Nurse; Referring Provider Orthopaedic Surgery; Visit Provider Specialist | DX: G43.101 Migraine with aura, not intractable, with status migrainosus (principal); F41.1 Generalized anxiety disorder; F33.2 Major depressive disorder, recurrent severe without psychotic features | CPT/HCPCS: 99204 ==

== ENCOUNTER 2022-06-03 16:49 | Emergency (ER) | payer MEDICARE, MEDICAID, SELFPAY ==
[2022-06-03] VITALS (8 sets, daily range): BP systolic 127–163; BP diastolic 78–96; PULSE 52–71; RESP 17–21; TEMP 37.3–37.4; O2SAT 94–99; BMI 29.1
--- NOTE | 2022-06-03 16:56 | XRR_ITS ---
PROCEDURE INFORMATION: Exam: XR Chest Exam date and time: 06/03/2022 6:06 PM Age: 46 years old Clinical indication: Shortness of breath; Additional info: SOB TECHNIQUE: Imaging protocol: Radiologic exam of the chest. Views: 1 view. COMPARISON: [place] [id number] 05/30/2022 8:22 PM FINDINGS: Lungs: No consolidative pulmonary infiltrates are noted. Pleural spaces: No pleural effusion. No pneumothorax. Heart/Mediastinum: No cardiomegaly. Vasculature: Congenital right-sided aortic arch. Bones/joints: Postop change of the cervicothoracic spine. No acute osseous abnormality. XR/XR chest 1V portable [id number] IMPRESSION: No acute abnormality demonstrated.
--- NOTE | 2022-06-03 17:58 | ED_ITS ---
HPI - COVID General: Chief Complaint: COVID symptoms Stated Complaint: covid symptoms Time Seen by Provider: 06/03/22 17:56 Triage information: Has fever, cough or shortness of breath . Exposure to COVID + person last 14 days History of Present Illness: Mr. Junior is a 46-year-old gentleman with significant past medical history of migraines, CKD, diabetes, psychiatric disorder who presents to the emergency department due to COVID symptoms. He reports onset of symptoms last night started with chills and body aches. He subsequently had a positive home test today. He endorses headache which has not been improved with his typical migraine treatment which is on the top of his head. He also has cough, generalized malaise, and some chest heaviness. Overall course of symptoms has worsened. Intensity is moderate to severe. No other specific changes in health, exacerbating, or alleviating factors identified. Prior covid testing: yes, results known Prior testing date: 05/22/22 COVID 19 common symptoms: positive cough, dyspnea, fatigue, body aches, h eadache(s), nasal congestion, nausea and chest tightness Onset (ago): hour(s) Severity: moderate Pertinent comorbid conditions: diabetes, hypertension and other COVID Results: SARS-CoV-2 Antigen (Rapid) Positive (Negative) H 06/03/22 17:5 5 SARS-CoV-2 RNA (RT-PCR) Not detected (NOT DETECTED) 05/06/20 0 9:17 Nasal/Oral Coronavirus 2019 PCR Not detected 01/15/21 12:29 SARS-CoV-2 (PCR) Not detected (NOT DETECT) 11/30/21 08:52 Coronavirus Type 229E (PCR) Not detected (NOT DETECT) 11/30/21 08:52 Review of Systems General: Reports: 10 or more systems reviewed and unremarkable except in HPI and below Const: Reports: body aches and fatigue ENMT: Reports: nasal congestion Resp: Reports: dyspnea GI: Reports: nausea Neuro: Reports: headache(s) PFS ED PFSH: Medical History ADD (attention deficit disorder) Angina decubitus Asthma Carpal tunnel syndrome Chest pain Chronic pain syndrome GERD (gastroesophageal reflux disease) Hematuria History of hepatitis Hyperlipidemia Hypertension Irritable bowel syndrome Peptic ulcer disease Pneumothorax Psychiatric care Seasonal allergies Staphylococcal infection of skin Tobacco use Type 2 diabetes mellitus Surgical History H/O chest tube placement H/O neck surgery H/O wrist surgery R History of back surgery History of carpal tunnel surgery L Family History Family/Other No problems noted. Other Adopted Social History Smoking and tobacco status: current every day smoker cigarettes Packs smoked per day: 0.1 and smokeless tobacco Smokeless tobacco user: chewing tobacco and snuff Smokeless tobacco details: 1 can/ 2 days Quit status (tobacco): not considering quitting Second hand smoke exposure: Yes Smoking risk assessment/counseling performed?: No Alcohol intake: former Year of sobriety/quit date alcohol: 2021 Desire information about alcohol rehabilitation?: No Counseling given: No Desire information about substance/drug rehabilitation?: No Counseling given: No Lives independently: Yes Household members: spouse Marital status: Current occupational status: unemployed History of recent travel: No Current gender identity: Male Physical Exam Const: COMMON NORMALS: alert GENERAL APPEARANCE: cooperative, well developed and ill appearing (Somewhat) HENMT: COMMON NORMALS: normocephalic and atraumatic HEAD & SCALP: normocephalic and atraumatic THROAT: posterior oropharynx normal Eye: COMMON NORMALS: conjunctivae normal CONJUNCTIVA: Yes conjunctivae normal SCLERA: sclerae normal Neck/C-Spine: COMMON NORMALS: supple GENERAL: Yes trachea midline Resp: COMMON NORMALS: normal respiratory effort EFFORT & INSPECTION: Yes able to speak in complete sentences AUSCULTATION: diminished lung sounds Cardio: COMMON NORMALS: regular rate and regular rhythm RATE: regular rate RHYTHM: regular rhythm GI: COMMON NORMALS: Soft to palpation PALPATION: Yes Soft to palpation and No Tenderness to palpation present (GI) PERCUSSION: normal to percussion Extremity: GENERAL: Yes normal exam except as noted and No edema Neuro: COMMON NORMALS: moves all extremities SENSORIUM/ORIENTATION: Yes alert and No Orientation impaired Psych: COMMON NORMALS: mental status grossly normal and Normal thought process present THOUGHT PROCESS: Normal thought process present Course ED course: - Patient was seen and evaluated by me at bedside - Patient placed on cardiac monitors, IV access obtained - Initial evaluation notable for exam as above - Labs and xrays personally interpreted by wi -Fluids and headache treatment ordered - Labs notable for no leukocytosis, microcytic anemia. Metabolic panel with mildly elevated creatinine. No evidence of urinary tract infection, ketones negative. COVID-positive. - Imaging notable for no lobar consolidation or pneumothorax on chest x-ray. CT head negative for acute intracranial pathology. - Upon serial reexamination after treatment the patient was improved with additional treatment - Based on patient history, evaluation, and testing as interpreted the most likely cause of the patient's condition is COVID-19 - The results of ED evaluation were discussed with the patient including prescriptions and/or symptomatic cares (if applicable) including appropriate and responsible use, followup plan, and return precautions. The patient verbalized understanding and felt safe for discharge. - Patient discharged in satisfactory condition. Note: Click bubbles or prepopulated courtney in note writing are used for assistance w ith data collection and billing and are inherently more limited than narrative and other text portions of this note. Please use narrative for additional clinical history and defer to narrative/free test for any case of contradictory information. If information appears in only free text or click bubble it should be considered present or absent as reported. Please contact note information writer for clarifications of clinical information or contradictory information. MDM is a brief summary, contradictory or erroneous seeming information should be clarified and full note should be reviewed. Vital Signs: Vital signs: Vital Signs Temperature 99.1 F 06/03/22 21:53 Pulse Rate 54 L 06/03/22 21:53 Respiratory Rate 18 06/03/22 21:53 Blood Pressure 144/84 06/03/22 21:53 Pulse Oximetry 97 06/03/22 21:53 Oxygen Delivery Hi thod 06/03/22 21:20 MDM - COVID Medical Decision Making 46-year-old male presenting with COVID symptoms. Patient improved with treatment. ED testing confirmed COVID diagnosis. Patient wishes to proceed with Paxil bid which will be prescribed after discussion. Satisfactory for outpatient management with strict return precautions given. Medical Records I reviewed the patient's medical records. Lab Data I reviewed the patient's lab results. : 06/03/22 18:15 06/03/22 18:15 Radiology Impressions Chest X-Ray 06/03/22 16:56 IMPRESSION: No acute abnormality demonstrated. Head CT 06/03/22 19:53 IMPRESSION: 1. No acute intracranial abnormality demonstrated. 2. There is no interval change from the prior examination. Laboratory Results WBC 5.1 10^3/uL (4.0-10.0) 06/03/22 18:15 RBC 4.83 10^6/uL (4.1-5.3) 06/03/22 18:15 Hgb 11.2 g/dL (11.7-16.6) L 06/03/22 18:15 Hct 37.2 % (42.0-52.0) L 06/03/22 18:15 MCV 77.0 fl (80-94) L 06/03/22 18:15 MCH 23.2 pg (28.0-34.0) L 06/03/22 18:15 MCHC 30.1 g/dL (30.0-36.0) 06/03/22 18:15 RDW 16.5 % (12.1-15.1) H 06/03/22 18:15 Plt Count 162 10^3/cmm (130-400) 06/03/22 18:15 MPV 10.2 fL (7.4-10.4) 06/03/22 18:15 Neut % (Auto) 59.6 % 06/03/22 18:15 Lymph % (Auto) 16.2 % 06/03/22 18:15 Bullock % (Auto) 23.2 % 06/03/22 18:15 Eos % (Auto) 0.2 % 06/03/22 18:15 Baso % (Auto) 0.4 % 06/03/22 18:15 Neut # (Auto) 3.06 10^3/uL (1.8-7.7) 06/03/22 18:15 Lymph # (Auto) 0.8 10^3/uL (0.8-4.8) 06/03/22 18:15 Bullock # (Auto) 1.2 10^3/uL (0.2-0.9) H 06/03/22 18:15 Eos # (Auto) 0.0 10^3/uL (0.0-0.8) 06/03/22 18:15 Baso # (Auto) 0.0 10^3/uL (0.0-0.1) 06/03/22 18:15 Nucleated RBC % (auto) 0 % 06/03/22 18:15 Nucleated RBCs # 0.0 /100WBC 06/03/22 18:15 Sodium 137 mmol/L (136-145) 06/03/22 18:15 Potassium 3.9 mmol/L (3.5-5.1) 06/03/22 18:15 Chloride 100 mmol/L (98-107) 06/03/22 18:15 Carbon Dioxide 28 mmol/L (22-29) 06/03/22 18:15 Anion Gap 12.9 (5-19) 06/03/22 18:15 BUN 9 mg/dL (6-20) 06/03/22 18:15 Creatinine 1.4 mg/dL (0.7-1.2) H 06/03/22 18:15 GFR Calculation 54.8 mL/min (90-130) L 06/03/22 18:15 Glucose 86 mg/dL (65-115) 06/03/22 18:15 Calculated Osmolality 282 mOsm/kg (285-295) L 06/03/22 18:15 Calcium 9.2 mg/dL (8.5-10.5) 06/03/22 18:15 Urine Color Yellow (Yellow) 06/03/22 18:15 Urine Appearance Clear (CLEAR) 06/03/22 18:15 Urine pH 7 (5-7) 06/03/22 18:15 Ur Specific [place] 1.005 (1.005-1.030) 06/03/22 18:15 Urine Protein Neg (Negative) 06/03/22 18:15 Urine Glucose (UA) 4+ (Normal) H 06/03/22 18:15 Urine Ketones Negative (Negative) 06/03/22 18:15 Urine Blood Neg (Negative) 06/03/22 18:15 Urine Nitrate Negative (Negative) 06/03/22 18:15 Urine Bilirubin Neg (Negative) 06/03/22 18:15 Urine Urobilinogen Neg mg/dL (Negative) 06/03/22 18:15 Ur Leukocyte Esterase Negative (Negative) 06/03/22 18:15 SARS-CoV-2 Ag (Rapid) Positive (Negative) H 06/03/22 17:55 SARS-CoV-2 Antigen (Rapid) Positive (Negative) H 08/12/22 17:5 5 SARS-CoV-2 RNA (RT-PCR) Not detected (NOT DETECTED) 05/06/20 0 9:17 Nasal/Oral Coronavirus 2019 PCR Not detected 01/15/21 12:29 SARS-CoV-2 (PCR) Not detected (NOT DETECT) 11/30/21 08:52 Coronavirus Type 229E (PCR) Not detected (NOT DETECT) 11/30/21 08:52 Discharge Plan Discharge Patient Disposition: Home Clinical Impression: COVID-19, Headache Condition: Stable Prescriptions: New Compazine 10 mg tablet 10 mg PO BID PRN (Reason: headache) Qty: 6 0RF Paxlovid (EUA) 150 mg x 2- 100 mg tablet See Rx Instructions .ROUTE .COMPLEX Qty: 30 0RF Rx Instructions: take TWO 150 mg tablets of nirmatrelvir with ONE 100 mg tablet of ritonavir twice daily for 5 days No Action albuterol sulfate [ProAir HFA] 90 mcg/actuation HFA aerosol inhaler 1 - 2 puff INHALATION Q6H PRN (Reason: shortness of breath or wheezing) 30 Days Qty: 18 2RF metformin 500 mg tablet extended release 24 hr See Rx Instructions .ROUTE .COMPLEX Qty: 90 0RF Dose Instruction: TAKE 1 TABLET BY MOUTH IN THE MORNING Rx Instructions: TAKE 1 TABLET BY MOUTH IN THE MORNING Farxiga 10 mg tablet See Rx Instructions .ROUTE .COMPLEX 90 Days Qty: 90 0RF Dose Instruction: TAKE 1 TABLET BY MOUTH ONCE DAILY IN THE MORNING Rx Instructions: TAKE 1 TABLET BY MOUTH ONCE DAILY IN THE MORNING tizanidine 4 mg capsule 4 mg PO DAILY PRN (Reason: muscle spasticity) 30 Days Qty: 30 2RF Ubrelvy 100 mg tablet 100 mg PO ONCE Qty: 10 0RF venlafaxine 75 mg capsule,extended release 24hr 75 mg PO DAILY Qty: 7 0RF Rx Instructions: take 1 capsule daily then increase 150mg venlafaxine 150 mg capsule,extended release 24hr 150 mg PO DAILY Qty: 30 0RF Lantus Solostar U-100 Insulin 100 unit/mL (3 mL) insulin pen 10 unit SUBCUT DAILY 30 Days Qty: 15 0RF diclofenac sodium [Voltaren Arthritis Pain] 1 % gel 2 g topical QID Qty: 100 3RF Rx Instructions: apply to feet for plantar fascitis Men's Multivitamin 400-20-300 mcg tablet PO DAILY buspirone 10 mg tablet 20 mg PO TID Qty: 180 2RF hydroxyzine HCl 50 mg tablet 50 mg PO QID PRN (Reason: anxiety) Qty: 120 2RF Viibryd 40 mg tablet 40 mg PO QAM Qty: 30 2RF quetiapine [Seroquel] 100 mg tablet 100 mg PO .HS Qty: 30 2RF dicyclomine 10 mg capsule 10 mg PO BID PRN (Reason: abdominal discomfort) 30 Days Qty: 45 5RF (DME) blood-glucose meter [Accu-Chek Britany Plus Meter] Misc See Rx Instructions .Route Qty: 1 0RF Rx Instructions: daily (DME) Accu-Chek Britany Plus test strp Strip See Rx Instructions .Route Qty: 100 1RF Rx Instructions: As directed (DME) lancets [Accu-Chek Softclix Lancets] Misc See Rx Instructions .Route Qty: 100 0RF Rx Instructions: As directed (DME) blood-glucose meter [Accu-Chek Guide Glucose Meter] Misc See Rx Instructions .Route Qty: 1 0RF Rx Instructions: As directed (DME) Accu-Chek Guide test strips Strip See Rx Instructions .Route Qty: 100 0RF Rx Instructions: test once daily metoprolol succinate 50 mg tablet extended release 24 hr See Rx Instructions .ROUTE .COMPLEX Qty: 90 0RF Dose Instruction: Take 1 tablet by mouth once daily Rx Instructions: Take 1 tablet by mouth once daily pantoprazole 40 mg tablet,delayed release (DR/EC) 40 mg PO DAILY Qty: 90 0RF Nurtec ODT 75 mg tablet,disintegrating 75 mg PO .Every other day 30 Days Qty: 15 0RF Rx Instructions: failed imitrex, rizatriptan, topamax, amitriptyline mupirocin 2 % ointment 1 applic topical BID Qty: 22 0RF bupropion HCl [Wellbutrin XL] 150 mg tablet extended release 24 hr 150 mg PO QAM Qty: 30 0RF Benadryl 25 mg capsule 25 mg PO TID PRN (Reason: headache) Qty: 10 0RF Discharge Orders: Discharge ED (Routine); Ordered 06/03/22 Ordered By: Casa Sifuentes Referrals: Ofe Paula, MIKEY [Primary Care Provider] - Discharge Diet: Usual diet Discharge Activity: Increase activity as tolerated Patient Instructions: Prochlorperazine (By mouth) (Compazine), Nirmatrelvir/Ritonavir (By mouth) (Paxlovid), Acute Headache (ED), COVID-19 (Coronavirus Disease 2019) (ED) Activity Restrictions/Additional Instructions: Thank you for visiting the emergency department. You were seen and evaluated for COVID symptoms and headache. The most likely cause of these generalized symptoms is COVID. You will be discharged with Paxil of end prescription which, as discussed, it is approved under emergency use authorization. Additionally you will be discharged with a prescription for Compazine which can help with severe headaches. Please ensure that you are staying hydrated. Please return to the emergency department for inability to tolerate p.o. intake, uncontrolled symptoms, oxygen saturation at rest less than 90%, or anything else that you are concerned about a feel needs emergency department evaluation. Coding Level of Care Code ED Grinder Outside Diameter for Marcos Scott Exam Comprehensive
--- NOTE | 2022-06-03 18:08 | ECG_ITS ---
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 Measurements Intervals [place] Rate: 68 P: 61 AK: 190 QRS: 70 QRSD: 102 T: 52 QT: 370 QTc: 395 Interpretive Statements Possible SINUS RHYTHM NONSPECIFIC T-WAVE ABNORMALITY INTERPRETATION BASED ON A DEFAULT AGE OF 40 YEARS Compared to ECG 05/30/2022 17:24:34 T-wave abnormality now present Electronically Signed On 06-03-2022 18:38:15 CDT by Elda Green M.D. [id number]
[2022-06-03 18:18] LABS: SARS Covid-2 Antigen Positive (Negative)
[2022-06-03] MEDS: diphenhydrAMINE 50 mg/mL SDV 1mL 25 MG IVP (18:26)
[2022-06-03] MEDS: metoclopramide 5 mg/mL SDV 2 mL 10 MG IVP (18:26)
[2022-06-03] MEDS: sodium chloride 0.9% 500 ML 999 ML IV ×2 (18:26→20:23)
[2022-06-03 18:31] LABS: Basophils % 0.4 %; Eosinophils % 0.2 %; Hematocrit 37.2 % (42.0-52.0); Hemoglobin 11.2 g/dL (11.7-16.6); Lymphocytes # 0.8 10^3/uL (0.8-4.8); Lymphocytes % 16.2 %; Mean Corpuscular HGB Conc 30.1 g/dL (30.0-36.0); Mean Corpuscular Hemoglobin 23.2 pg (28.0-34.0); Mean Platelet Volume 10.2 fL (7.4-10.4); Monocytes # 1.2 10^3/uL (0.2-0.9); Monocytes % 23.2 %; Neutrophils # 3.06 10^3/uL (1.8-7.7); Neutrophils % 59.6 %; Nucleated Red Blood Cells % 0 %; Platelet Count 162 10^3/cmm (130-400); Red Blood Count 4.83 10^6/uL (4.1-5.3); Red Cell Distribution Width 16.5 % (12.1-15.1); White Blood Count 5.1 10^3/uL (4.0-10.0)
[2022-06-03 18:35] LABS: Add Urine Microscopic? NO; Charge for UA Resulting for Rev
[2022-06-03 18:41] LABS: Bilirubin Urine Neg (Negative); Blood Urine Neg (Negative); Glucose Urine UA 4+ (Normal); Ketones Urine Negative (Negative); Leukocyte Esterase Urine Negative (Negative); Nitrate Urine Negative (Negative); Protein Urine Neg (Negative); Specific Gravity, Urine 1.005 (1.005-1.030); Urine Appearance Clear (CLEAR); Urine Color Yellow (Yellow); Urobilinogen Urine Neg (Negative); pH Urine 7 (5-7)
[2022-06-03 19:02] LABS: Anion Gap 12.9 (5-19); Blood Urea Nitrogen 9 mg/dL (6-20); Calcium 9.2 mg/dL (8.5-10.5); Carbon Dioxide 28 mmol/L (22-29); Chloride 100 mmol/L (98-107); Glomerular Filtration Rate 54.8 mL/min (90-130); Glucose 86 mg/dL (65-115); Osmolality Calculated 282 mOsm/kg (285-295); Potassium 3.9 mmol/L (3.5-5.1); Sodium 137 mmol/L (136-145)
--- NOTE | 2022-06-03 19:53 | CTR_ITS ---
PROCEDURE INFORMATION: Exam: CT Head Without Contrast Exam date and time: 06/03/2022 8:07 PM Age: 46 years old Clinical indication: Other: Headache; Patient HX: At home covid test positive today TECHNIQUE: Imaging protocol: Computed tomography of the head without contrast. Radiation optimization: All CT scans at this facility use at least one of these dose optimization techniques: automated exposure control; mA and/or kV adjustment per patient size (includes targeted exams where dose is matched to clinical indication); or iterative reconstruction. COMPARISON: CT head wo con* [id number] 04/21/2022 9:23 PM RADIATION DOSE METRICS: Total DLP (mGy-cm): 1097.08 FINDINGS: Brain: Unremarkable. No hemorrhage. No significant white matter disease. No edema. Cerebral ventricles: No ventriculomegaly. Paranasal sinuses: Visualized sinuses are unremarkable. No fluid levels. Mastoid air cells: Unremarkable as visualized. No mastoid effusion. Bones/joints: Unremarkable. No acute fracture. Soft tissues: Unremarkable. CT/CT head wo con* [id number] IMPRESSION: 1. No acute intracranial abnormality demonstrated. 2. There is no interval change from the prior examination.
[2022-06-03] MEDS: prochlorperazine 10 mg/2 mL Inj IVP (20:23)
== END 2022-06-03 21:56 | disposition home or self-care (01) ==
PROVIDERS: Emergency Medicine; Emergency Provider Emergency Medicine; PCP Registered Nurse
DX: U07.1 COVID-19 (principal); R51.9 Headache, unspecified; Z79.84 Long term (current) use of oral hypoglycemic drugs; Z79.82 Long term (current) use of aspirin; E78.5 Hyperlipidemia, unspecified; I10 Essential (primary) hypertension; E11.9 Type 2 diabetes mellitus without complications; F17.210 Nicotine dependence, cigarettes, uncomplicated
CPT/HCPCS: 70450; 71045; 80048; 81003; 85025; 87426; 93005; 96361; 96365; 96375; 99285; J0780; J1200; J2765; J3475; J7040

== ENCOUNTER → 2022-06-14 09:12 | Outpatient (BNVA) | payer MEDICARE, MEDICAID, SELFPAY | PROVIDERS: PCP Registered Nurse; Visit Provider Registered Nurse | DX: R53.83 Other fatigue (principal) | CPT/HCPCS: 84403 ==

== ENCOUNTER → 2022-06-16 14:09 | Outpatient (BNVA) | payer MEDICARE, MEDICAID, SELFPAY | PROVIDERS: PCP Registered Nurse; Visit Provider Registered Nurse | DX: R39.9 Unspecified symptoms and signs involving the genitourinary system (principal); E16.2 Hypoglycemia, unspecified | CPT/HCPCS: 81000 ==

== ENCOUNTER → 2022-07-07 13:32 | Outpatient (BNVA) | payer MEDICARE, MEDICAID, SELFPAY | PROVIDERS: PCP Registered Nurse; Visit Provider Registered Nurse | DX: R53.82 Chronic fatigue, unspecified (principal); E11.22 Type 2 diabetes mellitus with diabetic chronic kidney disease; E78.5 Hyperlipidemia, unspecified | CPT/HCPCS: 80061; 82607; 83721; 84443 ==

== ENCOUNTER → 2022-07-28 08:30 | Outpatient (BNVA) | payer MEDICARE, MEDICAID, SELFPAY | PROVIDERS: PCP Registered Nurse; Visit Provider Nurse Practitioner Family | DX: E11.22 Type 2 diabetes mellitus with diabetic chronic kidney disease (principal); N18.30 Chronic kidney disease, stage 3 unspecified; R53.82 Chronic fatigue, unspecified; Z12.5 Encounter for screening for malignant neoplasm of prostate; R30.0 Dysuria | CPT/HCPCS: 80053; 81000; 83036; 85025; G0103 ==

== ENCOUNTER 2022-11-17 07:17 | Outpatient (CLI) | payer MEDICARE, MEDICAID, SELFPAY ==
--- NOTE | 2022-11-17 07:30 | MR_ITS ---
WS: [id number] MRI BRAIN WITH HIGH-RESOLUTION IMAGING THROUGH THE INTERNAL AUDITORY CANALS WITHOUT AND WITH CONTRAST HISTORY: BILATERAL TINNITUS COMPARISON: None available. TECHNIQUE: Multiplanar, multisequence imaging is performed through the brain. Additional 3 mm imaging performed in multiple planes through the internal auditory canal. Postcontrast imaging with 18 ml's of MultiHance. No acute intracranial hemorrhage, midline shift, edema or mass effect. Very minimal small vessel ischemic type changes in the subcortical white matter. No volume loss. No p rior infarct. Ventricles and extra-axial spaces are normal. No inferior displacement of cerebellar tonsils. Clivus and pituitary gland are normal. Internal and external auditory canals: Unremarkable. Cranial nerves VII and VIII complexes: Unremarkable. No enhancement or mass. Cerebellopontine angles: Normal. Paranasal sinuses: Normal. Mastoid air cells: Normal. Calvarium and scalp: Normal. Visualized [place] of [place] and dural venous sinuses demonstrate no abnormality. MR/MR iac's wo/w con* [id number] IMPRESSION: 1. No abnormality along the internal auditory canals. No mass or abnormal enha ncement. 2. Very minimal small vessel ischemic type changes. 3. No mass.
[2022-11-17] MEDS: gadobenate dimeglumine 20 mL vial IV (08:21)
== END 2022-11-17 07:18 | disposition home or self-care (01) ==
PROVIDERS: PCP Registered Nurse; Visit Provider Registered Nurse
DX: H93.13 Tinnitus, bilateral (principal)
CPT/HCPCS: 70553; A9577

== ENCOUNTER 2022-11-28 19:29 | Emergency (ER) | payer MEDICARE, MEDICAID, SELFPAY ==
[2022-11-28 19:35] VITALS: BP 116/75; PULSE 66; RESP 18; TEMP 36.8; O2SAT 98; BMI 28.6
--- NOTE | 2022-11-28 19:49 | ED_ITS ---
HPI - Abdominal Pain General: Chief Complaint: Abdominal Pain Stated Complaint: abd pain Time Seen by Provider: 11/28/22 19:44 Source: patient Mode of arrival: ambulatory Limitations: no limitations History of Present Illness: 47-year-old male states been having right upper quadrant pain over the last 2 days he states that the pain has been intermittent in nature much worse with eating he states he has not been able to really eat he states that the pain radiates to his shoulder as well he states he feels like it is his gallbladder he has had no vomiting or diarrhea denies any fevers denies any chest pain. Associated Symptoms: Denies chills, dysuria and fever(s) Review of Systems Const: Denies: fever(s), chills, body aches or change in appetite Eyes: Denies: blurry vision or eye discomfort ENMT: Denies: throat pain or dental pain Card: Denies: chest pain Resp: Denies: dyspnea GI: Reports: abdominal pain : Denies: dysuria Musc: Denies: neck pain or back pain Skin/Breast: Denies: rash Neuro: Denies: headache(s) Psych: Denies: depression Nba/Lymph: Denies: easy bruising All/Imm: Denies: urticaria PFSH ED PFSH: Medical History ADD (attention deficit disorder) Angina decubitus Asthma Carpal tunnel syndrome Chest pain Chronic pain syndrome GERD (gastroesophageal reflux disease) Hematuria History of hepatitis Hyperlipidemia Hypertension Irritable bowel syndrome Peptic ulcer disease Pneumothorax Psychiatric care Seasonal allergies Staphylococcal infection of skin Tobacco use Type 2 diabetes mellitus Surgical History H/O chest tube placement H/O neck surgery H/O wrist surgery R History of back surgery History of carpal tunnel surgery L Family History Family/Other No problems noted. Other Adopted Social History Smoking and tobacco status: current every day smoker cigarettes Packs smoked per day: 0.1 and smokeless tobacco Smokeless tobacco user: chewing tobacco and snuff Smokeless tobacco details: 1 can/ 2 days Quit status (tobacco): not considering quitting Second hand smoke exposure: Yes Smoking risk assessment/counseling performed?: No Alcohol intake: former Year of sobriety/quit date alcohol: 2021 Desire information about alcohol rehabilitation?: No Counseling given: No Desire information about substance/drug rehabilitation?: No Counseling given: No Lives independently: Yes Household members: spouse Marital status: Current occupational status: unemployed History of recent travel: No Current gender identity: Male Physical Exam Const: COMMON NORMALS: no acute distress, patient oriented x3 and healthy appearing HENMT: COMMON NORMALS: normocephalic and atraumatic HEAD & SCALP: normocephalic and atraumatic Eye: COMMON NORMALS: Equal, round and reactive pupils present and EOMs intact bilaterally PUPIL: Yes Equal, round and reactive pupils present Neck/C-Spine: COMMON NORMALS: full ROM and supple Chest: COMMONS NORMALS: normal inspection of the chest and normal palpation of entire chest wall Resp: COMMON NORMALS: normal respiratory effort, No retractions, No use of accessory muscles and clear to auscultation bilaterally AUSCULTATION: clear to auscultation bilaterally Cardio: COMMON NORMALS: regular rate, regular rhythm and No murmurs present (Cardio) RATE: regular rate RHYTHM: regular rhythm GI: COMMON NORMALS: Normal to inspection, nondistended, normoactive bowel sounds present, Soft to palpation, non-tender and no masses PALPATION: Yes Soft to palpation Extremity: COMMON NORMALS: normal to inspection and full ROM Neuro: COMMON NORMALS: patient oriented x3, moves all extremities and no focal motor deficits Psych: COMMON NORMALS: mental status grossly normal, Normal thought process present and cooperative THOUGHT PROCESS: Normal thought process present Skin: COMMON NORMALS: no rashes or lesions noted and no wounds GENERAL SKIN EXAM: no rashes or lesions noted Course Vital Signs: Vital signs: Vital Signs Temperature 98.3 F 11/28/22 19:35 Pulse Rate 66 11/28/22 19:35 Respiratory Rate 18 11/28/22 19:35 Blood Pressure 116/75 11/28/22 19:35 Pulse Oximetry 98 11/28/22 19:35 Oxygen Delivery Me thod 11/28/22 19:35 MDM - Abdominal Pain Medical Decision Making Patient presents for abdominal pain his blood work is normal ultrasound shows no signs of cholecystitis his pain is improved here we will get him follow-up with surgery he is to return if worsening he understands agrees to plan. Lab Data 11/28/22 19:35 11/28/22 19:35 Labs/Radiology: Radiology Impressions Gallbladder Ultrasound 11/28/22 21:05 IMPRESSION: 1. Small contracted gallbladder which can give the appearance of thickened gallbladder wall. 2. On series 1, image 6, the gallbladder wall appears normal measuring 2 mm in diameter however on other images the gallbladder wall measures 3 mm which is upper limits of normal. 3. Sonographically negative Hernández's sign suggesting no cholecystitis. Laboratory Results WBC 10.1 10^3/uL (4.0-10.0) H 11/28/22 19:35 RBC 5.36 10^6/uL (4.1-5.3) H 11/28/22 19:35 Hgb 12.4 g/dL (11.7-16.6) 11/28/22 19:35 Hct 42.6 % (42.0-52.0) 11/28/22 19:35 MCV 79.5 fl (80-94) L 11/28/22 19:35 MCH 23.1 pg (28.0-34.0) L 11/28/22 19:35 MCHC 29.1 g/dL (30.0-36.0) L 11/28/22 19:35 RDW 15.1 % (12.1-15.1) 11/28/22 19:35 Plt Count 261 10^3/cmm (130-400) 11/28/22 19:35 MPV 10.1 fL (7.4-10.4) 11/28/22 19:35 Neut % (Auto) 55.9 % 11/28/22 19:35 Lymph % (Auto) 30.1 % 11/28/22 19:35 [place] % (Auto) 9.3 % 11/28/22 19:35 Eos % (Auto) 3.9 % 11/28/22 19:35 Baso % (Auto) 0.6 % 11/28/22 19:35 Neut # (Auto) 5.66 10^3/uL (1.8-7.7) 11/28/22 19:35 Lymph # (Auto) 3.1 10^3/uL (0.8-4.8) 11/28/22 19:35 [place] # (Auto) 0.9 10^3/uL (0.2-0.9) 11/28/22 19:35 Eos # (Auto) 0.4 10^3/uL (0.0-0.8) 11/28/22 19:35 Baso # (Auto) 0.1 10^3/uL (0.0-0.1) 11/28/22 19:35 Nucleated RBC % (auto) 0 % 11/28/22 19:35 Nucleated RBCs # 0.0 /100WBC 11/28/22 19:35 Sodium 135 mmol/L (136-145) L 11/28/22 19:35 Potassium 4.6 mmol/L (3.5-5.1) 11/28/22 19:35 Chloride 99 mmol/L (98-107) 11/28/22 19:35 Carbon Dioxide 26 mmol/L (22-29) 11/28/22 19:35 Anion Gap 14.6 (5-19) 11/28/22 19:35 BUN 13 mg/dL (6-20) 11/28/22 19:35 Creatinine 1.5 mg/dL (0.7-1.2) H 11/28/22 19:35 GFR Calculation 50.4 mL/min (90-130) L 11/28/22 19:35 Glucose 156 mg/dL (65-115) H 11/28/22 19:35 Calculated Osmolality 283 mOsm/kg (285-295) L 11/28/22 19:35 Calcium 8.9 mg/dL (8.5-10.5) 11/28/22 19:35 Total Bilirubin 0.4 mg/dL (0.15-1.2) 11/28/22 19:35 AST 18 U/L (0-40) 11/28/22 19:35 ALT 13 U/L (0-41) 11/28/22 19:35 Alkaline Phosphatase 86 U/L (40-130) 11/28/22 19:35 Total Protein 7.4 g/dL (6.6-8.7) 11/28/22 19:35 Albumin 4.5 g/dL (3.5-5.2) 11/28/22 19:35 Globulin 2.9 g/dL (1.3-4.6) 11/28/22 19:35 Lipase 36 U/L (13-60) 11/28/22 19:35 Urine Color Yellow (Yellow) 11/28/22 21:02 Urine Appearance Clear (CLEAR) 11/28/22 21:02 Urine pH 5 (5-7) 11/28/22 21:02 Ur Specific [place] 1.010 (1.005-1.030) 11/28/22 21:02 Urine Protein Neg (Negative) 11/28/22 21:02 Urine Glucose (UA) 4+ (Normal) H 11/28/22 21:02 Urine Ketones Negative (Negative) 11/28/22 21:02 Urine Blood Neg (Negative) 11/28/22 21:02 Urine Nitrate Negative (Negative) 11/28/22 21:02 Urine Bilirubin Neg (Negative) 11/28/22 21:02 Urine Urobilinogen Norm mg/dL (Negative) 11/28/22 21:02 Ur Leukocyte Esterase Negative (Negative) 11/28/22 21:02 Discharge Plan Discharge Patient Disposition: Home Clinical Impression: Abdominal pain Condition: Stable Prescriptions: New hydrocodone-acetaminophen 5-325 mg tablet 1 tab PO Q6H PRN (Reason: pain) Qty: 14 0RF ondansetron 4 mg tablet,disintegrating 4 mg PO Q6H PRN (Reason: nausea and vomiting) Qty: 14 0RF No Action albuterol sulfate [ProAir HFA] 90 mcg/actuation HFA aerosol inhaler 1 - 2 puff INHALATION Q6H PRN (Reason: shortness of breath or wheezing) 30 Days Qty: 18 2RF diclofenac sodium [Voltaren Arthritis Pain] 1 % gel 2 g topical QID Qty: 100 3RF Rx Instructions: apply to feet for plantar fascitis clindamycin HCl 300 mg capsule 300 mg PO Q8H 10 Days Qty: 30 0RF mupirocin 2 % ointment 1 applic topical DAILY Qty: 22 2RF Men's Multivitamin 400-20-300 mcg tablet PO DAILY dicyclomine 10 mg capsule 10 mg PO BID PRN (Reason: abdominal discomfort) 30 Days Qty: 45 5RF bupropion HCl [Wellbutrin XL] 150 mg tablet extended release 24 hr 150 mg PO QAM Qty: 30 2RF buspirone 10 mg tablet 20 mg PO TID Qty: 180 2RF hydroxyzine HCl 50 mg tablet 50 mg PO QID PRN (Reason: anxiety) Qty: 120 2RF quetiapine [Seroquel] 100 mg tablet 100 mg PO .HS Qty: 30 2RF vilazodone [Viibryd] 40 mg tablet 40 mg PO QAM Qty: 30 2RF Proctofoam HC 1-1 % foam 1 applic MS QID 30 Days Qty: 10 0RF docusate sodium [Colace] 100 mg capsule 100 mg PO DAILY 30 Days Qty: 60 2RF Farxiga 10 mg tablet See Rx Instructions .ROUTE .COMPLEX Qty: 90 0RF Dose Instruction: TAKE 1 TABLET BY MOUTH ONCE DAILY IN THE MORNING Rx Instructions: TAKE 1 TABLET BY MOUTH ONCE DAILY IN THE MORNING (DME) Accu-Chek Britany Plus test strp Strip See Rx Instructions .Route Qty: 100 1RF Rx Instructions: As directed (DME) lancets [Accu-Chek Softclix Lancets] Misc See Rx Instructions .Route Qty: 100 0RF Rx Instructions: As directed (DME) blood-glucose meter [Accu-Chek Guide Glucose Meter] Misc See Rx Instructions .Route Qty: 1 0RF Rx Instructions: As directed Nurtec ODT 75 mg tablet,disintegrating 75 mg PO .Every other day 30 Days Qty: 15 0RF Rx Instructions: failed imitrex, rizatriptan, topamax, amitriptyline (DME) blood-glucose meter [Accu-Chek Britany Plus Meter] Misc See Rx Instructions .Route Qty: 1 0RF Rx Instructions: daily (DME) Accu-Chek Guide test strips Strip See Rx Instructions .Route Qty: 100 0RF Rx Instructions: test once daily Ubrelvy 100 mg tablet See Rx Instructions .ROUTE .COMPLEX Qty: 10 0RF Dose Instruction: TAKE ONE TABLET BY MOUTH ONCE DIRECTED Rx Instructions: TAKE ONE TABLET BY MOUTH ONCE DIRECTED venlafaxine 150 mg capsule,extended release 24hr 150 mg PO DAILY Qty: 30 1RF cephalexin 500 mg capsule 500 mg PO BID 7 Days Qty: 14 0RF atorvastatin 20 mg tablet 20 mg PO DAILY 100 Days Qty: 100 0RF Rx Instructions: per insurance had to do 100 day supply Lantus Solostar U-100 Insulin 100 unit/mL (3 mL) insulin pen See Rx Instructions .ROUTE .COMPLEX Qty: 15 0RF Dose Instruction: INJECT 10 UNITS SUBCUTANEOUSLY ONCE DAILY Rx Instructions: INJECT 10 UNITS SUBCUTANEOUSLY ONCE DAILY pantoprazole 40 mg tablet,delayed release (DR/EC) 40 mg PO DAILY Qty: 90 0RF metformin 500 mg tablet extended release 24 hr See Rx Instructions .ROUTE .COMPLEX Qty: 90 0RF Dose Instruction: TAKE 1 TABLET BY MOUTH IN THE MORNING Rx Instructions: TAKE 1 TABLET BY MOUTH IN THE MORNING metoprolol succinate 50 mg tablet extended release 24 hr See Rx Instructions .ROUTE .COMPLEX Qty: 90 0RF Dose Instruction: Take 1 tablet by mouth once daily Rx Instructions: Take 1 tablet by mouth once daily mupirocin 2 % ointment See Rx Instructions .ROUTE .COMPLEX Qty: 22 0RF Dose Instruction: APPLY 1 APPLICATION TOPICALLY TWICE DAILY Rx Instructions: APPLY 1 APPLICATION TOPICALLY TWICE DAILY tizanidine 4 mg tablet See Rx Instructions .ROUTE .COMPLEX Qty: 30 0RF Dose Instruction: TAKE 1 TABLET BY MOUTH ONCE DAILY NEEDED FOR MUSCLE SPASTICITY Rx Instructions: TAKE 1 TABLET BY MOUTH ONCE DAILY NEEDED FOR MUSCLE SPASTICITY Benadryl 25 mg capsule 25 mg PO TID PRN (Reason: headache) Qty: 10 0RF Compazine 10 mg tablet 10 mg PO BID PRN (Reason: headache) Qty: 6 0RF Paxlovid (EUA) 150 mg x 2- 100 mg tablet See Rx Instructions .ROUTE .COMPLEX Qty: 30 0RF Rx Instructions: take TWO 150 mg tablets of nirmatrelvir with ONE 100 mg tablet of ritonavir twice daily for 5 days Discharge Orders: Discharge ED (Routine); Ordered 11/28/22 Ordered By: Timothy Bello Referrals: Jeremiah Pate DO [Physician] - 1-3 days Ofe Paula FNP [Primary Care Provider] - Discharge Diet: Advance as tolerated Discharge Activity: Resume usual activity Patient Instructions: Abdominal Pain (ED), Opioid Safety Coding Level of Care Code ED Exhaust Emissions Inspector for Marcos Scott
[2022-11-28] MEDS: sodium chloride 0.9% 1,000 ML 999 ML IV (19:54)
[2022-11-28] MEDS: ondansetron 2 mg/ML SDV 2 mL 4 MG IVP (19:54)
[2022-11-28] MEDS: morphine 4 mg/mL SDV 1 mL IVP (19:54)
[2022-11-28 19:56] LABS: Basophils # 0.1 10^3/uL (0.0-0.1); Basophils % 0.6 %; Eosinophils # 0.4 10^3/uL (0.0-0.8); Eosinophils % 3.9 %; Hematocrit 42.6 % (42.0-52.0); Hemoglobin 12.4 g/dL (11.7-16.6); Lymphocytes # 3.1 10^3/uL (0.8-4.8); Lymphocytes % 30.1 %; Mean Corpuscular HGB Conc 29.1 g/dL (30.0-36.0); Mean Corpuscular Hemoglobin 23.1 pg (28.0-34.0); Mean Corpuscular Volume 79.5 fl (80-94); Mean Platelet Volume 10.1 fL (7.4-10.4); Monocytes # 0.9 10^3/uL (0.2-0.9); Monocytes % 9.3 %; Neutrophils # 5.66 10^3/uL (1.8-7.7); Neutrophils % 55.9 %; Nucleated Red Blood Cells % 0 %; Platelet Count 261 10^3/cmm (130-400); Red Blood Count 5.36 10^6/uL (4.1-5.3); Red Cell Distribution Width 15.1 % (12.1-15.1); White Blood Count 10.1 10^3/uL (4.0-10.0)
[2022-11-28 20:07] LABS: Alanine Aminotransferase 13 U/L (0-41); Albumin Level 4.5 g/dL (3.5-5.2); Alkaline Phosphatase 86 U/L (40-130); Anion Gap 14.6 (5-19); Aspartate Amino Transferase 18 U/L (0-40); Blood Urea Nitrogen 13 mg/dL (6-20); Calcium 8.9 mg/dL (8.5-10.5); Carbon Dioxide 26 mmol/L (22-29); Chloride 99 mmol/L (98-107); Globulin 2.9 g/dL (1.3-4.6); Glomerular Filtration Rate 50.4 mL/min (90-130); Glucose 156 mg/dL (65-115); Lipase 36 U/L (13-60); Osmolality Calculated 283 mOsm/kg (285-295); Potassium 4.6 mmol/L (3.5-5.1); Sodium 135 mmol/L (136-145); Total Bilirubin 0.4 mg/dL (0.15-1.2); Total Protein 7.4 g/dL (6.6-8.7)
--- NOTE | 2022-11-28 21:05 | USR_ITS ---
PROCEDURE INFORMATION: Exam: US Abdomen, Limited; Right Upper Quadrant Exam date and time: 11/28/2022 9:24 PM Age: 47 years old Clinical indication: Abdominal pain; Prior surgery; Surgery date: 3-7 days post-operative; Surgery type: Colonoscopy S/P cancerous polyp excision; Patient HX: Generalized abd pain x 2 days; Additional info: Ruq pain TECHNIQUE: Imaging protocol: Real time ultrasound of the abdomen with image documentation. Limited exam focused on the right upper quadrant. COMPARISON: US gall bladder [id number] 05/12/2020 6:12 PM FINDINGS: Liver: 15.9 cm liver. Gallbladder: Small contracted gallbladder which can give the appearance of thickened gallbladder wall. On series 1, image 6, the gallbladder wall appears normal measuring 2 mm in diameter however on other images the gallbladder wall measures 3 mm which is upper limits of normal. Sonographically negative Hernández's sign suggesting no cholecystitis. Biliary ducts: 3.7 mm common bile duct which is normal. Pancreas: Pancreas obscured by bowel gas. Right kidney: 1.2 cm right renal cortex. 9.4 x 5.2 x 4.8 cm right kidney. Aorta: 2.5 cm maximum abdominal aortic diameter. Inferior vena cava: Normal 9 mm IVC. Portal venous: Hepatopetal portal vein flow. US/US gall bladder [id number] IMPRESSION: 1. Small contracted gallbladder which can give the appearance of thickened gallbladder wall. 2. On series 1, image 6, the gallbladder wall appears normal measuring 2 mm in diameter however on other images the gallbladder wall measures 3 mm which is upper limits of normal. 3. Sonographically negative Hernández's sign suggesting no cholecystitis.
[2022-11-28 21:08] LABS: Add Urine Microscopic? NO; Charge for UA Resulting for Rev
[2022-11-28 21:14] LABS: Bilirubin Urine Neg (Negative); Blood Urine Neg (Negative); Glucose Urine UA 4+ (Normal); Ketones Urine Negative (Negative); Leukocyte Esterase Urine Negative (Negative); Nitrate Urine Negative (Negative); Protein Urine Neg (Negative); Urine Appearance Clear (CLEAR); Urine Color Yellow (Yellow); Urobilinogen Urine Norm (Negative); pH Urine 5 (5-7)
[2022-11-28 22:34] VITALS: BP 105/68; PULSE 72; RESP 18; O2SAT 97
--- NOTE | 2022-11-29 11:07 | DCPLANNER ---
Addendum entered by Wendy Oscar 11/30/22 15:11: perianesthesia manager called [facility] General Surgery to confirm that clinic had received patients information. perianesthesia manager was told that clinic had received patients information it will be reviewed. Clinic will call patient with appointment information. Addendum entered by Wendy Oscar 11/30/22 13:25: perianesthesia manager received the following message from the general surgery clinic regarding follow up appointment: Please refer elsewhere due to patient having [facility] egg caser called and spoke with patients , informing her that Dr. Pate is not in network with [facility]. perianesthesia manager asked patients where patient would like the referral to be sent. Patient stated that he would like the referral be sent to [facility] in [place]. perianesthesia manager faxed patients information to [facility] General surgery. Patients information will be printed and reviewed. Clinic will call patient with appointment information. Original Note: perianesthesia manager had message to schedule a follow up appointment for patient with general surgery. perianesthesia manager sent patients information to the front office staff at general surgery. Patients information will be printed and reviewed. Clinic will call patient with appointment information.
== END 2022-11-28 22:34 | disposition home or self-care (01) ==
PROVIDERS: Emergency Provider Emergency Medicine; PCP Registered Nurse
DX: R10.11 Right upper quadrant pain (principal); Z79.84 Long term (current) use of oral hypoglycemic drugs; Z79.4 Long term (current) use of insulin; F17.210 Nicotine dependence, cigarettes, uncomplicated; E78.5 Hyperlipidemia, unspecified; I10 Essential (primary) hypertension; E11.9 Type 2 diabetes mellitus without complications
CPT/HCPCS: 76705; 80053; 81003; 83690; 85025; 96361; 96374; 96375; 99285; J2270; J2405; J7030

== ENCOUNTER 2023-01-03 08:06 | Outpatient (CLI) | payer MEDICARE, MEDICAID, SELFPAY ==
--- NOTE | 2023-01-03 08:15 | FL_ITS ---
WS: [id number] FL barium swallow [id number] REASON FOR EXAM: DYSPHAGIA,OROPHARYNGEAL PHASE FLUOROSCOPY TIME: 1min [id number] # OF SPOT FILMS: 11 FINDINGS: The swallowing of barium was performed with the patient in the upright AP and lateral projections and in the supine TARIQ projection. The esophagus was evaluated from the oropharynx to the fundus of the stomach. Multiple rapid sequence spot films were obtained. Fluoroscopically and on the spot films there is noted to be a persistent large cricopharyngeal defect in the posterior wall of the origin of the esophagus narrowing the lumen to 4 to 5 mm anterior to po sterior. The thoracic esophagus consistently demonstrated a loss of primary peristalsis and degeneration into tertiary contractions with retrograde reflux of the barium. There is a small hiatal hernia. There was a persistent narrowing at the gastroesophageal junction see n at fluoroscopy. This abnormality was difficult to capture on the spot films to determine the severi ty of the narrowing. As best as can be ascertained the maximum diameter of the narrowing was 5 mm. 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 Significant narrowing/stricture of the gastroesophageal junction at the superio r margin of a small hiatal hernia as above.
== END 2023-01-03 08:07 | disposition home or self-care (01) ==
LOC: RAD 08:12
PROVIDERS: PCP Registered Nurse; Visit Provider Otolaryngology
DX: R13.12 Dysphagia, oropharyngeal phase (principal)
CPT/HCPCS: 74220

== ENCOUNTER 2023-01-12 08:14 | Outpatient (CLI) | payer MEDICARE, MEDICAID, SELFPAY ==
--- NOTE | 2023-01-12 08:25 | FL_ITS ---
WS: [id number] EXAMINATION: FL barium swallow modifd [id number] REASON FOR EXAM: Oropharyngeal dysphagia ORDER DATE: 01/12/2023 8:25 AM FLUOROSCOPY TIME: 1min [id number] # OF SPOT FILMS: 1 TECHNIQUE: The oral cavity and upper pharyngeal and laryngeal region were observed in the lateral pro jection with fluoroscopy during swallowing. Different consistencies of liquid and food were mixed with barium and administered by the speech path ologist during fluoroscopy. FINDINGS: The oral stage was unremarkable with satisfactory initiation of the swallowing reflex. Mov ement of contrast coated material through the pharynx into the upper esophagus was observed. There wa s no evidence of penetration or aspiration. Please refer to speech pathologist report for specific de tails regarding swallowing function. There was no significant residual. FL/FL barium swallow modifd [id number] IMPRESSION: PLEASE REFER TO THE SPEECH PATHOLOGIST REPORT FOR ADDITIONAL DETAILS REGARDING THIS MODIFIED BARIUM SWALLOW STUDY.
== END 2023-01-12 08:15 | disposition home or self-care (01) ==
PROVIDERS: PCP Registered Nurse; Visit Provider Otolaryngology
DX: R13.12 Dysphagia, oropharyngeal phase (principal)
CPT/HCPCS: 74230; 92611

== ENCOUNTER 2023-03-12 19:45 | Emergency (ER) | payer MEDICARE, MEDICAID, SELFPAY ==
[2023-03-12 19:53] VITALS: BP 121/81; PULSE 84; RESP 16; TEMP 36.4; O2SAT 98
[2023-03-12] MEDS: fentaNYL 50 mcg/mL INJ 2mL 75 MCG IVP (20:49)
[2023-03-12] MEDS: ketorolac 30 mg/mL INJ 15 MG IVP (20:50)
[2023-03-12] MEDS: metoclopramide 5 mg/mL SDV 2 mL 10 MG IVP (20:51)
--- NOTE | 2023-03-12 21:11 | ED_ITS ---
HPI - Headache General: Chief Complaint: Headache Stated Complaint: migraine Time Seen by Provider: 03/12/23 20:27 History of Present Illness: 47-year-old male with long history of migraine headache. He presents with a migraine since around 7 PM. It started suddenly. Situated first over his right eye, and then across his forehead. It is throbbing. He is nauseated. He has not thrown up. No fever. No trauma. It is not dissimilar to previous headaches. He took a topiramate at home with no improvement. MD elicited complaint: headache Onset (ago): minute(s) Onset description: suddenly Location: right, frontal and retro-orbital Quality & Timing: aching and throbbing Exacerbating factors: movement of head/neck, light and noise Relieving factors: nothing Associated symptoms: Reports nausea and photophobia; Deny chest pain, confusion, cough, diaphoresis, eye pain, eye redness, fever(s), loss of vision, neck stiffness, short of breath or vomiting Treatments prior to arrival: other Review of Systems Const: Denies: fever(s) or diaphoresis Eyes: Denies: change in vision ENMT: Denies: throat pain Card: Denies: chest pain Resp: Denies: dyspnea GI: Reports: nausea; Denies: vomiting Musc: Reports: neck pain Neuro: Denies: confusion PFSH ED PFSH: Medical History ADD (attention deficit disorder) Angina decubitus Asthma Carpal tunnel syndrome Chest pain Chronic pain syndrome GERD (gastroesophageal reflux disease) Hematuria History of hepatitis Hyperlipidemia Hypertension Irritable bowel syndrome Peptic ulcer disease Pneumothorax Psychiatric care Seasonal allergies Staphylococcal infection of skin Tobacco use Type 2 diabetes mellitus Surgical History H/O chest tube placement H/O neck surgery H/O wrist surgery R History of back surgery History of carpal tunnel surgery L Family History Family/Other No problems noted. Other Adopted Social History Smoking and tobacco status: current every day smoker cigarettes Packs smoked per day: 0.1 and smokeless tobacco Smokeless tobacco user: chewing tobacco and snuff Smokeless tobacco details: 1 can/ 2 days Quit status (tobacco): not considering quitting Second hand smoke exposure: Yes Smoking risk assessment/counseling performed?: No Alcohol intake: former Year of sobriety/quit date alcohol: 2021 Desire information about alcohol rehabilitation?: No Counseling given: No Substance/Drug Use: former Date of last use: Former occasional marijuana. Currently occ CBD oil. Desire information about substance/drug rehabilitation?: No Counseling given: No Lives independently: Yes Household members: spouse Marital status: Current occupational status: unemployed Do you think of yourself as: Straight/Heterosexual Current gender identity: Male Physical Exam Const: COMMON NORMALS: no acute distress and alert GENERAL APPEARANCE: cooperative; not ill appearing and not frail appearing HENMT: COMMON NORMALS: normocephalic, atraumatic and Normal external nose present HEAD & SCALP: normocephalic and atraumatic FACE & SINUS: normal facial exam and face symmetric NOSE: Normal external nose present Eye: COMMON NORMALS: Equal, round and reactive pupils present and EOMs intact bilaterally PUPIL: Yes Equal, round and reactive pupils present DIRECT OPHTHALMOSCOPY: Yes photophobia Neck/C-Spine: GENERAL: Yes trachea midline Chest: CHEST: Yes Symmetrical chest wall rise Resp: COMMON NORMALS: normal respiratory effort, No retractions, No use of accessory muscles and clear to auscultation bilaterally AUSCULTATION: clear to auscultation bilaterally Cardio: COMMON NORMALS: regular rate and regular rhythm RATE: regular rate RHYTHM: regular rhythm GI: COMMON NORMALS: Normal to inspection, nondistended, normoactive bowel sounds present Extremity: COMMON NORMALS: no pedal edema Neuro: MERLIN COMA SCALE: document GCS findings Merlin coma scale eye opening: Spontaneous [place] coma scale verbal response: Orientated Merlin coma scale motor response: Obey commands [place] coma scale total score: 15 SENSORIUM/ORIENTATION: Yes alert CRANIAL NERVES: Yes CN normal except as noted COORDINATION/BALANCE: [id number] test normal and [id number]-rv-[id number] test normal SPEECH: speech normal SENSORY EXAM: Yes extremities (intact) MOTOR EXAM: 5/5 motor strength present throughout COORDINATION: [id number]-[id number] test normal and ktom-ld-[id number] test normal Psych: COMMON NORMALS: speech normal SPEECH: Yes normal speech Skin: COMMON NORMALS: no rashes or lesions noted GENERAL SKIN EXAM: no rashes or lesions noted Course Vital Signs: Vital signs: Vital Signs Temperature 97.5 F L 03/12/23 21:29 Pulse Rate 76 03/12/23 21:29 Respiratory Rate 16 03/12/23 21:29 Blood Pressure 107/88 03/12/23 21:29 Pulse Oximetry 99 03/12/23 21:29 Oxygen Delivery Me thod Room Air 03/12/23 19:53 MDM - Headache Medical Decision Making 47-year-old male with a cluster like migraine headache. He was given 3 L nasal cannula O2, Reglan, Toradol, and a small dose of fentanyl with near resolution of his headache. He is no longer photophobic. No neurological symptoms otherwise. He he says he is ready to go home. Discharge Plan Discharge Patient Disposition: Home Clinical Impression: Migraine Condition: Stable Prescriptions: No Action albuterol sulfate [ProAir HFA] 90 mcg/actuation HFA aerosol inhaler 1 - 2 puff INHALATION Q6H PRN (Reason: shortness of breath or wheezing) 30 Days Qty: 18 2RF diclofenac sodium [Voltaren Arthritis Pain] 1 % gel 2 g topical QID Qty: 100 3RF Rx Instructions: apply to feet for plantar fascitis clomipramine 50 mg capsule 50 mg PO .HS Qty: 30 0RF Rx Instructions: Take 50 mg for 1 month then increase to 100 mg. clomipramine 50 mg capsule 100 mg PO .HS Qty: 60 1RF Rx Instructions: Start after 1 month on 50 mg. bupropion HCl [Wellbutrin XL] 150 mg tablet extended release 24 hr 150 mg PO QAM Qty: 30 2RF buspirone 10 mg tablet 20 mg PO TID Qty: 180 2RF hydroxyzine HCl 50 mg tablet 50 mg PO QID PRN (Reason: anxiety) Qty: 120 2RF quetiapine [Seroquel] 100 mg tablet 100 mg PO .HS Qty: 30 2RF vilazodone [Viibryd] 40 mg tablet 40 mg PO QAM Qty: 30 2RF Men's Multivitamin 400-20-300 mcg tablet PO DAILY docusate sodium [Colace] 100 mg capsule 100 mg PO DAILY 30 Days Qty: 60 2RF (DME) Accu-Chek Britany Plus test strp Strip See Rx Instructions .Route Qty: 100 1RF Rx Instructions: As directed (DME) lancets [Accu-Chek Softclix Lancets] [facility] [place] See Rx Instructions .Route Qty: 100 0RF Rx Instructions: As directed (DME) blood-glucose meter [Accu-Chek Guide Glucose Meter] [facility] [place] See Rx Instructions .Route Qty: 1 0RF Rx Instructions: As directed Nurtec ODT 75 mg tablet,disintegrating 75 mg PO .Every other day 30 Days Qty: 15 0RF Rx Instructions: failed imitrex, rizatriptan, topamax, amitriptyline (DME) blood-glucose meter [Accu-Chek Britany Plus Meter] [facility] [place] See Rx Instructions .Route Qty: 1 0RF Rx Instructions: daily (DME) Accu-Chek Guide test strips Strip See Rx Instructions .Route Qty: 100 0RF Rx Instructions: test once daily Ubrelvy 100 mg tablet See Rx Instructions .ROUTE .COMPLEX Qty: 10 0RF Dose Instruction: TAKE ONE TABLET BY MOUTH ONCE DIRECTED Rx Instructions: TAKE ONE TABLET BY MOUTH ONCE DIRECTED atorvastatin 20 mg tablet 20 mg PO DAILY 100 Days Qty: 100 0RF Rx Instructions: per insurance had to do 100 day supply Lantus Solostar U-100 Insulin 100 unit/mL (3 mL) insulin pen See Rx Instructions .ROUTE .COMPLEX Qty: 15 0RF Dose Instruction: INJECT 10 UNITS SUBCUTANEOUSLY ONCE DAILY Rx Instructions: INJECT 10 UNITS SUBCUTANEOUSLY ONCE DAILY Farxiga 10 mg tablet See Rx Instructions .ROUTE .COMPLEX Qty: 90 0RF Dose Instruction: TAKE 1 TABLET BY MOUTH ONCE DAILY IN THE MORNING Rx Instructions: TAKE 1 TABLET BY MOUTH ONCE DAILY IN THE MORNING metoprolol succinate 50 mg tablet extended release 24 hr See Rx Instructions .ROUTE .COMPLEX Qty: 90 0RF Dose Instruction: Take 1 tablet by mouth once daily Rx Instructions: Take 1 tablet by mouth once daily dicyclomine 20 mg tablet See Rx Instructions .ROUTE .COMPLEX Qty: 25 0RF Dose Instruction: TAKE 1/2 (ONE-HALF) TABLET BY MOUTH TWICE DAILY NEEDED FOR ABDOMINAL DISCOMFORT Rx Instructions: TAKE 1/2 (ONE-HALF) TABLET BY MOUTH TWICE DAILY NEEDED FOR ABDOMINAL DISCOMFORT metformin 500 mg tablet extended release 24 hr See Rx Instructions .ROUTE .COMPLEX Qty: 90 0RF Dose Instruction: TAKE 1 TABLET BY MOUTH IN THE MORNING Rx Instructions: TAKE 1 TABLET BY MOUTH IN THE MORNING tizanidine 4 mg tablet See Rx Instructions .ROUTE .COMPLEX Qty: 30 0RF Dose Instruction: TAKE 1 TABLET BY MOUTH ONCE DAILY NEEDED FOR MUSCLE SPASTICITY Rx Instructions: TAKE 1 TABLET BY MOUTH ONCE DAILY NEEDED FOR MUSCLE SPASTICITY dexlansoprazole [Dexilant] 30 mg capsule,biphase delayed releas 60 mg PO DAILY Qty: 60 0RF Rx Instructions: take up to 60mg daily Benadryl 25 mg capsule 25 mg PO TID PRN (Reason: headache) Qty: 10 0RF ondansetron 4 mg tablet,disintegrating 4 mg PO Q6H PRN (Reason: nausea and vomiting) Qty: 14 0RF Discharge Orders: Discharge ED (Routine); Ordered 03/12/23 Ordered By: Jose Harrell Referrals: Ofe Paula FNP [Primary Care Provider] - Patient Instructions: Migraine Headache (ED), Pain Management Activity Restrictions/Additional Instructions: Return for worsening symptoms, vomiting, weakness, speech or language or vision problems, any other concerning symptoms. Coding Level of Care Code ED Line Walker for Marcos Scott
[2023-03-12 21:18] VITALS: BP 107/88; PULSE 76; RESP 16; O2SAT 99
[2023-03-12 21:29] VITALS: BP 107/88; PULSE 76; RESP 16; TEMP 36.4; O2SAT 99
== END 2023-03-12 21:30 | disposition home or self-care (01) ==
PROVIDERS: Emergency Provider Emergency Medicine; PCP Registered Nurse
DX: G43.909 Migraine, unspecified, not intractable, without status migrainosus (principal); Z79.4 Long term (current) use of insulin; Z79.84 Long term (current) use of oral hypoglycemic drugs; F17.210 Nicotine dependence, cigarettes, uncomplicated; F17.220 Nicotine dependence, chewing tobacco, uncomplicated; E78.5 Hyperlipidemia, unspecified; I10 Essential (primary) hypertension; E11.9 Type 2 diabetes mellitus without complications
CPT/HCPCS: 96374; 96375; 99284; J1885; J2765; J3010

== ENCOUNTER 2023-03-30 19:51 | Emergency (ER) | payer MEDICARE, MEDICAID, SELFPAY ==
[2023-03-30 19:54] VITALS: BP 120/71; PULSE 97; RESP 15; TEMP 36.8; O2SAT 98
--- NOTE | 2023-03-30 20:05 | W.ED.EXTPRO ---
HPI - Extremity Problem General: Chief complaint: Extremity Problem,Nontraumatic Stated complaint: pain to bilateral hips and back pain Time Seen by Provider: 03/30/23 20:04 History of Present Illness: 47-year-old male patient comes in today for complaints of cramps in bilateral hips and thighs. Patient has a history of chronic kidney disease, diabetes mellitus type 2, and psychiatric disorder. Patient reports the symptoms for last 2 to 3 days. Patient also complains of significant dry mouth syndrome. Associated symptoms: Deny fever(s) or rash Review of Systems Const: Denies: fever(s) ENMT: Reports: dry mouth Musc: Reports: back pain and extremity pain Skin/Breast: Denies: rash PFSH ED PFSH: Medical History ADD (attention deficit disorder) Angina decubitus Asthma Carpal tunnel syndrome Chest pain Chronic pain syndrome GERD (gastroesophageal reflux disease) Hematuria History of hepatitis Hyperlipidemia Hypertension Irritable bowel syndrome Peptic ulcer disease Pneumothorax Psychiatric care Seasonal allergies Staphylococcal infection of skin Tobacco use Type 2 diabetes mellitus Surgical History H/O chest tube placement H/O neck surgery H/O wrist surgery R History of back surgery History of carpal tunnel surgery L Family History Family/Other No problems noted. Other Adopted Social History Smoking and tobacco status: current every day smoker cigarettes Packs smoked per day: 0.1 and smokeless tobacco Smokeless tobacco user: chewing tobacco and snuff Smokeless tobacco details: 1 can/ 2 days Quit status (tobacco): not considering quitting Second hand smoke exposure: Yes Smoking risk assessment/counseling performed?: No Alcohol intake: former Year of sobriety/quit date alcohol: 2021 Desire information about alcohol rehabilitation?: No Counseling given: No Substance/Drug Use: former Date of last use: Former occasional marijuana. Currently occ CBD oil. Desire information about substance/drug rehabilitation?: No Counseling given: No Lives independently: Yes Household members: spouse Marital status: Current occupational status: unemployed Do you think of yourself as: Straight/Heterosexual Current gender identity: Male Physical Exam Const: COMMON NORMALS: alert HENMT: COMMON NORMALS: normocephalic HEAD & SCALP: normocephalic MOUTH: other (Dry mouth, crusting to the angles of the mouth) Neck/C-Spine: COMMON NORMALS: full ROM Resp: COMMON NORMALS: normal respiratory effort and clear to auscultation bilaterally AUSCULTATION: clear to auscultation bilaterally Cardio: COMMON NORMALS: regular rate and regular rhythm RATE: regular rate RHYTHM: regular rhythm Extremity: COMMON NORMALS: full ROM Neuro: SENSORIUM/ORIENTATION: Yes alert Skin: COMMON NORMALS: turgor normal GENERAL SKIN EXAM: turgor normal Course Vital Signs: Vital signs: Vital Signs Temperature 98.2 F 03/30/23 19:54 Pulse Rate 97 03/30/23 19:54 Respiratory Rate 15 03/30/23 19:54 Blood Pressure 120/71 03/30/23 19:54 Pulse Oximetry 98 03/30/23 19:54 Oxygen Delivery Me thod Room Air 03/30/23 19:54 MDM - Extremity (Nontraumatic) Medical Decision Making 47-year-old male patient comes in today with complaints of bilateral hips and thigh discomfort. Patient reports muscle spasms. Patient also complains of dry mouth. On exam patient has some significant dryness to the mouth with some crusting lesions on the corners of the mouth. Patient has some decreased range of motion of the lumbar spine most likely due to prior fusion. No significant spinal tenderness is noted on palpation. Bilateral lower extremities are normal. Skin is warm and dry. Differential diagnosis includes but not limited to electrolyte disturbance, dehydration, xerostomia due to medications, candidiasis. CBC and CMP were okay without any signs of significant electrolyte disturbance. Patient does have chronic kidney disease noted by creatinine 1.9. Believe patient's pain is probably secondary to his chronic back issues. Patient was given hydrocodone 6 tablets for severe pain. Otherwise recommend usual medications for pain. Patient courage to drink plenty of fluids and less restricted by physician. Patient also be covered for candidiasis of the oral mucosa due to the angular cheilitis and treat with nystatin. Patient was also given instructions on Biotene mouthwash. Patient reported understanding of care plan and need for follow-up or return to the ER. Lab Data 03/30/23 20:27 03/30/23 20:27 Laboratory Results WBC 11.2 10^3/uL (4.0-10.0) H 03/30/23 20: RBC 5.15 10^6/uL (4.1-5.3) 03/30/23 20: Hgb 12.1 g/dL (11.7-16.6) 03/30/23: Hct 39.9 % (42.0-52.0) L 03/30/23 20: MCV 77.5 fl (80-94) L 03/30/23 20: MCH 23.5 pg (28.0-34.0) L 03/30/23: MCHC 30.3 g/dL (30.0-36.0) 03/30/23: RDW 17.6 % (12.1-15.1) H 03/30/23 20: Plt Count 294 10^3/cmm (130-400) 03/30/23: MPV 10.0 fL (7.4-10.4) 03/30/23: Neut % (Auto) 67.8 % 03/30/23: Lymph % (Auto) 21.7 % 03/30/23: [place] % (Auto) 9.2 % 03/30/23: Eos % (Auto) 0.5 % 03/30/23: Baso % (Auto) 0.4 % 03/30/23: Neut # (Auto) 7.61 10^3/uL (1.8-7.7) 03/30/23: Lymph # (Auto) 2.4 10^3/uL (0.8-4.8) 03/30/23: [place] # (Auto) 1.0 10^3/uL (0.2-0.9) H 03/30/23: Eos # (Auto) 0.1 10^3/uL (0.0-0.8) 03/30/23: Baso # (Auto) 0.0 10^3/uL (0.0-0.1) 03/30/23: Nucleated RBC % (auto) 0 % 03/30/23: Nucleated RBCs # 0.0 /100WBC 03/30/23 20:27 Sodium 141 mmol/L (136-145) 03/30/23 20:27 Potassium 4.3 mmol/L (3.5-5.1) 03/30/23 20:27 Chloride 104 mmol/L (98-107) 03/30/23 20:27 Carbon Dioxide 25 mmol/L (22-29) 03/30/23 20:27 Anion Gap 16.3 (5-19) 03/30/23 20:27 BUN 23 mg/dL (6-20) H 03/30/23 20:27 Creatinine 1.9 mg/dL (0.7-1.2) H 03/30/23 20:27 GFR Calculation 38.4 mL/min (90-130) L 03/30/23 20:27 Glucose 142 mg/dL (65-115) H 03/30/23 20:27 Calculated Osmolality 298 mOsm/kg (285-295) H 03/30/23 20:27 Calcium 9.8 mg/dL (8.5-10.5) 03/30/23 20:27 Discharge Plan Discharge Patient Disposition: Home Clinical Impression: Back pain with radiculopathy Condition: Stable Prescriptions: New Biotene Dry Mouth Oral Rinse Mouthwash 15 ml mucous membrane QID PRN (Reason: dry mouth) Qty: 1000 0RF Rx Instructions: swish for 15-30 secs , then spit out; do not swallow hydrocodone-acetaminophen 5-325 mg tablet 1 tab PO Q8H PRN (Reason: pain (scale score 7-10)) Qty: 6 0RF nystatin 100,000 unit/mL suspension 4 ml PO QID 7 Days Qty: 112 0RF Rx Instructions: swish and spit No Action albuterol sulfate [ProAir HFA] 90 mcg/actuation HFA aerosol inhaler 1 - 2 puff INHALATION Q6H PRN (Reason: shortness of breath or wheezing) 30 Days Qty: 18 2RF diclofenac sodium [Voltaren Arthritis Pain] 1 % gel 2 g topical QID Qty: 100 3RF Rx Instructions: apply to feet for plantar fascitis clomipramine 50 mg capsule 50 mg PO .HS Qty: 30 0RF Rx Instructions: Take 50 mg for 1 month then increase to 100 mg. clomipramine 50 mg capsule 100 mg PO .HS Qty: 60 1RF Rx Instructions: Start after 1 month on 50 mg. bupropion HCl [Wellbutrin XL] 150 mg tablet extended release 24 hr 150 mg PO QAM Qty: 30 2RF buspirone 10 mg tablet 20 mg PO TID Qty: 180 2RF hydroxyzine HCl 50 mg tablet 50 mg PO QID PRN (Reason: anxiety) Qty: 120 2RF quetiapine [Seroquel] 100 mg tablet 100 mg PO .HS Qty: 30 2RF vilazodone [Viibryd] 40 mg tablet 40 mg PO QAM Qty: 30 2RF Men's Multivitamin 400-20-300 mcg tablet PO DAILY docusate sodium [Colace] 100 mg capsule 100 mg PO DAILY 30 Days Qty: 60 2RF (DME) Accu-Chek Britany Plus test strp Strip See Rx Instructions .Route Qty: 100 1RF Rx Instructions: As directed (DME) lancets [Accu-Chek Softclix Lancets] Misc See Rx Instructions .Route Qty: 100 0RF Rx Instructions: As directed (DME) blood-glucose meter [Accu-Chek Guide Glucose Meter] Misc See Rx Instructions .Route Qty: 1 0RF Rx Instructions: As directed Nurtec ODT 75 mg tablet,disintegrating 75 mg PO .Every other day 30 Days Qty: 15 0RF Rx Instructions: failed imitrex, rizatriptan, topamax, amitriptyline (DME) blood-glucose meter [Accu-Chek Britany Plus Meter] Misc See Rx Instructions .Route Qty: 1 0RF Rx Instructions: daily (DME) Accu-Chek Guide test strips Strip See Rx Instructions .Route Qty: 100 0RF Rx Instructions: test once daily Ubrelvy 100 mg tablet See Rx Instructions .ROUTE .COMPLEX Qty: 10 0RF Dose Instruction: TAKE ONE TABLET BY MOUTH ONCE DIRECTED Rx Instructions: TAKE ONE TABLET BY MOUTH ONCE DIRECTED atorvastatin 20 mg tablet 20 mg PO DAILY 100 Days Qty: 100 0RF Rx Instructions: per insurance had to do 100 day supply Lantus Solostar U-100 Insulin 100 unit/mL (3 mL) insulin pen See Rx Instructions .ROUTE .COMPLEX Qty: 15 0RF Dose Instruction: INJECT 10 UNITS SUBCUTANEOUSLY ONCE DAILY Rx Instructions: INJECT 10 UNITS SUBCUTANEOUSLY ONCE DAILY Farxiga 10 mg tablet See Rx Instructions .ROUTE .COMPLEX Qty: 90 0RF Dose Instruction: TAKE 1 TABLET BY MOUTH ONCE DAILY IN THE MORNING Rx Instructions: TAKE 1 TABLET BY MOUTH ONCE DAILY IN THE MORNING metoprolol succinate 50 mg tablet extended release 24 hr See Rx Instructions .ROUTE .COMPLEX Qty: 90 0RF Dose Instruction: Take 1 tablet by mouth once daily Rx Instructions: Take 1 tablet by mouth once daily dicyclomine 20 mg tablet See Rx Instructions .ROUTE .COMPLEX Qty: 25 0RF Dose Instruction: TAKE 1/2 (ONE-HALF) TABLET BY MOUTH TWICE DAILY NEEDED FOR ABDOMINAL DISCOMFORT Rx Instructions: TAKE 1/2 (ONE-HALF) TABLET BY MOUTH TWICE DAILY NEEDED FOR ABDOMINAL DISCOMFORT metformin 500 mg tablet extended release 24 hr See Rx Instructions .ROUTE .COMPLEX Qty: 90 0RF Dose Instruction: TAKE 1 TABLET BY MOUTH IN THE MORNING Rx Instructions: TAKE 1 TABLET BY MOUTH IN THE MORNING dexlansoprazole [Dexilant] 30 mg capsule,biphase delayed releas 60 mg PO DAILY Qty: 60 0RF Rx Instructions: take up to 60mg daily tizanidine 4 mg tablet See Rx Instructions .ROUTE .COMPLEX Qty: 30 0RF Dose Instruction: TAKE 1 TABLET BY MOUTH ONCE DAILY NEEDED FOR MUSCLE SPASTICITY Rx Instructions: TAKE 1 TABLET BY MOUTH ONCE DAILY NEEDED FOR MUSCLE SPASTICITY Benadryl 25 mg capsule 25 mg PO TID PRN (Reason: headache) Qty: 10 0RF ondansetron 4 mg tablet,disintegrating 4 mg PO Q6H PRN (Reason: nausea and vomiting) Qty: 14 0RF Discharge Orders: Discharge ED (Routine); Ordered 03/30/23 Ordered By: Bo Mccrary Referrals: Ofe Paula FNP [Primary Care Provider] - Discharge Diet: Usual diet Discharge Activity: Increase activity as tolerated Patient Instructions: Opioid Safety, Pain Management Activity Restrictions/Additional Instructions: Drink plenty of water with medications. Use Biotene mouthwash as needed to help maintain moisture in the mouth. Many of your medications that you take will cause dry mouth. Use hydrocodone for severe pain. Follow-up with primary care for further evaluation and treatment. Return to ED for new concerns. Coding Level of Care Code ED Portfolio Architect for Marcos Scott
--- NOTE | 2023-03-30 20:20 | PC.NURSE ---
PT CO BILAT LEG CRAMPING, DEHYDRATION, DRY TONGUE, AND ABD SWELLING X 3 DAYS. HE REPORTS A HX OF ESRD. PT MUCUS MEMBRANES ARE DRY. HE IS AWAKE ALERT AND ANSWERING QUESTIONS APPROPRIATELY. PT BREATHING IS NONLABORED. RATE AND RHYTHM ARE WNL. PT ABD IS ROUND, HARD, AND NONTENDER. PT BOWEL SOUNDS ARE IN ALL 4 QUADRANTS. PT LAST BM WAS YESTERDAY.
[2023-03-30] MEDS: HYDROcodone-acetaminophen 5-325 mg Tablet 1 TAB PO (20:34)
[2023-03-30 20:47] LABS: Basophils % 0.4 %; Eosinophils # 0.1 10^3/uL (0.0-0.8); Eosinophils % 0.5 %; Hematocrit 39.9 % (42.0-52.0); Hemoglobin 12.1 g/dL (11.7-16.6); Lymphocytes # 2.4 10^3/uL (0.8-4.8); Lymphocytes % 21.7 %; Mean Corpuscular HGB Conc 30.3 g/dL (30.0-36.0); Mean Corpuscular Hemoglobin 23.5 pg (28.0-34.0); Mean Corpuscular Volume 77.5 fl (80-94); Monocytes % 9.2 %; Neutrophils # 7.61 10^3/uL (1.8-7.7); Neutrophils % 67.8 %; Nucleated Red Blood Cells % 0 %; Platelet Count 294 10^3/cmm (130-400); Red Blood Count 5.15 10^6/uL (4.1-5.3); Red Cell Distribution Width 17.6 % (12.1-15.1); White Blood Count 11.2 10^3/uL (4.0-10.0)
[2023-03-30 21:11] LABS: Anion Gap 16.3 (5-19); Blood Urea Nitrogen 23 mg/dL (6-20); Calcium 9.8 mg/dL (8.5-10.5); Carbon Dioxide 25 mmol/L (22-29); Chloride 104 mmol/L (98-107); Glomerular Filtration Rate 38.4 mL/min (90-130); Glucose 142 mg/dL (65-115); Osmolality Calculated 298 mOsm/kg (285-295); Potassium 4.3 mmol/L (3.5-5.1); Sodium 141 mmol/L (136-145)
[2023-03-30 21:13] LABS: Creatinine Clr Calc Pharmacy 51.1888
[2023-03-30 21:43] LABS: Add Urine Microscopic? NO; Charge for UA Resulting for Rev
[2023-03-30 21:45] LABS: Bilirubin Urine Neg (Negative); Blood Urine Neg (Negative); Glucose Urine UA 4+ (Normal); Ketones Urine Negative (Negative); Leukocyte Esterase Urine Negative (Negative); Nitrate Urine Negative (Negative); Protein Urine Neg (Negative); Specific Gravity, Urine 1.015 (1.005-1.030); Urine Appearance Clear (CLEAR); Urine Color Yellow (Yellow); Urobilinogen Urine Norm (Negative); pH Urine 5 (5-7)
[2023-03-30] MEDS: metoclopramide 5 mg/mL SDV 2 mL 10 MG IM (22:21)
[2023-03-30] MEDS: nystatin 100,000 unit/mL UDC 5 mL 400000 UNIT PO (22:21)
== END 2023-03-30 22:23 | disposition home or self-care (01) ==
PROVIDERS: Emergency Provider Nurse Practitioner Family; PCP Registered Nurse
DX: M54.10 Radiculopathy, site unspecified (principal); M54.9 Dorsalgia, unspecified
CPT/HCPCS: 36415; 80048; 81003; 85025; 96372; 99284; J2765

== ENCOUNTER 2023-04-05 13:04 | Outpatient (CLI) | payer MEDICARE, MEDICAID, SELFPAY ==
--- NOTE | 2023-04-05 13:15 | CT_ITS ---
WS: [id number] CT ABDOMEN AND PELVIS WITH CONTRAST HISTORY: GENERALIZED ABDOMINAL PAIN TECHNIQUE: Imaging performed of the abdomen and pelvis with IV contrast. Single phase imaging of the abdomen. Coronal and sagittal reformats are submitted. All CT scans at [facility] use at [address] one of these dose optimization techniques: automated exposure control; mA and/or kV adjustment per patient size (includes targeted exams where dose is matched to clinical indication); or iterative re construction. IV CONTRAST: Omnipaque 350; 100 mL IV. Oral contrast: Yes. DLP: 550.79 mGy.cm COMPARISON: 05/30/2022 Lower thorax: Lung bases are clear. Heart is normal size. No hiatal hernia. Liver/biliary system: Normal size with no intrahepatic dilatation. Gallbladder: Mildly contracted. Pancreas: Normal size pancreas and pancreatic duct. No adjacent inflammation. Spleen: Normal size spleen. No mass or infarct. Adrenal glands: Normal. Right kidney: Normal. Left kidney: Normal. Aorta: Normal. Lymphadenopathy: None. Free fluid: None. GI tract: Normal stomach. No small bowel obstruction. Moderate constipation. No significant diverticu lar disease. Normal appendix. Abdominal wall: Unremarkable abdominal wall. No hernia. Pelvis: No free fluid or adenopathy within the pelvis. Bones: Posterior lumbar fusion at L4-[address]/CT abdomen pelvis w con* [id number] IMPRESSION: 1. Normal CT abdomen and pelvis. 2. No adenopathy or ascites. 3. Normal appendix.
[2023-04-05] MEDS: iohexol 350 mg/mL 500 mL Btl (per mL) PO (14:37)
== END 2023-04-05 13:05 | disposition home or self-care (01) ==
LOC: RAD 13:09
PROVIDERS: PCP Registered Nurse; Visit Provider Nurse Practitioner Family
DX: R10.84 Generalized abdominal pain (principal)
CPT/HCPCS: 74177; Q9967

== ENCOUNTER 2023-04-06 23:18 | Emergency (ER) | payer MEDICARE, MEDICAID, SELFPAY ==
[2023-04-06 23:28] VITALS: BP 121/75; PULSE 87; RESP 15; TEMP 36.8; O2SAT 97
--- NOTE | 2023-04-07 00:28 | XRR_ITS ---
PROCEDURE INFORMATION: Exam: XR Cervical Spine Exam date and time: 04/07/2023 12:52 AM Age: 47 years old Clinical indication: Prior surgery; Surgery date: 6+ months; Surgery type: Cervical fusion; Patient HX: Left sided neck pain. No injury. History of chronic neck pain. ; Additional info: Neck pain- HX cervical fusion TECHNIQUE: Imaging protocol: Radiologic exam of the cervical spine. Views: 2 or 3 views. COMPARISON: CR XR cervical spine 3V* [id number] 04/26/2022 8:48 AM FINDINGS: Bones/joints: C2-T2 Posterior spinal fusion and laminectomy noted. Rods and pedicle screws are in place and there is no evidence of hardware failure. This finding is stable when compared to the prior exam. C3-C4 anterior cervical spine fusion. Plate and screws in place with no evidence of hardware failure. This finding is stable when compared to the prior exam. Extensive diffuse degenerative change. Soft tissues: Unremarkable. XR/XR cervical spine 3V* [id number] IMPRESSION: 1. C2-T2 Posterior spinal fusion and laminectomy noted. Rods and pedicle screws are in place and there is no evidence of hardware failure. This finding is stable when compared to the prior exam. 2. C3-C4 anterior cervical spine fusion. Plate and screws in place with no evidence of hardware failure. This finding is stable when compared to the prior exam. 3. No new pathology detected.
--- NOTE | 2023-04-07 00:32 | W.ED.NECK ---
HPI - Neck Pain/Injury General: Chief Complaint: Neck Pain/Injury Stated Complaint: neck pain Time Seen by Provider: 04/07/23 00:20 History of Present Illness: Patient reports that he is in for neck pain. He states that he has had history of 3 cervical spine surgeries in the past. He reports his last was 2 to 3 years ago. He reports that over the past couple of days he has had increasing neck pain worse with turning his head to the left. He denies any known injury. He denies fever, chills, nausea, vomiting. He states that he has been having ongoing difficulty swallowing and has an upcoming procedure in [place] on the 26 for dilation of his esophagus. He reports that the next day is his follow-up with Dr. Mitchell Review of Systems Const: Denies: fever(s) or chills Card: Denies: chest pain or palpitations Resp: Denies: dyspnea or productive cough Musc: Reports: neck pain PFSH ED PFSH: Medical History ADD (attention deficit disorder) Angina decubitus Asthma Carpal tunnel syndrome Chest pain Chronic pain syndrome GERD (gastroesophageal reflux disease) Hematuria History of hepatitis Hyperlipidemia Hypertension Irritable bowel syndrome Peptic ulcer disease Pneumothorax Psychiatric care Seasonal allergies Staphylococcal infection of skin Tobacco use Type 2 diabetes mellitus Surgical History H/O chest tube placement H/O neck surgery H/O wrist surgery R History of back surgery History of carpal tunnel surgery L Family History Family/Other No problems noted. Other Adopted Social History Smoking and tobacco status: current every day smoker cigarettes Packs smoked per day: 0.1 and smokeless tobacco Smokeless tobacco user: chewing tobacco and snuff Smokeless tobacco details: 1 can/ 2 days Quit status (tobacco): not considering quitting Second hand smoke exposure: Yes Smoking risk assessment/counseling performed?: No Alcohol intake: former Year of sobriety/quit date alcohol: 2021 Desire information about alcohol rehabilitation?: No Counseling given: No Substance/Drug Use: former Date of last use: Former occasional marijuana. Currently occ CBD oil. Desire information about substance/drug rehabilitation?: No Counseling given: No Lives independently: Yes Household members: spouse Marital status: Current occupational status: unemployed Do you think of yourself as: Straight/Heterosexual Current gender identity: Male Physical Exam Const: COMMON NORMALS: no acute distress, patient oriented x3 and alert Neck/C-Spine: COMMON NORMALS: no JVD OTHER: Postsurgical scar to posterior neck. Patient with tenderness to palpation left trapezius with muscular tension noted around the scapula. No vertebral point tenderness appreciated. Patient does have slight limitation in range of motion related to pain. Resp: COMMON NORMALS: normal respiratory effort, No use of accessory muscles and clear to auscultation bilaterally AUSCULTATION: clear to auscultation bilaterally Cardio: COMMON NORMALS: no JVD, regular rate, regular rhythm, S1 normal heart sound present and S2 normal heart sound present RATE: regular rate RHYTHM: regular rhythm HEART SOUNDS: S1 normal heart sound present and S2 normal heart sound present Neuro: COMMON NORMALS: patient oriented x3 SENSORIUM/ORIENTATION: Yes alert Course Vital Signs: Vital signs: Vital Signs Temperature 98.2 F 04/06/23 23:28 Pulse Rate 80 04/07/23 01:23 Respiratory Rate 16 04/07/23 01:23 Blood Pressure 126/94 04/07/23 01:23 Pulse Oximetry 95 04/07/23 01:23 Oxygen Delivery Me thod Room Air 04/06/23 23:28 MDM - Neck Pain/Injury Medical Decision Making Consider chronic neck pain, muscle spasm, cervical radiculopathy X-ray cervical spine 1 dose of muscle relaxant medication provided in ER tonight. After Flexeril was given patient started itching all over. He denies any respiratory problems, swelling of the mouth, throat, lips, tongue. Benadryl IM was given and patient reports some improvement of the itching. He understands the signs and symptoms of worsening allergic reaction and agrees to return to the ER should he have any new or worsening symptoms. 1 dose of oxycodone given as patient is allergic to Tylenol and still having significant pain. I discussed the case with Dr. Long as the x-ray has still not been read by the radiologist. Dr. Lnog agrees that he does not see anything acutely obvious for fracture although patient has significant fusion hardware noted. Patient does wish to be discharged home at this time. Dr. Long is agreeable to watch for the x-ray to report and to notify the patient should there be any acute abnormalities in need of immediate intervention. Encourage patient to follow-up with Dr. Mitchell for ongoing evaluation and management of chronic pain. Return to the emergency department for any new or worsening symptoms. Discharge Plan Discharge Patient Disposition: Home Clinical Impression: Chronic neck and back pain Condition: Stable Prescriptions: No Action albuterol sulfate [ProAir HFA] 90 mcg/actuation HFA aerosol inhaler 1 - 2 puff INHALATION Q6H PRN (Reason: shortness of breath or wheezing) 30 Days Qty: 18 2RF diclofenac sodium [Voltaren Arthritis Pain] 1 % gel 2 g topical QID Qty: 100 3RF Rx Instructions: apply to feet for plantar fascitis clomipramine 50 mg capsule 50 mg PO .HS Qty: 30 0RF Rx Instructions: Take 50 mg for 1 month then increase to 100 mg. clomipramine 50 mg capsule 100 mg PO .HS Qty: 60 1RF Rx Instructions: Start after 1 month on 50 mg. bupropion HCl [Wellbutrin XL] 150 mg tablet extended release 24 hr 150 mg PO QAM Qty: 30 2RF buspirone 10 mg tablet 20 mg PO TID Qty: 180 2RF hydroxyzine HCl 50 mg tablet 50 mg PO QID PRN (Reason: anxiety) Qty: 120 2RF quetiapine [Seroquel] 100 mg tablet 100 mg PO .HS Qty: 30 2RF vilazodone [Viibryd] 40 mg tablet 40 mg PO QAM Qty: 30 2RF Men's Multivitamin 400-20-300 mcg tablet PO DAILY docusate sodium [Colace] 100 mg capsule 100 mg PO DAILY 30 Days Qty: 60 2RF (DME) Accu-Chek Britany Plus test strp Strip See Rx Instructions .Route Qty: 100 1RF Rx Instructions: As directed (DME) lancets [Accu-Chek Softclix Lancets] Misc See Rx Instructions .Route Qty: 100 0RF Rx Instructions: As directed (DME) blood-glucose meter [Accu-Chek Guide Glucose Meter] Misc See Rx Instructions .Route Qty: 1 0RF Rx Instructions: As directed Nurtec ODT 75 mg tablet,disintegrating 75 mg PO .Every other day 30 Days Qty: 15 0RF Rx Instructions: failed imitrex, rizatriptan, topamax, amitriptyline (DME) blood-glucose meter [Accu-Chek Britany Plus Meter] [facility] See Rx Instructions .Route Qty: 1 0RF Rx Instructions: daily (DME) Accu-Chek Guide test strips Strip See Rx Instructions .Route Qty: 100 0RF Rx Instructions: test once daily Ubrelvy 100 mg tablet See Rx Instructions .ROUTE .COMPLEX Qty: 10 0RF Dose Instruction: TAKE ONE TABLET BY MOUTH ONCE DIRECTED Rx Instructions: TAKE ONE TABLET BY MOUTH ONCE DIRECTED atorvastatin 20 mg tablet 20 mg PO DAILY 100 Days Qty: 100 0RF Rx Instructions: per insurance had to do 100 day supply metoprolol succinate 50 mg tablet extended release 24 hr See Rx Instructions .ROUTE .COMPLEX Qty: 90 0RF Dose Instruction: Take 1 tablet by mouth once daily Rx Instructions: Take 1 tablet by mouth once daily tizanidine 4 mg tablet See Rx Instructions .ROUTE .COMPLEX Qty: 30 0RF Dose Instruction: TAKE 1 TABLET BY MOUTH ONCE DAILY NEEDED FOR MUSCLE SPASTICITY Rx Instructions: TAKE 1 TABLET BY MOUTH ONCE DAILY NEEDED FOR MUSCLE SPASTICITY metformin 500 mg tablet extended release 24 hr See Rx Instructions .ROUTE .COMPLEX Qty: 90 0RF Dose Instruction: TAKE 1 TABLET BY MOUTH IN THE MORNING Rx Instructions: TAKE 1 TABLET BY MOUTH IN THE MORNING dexlansoprazole 60 mg capsule,biphase delayed releas See Rx Instructions .ROUTE .COMPLEX Qty: 30 0RF Dose Instruction: Take 1 capsule by mouth once daily Rx Instructions: Take 1 capsule by mouth once daily Farxiga 10 mg tablet See Rx Instructions .ROUTE .COMPLEX Qty: 30 0RF Dose Instruction: TAKE 1 TABLET BY MOUTH ONCE DAILY IN THE MORNING Rx Instructions: TAKE 1 TABLET BY MOUTH ONCE DAILY IN THE MORNING Lantus Solostar U-100 Insulin 100 unit/mL (3 mL) insulin pen See Rx Instructions .ROUTE .COMPLEX Qty: 15 0RF Dose Instruction: INJECT 10 UNITS SUBCUTANEOUSLY ONCE DAILY Rx Instructions: INJECT 10 UNITS SUBCUTANEOUSLY ONCE DAILY dicyclomine 20 mg tablet See Rx Instructions .ROUTE .COMPLEX Qty: 25 0RF Dose Instruction: TAKE 1/2 (ONE-HALF) TABLET BY MOUTH TWICE DAILY NEEDED FOR ABDOMINAL DISCOMFORT Rx Instructions: TAKE 1/2 (ONE-HALF) TABLET BY MOUTH TWICE DAILY NEEDED FOR ABDOMINAL DISCOMFORT Benadryl 25 mg capsule 25 mg PO TID PRN (Reason: headache) Qty: 10 0RF ondansetron 4 mg tablet,disintegrating 4 mg PO Q6H PRN (Reason: nausea and vomiting) Qty: 14 0RF Biotene Dry Mouth Oral Rinse Mouthwash 15 ml mucous membrane QID PRN (Reason: dry mouth) Qty: 1000 0RF Rx Instructions: swish for 15-30 secs , then spit out; do not swallow hydrocodone-acetaminophen 5-325 mg tablet 1 tab PO Q8H PRN (Reason: pain (scale score 7-10)) Qty: 6 0RF Discharge Orders: Discharge ED (Routine); Ordered 04/07/23 Ordered By: Delphine Pemberton Referrals: Ofe Paula, MERCHANDISE COMPLAINT ADJUSTER [Primary Care Provider] - Discharge Diet: Usual diet Discharge Activity: Resume usual activity Activity Restrictions/Additional Instructions: Your x-ray has not been read by the radiologist however I do not see any acute bony injury. Should the radiologist read come back different you should receive a call from the emergency department. You can also call in tomorrow and get your results. Continue follow-up with Dr. Mitchell. Continue medications at home as previously prescribed. You were given Benadryl for your itching reaction to the muscle relaxant medication. Should you have any new or worsening symptoms, difficulty breathing, swelling of the mouth, lips, throat, tongue you should return immediately to the emergency department. Coding Level of Care Code ED Seat Cover Maker for Marcos Scott
[2023-04-07 01:23] VITALS: BP 126/94; PULSE 80; RESP 16; O2SAT 95
[2023-04-07] MEDS: cyclobenzaprine 10 mg Tablet PO (01:23)
[2023-04-07] MEDS: diphenhydrAMINE 50 mg/mL SDV 1mL IM (02:28)
[2023-04-07 03:24] VITALS: RESP 16
[2023-04-07] MEDS: oxyCODONE 5 mg IR Tab/Cap PO (03:24)
[2023-04-07 03:25] VITALS: BP 126/81; PULSE 89; RESP 16; O2SAT 97
== END 2023-04-07 03:30 | disposition home or self-care (01) ==
PROVIDERS: Emergency Provider Nurse Practitioner Family; PCP Registered Nurse
DX: G89.29 Other chronic pain (principal); M54.2 Cervicalgia; M54.9 Dorsalgia, unspecified; Z79.84 Long term (current) use of oral hypoglycemic drugs; Z79.4 Long term (current) use of insulin; E78.5 Hyperlipidemia, unspecified; I10 Essential (primary) hypertension; E11.9 Type 2 diabetes mellitus without complications; F17.210 Nicotine dependence, cigarettes, uncomplicated
CPT/HCPCS: 72040; 96372; 99284; J1200

== ENCOUNTER → 2023-04-11 15:30 | Outpatient (BNVA) | payer MEDICARE, MEDICAID, SELFPAY | PROVIDERS: PCP Registered Nurse; Visit Provider Registered Nurse | DX: E11.22 Type 2 diabetes mellitus with diabetic chronic kidney disease (principal); K21.9 Gastro-esophageal reflux disease without esophagitis | CPT/HCPCS: 83036 ==

== ENCOUNTER → 2023-04-18 13:27 | Outpatient (BNVA) | payer MEDICARE, MEDICAID, SELFPAY | PROVIDERS: PCP Registered Nurse; Visit Provider Orthopaedic Surgery | DX: Z98.1 Arthrodesis status (principal); M48.062 Spinal stenosis, lumbar region with neurogenic claudication | CPT/HCPCS: 72050; 72110; 99214 ==

== ENCOUNTER 2023-05-08 09:33 | Outpatient (CLI) | payer MEDICARE, MEDICAID, SELFPAY ==
--- NOTE | 2023-05-08 10:15 | MR_ITS ---
WS: [id number] MRI CERVICAL SPINE NONCONTRAST TECHNIQUE: Sagittal T1, T2 and STIR imaging. Axial T2, gradient, and fiesta imaging. CLINICAL INFORMATION: post operative pain COMPARISON: CT cervical January 26, 2021 FINDINGS: Straightening of the normal cervical lordosis. Prior postoperative changes anterior cervical fusion C 3-C4. Prior interbody fusion C5-C6. Dorsal laminectomy defects at these levels with spinal canal deco mpression. Posterior element fusion throughout the cervical and upper thoracic spine. Pedicle screw fixation T1 and T2. Dorsal interconnecting rods. Slight anterolisthesis C2 on C3 has in creased compared to January 26, 2021 CT. C2-C3: Slight anterolisthesis. Spinal canal and foramen are patent. C3-C4: Prior postoperative changes. Mild LEFT bony foraminal narrowing. Mild facet arthropathy. C4-C5: Postoperative changes. Spinal canal and foramen appear patent. C5-C6: Mild LEFT bony foraminal narrowing. Spinal canal and foramen are patent. C6-C7: Mild to moderate LEFT bony foraminal narrowing. Spinal canal and RIGHT foramen are patent. C7-T1: Slight anterolisthesis C7 on T1. Spinal canal is foramen are patent. Visualized brain stem structures: Normal. Prevertebral soft tissues: Normal. MR/MR cervical spin wo con* [id number] IMPRESSION: 1. Postoperative changes appear stable since January 26, 2021. 2. Slight anterolisthesis C2 on C3 appears progressed. 3. No high-grade central canal narrowing. Cord signal is normal. 4. Mild LEFT bony foraminal narrowing C5-C6 and mild to moderate LEFT C6-C7.
--- NOTE | 2023-05-08 11:00 | MR_ITS ---
WS: [id number] MRI LUMBAR SPINE NONCONTRAST TECHNIQUE: Sagittal T1, T2 and STIR imaging. Axial T1 and T2 imaging. CLINICAL INFORMATION: post operative pain COMPARISON: CT lumbar December 24, 2021 FINDINGS: Prior postoperative changes pedicle screw fixation L4-L5 with interbody fusion. Dorsal laminectomy de fects. Slight anterolisthesis L4 on L5. L1-L2: Normal. L2-L3: Mild annular bulging. Slight effacement of ventral thecal sac. Mild facet arthropathy. Small R IGHT foraminal protrusion with mild RIGHT foraminal narrowing. LEFT foramen is patent. L3-L4: Mild annular bulging. Mild facet arthropathy. Small LEFT foraminal protrusion with mild LEFT g reater than RIGHT foraminal narrowing. Mild facet arthropathy. L4-L5: Prior postoperative changes pedicle screw fixation with laminectomy defects. Spinal canal and foramen are patent. L5-S1: Slight retrolisthesis. Mild disc bulging with osteophytic ridging. Mild facet arthropathy. Spi nal canal and foramen are patent. Visualized pelvic bony structures: Normal. Paravertebral soft tissues: Normal. MR/MR lumbar spine wo con* [id number] IMPRESSION: 1. Prior postoperative changes pedicle screw fixation L4-L5 with interbody fus ion. Spinal canal has been decompressed at this level. 2. Small LEFT foraminal protrusion L3-L4 slightly impinges the exiting LEFT L 3 nerve root. 3. Small RIGHT foraminal protrusion L2-L3 slightly impinges the exiting RIGHT L2 nerve root.
== END 2023-05-08 09:34 | disposition home or self-care (01) ==
PROVIDERS: PCP Registered Nurse; Visit Provider Orthopaedic Surgery
DX: M99.01 Segmental and somatic dysfunction of cervical region (principal); M51.26 Other intervertebral disc displacement, lumbar region; M48.02 Spinal stenosis, cervical region; G89.29 Other chronic pain; M48.062 Spinal stenosis, lumbar region with neurogenic claudication; Z98.1 Arthrodesis status
CPT/HCPCS: 72141; 72148

== ENCOUNTER → 2023-06-01 15:16 | Outpatient (BNVA) | payer MEDICARE, OTHER, SELFPAY | PROVIDERS: PCP Registered Nurse; Visit Provider Orthopaedic Surgery | DX: M50.30 Other cervical disc degeneration, unspecified cervical region (principal) | CPT/HCPCS: 99214 ==

== ENCOUNTER 2023-06-15 17:35 | Emergency (ER) | payer MEDICARE, MEDICAID, SELFPAY ==
--- NOTE | 2023-06-15 | XRR_ITS ---
PROCEDURE INFORMATION: Exam: XR Right Foot Exam date and time: 06/15/2023 6:25 PM Age: 47 years old Clinical indication: Injury or trauma; Fall; Sprain or strain; Ankle; Right TECHNIQUE: Imaging protocol: Radiologic exam of the right foot. Views: 3 or more views. COMPARISON: CR (LOW EXM, ) 06/15/2023 6:24 PM FINDINGS: Bones/joints: Normal. Soft tissues: Normal. XR/XR foot RT min 3V* [id number] IMPRESSION: No acute findings.
--- NOTE | 2023-06-15 | XRR_ITS ---
PROCEDURE INFORMATION: Exam: XR Right Ankle Exam date and time: 06/15/2023 6:24 PM Age: 47 years old Clinical indication: Injury or trauma; Fall; Sprain or strain; Foot; Right TECHNIQUE: Imaging protocol: Radiologic exam of the right ankle. Views: 3 or more views. COMPARISON: No relevant prior studies available. FINDINGS: Bones/joints: Normal. Soft tissues: Normal. XR/XR ankle RT min 3V* [id number] IMPRESSION: No acute findings.
[2023-06-15 17:42] VITALS: BP 117/82; PULSE 80; RESP 16; TEMP 36.6; O2SAT 97; BMI 30.2
--- NOTE | 2023-06-15 18:23 | W.ED.EXTPRO ---
HPI - Extremity Problem General: Chief complaint: Extremity Injury, Lower Stated complaint: right foot and ankle injury Time Seen by Provider: 06/15/23 18:23 History of Present Illness: 47-year-old male patient comes in today with injury to the right foot and ankle. Patient reports that last night he had stepped in a hole and since that he has had pain and discomfort with weightbearing to the right inner ankle. No obvious deformity is noted. Minimal swelling is noted. Cap refill and dorsal pedis pulses intact. Review of Systems General: Reports: 10 or more systems reviewed and unremarkable except in HPI and below Musc: Reports: joint pain (Right ankle) PFS ED PFSH: Medical History ADD (attention deficit disorder) Angina decubitus Asthma Carpal tunnel syndrome Chest pain Chronic pain syndrome GERD (gastroesophageal reflux disease) Hematuria History of hepatitis Hyperlipidemia Hypertension Irritable bowel syndrome Peptic ulcer disease Pneumothorax Psychiatric care Seasonal allergies Staphylococcal infection of skin Tobacco use Type 2 diabetes mellitus Surgical History H/O chest tube placement H/O neck surgery H/O wrist surgery R History of back surgery History of carpal tunnel surgery L Family History Family/Other No problems noted. Other Adopted Social History Smoking and tobacco status: current every day smoker cigarettes Packs smoked per day: 0.1 and smokeless tobacco Smokeless tobacco user: chewing tobacco and snuff Smokeless tobacco details: 1 can/ 2 days Quit status (tobacco): not considering quitting Second hand smoke exposure: Yes Smoking risk assessment/counseling performed?: No Alcohol intake: former Year of sobriety/quit date alcohol: 2021 Desire information about alcohol rehabilitation?: No Counseling given: No Substance/Drug Use: former Date of last use: Former occasional marijuana. Currently occ CBD oil. Desire information about substance/drug rehabilitation?: No Counseling given: No Lives independently: Yes Household members: spouse Marital status: Current occupational status: unemployed Do you think of yourself as: Straight/Heterosexual Current gender identity: Male Physical Exam Const: COMMON NORMALS: alert HENMT: COMMON NORMALS: normocephalic HEAD & SCALP: normocephalic Neck/C-Spine: COMMON NORMALS: full ROM Resp: COMMON NORMALS: normal respiratory effort Cardio: COMMON NORMALS: regular rate RATE: regular rate Back/Pelvis: COMMON NORMALS: thoracic and lumbar spine normal to inspection Extremity: RIGHT LOWER EXTREMITY: Yes foot & digits (Medial tenderness to the right ankle. Minimal swelling) Neuro: SENSORIUM/ORIENTATION: Yes alert Skin: COMMON NORMALS: turgor normal GENERAL SKIN EXAM: turgor normal Course Vital Signs: Vital signs: Vital Signs Temperature 97.8 F 06/15/23 17:42 Pulse Rate 80 06/15/23 17:42 Respiratory Rate 16 06/15/23 17:42 Blood Pressure 117/82 06/15/23 17:42 Pulse Oximetry 97 06/15/23 17:42 Oxygen Delivery Me thod Room Air 06/15/23 17:42 MDM - Extremity (Nontraumatic) Medical Decision Making Patient comes in for evaluation of injury to the right ankle. On exam patient has some tenderness to the medial aspect of the ankle with minimal swelling or bruising noted. Dorsal pedis pulse was intact. Sensation was intact. Differential diagnosis includes fracture, dislocation, sprain. X-rays of the foot and ankle were negative for fracture. Reviewed exam with patient with recommendations for treatment and follow-up. Patient reported understanding. Lab Data Radiology Impressions Ankle X-Ray 06/15/23 00:00 IMPRESSION: No acute findings. Foot X-Ray 06/15/23 00:00 IMPRESSION: No acute findings. Discharge Plan Discharge Patient Disposition: Home Clinical Impression: Ankle sprain and strain Condition: Stable Prescriptions: No Action albuterol sulfate [ProAir HFA] 90 mcg/actuation HFA aerosol inhaler 1 - 2 puff INHALATION Q6H PRN (Reason: shortness of breath or wheezing) 30 Days Qty: 18 2RF diclofenac sodium [Voltaren Arthritis Pain] 1 % gel 2 g topical QID Qty: 100 3RF Rx Instructions: apply to feet for plantar fascitis Men's Multivitamin 400-20-300 mcg tablet PO DAILY famotidine 10 mg tablet 10 mg PO DAILY clindamycin phosphate 1 % lotion 1 applic topical BID PRN (Reason: folliculitis) Qty: 60 3RF cyclobenzaprine 5 mg tablet 5 mg PO TID PRN (Reason: muscle spasm) Qty: 30 2RF (DME) Accu-Chek Britany Plus test strp Strip See Rx Instructions .Route Qty: 100 1RF Rx Instructions: As directed (DME) lancets [Accu-Chek Softclix Lancets] Misc See Rx Instructions .Route Qty: 100 0RF Rx Instructions: As directed (DME) blood-glucose meter [Accu-Chek Guide Glucose Meter] Misc See Rx Instructions .Route Qty: 1 0RF Rx Instructions: As directed (DME) blood-glucose meter [Accu-Chek Britany Plus Meter] Mis See Rx Instructions .Route Qty: 1 0RF Rx Instructions: daily (DME) Accu-Chek Guide test strips Strip See Rx Instructions .Route Qty: 100 0RF Rx Instructions: test once daily Ubrelvy 100 mg tablet See Rx Instructions .ROUTE .COMPLEX Qty: 10 0RF Dose Instruction: TAKE ONE TABLET BY MOUTH ONCE DIRECTED Rx Instructions: TAKE ONE TABLET BY MOUTH ONCE DIRECTED atorvastatin 20 mg tablet 20 mg PO DAILY 100 Days Qty: 100 0RF Rx Instructions: per insurance had to do 100 day supply metoprolol succinate 50 mg tablet extended release 24 hr See Rx Instructions .ROUTE .COMPLEX Qty: 90 0RF Dose Instruction: Take 1 tablet by mouth once daily Rx Instructions: Take 1 tablet by mouth once daily metformin 500 mg tablet extended release 24 hr See Rx Instructions .ROUTE .COMPLEX Qty: 90 0RF Dose Instruction: TAKE 1 TABLET BY MOUTH IN THE MORNING Rx Instructions: TAKE 1 TABLET BY MOUTH IN THE MORNING Lantus Solostar U-100 Insulin 100 unit/mL (3 mL) insulin pen See Rx Instructions .ROUTE .COMPLEX Qty: 15 0RF Dose Instruction: INJECT 10 UNITS SUBCUTANEOUSLY ONCE DAILY Rx Instructions: INJECT 10 UNITS SUBCUTANEOUSLY ONCE DAILY buspirone 10 mg tablet 20 mg PO TID Qty: 180 2RF hydroxyzine HCl 50 mg tablet 50 mg PO QID PRN (Reason: anxiety) Qty: 120 2RF quetiapine [Seroquel] 100 mg tablet 100 mg PO .HS Qty: 30 2RF clomipramine 50 mg capsule 100 mg PO .HS Qty: 60 1RF Rx Instructions: Start after 1 month on 50 mg. vilazodone [Viibryd] 40 mg tablet 40 mg PO QAM Qty: 30 2RF dicyclomine 20 mg tablet See Rx Instructions .ROUTE .COMPLEX Qty: 25 0RF Dose Instruction: TAKE 1/2 (ONE-HALF) TABLET BY MOUTH TWICE DAILY NEEDED FOR ABDOMINAL DISCOMFORT Rx Instructions: TAKE 1/2 (ONE-HALF) TABLET BY MOUTH TWICE DAILY NEEDED FOR ABDOMINAL DISCOMFORT sertraline 100 mg tablet 100 mg PO DAILY Qty: 30 2RF Rx Instructions: take a half tab daily for two weeks then full tab daily Farxiga 10 mg tablet See Rx Instructions .ROUTE .COMPLEX Qty: 30 0RF Dose Instruction: TAKE 1 TABLET BY MOUTH ONCE DAILY IN THE MORNING . APPOINTMENT REQUIRED FOR FUTURE REFILLS Rx Instructions: TAKE 1 TABLET BY MOUTH ONCE DAILY IN THE MORNING . APPOINTMENT REQUIRED FOR FUTURE REFILLS bupropion HCl [Wellbutrin XL] 150 mg tablet extended release 24 hr 150 mg PO QAM Qty: 30 2RF haloperidol 2 mg tablet 2 mg PO BID Qty: 60 1RF Benadryl 25 mg capsule 25 mg PO TID PRN (Reason: headache) Qty: 10 0RF ondansetron 4 mg tablet,disintegrating 4 mg PO Q6H PRN (Reason: nausea and vomiting) Qty: 14 0RF Biotene Dry Mouth Oral Rinse Mouthwash 15 ml mucous membrane QID PRN (Reason: dry mouth) Qty: 1000 0RF Rx Instructions: swish for 15-30 secs , then spit out; do not swallow hydrocodone-acetaminophen 5-325 mg tablet 1 tab PO Q8H PRN (Reason: pain (scale score 7-10)) Qty: 6 0RF Discharge Orders: Discharge ED (Routine); Ordered 06/15/23 Ordered By: Bo Mccrary Referrals: Ofe Paula, ABSTRACT MANAGER [Primary Care Provider] - Discharge Diet: Usual diet Discharge Activity: Increase activity as tolerated Patient Instructions: Ankle Sprain (ED) Activity Restrictions/Additional Instructions: Use acetaminophen and ibuprofen to help with pain. Use ice and elevation for further pain relief. Use crutches if needed to help with ambulation. Follow-up with primary care in 1 week for recheck. Return to ED for new concerns. Coding Level of Care Code ED Eligibility Examiner for Marcos Scott
--- NOTE | 2023-06-16 08:49 | DCPLANNER ---
Addendum entered by Wendy Oscar 06/23/23 11:06: Patient did not attend this appointment with ortho Addendum entered by Wendy Oscar 06/16/23 13:02: Patient has a follow up appointment scheduled for Tuesday, June 20, 2023 at 11:00 with Juanjo Leon at ortho. Original Note: manager scientific had message to schedule a follow up appointment for patient with ortho. manager scientific sent patients information to the front office staff at ortho. Patients information will be printed and reviewed. Clinic will call patient with appointment information.
== END 2023-06-15 19:05 | disposition home or self-care (01) ==
PROVIDERS: Emergency Provider Nurse Practitioner Family; PCP Registered Nurse
DX: S93.401A Sprain of unspecified ligament of right ankle, initial encounter (principal); S96.911A Strain of unspecified muscle and tendon at ankle and foot level, right foot, initial encounter; Z79.4 Long term (current) use of insulin; Z79.84 Long term (current) use of oral hypoglycemic drugs; F17.210 Nicotine dependence, cigarettes, uncomplicated; F17.220 Nicotine dependence, chewing tobacco, uncomplicated; E78.5 Hyperlipidemia, unspecified; I10 Essential (primary) hypertension; E11.9 Type 2 diabetes mellitus without complications; W18.42XA Slipping, tripping and stumbling without falling due to stepping into hole or opening, initial encounter
CPT/HCPCS: 73610; 73630; 99283; E0114

== ENCOUNTER 2023-06-26 12:28 | Emergency (ER) | payer MEDICARE, MEDICAID, SELFPAY ==
[2023-06-26 12:41] VITALS: BP 115/77; PULSE 94; RESP 16; TEMP 36.6; O2SAT 98; BMI 30.2
--- NOTE | 2023-06-26 13:08 | XRR_ITS ---
PROCEDURE INFORMATION: Exam: XR Left Knee Exam date and time: 06/26/2023 1:15 PM Age: 48 years old Clinical indication: Pain; Knee; Left; Additional info: Injury/pain TECHNIQUE: Imaging protocol: Radiologic exam of the left knee. Views: 3 views. COMPARISON: No relevant prior studies available. FINDINGS: Bones/joints: No acute fracture or dislocation. Mineralization is normal. Joint spacing and alignment are anatomic. Small quadriceps insertional enthesophyte. Soft tissues: Unremarkable. XR/XR knee LT 3V* [id number] IMPRESSION: No acute fracture or dislocation.
--- NOTE | 2023-06-26 13:09 | ED_ITS ---
HPI - Extremity Injury (Lower) General: Chief Complaint: Extremity Injury, Lower Stated Complaint: left leg pain Time Seen by Provider: 06/26/23 12:56 Source: patient Mode of arrival: wheelchair Limitations: no limitations History of Present Illness: Patient is a 48-year-old male who presents to ED today for evaluation of left knee pain/injury. Patient states he has a known ACL tear to the left knee that was diagnosed years ago . He states he was told he needed surgery but he declined this so he has been treating the knee conservatively at home. He states yesterday he was chasing his grandchildren around when he felt the knee buckle and give out. He states he has had significant discomfort since then. He arrives wearing a Velcro knee sleeve brace. complaint: knee injury Onset (ago): day(s) (yesterday) Injury: Left: knee Place: home Severity: severe Relieving factors: immobilization Exacerbating factors: weight bearing, movement and palpation Context: running Associated symptoms: Reports no associated symptoms Other symptoms: none Treatments prior to arrival: bandage and splint Review of Systems Musc: Reports: neck pain (chronic), back pain (chronic) and joint pain (L knee); Denies: extremity pain, extremity swelling, joint swelling, joint redness or joint warmth Neuro: Denies: numbness in extremities or sensory changes PFS ED PFSH: Medical History ADD (attention deficit disorder) Angina decubitus Asthma Carpal tunnel syndrome Chest pain Chronic pain syndrome GERD (gastroesophageal reflux disease) Hematuria History of hepatitis Hyperlipidemia Hypertension Irritable bowel syndrome Peptic ulcer disease Pneumothorax Psychiatric care Seasonal allergies Staphylococcal infection of skin Tobacco use Type 2 diabetes mellitus Surgical History H/O chest tube placement H/O neck surgery H/O wrist surgery R History of back surgery History of carpal tunnel surgery L Family History Family/Other No problems noted. Other Adopted Social History Smoking and tobacco status: current every day smoker cigarettes Packs smoked per day: 0.1 and smokeless tobacco Smokeless tobacco user: chewing tobacco and snuff Smokeless tobacco details: 1 can/ 2 days Quit status (tobacco): not considering quitting Second hand smoke exposure: Yes Smoking risk assessment/counseling performed?: No Alcohol intake: former Year of sobriety/quit date alcohol: 2021 Desire information about alcohol rehabilitation?: No Counseling given: No Substance/Drug Use: former Date of last use: Former occasional marijuana. Currently occ CBD oil. Desire information about substance/drug rehabilitation?: No Counseling given: No Lives independently: Yes Household members: spouse Marital status: Current occupational status: unemployed Do you think of yourself as: Straight/Heterosexual Current gender identity: Male Physical Exam Const: COMMON NORMALS: no acute distress, average body habitus, patient oriented x3, no limitations, alert and well nourished GENERAL APPEARANCE: cooperative Extremity: COMMON NORMALS: full ROM, capillary refill normal, no joint enlargement, no clubbing, cyanosis or edema, no calf tenderness and no pedal edema GENERAL: Yes normal exam except as noted LEFT LOWER EXTREMITY: Yes knee joint (TTP medial/anterior joint line; crepitus noted with flexion/extension) Left knee: Yes inspection (normal gross inspection; no swelling or redness noted), Yes ROM (normal) and Yes neurovascular exam (normal) Neuro: COMMON NORMALS: patient oriented x3, moves all extremities, no focal motor deficits and no sensory deficits noted SENSORIUM/ORIENTATION: Yes alert Course Vital Signs: Vital signs: Vital Signs Temperature 97.9 F 06/26/23 12:41 Pulse Rate 94 06/26/23 12:41 Respiratory Rate 16 06/26/23 12:41 Blood Pressure 115/77 06/26/23 12:41 Pulse Oximetry 98 06/26/23 12:41 Oxygen Delivery Me thod Room Air 06/26/23 12:41 MDM - Extremity Injury (Lower) Medical Decision Making XR negative. I don't see anywhere (at least back to 2019) where he has ever had a MRI of the knee. Recommend he follow up with PCP and from there they can decide conservative therapy, referral to ortho, physical therapy, MRI, etc. He is stable for DC from an emergency standpoint. Lab Data Radiology Impressions Knee X-Ray 06/26/23 13:08 IMPRESSION: No acute fracture or dislocation. Discharge Plan Discharge Patient Disposition: Home Clinical Impression: Injury of left knee Qualifiers: Encounter type: initial encounter Qualified Code(s): S89.92XA - Unspecified injury of left lower leg, initial encounter Condition: Stable Prescriptions: No Action albuterol sulfate [ProAir HFA] 90 mcg/actuation HFA aerosol inhaler 1 - 2 puff INHALATION Q6H PRN (Reason: shortness of breath or wheezing) 30 Days Qty: 18 2RF diclofenac sodium [Voltaren Arthritis Pain] 1 % gel 2 g topical QID Qty: 100 3RF Rx Instructions: apply to feet for plantar fascitis Men's Multivitamin 400-20-300 mcg tablet PO DAILY famotidine 10 mg tablet 10 mg PO DAILY clindamycin phosphate 1 % lotion 1 applic topical BID PRN (Reason: folliculitis) Qty: 60 3RF cyclobenzaprine 5 mg tablet 5 mg PO TID PRN (Reason: muscle spasm) Qty: 30 2RF clotrimazole 1 % cream 1 applic topical TID Qty: 45 1RF (DME) Accu-Chek Britany Plus test strp Strip See Rx Instructions .Route Qty: 100 1RF Rx Instructions: As directed (DME) lancets [Accu-Chek Softclix Lancets] Misc See Rx Instructions .Route Qty: 100 0RF Rx Instructions: As directed (DME) blood-glucose meter [Accu-Chek Guide Glucose Meter] Misc See Rx Instructions .Route Qty: 1 0RF Rx Instructions: As directed (DME) blood-glucose meter [Accu-Chek Britany Plus Meter] Misc See Rx Instructions .Route Qty: 1 0RF Rx Instructions: daily (DME) Accu-Chek Guide test strips Strip See Rx Instructions .Route Qty: 100 0RF Rx Instructions: test once daily Ubrelvy 100 mg tablet See Rx Instructions .ROUTE .COMPLEX Qty: 10 0RF Dose Instruction: TAKE ONE TABLET BY MOUTH ONCE DIRECTED Rx Instructions: TAKE ONE TABLET BY MOUTH ONCE DIRECTED atorvastatin 20 mg tablet 20 mg PO DAILY 100 Days Qty: 100 0RF Rx Instructions: per insurance had to do 100 day supply metoprolol succinate 50 mg tablet extended release 24 hr See Rx Instructions .ROUTE .COMPLEX Qty: 90 0RF Dose Instruction: Take 1 tablet by mouth once daily Rx Instructions: Take 1 tablet by mouth once daily metformin 500 mg tablet extended release 24 hr See Rx Instructions .ROUTE .COMPLEX Qty: 90 0RF Dose Instruction: TAKE 1 TABLET BY MOUTH IN THE MORNING Rx Instructions: TAKE 1 TABLET BY MOUTH IN THE MORNING Lantus Solostar U-100 Insulin 100 unit/mL (3 mL) insulin pen See Rx Instructions .ROUTE .COMPLEX Qty: 15 0RF Dose Instruction: INJECT 10 UNITS SUBCUTANEOUSLY ONCE DAILY Rx Instructions: INJECT 10 UNITS SUBCUTANEOUSLY ONCE DAILY buspirone 10 mg tablet 20 mg PO TID Qty: 180 2RF hydroxyzine HCl 50 mg tablet 50 mg PO QID PRN (Reason: anxiety) Qty: 120 2RF quetiapine [Seroquel] 100 mg tablet 100 mg PO .HS Qty: 30 2RF clomipramine 50 mg capsule 100 mg PO .HS Qty: 60 1RF Rx Instructions: Start after 1 month on 50 mg. vilazodone [Viibryd] 40 mg tablet 40 mg PO QAM Qty: 30 2RF dicyclomine 20 mg tablet See Rx Instructions .ROUTE .COMPLEX Qty: 25 0RF Dose Instruction: TAKE 1/2 (ONE-HALF) TABLET BY MOUTH TWICE DAILY NEEDED FOR ABDOMINAL DISCOMFORT Rx Instructions: TAKE 1/2 (ONE-HALF) TABLET BY MOUTH TWICE DAILY NEEDED FOR ABDOMINAL DISCOMFORT Farxiga 10 mg tablet See Rx Instructions .ROUTE .COMPLEX Qty: 30 0RF Dose Instruction: TAKE 1 TABLET BY MOUTH ONCE DAILY IN THE MORNING . APPOINTMENT REQUIRED FOR FUTURE REFILLS Rx Instructions: TAKE 1 TABLET BY MOUTH ONCE DAILY IN THE MORNING . APPOINTMENT REQUIRED FOR FUTURE REFILLS bupropion HCl [Wellbutrin XL] 150 mg tablet extended release 24 hr 150 mg PO QAM Qty: 30 2RF haloperidol 2 mg tablet 2 mg PO BID Qty: 60 1RF Benadryl 25 mg capsule 25 mg PO TID PRN (Reason: headache) Qty: 10 0RF ondansetron 4 mg tablet,disintegrating 4 mg PO Q6H PRN (Reason: nausea and vomiting) Qty: 14 0RF Biotene Dry Mouth Oral Rinse Mouthwash 15 ml mucous membrane QID PRN (Reason: dry mouth) Qty: 1000 0RF Rx Instructions: swish for 15-30 secs , then spit out; do not swallow hydrocodone-acetaminophen 5-325 mg tablet 1 tab PO Q8H PRN (Reason: pain (scale score 7-10)) Qty: 6 0RF Discharge Orders: Discharge ED (Routine); Ordered 06/26/23 Ordered By: Morenita Mclaughlin Referrals: Nilesh Reynolds FNP [Primary Care Provider] - Activity Restrictions/Additional Instructions: As we discussed you may follow-up with primary care in the next 1 to 2 weeks for reevaluation and further treatment of your knee pain. Coding Level of Care Code ED Family Life Counselor for [facility]
[2023-06-26 13:38] VITALS: RESP 16
[2023-06-26] MEDS: morphine 4 mg/mL SDV 1 mL IM (13:38)
== END 2023-06-26 13:45 | disposition home or self-care (01) ==
PROVIDERS: Emergency Provider Physician Assistant; PCP Nurse Practitioner Family
DX: S89.92XA Unspecified injury of left lower leg, initial encounter (principal); Z79.4 Long term (current) use of insulin; Z79.84 Long term (current) use of oral hypoglycemic drugs; E78.5 Hyperlipidemia, unspecified; I10 Essential (primary) hypertension; E11.9 Type 2 diabetes mellitus without complications; F17.210 Nicotine dependence, cigarettes, uncomplicated; F17.220 Nicotine dependence, chewing tobacco, uncomplicated; X58.XXXA Exposure to other specified factors, initial encounter
CPT/HCPCS: 73562; 96372; 99284; J2270

== ENCOUNTER 2023-08-01 17:37 | Emergency (ER) | payer MEDICARE, MEDICAID, SELFPAY ==
[2023-08-01 18:14] VITALS: BP 122/72; PULSE 77; RESP 18; TEMP 36.7; O2SAT 96; BMI 28.5
--- NOTE | 2023-08-01 19:01 | ED_ITS ---
HPI - Headache General: Chief Complaint: Headache Stated Complaint: migraine Time Seen by Provider: 08/01/23 18:10 Source: patient Mode of arrival: ambulatory Limitations: no limitations History of Present Illness: Patient is a 48-year-old male who presents to ED today with complaint of a migraine headache. He states migraine started yesterday. He states he has a longstanding history of migraine headaches and has been diagnosed with cluster headaches. He states last time he was in the emergency department he was treated with high flow oxygen and a migraine cocktail with good relief. He is requesting this today. Patient states he used to see Dr. Pagan for treatment of headaches but has not followed up with her in quite some time. He is not on any type of preventative or abortive headache medications. He is having photosensitivity. MD elicited complaint: migraine Pertinent past history: migraines Onset (ago): day(s) (yesterday) Onset description: gradually Exacerbating factors: light Relieving factors: nothing Associated symptoms: Reports nausea and photophobia; Deny chest pain, fever(s), malaise, rash or vomiting Treatments prior to arrival: none Review of Systems Const: Denies: fever(s), chills, body aches, fatigue or malaise Eyes: Reports: photophobia; Denies: change in vision, blurry vision, floaters or seeing flashes ENMT: Denies: throat pain, odynophagia, nasal discharge, nasal congestion or sinus pain Card: Denies: chest pain Resp: Denies: dyspnea GI: Reports: nausea; Denies: vomiting or diarrhea : Denies: flank pain, difficulty urinating or dysuria Musc: Denies: neck pain, back pain, extremity pain or joint pain Skin/Breast: Denies: rash Neuro: Denies: headache(s), numbness in extremities, weakness in extremities, sensory changes or dizziness PFS ED PFSH: Medical History ADD (attention deficit disorder) Angina decubitus Asthma Carpal tunnel syndrome Chest pain Chronic pain syndrome GERD (gastroesophageal reflux disease) Hematuria History of hepatitis Hyperlipidemia Hypertension Irritable bowel syndrome Peptic ulcer disease Pneumothorax Psychiatric care Seasonal allergies Staphylococcal infection of skin Tobacco use Type 2 diabetes mellitus Surgical History H/O chest tube placement H/O neck surgery H/O wrist surgery R History of back surgery History of carpal tunnel surgery L Family History Family/Other No problems noted. Other Adopted Social History Smoking and tobacco status: current every day smoker cigarettes Packs smoked per day: 0.1 and smokeless tobacco Smokeless tobacco user: chewing tobacco and snuff Smokeless tobacco details: 1 can/ 2 days Quit status (tobacco): not considering quitting Second hand smoke exposure: Yes Smoking risk assessment/counseling performed?: No Alcohol intake: former Year of sobriety/quit date alcohol: 2021 Desire information about alcohol rehabilitation?: No Counseling given: No Substance/Drug Use: former Date of last use: Former occasional marijuana. Currently occ CBD oil. Desire information about substance/drug rehabilitation?: No Counseling given: No Lives independently: Yes Household members: spouse Marital status: Current occupational status: unemployed Do you think of yourself as: Straight/Heterosexual Current gender identity: Male Physical Exam Const: COMMON NORMALS: no acute distress, average body habitus, patient oriented x3, no limitations, alert and well nourished ORIENTATION/CONSCIOUSNESS: Yes awake, Yes oriented to person, Yes oriented to place and Yes oriented to time HENMT: COMMON NORMALS: normocephalic, atraumatic, hearing grossly normal bilaterally, external ears normal, EAC's normal and TM's normal bilaterally HEAD & SCALP: normal to inspection, normocephalic and atraumatic FACE & SINUS: normal facial exam EXTERNAL EAR: Yes external ears normal EXTERNAL AUDITORY CANAL: EAC's normal TYMPANIC MEMBRANE: TM's normal bilaterally Eye: COMMON NORMALS: Equal, round and reactive pupils present and EOMs intact bilaterally GENERAL EYE: appearance normal, both eyes and all related structures and normal light reflex PUPIL: Yes Equal, round and reactive pupils present DIRECT OPHTHALMOSCOPY: Yes normal light reflex and Yes photophobia Neck/C-Spine: COMMON NORMALS: full ROM, no lymphadenopathy and no meningeal signs Resp: COMMON NORMALS: normal respiratory effort and clear to auscultation bilaterally AUSCULTATION: clear to auscultation bilaterally Cardio: COMMON NORMALS: regular rate and regular rhythm RATE: regular rate RHYTHM: regular rhythm Extremity: GENERAL: Yes normal exam except as noted Neuro: MERLIN COMA SCALE: document GCS findings Merlin coma scale eye opening: Spontaneous [place] coma scale verbal response: Orientated [place] coma scale motor response: Obey commands Merlin coma scale total score: 15 COMMON NORMALS: patient oriented x3, CN's II-XII intact bilaterally, moves all extremities, no focal motor deficits and no sensory deficits noted SENSORIUM/ORIENTATION: Yes alert, Yes oriented to person, Yes oriented to place and Yes oriented to time MENINGEAL SIGNS: Yes no meningeal signs Skin: COMMON NORMALS: no rashes or lesions noted GENERAL SKIN EXAM: no rashes or lesions noted Course Vital Signs: Vital signs: Vital Signs Temperature 98.0 F 08/01/23 18:14 Pulse Rate 67 08/01/23 19:28 Respiratory Rate 16 08/01/23 20:47 Blood Pressure 143/94 08/01/23 19:28 Pulse Oximetry 100 08/01/23 19:28 Oxygen Delivery Me thod Room Air 08/01/23 18:14 MDM - Headache Medical Decision Making Patient feels better and like to go home. Recommend follow-up with primary care or his neurologist for further treatment options as he feels his migraine headaches are becoming more frequent. No radiology studies performed this visit Discharge Plan Discharge Patient Disposition: Home Clinical Impression: Migraine Qualifiers: Migraine type: unspecified Status migrainosus presence: without status migrainosus Intractability: not intractable Qualified Code(s): G43.909 - Migraine, unspecified, not intractable, without status migrainosus Condition: Stable Prescriptions: No Action albuterol sulfate [ProAir HFA] 90 mcg/actuation HFA aerosol inhaler 1 - 2 puff INHALATION Q6H PRN (Reason: shortness of breath or wheezing) 30 Days Qty: 18 2RF diclofenac sodium [Voltaren Arthritis Pain] 1 % gel 2 g topical QID Qty: 100 3RF Rx Instructions: apply to feet for plantar fascitis Men's Multivitamin 400-20-300 mcg tablet PO DAILY famotidine 10 mg tablet 10 mg PO DAILY clindamycin phosphate 1 % lotion 1 applic topical BID PRN (Reason: folliculitis) Qty: 60 3RF clotrimazole 1 % cream 1 applic topical TID Qty: 45 1RF (DME) Accu-Chek Britany Plus test strp Strip See Rx Instructions .Route Qty: 100 1RF Rx Instructions: As directed (DME) lancets [Accu-Chek Softclix Lancets] Misc See Rx Instructions .Route Qty: 100 0RF Rx Instructions: As directed (DME) blood-glucose meter [Accu-Chek Guide Glucose Meter] Mis See Rx Instructions .Route Qty: 1 0RF Rx Instructions: As directed (DME) blood-glucose meter [Accu-Chek Britany Plus Meter] Mis See Rx Instructions .Route Qty: 1 0RF Rx Instructions: daily (DME) Accu-Chek Guide test strips Strip See Rx Instructions .Route Qty: 100 0RF Rx Instructions: test once daily Ubrelvy 100 mg tablet See Rx Instructions .ROUTE .COMPLEX Qty: 10 0RF Dose Instruction: TAKE ONE TABLET BY MOUTH ONCE DIRECTED Rx Instructions: TAKE ONE TABLET BY MOUTH ONCE DIRECTED atorvastatin 20 mg tablet 20 mg PO DAILY 100 Days Qty: 100 0RF Rx Instructions: per insurance had to do 100 day supply Lantus Solostar U-100 Insulin 100 unit/mL (3 mL) insulin pen See Rx Instructions .ROUTE .COMPLEX Qty: 15 0RF Dose Instruction: INJECT 10 UNITS SUBCUTANEOUSLY ONCE DAILY Rx Instructions: INJECT 10 UNITS SUBCUTANEOUSLY ONCE DAILY buspirone 10 mg tablet 20 mg PO TID Qty: 180 2RF hydroxyzine HCl 50 mg tablet 50 mg PO QID PRN (Reason: anxiety) Qty: 120 2RF quetiapine [Seroquel] 100 mg tablet 100 mg PO .HS Qty: 30 2RF clomipramine 50 mg capsule 100 mg PO .HS Qty: 60 1RF Rx Instructions: Start after 1 month on 50 mg. vilazodone [Viibryd] 40 mg tablet 40 mg PO QAM Qty: 30 2RF dicyclomine 20 mg tablet See Rx Instructions .ROUTE .COMPLEX Qty: 25 0RF Dose Instruction: TAKE 1/2 (ONE-HALF) TABLET BY MOUTH TWICE DAILY NEEDED FOR ABDOMINAL DISCOMFORT Rx Instructions: TAKE 1/2 (ONE-HALF) TABLET BY MOUTH TWICE DAILY NEEDED FOR ABDOMINAL DISCOMFORT bupropion HCl [Wellbutrin XL] 150 mg tablet extended release 24 hr 150 mg PO QAM Qty: 30 2RF metformin 500 mg tablet extended release 24 hr See Rx Instructions .ROUTE .COMPLEX Qty: 90 0RF Dose Instruction: TAKE 1 TABLET BY MOUTH IN THE MORNING Rx Instructions: TAKE 1 TABLET BY MOUTH IN THE MORNING metoprolol succinate 50 mg tablet extended release 24 hr See Rx Instructions .ROUTE .COMPLEX Qty: 90 0RF Dose Instruction: Take 1 tablet by mouth once daily Rx Instructions: Take 1 tablet by mouth once daily cyclobenzaprine 5 mg tablet 5 mg PO TID PRN (Reason: muscle spasm) Qty: 30 2RF Farxiga 10 mg tablet See Rx Instructions .ROUTE .COMPLEX Qty: 30 0RF Dose Instruction: TAKE 1 TABLET BY MOUTH ONCE DAILY IN THE MORNING . APPOINTMENT REQUIRED FOR FUTURE REFILLS Rx Instructions: TAKE 1 TABLET BY MOUTH ONCE DAILY IN THE MORNING . APPOINTMENT REQUIRED FOR FUTURE REFILLS haloperidol 2 mg tablet 2 mg PO BID Qty: 60 1RF Benadryl 25 mg capsule 25 mg PO TID PRN (Reason: headache) Qty: 10 0RF ondansetron 4 mg tablet,disintegrating 4 mg PO Q6H PRN (Reason: nausea and vomiting) Qty: 14 0RF Biotene Dry Mouth Oral Rinse Mouthwash 15 ml mucous membrane QID PRN (Reason: dry mouth) Qty: 1000 0RF Rx Instructions: swish for 15-30 secs , then spit out; do not swallow hydrocodone-acetaminophen 5-325 mg tablet 1 tab PO Q8H PRN (Reason: pain (scale score 7-10)) Qty: 6 0RF Discharge Orders: Discharge ED (Routine); Ordered 08/01/23 Ordered By: Morenita Mclaughlin Referrals: Nilesh Reynolds FNP [Primary Care Provider] - Coding Level of Care Code ED Electronic Equipment Repairmen for [facility]
[2023-08-01] MEDS: diphenhydrAMINE 50 mg/mL SDV 1mL IVP (19:23)
[2023-08-01] MEDS: ketorolac 30 mg/mL INJ IVP (19:24)
[2023-08-01] MEDS: metoclopramide 5 mg/mL SDV 2 mL 10 MG IVP (19:27)
[2023-08-01 19:28] VITALS: BP 143/94; PULSE 67; RESP 16; O2SAT 100
[2023-08-01] MEDS: dexamethasone 4 mg/mL INJ 8 MG IVP (20:03)
[2023-08-01 20:47] VITALS: RESP 16
[2023-08-01] MEDS: fentaNYL 50 mcg/mL INJ 2mL IVP (20:47)
[2023-08-01 21:09] VITALS: BP 126/85; PULSE 72; RESP 16; O2SAT 99
== END 2023-08-01 21:16 | disposition home or self-care (01) ==
PROVIDERS: Emergency Provider Physician Assistant; PCP Nurse Practitioner Family
DX: G43.909 Migraine, unspecified, not intractable, without status migrainosus (principal); Z79.4 Long term (current) use of insulin; Z79.84 Long term (current) use of oral hypoglycemic drugs; F17.210 Nicotine dependence, cigarettes, uncomplicated; E78.5 Hyperlipidemia, unspecified; I10 Essential (primary) hypertension; E11.9 Type 2 diabetes mellitus without complications
CPT/HCPCS: 96374; 96375; 99284; J1100; J1200; J1885; J2765; J3010

== ENCOUNTER → 2023-08-02 10:34 | Outpatient (BNVA) | payer MEDICARE, MEDICAID, SELFPAY | PROVIDERS: PCP Nurse Practitioner Family; Visit Provider Registered Nurse | DX: G89.29 Other chronic pain (principal); M48.062 Spinal stenosis, lumbar region with neurogenic claudication; M54.2 Cervicalgia; E11.22 Type 2 diabetes mellitus with diabetic chronic kidney disease; M19.049 Primary osteoarthritis, unspecified hand | CPT/HCPCS: 83036; 85651; 86141; 86431 ==

== ENCOUNTER 2023-09-02 11:37 | Emergency (ER) | payer MEDICARE, MEDICAID, SELFPAY ==
[2023-09-02 11:47] VITALS: BP 138/83; PULSE 74; RESP 16; TEMP 37.1; O2SAT 96; BMI 28.5
--- NOTE | 2023-09-02 12:09 | CTR_ITS ---
PROCEDURE INFORMATION: Exam: CT Cervical Spine Without Contrast Exam date and time: 09/02/2023 12:18 PM Age: 48 years old Clinical indication: Injury or trauma; Fall; Blunt trauma; Prior surgery; Surgery date: 6+ months; Surgery type: Neck; Additional info: Pain post injury TECHNIQUE: Imaging protocol: Computed tomography of the cervical spine without contrast. Radiation optimization: All CT scans at this facility use at least one of these dose optimization techniques: automated exposure control; mA and/or kV adjustment per patient size (includes targeted exams where dose is matched to clinical indication); or iterative reconstruction. REPORTING DATA: Count of CT and Cardiac NM exams in prior 12 months: This patient has received [address] and 0 known cardiac nuclear medicine studies in the 12 months prior to the current study. COMPARISON: MR cervical spin wo con* [id number] 05/08/2023 10:57 AM RADIATION DOSE METRICS: Total DLP (mGy-cm): 748.07 FINDINGS: Bones/joints: Posterior instrumentation C2 through T2. Anterior instrumentation C3-C4. Anterior fusion extending down to C7. Laminectomy C3 through C7. No subluxation. No fracture is seen. No canal stenosis. No bony neural foraminal narrowing. Lungs: Visualized lung apices are clear. 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 Soft tissues: Unremarkable. CT/CT cervical spin wo con* [id number] IMPRESSION: No acute findings.
[2023-09-02] MEDS: ketorolac 60 mg/2 mL INJ IM (12:25)
--- NOTE | 2023-09-02 13:00 | W.ED.NECK ---
HPI - Neck Pain/Injury General: Chief Complaint: Neck Pain/Injury Stated Complaint: neck pain Time Seen by Provider: 09/02/23 12:06 History of Present Illness: 48-year-old male with history of chronic neck pain and recent neck surgery presented emergency room with acute pain after sustaining injury about 30 minutes ago. Patient further reviews that he was house playing with his grandkids and summersalted. He felt a pop on the lateral aspect of his neck and developed pain. Cannot describe the pain as sharp sensation with severity of 7 out of 10 mostly on the right side of his neck. Increased pain with movement. Patient denies any numbness or tingling. As of consciousness nausea or vomiting. Associated symptoms: Denies dizziness or headache(s) Review of Systems General: Reports: 10 or more systems reviewed and unremarkable except in HPI and below Const: Denies: fatigue, malaise or change in sleep pattern ENMT: Denies: mouth pain, swelling of lips/tongue, bleeding gums, tinnitus, disequilibrium or nasal discharge Card: Denies: chest pain, palpitations or irregular heart rhythm Resp: Denies: dyspnea, productive cough or non-productive cough Musc: Reports: neck pain; Denies: back pain, extremity pain, joint pain, joint swelling or joint redness Neuro: Denies: headache(s), numbness in extremities, weakness in extremities, lack of coordination, frequent falls, dizziness, vertigo, confusion, behavioral changes, Slurred speech present, difficulty communicating thoughts, seizure-like activity or involuntary movements [facility] ED PFSH: Medical History ADD (attention deficit disorder) Angina decubitus Asthma Carpal tunnel syndrome Chest pain Chronic pain syndrome GERD (gastroesophageal reflux disease) Hematuria History of hepatitis Hyperlipidemia Hypertension Irritable bowel syndrome Peptic ulcer disease Pneumothorax Psychiatric care Seasonal allergies Staphylococcal infection of skin Tobacco use Type 2 diabetes mellitus Surgical History H/O chest tube placement H/O neck surgery H/O wrist surgery R History of back surgery History of carpal tunnel surgery L Family History Family/Other No problems noted. Other Adopted Social History Smoking and tobacco/nicotine status: current every day tobacco/nicotine user cigarettes Packs smoked per day: 0.1 and smokeless tobacco Smokeless tobacco user: chewing tobacco and snuff Smokeless tobacco details: 1 can/ 2 days Quit status (tobacco/nicotine): not considering quitting Second hand smoke exposure: Yes Alcohol intake: former Year of sobriety/quit date alcohol: 2021 Substance/Drug Use: former Date of last use: Former occasional marijuana. Currently occ CBD oil. Lives independently: Yes Household members: spouse Marital status: Current occupational status: unemployed Do you think of yourself as: Straight/Heterosexual Current gender identity: Male Physical Exam HENMT: COMMON NORMALS: normocephalic, atraumatic, hearing grossly normal bilaterally, external ears normal, EAC's normal, TM's normal bilaterally, Normal external nose present, Normal nasal mucous membranes and turbinates present, moist oral mucous membranes, oropharynx normal, dentition normal and gingiva normal HEAD & SCALP: normocephalic and atraumatic NOSE: Normal external nose present and Normal nasal mucous membranes and turbinates present EXTERNAL EAR: Yes external ears normal EXTERNAL AUDITORY CANAL: EAC's normal TYMPANIC MEMBRANE: TM's normal bilaterally Eye: COMMON NORMALS: Equal, round and reactive pupils present, EOMs intact bilaterally, conjunctivae normal, no scleral icterus, no papilledema, normal visual courtney by confrontation and fundi normal bilaterally CONJUNCTIVA: Yes conjunctivae normal PUPIL: Yes Equal, round and reactive pupils present DIRECT OPHTHALMOSCOPY: Yes no papilledema and Yes fundi normal bilaterally Neck/C-Spine: COMMON NORMALS: no meningeal signs and no JVD GENERAL: Yes normal visual inspection, Yes trachea midline, No anterior neck swelling (Muscle tenderness upon palpation some mild swelling on the lateral aspect o), No lymphadenopathy and Yes tender (Diffuse tenderness on the lateral aspect of the neck on the right side. Mi) CERVICAL SPINE: Yes cervical ROM normal, Yes pain with cervical ROM, No loss of normal cervical lordosis, No step off deformity and Yes Paracervical muscle tenderness right Resp: COMMON NORMALS: normal respiratory effort, No retractions, No use of accessory muscles, clear to auscultation bilaterally and percussion normal AUSCULTATION: clear to auscultation bilaterally PERCUSSION: percussion normal Cardio: COMMON NORMALS: no JVD, regular rate, regular rhythm, S1 normal heart sound present, S2 normal heart sound present, No gallops present (Cardio), No clicks present (Cardio), No murmurs present (Cardio), No rub (Cardio) and Peripheral pulses 2+ throughout RATE: regular rate RHYTHM: regular rhythm HEART SOUNDS: S1 normal heart sound present and S2 normal heart sound present PERIPHERAL PULSES: Peripheral pulses 2+ throughout : COMMON NORMALS: Yes no CVA tenderness BLADDER/KIDNEY EXAM: Yes no CVA tenderness Back/Pelvis: COMMON NORMALS: no CVA tenderness, thoracic and lumbar spine normal to inspection, no thoracic nor lumbar tenderness, thoraco-lumbar ROM normal and straight leg raise negative bilaterally Neuro: MERLIN COMA SCALE: document GCS findings Morley coma scale eye opening: Spontaneous Merlin coma scale verbal response: Orientated Merlin coma scale motor response: Obey commands Merlin coma scale total score: 15 MENINGEAL SIGNS: Yes no meningeal signs, No nuccal rigidity, No Brudzinski's sign present and No Kernig's sign presnet SPEECH: speech normal SENSORY EXAM: Yes extremities; No sensory level loss detected or Normal double simultaneous stimulation for sensation MOTOR EXAM: 5/5 motor strength present throughout Course Vital Signs: Vital signs: Vital Signs Temperature 98.8 F 09/02/23 11:47 Pulse Rate 74 09/02/23 11:47 Respiratory Rate 16 09/02/23 11:47 Blood Pressure 138/83 09/02/23 11:47 Pulse Oximetry 96 09/02/23 11:47 Oxygen Delivery Me thod Room Air 09/02/23 11:47 MDM - Neck Pain/Injury Medical Decision Making Patient made comfortable emergency room. C-collar was applied. Patient underwent CT scan of his cervical. CT scan reviewed and discussed with patient. Close follow-up with specialist recommended for further evaluation and treatment. Patient remained stable without any acute distress prior to discharge. Differential Diagnosis Likely disc disorder of cervical region, whiplash injury to neck, closed subluxation of cervical spine, fracture of cervical spine without lesion of spinal cord, cervical radiculopathy, vertebral artery dissection, cervical spondylosis and strain of neck muscle Lab Data Radiology Impressions Cervical Spine CT 09/02/23 12:09 IMPRESSION: No acute findings. XR interpretation done by ED provider, pending radiology final review Discharge Plan Discharge Patient Disposition: Home Clinical Impression: Injury of neck, Strain of neck muscle, Cervical sprain Condition: Stable Prescriptions: New cyclobenzaprine 10 mg tablet 10 mg PO BID PRN (Reason: muscle spasm) Qty: 20 0RF naproxen 500 mg tablet 500 mg PO Q12H PRN (Reason: pain) Qty: 20 0RF No Action albuterol sulfate [ProAir HFA] 90 mcg/actuation HFA aerosol inhaler 1 - 2 puff INHALATION Q6H PRN (Reason: shortness of breath or wheezing) 30 Days Qty: 18 2RF diclofenac sodium [Voltaren Arthritis Pain] 1 % gel 2 g topical QID Qty: 100 3RF Rx Instructions: apply to feet for plantar fascitis Men's Multivitamin 400-20-300 mcg tablet PO DAILY famotidine 10 mg tablet 10 mg PO DAILY Linzess 72 mcg capsule 72 mcg PO .HS vilazodone [Viibryd] 40 mg tablet 40 mg PO QAM Qty: 30 2RF quetiapine [Seroquel] 100 mg tablet 100 mg PO .HS Qty: 30 2RF haloperidol 2 mg tablet 2 mg PO BID Qty: 60 2RF buspirone 10 mg tablet 20 mg PO TID Qty: 180 2RF bupropion HCl [Wellbutrin XL] 150 mg tablet extended release 24 hr 150 mg PO QAM Qty: 30 2RF (DME) Accu-Chek Britany Plus test strp Strip See Rx Instructions .Route Qty: 100 1RF Rx Instructions: As directed (DME) lancets [Accu-Chek Softclix Lancets] Misc See Rx Instructions .Route Qty: 100 0RF Rx Instructions: As directed (DME) blood-glucose meter [Accu-Chek Guide Glucose Meter] Misc See Rx Instructions .Route Qty: 1 0RF Rx Instructions: As directed (DME) blood-glucose meter [Accu-Chek Britany Plus Meter] Misc See Rx Instructions .Route Qty: 1 0RF Rx Instructions: daily (DME) Accu-Chek Guide test strips Strip See Rx Instructions .Route Qty: 100 0RF Rx Instructions: test once daily Ubrelvy 100 mg tablet See Rx Instructions .ROUTE .COMPLEX Qty: 10 0RF Dose Instruction: TAKE ONE TABLET BY MOUTH ONCE DIRECTED Rx Instructions: TAKE ONE TABLET BY MOUTH ONCE DIRECTED atorvastatin 20 mg tablet 20 mg PO DAILY 100 Days Qty: 100 0RF Rx Instructions: per insurance had to do 100 day supply Lantus Solostar U-100 Insulin 100 unit/mL (3 mL) insulin pen See Rx Instructions .ROUTE .COMPLEX Qty: 15 0RF Dose Instruction: INJECT 10 UNITS SUBCUTANEOUSLY ONCE DAILY Rx Instructions: INJECT 10 UNITS SUBCUTANEOUSLY ONCE DAILY hydroxyzine HCl 50 mg tablet 50 mg PO QID PRN (Reason: anxiety) Qty: 120 2RF dicyclomine 20 mg tablet See Rx Instructions .ROUTE .COMPLEX Qty: 25 0RF Dose Instruction: TAKE 1/2 (ONE-HALF) TABLET BY MOUTH TWICE DAILY NEEDED FOR ABDOMINAL DISCOMFORT Rx Instructions: TAKE 1/2 (ONE-HALF) TABLET BY MOUTH TWICE DAILY NEEDED FOR ABDOMINAL DISCOMFORT metformin 500 mg tablet extended release 24 hr See Rx Instructions .ROUTE .COMPLEX Qty: 90 0RF Dose Instruction: TAKE 1 TABLET BY MOUTH IN THE MORNING Rx Instructions: TAKE 1 TABLET BY MOUTH IN THE MORNING metoprolol succinate 50 mg tablet extended release 24 hr See Rx Instructions .ROUTE .COMPLEX Qty: 90 0RF Dose Instruction: Take 1 tablet by mouth once daily Rx Instructions: Take 1 tablet by mouth once daily cyclobenzaprine 5 mg tablet 5 mg PO TID PRN (Reason: muscle spasm) Qty: 30 2RF Farxiga 10 mg tablet See Rx Instructions .ROUTE .COMPLEX Qty: 30 0RF Dose Instruction: TAKE 1 TABLET BY MOUTH ONCE DAILY IN THE MORNING. APPOINTMENT REQUIRED FOR FUTURE REFILLS. Rx Instructions: TAKE 1 TABLET BY MOUTH ONCE DAILY IN THE MORNING. ondansetron 4 mg tablet,disintegrating 4 mg PO Q6H PRN (Reason: nausea and vomiting) Qty: 14 0RF Discharge Orders: Discharge ED (Routine); Ordered 09/02/23 Ordered By: Reagan Prajapati Referrals: Nilesh Reynolds, SERVICE SPRINKLER HELPER [Primary Care Provider] - Discharge Diet: Advance as tolerated Discharge Activity: Resume usual activity Patient Instructions: Cervical Sprain (ED), Cervical Strain, Opioid Safety, Pain Management Coding Level of Care Code ED Loading Supervisor for Marcos Scott
== END 2023-09-02 13:54 | disposition home or self-care (01) ==
PROVIDERS: Emergency Provider Family Medicine; PCP Nurse Practitioner Family
DX: S16.1XXA Strain of muscle, fascia and tendon at neck level, initial encounter (principal); S13.4XXA Sprain of ligaments of cervical spine, initial encounter; Z79.4 Long term (current) use of insulin; Z79.84 Long term (current) use of oral hypoglycemic drugs; F17.210 Nicotine dependence, cigarettes, uncomplicated; F17.220 Nicotine dependence, chewing tobacco, uncomplicated; E78.5 Hyperlipidemia, unspecified; I10 Essential (primary) hypertension; E11.9 Type 2 diabetes mellitus without complications; X50.9XXA Other and unspecified overexertion or strenuous movements or postures, initial encounter; Y93.43 Activity, gymnastics
CPT/HCPCS: 72125; 96372; 99284; J1885

== ENCOUNTER 2023-10-09 09:20 | Emergency (ER) | payer MEDICARE, MEDICAID, SELFPAY ==
[2023-10-09] VITALS (39 sets, daily range): BP systolic 119–145; BP diastolic 72–98; PULSE 73–98; RESP 11–23; O2SAT 93–99; BMI 28.4
--- NOTE | 2023-10-09 09:24 | ED_ITS ---
HPI - General Adult General: Chief complaint: Extremity Problem,Nontraumatic Stated complaint: Stroke symptoms Time Seen by Provider: 10/09/23 09:24 Source: patient Mode of arrival: ambulatory History of Present Illness: 48-year-old male presents emergency room complaining of numbness and tingling in his right arm intermittently for the last 3 days. He woke up with it Monday morning as well as this morning numbness and tingling resolved shortly after he wakes up but he has pain in the anterior right shoulder that persists. He has pain with any movement. He does not have any other focal deficits. At one point he felt like he had a little difficulty speaking and some balance issues on Monday 3 days ago but that has not recurred. He is otherwise awake and alert denies headache no recent trauma to the shoulder. Pain is exacerbated by range of motion of the shoulder localizes to the anterior shoulder in the AC joint on the right Onset (ago): day(s) (3) Location: upper extremity (Right arm and shoulder) Severity: mild Quality: sharp Pain Consistency: intermittent Relieving factors: none Exacerbating factors: none Associated symptoms: Deny chest pain, confusion, cough, diaphoresis, decreased appetite, dyspnea, fevers/chills, headache(s), malaise, nausea, rash, palpitations, seizures, short of breath, syncope, vomiting or weakness Review of Systems Const: Denies: fever(s), chills, malaise or diaphoresis Card: Denies: chest pain, palpitations or syncope Resp: Denies: dyspnea GI: Denies: abdominal pain, nausea or vomiting : Denies: dysuria, urinary frequency or urinary urgency Musc: Denies: neck pain or back pain Skin/Breast: Denies: rash Neuro: Denies: headache(s) or confusion PFSH ED PFSH: Medical History Psychiatric care Asthma Pneumothorax Staphylococcal infection of skin Seasonal allergies Angina decubitus History of hepatitis Peptic ulcer disease Hematuria Chest pain Carpal tunnel syndrome Tobacco use Hypertension GERD (gastroesophageal reflux disease) Chronic pain syndrome Hyperlipidemia Irritable bowel syndrome ADD (attention deficit disorder) Type 2 diabetes mellitus Surgical History H/O chest tube placement H/O wrist surgery R History of carpal tunnel surgery L History of back surgery H/O neck surgery Family History Family/Other No problems noted. Other Adopted Social History Smoking and tobacco/nicotine status: current every day tobacco/nicotine user cigarettes Packs smoked per day: 0.1 and smokeless tobacco Smokeless tobacco user: chewing tobacco and snuff Smokeless tobacco details: 1 can/ 2 days Quit status (tobacco/nicotine): not considering quitting Second hand smoke exposure: Yes Alcohol intake: former Year of sobriety/quit date alcohol: 2021 Substance/Drug Use: former Date of last use: Former occasional marijuana. Currently occ CBD oil. Lives independently: Yes Household members: spouse Marital status: Current occupational status: unemployed Do you think of yourself as: Straight/Heterosexual Current gender identity: Male Physical Exam Const: GENERAL APPEARANCE: cooperative and comfortable ORIENTATION/CONSCIOUSNESS: Yes awake, Yes oriented to person, Yes oriented to place and Yes oriented to time HENMT: COMMON NORMALS: normocephalic, atraumatic and hearing grossly normal bilaterally HEAD & SCALP: normocephalic and atraumatic Resp: COMMON NORMALS: normal respiratory effort, No retractions, No use of accessory muscles and clear to auscultation bilaterally AUSCULTATION: clear to auscultation bilaterally Cardio: COMMON NORMALS: regular rate, regular rhythm and No murmurs present (Cardio) RATE: regular rate RHYTHM: regular rhythm GI: COMMON NORMALS: Soft to palpation and No hepatosplenomegaly present AUSCULTATION: Yes normoactive bowel sounds PALPATION: Yes Soft to palpation, No Tenderness to palpation present (GI), No Guarding due to palpation present (GI) and Yes No hepatosplenomegaly present Extremity: COMMON NORMALS: normal to inspection, capillary refill normal, no clubbing, cyanosis or edema, no calf tenderness and no pedal edema OTHER: 5 minutes management sign right shoulder . Pain localizes to the anterior shoulder at the AC joint. 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 Symptoms reproducible with range of motion of the shoulder and isolated to the shoulder discharged home with musculoskeletal shoulder pain follow-up with primary care if not improving may need advanced imaging reviewed with the patient Medical Records I reviewed the patient's medical records. Lab Data I reviewed the patient's lab results. All radiology interpretation(s) finalized by discharge Discharge Plan Discharge Patient Disposition: Home Clinical Impression: Shoulder arthralgia Prescriptions: New diclofenac sodium 75 mg tablet,delayed release (DR/EC) 75 mg PO Q12H PRN (Reason: pain) Qty: 14 0RF Held naproxen 500 mg tablet 500 mg PO Q12H PRN (Reason: pain) Qty: 20 0RF Hold Instructions: Resume on 10/16/23. No Action albuterol sulfate [ProAir HFA] 90 mcg/actuation HFA aerosol inhaler 1 - 2 puff INHALATION Q6H PRN (Reason: shortness of breath or wheezing) 30 Days Qty: 18 2RF diclofenac sodium [Voltaren Arthritis Pain] 1 % gel 2 g topical QID Qty: 100 3RF Rx Instructions: apply to feet for plantar fascitis Men's Multivitamin 400-20-300 mcg tablet PO DAILY famotidine 10 mg tablet 10 mg PO DAILY Linzess 72 mcg capsule 72 mcg PO .HS vilazodone [Viibryd] 40 mg tablet 40 mg PO QAM Qty: 30 2RF quetiapine [Seroquel] 100 mg tablet 100 mg PO .HS Qty: 30 2RF haloperidol 2 mg tablet 2 mg PO BID Qty: 60 2RF buspirone 10 mg tablet 20 mg PO TID Qty: 180 2RF bupropion HCl [Wellbutrin XL] 150 mg tablet extended release 24 hr 150 mg PO QAM Qty: 30 2RF (DME) Accu-Chek Britany Plus test strp Strip See Rx Instructions .Route Qty: 100 1RF Rx Instructions: As directed (DME) lancets [Accu-Chek Softclix Lancets] Misc See Rx Instructions .Route Qty: 100 0RF Rx Instructions: As directed (DME) blood-glucose meter [Accu-Chek Guide Glucose Meter] [facility] [place] [facility] See Rx Instructions .Route Qty: 1 0RF Rx Instructions: As directed (DME) blood-glucose meter [Accu-Chek Britany Plus Meter] [facility] [place] [facility] See Rx Instructions .Route Qty: 1 0RF Rx Instructions: daily (DME) Accu-Chek Guide test strips Strip See Rx Instructions .Route Qty: 100 0RF Rx Instructions: test once daily Ubrelvy 100 mg tablet See Rx Instructions .ROUTE .COMPLEX Qty: 10 0RF Dose Instruction: TAKE ONE TABLET BY MOUTH ONCE DIRECTED Rx Instructions: TAKE ONE TABLET BY MOUTH ONCE DIRECTED atorvastatin 20 mg tablet 20 mg PO DAILY 100 Days Qty: 100 0RF Rx Instructions: per insurance had to do 100 day supply Lantus Solostar U-100 Insulin 100 unit/mL (3 mL) insulin pen See Rx Instructions .ROUTE .COMPLEX Qty: 15 0RF Dose Instruction: INJECT 10 UNITS SUBCUTANEOUSLY ONCE DAILY Rx Instructions: INJECT 10 UNITS SUBCUTANEOUSLY ONCE DAILY hydroxyzine HCl 50 mg tablet 50 mg PO QID PRN (Reason: anxiety) Qty: 120 2RF dicyclomine 20 mg tablet See Rx Instructions .ROUTE .COMPLEX Qty: 25 0RF Dose Instruction: TAKE 1/2 (ONE-HALF) TABLET BY MOUTH TWICE DAILY NEEDED FOR ABDOMINAL DISCOMFORT Rx Instructions: TAKE 1/2 (ONE-HALF) TABLET BY MOUTH TWICE DAILY NEEDED FOR ABDOMINAL DISCOMFORT metformin 500 mg tablet extended release 24 hr See Rx Instructions .ROUTE .COMPLEX Qty: 90 0RF Dose Instruction: TAKE 1 TABLET BY MOUTH IN THE MORNING Rx Instructions: TAKE 1 TABLET BY MOUTH IN THE MORNING metoprolol succinate 50 mg tablet extended release 24 hr See Rx Instructions .ROUTE .COMPLEX Qty: 90 0RF Dose Instruction: Take 1 tablet by mouth once daily Rx Instructions: Take 1 tablet by mouth once daily Farxiga 10 mg tablet See Rx Instructions .ROUTE .COMPLEX Qty: 30 0RF Dose Instruction: TAKE 1 TABLET BY MOUTH ONCE DAILY IN THE MORNING Rx Instructions: TAKE 1 TABLET BY MOUTH ONCE DAILY IN THE MORNING cyclobenzaprine 5 mg tablet 5 mg PO TID PRN (Reason: muscle spasm) Qty: 30 2RF ondansetron 4 mg tablet,disintegrating 4 mg PO Q6H PRN (Reason: nausea and vomiting) Qty: 14 0RF Discharge Orders: Discharge ED (Routine); Ordered 10/09/23 Ordered By: Loyd Temple Referrals: Nilesh Reynolds FNP [Primary Care Provider] - Discharge Diet: Usual diet Discharge Activity: Increase activity as tolerated Patient Instructions: Shoulder Sprain (ED), Opioid Safety, Pain Management Activity Restrictions/Additional Instructions: Thank you for choosing [facility] for your healthcare needs today. Please realize this is an emergency room and that we are providing you with a medical screening exam and this may not be complete and all inclusive of all the testing and or work up that you may need to determine your ailment or severity of your illness. It is very important that you follow up as instructed or that you return to the Emergency Department should you have concerns or if your condition changes or worsens in any way. You are seen today for shoulder pain that appears musculoskeletal based on your exam. I recommend using the arm sling and anti-inflammatories follow-up with your primary care doctor if not improving. 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
--- NOTE | 2023-10-09 09:39 | XR_ITS ---
WS: [id number] Right shoulder, 3 views, 10/09/2023 Clinical Data: pain Comparison: Right shoulder, 05/03/2019 Findings: No fractures or dislocations are seen. The AC joint shows mild osteoarthritis. The adjacent right cla vicle, right scapula and ribs are normal. The soft tissues are unremarkable. There is a posterior cer vical thoracic fusion of the right neck. 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
--- NOTE | 2023-10-09 09:41 | CT_ITS ---
WS: [id number] CT HEAD NONCONTRAST HISTORY: r arm weakness TECHNIQUE: Contiguous axial imaging performed through the brain in 2.5 mm imaging. Bone and soft tiss ue windows. Sagittal and coronal reformats reviewed. All CT scans at [facility] use at least one of these dose optimization techniques: automated exposure control; mA and/or kV adjustment per pa tient size (includes targeted exams where dose is matched to clinical indication); or iterative recon struction. DLP: 1054.90 mGy.cm COMPARISON: 06/03/2022 No acute intracranial hemorrhage, midline shift or mass effect. Mild atrophy and mild small vessel ischemic disease. No infarcts. Ventricles: Normal size with no hydrocephalus. No inferior displacement of the cerebellar tonsils. Paranasal sinuses: As visualized are clear. Mastoid air cells: Well pneumatized. Calvarium and scalp: Skull is intact with no soft tissue edema or swelling. IMPRESSION: 1. No acute intracranial hemorrhage or edema. 2. Very mild atrophy and small vessel ischemic disease.
== END 2023-10-09 12:47 | disposition home or self-care (01) ==
PROVIDERS: Emergency Provider Family Medicine; PCP Nurse Practitioner Family
DX: M25.511 Pain in right shoulder (principal); Z79.84 Long term (current) use of oral hypoglycemic drugs; Z79.4 Long term (current) use of insulin; F17.210 Nicotine dependence, cigarettes, uncomplicated; F17.220 Nicotine dependence, chewing tobacco, uncomplicated; I10 Essential (primary) hypertension; E78.5 Hyperlipidemia, unspecified; E11.9 Type 2 diabetes mellitus without complications
CPT/HCPCS: 70450; 73030; 99284

== ENCOUNTER → 2023-11-01 12:01 | Outpatient (BNVA) | payer MEDICARE, MEDICAID, SELFPAY | PROVIDERS: PCP Family Medicine; Visit Provider Internal Medicine Rheumatology | DX: M45.6 Ankylosing spondylitis lumbar region (principal); Z11.59 Encounter for screening for other viral diseases; Z11.1 Encounter for screening for respiratory tuberculosis; M19.042 Primary osteoarthritis, left hand; Z79.899 Other long term (current) drug therapy; N18.30 Chronic kidney disease, stage 3 unspecified; E11.9 Type 2 diabetes mellitus without complications | CPT/HCPCS: 36415; 73130; 73630; 80076; 82306; 82565; 85025; 85651; 86200; 86480; 86704; 86812; 87340; 99204 ==

== ENCOUNTER → 2023-11-09 09:25 | Outpatient (BNVA) | payer MEDICARE, MEDICAID, SELFPAY | PROVIDERS: PCP Family Medicine; Visit Provider Nurse Practitioner Family | DX: E11.22 Type 2 diabetes mellitus with diabetic chronic kidney disease (principal); Z79.899 Other long term (current) drug therapy | CPT/HCPCS: 80061; 83036; 83721 ==

== ENCOUNTER → 2023-11-16 10:21 | Outpatient (BNVA) | payer MEDICARE, OTHER, SELFPAY | PROVIDERS: PCP Family Medicine; Visit Provider Nurse Practitioner Family | DX: M10.9 Gout, unspecified (principal); Z79.899 Other long term (current) drug therapy | CPT/HCPCS: 84550 ==

== ENCOUNTER 2023-11-24 16:07 | Outpatient (CLI) | payer MEDICARE, OTHER, SELFPAY ==
[2023-11-29 08:25] LABS: Hepatitis B Virus DNA NOT DETECTED (NOT DETECTED); Hepatitis B Virus DNA PCR NOT DETECTED Log IU/mL (NOT DETECTED)
== END 2023-11-24 16:08 | disposition home or self-care (01) ==
LOC: LAB 16:09
PROVIDERS: PCP Family Medicine; Visit Provider Internal Medicine Rheumatology
DX: R76.8 Other specified abnormal immunological findings in serum (principal)
CPT/HCPCS: 87517

== ENCOUNTER → 2023-12-13 16:30 | Outpatient (BNVA) | payer MEDICARE, OTHER, SELFPAY | PROVIDERS: PCP Nurse Practitioner Family; Visit Provider Nurse Practitioner Family | DX: R73.9 Hyperglycemia, unspecified (principal) | CPT/HCPCS: 82962 ==

== ENCOUNTER 2023-12-15 06:30 | Emergency (ER) | payer MEDICARE, MEDICAID, SELFPAY ==
[2023-12-15 06:35] VITALS: BP 131/82; PULSE 74; RESP 18; O2SAT 98; BMI 29.4
[2023-12-15 06:39] LABS: Glucose Point of Care 306 mg/dL (70-110)
--- NOTE | 2023-12-15 06:41 | W.ED.GENADLT ---
HPI - General Adult General: Chief complaint: Recheck/Abnormal Lab/Rx Stated complaint: high blood sugar Time Seen by Provider: 12/15/23 06:34 Source: patient Mode of arrival: ambulatory Limitations: no limitations History of Present Illness: 48-year-old male states that this morning his blood sugar is running high states it was 350 he is a diabetic he is on metformin and Lantus. He states that he has had some highs and lows last 2 to 3 days he denies any vomiting denies any diarrhea denies any fevers denies any worsening improving factors. PFS ED PFSH: Medical History CKD (chronic kidney disease) stage 3, GFR 30-59 ml/min Diabetes mellitus type 2, uncontrolled Immunization counseling High risk medication use Inflammatory arthritis Psychiatric care Asthma Pneumothorax Staphylococcal infection of skin Seasonal allergies Angina decubitus History of hepatitis Peptic ulcer disease Hematuria Chest pain Carpal tunnel syndrome Tobacco use Hypertension GERD (gastroesophageal reflux disease) Chronic pain syndrome Hyperlipidemia Irritable bowel syndrome ADD (attention deficit disorder) Type 2 diabetes mellitus Surgical History H/O chest tube placement H/O wrist surgery R History of carpal tunnel surgery L History of back surgery H/O neck surgery Family History Family/Other No problems noted. Other Adopted Social History Smoking and tobacco/nicotine status: current every day tobacco/nicotine user cigarettes Packs smoked per day: 0.1 and smokeless tobacco Smokeless tobacco user: chewing tobacco and snuff Smokeless tobacco details: 1 can/ 2 days Quit status (tobacco/nicotine): not considering quitting Second hand smoke exposure: Yes Alcohol intake: former Year of sobriety/quit date alcohol: 2021 Substance/Drug Use: former Date of last use: Former occasional marijuana. Currently occ CBD oil. Lives independently: Yes Household members: spouse Marital status: Current occupational status: unemployed Do you think of yourself as: Straight/Heterosexual Current gender identity: Male Physical Exam Const: COMMON NORMALS: no acute distress, patient oriented x3 and healthy appearing HENMT: COMMON NORMALS: normocephalic and atraumatic HEAD & SCALP: normocephalic and atraumatic Neck/C-Spine: COMMON NORMALS: full ROM and supple Chest: COMMONS NORMALS: normal inspection of the chest Resp: COMMON NORMALS: normal respiratory effort, No retractions, No use of accessory muscles and clear to auscultation bilaterally AUSCULTATION: clear to auscultation bilaterally Cardio: COMMON NORMALS: regular rate, regular rhythm and No murmurs present (Cardio) RATE: regular rate RHYTHM: regular rhythm Extremity: COMMON NORMALS: normal to inspection and full ROM Neuro: COMMON NORMALS: patient oriented x3, moves all extremities and no focal motor deficits Psych: COMMON NORMALS: mental status grossly normal, Normal thought process present and cooperative THOUGHT PROCESS: Normal thought process present Skin: COMMON NORMALS: no rashes or lesions noted and no wounds GENERAL SKIN EXAM: no rashes or lesions noted Course Vital Signs: Vital signs: Vital Signs Pulse Rate 74 12/15/23 06:35 Respiratory Rate 18 12/15/23 06:35 Blood Pressure 131/82 12/15/23 06:35 Pulse Oximetry 98 12/15/23 06:35 Oxygen Delivery Me thod Room Air 12/15/23 06:[address] 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 Lab Data I reviewed the patient's lab results. 12/15/23 06:38 12/15/23 06:38 Laboratory Results WBC 7.67 10^3/uL (3.29-11.43) 12/15/23 06:38 RBC 4.94 10^6/uL (3.85-5.65) 12/15/23 06:38 Hgb 11.80 g/dL (11.27-16.99) 12/15/23 06:38 Hct 38.8 % (37-53) 12/15/23 06:38 MCV 78.5 fl (82-101) L 12/15/23 06:38 MCH 23.9 pg (27-33) L 12/15/23 06:38 MCHC 30.4 g/dL (30-55) 12/15/23 06:38 RDW 15.8 % (12.1-15.1) H 12/15/23 06:38 Plt Count 217 10^3/cmm (157-399) 12/15/23 06:38 MPV 10.5 fL (7.4-10.4) H 12/15/23 06:38 Neut % (Auto) 51.1 % 12/15/23 06:38 Lymph % (Auto) 31.9 % 12/15/23 06:38 [place] % (Auto) 12.4 % 12/15/23 06:38 Eos % (Auto) 3.5 % 12/15/23 06:38 Baso % (Auto) 0.7 % 12/15/23 06:38 Neut # (Auto) 3.92 10^3/uL (1.8-7.7) 12/15/23 06:38 Lymph # (Auto) 2.5 10^3/uL (0.8-4.8) 12/15/23 06:38 [place] # (Auto) 1.0 10^3/uL (0.2-0.9) H 12/15/23 06:38 Eos # (Auto) 0.3 10^3/uL (0.0-0.8) 12/15/23 06:38 Baso # (Auto) 0.1 10^3/uL (0.0-0.1) 12/15/23 06:38 Nucleated RBC % (auto) 0 % 12/15/23 06:38 Nucleated RBCs # 0.0 /100WBC 12/15/23 06:38 Sodium 137 mmol/L (136-145) 12/15/23 06:38 Potassium 4.0 mmol/L (3.5-5.1) 12/15/23 06:38 Chloride 97 mmol/L (98-107) L 12/15/23 06:38 Carbon Dioxide 28 mmol/L (22-29) 12/15/23 06:38 Anion Gap 16.0 (5-19) 12/15/23 06:38 BUN 15 mg/dL (6-20) 12/15/23 06:38 Creatinine 1.2 mg/dL (0.7-1.2) 12/15/23 06:38 GFR Calculation 64.9 mL/min (90-130) L 12/15/23 06:38 Glucose 284 mg/dL (65-115) H 12/15/23 06:38 POC Glucose 252 mg/dL (70-110) H 12/15/23 07:13 Calculated Osmolality 295 mOsm/kg (285-295) 12/15/23 06:38 Calcium 9.2 mg/dL (8.5-10.5) 12/15/23 06:38 Total Bilirubin 0.2 mg/dL (0.15-1.2) 12/15/23 06:38 AST 19 U/L (0-40) 12/15/23 06:38 ALT 20 U/L (0-41) 12/15/23 06:38 Alkaline Phosphatase 87 U/L (40-130) 12/15/23 06:38 Total Protein 7.6 g/dL (6.6-8.7) 12/15/23 06:38 Albumin 4.2 g/dL (3.5-5.2) 12/15/23 06:38 Globulin 3.4 g/dL (1.3-4.6) 12/15/23 06:38 No radiology studies performed this visit Discharge Plan Discharge Patient Disposition: Home Clinical Impression: Hyperglycemia Condition: Stable Prescriptions: No Action bupropion HCl [Wellbutrin XL] 150 mg tablet extended release 24 hr 150 mg PO QAM Qty: 30 2RF buspirone 10 mg tablet 20 mg PO TID Qty: 180 2RF haloperidol 2 mg tablet 2 mg PO BID Qty: 60 2RF hydroxyzine HCl 50 mg tablet 50 mg PO QID PRN (Reason: anxiety) Qty: 120 2RF quetiapine [Seroquel] 100 mg tablet 100 mg PO .HS Qty: 30 2RF vilazodone [Viibryd] 40 mg tablet 40 mg PO QAM Qty: 30 2RF colchicine 0.6 mg capsule 0.6 mg PO BID PRN (Reason: gout attack) Qty: 12 1RF Men's Multivitamin 400-20-300 mcg tablet PO DAILY famotidine 10 mg tablet 10 mg PO DAILY Linzess 72 mcg capsule 72 mcg PO .HS diclofenac sodium [Arthritis Pain (diclofenac)] 1 % gel 4 g topical QID Rx Instructions: apply to single knee, ankle, foot; for foot includes sole/toes/top of foot Farxiga 10 mg tablet See Rx Instructions .ROUTE .COMPLEX Qty: 90 1RF Dose Instruction: TAKE 1 TABLET BY MOUTH ONCE DAILY IN THE MORNING Rx Instructions: TAKE 1 TABLET BY MOUTH ONCE DAILY IN THE MORNING (DME) lancets [Accu-Chek Softclix Lancets] Misc See Rx Instructions .Route Qty: 100 0RF Rx Instructions: As directed metoprolol succinate 50 mg tablet extended release 24 hr See Rx Instructions .ROUTE .COMPLEX Qty: 90 0RF Dose Instruction: Take 1 tablet by mouth once daily Rx Instructions: Take 1 tablet by mouth once daily metformin 500 mg tablet extended release 24 hr See Rx Instructions .ROUTE .COMPLEX Qty: 90 0RF Dose Instruction: TAKE 1 TABLET BY MOUTH IN THE MORNING Rx Instructions: TAKE 1 TABLET BY MOUTH IN THE MORNING atorvastatin 20 mg tablet 20 mg PO DAILY 100 Days Qty: 100 0RF Rx Instructions: per insurance had to do 100 day supply cyclobenzaprine 5 mg tablet 5 mg PO TID PRN (Reason: muscle spasm) Qty: 30 2RF leflunomide 20 mg tablet 20 mg PO DAILY Qty: 30 3RF (DME) FreeStyle [place] 14 Day Sensor Kit See Rx Instructions .Route Qty: 1 0RF Rx Instructions: As directed (DME) FreeStyle [place] 14 Day [place] Misc See Rx Instructions .Route Qty: 1 0RF Rx Instructions: As directed (DME) FreeStyle [place] 14 Day [place] Misc See Rx Instructions .Route Qty: 1 6RF Rx Instructions: As directed Lantus Solostar U-100 Insulin 100 unit/mL (3 mL) insulin pen See Rx Instructions .ROUTE .COMPLEX Qty: 15 8RF Dose Instruction: INJECT 10 UNITS SUBCUTANEOUSLY ONCE DAILY Rx Instructions: INJECT 10 UNITS SUBCUTANEOUSLY ONCE DAILY Discharge Orders: Discharge ED (Routine); Ordered 12/15/23 Ordered By: Timothy Bello Referrals: Nilesh Reynolds FNP [Primary Care Provider] - Lisa Dueñas MD [Physician] - 4-7 days Discharge Diet: Advance as tolerated Discharge Activity: Resume usual activity Patient Instructions: Diabetic Hyperglycemia (ED) Coding Level of Care Code ED [employer] for [employer] Scott
[2023-12-15 06:43] LABS: Basophils # 0.1 10^3/uL (0.0-0.1); Basophils % 0.7 %; Eosinophils # 0.3 10^3/uL (0.0-0.8); Eosinophils % 3.5 %; Hematocrit 38.8 % (37-53); Lymphocytes # 2.5 10^3/uL (0.8-4.8); Lymphocytes % 31.9 %; Mean Corpuscular HGB Conc 30.4 g/dL (30-55); Mean Corpuscular Hemoglobin 23.9 pg (27-33); Mean Corpuscular Volume 78.5 fl (82-101); Mean Platelet Volume 10.5 fL (7.4-10.4); Monocytes % 12.4 %; Neutrophils # 3.92 10^3/uL (1.8-7.7); Neutrophils % 51.1 %; Nucleated Red Blood Cells % 0 %; Platelet Count 217 10^3/cmm (157-399); Red Blood Count 4.94 10^6/uL (3.85-5.65); Red Cell Distribution Width 15.8 % (12.1-15.1); White Blood Count 7.67 10^3/uL (3.29-11.43)
[2023-12-15] MEDS: sodium chloride 0.9% 1,000 ML 999 ML IV (06:55)
[2023-12-15 07:02] LABS: Alanine Aminotransferase 20 U/L (0-41); Albumin Level 4.2 g/dL (3.5-5.2); Alkaline Phosphatase 87 U/L (40-130); Aspartate Amino Transferase 19 U/L (0-40); Blood Urea Nitrogen 15 mg/dL (6-20); Calcium 9.2 mg/dL (8.5-10.5); Carbon Dioxide 28 mmol/L (22-29); Chloride 97 mmol/L (98-107); Globulin 3.4 g/dL (1.3-4.6); Glomerular Filtration Rate 64.9 mL/min (90-130); Glucose 284 mg/dL (65-115); Osmolality Calculated 295 mOsm/kg (285-295); Sodium 137 mmol/L (136-145); Total Bilirubin 0.2 mg/dL (0.15-1.2); Total Protein 7.6 g/dL (6.6-8.7)
[2023-12-15 07:18] LABS: Glucose Point of Care 252 mg/dL (70-110)
--- NOTE | 2023-12-15 07:21 | PC.NURSE ---
Blood glucose recheck: 252 via fingerstick @0583, Dr. Bello notified.
[2023-12-15 07:54] VITALS: BP 114/79; PULSE 68; RESP 18; O2SAT 97
--- NOTE | 2023-12-15 11:11 | DCPLANNER ---
Message was sent to Endo front office for Dr. Dueñas. Patient needs to see endo for hyperglycemia. Clinic to contact patient for appt. 12/15/23 at 11:11
== END 2023-12-15 08:02 | disposition home or self-care (01) ==
PROVIDERS: Emergency Provider Emergency Medicine; PCP Nurse Practitioner Family
DX: E11.65 Type 2 diabetes mellitus with hyperglycemia (principal); Z79.4 Long term (current) use of insulin; Z79.84 Long term (current) use of oral hypoglycemic drugs; F17.210 Nicotine dependence, cigarettes, uncomplicated; F17.220 Nicotine dependence, chewing tobacco, uncomplicated; E11.22 Type 2 diabetes mellitus with diabetic chronic kidney disease; I12.9 Hypertensive chronic kidney disease with stage 1 through stage 4 chronic kidney disease, or unspecified chronic kidney disease; N18.30 Chronic kidney disease, stage 3 unspecified; E78.5 Hyperlipidemia, unspecified
CPT/HCPCS: 36416; 80053; 82962; 85025; 99284; J7030

== ENCOUNTER → 2023-12-22 10:38 | Outpatient (BNVA) | payer MEDICARE, MEDICAID, SELFPAY | PROVIDERS: PCP Nurse Practitioner Family; Visit Provider Internal Medicine | DX: E11.65 Type 2 diabetes mellitus with hyperglycemia; E11.22 Type 2 diabetes mellitus with diabetic chronic kidney disease; E78.2 Mixed hyperlipidemia; Z79.84 Long term (current) use of oral hypoglycemic drugs; Z79.4 Long term (current) use of insulin | CPT/HCPCS: 36415; 80053; 84681; 86337; 86341; 99204 ==

== ENCOUNTER → 2024-02-07 13:25 | Outpatient (BNVA) | payer MEDICARE, MEDICAID, SELFPAY | PROVIDERS: PCP Nurse Practitioner Family; Visit Provider Internal Medicine Rheumatology | DX: Z79.899 Other long term (current) drug therapy (principal); Z71.85 Encounter for immunization safety counseling; N18.30 Chronic kidney disease, stage 3 unspecified; M06.041 Rheumatoid arthritis without rheumatoid factor, right hand; M06.042 Rheumatoid arthritis without rheumatoid factor, left hand | CPT/HCPCS: 36415; 80076; 82565; 85025; 86140; 99214 ==

== ENCOUNTER → 2024-06-19 08:45 | Outpatient (BNVA) | payer MEDICARE, MEDICAID, SELFPAY | PROVIDERS: PCP Nurse Practitioner Family; Visit Provider Internal Medicine | DX: Z53.09 Procedure and treatment not carried out because of other contraindication (principal) | CPT/HCPCS: 99204 ==

== ENCOUNTER → 2024-07-10 09:28 | Outpatient (BNVA) | payer MEDICARE, MEDICAID, SELFPAY | PROVIDERS: PCP Nurse Practitioner Family; Visit Provider Internal Medicine | DX: E11.22 Type 2 diabetes mellitus with diabetic chronic kidney disease (principal); E78.2 Mixed hyperlipidemia; E11.65 Type 2 diabetes mellitus with hyperglycemia; N18.30 Chronic kidney disease, stage 3 unspecified; Z79.4 Long term (current) use of insulin; Z79.84 Long term (current) use of oral hypoglycemic drugs | CPT/HCPCS: 99214 ==

== ENCOUNTER → 2024-07-24 09:52 | Outpatient (BNVA) | payer MEDICARE, MEDICAID, SELFPAY | PROVIDERS: PCP Nurse Practitioner Family; Visit Provider Internal Medicine | DX: E11.22 Type 2 diabetes mellitus with diabetic chronic kidney disease (principal); N18.30 Chronic kidney disease, stage 3 unspecified | CPT/HCPCS: 36415; 80053; 80061; 83036; 83721 ==

== ENCOUNTER 2024-08-02 14:20 | Outpatient (CLI) | payer MEDICARE, MEDICAID, SELFPAY ==
[2024-08-02 14:56] LABS: Creatinine Urine, Random 79 mg/dL (39-259); Microalbum Creatinine Ratio Ur 13 mg/dL (0-20); Microalbumin Random Urine 1 ug/dL (0-20)
== END 2024-08-02 14:21 | disposition home or self-care (01) ==
LOC: LAB 14:21
PROVIDERS: Internal Medicine; PCP Nurse Practitioner Family; Visit Provider Internal Medicine Rheumatology
DX: N18.30 Chronic kidney disease, stage 3 unspecified (principal); E11.22 Type 2 diabetes mellitus with diabetic chronic kidney disease
CPT/HCPCS: 82044

== ENCOUNTER → 2024-08-06 08:15 | Outpatient (BNVA) | payer MEDICAID, SELFPAY | PROVIDERS: PCP Nurse Practitioner Family; Visit Provider Internal Medicine | DX: E78.2 Mixed hyperlipidemia (principal); E11.22 Type 2 diabetes mellitus with diabetic chronic kidney disease; E11.65 Type 2 diabetes mellitus with hyperglycemia; Z79.4 Long term (current) use of insulin; Z79.84 Long term (current) use of oral hypoglycemic drugs | CPT/HCPCS: 99214 ==

== ENCOUNTER → 2024-11-13 10:25 | Outpatient (BNVA) | payer MEDICARE, MEDICAID, SELFPAY | PROVIDERS: PCP Nurse Practitioner Family; Visit Provider Internal Medicine Rheumatology | DX: Z79.899 Other long term (current) drug therapy (principal); M06.041 Rheumatoid arthritis without rheumatoid factor, right hand; M06.042 Rheumatoid arthritis without rheumatoid factor, left hand; Z71.85 Encounter for immunization safety counseling; N18.30 Chronic kidney disease, stage 3 unspecified | CPT/HCPCS: 36415; 80076; 82565; 85025; 85651; 86140; 99214 ==

== ENCOUNTER → 2025-01-09 11:13 | Outpatient (BNVA) | payer MEDICARE, MEDICAID, SELFPAY | PROVIDERS: PCP Nurse Practitioner Family; Visit Provider Nurse Practitioner Family | DX: E11.9 Type 2 diabetes mellitus without complications (principal) | CPT/HCPCS: 83036 ==

== ENCOUNTER → 2025-02-04 09:05 | Outpatient (BNVA) | payer MEDICARE, MEDICAID, SELFPAY | PROVIDERS: PCP Nurse Practitioner Family; Visit Provider Internal Medicine | DX: E11.22 Type 2 diabetes mellitus with diabetic chronic kidney disease (principal); E78.2 Mixed hyperlipidemia | CPT/HCPCS: 99214 ==

== ENCOUNTER → 2025-03-05 10:38 | Outpatient (BNVA) | payer MEDICARE, MEDICAID, SELFPAY | PROVIDERS: PCP Nurse Practitioner Family; Visit Provider Internal Medicine Rheumatology | DX: Z79.899 Other long term (current) drug therapy (principal); Z71.85 Encounter for immunization safety counseling; N18.30 Chronic kidney disease, stage 3 unspecified; M06.041 Rheumatoid arthritis without rheumatoid factor, right hand; M06.042 Rheumatoid arthritis without rheumatoid factor, left hand | CPT/HCPCS: 36415; 80076; 82565; 85025; 85651; 86140; 99214 ==

== ENCOUNTER → 2025-07-10 10:13 | Outpatient (BNVA) | payer MEDICARE, MEDICAID, OTHER, SELFPAY | PROVIDERS: PCP Registered Nurse; Visit Provider Registered Nurse | DX: E78.2 Mixed hyperlipidemia (principal); E11.22 Type 2 diabetes mellitus with diabetic chronic kidney disease; N18.30 Chronic kidney disease, stage 3 unspecified | CPT/HCPCS: 80053; 80061; 83036; 83721 ==

== ENCOUNTER → 2025-07-17 08:58 | Outpatient (BNVA) | payer MEDICARE, MEDICAID, SELFPAY | PROVIDERS: PCP Registered Nurse; Visit Provider Internal Medicine | DX: E11.65 Type 2 diabetes mellitus with hyperglycemia (principal); E78.2 Mixed hyperlipidemia; L73.1 Pseudofolliculitis barbae; Z79.4 Long term (current) use of insulin | CPT/HCPCS: 99214 ==

== ENCOUNTER → 2025-07-22 13:35 | Outpatient (BNVA) | payer MEDICARE, MEDICAID, SELFPAY | PROVIDERS: PCP Registered Nurse; Visit Provider Internal Medicine Rheumatology | DX: Z79.899 Other long term (current) drug therapy (principal); Z71.85 Encounter for immunization safety counseling; E11.65 Type 2 diabetes mellitus with hyperglycemia; E11.22 Type 2 diabetes mellitus with diabetic chronic kidney disease; N18.30 Chronic kidney disease, stage 3 unspecified; M06.041 Rheumatoid arthritis without rheumatoid factor, right hand; M06.042 Rheumatoid arthritis without rheumatoid factor, left hand; E11.42 Type 2 diabetes mellitus with diabetic polyneuropathy | CPT/HCPCS: 99214 ==

== ENCOUNTER → 2025-08-12 14:33 | Outpatient (BNVA) | payer MEDICARE, MEDICAID, SELFPAY | PROVIDERS: PCP Registered Nurse; Visit Provider Surgery | DX: R13.10 Dysphagia, unspecified (principal) | CPT/HCPCS: 99204 ==

== ENCOUNTER → 2025-08-14 10:42 | Outpatient (BNVA) | payer MEDICARE, MEDICAID, SELFPAY | PROVIDERS: PCP Registered Nurse; Visit Provider Podiatrist Foot & Ankle Surgery | DX: E11.8 Type 2 diabetes mellitus with unspecified complications (principal); R23.4 Changes in skin texture; L84 Corns and callosities; E11.42 Type 2 diabetes mellitus with diabetic polyneuropathy; Z79.4 Long term (current) use of insulin; Z79.84 Long term (current) use of oral hypoglycemic drugs | CPT/HCPCS: 11055; 11056; 99203 ==

== ENCOUNTER 2025-08-21 09:35 | Outpatient (CLI) | payer MEDICARE, MEDICAID, SELFPAY ==
--- NOTE | 2025-08-21 10:00 | FL_ITS ---
WS: [id number] Exam: FL barium swallow modifd [id number] Date/Time of Exam: 08/21/2025 9:45 AM Reason For Exam: Fluoroscopy time: 4min [id number] minutes # of spot films: Compared to prior study 01/12/2023. Modified barium swallow test was performed in conjunction with the speech therapy service. Oral pharyngeal phase of swallowing was normal. No aspiration or penetration was identified. There appears to be significant esophageal hypomotility with to and fro spasm observed during the test. The patient swallowed a barium tablet without difficulty however the tablet was retained in the midesophagus. The tablet was propelled in the stomach by ingestion of additional pudding consistency barium. FL/FL barium swallow modifd [id number] IMPRESSION: 1. No indication of aspiration or penetration. 2. Significant esophageal hypomotility and dysfunction. A conventional barium s wallow study is suggested for follow-up. A separate report with detailed recommendations will also follow from [place] [facility] [place].
== END 2025-08-21 09:36 | disposition home or self-care (01) ==
LOC: RAD 09:36
PROVIDERS: PCP Registered Nurse; Visit Provider Surgery
DX: R13.10 Dysphagia, unspecified (principal); K22.4 Dyskinesia of esophagus; J38.7 Other diseases of larynx
CPT/HCPCS: 74230; 92611

== ENCOUNTER 2025-09-01 07:44 | Outpatient (CLI) | payer MEDICARE, MEDICAID, SELFPAY ==
--- NOTE | 2025-09-01 08:30 | FL_ITS ---
WS: [id number] Exam: FL barium swallow [id number] Date/Time of Exam: 09/01/2025 8:14 AM Reason For Exam: Fluoroscopy time: 2min [id number] minutes # of spot films: Oropharyngeal phase of swallowing was normal. No aspiration or penetration. There is a smooth stricture of the cervical esophagus at about the C5 level with about 50% reduction in luminal diameter. There is also posterior extrinsic compression upon the upper thoracic esophagus that is apparently secondary to aberrant LEFT subclavian artery as identified on chest CT scan performed 01/22/2021. There is moderate tertiary spasm of the esophagus. No intrinsic esophageal mass is seen. No hiatal hernia or reflux noted. FL/FL barium swallow [id number] IMPRESSION: 1. Smooth stricture of the cervical esophagus at about the level of C5. About 5 0% reduction in luminal diameter. Endoscopy recommended for further work-up. 2. Posterior extrinsic compression of the upper thoracic esophagus secondary to aberrant LEFT subclavian artery as noted on previous CT scan of the chest. 3. Moderate tertiary spasm of the mid and lower esophagus.
== END 2025-09-01 07:45 | disposition home or self-care (01) ==
LOC: RAD 07:46
PROVIDERS: PCP Registered Nurse; Visit Provider Surgery
DX: K22.4 Dyskinesia of esophagus (principal); R93.89 Abnormal findings on diagnostic imaging of other specified body structures; K22.2 Esophageal obstruction; K22.89 Other specified disease of esophagus
CPT/HCPCS: 74220

== ENCOUNTER 2025-09-02 15:18 | Outpatient (CLI) | payer MEDICARE, MEDICAID, SELFPAY ==
[2025-09-02 16:22] LABS: Hematocrit 37.3 % (37-53); Hemoglobin 11.30 g/dL (11.27-16.99); Mean Corpuscular HGB Conc 30.3 g/dL (30-55); Mean Corpuscular Hemoglobin 23.4 pg (27-33); Mean Corpuscular Volume 77.4 fl (82-101); Nucleated Red Blood Cells % 0 %; Platelet Count 240 10^3/cmm (157-399); Red Blood Count 4.82 10^6/uL (3.85-5.65); White Blood Count 6.41 10^3/uL (3.29-11.43)
[2025-09-02 16:52] LABS: Alanine Aminotransferase 12 U/L (0-41); Albumin Level 4.2 g/dL (3.5-5.2); Alkaline Phosphatase 65 U/L (40-130); Anion Gap 14.5 (5-19); Aspartate Amino Transferase 29 U/L (0-40); Blood Urea Nitrogen 8 mg/dL (6-20); Calcium 9.2 mg/dL (8.5-10.5); Carbon Dioxide 27 mmol/L (22-29); Chloride 103 mmol/L (98-107); Free T4 Free Thyroxine 0.41 ng/dL (0.82-1.77); Globulin 3.1 g/dL (1.3-4.6); Glucose 110 mg/dL (65-115); Osmolality Calculated 289 mOsm/kg (285-295); Potassium 4.5 mmol/L (3.5-5.1); Sodium 140 mmol/L (136-145); Thyroid Stimulating Hormone 1.67 uIU/mL (0.27-4.20); Total Protein 7.3 g/dL (6.6-8.7)
[2025-09-02 17:32] LABS: Ferritin 12 ng/mL (30-400); Iron 78 ug/dL (59-158); Total Iron Binding Capacity 395 mcg/dl; Unsaturated Iron Binding 317 ug/dL (112-347)
[2025-09-02 17:42] LABS: Vitamin B12 1349 pg/mL (232-1245)
== END 2025-09-02 15:19 | disposition home or self-care (01) ==
LOC: LAB 15:19
PROVIDERS: PCP Registered Nurse; Visit Provider Nurse Practitioner Family
DX: L29.89 Other pruritus (principal); E07.9 Disorder of thyroid, unspecified
CPT/HCPCS: 36415; 80053; 82607; 82728; 82746; 83540; 83550; 84439; 84443; 85025; 87902

== ENCOUNTER 2025-09-25 06:46 | Day surgery (SDC) | payer MEDICARE, MEDICAID, SELFPAY ==
[2025-09-25 07:11] VITALS: BP 131/92; PULSE 78; RESP 18; TEMP 36.4; O2SAT 93; BMI 26.3
--- NOTE | 2025-09-25 07:29 | W.PM.OPSFHP ---
Same Day Surgery H&P Indication for Procedure/HPI DATE OF PROCEDURE: September 25, 2025 CHIEF COMPLAINT/INDICATIONFOR SURGICAL PROCEDURE: dysphagia, esophageal stricture PREOP DIAGNOSIS: dysphagia and esophageal stricture PLANNED PROCEDURE: Operation Date: 09/25/25 09:00 Proposed Procedures p EGD Dilation W/ Balloon 35405 R13.10(Not Applicable) - Raman Carlisle MD Medications/Allergies* Home Medications ?Medication ?Instructions ?Recorded ?Confirmed ?Type linaclotide 72 mcg capsule 72 mcg PO .HS 08/14/23 09/24/25 History (Linzess) diclofenac sodium 1 % topical gel 4 g topical QID PRN arth 11/01/23 09/24/25 History (Arthritis Pain (diclofenac)) dexlansoprazole 60 mg 60 mg PO DAILY 09/04/25 09/24/25 History capsule,biphase delayed release famotidine 40 mg tablet 40 mg PO BEDTIME 09/04/25 09/24/25 History haloperidol 5 mg tablet 5 mg PO BID PRN Anxiety 09/04/25 09/25/25 History insulin glargine 100 unit/mL (3 40 unit SUBCUT BID PRN 09/04/25 09/24/25 History mL) subcutaneous pen (Lantus Hyperglycemia Solostar U-100 Insulin) insulin lispro 100 unit/mL 2 unit SUBCUT TID PRN Hyperglycemia 09/04/25 09/24/25 History subcutaneous pen (Humalog KwikPen (U-100) Insulin) pregabalin 75 mg capsule (Lyrica) 150 mg PO BEDTIME 09/04/25 09/24/25 History cyclobenzaprine 5 mg tablet 5 mg PO TID PRN Spasms 09/24/25 09/24/25 History dapagliflozin propanediol 10 mg 10 mg PO DAILY 09/24/25 09/24/25 History tablet (Farxiga) metoprolol succinate 50 mg 50 mg PO DAILY 09/24/25 09/24/25 History tablet,extended release 24 hr Allergies/Adverse Reactions Allergy/AdvReac Type Severity Reaction Status Date / Time adhesive tape Allergy Severe rash Verified 09/24/25 15:38 Sulfa (Sulfonamide Allergy Severe unknown Verified 09/24/25 15:38 Antibiotics) tramadol Allergy Severe itch Verified 09/24/25 15:38 acetaminophen (From Tylenol) AdvReac Severe ALGY-Swell Verified 09/24/25 15:38 Lip/Tongue/Throat Current Medications: Generic Name Dose Route Start Last Admin Trade Name Freq PRN Reason Stop Dose Admin Sodium Chloride 1,000 mls @ 15 mls/hr 09/25/25 06:52 09/25/25 07:20 Sodium Chloride 0.9% IV 09/26/25 06:51 15 mls/hr .Q24H PRN Administration COLONOSCOPY FLUIDS Pertinent History/Comorbid Conditions* Medical History (Updated 09/24/25 @ 15:57 by MIKEY Ellis) History of esophageal dilatation Seronegative rheumatoid arthritis of both hands Hyperglycemia Jaclyn infection Trichotillomania CKD (chronic kidney disease) stage 3, GFR 30-59 ml/min Diabetes mellitus type 2, uncontrolled Immunization counseling High risk medication use Inflammatory arthritis Psychiatric care Asthma Pneumothorax Staphylococcal infection of skin Seasonal allergies Angina decubitus History of hepatitis Peptic ulcer disease Hematuria Chest pain Carpal tunnel syndrome Tobacco use Hypertension GERD (gastroesophageal reflux disease) Chronic pain syndrome Hyperlipidemia Irritable bowel syndrome ADD (attention deficit disorder) Type 2 diabetes mellitus Surgical History (Updated 12/21/23 @ 13:47 by MIKEY Ellis) Status post cervical spinal fusion H/O chest tube placement H/O wrist surgery R History of carpal tunnel surgery L History of back surgery H/O neck surgery Family History (Updated 05/09/20 @ 23:05 by Archie Espinosa MD) Adopted Social History Smoking and tobacco/nicotine status: current every day tobacco/nicotine user cigarettes Packs smoked per day: 0.1 and smokeless tobacco Smokeless tobacco user: chewing tobacco and snuff Smokeless tobacco details: 1 can/ 2 days Quit status (tobacco/nicotine): not considering quitting Second hand smoke exposure: Yes Alcohol intake: former Year of sobriety/quit date alcohol: 2021 Substance/Drug Use: former Date of last use: Former occasional marijuana. Currently occ CBD oil. Lives independently: Yes Household members: spouse Marital status: Current occupational status: unemployed Do you think of yourself as: Straight/Heterosexual Current gender identity: Male Pertinent Exam Findings alert, oriented x 3 and clear to auscultation bilaterally Recommendations Surgery/Procedure today Coding Level of Care Code Acute Code for Chg Fwd
--- NOTE | 2025-09-25 07:30 | ANES.PREANE2 ---
Pre-Anesthetic Assessment Height/Weight: Height 1.7 m Weight 76.204 kg Temp Pulse Resp BP Pulse Ox O2 Del Method 97.5 F L 78 18 131/92 93 Room Air 09/25/25 07:11 09/25/25 07:11 09/25/25 07:11 09/25/25 07:11 09/25/25 07:11 09/25/25 07:11 Preop Diagnosis: dysphagia and esophageal stricture Operation Date: 09/25/25 09:00 Proposed Procedures p EGD Dilation W/ Balloon 50226 R13.10(Not Applicable) - Raman Carlisle MD Familial anesthetic complications: none Last intake: Intake Last Liquid Date 09/24/25 Last Liquid Time 21:00 Last Solid Date 09/24/25 Last Solid Time 21:00 Social Tobacco CBD oil Airway Submandibular: within normal limits Cervical ROM: within normal limits Mallampati: Class I Comments: Comments: endentulous Pulmonary Asthma CV/HEM Hypertension Chronic Renal Insufficiency Hepatic Hx Hepatitis GI Gastroesophageal Reflux Disease Metabolic Diabetes Mellitus and Hyperlipidemia [facility] [place] None reported Neuropsych Anxiety, Bipolar and Depression Medications/Allergies Home Medications ?Medication ?Instructions ?Recorded ?Confirmed ?Last Taken ?Type lancets (Accu-Chek Softclix #100 ea 05/06/21 09/24/25 Unknown Rx Lancets) linaclotide 72 mcg capsule 72 mcg PO .HS 08/14/23 09/24/25 09/24/25 History (Linzess) diclofenac sodium 1 % topical gel 4 g topical QID PRN arth 11/01/23 09/24/25 Unknown History (Arthritis Pain (diclofenac)) pen needle, diabetic 31 gauge x #100 ea 02/13/24 09/24/25 Unknown Rx 3/16 (TechLITE Pen Needle) blood-glucose,packaging line attendant,cont #1 ea 07/24/24 09/24/25 Unknown Rx (Dexcom G7 Singe Winder) metformin 500 mg tablet,extended 500 mg PO BID #180 tabs 01/09/25 09/24/25 09/04/25 Rx release 24 hr buspirone 10 mg tablet 20 mg (2 x 10 mg) PO TID #180 tabs 04/02/25 09/24/25 09/25/25 Rx hydroxyzine HCl 50 mg tablet 50 mg PO QID PRN anxiety #120 tabs 04/02/25 09/24/25 09/24/25 Rx quetiapine 100 mg tablet (Seroquel) 100 mg PO .HS #30 tabs 04/02/25 09/24/25 09/24/25 Rx vilazodone 40 mg tablet (Viibryd) 40 mg PO QAM #30 tabs 04/02/25 09/24/25 09/25/25 Rx blood-glucose sensor (Dexcom G7 #9 ea 07/17/25 09/24/25 Unknown Rx Sensor device) adalimumab 40 mg/0.4 mL 40 mg (0.4 mL) SUBCUT Q14D #2 ea 07/22/25 09/24/25 09/04/25 Rx subcutaneous pen kit (Humira(CF) Pen) leflunomide 20 mg tablet 20 mg PO DAILY #90 tabs 07/22/25 09/24/25 09/25/25 Rx prednisone 10 mg tablet See Rx Instructions PO .COMPLEX 07/22/25 09/24/25 Unknown Rx PRN joint pain #30 tabs mupirocin 2 % topical ointment 1 applic topical BID 7 days #22 08/12/25 09/24/25 09/04/25 Rx (Centany) grams dexlansoprazole 60 mg 60 mg PO DAILY 09/04/25 09/24/25 09/25/25 History capsule,biphase delayed release famotidine 40 mg tablet 40 mg PO BEDTIME 09/04/25 09/24/25 09/25/25 History haloperidol 5 mg tablet 5 mg PO BID PRN Anxiety 09/04/25 09/25/25 09/25/25 History insulin glargine 100 unit/mL (3 40 unit SUBCUT BID PRN 09/04/25 09/24/25 Unknown History mL) subcutaneous pen (Lantus Hyperglycemia Solostar U-100 Insulin) insulin lispro 100 unit/mL 2 unit SUBCUT TID PRN Hyperglycemia 09/04/25 09/24/25 Unknown History subcutaneous pen (Humalog KwikPen (U-100) Insulin) pregabalin 75 mg capsule (Lyrica) 150 mg PO BEDTIME 09/04/25 09/24/25 09/25/25 History amoxicillin 875 mg-potassium 1 tab PO BID #14 tabs 09/24/25 09/25/25 09/24/25 Rx clavulanate 125 mg tablet cyclobenzaprine 5 mg tablet 5 mg PO TID PRN Spasms 09/24/25 09/24/25 09/22/25 History dapagliflozin propanediol 10 mg 10 mg PO DAILY 09/24/25 09/24/25 09/24/25 History tablet (Farxiga) metoprolol succinate 50 mg 50 mg PO DAILY 09/24/25 09/24/25 09/25/25 History tablet,extended release 24 hr Allergies Allergy/AdvReac Type Severity Reaction Status Date / Time adhesive tape Allergy Severe rash Verified 09/24/25 15:38 Sulfa (Sulfonamide Allergy Severe unknown Verified 09/24/25 15:38 Antibiotics) tramadol Allergy Severe itch Verified 09/24/25 15:38 acetaminophen (From Tylenol) AdvReac Severe ALGY-Swell Verified 09/24/25 15:38 Lip/Tongue/Throat Current Medications Generic Name Dose Route Start Last Admin Trade Name Freq PRN Reason Stop Dose Admin Sodium Chloride 1,000 mls @ 15 mls/hr 09/25/25 06:52 09/25/25 07:20 Sodium Chloride 0.9% IV 09/26/25 06:51 15 mls/hr .Q24H PRN Administration COLONOSCOPY FLUIDS PFSH Anesthesia Medical History (Updated 09/24/25 @ 15:57 by MIKEY Ellis) History of esophageal dilatation Seronegative rheumatoid arthritis of both hands Hyperglycemia Jaclyn infection Trichotillomania CKD (chronic kidney disease) stage 3, GFR 30-59 ml/min Diabetes mellitus type 2, uncontrolled Immunization counseling High risk medication use Inflammatory arthritis Psychiatric care Asthma Pneumothorax Staphylococcal infection of skin Seasonal allergies Angina decubitus History of hepatitis Peptic ulcer disease Hematuria Chest pain Carpal tunnel syndrome Tobacco use Hypertension GERD (gastroesophageal reflux disease) Chronic pain syndrome Hyperlipidemia Irritable bowel syndrome ADD (attention deficit disorder) Type 2 diabetes mellitus Surgical History Status post cervical spinal fusion H/O chest tube placement H/O wrist surgery R History of carpal tunnel surgery L History of back surgery H/O neck surgery Family History Family/Other No problems noted. Other Adopted Social History Smoking and tobacco/nicotine status: current every day tobacco/nicotine user cigarettes Packs smoked per day: 0.1 and smokeless tobacco Smokeless tobacco user: chewing tobacco and snuff Smokeless tobacco details: 1 can/ 2 days Quit status (tobacco/nicotine): not considering quitting Second hand smoke exposure: Yes Alcohol intake: former Year of sobriety/quit date alcohol: 2021 Substance/Drug Use: former Date of last use: Former occasional marijuana. Currently occ CBD oil. Lives independently: Yes Household members: spouse Marital status: Current occupational status: unemployed Do you think of yourself as: Straight/Heterosexual Current gender identity: Male Data Anesthesia Cardiac Studies: Echocardiogram Ultrasound 05/11/20
--- NOTE | 2025-09-25 08:07 | ANES.PREANE2 ---
Pre-Anesthetic Assessment Height/Weight: Height 1.7 m Weight 76.204 kg Temp Pulse Resp BP Pulse Ox O2 Del Method 97.5 F L 78 18 131/92 93 Room Air 09/25/25 07:11 09/25/25 07:11 09/25/25 07:11 09/25/25 07:11 09/25/25 07:11 09/25/25 07:11 Preop Diagnosis: dysphagia and esophageal stricture Operation Date: 09/25/25 09:00 Proposed Procedures p EGD Dilation W/ Balloon 70741 R13.10(Not Applicable) - Raman Carlisle MD Familial anesthetic complications: NOne Was Beta Gucci taken within 24 hours: N/A Was Clonidine taken within 24 hours: N/A Last intake: Intake Last Liquid Date 09/24/25 Last Liquid Time 21:00 Last Solid Date 09/24/25 Last Solid Time 21:00 Social No alcohol and No tobacco vapes Exam alert, oriented x 3, clear to auscultation bilaterally and regular rate & rhythm Airway Mallampati: Class II Dentition: other (none) CV/HEM Stable Angina Chronic Renal Insufficiency GI Gastroesophageal Reflux Disease gastroparesis- no active nausea today Metabolic Diabetes Mellitus Neuropsych Anxiety Anesthetic Plan ASA status: 3 Anesthesia: MAC Risk of > 500 ml blood loss (7ml/kg in children): No Medications/Allergies Home Medications ?Medication ?Instructions ?Recorded ?Confirmed ?Last Taken ?Type lancets (Accu-Chek Softclix #100 ea 05/06/21 09/24/25 Unknown Rx Lancets) linaclotide 72 mcg capsule 72 mcg PO .HS 08/14/23 09/24/25 09/24/25 History (Linzess) diclofenac sodium 1 % topical gel 4 g topical QID PRN arth 11/01/23 09/24/25 Unknown History (Arthritis Pain (diclofenac)) pen needle, diabetic 31 gauge x #100 ea 02/13/24 09/24/25 Unknown Rx 3/16 (TechLITE Pen Needle) blood-glucose,shroudman,cont #1 ea 07/24/24 09/24/25 Unknown Rx (Dexcom G7 Cuff Cutter) metformin 500 mg tablet,extended 500 mg PO BID #180 tabs 01/09/25 09/24/25 09/04/25 Rx release 24 hr buspirone 10 mg tablet 20 mg (2 x 10 mg) PO TID #180 tabs 04/02/25 09/24/25 09/25/25 Rx hydroxyzine HCl 50 mg tablet 50 mg PO QID PRN anxiety #120 tabs 04/02/25 09/24/25 09/24/25 Rx quetiapine 100 mg tablet (Seroquel) 100 mg PO .HS #30 tabs 04/02/25 09/24/25 09/24/25 Rx vilazodone 40 mg tablet (Viibryd) 40 mg PO QAM #30 tabs 04/02/25 09/24/25 09/25/25 Rx blood-glucose sensor (Dexcom G7 #9 ea 07/17/25 09/24/25 Unknown Rx Sensor device) adalimumab 40 mg/0.4 mL 40 mg (0.4 mL) SUBCUT Q14D #2 ea 07/22/25 09/24/25 09/04/25 Rx subcutaneous pen kit (Humira(CF) Pen) leflunomide 20 mg tablet 20 mg PO DAILY #90 tabs 07/22/25 09/24/25 09/25/25 Rx prednisone 10 mg tablet See Rx Instructions PO .COMPLEX 07/22/25 09/24/25 Unknown Rx PRN joint pain #30 tabs mupirocin 2 % topical ointment 1 applic topical BID 7 days #22 08/12/25 09/24/25 09/04/25 Rx (Centany) grams dexlansoprazole 60 mg 60 mg PO DAILY 09/04/25 09/24/25 09/25/25 History capsule,biphase delayed release famotidine 40 mg tablet 40 mg PO BEDTIME 09/04/25 09/24/25 09/25/25 History haloperidol 5 mg tablet 5 mg PO BID PRN Anxiety 09/04/25 09/25/25 09/25/25 History insulin glargine 100 unit/mL (3 40 unit SUBCUT BID PRN 09/04/25 09/24/25 Unknown History mL) subcutaneous pen (Lantus Hyperglycemia Solostar U-100 Insulin) insulin lispro 100 unit/mL 2 unit SUBCUT TID PRN Hyperglycemia 09/04/25 09/24/25 Unknown History subcutaneous pen (Humalog KwikPen (U-100) Insulin) pregabalin 75 mg capsule (Lyrica) 150 mg PO BEDTIME 09/04/25 09/24/25 09/25/25 History amoxicillin 875 mg-potassium 1 tab PO BID #14 tabs 09/24/25 09/25/25 09/24/25 Rx clavulanate 125 mg tablet cyclobenzaprine 5 mg tablet 5 mg PO TID PRN Spasms 09/24/25 09/24/25 09/22/25 History dapagliflozin propanediol 10 mg 10 mg PO DAILY 09/24/25 09/24/25 09/24/25 History tablet (Farxiga) metoprolol succinate 50 mg 50 mg PO DAILY 09/24/25 09/24/25 09/25/25 History tablet,extended release 24 hr Allergies Allergy/AdvReac Type Severity Reaction Status Date / Time adhesive tape Allergy Severe rash Verified 09/24/25 15:38 Sulfa (Sulfonamide Allergy Severe unknown Verified 09/24/25 15:38 Antibiotics) tramadol Allergy Severe itch Verified 09/24/25 15:38 acetaminophen (From Tylenol) AdvReac Severe ALGY-Swell Verified 09/24/25 15:38 Lip/Tongue/Throat Current Medications Generic Name Dose Route Start Last Admin Trade Name Freq PRN Reason Stop Dose Admin Sodium Chloride 1,000 mls @ 15 mls/hr 09/25/25 06:52 09/25/25 07:20 Sodium Chloride 0.9% IV 09/26/25 06:51 15 mls/hr .Q24H PRN Administration COLONOSCOPY FLUIDS PFSH Anesthesia Medical History (Updated 09/24/25 @ 15:57 by MIKEY Ellis) History of esophageal dilatation Seronegative rheumatoid arthritis of both hands Hyperglycemia Jaclyn infection Trichotillomania CKD (chronic kidney disease) stage 3, GFR 30-59 ml/min Diabetes mellitus type 2, uncontrolled Immunization counseling High risk medication use Inflammatory arthritis Psychiatric care Asthma Pneumothorax Staphylococcal infection of skin Seasonal allergies Angina decubitus History of hepatitis Peptic ulcer disease Hematuria Chest pain Carpal tunnel syndrome Tobacco use Hypertension GERD (gastroesophageal reflux disease) Chronic pain syndrome Hyperlipidemia Irritable bowel syndrome ADD (attention deficit disorder) Type 2 diabetes mellitus Surgical History Status post cervical spinal fusion H/O chest tube placement H/O wrist surgery R History of carpal tunnel surgery L History of back surgery H/O neck surgery Family History Family/Other No problems noted. Other Adopted Social History Smoking and tobacco/nicotine status: current every day tobacco/nicotine user cigarettes Packs smoked per day: 0.1 and smokeless tobacco Smokeless tobacco user: chewing tobacco and snuff Smokeless tobacco details: 1 can/ 2 days Quit status (tobacco/nicotine): not considering quitting Second hand smoke exposure: Yes Alcohol intake: former Year of sobriety/quit date alcohol: 2021 Substance/Drug Use: former Date of last use: Former occasional marijuana. Currently occ CBD oil. Lives independently: Yes Household members: spouse Marital status: Current occupational status: unemployed Do you think of yourself as: Straight/Heterosexual Current gender identity: Male Data Anesthesia Cardiac Studies: Echocardiogram Ultrasound 05/11/20
[2025-09-25 09:02] VITALS: BP 115/62; PULSE 87; RESP 16; TEMP 36.1; O2SAT 96
[2025-09-25 09:10] VITALS: BP 117/83; PULSE 71; RESP 16; O2SAT 98
--- NOTE | 2025-09-25 15:30 | ANE.PACU2 ---
Inpatient post-anesthesia follow up: Airway intact: Yes Vital signs: Temperature 97.0 F Pulse Rate 71 Respiratory Rate 16 Blood Pressure 117/83 Pulse Oximetry 98 Oxygen Delivery Me thod Room Air Oxygen Flow Rate Fraction of Inspir ed Oxygen Hydration adequate: Yes Nausea and vomiting: No Pain level: 1 Mental status: Baseline
== END 2025-09-25 09:50 | disposition home or self-care (01) ==
PROVIDERS: PCP Registered Nurse; Visit Provider Surgery
DX: R13.10 Dysphagia, unspecified (principal); K22.2 Esophageal obstruction; K21.00 Gastro-esophageal reflux disease with esophagitis, without bleeding; E11.22 Type 2 diabetes mellitus with diabetic chronic kidney disease; I12.9 Hypertensive chronic kidney disease with stage 1 through stage 4 chronic kidney disease, or unspecified chronic kidney disease; N18.30 Chronic kidney disease, stage 3 unspecified; K27.9 Peptic ulcer, site unspecified, unspecified as acute or chronic, without hemorrhage or perforation; K21.9 Gastro-esophageal reflux disease without esophagitis; E78.5 Hyperlipidemia, unspecified; J45.909 Unspecified asthma, uncomplicated; F17.210 Nicotine dependence, cigarettes, uncomplicated; F17.220 Nicotine dependence, chewing tobacco, uncomplicated; F41.9 Anxiety disorder, unspecified; Z79.84 Long term (current) use of oral hypoglycemic drugs; Z79.4 Long term (current) use of insulin
CPT/HCPCS: 36416; 43249; 82962; 88305; J2704; J3490; J7030; J9999

== ENCOUNTER → 2025-10-07 08:57 | Outpatient (BNVA) | payer MEDICARE, MEDICAID, SELFPAY | PROVIDERS: PCP Registered Nurse; Visit Provider Surgery | DX: Z51.89 Encounter for other specified aftercare (principal); R03.0 Elevated blood-pressure reading, without diagnosis of hypertension | CPT/HCPCS: 99213 ==

== ENCOUNTER 2025-10-13 11:30 | Emergency (ER) | payer MEDICARE, MEDICAID, SELFPAY ==
[2025-10-13 11:36] VITALS: BP 117/74; PULSE 83; RESP 16; TEMP 36.7; O2SAT 95
--- NOTE | 2025-10-13 11:37 | CT_ITS ---
WS: [id number] CT HEAD NONCONTRAST HISTORY: Symptoms of acute stroke TECHNIQUE: Contiguous axial imaging performed through the brain. Bone and soft tissue windows. Sagittal and coronal reformats reviewed. All CT scans at [facility] use at least one of these dose optimization techniques: automated exposure control; mA and/or kV adjustment per patient size (includes targeted exams where dose is matched to clinical indication); or iterative reconstruction. DLP: 1108.08 mGy COMPARISON: 10/09/2023 No acute intracranial hemorrhage, midline shift or mass effect. Minimal atrophy and small vessel disease. No acute infarct. Ventricles: Normal size with no hydrocephalus. No inferior displacement of cerebellar tonsils. Paranasal sinuses: As visualized are clear. Mastoid air cells: Well pneumatized. Calvarium and scalp: Skull is intact with no soft tissue edema or swelling. CT/CT head thrombolytic 68831 IMPRESSION: 1. No acute intracranial hemorrhage or edema. 2. Very minimal atrophy and small vessel disease. Stable since 10/09/2023. Notified Loyd Temple DO at 10/13/2025 11:51 AM.
--- OUTSIDE RECORDS SUMMARY | 2025-10-13 11:38 | XMS_ITS | Encounter Summary ---
Author Organization [facility] Address [address] [place] [address] Care Team Providers Care Senior J2Ee Developer Name Role Phone Usha López MD Primary Care Provider [phone] Encounter Details Date Type Department Care Team (Late st Contact Info) Description 04/03/2018 Ancillary Orders [facility] Orthopedics - Orthopedic [facility] [address] [place] [address] [facility], External Provider [address] [place] [address] Pain Social History Tobacco Use Types Packs/Day Years Used Date Smoking Tobacco: Never Smokeless Tobacco: Current Alcohol Use Standard Drinks/Week Comments Not Asked 0 (1 standard drink = 0.6 oz pur e alcohol) Sex and Gender Information Value Date Recorded Sex Assigned at Not on file Legal Sex Male 3:56 AM MEDICAL TECHNOLOGIST Gender Identity Not on file Sexual Orientation Not on file documented as of this encounter Plan of Treatment Not on file documented as of this encounter Results * XR PRIOR STUDY (10/03/2017 12:10 PM MEDICAL TECHNOLOGIST) Narrative 04/03/2018 8:29 AM CDT This exam was auto finalized to allow images to be scanned to PACS. External Provider [facility] DIAGNOSTIC IMAGING ORDERAB LES Final Result * MRI PRIOR STUDY (10/03/2017 11:50 AM MEDICAL TECHNOLOGIST) Narrative 04/03/2018 8:29 AM CDT This exam was auto finalized to allow images to be scanned to PACS. us External Provider [facility] MR ORDERABLES Final Resu lt documented in this encounter Visit Diagnoses Diagnosis Pain Generalized pain Pain Generalized pain Pain Generalized pain documented in this encounter Additional Health Concerns Infection Onset Date Last Indicated Resolved Time R/O COVID-19 09/28/2020 09/28/2020 09/28/2020 9:22 AM MEDICAL TECHNOLOGIST documented as of this encounter Care Teams Senior J2Ee Developer Relationship Specialty Start Date End Date Usha López MD PCP - General Family Practice 09/28/20 documented as of this encounter
--- OUTSIDE RECORDS SUMMARY | 2025-10-13 11:38 | XMS_ITS | Encounter Summary ---
Author Organization [facility] Address [address] [place] [address] Phone Care Team Providers Care Grain Processor Name Role Phone Ofe Paula NP Primary Care Provider Encounter Details Date Type Department Care Team (Late st Contact Info) Description 06/25/2020 Orders Only [facility] [address] [place] [id number] Jesus Madison MD [address] [place] [address] Chronic kidney disease, stage 3 (moderate) ([facility]) Social History Tobacco Use Types Packs/Day Years Used Date Smoking Tobacco: Never Assessed Sex and Gender Information Value Date Recorded Sex Assigned at Not on file Legal Sex Male 8:01 PM EDT Gender Identity Not on file Sexual Orientation Not on file documented as of this encounter Plan of Treatment Not on file documented as of this encounter Visit Diagnoses Diagnosis Chronic kidney disease, stage 3 (moderate) documented in this encounter Care Teams Grain Processor Relationship Specialty Start Date End Date Ofe Paula NP [address] [place] [address] PCP - General Family Medicine 01/07/21 documented as of this encounter
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
--- OUTSIDE RECORDS SUMMARY | 2025-10-13 11:39 | XMS_ITS | Encounter Summary ---
Author Organization [facility] Address [address] [place] [address] Care Team Providers Care Adolescent Psychiatrist Name Role Phone Usha López MD Primary Care Provider [phone] Encounter Details Date Type Department Care Team (Latest Contact Info) Description 08/06/2010 Outpatient Historical [facility] [address] [place] [address] Swapnil Dodd Migraine NOS/not intrcbl (Primary Dx); Unspecified hepatitis Social History Tobacco Use Types Packs/Day Years Used Date Smoking Tobacco: Never Assessed Sex and Gender Information Value Date Recorded Sex Assigned at Not on file Legal Sex Male 3:56 AM TAKE UP OPERATOR Gender Identity Not on file Sexual Orientation Not on file documented as of this encounter Plan of Treatment Not on file documented as of this encounter Visit Diagnoses Diagnosis Migraine, unspecified, without mention of intractable migraine without mention of status migrainosus- Primary Hepatitis, unspecified documented in this encounter Additional Health Concerns Infection Onset Date Last Indicated Resolved Time R/O COVID-19 09/28/2020 09/28/2020 09/28/2020 9:22 AM TAKE UP OPERATOR documented as of this encounter Care Teams Adolescent Psychiatrist Relationship Specialty Start Date End Date Usha López MD PCP - General Family Practice 09/28/20 documented as of this encounter
--- OUTSIDE RECORDS SUMMARY | 2025-10-13 11:39 | XMS_ITS | Encounter Summary ---
Author Organization [facility] Address [address] [place] [address] Care Team Providers Care Wire Drawing Setter Name Role Phone Usha López MD Primary Care Provider [phone] Encounter Details Date Type Department Care Team (Late st Contact Info) Description 08/25/2006 Outpatient Historical [facility] CANCELLED ADMISSION Hung Lay MD NO ADDRESS ON FILE Social History Tobacco Use Types Packs/Day Years Used Date Smoking Tobacco: Never Assessed Sex and Gender Information Value Date Recorded Sex Assigned at Not on file Legal Sex Male 3:56 AM LINE DIRECTOR Gender Identity Not on file Sexual Orientation Not on file documented as of this encounter Plan of Treatment Not on file documented as of this encounter Visit Diagnoses Not on filedocumented in this encounter Additional Health Concerns Infection Onset Date Last Indicated Resolved Time R/O COVID-19 09/28/2020 09/28/2020 09/28/2020 9:22 AM LINE DIRECTOR documented as of this encounter Care Teams Wire Drawing Setter Relationship Specialty Start Date End Date Usha López MD PCP - General Family Practice 09/28/20 documented as of this encounter
--- OUTSIDE RECORDS SUMMARY | 2025-10-13 11:39 | XMS_ITS | Encounter Summary ---
Author Organization [facility] Address [address] [place] [address] Care Team Providers Care Midwife Name Role Phone Usha López MD Primary Care Provider [phone] Encounter Details Date Type Department Care Team (Latest Contact Info) Description 12/28/2000 Outpatient Historical [facility] Bo Mccoy DO NO ADDRESS ON FILE Lumbago (Primary Dx); Sciatica Social History Tobacco Use Types Packs/Day Years Used Date Smoking Tobacco: Never Assessed Sex and Gender Information Value Date Recorded Sex Assigned at Not on file Legal Sex Male 3:56 AM PILEDRIVER CARPENTER Gender Identity Not on file Sexual Orientation Not on file documented as of this encounter Plan of Treatment Not on file documented as of this encounter Visit Diagnoses Diagnosis Lumbago- Primary Sciatica documented in this encounter Additional Health Concerns Infection Onset Date Last Indicated Resolved Time R/O COVID-19 09/28/2020 09/28/2020 09/28/2020 9:22 AM PILEDRIVER CARPENTER documented as of this encounter Care Teams Midwife Relationship Specialty Start Date End Date Usha López MD PCP - General Family Practice 09/28/20 documented as of this encounter
--- OUTSIDE RECORDS SUMMARY | 2025-10-13 11:39 | XMS_ITS | Encounter Summary ---
Author Organization [facility] Address [address] [place] [address] Care Team Providers Care Level Designer Name Role Phone Usha López MD Primary Care Provider [phone] Encounter Details Date Type Department Care Team (Late st Contact Info) Description 08/18/2006 Outpatient Historical [facility] Gen Spec Surg [place] [address] [place] [address] Hung Lay MD NO ADDRESS ON FILE Abdominal Pain, Unspecified Site (Primary Dx) Social History Tobacco Use Types Packs/Day Years Used Date Smoking Tobacco: Never Assessed Sex and Gender Information Value Date Recorded Sex Assigned at Not on file Legal Sex Male 3:56 AM FASHION EDITOR Gender Identity Not on file Sexual Orientation Not on file documented as of this encounter Plan of Treatment Not on file documented as of this encounter Visit Diagnoses Diagnosis Abdominal pain, unspecified site- Primary documented in this encounter Additional Health Concerns Infection Onset Date Last Indicated Resolved Time R/O COVID-19 09/28/2020 09/28/2020 09/28/2020 9:22 AM FASHION EDITOR documented as of this encounter Care Teams Level Designer Relationship Specialty Start Date End Date Usha López MD PCP - General Family Practice 09/28/20 documented as of this encounter
--- OUTSIDE RECORDS SUMMARY | 2025-10-13 11:39 | XMS_ITS | Encounter Summary ---
Author Organization [facility] Address [address] [place] [address] Phone Care Team Providers Care Breaker Mechanic Name Role Phone Louise Perez MAILING SPECIALIST Unavailable Rodolfo Gray, HOME OFFICE CLAIM SPECIALIST, Jorge Galloway Primary Care Prov ider Reason for Visit * Reason Onset Date Comments Med Refill 04/14/2023 Encounter Details Date Type Department Care Team (Late st Contact Info) Description 04/14/2023 Refill [facility] [address] [place] [address] Kimberli Christiansen LPN [address] [id number] Social History Tobacco Use Types Packs/Day Years Used Date Smoking Tobacco: Some Days Cigarettes Smokeless Tobacco: Current Chew Alcohol Use Standard Drinks/Week Comments Not Currently 0 (1 standard drink = 0.6 oz pur e alcohol) history occassional PHQ-2 Answer Date Recorded Patient Health Questionnaire-2 Score 0 03/28/2023 Sex and Gender Information Value Date Recorded Sex Assigned at Male 03/28/2023 9:33 AM CDT Legal Sex Male 11:26 AM CDT Gender Identity Male 03/28/2023 9:33 AM CDT Sexual Orientation Straight 03/28/2023 9: 33 AM CDT COVID-19 Exposure Response Date Recorded In the last 10 days, have yo u been in contact with someone who was confirmed or suspected to have Coronavirus/COVID-19? No / Unsure 04/17/2023 9:13 AM CDT documented as of this encounter Plan of Treatment Not on file documented as of this encounter Visit Diagnoses Not on filedocumented in this encounter Care Teams Breaker Mechanic Relationship Specialty Start Date End Date Jorge Reynolds Sr., HOME OFFICE CLAIM SPECIALIST [address] [place] [address] PCP - General Family Medicine 06/13/23 Louise Perez FNP Nurse Practitioner Gastroenterology 04/03/23 documented as of this encounter
--- OUTSIDE RECORDS SUMMARY | 2025-10-13 11:39 | XMS_ITS | Clinical Summary ---
Author Organization [facility] Address [address] [address] Care Team Providers Care Litigation Associate Name Role Phone Ofe Paula PREFABRICATOR Primary Care Provider [phone] Allergies Active Allergy Reactions Criticality Noted Date Comments Acetaminophen Other (see comments) 05/30/2018 Adhesive Tape Itching 05/02/2018 Ibuprofen Other (see comments) 05/22/2020 Contraindicated due to liver problems Lorazepam Anxiety Low 02/22/2020 Night terrors Sulfa Antibiotics Anaphylaxis High 03/27/2018 Tramadol Other (see comments) 03/24/2010 Patient states, I am not allergic anymore. Medications metoprolol succinate XL (TOPROL-XL) 50 MG 24 hr tablet Take 25 mg by mouth daily 03/03/2020 Active QUEtiapine (SEROquel) 50 MG tablet Take 50 mg by mouth 1 (one) time each day Active Vilazodone HCl (Viibryd) 40 MG tablet Take 40 mg by mouth daily 08/16/2017 Active insulin glargine (LANTUS) 100 UNIT/ML injection Inject under the skin every night Active Farxiga 10 MG tablet Take 1 tablet by mouth 1 (one) time each day 12/11/2020 Active gabapentin (NEURONTIN) 300 MG capsule Take 300 mg by mouth at bed time 12/23/2020 Active metFORMIN XR (GLUCOPHAGE-XR) 500 MG 24 hr tablet Take 500 mg by mouth 1 (one) time each day 12/17/2020 Active omeprazole (PriLOSEC) [address] capsule Take 1 capsule by mouth 1 (one) time each day 10/05/2020 Active tiZANidine (ZANAFLEX) 4 MG tablet Take 1 tablet by mouth 3 (three) times a day if needed 12/18/2020 Active topiramate (TOPAMAX) 50 MG tablet Take 50 mg by mouth 2 (two) times a day 11/20/2020 Active cyclobenzaprine (FLEXERIL) 10 MG tablet Take 1 tablet by mouth 3 (three) times a day if needed 01/09/2021 Active Active Problems Problem Noted Date Diagnosed Date Stage 3a chronic kidney disease 01/12/2021 Type 2 diabetes mellitus wit h diabetic chronic kidney disease 01/12/2021 Essential (primary) hypertension 01/12/2021 Bipolar affective disorder, current episode matheus c 11/18/2009 Immunizations Immunization Administration Dates Next Due Influenza, Quadrivalent, Pf, Pediatrics 08/28/20 18 Td 01/02/2003 Social History Tobacco Use Types Packs/Day Years Used Date Smoking Tobacco: Former Cigarettes 0.5 Q uit: 05/25/2020 Smokeless Tobacco: Current Chew Alcohol Use Standard Drinks/Week Comments Not Currently 0 (1 standard drink = 0.6 oz pur e alcohol) occasional Sex and Gender Information Value Date Recorded Sex Assigned at Not on file Legal Sex Male 8:01 PM EDT Gender Identity Not on file Sexual Orientation Not on file Last Filed Vital Signs Vital Sign Reading Time Taken Comments Blood Pressure 100/70 01/12/2021 9:48 AM CDT Pulse 82 01/12/2021 9:48 AM CDT Temperature 36 C (96.8 F) 01/12/2021 9:48 AM CDT Respiratory Rate - - Oxygen Saturation - - Inhaled Oxygen Concentration - - Weight 87.8 kg (193 lb 9.6 oz) 01/12/2021 9:48 A M CDT Height 174 cm (5' 8.5 ) 01/12/2021 9:48 AM CDT Body Mass Index 29.01 01/12/2021 9:48 AM CDT Plan of Treatment Health Maintenance Due Date Last Done Comments Hepatitis B Vaccine (1 of 3 - 19+ 3-dose series) 06/24 Pneumococcal Vaccine: Peds ( 0 to 5 Years) and At-Risk Patients (6 to 49 Years) (1 of 2 - PCV) 1995 Diabetes: Hemoglobin A1C 07/15/2020 Diabetes: Ophthalmology Exam 07/15/2020 Diabetes: Pedal Pulse Checked 07/15/2020 Diabetes: Sensory Foot Exam 07/15/2020 Diabetes: Visual Foot Exam 07/15/2020 Influenza Vaccine (#1) 2025 08/28/2018 Colorectal Cancer Screening: Annual FOBT 2025 Colorectal Cancer Screening: Colonoscopy 2025 Colorectal Cancer Screening: Sigmoidoscopy 2025 Insurance [facility] Medicare Medicaid [place] Care Teams Litigation Associate Relationship Specialty Start Date End Date Ofe Paula NP [address] [place] [address] PCP - General Family Medicine 01/07/21
--- OUTSIDE RECORDS SUMMARY | 2025-10-13 11:39 | XMS_ITS | Encounter Summary ---
Author Organization [facility] Address [address] [place] [address] Care Team Providers Care Adding Machine Operator Name Role Phone Usha López MD Primary Care Provider [phone] Encounter Details Date Type Department Care Team (Late st Contact Info) Description 09/04/2006 Outpatient Historical HIS CANCELLED ADMISSION Hung Lay MD NO ADDRESS ON FILE Social History Tobacco Use Types Packs/Day Years Used Date Smoking Tobacco: Never Assessed Sex and Gender Information Value Date Recorded Sex Assigned at Not on file Legal Sex Male 3:56 AM INSTRUCTOR EXTENSION WORK Gender Identity Not on file Sexual Orientation Not on file documented as of this encounter Plan of Treatment Not on file documented as of this encounter Visit Diagnoses Not on filedocumented in this encounter Additional Health Concerns Infection Onset Date Last Indicated Resolved Time R/O COVID-19 09/28/2020 09/28/2020 09/28/2020 9:22 AM INSTRUCTOR EXTENSION WORK documented as of this encounter Care Teams Adding Machine Operator Relationship Specialty Start Date End Date Usha López MD PCP - General Family Practice 09/28/20 documented as of this encounter
--- OUTSIDE RECORDS SUMMARY | 2025-10-13 11:39 | XMS_ITS | Clinical Summary ---
Author Organization [facility] Address [address] [place] [address] Care Team Providers Care Plant Engineer Name Role Phone Usha López MD Primary Care Provider [phone] Allergies Active Allergy Reactions Criticality Noted Date Comments Acetaminophen Abdominal Pain Low 05/30/2018 Adhesive Tape-Silicones Itching Low 05/02/2018 Baking Soda Toothpste-Fluoride Swelling Low 06/22/2018 Ibuprofen Other (See Comments) 05/22/2020 Contraindicated due to liver problems Lorazepam Anxiety Low 02/22/2020 Sulfa (Sulfonamide Antibiotics) Anaphylaxis High 03/27/2018 Tramadol Headache Low 03/24/2010 Medications VIIBRYD 40 mg Tablet Take 40 mg by mouth daily . 7 Active metFORMIN (GLUCOPHAGE) 500 mg tabletIndication s:Type 2 diabetes mellitus without complication, without long-term current use of insulin ([facility]) Take 1 Tablet (500 mg) by mouth daily with breakfast. 60 Tablet 2 8 Active omeprazole (PriLOSEC) 20 mg Capsule, Delayed Release(E.C.)Ind ications:Gastroe sophageal reflux disease, esophagitis presence not specified Take 1 Capsule (20 mg) by mouth daily. 90 Capsule 1 8 Active Additional Information Patient taking differently: 40 mgOral DAILY, Reported on 05/22/2020 Miscellaneous Medical SupplyIndication s:Type 2 diabetes mellitus without complication, without long-term current use of insulin (CMS/HCC) Dx: Type 2 Diabetes Mellitus E11.9, Rx: Glucometer, strips, lancents. QS x 3 monthsSig: Monitor fasting blood sugar daily. 1 Each 8 Active canagliflozin (Invokana) 300 mg tablet Take 300 mg by mouth daily before breakfast. Active QUEtiapine (SEROqueL) 50 mg tablet Take 50 mg by mouth late in the day. Active metoprolol succinate (TOPROL XL) 50 mg Extended Release 24 hour tablet Take 50 mg by mouth daily. 0 Active oxyCODONE (ROXICODONE) 5 mg tablet Take 5 mg by mouth every 4 hours as needed for Pain. Active tiZANidine (ZANAFLEX) 4 mg Tablet Take 4 mg by mouth every 6 hours as needed for Spasm. Active Active Problems Problem Noted Date Diagnosed Date Gastroenteritis and colitis, viral 06/04/2020 CKD (chronic kidney disease) stage 3, GFR 30-59 ml/min 06/04/2020 Status post cervical arthrodesis 10/29/2018 Overview (10/29/2018): 10/08/18 - C3-[address] [place] in [place] Drug-seeking behavior 09/05/2018 Chronic pain syndrome 08/17/2018 Narcotic dependence 08/17/2018 WILLIAM (generalized anxiety disorder) 07/20/2018 Type 2 diabetes mellitus wit hout complication, without long-term current use of insulin 07/20/2018 Irritable bowel syndrome wit h both constipation and diarrhea 07/20/2018 Osteoarthritis of spine with radiculopathy, lumb ar region 07/20/2018 DJD (degenerative joint disease), cervical 07/20 Cervical vertebral fusion 07/20/2018 S/P carpal tunnel release 06/05/2018 S/P Right wrist scaphoid excision with four corn er fusion 06/05/2018 Right wrist pain 05/31/2018 Trigger finger of left thumb 03/29/2018 ADHD (attention deficit hyperactivity disorder) 11/18/2009 Bipolar disease, manic 11/18/2009 GERD (gastroesophageal reflux disease) 0 PUD (peptic ulcer disease) 11/18/2009 Resolved Problems Problem Noted Date Diagnosed Date Resolved Date Pain in wrist 10/26/2017 07/20/2018 Hepatitis, unspecified 11/18/200907/20 Immunizations Immunization Administration Dates Next Due (TDVAX)(7 YRS UP) TETANUS AN D DIPHTHERIA TOXOIDS, ADSORBED (2 LF OF TETANUS TOXOID AND 2 LF OF DIPHTHERIA TOXOID), 0.5ML (PF), IM 01/02/2003 Influenza Vaccine Quad Split 6-35 Mo Pf Im 08/28 Social History Tobacco Use Types Packs/Day Years Used Date Smoking Tobacco: Former Cigarettes Smokeless Tobacco: Current Chew Tobacco Cessation:Ready to Q uit: Yes Alcohol Use Standard Drinks/Week Comments Not Currently 0 (1 standard drink = 0.6 oz pur e alcohol) past use only Sex and Gender Information Value Date Recorded Sex Assigned at Not on file Legal Sex Male 3:56 AM JAVA J2EE TECHNICAL LEAD Gender Identity Not on file Sexual Orientation Not on file Last Filed Vital Signs Vital Sign Reading Time Taken Comments Blood Pressure 142/99 01/21/2021 3:56 PM CDT Pulse 97 01/21/2021 3:56 PM CDT Temperature 36.6 C (97.9 F) 01/21/2021 3:07 PM CDT Respiratory Rate 17 01/21/2021 3:56 PM CDT Oxygen Saturation 99% 01/21/2021 3:56 PM CDT Inhaled Oxygen Concentration - - Weight 85.3 kg (188 lb) 01/21/2021 3:07 PM CDT Height 172.7 cm (5' 8 ) 01/21/2021 3:07 PM CDT Body Mass Index 28.59 01/21/2021 3:07 PM CDT Plan of Treatment Health Maintenance Due Date Last Done Comments DIABETES ANNUAL FOOT EXAM 1994 DIABETES ANNUAL RETINAL EXAM 1994 HEPATITIS B VACCINES (1 of 3 - 19+ 3-dose series) 1995 DTAP/TDAP/TD VACCINES (1 - Tdap) 01/03/2003 01/03/20 03 DIABETES MICROALBUMIN ANNUAL SCREEN 10/03/201910/03 LDL CHOLESTEROL ANNUAL 10/19/2019 10/19/2018 COLORECTAL SCREENING 2021 Colorectal Cancer Screening 2021 FIT-DNA Q 3 years 2021 FIT/FOBT Q 1 year 2021 Flex Sig/CT Colonography Q 5 years 2021 DIABETES HBA1C Q 6 MONTHS 07/24/20212020, 10/02/2018, 07/20/2018 INFLUENZA VACCINE (#1) 2025 08/28/2018 Medical Devices Implanted Type Area Termite Treater Device Identifier Shelf Expiration Date Model / Serial / Lot Hemostatic Gelfoam Spng 12-7mm [id number] - [facility] - [id number] Implanted:Qty: 1 on 05/30/2018 by Mayela Chiu MD at [facility] Hemostatic Right: Wrist [employer] 09/21/2019 [id number] / / [id number] Screw Quckfx Ti 3.5x22mm [id number]-[id number] - [id number] Implanted:Qty: 1 on 05/30/2018 by Mayela Chiu MD at [facility] Screw Right: Wrist [employer] 05/30/2019 [id number] / / [id number] Screw Quckfx Ti 3.5x22mm Ar-8730-22h - [id number] Implanted:Qty: 1 on 05/30/2018 by Mayela Chiu MD at [facility] Screw Right: Wrist [employer] 05/30/2019 AR-8730-22H / / [id number] 1.1 Double Ended K-Wire [id number] Implanted:Qty: 1 on 05/30/2018 by Mayela Chiu MD at [facility] Right: Wrist 05/30/2019 [employer] - [id number] / / [id number] Description:per circ per malaika ification with [employer] vendor Hector 1.1 Double Ended K-Wire [id number] Implanted:Qty: 1 on 05/30/2018 by Mayela Chiu MD at [facility] Right: Wrist 05/30/2019 [employer] - [id number] / / [id number] Description:per circ 1.1 Double Ended K-Wire [id number] Implanted:Qty: 1 on 05/30/2018 by Mayela Chiu MD at [facility] Right: Wrist 05/30/2019 [employer] - [id number] / / [id number] Procedures Procedure Name Priority Date/Time Associated Diagnosis Comments LIPID PANEL Routine 10/19/2018 10:30 AM JAVA J2EE TECHNICAL LEAD Type 2 diabetes mellitus without complication, without long-term current use of insulin ([facility]) MICROALBUMIN/CREATIN INE RATIO, RANDOM UR Routine 10/03/2018 2:56 PM JAVA J2EE TECHNICAL LEAD Type 2 diabetes mellitus without complication, without long-term current use of insulin ([facility]) HEMOGLOBIN A1C Routine 10/02/2018 11:48 AM JAVA J2EE TECHNICAL LEAD Type 2 diabetes mellitus without complication, without long-term current use of insulin ([facility]) from Last 3 Months or Most Recently Relevant to Health Maintenance Results * (ABNORMAL) LIPID PANEL (10/19/2018 10:30 AM [facility]) Pathologist [facility] CHOLESTEROL 198 <200 mg/dL 10/19/2018 8:34 PM [facility] TRIGLYCERIDE 239(H) <150 mg/dL 10/19/2018 8:34 PM [facility] HDL 37(L) 40 - 59 mg/dL 10/19/2018 8:34 PM [facility] LDL CALCULATED 113(H) <100 mg/dL 10/19/2018 8:34 PM [facility] NON-HDL CHOLESTEROL 161(H) <130 mg/dL 10/19/2018 8:34 PM [facility] Blood Collection / Unknown 10/19/2018 10:30 AM JAVA J2EE TECHNICAL LEAD 10/19/2018 7:52 PM [facility] - 10/19/2018 8:34 PM [facility] TOTAL CHOLESTEROL mg/dL Desirable <200 Borderline high 200-239 High >=240 TRIGLYCERIDES mg/dL Normal <150 Borderline high 150-199 High 200-499 Very high >=500 HDL CHOLESTEROL mg/dL Low <40 Normal 40-59 Desirable >=60 NON HDL CHOLESTEROL mg/dL Optimal <130 Near Optimal 130-159 Borderline High 160-189 Very High >=190 Calculated LDL mg/dL Optimal <100 Near Optimal 100-129 Borderline High 130-159 High 160-189 Very High >=190 ATPIII Guidelines Reference Ranges for Lipid Panels (NCEP/AMA) Anthony Strickland MD CHEMISTRY ORDERABLES Gris l Result Performing Organization Address [facility]/ZIP Co de Phone Number [facility] [id number] [address] [place] [address] * (ABNORMAL) MICROALBUMIN/CREATININE RATIO, RANDOM UR (10/03/2018 2:56 PM JAVA J2EE TECHNICAL LEAD) MICROALBUMIN, URINE <1.2 No Reference Range mg/dL 10/03/2018 8:[address] [facility] CREATININE, URINE 34.3(L) 40.0 - 278.0 mg/dL 10/03/2018 8:[address] [facility] Comment: Reference Range varies with fluid intake and diet. Urine URINE SPECIMEN OBTAINED BY CLEAN CATCH PROCEDURE / Unknown Collection / Unknown 10/03/2018 2:56 PM JAVA J2EE TECHNICAL LEAD 10/03/2018 7:29 PM JAVA J2EE TECHNICAL LEAD Narrative [facility] - 10/03/2018 8:53 PM JAVA J2EE TECHNICAL LEAD Condition Microalbumin/Creat ratio Normal Males <17 Normal Females <25 Microalbuminuria Males 17-299 Microalbuminuria Females 25-299 Overt proteinuria >=300 Unable to calculate urine microalbumin/creatinine ratio because urine microalbumin result is outside of reportable range. Leonela Sparks [facility] URINE ORDERABLES Final Result [facility]# [id number] [address] [place] [address] * (ABNORMAL) HEMOGLOBIN A1C (10/02/2018 11:48 AM JAVA J2EE TECHNICAL LEAD) HEMOGLOBIN A1C 6.7(H) 4.0 - 6.0 % 10/03/2018 3:[address] [facility] EST. AVG GLUCOSE, A1C 146 mg/dL 10/03/2018 3:[address] [facility] Blood Collection / Unknown 10/02/2018 11:48 AM JAVA J2EE TECHNICAL LEAD 10/02/2018 7:40 PM JAVA J2EE TECHNICAL LEAD Narrative [facility] - 10/03/2018 3:10 PM JAVA J2EE TECHNICAL LEAD HGB A1C INTERPRETATION NORMAL: <5.7% PRE-DIABETES: 5.7 - 6.4% DIABETES: 6.5% OR GREATER Falsely low A1C measurements can occur when: 1. Anemia and/or hemolytic anemia is present. 2. Hemoglobin variants present. 3. Renal failure. 4. Transfusion of blood product in the last 120 days. We recommend ordering a fructosamine test([id number]) to more accurately assess glycemic status if any of the above conditions are present. Leonela Sparks BOILER TESTING TECHNICIAN CHEMISTRY ORDERABLES Final Resul t [facility] CLIA# [id number] [address] [place] [address] from Last 3 Months or Most Recently Relevant to Health Maintenance Insurance MEDICAID [facility] DUAL COMPLETE [facility] PPO D-SNP RX INFOCROSSING Medicaid RX INFOCROSSING Medicaid RX [employer] RX Member Subscriber Plan / Payer (Ef fective 2016-Present) Name:Chris Junior Relation to Subscriber:Self Name:Chris Junior Payer ID:Not on file Group ID:[id number] Type:RX Medicare Part D Address: [place], [place] Advance Directives For more information, please contact: [phone] * Full Code (Latest Code Status on File) Date Activated Date Inactivated Comments 05/30/2018 12:49 PM 05/30/2018 7:51 PM * Full Code Date Activated Date Inactivated Comments 05/30/2018 11:08 AM 05/30/2018 12:49 PM Care Teams Plant Engineer Relationship Specialty Start Date End Date Usha López MD PCP - General Family Practice 09/28/20
--- OUTSIDE RECORDS SUMMARY | 2025-10-13 11:39 | XMS_ITS | Encounter Summary ---
Author Organization [facility] Address [address] [place] [address] Phone Care Team Providers Care Warhead Maintenance Specialist Name Role Phone Louise Perez LEAD LEVEL DESIGNER Unavailable Rodolfo Gray, SERVICER TRAVEL TRAILERS, Jorge Galloway Primary Care Prov ider Encounter Details Date Type Department Care Team (Late st Contact Info) Description 04/10/2023 Telephone [facility] [address] [id number] Louise Perez FNP [address] [place] [address] Social History Tobacco Use Types Packs/Day Years [...] suspected to have Coronavirus/COVID-19? No / Unsure 04/04/2023 3:03 PM CDT documented as of this encounter Miscellaneous Notes * Telephone Encounter - Gege Ramirez - 04/21/2023 11:35 AM CDT LMTRC * Telephone Encounter - Gege Ramirez - 04/20/2023 11:20 AM CDT LMTRC * Telephone Encounter - Gege Ramirez - 04/10/2023 11:51 AM CDT PT called to ask since CT is normal, does he still need to have procedure done on 04/17/23. Please advise. documented in this encounter Plan of Treatment Not on file documented as of this encounter Visit Diagnoses Not on filedocumented in this encounter Care Teams Warhead Maintenance Specialist Relationship Specialty Start Date End Date Jorge Reynolds Sr., SERVICER TRAVEL TRAILERS [address] [place] [address] PCP - General Family Medicine 06/13/23 Louise Perez FNP Nurse Practitioner Gastroenterology 04/03/23 documented as of this encounter
--- OUTSIDE RECORDS SUMMARY | 2025-10-13 11:39 | XMS_ITS | Encounter Summary ---
Author Organization [facility] Address [address] [place] [address] Care Team Providers Care Fifth Grade Teacher Name Role Phone Usha López MD Primary Care Provider [phone] Encounter Details Date Type Department Care Team (Late st Contact Info) Description 08/28/2006 Outpatient Historical HIS CANCELLED ADMISSION Hung Lay MD NO ADDRESS ON FILE Social History Tobacco Use Types Packs/Day Years Used Date Smoking Tobacco: Never Assessed Sex and Gender Information Value Date Recorded Sex Assigned at Not on file Legal Sex Male 3:56 AM WHALE FISHERMAN Gender Identity Not on file Sexual Orientation Not on file documented as of this encounter Plan of Treatment Not on file documented as of this encounter Visit Diagnoses Not on filedocumented in this encounter Additional Health Concerns Infection Onset Date Last Indicated Resolved Time R/O COVID-19 09/28/2020 09/28/2020 09/28/2020 9:22 AM WHALE FISHERMAN documented as of this encounter Care Teams Fifth Grade Teacher Relationship Specialty Start Date End Date Usha López MD PCP - General Family Practice 09/28/20 documented as of this encounter
--- OUTSIDE RECORDS SUMMARY | 2025-10-13 11:39 | XMS_ITS | Encounter Summary ---
Author Organization [facility] Address [address] [place] [address] Care Team Providers Care Psychiatric Registered Nurse Name Role Phone Usha López MD Primary Care Provider [phone] Reason for Visit * Reason Comments Medication Refill Encounter Details Date Type Department Care Team (Late st Contact Info) Description 11/27/2017 Refill [facility] Orthopedics - Orthopedic [facility] [address] [place] [address] Mayela Chiu MD [address] [place] [address] Social History Tobacco Use Types Packs/Day Years Used Date Smoking Tobacco: Never Smokeless Tobacco: Current Alcohol Use Standard Drinks/Week Comments Not Asked 0 (1 standard drink = 0.6 oz pur e alcohol) Sex and Gender Information Value Date Recorded Sex Assigned at Not on file Legal Sex Male 3:56 AM SKIFF OPERATOR Gender Identity Not on file Sexual Orientation Not on file documented as of this encounter Plan of Treatment Not on file documented as of this encounter Visit Diagnoses Not on filedocumented in this encounter Additional Health Concerns Infection Onset Date Last Indicated Resolved Time R/O COVID-19 09/28/2020 09/28/2020 09/28/2020 9:22 AM SKIFF OPERATOR documented as of this encounter Care Teams Psychiatric Registered Nurse Relationship Specialty Start Date End Date Usha López MD PCP - General Family Practice 09/28/20 documented as of this encounter
--- OUTSIDE RECORDS SUMMARY | 2025-10-13 11:39 | XMS_ITS | Encounter Summary ---
Author Organization [facility] Address [address] [place] [address] Care Team Providers Care Custodial Services Manager Name Role Phone Usha López MD Primary Care Provider Encounter Details Date Type Department Care Team (Latest Contact Info) Description 12/08/2004 Outpatient Historical [facility] [place] [address] [place] [address] Abhijit Dailey MD NO ADDRESS ON FILE PRECORDIAL PAIN (Primary Dx) Social History Tobacco Use Types Packs/Day Years Used Date Smoking Tobacco: Never Assessed Sex and Gender Information Value Date Recorded Sex Assigned at Not on file Legal Sex Male 3:56 AM STEAM ENGINEER Gender Identity Not on file Sexual Orientation Not on file documented as of this encounter Plan of Treatment Not on file documented as of this encounter Visit Diagnoses Diagnosis Precordial pain- Primary documented in this encounter Additional Health Concerns Infection Onset Date Last Indicated Resolved Time R/O COVID-19 09/28/2020 09/28/2020 09/28/2020 9:22 AM STEAM ENGINEER documented as of this encounter Care Teams Custodial Services Manager Relationship Specialty Start Date End Date Usha López MD PCP - General Family Practice 09/28/20 documented as of this encounter
--- OUTSIDE RECORDS SUMMARY | 2025-10-13 11:39 | XMS_ITS | Encounter Summary ---
Author Organization [facility] Address [address] [place] [address] Care Team Providers Care Ring Barker Operator Name Role Phone Usha López MD Primary Care Provider [phone] Encounter Details Date Type Department Care Team (Latest Contact Info) Description 10/02/2006 Outpatient Historical [facility] [place] [facility] 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 APPLICATION SPECIALIST Gender Identity Not on file Sexual Orientation Not on file documented as of this encounter Plan of Treatment Not on file documented as of this encounter Visit Diagnoses Diagnosis Esophageal reflux- Primary Other voice and resonance disorders Dysphagia Deviated nasal septum documented in this encounter Additional Health Concerns Infection Onset Date Last Indicated Resolved Time R/O COVID-19 09/28/2020 09/28/2020 09/28/2020 9:22 AM EQUIPMENT APPLICATION SPECIALIST documented as of this encounter Care Teams Ring Barker Operator Relationship Specialty Start Date End Date Usha López MD PCP - General Family Practice 09/28/20 documented as of this encounter
--- OUTSIDE RECORDS SUMMARY | 2025-10-13 11:39 | XMS_ITS | Encounter Summary ---
Author Organization [facility] Address [address] [place] [address] Care Team Providers Care Folding Machine Setter Name Role Phone Usha López MD Primary Care Provider [phone] Reason for Visit * Reason Comments Medication Refill Encounter Details Date Type Department Care Team (Late st Contact Info) Description 11/10/2017 Refill [facility] Orthopedics - Orthopedic [facility] [address] [place] [address] Mayela Chiu MD [address] [place] [address] Social History Tobacco Use Types Packs/Day Years Used Date Smoking Tobacco: Never Smokeless Tobacco: Current Alcohol Use Standard Drinks/Week Comments Not Asked 0 (1 standard drink = 0.6 oz pur e alcohol) Sex and Gender Information Value Date Recorded Sex Assigned at Not on file Legal Sex Male 3:56 AM 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 COILING MACHINE OPERATOR documented in this encounter Plan of Treatment Not on file documented as of this encounter Visit Diagnoses Not on filedocumented in this encounter Additional Health Concerns Infection Onset Date Last Indicated Resolved Time R/O COVID-19 09/28/2020 09/28/2020 09/28/2020 9:22 AM ROPE COILING MACHINE OPERATOR documented as of this encounter Care Teams Folding Machine Setter Relationship Specialty Start Date End Date Usha López MD PCP - General Family Practice 09/28/20 documented as of this encounter
--- OUTSIDE RECORDS SUMMARY | 2025-10-13 11:39 | XMS_ITS | Encounter Summary ---
Author Organization [facility] Address [address] [place] [address] Care Team Providers Care Supervisor Stripping Name Role Phone Usha López MD Primary Care Provider Encounter Details Date Type Department Care Team (Latest Contact Info) Description 06/25/1999 Outpatient Historical [facility] Juanjo Baldwin MD [address] [place] [address] Intestinal infection due to other organism, not elsewhere classified (Primary Dx) Social History Tobacco Use Types Packs/Day Years Used Date Smoking Tobacco: Never Assessed Sex and Gender Information Value Date Recorded Sex Assigned at Not on file Legal Sex Male 3:56 AM FINANCIAL ADVISER Gender Identity Not on file Sexual Orientation Not on file documented as of this encounter Plan of Treatment Not on file documented as of this encounter Visit Diagnoses Diagnosis Intestinal infection due to other organism, not elsewhere classified- Primary documented in this encounter Additional Health Concerns Infection Onset Date Last Indicated Resolved Time R/O COVID-19 09/28/2020 09/28/2020 09/28/2020 9:22 AM FINANCIAL ADVISER documented as of this encounter Care Teams Supervisor Stripping Relationship Specialty Start Date End Date Usha López MD PCP - General Family Practice 09/28/20 documented as of this encounter
--- OUTSIDE RECORDS SUMMARY | 2025-10-13 11:39 | XMS_ITS | Clinical Summary ---
Author Organization [facility] Address [address] [place] [address] Phone Care Team Providers Care Critical Care Physician Name Role Phone Louise Perez MANNEQUIN MOLDER Unavailable Rodolfo Gray, AUDIO ENGINEER, Jorge Galloway Primary Care Prov ider Allergies Active Allergy Reactions Criticality Noted Date Comments Acetaminophen Anaphylaxis High 07/13/2020 Adhesive Tape-Silicones Itching 05/02/2018 Baking Soda Toothpste-Fluoride Swelling 06/22/2018 Ibuprofen Other 05/22/2020 Other reaction(s): Contraindicated due to liver problems Lorazepam Anxiety Low 02/22/2020 Night terrors Sulfa (Sulfonamide Antibiotics) Anaphylaxis High 03/27/2018 Tramadol Anaphylaxis High 07/13/2020 Sertraline 06/13/2023 Medications metFORMIN, MOD, (Glumetza) 500 mg 24 hr tablet Take 1 tablet by mouth 1 (one) time each day with breakfast. Active dapagliflozin (Farxiga) 10 mg Take 1 tablet by mouth 1 (one) time each day. 12/11/19 21 Active TechLITE Pen Needle 32 gauge x 32 needle 1 each See administration instructions. 09/01/20 20 Active metoprolol succinate XL (Toprol-XL) 50 mg 24 hr tablet Take 50 mg by mouth 1 (one) time each day. 03/03/20 20 Active miscellaneous medical supply misc 1 each See administration instructions. 10/19/20 18 Active Lantus Solostar U-100 Insulin 100 unit/mL (3 mL) injection Inject 20 Units under the skin 2 (two) times a day. 12/31/19 21 Active ProAir HFA 90 mcg/actuation inhaler Inhale 1-2 puffs every 6 (six) hours if needed for shortness of breath. 10/24/19 21 Active QUEtiapine (SEROquel) 100 mg tablet Take 1 tablet (100 mg total) by mouth every night. 30 tablet 3 06/09/20 21 Active vilazodone (Viibryd) 40 mg tablet Take 1 tablet by mouth once daily with breakfast 30 tablet 09/30/20 21 Active buPROPion XL (Wellbutrin XL) 150 mg 24 hr tablet Take 150 mg by mouth 1 (one) time each day. Do not crush, chew, or split. Active busPIRone (Buspar) 10 mg tablet Take 10 mg by mouth 3 (three) times a day. Active clomiPRAMINE (Anafranil) 50 mg capsule Take 50 mg by mouth every night. Active cyclobenzapri ne (Flexeril) 10 mg tablet Take 10 mg by mouth 3 (three) times a day if needed for muscle spasms. Active linaCLOtide (Linzess) 145 mcg capsule Take 1 capsule (145 mcg total) by mouth 1 (one) time each day. 30 capsule 08/30/20 23 Active dexlansoprazo le (Dexilant) [address] capsuleIndica tions:Chronic GERD TAKE 1 CAPSULE BY MOUTH ONCE DAILY DO NOT CRUSH OR CHEW 90 capsule 3 06/10/20 24 Active methocarbamoL (Robaxin) 500 mg tablet Take 1 tablet (500 mg total) by mouth 2 (two) times a day for 10 days. 20 tablet 02/29/20 21 2020 Discontinued Active Problems Problem Noted Date Diagnosed Date Dysphagia 03/28/2023 Globus sensation 03/28/2023 Resolved Problems Problem Noted Date Diagnosed Date Resolved Date Epigastric pain 03/28/2023 01/05/2024 Family History * Patient is adopted Medical History Relation Comments Crohn's disease Half-Brother Asthma Mother Cancer Mother stomach Diabetes Mother Heart disease Mother Hypertension Mother Stroke Mother Cancer Mother's Sister Anesthesia problems Neg Hx Relation Status Comments Brother Half-Brother Alive Mother Mother's Sister Alive Social History Tobacco Use Types Packs/Day Years Used Date Smoking Tobacco: Former Cigarettes 0 Q uit: 2022 Smokeless Tobacco: Current Chew Tobacco Cessation:Ready to Q uit: Not Asked; Counseling Given: Not Answered Alcohol Use Standard Drinks/Week Comments Not Currently 0 (1 standard drink = 0.6 oz pur e alcohol) history occassional AUDIT-C Answer Date Recorded Q1: How often do you have a drink containing alcohol? Never 12/27/2023 Q2: How many drinks containi ng alcohol do you have on a typical day when you are drinking? Patient does not drink Q3: How often do you have si x or more drinks on one occasion? Never 12/27/2023 PHQ-2 Answer Date Recorded Patient Health Questionnaire-2 Score 0 12/27/2023 [facility] - Mental Health Answer Date Recorde d Little interest or pleasure in doing things Not at all 12/27/2023 Feeling down, depressed, or hopeless Not at all 12/27/2023 Feeling of Stress Not on file 12/27/2023 Sex and Gender Information Value Date Recorded Sex Assigned at Male 03/28/2023 9:33 AM CDT Legal Sex Male 11:26 AM CDT Gender Identity Male 03/28/2023 9:33 AM CDT Sexual Orientation Straight 03/28/2023 9: 33 AM CDT Last Filed Vital Signs Vital Sign Reading Time Taken Comments Blood Pressure 112/74 01/26/2024 12:20 PM CDT Pulse 77 01/26/2024 12:20 PM CDT Temperature 36 C (96.8 F) 01/26/2024 12:04 PM CDT Respiratory Rate 17 01/26/2024 12:20 PM CDT Oxygen Saturation 98% 01/26/2024 12:20 PM CDT Inhaled Oxygen Concentration - - Weight 86.7 kg (191 lb 0.5 oz) 01/26/2024 9:37 A M CDT Height 172 cm (5' 7.72 ) 01/26/2024 9:37 AM CDT Body Mass Index 29.29 01/26/2024 9:37 AM CDT Plan of Treatment Health Maintenance Due Date Last Done Comments CT Colonography 1976 Creatinine Level 1976 Diabetes: Hemoglobin A1C 1976 FIT-DNA 1976 FIT 1976 FOBT 1976 Potassium Level 1976 Sigmoidoscopy 1976 MMR Vaccines (1 of 1 - Standard series) 1977 Diabetes: Foot Exam 1986 Diabetes: Retinopathy Screening 1986 Varicella Vaccines (1 of 2 - 13+ 2-dose series) 1989 Depression Screening 1994 Social Drivers of Health (SDoH) 1994 Hepatitis A Vaccines (1 of 2 - Risk 2-dose series) 1995 Hepatitis B Vaccines (1 of 3 - 19+ 3-dose series) 1995 DTaP,Tdap,and Td Vaccines (3 - Td or Tdap) 07/05/2010 01/02/2010, 01/02/2003 COVID-19 Vaccines (1 - 2024- season) 2025 Influenza Vaccine (#1) 2025 8, 10/17/2016, 08/08/2015, Additional history exists Zoster Vaccines (1 of 2) 2026 Colonoscopy 11/02/2027 11/02/2022 Colorectal Cancer Screening 11/02/2027 RSV Vaccines (1 - 1-dose 75+ series) 2051 Pneumococcal Vaccines Aged Out 02/25/2014 No rosendo tiana eligible based on patient's age to complete this topic HIB Vaccines Aged Out No longer eligi ble based on patient's age to complete this topic HPV Vaccines Aged Out No longer eligi ble based on patient's age to complete this topic IPV Vaccines Aged Out No longer eligi ble based on patient's age to complete this topic Meningococcal B Vaccine Aged Out No l onger eligible based on patient's age to complete this topic Meningococcal Vaccine Aged Out No rosedno tiana eligible based on patient's age to complete this topic Rotavirus Vaccines Aged Out No longer eligible based on patient's age to complete this topic Insurance [facility] CARE IMPROVEMENT PLUS [facility] Care Teams Critical Care Physician Relationship Specialty Start Date End Date Jorge Reynolds Sr., AUDIO ENGINEER [address] [place] [address] PCP - General Family Medicine 06/13/23 Louise Perez FNP Nurse Practitioner Gastroenterology 04/03/23
--- OUTSIDE RECORDS SUMMARY | 2025-10-13 11:39 | XMS_ITS | Encounter Summary ---
Author Organization [facility] Address [address] [place] [id number] Phone Care Team Providers Care Commercial Drone Pilot Name Role Phone Louise Perez Unavailable Rodolfo Gray, ORACLE ASCP CONSULTANT, Jorge Galloway Primary Care Prov ider Reason for Visit * Reason Onset Date Comments Procedure Form 01/02/2024 Encounter Details Date Type Department Care Team (Late st Contact Info) Description 01/02/2024 Telephone [facility] [address] [phone] Louise Perez FNP [address] [place] [address] Procedure Form Social History Tobacco Use Types Packs/Day Years Used Date Smoking Tobacco: Former Cigarettes Smokeless Tobacco: Current Chew Alcohol Use [...] Recorded Patient Health Questionnaire-2 Score 0 12/27/2023 [facility] Health Answer Date Recorde [...] Orientation Straight 03/28/2023 9: 33 AM CDT documented as of this encounter Plan of Treatment Not on file documented as of this encounter Visit Diagnoses Not on filedocumented in this encounter Care Teams Commercial Drone Pilot Relationship Specialty Start Date End Date Jorge Reynolds Sr., ORACLE ASCP CONSULTANT [address] [place] [address] PCP - General Family Medicine 06/13/23 Louise Perez FNP Nurse Practitioner Gastroenterology 04/03/23 documented as of this encounter
--- OUTSIDE RECORDS SUMMARY | 2025-10-13 11:39 | XMS_ITS | Encounter Summary ---
Author Organization [facility] Address [address] [place] [address] Phone Care Team Providers Care Engine Tester Name Role Phone Louise Perez Unavailable Rodolfo Gray, DEPUTY REGISTER OF DEEDS, Jorge Galloway Primary Care Prov ider Reason for Visit * Reason Onset Date Comments Appointment 12/12/2023 Encounter Details Date Type Department Care Team (Late st Contact Info) Description 12/12/2023 Telephone [facility] [address] [phone] Louise Perez FNP [address] [place] [phone] Appointment Social History Tobacco Use Types Packs/Day Years Used Date Smoking Tobacco: Some Days Cigarettes Smokeless Tobacco: Current Chew Alcohol Use Standard Drinks/Week Comments Not Currently 0 (1 standard drink = 0.6 oz pur e alcohol) history occassional PHQ-2 Answer Date Recorded Patient Health Questionnaire-2 Score 0 06/13/2023 Sex and Gender Information Value Date Recorded Sex Assigned at Male 03/28/2023 9:33 AM CDT Legal Sex Male 11:26 AM CDT Gender Identity Male 03/28/2023 9:33 AM CDT Sexual Orientation Straight 03/28/2023 9: 33 AM CDT documented as of this encounter Miscellaneous Notes * Telephone Encounter - Gege Ramirez - 12/22/2023 3:27 PM CST Scheduled RIOR DESIGN DIRECTOR * Telephone Encounter - Kimberli Bartholomew - 12/22/2023 2:56 PM CST Patient states that he is back to having difficulty swallowing liquids and solids. He feels like food is getting stuck again. He is taking dexilant 60mg daily in the am and pepcid 40mg at hs. Please advise RIOR DESIGN DIRECTOR * Telephone Encounter - Gegegermaine Ramirez - 12/20/2023 1:07 PM CST PT would like to be seen in office regarding possible throat stretching. Please advise. Last OV was06/13/23 RIOR DESIGN DIRECTOR * Telephone Encounter - Gege Ramirez - 12/15/2023 3:46 PM CST LMTRC RIOR DESIGN DIRECTOR * Telephone Encounter - Giuliana Laguerre - 12/12/2023 12:23 PM CST Calling to schedule RIOR DESIGN DIRECTOR documented in this encounter Plan of Treatment Not on file documented as of this encounter Visit Diagnoses Not on filedocumented in this encounter Care Teams Engine Tester Relationship Specialty Start Date End Date Jorge Reynolds Sr., DEPUTY REGISTER OF DEEDS [address] [place] [phone] PCP - General Family Medicine 06/13/23 Louise Perez FNP Nurse Practitioner Gastroenterology 04/03/23 documented as of this encounter
--- OUTSIDE RECORDS SUMMARY | 2025-10-13 11:39 | XMS_ITS | Encounter Summary ---
Author Organization [facility] Address [address] [place] [address] Care Team Providers Care Gas Meter Checker Name Role Phone Usha López MD Primary Care Provider Reason for Visit * Reason Comments Medication Refill Encounter Details Date Type Department Care Team (Late st Contact Info) Description 12/25/2017 Refill [facility] Orthopedics - Orthopedic [facility] [address] [place] [address] Mayela Chiu MD [address] [place] [address] Social History Tobacco Use Types Packs/Day Years Used Date Smoking Tobacco: Never Smokeless Tobacco: Current Alcohol Use Standard Drinks/Week Comments Not Asked 0 (1 standard drink = 0.6 oz pur e alcohol) Sex and Gender Information Value Date Recorded Sex Assigned at Not on file Legal Sex Male 3:56 AM EDUCATOR SENIOR CLINICAL Gender Identity Not on file Sexual Orientation Not on file documented as of this encounter Plan of Treatment Not on file documented as of this encounter Visit Diagnoses Not on filedocumented in this encounter Additional Health Concerns Infection Onset Date Last Indicated Resolved Time R/O COVID-19 09/28/2020 09/28/2020 09/28/2020 9:22 AM EDUCATOR SENIOR CLINICAL documented as of this encounter Care Teams Gas Meter Checker Relationship Specialty Start Date End Date Usha López MD PCP - General Family Practice 09/28/20 documented as of this encounter
--- NOTE | 2025-10-13 11:41 | ED_ITS ---
HPI - Neuro Symptoms/Deficit 2 General: Chief Complaint: Neuro Symptoms/Deficit Stated Complaint: stroke like symptoms Time Seen by Provider: 10/13/25 11:39 History of Present Illness: 50-year-old man with a history of rheuma toid arthritis, chronic kidney disease, diabetes, peptic ulcer disease, hypertension, and irritable bowel who presents emergency room with neurosymptoms. He says it started yesterday. He initially had numbness and tingling in his left arm with some weakness. Then it changed to his right hand. Still has some numbness in his right hand. He has full movement. No actual sensory deficit. He said he had some slurred speech earlier but it seems normal now. No focal motor deficits. No fever. No chest pain. No cough. No abdominal pain. Related Data Home Medications ?Medication ?Instructions ?Recorded ?Confirmed linaclotide 72 mcg capsule 72 mcg PO .HS 08/14/2309/23 (Linzess) diclofenac sodium 1 % topical gel 4 g topical QID PRN arth 11/01/23 10/13/25 (Arthritis Pain (diclofenac)) dexlansoprazole 60 mg 60 mg PO DAILY 09/04/2509/23 capsule,biphase delayed release famotidine 40 mg tablet 40 mg PO BEDTIME 09/04/25 haloperidol 5 mg tablet 5 mg PO BID PRN Anxiety 08/2310/13/25 insulin glargine 100 unit/mL (3 40 unit SUBCUT BID PRN 09/04/25 10/13/25 mL) subcutaneous pen (Lantus Hyperglycemia Solostar U-100 Insulin) insulin lispro 100 unit/mL 2 unit SUBCUT TID PRN Hyper glycemia 09/04/25 10/13/25 subcutaneous pen (Humalog KwikPen (U-100) Insulin) pregabalin 75 mg capsule (Lyrica) 150 mg PO BEDTIME 10/13/25 cyclobenzaprine 5 mg tablet 5 mg PO TID PRN Spasms 01/1410/13/25 dapagliflozin propanediol 10 mg 10 mg PO DAILY 5 10/13/25 tablet (Farxiga) Previous Rx's ?Medication ?Instructions ?Recorded lancets (Accu-Chek Softclix #100 ea 05/06/21 Lancets) pen needle, diabetic 31 gauge x #100 ea 02/13/24 3/16 (TechLITE Pen Needle) blood-glucose,hand drawer in helper,cont #1 ea 07/24/24 (Dexcom G7 Front Services Agent) metformin 500 mg tablet,extended 500 mg PO BID #180 ta bs 01/09/25 release 24 hr buspirone 10 mg tablet 20 mg (2 x 10 mg) PO TID #18 0 tabs 04/02/25 hydroxyzine HCl 50 mg tablet 50 mg PO QID PRN anxiety #120 tabs 04/02/25 quetiapine 100 mg tablet (Seroquel) 100 mg PO .HS #30 tabs 04/02/25 vilazodone 40 mg tablet (Viibryd) 40 mg PO QAM #30 tab s 04/02/25 blood-glucose sensor (Dexcom G7 #9 ea 07/17/25 Sensor device) adalimumab 40 mg/0.4 mL 40 mg (0.4 mL) SUBCUT Q14D # 2 ea 07/22/25 subcutaneous pen kit (Humira(CF) Pen) leflunomide 20 mg tablet 20 mg PO DAILY #90 tabs 06/25 0 prednisone 10 mg tablet See Rx Instructions PO .COMP PAT 07/22/25 PRN joint pain #30 tabs mupirocin 2 % topical ointment 1 applic topical BID 7 days #22 08/12/25 (Centany) grams sucralfate 1 gram tablet 1 g PO BID 4 weeks #56 tabs 09/25/25 metoprolol succinate 50 mg 50 mg PO DAILY #90 tabs 06/16 tablet,extended release 24 hr prednisone 20 mg tablet 60 mg (3 x 20 mg) PO DAILY 5 days 10/13/25 #15 tabs Allergies Allergy/AdvReac Type Severity Reaction Status Date / Time adhesive tape Allergy Severe rash Verified 10/13/25 10:28 Sulfa (Sulfonamide Allergy Severe unknown Verified 10/13/25 10:28 Antibiotics) tramadol Allergy Severe itch Verified 10/13/25 10:28 acetaminophen (From Tylenol) AdvReac Severe ALGY-Swell Verified 10/13/25 10:28 Lip/Tongue/Throat Review of Systems 2 Narrative: Constitutional symptoms: Negative except as documented in HPI. Skin symptoms: Negative except as documented in HPI. Eye symptoms: Negative except as documented in HPI. ENMT symptoms: Negative except as documented in HPI. Respiratory symptoms: Negative except as documented in HPI. Cardiovascular symptoms: Negative except as documented in HPI. Gastrointestinal symptoms: Negative except as documented in HPI. Genitourinary symptoms: Negative except as documented in HPI. Musculoskeletal symptoms: Negative except as documented in HPI. Neurologic symptoms: Negative except as documented in HPI. Psychiatric symptoms: Negative except as documented in HPI. Endocrine symptoms: Negative except as documented in HPI. PFSH ED 2 PFSH: Medical History (Updated 10/13/25 @ 12:49 by Ludy Murphy MD) History of esophageal dilatation Seronegative rheumatoid arthritis of both hands Hyperglycemia Jaclyn infection Trichotillomania CKD (chronic kidney disease) stage 3, GFR 30-59 ml/min Diabetes mellitus type 2, uncontrolled Immunization counseling High risk medication use Inflammatory arthritis Psychiatric care Asthma Pneumothorax Staphylococcal infection of skin Seasonal allergies Angina decubitus History of hepatitis Peptic ulcer disease Hematuria Chest pain Carpal tunnel syndrome Tobacco use Hypertension GERD (gastroesophageal reflux disease) Chronic pain syndrome Hyperlipidemia Irritable bowel syndrome ADD (attention deficit disorder) Type 2 diabetes mellitus Surgical History Status post cervical spinal fusion H/O chest tube placement H/O wrist surgery R History of carpal tunnel surgery L History of back surgery H/O neck surgery Family History Family/Other No problems noted. Other Adopted Social History Smoking and tobacco/nicotine status: current every day tobacco/nicotine user cigarettes Packs smoked per day: 0.1 and smokeless tobacco Smokeless tobacco user: chewing tobacco and snuff Smokeless tobacco details: 1 can/ 2 days Quit status (tobacco/nicotine): not considering quitting Second hand smoke exposure: Yes Alcohol intake: former Year of sobriety/quit date alcohol: 2021 Substance/Drug Use: former Date of last use: Former occasional marijuana. Currently occ CBD oil. Lives independently: Yes Household members: spouse Marital status: Current occupational status: unemployed Do you think of yourself as: Straight/Heterosexual Current gender identity: Male Physical Exam 2 Narrative: EXAM NARRATIVE: General: Alert, no acute distress. Skin: Warm, dry. Head: Normocephalic, atraumatic. Neck: Supple, trachea midline. Eye: Extraocular movements are intact. Ears, nose, mouth and throat: mucosa moist. Cardiovascular: Regular, Normal peripheral perfusion. Respiratory: Lungs are clear to auscultation, respirations are non-labored, breath sounds are equal, Symmetrical chest wall expansion. Gastrointestinal: Soft, Nontender, Non distended Musculoskeletal: Normal ROM, no deformity. Neurological: Alert and oriented, No focal neurological deficit observed. No facial droop. No slurred speech. No motor deficits. He describes some numbness in his right hand at this time but does not have any sensory deficits. Psychiatric: Cooperative, appropriate mood & affect. Course 2 Vital Signs: Vital signs: Vital Signs Temperature 98.1 F 10/13/25 11:36 Pulse Rate 78 10/13/25 12:59 Respiratory Rate 13 10/13/25 12:28 Blood Pressure 100/74 10/13/25 12:59 Pulse Oximetry 95 10/13/25 12:59 Oxygen Delivery Me thod Room Air 10/13/25 12:28 MDM - Neuro Symptoms/Deficit Medical Decision Making Medical decision making Patient's reason for coming to the emergency room: Social determinants: I reviewed the patient's medical record. I reviewed the patient's current home meds Alternate historians: None Differential diagnosis for patient with focal neurologic deficit(s) includes but not limited to and based on the above HPI, review of systems and physical exam: ischemic stroke, hemorrhagic stroke and embolic stroke secondary to atrial fibrillation), TIA, Sanchez's palsy, metabolic encephalopathy with previous stroke. Orders placed to evaluate differential diagnosis based on the above differential, HPI and physical exam Last known well time was sometime yesterday. Patient currently has no obvious serious deficits NIH Stroke Scale/Score (NIHSS) from [employer] on 10/13/2025 All calculations should be rechecked by clinician prior to use RESULT SUMMARY: 0 points NIH Stroke Scale INPUTS: 1A: Level of consciousness ?> 0 = Alert; keenly responsive 1B: Ask month and age ?> 0 = Both questions right 1C: 'Blink eyes' & 'squeeze hands' ?> 0 = Performs both tasks 2: Horizontal extraocular movements ?> 0 = Normal 3: Visual courtney ?> 0 = No visual loss 4: Facial palsy ?> 0 = Normal symmetry 5A: Left arm motor drift ?> 0 = No drift for 10 seconds 5B: Right arm motor drift ?> 0 = No drift for 10 seconds 6A: Left leg motor drift ?> 0 = No drift for 5 seconds 6B: Right leg motor drift ?> 0 = No drift for 5 seconds 7: Limb Ataxia ?> 0 = No ataxia 8: Sensation ?> 0 = Normal; no sensory loss 9: Language/aphasia ?> 0 = Normal; no aphasia 10: Dysarthria ?> 0 = Normal 11: Extinction/inattention ?> 0 = No abnormality CT head: No acute intracranial process. No intracranial hemorrhage, no evidence of infarct. No evidence of acute fracture. This was reviewed and interpreted by myself the emergency room physician. I also reviewed the radiology report. EKG: Time 1204. Rate 77. Normal sinus rhythm, No ST-T changes, no ectopy, normal ID & QRS intervals, This was reviewed and interpreted by myself the ER physician at 1208 Lab Review: Laboratory results were reviewed and interpreted by myself the emergency room physician. Lab work is unremarkable. No leukocytosis. No anemia. Mild elevation in BUN and creatinine of 15 and 1.3.Slightly above his baseline. Assessment of risk: Level of risk: Moderate risk patient. Hospitalization considerations: No indication for admission today. Reexamination: Patient remained stable. No increased work of breathing. No altered mental status. No focal motor deficits. Assessment and plan: Paresthesia Dehydration ?IV Solu-Medrol and a 500 mL liter normal saline bolus in the emergency room - Discharged home - Discussed plan with patient. Answered any questions. - Evaluation and treatment of this problem were appropriate in the emergency setting. Lab Data 10/13/25 12:00 10/13/25 12:[address] 10/13/25 11:37 IMPRESSION: 1. No acute intracranial hemorrhage or edema. 2. Very minimal atrophy and small vessel disease. Stable since 10/09/2023. Notified Loyd Temple DO at 10/13/2025 11:51 AM. Laboratory Results WBC 9.36 10^3/uL (3.29-11.43) 10/13/25 12:00 RBC 4.47 10^6/uL (3.85-5.65) 10/13/25 12:00 Hgb 10.60 g/dL (11.27-16.99) L 10/13/25 12:00 Hct 35.0 % (37-53) L 10/13/25 12:00 MCV 78.3 fl (82-101) L 10/13/25 12:00 MCH 23.7 pg (27-33) L 10/13/25 12:00 MCHC 30.3 g/dL (30-55) 10/13/25 12:00 RDW 16.6 % (12.1-15.1) H 10/13/25 12:00 Plt Count 200 10^3/cmm (157-399) 10/13/25 12:00 MPV 10.2 fL (7.4-10.4) 10/13/25 12:00 Neut % (Auto) 58.0 % 10/13/25 12:00 Lymph % (Auto) 23.4 % 10/13/25 12:00 [place] % (Auto) 14.7 % 10/13/25 12:00 Eos % (Auto) 3.3 % 10/13/25 12:00 Baso % (Auto) 0.4 % 10/13/25 12:00 Neut # (Auto) 5.42 10^3/uL (1.8-7.7) 10/13/25 12:00 Lymph # (Auto) 2.2 10^3/uL (0.8-4.8) 10/13/25 12:00 [place] # (Auto) 1.4 10^3/uL (0.2-0.9) H 10/13/25 12:00 Eos # (Auto) 0.3 10^3/uL (0.0-0.8) 10/13/25 12:00 Baso # (Auto) 0.0 10^3/uL (0.0-0.1) 10/13/25 12:00 Nucleated RBC % (auto) 0 % 10/13/25 12:00 Nucleated RBCs # 0.0 /100WBC 10/13/25 12:00 PT 13.20 SECONDS (12.1-14.9) 10/13/25 12:00 INR 0.93 (0.8-1.2) 10/13/25 12:00 APTT 29.1 SECONDS (23.9-36.7) 10/13/25 12:00 Sodium 137 mmol/L (136-145) 10/13/25 12:00 Potassium 3.8 mmol/L (3.5-5.1) 10/13/25 12:00 Chloride 100 mmol/L (98-107) 10/13/25 12:00 Carbon Dioxide 27 mmol/L (22-29) 10/13/25 12:00 Anion Gap 13.8 (5-19) 10/13/25 12:00 BUN 15 mg/dL (6-20) 10/13/25 12:00 Creatinine 1.3 mg/dL (0.7-1.2) H 10/13/25 12:00 GFR Calculation 58.7 mL/min (90-130) L 10/13/25 12:00 Glucose 136 mg/dL (65-115) H 10/13/25 12:00 Calculated Osmolality 287 mOsm/kg (285-295) 10/13/25 12:00 Calcium 8.9 mg/dL (8.5-10.5) 10/13/25 12:00 Total Bilirubin 0.3 mg/dL (0.15-1.2) 10/13/25 12:00 AST 20 U/L (0-40) 10/13/25 12:00 ALT 12 U/L (0-41) 10/13/25 12:00 Alkaline Phosphatase 59 U/L (40-130) 10/13/25 12:00 Total Protein 7.0 g/dL (6.6-8.7) 10/13/25 12:00 Albumin 4.3 g/dL (3.5-5.2) 10/13/25 12:00 Globulin 2.7 g/dL (1.3-4.6) 10/13/25 12:00 Urine Color Yellow (Yellow) 10/13/25 12:18 Urine Appearance Clear (CLEAR) 10/13/25 12:18 Urine pH 5.5 (5-7) 10/13/25 12:18 Ur Specific [place] 1.040 (1.005-1.030) H 10/13/25 12:18 Urine Protein Negative (Negative) 10/13/25 12:18 Urine Glucose (UA) 3+ (Normal) H 10/13/25 12:18 Urine Ketones Negative (Negative) 10/13/25 12:18 Urine Blood Negative (Negative) 10/13/25 12:18 Urine Nitrate Negative (Negative) 10/13/25 12:18 Urine Bilirubin Negative (Negative) 10/13/25 12:18 Urine Urobilinogen 0.2 mg/dL (Negative) 10/13/25 12:18 Ur Leukocyte Esterase Negative (Negative) 10/13/25 12:18 Urine RBC 0-2 /hpf (0-2) 10/13/25 12:18 Urine WBC 0-5 /hpf (0-5) 10/13/25 12:18 Ur Squamous Epith Cells 0-5 /hpf (0-5) 10/13/25 12:18 Amorphous Sediment Not Reportable 10/13/25 12:18 Urine Bacteria None seen /hpf (NONE) 10/13/25 12:18 Hyaline Casts 0.40 /lpf 10/13/25 12:18 Urine Opiates Screen Negative ng/mL (Negative) 10/13/25 12:18 Ur Barbiturates Screen Negative ng/mL (Negative) 10/13/25 12:18 Ur Phencyclidine Scrn Negative ng/mL (Negative) 10/13/25 12:18 Ur Amphetamines Screen Negative ng/mL (Negative) 10/13/25 12:18 U Benzodiazepines Scrn Negative ng/mL (Negative) 10/13/25 12:18 Urine Cocaine Screen Negative ng/mL (Negative) 10/13/25 12:18 U Marijuana (THC) Screen Negative ng/mL (Negative) 10/13/25 12:18 All radiology interpretation(s) finalized by discharge Discharge Plan Discharge Patient Disposition: Home Clinical Impression: Paresthesia Condition: Stable Prescriptions: New prednisone 20 mg tablet 60 mg PO DAILY 5 Days Qty: 15 0RF No Action (DME) Dexcom G7 Sensor Device See Rx Instructions .ROUTE .COMPLEX Qty: 9 3RF Dose Instruction: USE DIRECTED Rx Instructions: use to monitor blood glucose level Linzess 72 mcg capsule 72 mcg PO .HS diclofenac sodium [Arthritis Pain (diclofenac)] 1 % gel 4 g topical QID PRN (Reason: arth) Rx Instructions: apply to single knee, ankle, foot; for foot includes sole/toes/top of foot (DME) Dexcom G7 Front Services Agent Misc See Rx Instructions .Route Qty: 1 0RF Rx Instructions: As directed metformin 500 mg tablet extended release 24 hr 500 mg PO BID Qty: 180 2RF Rx Instructions: 500 mg orally twice a day; Humira(CF) Pen 40 mg/0.4 mL pen injector kit 40 mg SUBCUT Q14D Qty: 2 5RF leflunomide 20 mg tablet 20 mg PO DAILY Qty: 90 1RF prednisone 10 mg tablet See Rx Instructions PO .COMPLEX PRN (Reason: joint pain) Qty: 30 1RF Rx Instructions: take 1 or 2 tab daily for 3-7 days prn joint pain flare PO PRN; watch sugars buspirone 10 mg tablet 20 mg PO TID Qty: 180 11RF hydroxyzine HCl 50 mg tablet 50 mg PO QID PRN (Reason: anxiety) Qty: 120 11RF vilazodone [Viibryd] 40 mg tablet 40 mg PO QAM Qty: 30 11RF quetiapine [Seroquel] 100 mg tablet 100 mg PO .HS Qty: 30 11RF mupirocin [Centany] 2 % ointment 1 applic topical BID 7 Days Qty: 22 0RF (DME) lancets [Accu-Chek Softclix Lancets] Misc See Rx Instructions .Route Qty: 100 0RF Rx Instructions: As directed (DME) pen needle, diabetic [TechLITE Pen Needle] 31 gauge x 3/16 needle See Rx Instructions .Route Qty: 100 5RF Rx Instructions: As directed metoprolol succinate 50 mg tablet extended release 24 hr 50 mg PO DAILY Qty: 90 0RF Rx Instructions: Take 1 tablet by mouth once daily dexlansoprazole 60 mg capsule,biphase delayed releas 60 mg PO DAILY haloperidol 5 mg tablet 5 mg PO BID PRN (Reason: Anxiety) famotidine 40 mg tablet 40 mg PO BEDTIME insulin lispro [Humalog KwikPen Insulin] 100 unit/mL insulin pen 2 unit SUBCUT TID PRN (Reason: Hyperglycemia) pregabalin [Lyrica] 75 mg capsule 150 mg PO BEDTIME insulin glargine [Lantus Solostar U-100 Insulin] 100 unit/mL (3 mL) insulin pen 40 unit SUBCUT BID PRN (Reason: Hyperglycemia) cyclobenzaprine 5 mg tablet 5 mg PO TID PRN (Reason: Spasms) Rx Instructions: Take 1 tablet by mouth three times daily as needed for muscle spasm dapagliflozin propanediol [Farxiga] 10 mg tablet 10 mg PO DAILY Rx Instructions: TAKE 1 TABLET BY MOUTH ONCE DAILY IN THE MORNING sucralfate 1 gram tablet 1 g PO BID 28 Days Qty: 56 0RF Discharge Orders: Discharge ED (Routine); Ordered 10/13/25 Ordered By: Ludy Murphy Referrals: Ofe Paula, LENS MOLDER [Primary Care Provider, Family Practice] Discharge Diet: Usual diet Discharge Activity: Increase activity as tolerated Patient Instructions: Paresthesia (ED), Opioid Safety, Pain Management, Patient Portal & Justin Instructions Activity Restrictions/Additional Instructions: Thank you for choosing [facility] for your healthcare needs today. You have been screened and evaluated and felt safe for discharge. Health conditions do change or evolve sometimes and as such it is important that you follow up with your Primary Doctor to be re checked, 3-5 days is a general good time frame for follow up. You are always welcome to return to the ED for re assessment if your symptoms are worsening or you have new concerns. (Please note that included in your discharge packet is information concerning opioid safety and pain management. This information is given to all patients who are discharged from the ER regardless of their discharge diagnosis or the medicines they usually take or are prescribed.) Print Language: Israeli Coding Level of Care Code ED Gameplay Programmer for Marcos Scott
[2025-10-13 11:43] VITALS: BP 116/86; PULSE 83; RESP 14; O2SAT 95
--- NOTE | 2025-10-13 12:04 | ECG_ITS ---
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
[2025-10-13 12:05] LABS: Hematocrit 35.0 % (37-53); Hemoglobin 10.60 g/dL (11.27-16.99); Mean Corpuscular HGB Conc 30.3 g/dL (30-55); Mean Corpuscular Hemoglobin 23.7 pg (27-33); Mean Corpuscular Volume 78.3 fl (82-101); Nucleated Red Blood Cells % 0 %; Platelet Count 200 10^3/cmm (157-399); Red Blood Count 4.47 10^6/uL (3.85-5.65); White Blood Count 9.36 10^3/uL (3.29-11.43)
[2025-10-13 12:18] LABS: INR 0.93 (0.8-1.2); Prothrombin Time 13.20 SECONDS (12.1-14.9)
[2025-10-13 12:19] LABS: Partial Thromboplastin Time 29.1 SECONDS (23.9-36.7)
[2025-10-13 12:24] LABS: Alanine Aminotransferase 12 U/L (0-41); Albumin Level 4.3 g/dL (3.5-5.2); Alkaline Phosphatase 59 U/L (40-130); Anion Gap 13.8 (5-19); Aspartate Amino Transferase 20 U/L (0-40); Blood Urea Nitrogen 15 mg/dL (6-20); Calcium 8.9 mg/dL (8.5-10.5); Carbon Dioxide 27 mmol/L (22-29); Chloride 100 mmol/L (98-107); Creatinine Clr Calc Pharmacy 71.1919; Globulin 2.7 g/dL (1.3-4.6); Glucose 136 mg/dL (65-115); Osmolality Calculated 287 mOsm/kg (285-295); Potassium 3.8 mmol/L (3.5-5.1); Sodium 137 mmol/L (136-145); Total Protein 7.0 g/dL (6.6-8.7)
[2025-10-13 12:28] VITALS: BP 111/78; PULSE 73; RESP 13; O2SAT 90
[2025-10-13 12:29] LABS: Glucose Urine UA 3+ (Normal); Nitrate Urine Negative (Negative)
[2025-10-13 12:34] LABS: Add Urine Microscopic? YES
[2025-10-13 12:35] LABS: Specific Gravity, Urine 1.040 (1.005-1.030)
[2025-10-13 12:36] LABS: PCP Screen Urine Negative (Negative)
[2025-10-13] MEDS: methylPREDNISolone sod succ 125 mg/2 mL INJ IVP (12:56)
[2025-10-13 12:59] VITALS: BP 100/74; PULSE 78; O2SAT 95
== END 2025-10-13 13:34 | disposition home or self-care (01) ==
PROVIDERS: Family Medicine; Emergency Provider Emergency Medicine; PCP Registered Nurse
DX: R20.2 Paresthesia of skin (principal); Z79.84 Long term (current) use of oral hypoglycemic drugs; Z79.4 Long term (current) use of insulin; F17.210 Nicotine dependence, cigarettes, uncomplicated; E78.5 Hyperlipidemia, unspecified; E11.22 Type 2 diabetes mellitus with diabetic chronic kidney disease; I12.9 Hypertensive chronic kidney disease with stage 1 through stage 4 chronic kidney disease, or unspecified chronic kidney disease; N18.30 Chronic kidney disease, stage 3 unspecified
CPT/HCPCS: 36415; 36416; 70450; 80053; 80306; 81001; 82962; 85025; 85610; 85730; 93005; 96361; 96374; 99285; J2919; J7040